=== PATIENT | female | born 1965 | race Caucasian/White ===

== ENCOUNTER → 2019-02-23 | Outpatient (CLI) | payer BC ==
[~2019-02-23] MED LIST: CATHETER FLUSH 10 ML SYR IV PRN; HOLD METFORMIN - RECEIVED CONTRAST 20 ML VIAL IV SCH; IOHEXOL 350 MG/ML 100 ML (OMNIPAQUE 350) VIAL IV ONE; NS 100 ML (IVPB) BAG IV ONE
[2019-02-23 15:59] LABS: CREATININE SERUM 1.05 MG/DL (0.60-1.30)
--- NOTE | 2019-02-23 16:28 | Diagnostic Imaging Report ---
PROCEDURE: CT angiography of the chest with contrast. TECHNIQUE: Multiple contiguous axial images were obtained through the chest after uneventful bolus administration of intravenous contrast. 3D reconstructed CTA MIP acquisitions were also performed. Auto Exposure Controls were utilized during the CT exam to meet ALARA standards for radiation dose reduction. INDICATION: Breathing difficulty and hemoptysis. COMPARISON: No prior studies are available for comparison. FINDINGS: Evaluation of the pulmonary arterial system is without evidence of thromboembolism. No filling defects are seen within central, lobar, or segmental branches. The thoracic aorta is normal in caliber. No dissection is seen. No definite axillary, hilar, or mediastinal lymphadenopathy is identified. No pericardial or pleural fluid is identified. No pulmonary masses or nodules are seen. There is some atelectasis or scarring in the right middle lobe. Upper abdomen is unremarkable. Bony structures are nonacute. IMPRESSION: 1. No evidence of pulmonary embolism or thoracic aortic dissection. No acute feature is identified. Dictated by: Dictated on workstation # [id number]
== END ==
LOC: RAD 15:22
PROVIDERS: ATTEND Internal Medicine Critical Care Medicine
DX: J44.9 Chronic obstructive pulmonary disease, unspecified (principal); R04.2 Hemoptysis; Z72.0 Tobacco use
CPT/HCPCS: 36415; 71275; 82565; 84520

== ENCOUNTER 2019-03-09 05:50 | Outpatient (CLI) | payer BC ==
[~2019-03-09] VITALS: Ht 162.6 cm; Wt 64.9 kg
[2019-03-09] MEDS ORDERED: VNL37.5T PO (14:36)
[2019-03-09] MEDS ORDERED: LOSA100T57 PO (14:36)
[2019-03-09] MEDS ORDERED: PANT40TA3 PO (14:36)
[2019-03-09] MEDS ORDERED: EZET10TA5 PO (14:36)
[2019-03-09] MEDS ORDERED: FLUT1BLS IH (14:36)
[2019-03-09] MEDS ORDERED: ZOLP10TA5 PO (14:36)
[2019-03-09] MEDS ORDERED: VERA180T11 PO (14:36)
[2019-03-09] MEDS ORDERED: ATOR20TA66 PO (14:36)
== END 2019-03-09 14:37 | disposition home or self-care (01) ==
LOC: PREOP 05:50
PROVIDERS: ATTEND Internal Medicine Critical Care Medicine
DX: Z01.818 Encounter for other preprocedural examination (principal)

== ENCOUNTER 2019-03-11 07:10 | Day surgery (SDC) | payer BC ==
[2019-03-11] VITALS (17 sets, daily range): BP systolic 114–237; BP diastolic 70–104
[~2019-03-11 07:10] MED LIST changes: +ATOR20TA66 PO; -CATHETER FLUSH 10 ML SYR IV PRN; +EZET10TA5 PO; +FLUT1BLS IH; -HOLD METFORMIN - RECEIVED CONTRAST 20 ML VIAL IV SCH; -IOHEXOL 350 MG/ML 100 ML (OMNIPAQUE 350) VIAL IV ONE; +LOSA100T57 PO; -NS 100 ML (IVPB) BAG IV ONE; +PANT40TA3 PO; +VERA180T11 PO; +VNL37.5T PO; +ZOLP10TA5 PO
[2019-03-11] MEDS ORDERED: LIDOCAINE PF 2% 5 ML (XYLOCAINE) VIAL INJ ONE (07:11)
[2019-03-11] MEDS ORDERED: LIDOCAINE JELLY 2% 6 ML SYRINGE MM ONE (07:11)
[2019-03-11] MEDS ORDERED: LIDOCAINE PF 1% 2 ML VIAL IJ ONE (07:11)
[2019-03-11] MEDS ORDERED: NS IV 500 ML 500 ML IV PRN (07:21)
[2019-03-11] MEDS ORDERED: NS IV 500 ML 500 ML ONE (07:25)
[2019-03-11] MEDS ORDERED: fentaNYL INJECTION 100 MCG/2 ML AMP IVP ONE (07:30)
[2019-03-11] MEDS ORDERED: MIDAZOLAM 2 MG/2 ML (VERSED) VIAL IVP ONE (07:30)
[2019-03-11] MEDS ORDERED: morphine INJ 10 MG/ML 1ML (SYR OR VIAL) ONE (08:06)
[2019-03-11] MEDS ORDERED: MIDAZOLAM 2 MG/2 ML (VERSED) VIAL ONE ×5 (08:06→08:13)
--- NOTE | 2019-03-11 08:07 | Progress Note-Pre Operative ---
Pre-Operative Progress Note H&P Reviewed The H&P was reviewed, patient examined and no changes noted. Time Seen by Provider: 08:07 Date H&P Reviewed: Mar 11, 2019 Time H&P Reviewed: 08:07 Pre-Operative Diagnosis: Cough ROCHELLE DOTY DO Mar 11, 2019 08:07
--- NOTE | 2019-03-11 08:08 | Pre-Op Note & Conscious Sedat ---
Pre-Operative Progress Note H&P Reviewed The H&P was reviewed, patient examined and no changes noted. Date H&P Reviewed: Mar 11, 2019 Time H&P Reviewed: 08:08 Conscious Sedation Pre-Proced Time 08:07 ASA Score 3 For ASA 3 and 4: Consider anesthesia and medical clearance. Also, for patients with a history of failed moderate sedation consider anesthesia. Airway Lungs Heart ASA score ASA 1: a normal healthy patient ASA 2: a patient with a mild systemic disease (mid diabetes, controlled hypertension, obesity ASA 3: a patient with a severe systemic disease that limits activity (angina, COPD, prior Myocardial infarction) ASA 4: a patient with an incapacitating disease that is a constant threat to life (CHF, renal failure) ASA 5: a moribund patient not expected to survive 24 hrs. (ruptured aneurysm) ASA 6: a declared brain- patient whose organs are being harvested. For emergent operations, add the letter E after the classification Mallampati Classification Grade 3 Sedation Plan Analgesia, Amnesia, Plan communicated to team members, Discussed options with patient/fam, Discussed risks with patient/fam The patient is an appropriate candidate to undergo the planned procedure, sedation, and anesthesia. The patient immediately re-assessed prior to indication. ROCHELLE DOTY DO Mar 11, 2019 08:08
--- NOTE | 2019-03-11 08:09 | Pulmonary Procedures ---
Pulmonary Procedures Date of Procedure Date of Service: Mar 11, 2019 Bronch Bronchoscopy with bronchoalveolar lavage (BAL), transbronchial washes and, brushes. Preop DX cough Postop DX: same Complications: none After informed consent obtained and formal time out pt was sedated using Fentanyl and Versed. Bronchoscope was advanced through the nare and vocal cords. 1% lidocaine was used to anesthetize vocal cords, epiglottis, toibas, and left/right main stem bronchus. An anatomical tour was undertaken down to the segmental bronchi bilaterally. No endobronchial lesions noted. From the RML a bronchoalveolar lavage (BAL), transbronchial washes and, brushes were obtained. Pt tolerated procedure well. No complications noted. Stat CXR is pending. ROCHELLE DOTY DO Mar 11, 2019 08:09
[2019-03-11] MEDS: morphine INJ 10 MG/ML 1ML (SYR OR VIAL) IVP PRN ×2 (08:24→08:27)
[2019-03-11] MEDS: morphine INJ 10 MG/ML 1ML (SYR OR VIAL) IVP STA (08:24)
--- NOTE | 2019-03-11 09:11 | Diagnostic Imaging Report ---
INDICATION: Status post bronchoscopy. TIME OF EXAM: 8:58 AM No prior studies are available for comparison. FINDINGS: The heart size is normal. There is no evidence of pneumothorax, status post bronchoscopy. There may be minimal infiltrate in right base. There is no effusion. IMPRESSION: No evidence of pneumothorax, status post bronchoscopy. Dictated by: Dictated on workstation # [id number]
--- OUTSIDE RECORDS SUMMARY | 2019-04-01 10:26 | XMS REPORT | Clinical Summary ---
Author Author Admin, [facility] Organization [facility] Address Unknown Phone Unavailable Allergies, Adverse Reactions, Alerts Allergy Name Reaction Description Start Date Severity Status Provider IVP DYE rash and itching Critical Active Audelia Ramon MD Conditions or Problems Problem Name Problem Code Onset Date Status Entry Date Provider Comment Standard Description Annotate Stress incontinence 788.32 Active Audelia Ramon MD Stress incontinence, male Cystocele 618.01 Active Audelia Ramon MD Cystocele, midline Tobacco abuse 305.1 Active Audelia Ramon MD Tobacco use disorder BMI 24-24.9 Resolved Vonda Cary MD Body Mass Index between 19-24, adult Cystocele Midline 618.01 Active Vonda Cary MD Cystocele, midline Yeast infection 112.9 Active Vonda Cary MD Candidiasis of unspecified site BMI 24-24.9 Active Vonda Cary MD Body Mass Index between 19-24, adult BMI 24-24.9 Inactive Lynette Elder Medication List Medication Instructions Start Date Stop Date Generic Name NDC Status Provider Patient Instruction DIFLUCAN 150 MG ORAL TABLET Take one by mouth daily FLUCONAZOLE 17270579528 No Longer Active Angelina Spencer Active VENLAFAXINE HCL ER 37.5 MG ORAL TABLET EXTENDED RELEASE 24 HOUR 1 tablet twice daily VENLAFAXINE HCL 90605468770 Active Bonita Ramírez LPN Active LOSARTAN POTASSIUM 50 MG ORAL TABLET once daily LOSARTAN POTASSIUM 65518562300 Active Bonita Ramírez LPN Active CALAN SR 180 MG ORAL TABLET EXTENDED RELEASE once at bedtime VERAPAMIL HCL 64403114550 Active Bonita Ramírez LPN Active AMBIEN 10 MG ORAL TABLET 1 tablet for sleep ZOLPIDEM TARTRATE 37680484513 Active Bonita Ramírez TECH INTERN Active METOCLOPRAMIDE HCL 5 MG ORAL TABLET 1 tablet twice daily METOCLOPRAMIDE HCL 07902319192 No Longer Active Bonita Ramírez LPN Active PROBIOTIC PEARLS ADVANTAGE ORAL CAPSULE PROBIOTIC PRODUCT 17527427388 No Longer Active Bonita Ramírez TECH INTERN Active FISH OIL 1000 MG ORAL CAPSULE DELAYED RELEASE 1 pill by mouth once daily for cholesterol OMEGA-3 FATTY ACIDS 30457097589 No Longer Active Bonita Ramírez LPN Active TRAZODONE HCL 150 MG ORAL TABLET 1 tablet at night TRAZODONE HCL 95106954038 No Longer Active Vonda Cary MD Active CRESTOR 20 MG ORAL TABLET 1 tablet daily ROSUVASTATIN CALCIUM 56930409232 Active Audelia Ramon MD Active LISINOPRIL 5 MG ORAL TABLET 1x daily if needed LISINOPRIL 05321036443 No Longer Active Audelia Ramon MD Active ZOLPIDEM TARTRATE 5 MG ORAL TABLET 1 pill by mouth nightly as needed for sleep ZOLPIDEM TARTRATE 66696270511 No Longer Active Audelia Ramon MD Active SPIRIVA RESPIMAT 2.5 MCG/ACT INHALATION AEROSOL SOLUTION 2 puffs daily TIOTROPIUM BROMIDE MONOHYDRATE 17397138692 Active Audelia Ramon MD Active ZETIA 10 MG ORAL TABLET 1 tablet daily EZETIMIBE 19870572645 Active Audelia Ramon MD Active PANTOPRAZOLE SODIUM 40 MG ORAL TABLET DELAYED RELEASE 1 pill by mouth daily PANTOPRAZOLE SODIUM 59371361575 Active Audelia Ramon MD Active ASPIRIN 81 MG ORAL TABLET CHEWABLE 1 daily ASPIRIN 58773202429 Active Audelia Ramon MD Active ZOLPIDEM TARTRATE 5 MG ORAL TABLET 1 pill by mouth nightly as needed for sleep ZOLPIDEM TARTRATE 5 MG ORAL TABLET 936321 ZOLPIDEM TARTRATE Inactive LISINOPRIL 5 MG ORAL TABLET 1x daily if needed LISINOPRIL 5 MG ORAL TABLET 961153 LISINOPRIL Inactive TRAZODONE HCL 150 MG ORAL TABLET 1 tablet at night TRAZODONE HCL 150 MG ORAL TABLET 701150 TRAZODONE HCL Inactive FISH OIL 1000 MG ORAL CAPSULE DELAYED RELEASE 1 pill by mouth once daily for cholesterol FISH OIL 1000 MG ORAL CAPSULE DELAYED RELEASE OMEGA- 3 FATTY ACIDS Inactive PROBIOTIC PEARLS ADVANTAGE ORAL CAPSULE PROBIOTIC PEARLS ADVANTAGE ORAL CAPSULE PROBIOTIC PRODUCT Inactive METOCLOPRAMIDE HCL 5 MG ORAL TABLET 1 tablet twice daily METOCLOPRAMIDE HCL 5 MG ORAL TABLET 879340 METOCLOPRAMIDE HCL Inactive DIFLUCAN 150 MG ORAL TABLET Take one by mouth daily DIFLUCAN 150 MG ORAL TABLET 247930 FLUCONAZOLE Inactive Immunizations Vaccine Administration Date Value Standard Description influenza immunization (Flu Vax) has been administered Done according to patient influenza virus vaccine, unspecified formulation Vital Signs Date Name Value Unit Range Description blood pressure, diastolic, repeated by physician 70 BP nogueira blood pressure, diastolic 70 mm[Hg] BP nogueira blood pressure, systolic, repeated by physician 112 BP sys blood pressure, systolic 112 mm[Hg] BP sys height E&M 65 [in_us] Bdy height pulse rate E&M 80 /min Heart rate temperature E&M 98.2 [degF] Body temperature weight E&M 147.31 [lb_av] Weight Measured blood pressure, diastolic, repeated by physician 71 BP nogueira blood pressure, diastolic 71 mm[Hg] BP n[place]ira blood pressure, systolic, repeated by physician 113 BP sys blood pressure, systolic 113 mm[Hg] BP sys height E&M 65 [in_us] Bdy height pulse rate E&M 79 /min Heart rate weight E&M 147.31 [lb_av] Weight Measured blood pressure, diastolic, repeated by physician 79 BP nogueira blood pressure, diastolic 79 mm[Hg] BP n[place] blood pressure, systolic, repeated by physician 124 BP sys blood pressure, systolic 124 mm[Hg] BP sys height E&M 65 [in_us] Bdy height pulse rate E&M 74 /min Heart rate temperature E&M 98.6 [degF] Body temperature weight E&M 146.31 [lb_av] Weight Measured Encounters Code Encounter Date Provider Facility CPT-89243 Level 4 New Patient 19:53:31 METERS SUPERINTENDENT Vonda Cary MD [facility] CPT-72932 Level 4 Est. Patient 09:44:43 CDT Audelia Ramon MD [facility] Procedures Code Procedure Name Date Entry Date Standard Description CPT-75586 Postop F/U Visit 11:43:39 CDT CPT-23507 Postop F/U Visit 19:48:51 METERS SUPERINTENDENT CPT-65306 Bladder Scan 19:53:31 METERS SUPERINTENDENT CPT-47146 Smoking Cessation counseling 09:45:04 CDT CPT-OV Office Visit 07:50:14 CDT
--- OUTSIDE RECORDS SUMMARY | 2019-04-01 10:27 | XMS REPORT | Clinical Summary ---
Author Author Admin, [facility] Organization [facility] Address Unknown Phone Unavailable Allergies, Adverse Reactions, [...] TABLET Take one by mouth daily FLUCONAZOLE 73202617592 No Longer Active Angelina Spencer Active VENLAFAXINE HCL ER 37.5 MG ORAL TABLET EXTENDED RELEASE 24 HOUR 1 tablet twice daily VENLAFAXINE HCL 52070509203 Active Bonita Ramírez LPN Active LOSARTAN POTASSIUM 50 MG ORAL TABLET once daily LOSARTAN POTASSIUM 12150464484 Active Bonita Ramírez LPN Active CALAN SR 180 MG ORAL TABLET EXTENDED RELEASE once at bedtime VERAPAMIL HCL 45956317411 Active Bonita Ramírez LPN Active AMBIEN 10 MG ORAL TABLET 1 tablet for sleep ZOLPIDEM TARTRATE 78246042764 Active Bonita Ramírez LPN Active METOCLOPRAMIDE HCL 5 MG ORAL TABLET 1 tablet twice daily METOCLOPRAMIDE HCL 37497176095 No Longer Active Bonita Ramírez LPN Active PROBIOTIC PEARLS ADVANTAGE ORAL CAPSULE PROBIOTIC PRODUCT 35440920857 No Longer Active Bonita Ramírez VARNISH BLENDER Active FISH OIL 1000 MG ORAL CAPSULE DELAYED RELEASE 1 pill by mouth once daily for cholesterol OMEGA-3 FATTY ACIDS 76591758923 No Longer Active Bonita Ramírez LPN Active TRAZODONE HCL 150 MG ORAL TABLET 1 tablet at night TRAZODONE HCL 62418400877 No Longer Active Vonda Cary MD Active CRESTOR 20 MG ORAL TABLET 1 tablet daily ROSUVASTATIN CALCIUM 32679708835 Active Audelia Ramon MD Active LISINOPRIL 5 MG ORAL TABLET 1x daily if needed LISINOPRIL 61309749851 No Longer Active Audelia Ramon MD Active ZOLPIDEM TARTRATE 5 MG ORAL TABLET 1 pill by mouth nightly as needed for sleep ZOLPIDEM TARTRATE 27932996227 No Longer Active Audelia Ramon MD Active SPIRIVA RESPIMAT 2.5 MCG/ACT INHALATION AEROSOL SOLUTION 2 puffs daily TIOTROPIUM BROMIDE MONOHYDRATE 65345279661 Active Audelia Ramon MD Active ZETIA 10 MG ORAL TABLET 1 tablet daily EZETIMIBE 66870460210 Active Audelia Ramon MD Active PANTOPRAZOLE SODIUM 40 MG ORAL TABLET DELAYED RELEASE 1 pill by mouth daily PANTOPRAZOLE SODIUM 11331899146 Active Audelia Ramon MD Active ASPIRIN 81 MG ORAL TABLET CHEWABLE 1 daily ASPIRIN 60023467025 Active Audelia Ramon MD Active ZOLPIDEM TARTRATE 5 MG ORAL TABLET 1 pill by mouth nightly as needed for sleep ZOLPIDEM TARTRATE 5 MG ORAL TABLET 694854 ZOLPIDEM TARTRATE Inactive LISINOPRIL 5 MG ORAL TABLET 1x daily if needed LISINOPRIL 5 MG ORAL TABLET 466000 LISINOPRIL Inactive TRAZODONE HCL 150 MG ORAL TABLET 1 tablet at night TRAZODONE HCL 150 MG ORAL TABLET 694347 TRAZODONE HCL Inactive FISH OIL 1000 MG ORAL CAPSULE DELAYED RELEASE 1 pill by mouth once daily for cholesterol FISH OIL 1000 MG ORAL CAPSULE DELAYED RELEASE OMEGA- 3 FATTY ACIDS Inactive PROBIOTIC PEARLS ADVANTAGE ORAL CAPSULE PROBIOTIC PEARLS ADVANTAGE ORAL CAPSULE PROBIOTIC PRODUCT Inactive METOCLOPRAMIDE HCL 5 MG ORAL TABLET 1 tablet twice daily METOCLOPRAMIDE HCL 5 MG ORAL TABLET 503911 METOCLOPRAMIDE HCL Inactive DIFLUCAN 150 MG ORAL TABLET Take one by mouth daily DIFLUCAN 150 MG ORAL TABLET 154510 FLUCONAZOLE Inactive Immunizations Vaccine Administration Date Value [...] Measured Encounters Code Encounter Date Provider Facility CPT-99370 Level 4 New Patient 19:53:31 EXTERNAL GRINDER Vonda Cary MD [facility] CPT-81980 Level 4 Est. Patient 09:44:43 CDT Audelia Ramon MD [facility] Procedures Code Procedure Name Date Entry Date Standard Description CPT-52702 Postop F/U Visit 11:43:39 CDT CPT-22295 Postop F/U Visit 19:48:51 EXTERNAL GRINDER CPT-80270 Bladder Scan 19:53:31 EXTERNAL GRINDER CPT-17449 Smoking Cessation counseling 09:45:04 CDT CPT-OV Office Visit 07:50:14 CDT
--- OUTSIDE RECORDS SUMMARY | 2019-04-01 10:27 | XMS REPORT | Clinical Summary ---
Author Author Admin, [facility] Organization [facility] Address Unknown Phone Unavailable Allergies, Adverse [...] MD Candidiasis of unspecified site BMI 24-24.9 Inactive Lynette Ching Medication List Medication Instructions Start Date Stop Date Generic Name NDC Status Provider Patient Instruction DIFLUCAN 150 MG ORAL TABLET Take one by mouth daily FLUCONAZOLE 74171315661 No Longer Active Angelina Spencer Active VENLAFAXINE HCL ER 37.5 MG ORAL TABLET EXTENDED RELEASE 24 HOUR 1 tablet twice daily VENLAFAXINE HCL 20319551401 Active Bonita Ramírez LPN Active LOSARTAN POTASSIUM 50 MG ORAL TABLET once daily LOSARTAN POTASSIUM 18630524079 Active Bonita Ramírez LPN Active CALAN SR 180 MG ORAL TABLET EXTENDED RELEASE once at bedtime VERAPAMIL HCL 26709919307 Active Bonita Ramírez LPN Active AMBIEN 10 MG ORAL TABLET 1 tablet for sleep ZOLPIDEM TARTRATE 31903823013 Active Bonita Ramírez LPN Active METOCLOPRAMIDE HCL 5 MG ORAL TABLET 1 tablet twice daily METOCLOPRAMIDE HCL 72125704401 No Longer Active Bonita Ramírez LPN Active PROBIOTIC PEARLS ADVANTAGE ORAL CAPSULE PROBIOTIC PRODUCT 96739785006 No Longer Active Bonita Ramírez LPN Active FISH OIL 1000 MG ORAL CAPSULE DELAYED RELEASE 1 pill by mouth once daily for cholesterol OMEGA-3 FATTY ACIDS 65688672961 No Longer Active Bonita Ramírez LPN Active TRAZODONE HCL 150 MG ORAL TABLET 1 tablet at night TRAZODONE HCL 24572387240 No Longer Active Vonda Cary MD Active CRESTOR 20 MG ORAL TABLET 1 tablet daily ROSUVASTATIN CALCIUM 86793726830 Active Audelia Ramon MD Active LISINOPRIL 5 MG ORAL TABLET 1x daily if needed LISINOPRIL 66998597606 No Longer Active Audelia Ramon MD Active ZOLPIDEM TARTRATE 5 MG ORAL TABLET 1 pill by mouth nightly as needed for sleep ZOLPIDEM TARTRATE 77635524472 No Longer Active Audelia Ramon MD Active SPIRIVA RESPIMAT 2.5 MCG/ACT INHALATION AEROSOL SOLUTION 2 puffs daily TIOTROPIUM BROMIDE MONOHYDRATE 89027508015 Active Audelia Ramon MD Active ZETIA 10 MG ORAL TABLET 1 tablet daily EZETIMIBE 87671320482 Active Audelia Ramon MD Active PANTOPRAZOLE SODIUM 40 MG ORAL TABLET DELAYED RELEASE 1 pill by mouth daily PANTOPRAZOLE SODIUM 11470540567 Active Audelia Ramon MD Active ASPIRIN 81 MG ORAL TABLET CHEWABLE 1 daily ASPIRIN 08956508573 Active Audelia Ramon MD Active ZOLPIDEM TARTRATE 5 MG ORAL TABLET 1 pill by mouth nightly as needed for sleep ZOLPIDEM TARTRATE 5 MG ORAL TABLET 951669 ZOLPIDEM TARTRATE Inactive LISINOPRIL 5 MG ORAL TABLET 1x daily if needed LISINOPRIL 5 MG ORAL TABLET 088557 LISINOPRIL Inactive TRAZODONE HCL 150 MG ORAL TABLET 1 tablet at night TRAZODONE HCL 150 MG ORAL TABLET 762954 TRAZODONE HCL Inactive FISH OIL 1000 MG ORAL CAPSULE DELAYED RELEASE 1 pill by mouth once daily for cholesterol FISH OIL 1000 MG ORAL CAPSULE DELAYED RELEASE OMEGA- 3 FATTY ACIDS Inactive PROBIOTIC PEARLS ADVANTAGE ORAL CAPSULE PROBIOTIC PEARLS ADVANTAGE ORAL CAPSULE PROBIOTIC PRODUCT Inactive METOCLOPRAMIDE HCL 5 MG ORAL TABLET 1 tablet twice daily METOCLOPRAMIDE HCL 5 MG ORAL TABLET 690901 METOCLOPRAMIDE HCL Inactive DIFLUCAN 150 MG ORAL TABLET Take one by mouth daily DIFLUCAN 150 MG ORAL TABLET 323702 FLUCONAZOLE Inactive Immunizations Vaccine Administration Date Value Standard Description influenza immunization (Flu Vax) has been administered Done according to patient influenza virus vaccine, unspecified formulation Vital Signs Date Name Value Unit Range Description blood pressure, diastolic, repeated by physician 71 [...] Measured Encounters Code Encounter Date Provider Facility CPT-91742 Level 4 New Patient 19:53:31 WEATHERIZATION DIRECTOR Vonda Cary MD [facility] CPT-56999 Level 4 Est. Patient 09:44:43 CDT Audelia Ramon MD [facility] Procedures Code Procedure Name Date Entry Date Standard Description CPT-65114 Postop F/U Visit 19:48:51 WEATHERIZATION DIRECTOR CPT-60487 Bladder Scan 19:53:31 WEATHERIZATION DIRECTOR CPT-26068 Smoking Cessation counseling 09:45:04 CDT CPT-OV Office Visit 07:50:14 CDT
--- OUTSIDE RECORDS SUMMARY | 2019-04-01 10:27 | XMS REPORT | Clinical Summary ---
Author Author Admin, [facility] Organization [facility] Address Unknown Phone Unavailable Allergies, Adverse Reactions, [...] TABLET Take one by mouth daily FLUCONAZOLE 89040229173 No Longer Active Angelina Spencer Active VENLAFAXINE HCL ER 37.5 MG ORAL TABLET EXTENDED RELEASE 24 HOUR 1 tablet twice daily VENLAFAXINE HCL 23775053208 Active Bonita Ramírez LPN Active LOSARTAN POTASSIUM 50 MG ORAL TABLET once daily LOSARTAN POTASSIUM 77040586700 Active Bonita Ramírez LPN Active CALAN SR 180 MG ORAL TABLET EXTENDED RELEASE once at bedtime VERAPAMIL HCL 82772730281 Active Bonita Ramírez LPN Active AMBIEN 10 MG ORAL TABLET 1 tablet for sleep ZOLPIDEM TARTRATE 48971549008 Active Bonita Ramírez RIM TURNING MACHINE OPERATOR Active METOCLOPRAMIDE HCL 5 MG ORAL TABLET 1 tablet twice daily METOCLOPRAMIDE HCL 03530835663 No Longer Active Bonita Ramírez LPN Active PROBIOTIC PEARLS ADVANTAGE ORAL CAPSULE PROBIOTIC PRODUCT 90412989431 No Longer Active Bonita Ramírez RIM TURNING MACHINE OPERATOR Active FISH OIL 1000 MG ORAL CAPSULE DELAYED RELEASE 1 pill by mouth once daily for cholesterol OMEGA-3 FATTY ACIDS 68219751366 No Longer Active Bonita Ramírez LPN Active TRAZODONE HCL 150 MG ORAL TABLET 1 tablet at night TRAZODONE HCL 90538837717 No Longer Active Vonda Cary MD Active CRESTOR 20 MG ORAL TABLET 1 tablet daily ROSUVASTATIN CALCIUM 95936470465 Active Audelia Ramon MD Active LISINOPRIL 5 MG ORAL TABLET 1x daily if needed LISINOPRIL 77042055218 No Longer Active Audelia Ramon MD Active ZOLPIDEM TARTRATE 5 MG ORAL TABLET 1 pill by mouth nightly as needed for sleep ZOLPIDEM TARTRATE 78865608702 No Longer Active Audelia Ramon MD Active SPIRIVA RESPIMAT 2.5 MCG/ACT INHALATION AEROSOL SOLUTION 2 puffs daily TIOTROPIUM BROMIDE MONOHYDRATE 43596294100 Active Audelia Ramon MD Active ZETIA 10 MG ORAL TABLET 1 tablet daily EZETIMIBE 82433248274 Active Audelia Ramon MD Active PANTOPRAZOLE SODIUM 40 MG ORAL TABLET DELAYED RELEASE 1 pill by mouth daily PANTOPRAZOLE SODIUM 21628619052 Active Audelia Ramon MD Active ASPIRIN 81 MG ORAL TABLET CHEWABLE 1 daily ASPIRIN 60017676544 Active Audelia Ramon MD Active ZOLPIDEM TARTRATE 5 MG ORAL TABLET 1 pill by mouth nightly as needed for sleep ZOLPIDEM TARTRATE 5 MG ORAL TABLET 728925 ZOLPIDEM TARTRATE Inactive LISINOPRIL 5 MG ORAL TABLET 1x daily if needed LISINOPRIL 5 MG ORAL TABLET 046152 LISINOPRIL Inactive TRAZODONE HCL 150 MG ORAL TABLET 1 tablet at night TRAZODONE HCL 150 MG ORAL TABLET 776885 TRAZODONE HCL Inactive FISH OIL 1000 MG ORAL CAPSULE DELAYED RELEASE 1 pill by mouth once daily for cholesterol FISH OIL 1000 MG ORAL CAPSULE DELAYED RELEASE OMEGA- 3 FATTY ACIDS Inactive PROBIOTIC PEARLS ADVANTAGE ORAL CAPSULE PROBIOTIC PEARLS ADVANTAGE ORAL CAPSULE PROBIOTIC PRODUCT Inactive METOCLOPRAMIDE HCL 5 MG ORAL TABLET 1 tablet twice daily METOCLOPRAMIDE HCL 5 MG ORAL TABLET 808117 METOCLOPRAMIDE HCL Inactive DIFLUCAN 150 MG ORAL TABLET Take one by mouth daily DIFLUCAN 150 MG ORAL TABLET 661954 FLUCONAZOLE Inactive Immunizations Vaccine Administration Date Value [...] Measured Encounters Code Encounter Date Provider Facility CPT-19537 Level 4 New Patient 19:53:31 ALTERATIONS EXPERT Vonda Cary MD [facility] CPT-29173 Level 4 Est. Patient 09:44:43 CDT Audelia Ramon MD [facility] Procedures Code Procedure Name Date Entry Date Standard Description CPT-50545 Postop F/U Visit 11:43:39 CDT CPT-94864 Postop F/U Visit 19:48:51 ALTERATIONS EXPERT CPT-82144 Bladder Scan 19:53:31 ALTERATIONS EXPERT CPT-85880 Smoking Cessation counseling 09:45:04 CDT CPT-OV Office Visit 07:50:14 CDT
--- OUTSIDE RECORDS SUMMARY | 2019-04-01 10:27 | XMS REPORT | Clinical Summary ---
Author Author Admin, [facility] Organization [facility] Address Unknown Phone Unavailable Allergies, Adverse Reactions, Alerts Allergy Name Reaction Description Start Date Severity Status Provider IVP DYE rash and itching Critical Active Audelia Rmaon MD Conditions or Problems Problem Name Problem [...] TABLET Take one by mouth daily FLUCONAZOLE 28895586985 No Longer Active Angelina Spencer Active VENLAFAXINE HCL ER 37.5 MG ORAL TABLET EXTENDED RELEASE 24 HOUR 1 tablet twice daily VENLAFAXINE HCL 44007516082 Active Bonita Ramírez LPN Active LOSARTAN POTASSIUM 50 MG ORAL TABLET once daily LOSARTAN POTASSIUM 48557383371 Active Bonita Ramírez LPN Active CALAN SR 180 MG ORAL TABLET EXTENDED RELEASE once at bedtime VERAPAMIL HCL 43205090613 Active Bonita Ramírez LPN Active AMBIEN 10 MG ORAL TABLET 1 tablet for sleep ZOLPIDEM TARTRATE 21422173173 Active Bonita Ramírez LPN Active METOCLOPRAMIDE HCL 5 MG ORAL TABLET 1 tablet twice daily METOCLOPRAMIDE HCL 59743483764 No Longer Active Bonita Ramírez LPN Active PROBIOTIC PEARLS ADVANTAGE ORAL CAPSULE PROBIOTIC PRODUCT 85554277269 No Longer Active Bonita Ramírez LPN Active FISH OIL 1000 MG ORAL CAPSULE DELAYED RELEASE 1 pill by mouth once daily for cholesterol OMEGA-3 FATTY ACIDS 50713331349 No Longer Active Bonita Ramírez LPN Active TRAZODONE HCL 150 MG ORAL TABLET 1 tablet at night TRAZODONE HCL 64402740191 No Longer Active Vonda Cary MD Active CRESTOR 20 MG ORAL TABLET 1 tablet daily ROSUVASTATIN CALCIUM 14133802312 Active Audelia Ramon MD Active LISINOPRIL 5 MG ORAL TABLET 1x daily if needed LISINOPRIL 52297645025 No Longer Active Audelia Ramon MD Active ZOLPIDEM TARTRATE 5 MG ORAL TABLET 1 pill by mouth nightly as needed for sleep ZOLPIDEM TARTRATE 73413601737 No Longer Active Audelia Ramon MD Active SPIRIVA RESPIMAT 2.5 MCG/ACT INHALATION AEROSOL SOLUTION 2 puffs daily TIOTROPIUM BROMIDE MONOHYDRATE 14820413844 Active Audelia Ramon MD Active ZETIA 10 MG ORAL TABLET 1 tablet daily EZETIMIBE 02367703866 Active Audelia Ramon MD Active PANTOPRAZOLE SODIUM 40 MG ORAL TABLET DELAYED RELEASE 1 pill by mouth daily PANTOPRAZOLE SODIUM 71013768706 Active Audelia Ramon MD Active ASPIRIN 81 MG ORAL TABLET CHEWABLE 1 daily ASPIRIN 02908135921 Active Audelia Ramon MD Active ZOLPIDEM TARTRATE 5 MG ORAL TABLET 1 pill by mouth nightly as needed for sleep ZOLPIDEM TARTRATE 5 MG ORAL TABLET 697475 ZOLPIDEM TARTRATE Inactive LISINOPRIL 5 MG ORAL TABLET 1x daily if needed LISINOPRIL 5 MG ORAL TABLET 137078 LISINOPRIL Inactive TRAZODONE HCL 150 MG ORAL TABLET 1 tablet at night TRAZODONE HCL 150 MG ORAL TABLET 537383 TRAZODONE HCL Inactive FISH OIL 1000 MG ORAL CAPSULE DELAYED RELEASE 1 pill by mouth once daily for cholesterol FISH OIL 1000 MG ORAL CAPSULE DELAYED RELEASE OMEGA- 3 FATTY ACIDS Inactive PROBIOTIC PEARLS ADVANTAGE ORAL CAPSULE PROBIOTIC PEARLS ADVANTAGE ORAL CAPSULE PROBIOTIC PRODUCT Inactive METOCLOPRAMIDE HCL 5 MG ORAL TABLET 1 tablet twice daily METOCLOPRAMIDE HCL 5 MG ORAL TABLET 157731 METOCLOPRAMIDE HCL Inactive DIFLUCAN 150 MG ORAL TABLET Take one by mouth daily DIFLUCAN 150 MG ORAL TABLET 680761 FLUCONAZOLE Inactive Immunizations Vaccine Administration Date Value [...] Measured Encounters Code Encounter Date Provider Facility CPT-81160 Level 4 New Patient 19:53:31 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 Patient 09:44:43 CDT Audelia Ramon MD [facility] Procedures Code Procedure Name Date Entry Date Standard Description CPT-70096 Postop F/U Visit 19:48:51 PREMIUM CANCELLATION CLERK CPT-05591 Bladder Scan 19:53:31 PREMIUM CANCELLATION CLERK CPT-53170 Smoking Cessation counseling 09:45:04 CDT CPT-OV Office Visit 07:50:14 CDT
--- OUTSIDE RECORDS SUMMARY | 2019-04-01 10:28 | XMS REPORT | Clinical Summary ---
Author Author Admin, [facility] Organization [facility] Address Unknown Phone Unavailable Allergies, Adverse Reactions, [...] TABLET Take one by mouth daily FLUCONAZOLE 23681026538 Active Angelina Spencer Active VENLAFAXINE HCL ER 37.5 MG ORAL TABLET EXTENDED RELEASE 24 HOUR 1 tablet twice daily VENLAFAXINE HCL 86295311028 Active Bonita Ramírez LPN Active LOSARTAN POTASSIUM 50 MG ORAL TABLET once daily LOSARTAN POTASSIUM 74981106731 Active Bonita Ramírez LPN Active CALAN SR 180 MG ORAL TABLET EXTENDED RELEASE once at bedtime VERAPAMIL HCL 06036777473 Active Bonita Ramírez LPN Active AMBIEN 10 MG ORAL TABLET 1 tablet for sleep ZOLPIDEM TARTRATE 50438244683 Active Bonita Ramírez LPN Active METOCLOPRAMIDE HCL 5 MG ORAL TABLET 1 tablet twice daily METOCLOPRAMIDE HCL 43618810013 No Longer Active Bonita Ramírez [facility] Active PROBIOTIC PEARLS ADVANTAGE ORAL CAPSULE PROBIOTIC PRODUCT 37400986664 No Longer Active Bonita Ramírez [facility] Active FISH OIL 1000 MG ORAL CAPSULE DELAYED RELEASE 1 pill by mouth once daily for cholesterol OMEGA-3 FATTY ACIDS 34520977677 No Longer Active Bonita [facility] Active TRAZODONE HCL 150 MG ORAL TABLET 1 tablet at night TRAZODONE HCL 01084177390 No Longer Active Vonda Cary MD Active CRESTOR 20 MG ORAL TABLET 1 tablet daily ROSUVASTATIN CALCIUM 54194980620 Active Audelia Ramon MD Active LISINOPRIL 5 MG ORAL TABLET 1x daily if needed LISINOPRIL 97872573194 No Longer Active Audelia Ramon MD Active ZOLPIDEM TARTRATE 5 MG ORAL TABLET 1 pill by mouth nightly as needed for sleep ZOLPIDEM TARTRATE 45571620222 No Longer Active Audelia Ramon MD Active SPIRIVA RESPIMAT 2.5 MCG/ACT INHALATION AEROSOL SOLUTION 2 puffs daily TIOTROPIUM BROMIDE MONOHYDRATE 27732846902 Active Audelia Ramon MD Active ZETIA 10 MG ORAL TABLET 1 tablet daily EZETIMIBE 95281072628 Active Audelia Ramon MD Active PANTOPRAZOLE SODIUM 40 MG ORAL TABLET DELAYED RELEASE 1 pill by mouth daily PANTOPRAZOLE SODIUM 94084923773 Active Audelia Ramon MD Active ASPIRIN 81 MG ORAL TABLET CHEWABLE 1 daily ASPIRIN 32907068323 Active Audelia Ramon MD Active METOCLOPRAMIDE HCL 5 MG ORAL TABLET 1 tablet twice daily METOCLOPRAMIDE HCL 5 MG ORAL TABLET 950199 METOCLOPRAMIDE HCL Inactive TRAZODONE HCL 150 MG ORAL TABLET 1 tablet at night TRAZODONE HCL 150 MG ORAL TABLET 028829 TRAZODONE HCL Inactive LISINOPRIL 5 MG ORAL TABLET 1x daily if needed LISINOPRIL 5 MG ORAL TABLET 977841 LISINOPRIL Inactive ZOLPIDEM TARTRATE 5 MG ORAL TABLET 1 pill by mouth nightly as needed for sleep ZOLPIDEM TARTRATE 5 MG ORAL TABLET 296101 ZOLPIDEM TARTRATE Inactive FISH OIL 1000 MG ORAL CAPSULE DELAYED RELEASE 1 pill by mouth once daily for cholesterol FISH OIL 1000 MG ORAL CAPSULE DELAYED RELEASE OMEGA- 3 FATTY ACIDS Inactive PROBIOTIC PEARLS ADVANTAGE ORAL CAPSULE PROBIOTIC PEARLS ADVANTAGE ORAL CAPSULE PROBIOTIC PRODUCT Inactive Immunizations Vaccine Administration Date Value Standard [...] Measured Encounters Code Encounter Date Provider Facility CPT-87217 Level 4 New Patient 19:53:31 MICHELLE Cary MD [facility] CPT-45820 Level 4 Est. Patient 09:44:43 CDT Audelia Ramon MD [facility] Procedures Code Procedure Name Date Entry Date Standard Description CPT-29618 Postop F/U Visit 19:48:51 DISTRIBUTOR OPERATOR CPT-12634 Bladder Scan 19:53:31 DISTRIBUTOR OPERATOR CPT-91833 Smoking Cessation counseling 09:45:04 CDT CPT-OV Office Visit 07:50:14 CDT
--- OUTSIDE RECORDS SUMMARY | 2019-04-01 10:28 | XMS REPORT | Clinical Summary ---
Author Author Admin, [facility] Organization [facility] Address Unknown Phone Unavailable Allergies, Adverse Reactions, [...] Ramon MD Tobacco use disorder BMI 24-24.9 Active Vonda Cary MD Body Mass Index between 19-24, adult Cystocele Midline 618.01 Active Vonda Cary MD Cystocele, midline Medication List Medication Instructions Start Date Stop Date Generic Name NDC Status Provider Patient Instruction TRAZODONE HCL 150 MG ORAL TABLET 1 tablet at night TRAZODONE HCL 77083531988 No Longer Active Vonda Cary MD Active CRESTOR 20 MG ORAL TABLET 1 tablet daily ROSUVASTATIN CALCIUM 83255195418 Active Audelia Ramon MD Active LISINOPRIL 5 MG ORAL TABLET 1x daily if needed LISINOPRIL 57650612081 No Longer Active Audelia Ramon MD Active ZOLPIDEM TARTRATE 5 MG ORAL TABLET 1 pill by mouth nightly as needed for sleep ZOLPIDEM TARTRATE 40734622010 No Longer Active Audelia Ramon MD Active SPIRIVA RESPIMAT 2.5 MCG/ACT INHALATION AEROSOL SOLUTION 2 puffs daily TIOTROPIUM BROMIDE MONOHYDRATE 26710041935 Active Audelia Ramon MD Active METOCLOPRAMIDE HCL 5 MG ORAL TABLET 1 tablet twice daily METOCLOPRAMIDE HCL 63598079449 Active Audelia Ramon MD Active PROBIOTIC PEARLS ADVANTAGE ORAL CAPSULE PROBIOTIC PRODUCT 88312796377 Active Audelia Ramno MD Active ZETIA 10 MG ORAL TABLET 1 tablet daily EZETIMIBE 10994601483 Active Audelia Ramon MD Active PANTOPRAZOLE SODIUM 40 MG ORAL TABLET DELAYED RELEASE 1 pill by mouth daily PANTOPRAZOLE SODIUM 79099989601 Active Audelia Ramon MD Active ASPIRIN 81 MG ORAL TABLET CHEWABLE 1 daily ASPIRIN 86110614760 Active Audelia Ramon MD Active FISH OIL 1000 MG ORAL CAPSULE DELAYED RELEASE 1 pill by mouth once daily for cholesterol OMEGA-3 FATTY ACIDS 47000849313 Active Audelia Ramon MD Active ZOLPIDEM TARTRATE 5 MG ORAL TABLET 1 pill by mouth nightly as needed for sleep ZOLPIDEM TARTRATE 5 MG ORAL TABLET 464970 ZOLPIDEM TARTRATE Inactive LISINOPRIL 5 MG ORAL TABLET 1x daily if needed LISINOPRIL 5 MG ORAL TABLET 451557 LISINOPRIL Inactive TRAZODONE HCL 150 MG ORAL TABLET 1 tablet at night TRAZODONE HCL 150 MG ORAL TABLET 261256 TRAZODONE HCL Inactive Immunizations Vaccine Administration Date Value Standard Description influenza immunization (Flu Vax) has been administered Done according to patient influenza virus vaccine, unspecified formulation Vital Signs Date Name Value Unit Range Description blood pressure, diastolic, repeated by physician 79 BP nogueira blood pressure, diastolic 79 mm[Hg] BP nogueira blood pressure, systolic, repeated by physician 124 BP sys blood pressure, systolic 124 mm[Hg] BP sys height E&M 65 [in_us] Bdy height pulse rate E&M 74 /min Heart rate temperature E&M 98.6 [degF] Body temperature weight E&M 146.31 [lb_av] Weight Measured Encounters Code Encounter Date Provider Facility CPT-26852 Level 4 New Patient 19:53:31 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 Patient 09:44:43 CDT Audelia Ramon MD [facility] Procedures Code Procedure Name Date Entry Date Standard Description CPT-53290 Bladder Scan 19:53:31 FRENCH EDGE OPERATOR CPT-18471 Smoking Cessation counseling 09:45:04 CDT CPT-OV Office Visit 07:50:14 CDT
--- OUTSIDE RECORDS SUMMARY | 2019-04-01 10:28 | XMS REPORT | Clinical Summary ---
Author Author Admin, [facility] Organization [facility] Address Unknown Phone Unavailable Allergies, Adverse Reactions, [...] MD Cystocele, midline Tobacco abuse 305.1 Active Auedlia Ramon MD Tobacco use disorder BMI 24-24.9 Active Vonda Cary MD Body Mass Index between 19-24, adult Cystocele Midline 618.01 Active Vonda Cary MD Cystocele, midline Medication List Medication Instructions Start Date Stop Date Generic Name NDC Status Provider Patient Instruction VENLAFAXINE HCL ER 37.5 MG ORAL TABLET EXTENDED RELEASE 24 HOUR 1 tablet twice daily VENLAFAXINE HCL 27402109734 Active Bonita Ramírez LPN Active LOSARTAN POTASSIUM 50 MG ORAL TABLET once daily LOSARTAN POTASSIUM 13461240268 Active Bonita Ramírez SHIFT LAB TECHNICIAN Active CALAN SR 180 MG ORAL TABLET EXTENDED RELEASE once at bedtime VERAPAMIL HCL 00625448088 Active Bonita Ramírez SHIFT LAB TECHNICIAN Active AMBIEN 10 MG ORAL TABLET 1 tablet for sleep ZOLPIDEM TARTRATE 35270890489 Active Bonita Darrell G[facility] Active METOCLOPRAMIDE HCL 5 MG ORAL TABLET 1 tablet twice daily METOCLOPRAMIDE HCL 27978432356 No Longer Active Bonita Ramírez SHIFT LAB TECHNICIAN Active PROBIOTIC PEARLS ADVANTAGE ORAL CAPSULE PROBIOTIC PRODUCT 37666734963 No Longer Active Bonita Ramírez SHIFT LAB TECHNICIAN Active FISH OIL 1000 MG ORAL CAPSULE DELAYED RELEASE 1 pill by mouth once daily for cholesterol OMEGA-3 FATTY ACIDS 93241085843 No Longer Active Bonita Ramírez LPN Active TRAZODONE HCL 150 MG ORAL TABLET 1 tablet at night TRAZODONE HCL 17208366406 No Longer Active Vonda Cary MD Active CRESTOR 20 MG ORAL TABLET 1 tablet daily ROSUVASTATIN CALCIUM 52188181938 Active Audelia Ramon MD Active LISINOPRIL 5 MG ORAL TABLET 1x daily if needed LISINOPRIL 35867747187 No Longer Active Audelia Ramon MD Active ZOLPIDEM TARTRATE 5 MG ORAL TABLET 1 pill by mouth nightly as needed for sleep ZOLPIDEM TARTRATE 77450819367 No Longer Active Audelia Ramon MD Active SPIRIVA RESPIMAT 2.5 MCG/ACT INHALATION AEROSOL SOLUTION 2 puffs daily TIOTROPIUM BROMIDE MONOHYDRATE 60115085254 Active Audelia Ramon MD Active ZETIA 10 MG ORAL TABLET 1 tablet daily EZETIMIBE 90500051564 Active Audelia Ramon MD Active PANTOPRAZOLE SODIUM 40 MG ORAL TABLET DELAYED RELEASE 1 pill by mouth daily PANTOPRAZOLE SODIUM 31616992822 Active Audelia Ramon MD Active ASPIRIN 81 MG ORAL TABLET CHEWABLE 1 daily ASPIRIN 95756597964 Active Audelia Ramon MD Active ZOLPIDEM TARTRATE 5 MG ORAL TABLET 1 pill by mouth nightly as needed for sleep ZOLPIDEM TARTRATE 5 MG ORAL TABLET 088648 ZOLPIDEM TARTRATE Inactive LISINOPRIL 5 MG ORAL TABLET 1x daily if needed LISINOPRIL 5 MG ORAL TABLET 482157 LISINOPRIL Inactive TRAZODONE HCL 150 MG ORAL TABLET 1 tablet at night TRAZODONE HCL 150 MG ORAL TABLET 177831 TRAZODONE HCL Inactive FISH OIL 1000 MG ORAL CAPSULE DELAYED RELEASE 1 pill by mouth once daily for cholesterol FISH OIL 1000 MG ORAL CAPSULE DELAYED RELEASE OMEGA- 3 FATTY ACIDS Inactive PROBIOTIC PEARLS ADVANTAGE ORAL CAPSULE PROBIOTIC PEARLS ADVANTAGE ORAL CAPSULE PROBIOTIC PRODUCT Inactive METOCLOPRAMIDE HCL 5 MG ORAL TABLET 1 tablet twice daily METOCLOPRAMIDE HCL 5 MG ORAL TABLET 957791 METOCLOPRAMIDE HCL Inactive Immunizations Vaccine Administration Date Value [...] Measured Encounters Code Encounter Date Provider Facility CPT-88892 Level 4 New Patient 19:53:31 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 Patient 09:44:43 CDT Audelia Ramon MD [facility] Procedures Code Procedure Name Date Entry Date Standard Description CPT-27266 Bladder Scan 19:53:31 LOG RAFT WORKER CPT-26265 Smoking Cessation counseling 09:45:04 CDT CPT-OV Office Visit 07:50:14 CDT
--- OUTSIDE RECORDS SUMMARY | 2019-04-01 10:28 | XMS REPORT | Clinical Summary ---
Author Author Admin, [facility] Organization [facility] Address Unknown Phone Unavailable Allergies, Adverse Reactions, [...] HOUR 1 tablet twice daily VENLAFAXINE HCL 18907917316 Active Bonita Ramírez LPN Active LOSARTAN POTASSIUM 50 MG ORAL TABLET once daily LOSARTAN POTASSIUM 89601002982 Active Bonita Ramírez WIRE STOCKKEEPER Active CALAN SR 180 MG ORAL TABLET EXTENDED RELEASE once at bedtime VERAPAMIL HCL 81138336808 Active Bonita Ramírez WIRE STOCKKEEPER Active AMBIEN 10 MG ORAL TABLET 1 tablet for sleep ZOLPIDEM TARTRATE 30823422555 Active Bonitaevelyn Ramírez LPN Active METOCLOPRAMIDE HCL 5 MG ORAL TABLET 1 tablet twice daily METOCLOPRAMIDE HCL 88039569851 No Longer Active Bonita Ramírez WIRE STOCKKEEPER Active PROBIOTIC PEARLS ADVANTAGE ORAL CAPSULE PROBIOTIC PRODUCT 43200450391 No Longer Active Bonita Ramírez WIRE STOCKKEEPER Active FISH OIL 1000 MG ORAL CAPSULE DELAYED RELEASE 1 pill by mouth once daily for cholesterol OMEGA-3 FATTY ACIDS 03829475125 No Longer Active Bonita Ramírez LPN Active TRAZODONE HCL 150 MG ORAL TABLET 1 tablet at night TRAZODONE HCL 59658352290 No Longer Active Vonda Cary MD Active CRESTOR 20 MG ORAL TABLET 1 tablet daily ROSUVASTATIN CALCIUM 22911564995 Active Audelia Ramon MD Active LISINOPRIL 5 MG ORAL TABLET 1x daily if needed LISINOPRIL 04612764335 No Longer Active Audelia Ramon MD Active ZOLPIDEM TARTRATE 5 MG ORAL TABLET 1 pill by mouth nightly as needed for sleep ZOLPIDEM TARTRATE 89350501627 No Longer Active Audelia Ramon MD Active SPIRIVA RESPIMAT 2.5 MCG/ACT INHALATION AEROSOL SOLUTION 2 puffs daily TIOTROPIUM BROMIDE MONOHYDRATE 86111247444 Active Audelia Ramon MD Active ZETIA 10 MG ORAL TABLET 1 tablet daily EZETIMIBE 49904117575 Active Audelia Ramon MD Active PANTOPRAZOLE SODIUM 40 MG ORAL TABLET DELAYED RELEASE 1 pill by mouth daily PANTOPRAZOLE SODIUM 35207422369 Active Audelia Ramon MD Active ASPIRIN 81 MG ORAL TABLET CHEWABLE 1 daily ASPIRIN 14049047611 Active Audelia Ramon MD Active ZOLPIDEM TARTRATE 5 MG ORAL TABLET 1 pill by mouth nightly as needed for sleep ZOLPIDEM TARTRATE 5 MG ORAL TABLET 415889 ZOLPIDEM TARTRATE Inactive LISINOPRIL 5 MG ORAL TABLET 1x daily if needed LISINOPRIL 5 MG ORAL TABLET 956169 LISINOPRIL Inactive TRAZODONE HCL 150 MG ORAL TABLET 1 tablet at night TRAZODONE HCL 150 MG ORAL TABLET 885421 TRAZODONE HCL Inactive FISH OIL 1000 MG ORAL CAPSULE DELAYED RELEASE 1 pill by mouth once daily for cholesterol FISH OIL 1000 MG ORAL CAPSULE DELAYED RELEASE OMEGA- 3 FATTY ACIDS Inactive PROBIOTIC PEARLS ADVANTAGE ORAL CAPSULE PROBIOTIC PEARLS ADVANTAGE ORAL CAPSULE PROBIOTIC PRODUCT Inactive METOCLOPRAMIDE HCL 5 MG ORAL TABLET 1 tablet twice daily METOCLOPRAMIDE HCL 5 MG ORAL TABLET 284732 METOCLOPRAMIDE HCL Inactive Immunizations Vaccine Administration Date [...] Measured Encounters Code Encounter Date Provider Facility CPT-85654 Level 4 New Patient 19:53:31 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 Patient 09:44:43 CDT Audelia Ramon MD [facility] Procedures Code Procedure Name Date Entry Date Standard Description CPT-97569 Bladder Scan 19:53:31 STOKER INSTALLATION MECHANIC CPT-84627 Smoking Cessation counseling 09:45:04 CDT CPT-OV Office Visit 07:50:14 CDT
--- OUTSIDE RECORDS SUMMARY | 2019-04-01 10:28 | XMS REPORT | Clinical Summary ---
Author Author Admin, [facility] Organization [facility] Address Unknown Phone Unavailable Allergies, Adverse Reactions, [...] HOUR 1 tablet twice daily VENLAFAXINE HCL 31498917231 Active Bonita Ramírez LPN Active LOSARTAN POTASSIUM 50 MG ORAL TABLET once daily LOSARTAN POTASSIUM 75685935512 Active Bonita Ramírez LPN Active CALAN SR 180 MG ORAL TABLET EXTENDED RELEASE once at bedtime VERAPAMIL HCL 54245499651 Active Bonita Ramírez PROPRIETARY TRADER Active AMBIEN 10 MG ORAL TABLET 1 tablet for sleep ZOLPIDEM TARTRATE 43585099219 Active Bonitaevelyn Ramírez LPN Active METOCLOPRAMIDE HCL 5 MG ORAL TABLET 1 tablet twice daily METOCLOPRAMIDE HCL 04295591346 No Longer Active Bonita Ramírez PROPRIETARY TRADER Active PROBIOTIC PEARLS ADVANTAGE ORAL CAPSULE PROBIOTIC PRODUCT 66548525136 No Longer Active Bonitaevelyn Ramírez LPN Active FISH OIL 1000 MG ORAL CAPSULE DELAYED RELEASE 1 pill by mouth once daily for cholesterol OMEGA-3 FATTY ACIDS 00352545168 No Longer Active Bonita Ramírez LPN Active TRAZODONE HCL 150 MG ORAL TABLET 1 tablet at night TRAZODONE HCL 61870112380 No Longer Active Vonda Cary MD Active CRESTOR 20 MG ORAL TABLET 1 tablet daily ROSUVASTATIN CALCIUM 04026414349 Active Audelia Ramon MD Active LISINOPRIL 5 MG ORAL TABLET 1x daily if needed LISINOPRIL 98940278405 No Longer Active Audelia Ramon MD Active ZOLPIDEM TARTRATE 5 MG ORAL TABLET 1 pill by mouth nightly as needed for sleep ZOLPIDEM TARTRATE 35299825125 No Longer Active Audelia Ramon MD Active SPIRIVA RESPIMAT 2.5 MCG/ACT INHALATION AEROSOL SOLUTION 2 puffs daily TIOTROPIUM BROMIDE MONOHYDRATE 24129273562 Active Audelia Ramon MD Active ZETIA 10 MG ORAL TABLET 1 tablet daily EZETIMIBE 16654319239 Active Audelia Ramon MD Active PANTOPRAZOLE SODIUM 40 MG ORAL TABLET DELAYED RELEASE 1 pill by mouth daily PANTOPRAZOLE SODIUM 12161268134 Active Audelia Ramon MD Active ASPIRIN 81 MG ORAL TABLET CHEWABLE 1 daily ASPIRIN 59146253998 Active Audelia Ramon MD Active ZOLPIDEM TARTRATE 5 MG ORAL TABLET 1 pill by mouth nightly as needed for sleep ZOLPIDEM TARTRATE 5 MG ORAL TABLET 880150 ZOLPIDEM TARTRATE Inactive LISINOPRIL 5 MG ORAL TABLET 1x daily if needed LISINOPRIL 5 MG ORAL TABLET 400178 LISINOPRIL Inactive TRAZODONE HCL 150 MG ORAL TABLET 1 tablet at night TRAZODONE HCL 150 MG ORAL TABLET 521356 TRAZODONE HCL Inactive FISH OIL 1000 MG ORAL CAPSULE DELAYED RELEASE 1 pill by mouth once daily for cholesterol FISH OIL 1000 MG ORAL CAPSULE DELAYED RELEASE OMEGA- 3 FATTY ACIDS Inactive PROBIOTIC PEARLS ADVANTAGE ORAL CAPSULE PROBIOTIC PEARLS ADVANTAGE ORAL CAPSULE PROBIOTIC PRODUCT Inactive METOCLOPRAMIDE HCL 5 MG ORAL TABLET 1 tablet twice daily METOCLOPRAMIDE HCL 5 MG ORAL TABLET 909926 METOCLOPRAMIDE HCL Inactive Immunizations Vaccine Administration Date [...] Measured Encounters Code Encounter Date Provider Facility CPT-21951 Level 4 New Patient 19:53:31 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 Patient 09:44:43 CDT Audelia Ramon MD [facility] Procedures Code Procedure Name Date Entry Date Standard Description CPT-00447 Bladder Scan 19:53:31 BROADCAST CHIEF ENGINEER CPT-47047 Smoking Cessation counseling 09:45:04 CDT CPT-OV Office Visit 07:50:14 CDT
--- OUTSIDE RECORDS SUMMARY | 2019-04-01 10:28 | XMS REPORT | Clinical Summary ---
Author Author Admin, [facility] Organization [facility] Address Unknown Phone Unavailable Allergies, Adverse Reactions, [...] HOUR 1 tablet twice daily VENLAFAXINE HCL 13858127925 Active Bonita Ramírez LPN Active LOSARTAN POTASSIUM 50 MG ORAL TABLET once daily LOSARTAN POTASSIUM 05785006665 Active Bonita Ramírez LPN Active CALAN SR 180 MG ORAL TABLET EXTENDED RELEASE once at bedtime VERAPAMIL HCL 20416117479 Active Bonita Ramírez HUMAN RESOURCE OFFICER Active AMBIEN 10 MG ORAL TABLET 1 tablet for sleep ZOLPIDEM TARTRATE 10451099705 Active Bonitaevelyn Ramírez LPN Active METOCLOPRAMIDE HCL 5 MG ORAL TABLET 1 tablet twice daily METOCLOPRAMIDE HCL 76230481182 No Longer Active Bonita Ramírez LPN Active PROBIOTIC PEARLS ADVANTAGE ORAL CAPSULE PROBIOTIC PRODUCT 73840420232 No Longer Active Bonitaevelyn Ramírez LPN Active FISH OIL 1000 MG ORAL CAPSULE DELAYED RELEASE 1 pill by mouth once daily for cholesterol OMEGA-3 FATTY ACIDS 21531562167 No Longer Active Bonita Ramírez LPN Active TRAZODONE HCL 150 MG ORAL TABLET 1 tablet at night TRAZODONE HCL 43211839935 No Longer Active Vonda Cary MD Active CRESTOR 20 MG ORAL TABLET 1 tablet daily ROSUVASTATIN CALCIUM 47445728046 Active Audelia Ramon MD Active LISINOPRIL 5 MG ORAL TABLET 1x daily if needed LISINOPRIL 95468129862 No Longer Active Audelia Ramon MD Active ZOLPIDEM TARTRATE 5 MG ORAL TABLET 1 pill by mouth nightly as needed for sleep ZOLPIDEM TARTRATE 20218431648 No Longer Active Audelia Ramon MD Active SPIRIVA RESPIMAT 2.5 MCG/ACT INHALATION AEROSOL SOLUTION 2 puffs daily TIOTROPIUM BROMIDE MONOHYDRATE 18106736718 Active Audelia Ramon MD Active ZETIA 10 MG ORAL TABLET 1 tablet daily EZETIMIBE 52787443327 Active Audelia Ramon MD Active PANTOPRAZOLE SODIUM 40 MG ORAL TABLET DELAYED RELEASE 1 pill by mouth daily PANTOPRAZOLE SODIUM 92862936506 Active Audelia Ramon MD Active ASPIRIN 81 MG ORAL TABLET CHEWABLE 1 daily ASPIRIN 49991940437 Active Audelia Ramon MD Active ZOLPIDEM TARTRATE 5 MG ORAL TABLET 1 pill by mouth nightly as needed for sleep ZOLPIDEM TARTRATE 5 MG ORAL TABLET 012459 ZOLPIDEM TARTRATE Inactive LISINOPRIL 5 MG ORAL TABLET 1x daily if needed LISINOPRIL 5 MG ORAL TABLET 510774 LISINOPRIL Inactive TRAZODONE HCL 150 MG ORAL TABLET 1 tablet at night TRAZODONE HCL 150 MG ORAL TABLET 090119 TRAZODONE HCL Inactive FISH OIL 1000 MG ORAL CAPSULE DELAYED RELEASE 1 pill by mouth once daily for cholesterol FISH OIL 1000 MG ORAL CAPSULE DELAYED RELEASE OMEGA- 3 FATTY ACIDS Inactive PROBIOTIC PEARLS ADVANTAGE ORAL CAPSULE PROBIOTIC PEARLS ADVANTAGE ORAL CAPSULE PROBIOTIC PRODUCT Inactive METOCLOPRAMIDE HCL 5 MG ORAL TABLET 1 tablet twice daily METOCLOPRAMIDE HCL 5 MG ORAL TABLET 278448 METOCLOPRAMIDE HCL Inactive Immunizations Vaccine Administration Date [...] Measured Encounters Code Encounter Date Provider Facility CPT-07014 Level 4 New Patient 19:53:31 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 CPT-70231 Level 4 Est. Patient 09:44:43 CDT Audelia Ramon MD [facility] Procedures Code Procedure Name Date Entry Date Standard Description CPT-72159 Bladder Scan 19:53:31 METAL MOULDER'S ASSISTANT CPT-22769 Smoking Cessation counseling 09:45:04 CDT CPT-OV Office Visit 07:50:14 CDT
--- OUTSIDE RECORDS SUMMARY | 2019-04-01 10:29 | XMS REPORT | Clinical Summary ---
Author Author Admin, E Organization [facility] Address Unknown [...] Active Audelia Ramon MD Tobacco use disorder Medication List Medication Instructions Start Date Stop Date Generic Name NDC Status Provider Patient Instruction CRESTOR 20 MG ORAL TABLET 1 tablet daily ROSUVASTATIN CALCIUM 81753350089 Active Audelia Ramon MD Active LISINOPRIL 5 MG ORAL TABS 1x daily if needed LISINOPRIL 45363661965 No Longer Active Audelia Ramon MD Active TRAZODONE HCL 150 MG ORAL TABLET 1 tablet at night TRAZODONE HCL 95384682529 Active Audelia Ramon MD Active ZOLPIDEM TARTRATE 5 MG TABS 1 pill by mouth nightly as needed for sleep ZOLPIDEM TARTRATE 56348496696 No Longer Active Audelia Ramon MD Active SPIRIVA RESPIMAT 2.5 MCG/ACT INH AERS 2 puffs daily TIOTROPIUM BROMIDE MONOHYDRATE 65327481229 Active Audelia Ramon MD Active METOCLOPRAMIDE HCL 5 MG ORAL TABS 1 tablet twice daily METOCLOPRAMIDE HCL 86662483741 Active Audelia Ramon MD Active PROBIOTIC PEARLS ADVANTAGE ORAL CAPS PROBIOTIC PRODUCT 14921232386 Active Audelia Ramon MD Active ZETIA 10 MG ORAL TABS 1 tablet daily EZETIMIBE 19974004346 Active Audelia Ramon MD Active PANTOPRAZOLE SODIUM 40 MG TBEC 1 pill by mouth daily PANTOPRAZOLE SODIUM 52433950336 Active Audelia Ramon MD Active ASPIRIN 81 MG ORAL CHEW 1 daily ASPIRIN 39426185737 Active Audelia Ramon MD Active FISH OIL 1000 MG CPDR 1 pill by mouth once daily for cholesterol OMEGA-3 FATTY ACIDS 14845485194 Active Audelia Ramon MD Active ZOLPIDEM TARTRATE 5 MG TABS 1 pill by mouth nightly as needed for sleep ZOLPIDEM TARTRATE 5 MG TABS 933598 ZOLPIDEM TARTRATE Inactive LISINOPRIL 5 MG ORAL TABS 1x daily if needed LISINOPRIL 5 MG ORAL TABS 391397 LISINOPRIL Inactive Vital Signs Date Name Value Unit Range Description blood pressure, diastolic 87 mm[Hg] BP nogueira blood pressure, systolic 119 mm[Hg] BP sys height E&M 65 [in_us] Bdy height pulse rate E&M 76 /min Heart rate weight E&M 143 [lb_av] Weight Measured Diagnostic Results Date Name Value Unit Range Description Lab Report: UADIP W/MICRO, AUTO - Chemistry protein, total urine random Negative mg/dL Negative RBC, urine, dipstick Negative Negative Lab Report: UADIP W/MICRO, AUTO - Urinalysis urobilinogen, urine, semiquantitative (dipstick) 0.2 E.U./dL Normal leukocyte esterase, urine, by dipstick Negative Negative nitrite, urine, semiquantitative Negative Negative glucose, urine, semiquantitative Negative Negative ketones, urine, by test strip Negative Negative bilirubin, urine Negative Negative urine color Yellow Colorless;Lightyellow;Straw;Yellow appearance, urine Clear Clear specific gravity, urine 1.010 1.000-1.030 pH, urine, semiquantitative 6.0 5.0-8.5 Encounters Code Encounter Date Provider Facility CPT-34533 Level 4 Est. Patient 09:44:43 CDT Audelia Ramon MD [facility] Procedures Code Procedure Name Date Entry Date Standard Description CPT-06316 Smoking Cessation counseling 09:45:04 CDT CPT-OV Office Visit 07:50:14 CDT
--- OUTSIDE RECORDS SUMMARY | 2019-04-01 10:29 | XMS REPORT | Clinical Summary ---
Author Author Admin, STEAVN Organization [facility] Address Unknown Phone Unavailable Allergies, Adverse [...] ORAL TABLET 1 tablet daily ROSUVASTATIN CALCIUM 73101759532 Active Audelia Ramon MD Active LISINOPRIL 5 MG ORAL TABS 1x daily if needed LISINOPRIL 96839032509 No Longer Active Audelia Ramon MD Active TRAZODONE HCL 150 MG ORAL TABLET 1 tablet at night TRAZODONE HCL 75661822910 Active Audelia Ramon MD Active ZOLPIDEM TARTRATE 5 MG TABS 1 pill by mouth nightly as needed for sleep ZOLPIDEM TARTRATE 55138388185 No Longer Active Audelia Ramon MD Active SPIRIVA RESPIMAT 2.5 MCG/ACT INH AERS 2 puffs daily TIOTROPIUM BROMIDE MONOHYDRATE 18784359929 Active Audelia Ramon MD Active METOCLOPRAMIDE HCL 5 MG ORAL TABS 1 tablet twice daily METOCLOPRAMIDE HCL 37405256387 Active Audelia Ramon MD Active PROBIOTIC PEARLS ADVANTAGE ORAL CAPS PROBIOTIC PRODUCT 34893514707 Active Audelia Ramon MD Active ZETIA 10 MG ORAL TABS 1 tablet daily EZETIMIBE 73098524912 Active Audelia Ramon MD Active PANTOPRAZOLE SODIUM 40 MG TBEC 1 pill by mouth daily PANTOPRAZOLE SODIUM 53253514050 Active Audelia Ramon MD Active ASPIRIN 81 MG ORAL CHEW 1 daily ASPIRIN 55594563988 Active Audelia aRmon MD Active FISH OIL 1000 MG CPDR 1 pill by mouth once daily for cholesterol OMEGA-3 FATTY ACIDS 05211150823 Active Audelia Ramon MD Active ZOLPIDEM TARTRATE 5 MG TABS 1 pill by mouth nightly as needed for sleep ZOLPIDEM TARTRATE 5 MG TABS 093202 ZOLPIDEM TARTRATE Inactive LISINOPRIL 5 MG ORAL TABS 1x daily if needed LISINOPRIL 5 MG ORAL TABS 471764 LISINOPRIL Inactive Vital Signs Date Name Value [...] 5.0-8.5 Encounters Code Encounter Date Provider Facility CPT-88576 Level 4 Est. Patient 09:44:43 CDT Audelia Ramon MD [facility] Procedures Code Procedure Name Date Entry Date Standard Description CPT-80057 Smoking Cessation counseling 09:45:04 CDT CPT-OV Office Visit 07:50:14 CDT
--- OUTSIDE RECORDS SUMMARY | 2019-04-01 10:29 | XMS REPORT | Clinical Summary ---
Author Author Admin, [facility] Organization [facility] Address Unknown Phone Unavailable Allergies, Adverse Reactions, Alerts Allergy Name Reaction Description Start Date Severity Status Provider Allergies Unknown Conditions or Problems Problem Name Problem Code Onset Date Status Entry Date Provider Comment Standard Description Annotate Stress incontinence 788.32 Active Audelia Ramon MD Stress incontinence, male Cystocele 618.01 Active Audelia Ramon MD Cystocele, midline Medication List Medication Instructions Start Date Stop Date Generic Name NDC Status Provider Patient Instruction SPIRIVA RESPIMAT 2.5 MCG/ACT INH AERS 2 puffs daily TIOTROPIUM BROMIDE MONOHYDRATE 64079307259 Active Audelia Ramon MD Active METOCLOPRAMIDE HCL 5 MG ORAL TABS 1 tablet twice daily METOCLOPRAMIDE HCL 36419480911 Active Audelia Ramon MD Active PROBIOTIC PEARLS ADVANTAGE ORAL CAPS PROBIOTIC PRODUCT 93650227400 Active Audelia Ramon MD Active ZOLPIDEM TARTRATE 5 MG TABS 1 pill by mouth nightly as needed for sleep ZOLPIDEM TARTRATE 94661129417 Active Audelia Ramon MD Active LISINOPRIL 5 MG ORAL TABS 1x daily if needed LISINOPRIL 63874309500 Active Audelia Ramon MD Active CRESTOR 10 MG TABS 1 tablet by mouth daily at bedtime ROSUVASTATIN CALCIUM 93594592458 Active Audelia Ramon MD Active ZETIA 10 MG ORAL TABS 1 tablet daily EZETIMIBE 40223795343 Active Audelia Ramon MD Active PANTOPRAZOLE SODIUM 40 MG TBEC 1 pill by mouth daily PANTOPRAZOLE SODIUM 71539484857 Active Audelia Ramon MD Active ASPIRIN 81 MG ORAL CHEW 1 daily ASPIRIN 98176899186 Active Audelia Ramon MD Active FISH OIL 1000 MG CPDR 1 pill by mouth once daily for cholesterol OMEGA-3 FATTY ACIDS 55445603430 Active Audelia Ramon MD Active Procedures Code Procedure Name Date Entry Date Standard Description CPT-OV Office Visit 07:50:14 CDT
--- OUTSIDE RECORDS SUMMARY | 2019-04-01 10:29 | XMS REPORT | Clinical Summary ---
Author Author Admin, [facility] Organization [facility] Address Unknown Phone Unavailable Allergies, Adverse Reactions, Alerts Allergy Name Reaction Description Start Date Severity Status Provider No Known Allergies Mattie Bah Conditions or Problems Problem Name Problem Code Onset Date Status Entry Date Provider Comment Standard Description Annotate Stress incontinence 788.32 Active Audelia Ramon MD Stress incontinence, male Cystocele 618.01 Active Audelia Ramon MD Cystocele, midline Medication List Medication Instructions Start Date Stop Date Generic Name NDC Status Provider Patient Instruction SPIRIVA RESPIMAT 2.5 MCG/ACT INH AERS 2 puffs daily TIOTROPIUM BROMIDE MONOHYDRATE 65048130727 Active Audelia Ramon MD Active METOCLOPRAMIDE HCL 5 MG ORAL TABS 1 tablet twice daily METOCLOPRAMIDE HCL 47456518996 Active Audelia Ramon MD Active PROBIOTIC PEARLS ADVANTAGE ORAL CAPS PROBIOTIC PRODUCT 79433340190 Active Audelia Ramon MD Active ZOLPIDEM TARTRATE 5 MG TABS 1 pill by mouth nightly as needed for sleep ZOLPIDEM TARTRATE 32373634050 Active Audelia Ramon MD Active LISINOPRIL 5 MG ORAL TABS 1x daily if needed LISINOPRIL 36510686875 Active Audelia Ramno MD Active CRESTOR 10 MG TABS 1 tablet by mouth daily at bedtime ROSUVASTATIN CALCIUM 61502436133 Active Audelia Ramon MD Active ZETIA 10 MG ORAL TABS 1 tablet daily EZETIMIBE 05163934793 Active Audelia Ramon MD Active PANTOPRAZOLE SODIUM 40 MG TBEC 1 pill by mouth daily PANTOPRAZOLE SODIUM 49223231062 Active Audelia Ramon MD Active ASPIRIN 81 MG ORAL CHEW 1 daily ASPIRIN 28104668573 Active Audelia Ramon MD Active FISH OIL 1000 MG CPDR 1 pill by mouth once daily for cholesterol OMEGA-3 FATTY ACIDS 82163077330 Active Audelia Ramon MD Active Vital Signs Date Name Value Unit Range Description blood pressure, diastolic - 8462-4 80 mm[Hg] BP nogueira blood pressure, systolic - 8480-6 121 mm[Hg] BP sys height E&M - 8302-2 65 [in_us] Bdy height pulse rate E&M - 8867-4 77 /min Heart rate temperature E&M 98.3 [degF] Body temperature weight E&M - 3141-9 141 [lb_av] Weight Measured Procedures Code Procedure Name Date Entry Date Standard Description CPT-OV Office Visit 07:50:14 CDT
--- OUTSIDE RECORDS SUMMARY | 2019-04-01 10:29 | XMS REPORT | Clinical Summary ---
Author Author Admin, STEVAN Organization [facility] Address Unknown Phone Unavailable Allergies, Adverse [...] ORAL TABLET 1 tablet daily ROSUVASTATIN CALCIUM 59086877195 Active Audelia Ramon MD Active LISINOPRIL 5 MG ORAL TABS 1x daily if needed LISINOPRIL 76905986999 No Longer Active Audelia Ramon MD Active TRAZODONE HCL 150 MG ORAL TABLET 1 tablet at night TRAZODONE HCL 57501324282 Active Audelia Ramon MD Active ZOLPIDEM TARTRATE 5 MG TABS 1 pill by mouth nightly as needed for sleep ZOLPIDEM TARTRATE 19877995668 No Longer Active Audelia Ramon MD Active SPIRIVA RESPIMAT 2.5 MCG/ACT INH AERS 2 puffs daily TIOTROPIUM BROMIDE MONOHYDRATE 68308340341 Active Audelia Ramon MD Active METOCLOPRAMIDE HCL 5 MG ORAL TABS 1 tablet twice daily METOCLOPRAMIDE HCL 04550627842 Active Audelia Ramon MD Active PROBIOTIC PEARLS ADVANTAGE ORAL CAPS PROBIOTIC PRODUCT 56232465672 Active Audelia Ramon MD Active ZETIA 10 MG ORAL TABS 1 tablet daily EZETIMIBE 39030899087 Active Audelia Ramon MD Active PANTOPRAZOLE SODIUM 40 MG TBEC 1 pill by mouth daily PANTOPRAZOLE SODIUM 91300294157 Active Audelia Ramon MD Active ASPIRIN 81 MG ORAL CHEW 1 daily ASPIRIN 88649536916 Active Audelia Ramon MD Active FISH OIL 1000 MG CPDR 1 pill by mouth once daily for cholesterol OMEGA-3 FATTY ACIDS 39936287231 Active Audelia Ramon MD Active ZOLPIDEM TARTRATE 5 MG TABS 1 pill by mouth nightly as needed for sleep ZOLPIDEM TARTRATE 5 MG TABS 005073 ZOLPIDEM TARTRATE Inactive LISINOPRIL 5 MG ORAL TABS 1x daily if needed LISINOPRIL 5 MG ORAL TABS 652618 LISINOPRIL Inactive Vital Signs Date Name Value Unit Range Description blood pressure, diastolic 87 mm[Hg] BP nogueira blood pressure, systolic 119 mm[Hg] BP sys height E&M 65 [in_us] Bdy height pulse rate E&M 76 /min Heart rate weight E&M 143 [lb_av] Weight Measured Diagnostic Results Date Name Value Unit Range Description Lab Report: UADIP W/MICRO, AUTO - Chemistry RBC, urine, dipstick Negative Negative protein, total urine random Negative mg/dL Negative Lab Report: UADIP W/MICRO, AUTO - Urinalysis pH, urine, semiquantitative 6.0 5.0-8.5 specific gravity, urine 1.010 1.000-1.030 appearance, urine Clear Clear urine color Yellow Colorless;Lightyellow;Straw;Yellow urobilinogen, urine, semiquantitative (dipstick) 0.2 E.U./dL Normal leukocyte esterase, urine, by dipstick Negative Negative nitrite, urine, semiquantitative Negative Negative glucose, urine, semiquantitative Negative Negative ketones, urine, by test strip Negative Negative bilirubin, urine Negative Negative Encounters Code Encounter Date Provider Facility CPT-85113 Level 4 Est. Patient 09:44:43 CDT Audelia Ramon MD [facility] Procedures Code Procedure Name Date Entry Date Standard Description CPT-51275 Smoking Cessation counseling 09:45:04 CDT CPT-OV Office Visit 07:50:14 CDT
--- OUTSIDE RECORDS SUMMARY | 2019-04-01 10:29 | XMS REPORT | Clinical Summary ---
Author Author Admin, [facility] Organization [facility] Address Unknown Phone Unavailable Allergies, Adverse [...] AERS 2 puffs daily TIOTROPIUM BROMIDE MONOHYDRATE 69611415182 Active Audelia Ramon MD Active METOCLOPRAMIDE HCL 5 MG ORAL TABS 1 tablet twice daily METOCLOPRAMIDE HCL 10453942924 Active Audelia Ramon MD Active PROBIOTIC PEARLS ADVANTAGE ORAL CAPS PROBIOTIC PRODUCT 54125698608 Active Audelia Ramon MD Active ZOLPIDEM TARTRATE 5 MG TABS 1 pill by mouth nightly as needed for sleep ZOLPIDEM TARTRATE 05807907433 Active Audelia Ramon MD Active LISINOPRIL 5 MG ORAL TABS 1x daily if needed LISINOPRIL 39378698947 Active Audelia Ramon MD Active CRESTOR 10 MG TABS 1 tablet by mouth daily at bedtime ROSUVASTATIN CALCIUM 00082247705 Active Audelia Ramon MD Active ZETIA 10 MG ORAL TABS 1 tablet daily EZETIMIBE 32925538464 Active Audelia Ramon MD Active PANTOPRAZOLE SODIUM 40 MG TBEC 1 pill by mouth daily PANTOPRAZOLE SODIUM 53575449629 Active Audelia Ramon MD Active ASPIRIN 81 MG ORAL CHEW 1 daily ASPIRIN 61842927030 Active Audelia Ramon MD Active FISH OIL 1000 MG CPDR 1 pill by mouth once daily for cholesterol OMEGA-3 FATTY ACIDS 69973181403 Active Audelia Ramon MD Active Procedures Code Procedure Name Date Entry Date Standard Description CPT-OV Office Visit 07:50:14 CDT
--- OUTSIDE RECORDS SUMMARY | 2019-04-01 10:29 | XMS REPORT | Clinical Summary ---
Author Author Admin, STEVAN Organization [facility] Address Unknown Phone Unavailable Allergies, Adverse [...] ORAL TABLET 1 tablet daily ROSUVASTATIN CALCIUM 01324524389 Active Audelia Ramon MD Active LISINOPRIL 5 MG ORAL TABLET 1x daily if needed LISINOPRIL 33028264623 No Longer Active Audelia Ramon MD Active TRAZODONE HCL 150 MG ORAL TABLET 1 tablet at night TRAZODONE HCL 84476542756 Active Audelia Ramon MD Active ZOLPIDEM TARTRATE 5 MG ORAL TABLET 1 pill by mouth nightly as needed for sleep ZOLPIDEM TARTRATE 64655966408 No Longer Active Audelia Ramon MD Active SPIRIVA RESPIMAT 2.5 MCG/ACT INHALATION AEROSOL SOLUTION 2 puffs daily TIOTROPIUM BROMIDE MONOHYDRATE 13267829377 Active Audelia Ramon MD Active METOCLOPRAMIDE HCL 5 MG ORAL TABLET 1 tablet twice daily METOCLOPRAMIDE HCL 09033171496 Active Audelia Ramon MD Active PROBIOTIC PEARLS ADVANTAGE ORAL CAPSULE PROBIOTIC PRODUCT 89074512888 Active Audelia Ramon MD Active ZETIA 10 MG ORAL TABLET 1 tablet daily EZETIMIBE 19570380091 Active Audelia Ramon MD Active PANTOPRAZOLE SODIUM 40 MG ORAL TABLET DELAYED RELEASE 1 pill by mouth daily PANTOPRAZOLE SODIUM 73690137648 Active Audelia Ramon MD Active ASPIRIN 81 MG ORAL TABLET CHEWABLE 1 daily ASPIRIN 38632529432 Active Audelia Ramon MD Active FISH OIL 1000 MG ORAL CAPSULE DELAYED RELEASE 1 pill by mouth once daily for cholesterol OMEGA-3 FATTY ACIDS 66631834635 Active Audelia Ramon MD Active ZOLPIDEM TARTRATE 5 MG ORAL TABLET 1 pill by mouth nightly as needed for sleep ZOLPIDEM TARTRATE 5 MG ORAL TABLET 672870 ZOLPIDEM TARTRATE Inactive LISINOPRIL 5 MG ORAL TABLET 1x daily if needed LISINOPRIL 5 MG ORAL TABLET 029819 LISINOPRIL Inactive Vital Signs Date Name Value [...] 5.0-8.5 Encounters Code Encounter Date Provider Facility CPT-28558 Level 4 Est. Patient 09:44:43 CDT Audelia Ramon MD [facility] Procedures Code Procedure Name Date Entry Date Standard Description CPT-61462 Smoking Cessation counseling 09:45:04 CDT CPT-OV Office Visit 07:50:14 CDT
--- OUTSIDE RECORDS SUMMARY | 2019-04-01 10:29 | XMS REPORT | Clinical Summary ---
Author Author Admin, [facility] Organization [facility] Address Unknown Phone Unavailable Allergies, Adverse Reactions, [...] AERS 2 puffs daily TIOTROPIUM BROMIDE MONOHYDRATE 33987335752 Active Audelia Ramon MD Active METOCLOPRAMIDE HCL 5 MG ORAL TABS 1 tablet twice daily METOCLOPRAMIDE HCL 19085669972 Active Audelia Ramon MD Active PROBIOTIC PEARLS ADVANTAGE ORAL CAPS PROBIOTIC PRODUCT 58542275018 Active Audelia Ramon MD Active ZOLPIDEM TARTRATE 5 MG TABS 1 pill by mouth nightly as needed for sleep ZOLPIDEM TARTRATE 86249553551 Active Audelia Ramon MD Active LISINOPRIL 5 MG ORAL TABS 1x daily if needed LISINOPRIL 56888608045 Active Audelia Ramon MD Active CRESTOR 10 MG TABS 1 tablet by mouth daily at bedtime ROSUVASTATIN CALCIUM 66047084315 Active Audelia Ramon MD Active ZETIA 10 MG ORAL TABS 1 tablet daily EZETIMIBE 26747601934 Active Audelia Ramon MD Active PANTOPRAZOLE SODIUM 40 MG TBEC 1 pill by mouth daily PANTOPRAZOLE SODIUM 41507948143 Active Audelia Ramon MD Active ASPIRIN 81 MG ORAL CHEW 1 daily ASPIRIN 26175735843 Active Audelia Ramon MD Active FISH OIL 1000 MG CPDR 1 pill by mouth once daily for cholesterol OMEGA-3 FATTY ACIDS 12373073541 Active Audelia Ramon MD Active Procedures Code Procedure Name Date Entry Date Standard Description CPT-OV Office Visit 07:50:14 CDT
--- OUTSIDE RECORDS SUMMARY | 2019-04-01 10:29 | XMS REPORT | Clinical Summary ---
Author Author Admin, STEVAN Organization [facility] Address Unknown Phone Unavailable Allergies, Adverse [...] ORAL TABLET 1 tablet daily ROSUVASTATIN CALCIUM 37735878801 Active Audelia Ramon MD Active LISINOPRIL 5 MG ORAL TABLET 1x daily if needed LISINOPRIL 02003615990 No Longer Active Audelia Ramon MD Active TRAZODONE HCL 150 MG ORAL TABLET 1 tablet at night TRAZODONE HCL 79183200678 Active Audelia Ramon MD Active ZOLPIDEM TARTRATE 5 MG ORAL TABLET 1 pill by mouth nightly as needed for sleep ZOLPIDEM TARTRATE 32799343066 No Longer Active Audelia Ramon MD Active SPIRIVA RESPIMAT 2.5 MCG/ACT INHALATION AEROSOL SOLUTION 2 puffs daily TIOTROPIUM BROMIDE MONOHYDRATE 61686017131 Active Audelia Ramon MD Active METOCLOPRAMIDE HCL 5 MG ORAL TABLET 1 tablet twice daily METOCLOPRAMIDE HCL 47001900143 Active Audelia Ramon MD Active PROBIOTIC PEARLS ADVANTAGE ORAL CAPSULE PROBIOTIC PRODUCT 41661736818 Active Audelia Ramon MD Active ZETIA 10 MG ORAL TABLET 1 tablet daily EZETIMIBE 23525531585 Active Audelia Ramon MD Active PANTOPRAZOLE SODIUM 40 MG ORAL TABLET DELAYED RELEASE 1 pill by mouth daily PANTOPRAZOLE SODIUM 06609729891 Active Audelia Ramon MD Active ASPIRIN 81 MG ORAL TABLET CHEWABLE 1 daily ASPIRIN 06901647720 Active Audelia Ramon MD Active FISH OIL 1000 MG ORAL CAPSULE DELAYED RELEASE 1 pill by mouth once daily for cholesterol OMEGA-3 FATTY ACIDS 94484982169 Active Audelia Ramon MD Active ZOLPIDEM TARTRATE 5 MG ORAL TABLET 1 pill by mouth nightly as needed for sleep ZOLPIDEM TARTRATE 5 MG ORAL TABLET 516948 ZOLPIDEM TARTRATE Inactive LISINOPRIL 5 MG ORAL TABLET 1x daily if needed LISINOPRIL 5 MG ORAL TABLET 287521 LISINOPRIL Inactive Vital Signs Date Name Value [...] 5.0-8.5 Encounters Code Encounter Date Provider Facility CPT-24065 Level 4 Est. Patient 09:44:43 CDT Audelia Ramon MD [facility] Procedures Code Procedure Name Date Entry Date Standard Description CPT-56212 Smoking Cessation counseling 09:45:04 CDT CPT-OV Office Visit 07:50:14 CDT
--- OUTSIDE RECORDS SUMMARY | 2019-04-01 10:30 | XMS REPORT ---
Author Author Migration, Doctor Organization [facility] Address Unknown Phone Unavailable Care Team Providers Care Survey Rodman Name Role Phone Migration, Doctor Unavailable Unavailable PROBLEMS Type Condition ICD9-CM Code LZW75-EM Code Onset Dates Condition Status SNOMED Code Problem Skin lesion of back L98.9 Active 05939420 Problem Other emphysema J43.8 Active 94317217 Problem Smoking F17.200 Active 03967315 Problem Family history of cardiovascular disease Z82.49 Active 048587737 Problem Borderline abnormal thyroid function test R94.6 Active 366271811 Problem Dyspnea on exertion R06.09 Active 99269564 Problem 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 28327457 Problem Atrial tachycardia I47.1 Active 606573498 Problem Primary insomnia F51.01 Active 3851561 Problem Hot flashes N95.1 Active 920709890 Problem Hypertension I10 Active 41409560 Problem Facial rash R21 Active 229560539 Problem Elevated LFTs R79.89 Active 608218937 Problem Insomnia, unspecified type G47.00 Active 199409326 Problem Gastroparesis K31.84 Active 409360360 Problem Familial hypercholesterolemia E78.0 Active 676252649 Problem Other insomnia G47.09 Active 800910382 Problem Anxiety F41.9 Active 46472125 Problem History of thyroidectomy E89.0 Active 766647060 Problem Thyroiditis E06.9 Active 79311312 Problem Essential hypertension I10 Active 58585495 Problem Chronic obstructive pulmonary disease with acute lower respiratory infection J44.0 Active 728437076 Problem Vitamin D deficiency E55.9 Active 95918441 Problem Hyperlipidemia, unspecified E78.5 Active 68037100 Problem Dyslipidemia E78.5 Active 729716050 Problem Other and unspecified hyperlipidemia E78.5 Active 08227159 Problem Chronic obstructive pulmonary disease, unspecified COPD type J44.9 Active 51580782 Problem Menopausal hot flushes N95.1 Active 776573856 Problem COPD with exacerbation J44.1 Active 762247084 Problem Chronic obstructive pulmonary disease with acute lower respiratory infection J44.0 Active 744243193 ALLERGIES No Information ENCOUNTERS Encounter Location Date Diagnosis [facility] [address] [place] [phone] Feb, [facility] [address] [place] [address] [place] [address] Feb, [facility] [address] [place] [address] Jan, Chronic obstructive pulmonary disease with acute lower respiratory infection J44.0 and Hemoptysis R04.2 [facility] [place] [address] [facility] [id number] [place] [id number] Jan, Hyperlipidemia, unspecified E78.5 [facility] [address] [place] [address] Jan, [facility] [address] [place] [address] Jan, [facility] [address] [place] [address] Jan, Chronic obstructive pulmonary disease with acute lower respiratory infection J44.0 ; Hypertension I10 and Dyslipidemia E78.5 [facility] [address] [place] [address] Dec, [facility] [address] [place] [address] Dec, [facility] [address] [place] [address] Dec, Right lower quadrant pain R10.31 [facility] [address] [place] [address] October, COPD with exacerbation J44.1 and Acute left-sided thoracic back pain M54.6 [facility] [address] [place] [address] Sep, [facility] [address] [place] [address] 16 Sep, 2018 [facility] [address] [place] [address] [place] [address] Sep, [facility] [place] [address] [place] [address] Sep, Smoking F17.200 and Upper respiratory infection with cough and congestion J06.9 [facility] [address] [place] [address] Sep, Infiltrate noted on imaging study R93.89 [facility] [address] [place] [address] Sep, Rib pain R07.81 [facility] [address] [place] [address] Aug, Rib pain R07.81 [facility] [address] [place] [address] Aug, [facility] [address] [place] [address] Aug, [facility] [address] [place] [address] Aug, [facility] [address] [place] [address] Aug, [facility] [address] [place] [address] Aug, Cough R05 [facility] [address] [place] [address] Aug, Right hand pain M79.641 and Atypical pigmented skin lesion L81.9 [facility] [address] [place] [address] Aug, [facility] [address] [place] [address] Aug, De Quervain's disease (radial styloid tenosynovitis) M65.4 and Atypical mole D22.9 [facility] [address] [place] [address] Jul, Cough R05 [facility] [address] [place] [address] Jun, Upper respiratory tract infection, unspecified type J06.9 [facility] [address] [place] [address] Jun, Neck pain on left side M54.2 [facility] [address] [facility] [id number] [place] [address] Jun, [facility] [address] [place] [address] Jun, Neck pain on left side M54.2 and Neck nodule R22.1 [facility] [address] [place] [address] 02 Jun, 2018 Acute gastritis without hemorrhage, unspecified gastritis type K29.[address] [facility] [address] [place] [address] May, Chronic nonintractable headache, unspecified headache type R51 [facility] [address] [place] [address] Apr, Subacute frontal sinusitis J01.10 and Chronic nonintractable headache, unspecified headache type R51 [facility] [address] [place] [address] 02 Apr, [address] [facility] [address] [place] [address] Mar, Encounter for immunization Z23 [address] [address] 30 Feb, 2018 Primary insomnia F51.01 [facility] [address] [place] [address] 28 Feb, 2018 Primary insomnia F51.01 [facility] [address] [place] [address] 07 Feb, 2018 Mucous cyst of nasal sinus J34.1 [facility] [address] [place] [address] Jan, [address] [address] Dec, [address] [address] Dec, Primary insomnia F51.01 ; Anxiety F41.9 and Menopausal hot flushes N95.[address] [address] October, Dry mouth, unspecified R68.2 ; Pharyngitis, unspecified etiology J02.9 and Primary insomnia F51.[address] [address] October, [facility] [address] [place] [address] Sep, [facility] [address] [place] [address] Sep, Hemoptysis R04.2 [facility] [address] [place] [address] Sep, Primary insomnia F51.01 [facility] [place] [address] [place] [address] Sep, Adverse effect of drug, initial encounter T88.7[facility]A [facility] [address] [place] [address] Aug, Adverse effect of drug, initial encounter T88.7XXA [facility] [place] [address] [place] [address] Aug, Primary insomnia F51.01 [facility] [place] [address] [place] [address] Jul, [facility] [address] [address] Jul, Primary insomnia F51.01 [facility] [address] [facility] [id number] [address] Jul, [facility] [address] [address] Jul, Atrial tachycardia I47.1 [facility] [place] [address] [place] [address] Jul, [facility] [address] [address] Jun, Flu-like symptoms R68.89 and Chronic obstructive pulmonary disease, unspecified COPD type J44.9 [facility] [place] [address] [place] [address] Jun, [facility] [address] [address] Jun, [facility] [place] [address] [place] [address] Jun, [address] [address] Jun, Epigastric pain R10.13 ; Diarrhea, unspecified type R19.7 and Non-intractable vomiting without nausea, unspecified vomiting type R11.11 [place] [id number] [address] 15 May, 2017 [facility] [address] [address] May, Chronic nonintractable headache, unspecified headache type R51 [facility] [address] [address] May, [facility] [address] [address] May, Essential hypertension I10 ; Thyroiditis E06.9 and Nonintractable episodic headache, unspecified headache type R51 [address] [address] 18 Feb, 2017 Dyslipidemia E78.5 ; Vitamin D deficiency E55.9 and Atherosclerosis of left carotid artery I65.[address] [address] Jan, [place] [id number] [address] Dec, [address] [address] Dec, Atrial tachycardia I47.1 ; History of thyroidectomy E89.0 ; Primary insomnia F51.01 and Tobacco use Z72.0 [facility] [address] [address] October, Galactorrhea O92.[address] [facility] [address] [address] October, [facility] [address] [address] October, [facility] [address] [address] October, [facility] [place] [address] [place] [address] October, Cough R05 and Other chest pain R07.89 [facility] [address] [place] [address] Sep, Dysuria R30.0 ; Acute cystitis without hematuria N30.00 and Chest tightness or pressure R07.89 [facility] [place] [address] [place] [address] Sep, [facility] [place] [address] [place] [address] Sep, Acute bilateral low back pain without sciatica M54.5 [facility] [address] [place] [address] Aug, Dermatitis L30.9 ; Other insomnia G47.09 and Anxiety F41.9 [facility] [address] [place] [address] Aug, [facility] [address] [address] Aug, Hypertension I10 ; Dyslipidemia E78.5 and Vitamin D deficiency E55.9 [facility] [address] [place] [address] Jun, Anxiety F41.9 and Hypertension I10 [facility] [address] [facility] [id number] [place] [address] Jun, [facility] [place] [address] [place] [address] Jun, Anxiety F41.9 and Hypertension I10 [facility] [place] [address] [place] [address] Jun, [facility] [place] [address] [place] [address] May, [facility] [place] [address] [place] [address] May, Acute upper back pain M54.9 and Hypertension I10 [facility] [place] [address] [place] [address] Apr, [facility] [address] [address] Apr, Mid-back pain, acute M54.9 ; Dyslipidemia E78.5 and Hypertension I10 [facility] [address] [place] [address] Apr, [facility] [address] [address] Apr, [facility] [address] [address] Feb, Familial hypercholesterolemia E78.0 ; Occlusion and stenosis of left carotid artery I65.22 and Vitamin D deficiency E55.9 [facility] [address] [place] [address] Feb, [facility] [address] [address] Feb, Fever, unspecified fever cause R50.9 and Acute non-recurrent maxillary sinusitis J01.[address] [address] Jan, [address] [address] Jan, [address] [address] Jan, Nodule of neck R22.1 and Night sweats R61 [address] [address] Dec, [address] [address] Dec, [address] [address] Nov, [address] [address] Nov, [address] [address] October, Acute upper respiratory infection, unspecified J06.9 ; Other viral agents as the cause of diseases classified elsewhere B97.89 and Calculus of gallbladder without cholecystitis without obstruction K80.[address] [address] Sep, Insomnia, unspecified type G47.00 ; Hypertension I10 and Elevated LFTs R79.[address] [address] Sep, Bleeding after intercourse N93.0 and Dysuria R30.[address] [address] Aug, Dysuria R30.0 and Pyuria N39.[address] [address] Aug, Hypertension I10 ; Insomnia, unspecified type G47.00 and 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 [address] 12 Jul, 2015 Pain of upper extremity M79.603 ; Hypertension I10 and Pure hypercholesterolemia E78.[address] [address] 09 Jul, 2015 Physical exam, pre-employment Z02.1 ; Visit for TB skin test Z11.1 ; Facial rash R21 and 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 [address] 04 Jul, 2015 Other and unspecified hyperlipidemia E78.5 ; Vitamin D deficiency E55.9 and Borderline abnormal thyroid function test R94.[address] [address] Jun, 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 ; Dyslipidemia E78.5 ; Dyspnea on exertion R06.09 ; Family history of cardiovascular disease Z82.49 and Borderline abnormal thyroid function test R94.[address] [address] May, Other emphysema J43.8 ; Smoking F17.200 and Tobacco abuse counseling Z71.[address] [address] May, Cough R05 and Other emphysema J43.[address] [address] Apr, [facility] [address] [place] [address] Apr, Skin lesion of back L98.9 and Skin lesion L98.[address] [address] Apr, Skin lesion of back L98.9 and Hot flashes N95.[address] [address] Mar, Bronchitis J40 [address] [address] Mar, Acute pharyngitis, unspecified J02.9 and Upper respiratory infection with cough and congestion J06.[address] [address] Mar, Bronchitis J40 ; Shortness of breath R06.02 ; Encounter for screening mammogram for breast cancer Z12.31 and Yeast infection B37.[address] [address] Jan, Other and unspecified hyperlipidemia 272.4 and Hypothyroidism 244.[address] [address] Dec, [address] [address] Nov, Diarrhea 787.91 and Nausea 787.[address] [address] October, Other and unspecified hyperlipidemia 272.[address] [address] October, Lumbago 724.2 [facility] [address] [place] [address] [address] Sep, [facility] [address] [place], [place] [id number], [place] [address] Sep, [facility] [address] [place] [address] [address] Aug, [facility] [place] [address] [place] [address] Aug, [facility] [place] [address] [place] [address] Jun, [facility] [address] [place] [id number] [address] Jun, [facility] [address] [place] [address] May, [facility] [address] [place] [id number] [place] [address] May, [facility] [place] [address] [place] [address] May, [facility] [place] [address] [place] [address] Apr, [facility] [address] [place] [address] Apr, [facility] [place] [address] [place] [address] Mar, [facility] [address] [place] [address] Mar, [facility] [place] [address] [place] [address] Mar, [facility] [address], [place] [address] Mar, [facility] [address] [place] [address] Mar, [facility] [place] [address] [place] [address] Mar, [facility] [place] [address] [place] [address] Feb, [facility] [address] [address] Feb, [facility] [place] [address] [place] [address] Jan, [facility] [place] [facility] [address] [facility] [id number] [place] [address] Jan, [facility] [place] [facility] [address] [facility] [id number] [place] [address] Jan, [facility] [place] [facility] [address] [facility] [id number] [place] [address] Jan, [facility] [place] [address] [place] [address] Jan, [facility] [place] [facility] [address] [facility] [id number] [place] [address] Jan, [facility] [place] [address] [place] [address] Dec, [facility] [place] [facility] [address] [place] [id number] [address] Dec, [facility] [place] [facility] [address] [place] [id number], [place] [address] Dec, [facility] [place] [facility] [address] [place] [id number], [place] [address] Dec, [facility] [place] [address] [place] [address] Dec, [facility] [place] [address] [place] [address] Dec, [facility] [place] [facility] [address] [place] [id number], [place] [address] Dec, [facility] [place] [address] [place] [address] October, [facility] [place] [facility] [address] [facility] [id number] [address] October, [facility] [place] [facility] [address] [facility] [id number] [address] October, [facility] [place] [address] [place] [address] Sep, [facility] [place] [facility] [address] [address] Sep, [facility] [address] [place] [address] Sep, [facility] [address], [place] [address] Sep, [facility] [address], [place] [address] Aug, [facility] [address] [place] [address] Aug, [facility] [address], [place] [address] Jun, [facility] [address], [place] [address] Jun, [facility] [place] [address] [place] [address] Jun, [facility] [place] [address] [place] [address] May, [facility] [address], [place] [address] May, [facility] [address], [place] [address] May, [facility] [place] [address] [place] [address] May, [facility] [address] [place] [address] Apr, [facility] [address] [place] [id number], [place] [address] Apr, [facility] [address] [place] [address] Feb, [facility] [place] [address] [place] [address] Feb, IMMUNIZATIONS No Known Immunizations SOCIAL HISTORY Never Assessed REASON FOR VISIT PLAN OF CARE VITAL SIGNS MEDICATIONS Unknown Medications RESULTS No Results PROCEDURES Procedure Date Ordered Result Body Site ASSAY THYROID STIM HORMONE January 10, 2014 LIPID PANEL January 10, 2014 COMPREHEN METABOLIC PANEL January 10, 2014 VENIPUNCT, ROUTINE* January 10, 2014 INSTRUCTIONS MEDICATIONS ADMINISTERED No Known Medications MEDICAL (GENERAL) HISTORY Type Description Date Medical History Nonspecific abnormal results of liver function study Medical History Other nonspecific abnormal finding Medical History Other and unspecified hyperlipidemia Medical History Essential hypertension, benign Medical History Lumbago Medical History Gastroparesis Medical History Nonspecific abnormal results of liver function study Medical History Other and unspecified hyperlipidemia Medical History Essential hypertension, benign Medical History Nonspecific low blood pressure reading Medical History Gastroparesis Surgical History Thyroidectomy partial Surgical History Hysterectomy Surgical History [facility] x2 Surgical History bladder repair 08/2018 Surgical History appendectomy 12/2018 Hospitalization History [facility] x2 Hospitalization History Hysterectomy Hospitalization History Thyroidectomy Hospitalization History surgeries
--- OUTSIDE RECORDS SUMMARY | 2019-04-01 10:30 | XMS REPORT | Clinical Summary ---
Author Author Admin, STEVAN Organization [facility] Address Unknown Phone Unavailable Allergies, Adverse [...] ORAL TABLET 1 tablet daily ROSUVASTATIN CALCIUM 40989403458 Active Audelia Ramon MD Active LISINOPRIL 5 MG ORAL TABLET 1x daily if needed LISINOPRIL 43501334623 No Longer Active Audelia Ramon MD Active TRAZODONE HCL 150 MG ORAL TABLET 1 tablet at night TRAZODONE HCL 20100809347 Active Audelia Ramon MD Active ZOLPIDEM TARTRATE 5 MG ORAL TABLET 1 pill by mouth nightly as needed for sleep ZOLPIDEM TARTRATE 21485799947 No Longer Active Audelia Ramon MD Active SPIRIVA RESPIMAT 2.5 MCG/ACT INHALATION AEROSOL SOLUTION 2 puffs daily TIOTROPIUM BROMIDE MONOHYDRATE 65623189061 Active Audelia Ramon MD Active METOCLOPRAMIDE HCL 5 MG ORAL TABLET 1 tablet twice daily METOCLOPRAMIDE HCL 53320278050 Active Audelia Ramon MD Active PROBIOTIC PEARLS ADVANTAGE ORAL CAPSULE PROBIOTIC PRODUCT 89069764729 Active Audelia Ramon MD Active ZETIA 10 MG ORAL TABLET 1 tablet daily EZETIMIBE 83167029118 Active Audelia Ramon MD Active PANTOPRAZOLE SODIUM 40 MG ORAL TABLET DELAYED RELEASE 1 pill by mouth daily PANTOPRAZOLE SODIUM 33580879924 Active Audelia Ramon MD Active ASPIRIN 81 MG ORAL TABLET CHEWABLE 1 daily ASPIRIN 84824791968 Active Audelia Ramon MD Active FISH OIL 1000 MG ORAL CAPSULE DELAYED RELEASE 1 pill by mouth once daily for cholesterol OMEGA-3 FATTY ACIDS 79736238237 Active Audelia Ramon MD Active ZOLPIDEM TARTRATE 5 MG ORAL TABLET 1 pill by mouth nightly as needed for sleep ZOLPIDEM TARTRATE 5 MG ORAL TABLET 761831 ZOLPIDEM TARTRATE Inactive LISINOPRIL 5 MG ORAL TABLET 1x daily if needed LISINOPRIL 5 MG ORAL TABLET 214499 LISINOPRIL Inactive Vital Signs Date Name Value [...] 5.0-8.5 Encounters Code Encounter Date Provider Facility [id number] Level 4 Est. Patient 09:44:43 CDT Audelia Ramon MD [facility] Procedures Code Procedure Name Date Entry Date Standard Description CPT-01560 Smoking Cessation counseling 09:45:04 CDT CPT-OV Office Visit 07:50:14 CDT
--- OUTSIDE RECORDS SUMMARY | 2019-04-01 10:30 | XMS REPORT | Clinical Summary ---
Author Author Admin, [employer] Organization [facility] Address Unknown Phone Unavailable Allergies, Adverse Reactions, Alerts Allergy Name Reaction Description Start Date Severity Status Provider No Known Allergies Mattie RICCI DYE rash and itching Critical Active uAdelia Ramon MD Conditions or Problems Problem Name [...] ORAL TABLET 1 tablet daily ROSUVASTATIN CALCIUM 41388514820 Active Audelia Ramon MD Active LISINOPRIL 5 MG ORAL TABS 1x daily if needed LISINOPRIL 84257313195 No Longer Active Audelia Ramon MD Active TRAZODONE HCL 150 MG ORAL TABLET 1 tablet at night TRAZODONE HCL 17250825005 Active Audelia Ramon MD Active ZOLPIDEM TARTRATE 5 MG TABS 1 pill by mouth nightly as needed for sleep ZOLPIDEM TARTRATE 23394396038 No Longer Active Audelia Ramon MD Active SPIRIVA RESPIMAT 2.5 MCG/ACT INH AERS 2 puffs daily TIOTROPIUM BROMIDE MONOHYDRATE 42330675787 Active Audelia Ramon MD Active METOCLOPRAMIDE HCL 5 MG ORAL TABS 1 tablet twice daily METOCLOPRAMIDE HCL 36546791427 Active Audelia Ramon MD Active PROBIOTIC PEARLS ADVANTAGE ORAL CAPS PROBIOTIC PRODUCT 54468099597 Active Audelia Ramon MD Active ZETIA 10 MG ORAL TABS 1 tablet daily EZETIMIBE 15974063855 Active Audelia Ramon MD Active PANTOPRAZOLE SODIUM 40 MG TBEC 1 pill by mouth daily PANTOPRAZOLE SODIUM 98096576179 Active Audelia Ramon MD Active ASPIRIN 81 MG ORAL CHEW 1 daily ASPIRIN 92796011509 Active Audelia Ramon MD Active FISH OIL 1000 MG CPDR 1 pill by mouth once daily for cholesterol OMEGA-3 FATTY ACIDS 15379662666 Active Audelia Ramon MD Active ZOLPIDEM TARTRATE 5 MG TABS 1 pill by mouth nightly as needed for sleep ZOLPIDEM TARTRATE 5 MG TABS 835699 ZOLPIDEM TARTRATE Inactive LISINOPRIL 5 MG ORAL TABS 1x daily if needed LISINOPRIL 5 MG ORAL TABS 139029 LISINOPRIL Inactive Diagnostic Results Date Name Value Unit Range [...] 5.0-8.5 Encounters Code Encounter Date Provider Facility [id number] Level 4 Est. Patient 09:44:43 CDT Audelia Ramon MD [facility] Procedures Code Procedure Name Date Entry Date Standard Description CPT-78191 Smoking Cessation counseling 09:45:04 CDT CPT-OV Office Visit 07:50:14 CDT
--- OUTSIDE RECORDS SUMMARY | 2019-04-01 10:30 | XMS REPORT | Clinical Summary ---
Author Author Admin, STEVAN Organization [facility] Address Unknown Phone Unavailable Allergies, Adverse [...] ORAL TABLET 1 tablet daily ROSUVASTATIN CALCIUM 05218764584 Active Audelia Ramon MD Active LISINOPRIL 5 MG ORAL TABLET 1x daily if needed LISINOPRIL 63973817023 No Longer Active Audelia Ramon MD Active TRAZODONE HCL 150 MG ORAL TABLET 1 tablet at night TRAZODONE HCL 74263063905 Active Audelia Ramon MD Active ZOLPIDEM TARTRATE 5 MG ORAL TABLET 1 pill by mouth nightly as needed for sleep ZOLPIDEM TARTRATE 79416218550 No Longer Active Audelia Ramon MD Active SPIRIVA RESPIMAT 2.5 MCG/ACT INHALATION AEROSOL SOLUTION 2 puffs daily TIOTROPIUM BROMIDE MONOHYDRATE 89215945437 Active Audelia Ramon MD Active METOCLOPRAMIDE HCL 5 MG ORAL TABLET 1 tablet twice daily METOCLOPRAMIDE HCL 10814967313 Active Audelia Ramon MD Active PROBIOTIC PEARLS ADVANTAGE ORAL CAPSULE PROBIOTIC PRODUCT 66599983308 Active Audelia Ramon MD Active ZETIA 10 MG ORAL TABLET 1 tablet daily EZETIMIBE 43511192709 Active Audelia Ramon MD Active PANTOPRAZOLE SODIUM 40 MG ORAL TABLET DELAYED RELEASE 1 pill by mouth daily PANTOPRAZOLE SODIUM 66639768916 Active Audelia Ramon MD Active ASPIRIN 81 MG ORAL TABLET CHEWABLE 1 daily ASPIRIN 76590387204 Active Audelia Ramon MD Active FISH OIL 1000 MG ORAL CAPSULE DELAYED RELEASE 1 pill by mouth once daily for cholesterol OMEGA-3 FATTY ACIDS 19636098608 Active Audelia Ramon MD Active ZOLPIDEM TARTRATE 5 MG ORAL TABLET 1 pill by mouth nightly as needed for sleep ZOLPIDEM TARTRATE 5 MG ORAL TABLET 651329 ZOLPIDEM TARTRATE Inactive LISINOPRIL 5 MG ORAL TABLET 1x daily if needed LISINOPRIL 5 MG ORAL TABLET 056425 LISINOPRIL Inactive Vital Signs Date Name Value [...] 5.0-8.5 Encounters Code Encounter Date Provider Facility CPT-[id number] Level 4 Est. Patient 09:44:43 CDT Audelia Ramon MD [facility] Procedures Code Procedure Name Date Entry Date Standard Description CPT-65994 Smoking Cessation counseling 09:45:04 CDT CPT-OV Office Visit 07:50:14 CDT
--- OUTSIDE RECORDS SUMMARY | 2019-04-01 10:30 | XMS REPORT | Clinical Summary ---
Author Author Admin, [employer] Organization [facility] Address Unknown Phone Unavailable Allergies, Adverse Reactions, Alerts Allergy Name Reaction Description Start Date Severity Status Provider No Known Allergies Mattie RICCI DYE rash and itching Critical Active Audelia [...] ORAL TABLET 1 tablet daily ROSUVASTATIN CALCIUM 36731918301 Active Audelia Ramon MD Active LISINOPRIL 5 MG ORAL TABS 1x daily if needed LISINOPRIL 91629654201 No Longer Active Audelia Ramon MD Active TRAZODONE HCL 150 MG ORAL TABLET 1 tablet at night TRAZODONE HCL 07311760378 Active Audelia Ramon MD Active ZOLPIDEM TARTRATE 5 MG TABS 1 pill by mouth nightly as needed for sleep ZOLPIDEM TARTRATE 48962884329 No Longer Active Audelia Ramon MD Active SPIRIVA RESPIMAT 2.5 MCG/ACT INH AERS 2 puffs daily TIOTROPIUM BROMIDE MONOHYDRATE 22874871267 Active Audelia Ramon MD Active METOCLOPRAMIDE HCL 5 MG ORAL TABS 1 tablet twice daily METOCLOPRAMIDE HCL 31503951517 Active Audelia Ramon MD Active PROBIOTIC PEARLS ADVANTAGE ORAL CAPS PROBIOTIC PRODUCT 15380054568 Active Audelia Ramon MD Active ZETIA 10 MG ORAL TABS 1 tablet daily EZETIMIBE 49704021399 Active Audelia Ramon MD Active PANTOPRAZOLE SODIUM 40 MG TBEC 1 pill by mouth daily PANTOPRAZOLE SODIUM 86599250028 Active Audelia Ramon MD Active ASPIRIN 81 MG ORAL CHEW 1 daily ASPIRIN 71330852709 Active Audelia Ramon MD Active FISH OIL 1000 MG CPDR 1 pill by mouth once daily for cholesterol OMEGA-3 FATTY ACIDS 35906622260 Active Audelia Ramon MD Active ZOLPIDEM TARTRATE 5 MG TABS 1 pill by mouth nightly as needed for sleep ZOLPIDEM TARTRATE 5 MG TABS 500079 ZOLPIDEM TARTRATE Inactive LISINOPRIL 5 MG ORAL TABS 1x daily if needed LISINOPRIL 5 MG ORAL TABS 906166 LISINOPRIL Inactive Encounters Code Encounter Date Provider Facility CPT-14504 Level 4 Est. Patient 09:44:43 CDT Audelia Ramon MD [facility] Procedures Code Procedure Name Date Entry Date Standard Description CPT-70946 Smoking Cessation counseling 09:45:04 CDT CPT-OV Office Visit 07:50:14 CDT
--- OUTSIDE RECORDS SUMMARY | 2019-04-01 10:30 | XMS REPORT | Clinical Summary ---
Author Author Admin, [facility] Organization [facility] Address Unknown Phone Unavailable Allergies, [...] ORAL TABLET 1 tablet daily ROSUVASTATIN CALCIUM 57817619212 Active Audelia Ramon MD Active LISINOPRIL 5 MG ORAL TABS 1x daily if needed LISINOPRIL 36034609257 No Longer Active Audelia Ramon MD Active TRAZODONE HCL 150 MG ORAL TABLET 1 tablet at night TRAZODONE HCL 86035845857 Active Audelia Ramon MD Active ZOLPIDEM TARTRATE 5 MG TABS 1 pill by mouth nightly as needed for sleep ZOLPIDEM TARTRATE 16223438711 No Longer Active Audelia Ramon MD Active SPIRIVA RESPIMAT 2.5 MCG/ACT INH AERS 2 puffs daily TIOTROPIUM BROMIDE MONOHYDRATE 58918347903 Active Audelia Ramon MD Active METOCLOPRAMIDE HCL 5 MG ORAL TABS 1 tablet twice daily METOCLOPRAMIDE HCL 91392358342 Active Audelia Ramon MD Active PROBIOTIC PEARLS ADVANTAGE ORAL CAPS PROBIOTIC PRODUCT 19677476981 Active Audelia Ramon MD Active ZETIA 10 MG ORAL TABS 1 tablet daily EZETIMIBE 42916576038 Active Audelia Ramon MD Active PANTOPRAZOLE SODIUM 40 MG TBEC 1 pill by mouth daily PANTOPRAZOLE SODIUM 86597499152 Active Audelia Ramon MD Active ASPIRIN 81 MG ORAL CHEW 1 daily ASPIRIN 21184499248 Active Audelia Ramon MD Active FISH OIL 1000 MG CPDR 1 pill by mouth once daily for cholesterol OMEGA-3 FATTY ACIDS 26240329125 Active Audelia Ramon MD Active ZOLPIDEM TARTRATE 5 MG TABS 1 pill by mouth nightly as needed for sleep ZOLPIDEM TARTRATE 5 MG TABS 117038 ZOLPIDEM TARTRATE Inactive LISINOPRIL 5 MG ORAL TABS 1x daily if needed LISINOPRIL 5 MG ORAL TABS 941377 LISINOPRIL Inactive Diagnostic Results Date Name Value [...] 5.0-8.5 Encounters Code Encounter Date Provider Facility CPT-81042 Level 4 Est. Patient 09:44:43 CDT Audelia Ramon MD [facility] Procedures Code Procedure Name Date Entry Date Standard Description CPT-91704 Smoking Cessation counseling 09:45:04 CDT CPT-OV Office Visit 07:50:14 CDT
--- OUTSIDE RECORDS SUMMARY | 2019-04-01 10:31 | XMS REPORT ---
Author Author Migration, Doctor Organization [facility] Address Unknown Phone Unavailable Care Team Providers Care Hair Designer Name Role Phone Migration, Doctor Unavailable Unavailable PROBLEMS Type Condition ICD9-CM Code JPR96-SZ Code Onset Dates Condition Status SNOMED Code Problem Skin lesion of back L98.9 Active 78826974 Problem Other emphysema J43.8 Active 49683528 Problem Smoking F17.200 Active 03083808 Problem Family history of cardiovascular disease Z82.49 Active 225602445 Problem Borderline abnormal thyroid function test R94.6 Active 326245648 Problem Dyspnea on exertion R06.09 Active 99611457 Problem 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 01434148 Problem Atrial tachycardia I47.1 Active 845752890 Problem Primary insomnia F51.01 Active 3646517 Problem Hot flashes N95.1 Active 555721514 Problem Hypertension I10 Active 90989933 Problem Facial rash R21 Active 371197285 Problem Elevated LFTs R79.89 Active 583653910 Problem Insomnia, unspecified type G47.00 Active 258995435 Problem Gastroparesis K31.84 Active 744377409 Problem Familial hypercholesterolemia E78.0 Active 415298999 Problem Other insomnia G47.09 Active 647143132 Problem Anxiety F41.9 Active 56072713 Problem History of thyroidectomy E89.0 Active 934663765 Problem Thyroiditis E06.9 Active 74195000 Problem Essential hypertension I10 Active 19904851 Problem Chronic obstructive pulmonary disease with acute lower respiratory infection J44.0 Active 067454427 Problem Vitamin D deficiency E55.9 Active 68361987 Problem Hyperlipidemia, unspecified E78.5 Active 32572003 Problem Dyslipidemia E78.5 Active 243323275 Problem Other and unspecified hyperlipidemia E78.5 Active 72748904 Problem Chronic obstructive pulmonary disease, unspecified COPD type J44.9 Active 92159338 Problem Menopausal hot flushes N95.1 Active 178775184 Problem COPD with exacerbation J44.1 Active 030763047 Problem Chronic obstructive pulmonary disease with acute lower respiratory infection J44.0 Active [id number] ALLERGIES No Information ENCOUNTERS Encounter Location Date Diagnosis [facility] [address] [place] [address] Feb, [facility] [address] [place] [address] Feb, [facility] [address] [place] [address] Jan, Chronic obstructive pulmonary disease with acute lower respiratory infection J44.0 and Hemoptysis R04.2 [facility] [place] [address] [facility] [id number] [place] [id number] Jan, Hyperlipidemia, unspecified E78.5 [facility] [address] [place] [address] Jan, [facility] [address] [place] [address] Jan, [facility] [address] [place] [address] Jan, Chronic obstructive pulmonary disease with acute lower respiratory infection J44.0 ; Hypertension I10 and Dyslipidemia E78.5 [facility] [address] [place] [address] Dec, [facility] [address] [place] [address] Dec, [facility] [address] [place] [address] Dec, Right lower quadrant pain R10.31 [facility] [address] [place] [address] October, COPD with exacerbation J44.1 and Acute left-sided thoracic back pain M54.6 [facility] [address] [place] [address] Sep, [facility] [address] [place] [address] 16 Sep, 2018 [facility] [address] [place] [address] [place] [address] Sep, [facility] [address] [place] [address] Sep, Smoking F17.200 and Upper respiratory infection with cough and congestion J06.9 [facility] [address] [place] [address] Sep, Infiltrate noted on imaging study R93.89 [facility] [address] [place] [address] Sep, Rib pain R07.81 [facility] [address] [place] [address] Aug, Rib pain R07.81 [facility] [address] [place] [address] Aug, [facility] [address] [place] [address] Aug, [facility] [address] [place] [address] Aug, [facility] [address] [place] [address] Aug, [facility] [address] [place] [address] Aug, Cough R[address] [facility] [address] [place] [address] Aug, Right hand pain M79.641 and Atypical pigmented skin lesion L81.[address] [facility] [address] [place] [address] Aug, [facility] [address] [place] [address] Aug, De Quervain's disease (radial styloid tenosynovitis) M65.4 and Atypical mole D22.[address] [facility] [address] [place] [address] Jul, Cough R[address] [facility] [address] [place] [address] Jun, Upper respiratory tract infection, unspecified type J06.9 [facility] [address] [place] [address] Jun, Neck pain on left side M54.2 [facility] [address] [facility] [id number] [place] [address] Jun, [facility] [address] [place] [address] Jun, Neck pain on left side M54.2 and Neck nodule R22.1 [facility] [address] [place] [address] 02 Jun, 2018 Acute gastritis without hemorrhage, unspecified gastritis type K29.[address] [facility] [address] [place] [address] May, Chronic nonintractable headache, unspecified headache type R51 [facility] [address] [place] [address] Apr, Subacute frontal sinusitis J01.10 and Chronic nonintractable headache, unspecified headache type R51 [facility] [address] [place] [address] 02 Apr, [address] [facility] [address] [place] [address] Mar, Encounter for immunization Z23 [address] [address] 30 Feb, 2018 Primary insomnia F51.01 [facility] [address] [place] [address] 28 Feb, 2018 Primary insomnia F51.01 [facility] [address] [place] [address] 07 Feb, 2018 Mucous cyst of nasal sinus J34.1 [facility] [address] [place] [address] Jan, [address] [address] Dec, [address] [address] Dec, Primary insomnia F51.01 ; Anxiety F41.9 and Menopausal hot flushes N95.[address] [address] October, Dry mouth, unspecified R68.2 ; Pharyngitis, unspecified etiology J02.9 and Primary insomnia F51.[address] [address] October, [facility] [address] [place] [address] Sep, [facility] [address] [place] [address] Sep, Hemoptysis R04.2 [facility] [address] [place] [address] Sep, Primary insomnia F51.01 [facility] [place] [address] [place] [address] Sep, Adverse effect of drug, initial encounter T88.7XXA [facility] [address] [place] [address] Aug, Adverse effect of drug, initial encounter T88.7XXA [facility] [address] [place] [address] Aug, Primary insomnia F51.01 [facility] [address] [place] [address] Jul, [facility] [address] [address] Jul, Primary insomnia F51.01 [facility] [address] [facility] [id number] [address] Jul, [facility] [address] [address] Jul, Atrial tachycardia I47.1 [facility] [address] [place] [address] Jul, [facility] [address] [address] Jun, Flu-like symptoms R68.89 and Chronic obstructive pulmonary disease, unspecified COPD type J44.9 [facility] [address] [place] [address] Jun, [facility] [address] [address] Jun, [facility] [address] [place] [address] Jun, [address] [address] Jun, Epigastric pain R10.13 ; Diarrhea, unspecified type R19.7 and Non-intractable vomiting without nausea, unspecified vomiting type R11.11 [id number] [address] 15 May, 2017 [facility] [address] [address] May, Chronic nonintractable headache, unspecified headache type R51 [facility] [address] [address] May, [facility] [address] [address] May, Essential hypertension I10 ; Thyroiditis E06.9 and Nonintractable episodic headache, unspecified headache type R51 [address] [address] 18 Feb, 2017 Dyslipidemia E78.5 ; Vitamin D deficiency E55.9 and Atherosclerosis of left carotid artery I65.[address] [address] Jan, [id number] [address] Dec, [address] [address] Dec, Atrial tachycardia I47.1 ; History of thyroidectomy E89.0 ; Primary insomnia F51.01 and Tobacco use Z72.0 [facility] [address] [address] October, Galactorrhea O92.[address] [facility] [address] [address] October, [facility] [address] [address] October, [facility] [address] [address] October, [facility] [place] [address] [place] [address] October, Cough R05 and Other chest pain R07.89 [facility] [address] [place] [address] Sep, Dysuria R30.0 ; Acute cystitis without hematuria N30.00 and Chest tightness or pressure R07.89 [facility] [address] [place] [address] Sep, [facility] [address] [place] [address] Sep, Acute bilateral low back pain without sciatica M54.5 [facility] [address] [place] [address] Aug, Dermatitis L30.9 ; Other insomnia G47.09 and Anxiety F41.9 [facility] [address] [place] [address] Aug, [facility] [address] [address] Aug, Hypertension I10 ; Dyslipidemia E78.5 and Vitamin D deficiency E55.9 [facility] [address] [place] [address] Jun, Anxiety F41.9 and Hypertension I10 [facility] [address] [facility] [id number] [place] [address] Jun, [facility] [address] [place] [address] Jun, Anxiety F41.9 and Hypertension I10 [facility] [address] [place] [address] Jun, [facility] [address] [place] [address] May, [facility] [address] [place] [address] May, Acute upper back pain M54.9 and Hypertension I10 [facility] [address] [place] [address] Apr, [facility] [address] [address] Apr, Mid-back pain, acute M54.9 ; Dyslipidemia E78.5 and Hypertension I10 [facility] [address] [place] [address] Apr, [facility] [address] [address] Apr, [facility] [address] [address] Feb, Familial hypercholesterolemia E78.0 ; Occlusion and stenosis of left carotid artery I65.22 and Vitamin D deficiency E55.9 [facility] [address] [place] [address] Feb, [facility] [address] [address] Feb, Fever, unspecified fever cause R50.9 and Acute non-recurrent maxillary sinusitis J01.[address] [address] Jan, [address] [address] Jan, [address] [address] Jan, Nodule of neck R22.1 and Night sweats R[address] [address] Dec, [address] [address] Dec, [address] [address] Nov, [address] [address] Nov, [address] [address] October, Acute upper respiratory infection, unspecified J06.9 ; Other viral agents as the cause of diseases classified elsewhere B97.89 and Calculus of gallbladder without cholecystitis without obstruction K80.[address] [address] Sep, Insomnia, unspecified type G47.00 ; Hypertension I10 and Elevated LFTs R79.[address] [address] Sep, Bleeding after intercourse N93.0 and Dysuria R30.[address] [address] Aug, Dysuria R30.0 and Pyuria N39.[address] [address] Aug, Hypertension I10 ; Insomnia, unspecified type G47.00 and 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 [address] 12 Jul, 2015 Pain of upper extremity M79.603 ; Hypertension I10 and Pure hypercholesterolemia E78.[address] [address] 09 Jul, 2015 Physical exam, pre-employment Z02.1 ; Visit for TB skin test Z11.1 ; Facial rash R21 and 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 [address] 04 Jul, 2015 Other and unspecified hyperlipidemia E78.5 ; Vitamin D deficiency E55.9 and Borderline abnormal thyroid function test R94.[address] [address] Jun, 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 ; Dyslipidemia E78.5 ; Dyspnea on exertion R06.09 ; Family history of cardiovascular disease Z82.49 and Borderline abnormal thyroid function test R94.[address] [address] May, Other emphysema J43.8 ; Smoking F17.200 and Tobacco abuse counseling Z71.[address] [address] May, Cough R05 and Other emphysema J43.[address] [address] Apr, [facility] [address] [place] [address] Apr, Skin lesion of back L98.9 and Skin lesion L98.[address] [address] Apr, Skin lesion of back L98.9 and Hot flashes N95.[address] [address] Mar, Bronchitis J40 [address] [address] Mar, Acute pharyngitis, unspecified J02.9 and Upper respiratory infection with cough and congestion J06.[address] [address] Mar, Bronchitis J40 ; Shortness of breath R06.02 ; Encounter for screening mammogram for breast cancer Z12.31 and Yeast infection B37.[address] [address] Jan, Other and unspecified hyperlipidemia 272.4 and Hypothyroidism 244.[address] [address] Dec, [address] [address] Nov, Diarrhea 787.91 and Nausea 787.[address] [address] October, Other and unspecified hyperlipidemia 272.[address] [address] October, Lumbago 724.2 [facility] [address] [place], [place] [address], [place] [address] Sep, [facility] [address] [id number], [place] [address] Sep, [facility] [address] [place], [place] [address] [address] Aug, [facility] [place] [address] [place] [address] Aug, [facility] [place] [address] [place] [address] Jun, [facility] [address] [id number] [address] Jun, [facility] [address] [place] [address] May, [facility] [address] [place] [id number] [place] [address] May, [facility] [place] [address] [place] [address] May, [facility] [place] [address] [place] [address] Apr, [facility] [address] [place] [address] Apr, [facility] [place] [address] [place] [address] Mar, [facility] [address] [place] [address] Mar, [facility] [place] [address] [place] [address] Mar, [facility] [address], [place] [address] Mar, [facility] [address] [place] [address] Mar, [facility] [place] [address] [place] [address] Mar, [facility] [place] [address] [place] [address] Feb, [facility] [address], [place] [address] Feb, [facility] [place] [address] [place] [address] Jan, [facility] [place] [facility] [address] [facility] [id number] [place] [address] Jan, [facility] [place] [facility] [address] [facility] [id number] [place] [address] Jan, [facility] [place] [facility] [address] [facility] [id number] [place] [address] Jan, [facility] [place] [address] [place] [address] Jan, [facility] [place] [facility] [address] [facility] [id number] [place] [address] Jan, [facility] [place] [address] [place] [address] Dec, [facility] [place] [facility] [address] [id number], [place] [address] Dec, [facility] [place] [facility] [address] [place] [id number], [place] [address] Dec, [facility] [place] [facility] [address] [id number], [place] [address] Dec, [facility] [place] [address] [place] [address] Dec, [facility] [place] [address] [place] [address] Dec, [facility] [place] [facility] [address] [place] [id number], [place] [address] Dec, [facility] [place] [address] [place] [address] October, [facility] [place] [facility] [address] [facility] [id number], [place] [address] October, [facility] [place] [facility] [address] [facility] [id number], [place] [address] October, [facility] [place] [address] [place] [address] Sep, [facility] [place] [facility] [address], [place] [address] Sep, [facility] [address] [place] [address] Sep, [facility] [address], [place] [address] Sep, [facility] [address], [place] [address] Aug, [facility] [place] [address] [place] [address] Aug, [facility] [address], [place] [address] Jun, [facility] [address], [place] [address] Jun, [facility] [address] [place] [address] Jun, [facility] [address] [place] [address] May, [facility] [address], [place] [address] May, [facility] [address], [place] [address] May, [facility] [address] [place] [address] May, [facility] [address] [place] [address] Apr, [facility] [address] [place] [id number], [place] [address] Apr, [facility] [address] [place] [address] Feb, [facility] [place] [address] [place] [address] Feb, IMMUNIZATIONS No Known Immunizations SOCIAL HISTORY Never Assessed REASON FOR VISIT PLAN OF CARE VITAL SIGNS MEDICATIONS Unknown Medications RESULTS No Results PROCEDURES No Known procedures INSTRUCTIONS MEDICATIONS ADMINISTERED No Known Medications MEDICAL [...]
--- OUTSIDE RECORDS SUMMARY | 2019-04-01 10:31 | XMS REPORT ---
Author Author ASHELY OTT Organization 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 29217463 Problem Atrial tachycardia I47.1 Active 287438524 Problem Primary insomnia F51.01 Active 2748573 Problem Hot flashes N95.1 Active 943982556 Problem Hypertension I10 Active 18216721 Problem Facial rash R21 Active 781736107 Problem Elevated LFTs R79.89 Active 808160773 Problem Insomnia, unspecified type G47.00 Active 701592772 Problem Gastroparesis K31.84 Active 429588146 Problem Familial hypercholesterolemia E78.0 Active 976265503 Problem Other insomnia G47.09 Active 202887134 Problem Anxiety F41.9 Active 64533978 Problem History of thyroidectomy E89.0 Active 615349071 Problem Thyroiditis E06.9 Active 25072006 Problem Essential hypertension I10 Active 59888264 Problem Chronic obstructive pulmonary disease with acute lower respiratory infection J44.0 Active 473690841 Problem Vitamin D deficiency E55.9 Active 88770265 Problem Hyperlipidemia, unspecified E78.5 Active 89032407 Problem Dyslipidemia E78.5 Active 240316163 Problem Other and unspecified hyperlipidemia E78.5 Active 05775152 Problem Chronic obstructive pulmonary disease, unspecified COPD type J44.9 Active 69388763 Problem Menopausal hot flushes N95.1 Active 573076244 Problem COPD with exacerbation J44.1 Active 140842861 Problem Chronic obstructive pulmonary disease with acute lower respiratory infection J44.0 Active [id number] ALLERGIES No Information ENCOUNTERS Encounter Location Date Diagnosis [facility] [address] [place] [address] Feb, [facility] [address] [place] [address] Jan, Chronic obstructive pulmonary disease with acute lower respiratory infection J44.0 and Hemoptysis R04.2 [facility] [place] [address] [facility] [id number] [place] [id number] Jan, Hyperlipidemia, unspecified E78.5 [facility] [address] [place] [address] Jan, [facility] [address] [place] [address] Jan, [facility] [address] [place] [address] Jan, Chronic obstructive pulmonary disease with acute lower respiratory infection J44.0 ; Hypertension I10 and Dyslipidemia E78.5 [facility] [address] [place] [address] Dec, [facility] [address] [place] [address] Dec, [facility] [address] [place] [address] Dec, Right lower quadrant pain R10.31 [facility] [address] [place] [address] October, COPD with exacerbation J44.1 and Acute left-sided thoracic back pain M54.6 [facility] [address] [place] [address] Sep, [facility] [address] [place] [address] Sep, [facility] [address] [place] [address] Sep, [facility] [address] [place] [address] Sep, Smoking F17.200 and Upper respiratory infection with cough and congestion J06.9 [facility] [address] [place] [address] Sep, Infiltrate noted on imaging study R93.89 [facility] [address] [place] [address] Sep, Rib pain R07.81 [facility] [address] [place] [address] Aug, Rib pain R07.81 [facility] [address] [place] [address] Aug, [facility] [address] [place] [address] Aug, [facility] [address] [place] [address] Aug, [facility] [address] [place] [address] Aug, [facility] [address] [place] [address] Aug, Cough R05 [facility] [address] [place] [address] Aug, Right hand pain M79.641 and Atypical pigmented skin lesion L81.9 [facility] [address] [place] [address] Aug, [facility] [address] [place] [address] Aug, De Quervain's disease (radial styloid tenosynovitis) M65.4 and Atypical mole D22.9 [facility] [address] [place] [address] Jul, Cough R05 [facility] [address] [place] [address] Jun, Upper respiratory tract infection, unspecified type J06.9 [facility] [address] [place] [address] Jun, Neck pain on left side M54.2 [facility] [address] [facility] [id number] [place] [address] Jun, [facility] [address] [address] Jun, Neck pain on left side M54.2 and Neck nodule R22.1 [facility] [address] [place] [address] 02 Jun, 2018 Acute gastritis without hemorrhage, unspecified gastritis type K29.[address] [facility] [address] [place] [address] May, Chronic nonintractable headache, unspecified headache type R51 [facility] [address] [place] [address] Apr, Subacute frontal sinusitis J01.10 and Chronic nonintractable headache, unspecified headache type R51 [facility] [address] [place] [address] 02 Apr, 2018 [facility] [address] [place] [address] Mar, Encounter for immunization Z23 [address] [address] 30 Feb, 2018 Primary insomnia F51.01 [facility] [address] [place] [address] 28 Feb, 2018 Primary insomnia F51.01 [facility] [address] [place] [address] 07 Feb, 2018 Mucous cyst of nasal sinus J34.1 [facility] [address] [place] [address] Jan, [address] [address] Dec, [address] [address] Dec, Primary insomnia F51.01 ; Anxiety F41.9 and Menopausal hot flushes N95.[address] [address] October, Dry mouth, unspecified R68.2 ; Pharyngitis, unspecified etiology J02.9 and Primary insomnia F51.[address] [address] October, [facility] [place] [address] [place] [address] Sep, [facility] [place] [address] [place] [address] Sep, Hemoptysis R04.2 [facility] [address] [place] [address] Sep, Primary insomnia F51.01 [facility] [place] [address] [place] [address] Sep, Adverse effect of drug, initial encounter T88.7XXA [facility] [address] [place] [address] Aug, Adverse effect of drug, initial encounter T88.7XXA [facility] [place] [address] [place] [address] Aug, Primary insomnia F51.01 [facility] [place] [address] [place] [address] Jul, [facility] [address] [address] Jul, Primary insomnia F51.01 [facility] [address] [facility] [id number] [address] Jul, [facility] [address] [address] Jul, Atrial tachycardia I47.1 [facility] [place] [address] [place] [address] Jul, [facility] [address] [address] Jun, Flu-like symptoms R68.89 and Chronic obstructive pulmonary disease, unspecified COPD type J44.9 [facility] [place] [address] [place] [address] Jun, [facility] [place] [address] [place] [address] Jun, [facility] [place] [address] [place] [address] Jun, [address] [address] Jun, Epigastric pain R10.13 ; Diarrhea, unspecified type R19.7 and Non-intractable vomiting without nausea, unspecified vomiting type R11.11 [place] [id number] [address] 15 May, 2017 [facility] [address] [address] May, Chronic nonintractable headache, unspecified headache type R51 [facility] [address] [address] May, [facility] [address] [address] May, Essential hypertension I10 ; Thyroiditis E06.9 and Nonintractable episodic headache, unspecified headache type R51 [address] [address] Feb, Dyslipidemia E78.5 ; Vitamin D deficiency E55.9 and Atherosclerosis of left carotid artery I65.[address] [address] Jan, [place] [id number] [address] Dec, [address] [address] Dec, Atrial tachycardia I47.1 ; History of thyroidectomy E89.0 ; Primary insomnia F51.01 and Tobacco use Z72.0 [facility] [address] [address] October, Galactorrhea O92.[address] [facility] [address] [address] October, [facility] [address] [address] October, [facility] [address] [address] October, [facility] [address] [address] October, Cough R05 and Other chest pain R07.[address] [facility] [address] [place] [address] Sep, Dysuria R30.0 ; Acute cystitis without hematuria N30.00 and Chest tightness or pressure R07.[address] [facility] [address] [place] [address] Sep, [facility] [place] [address] [place] [address] Sep, Acute bilateral low back pain without sciatica M54.[address] [facility] [address] [place] [address] Aug, Dermatitis L30.9 ; Other insomnia G47.09 and Anxiety F41.[address] [facility] [address] [place] [address] Aug, [facility] [address] [address] Aug, Hypertension I10 ; Dyslipidemia E78.5 and Vitamin D deficiency E55.[address] [facility] [address] [place] [address] Jun, Anxiety F41.9 and Hypertension I10 [facility] [address] [facility] [id number] [place] [address] Jun, [facility] [address] [place] [address] Jun, Anxiety F41.9 and Hypertension I10 [facility] [place] [address] [place] [address] Jun, [facility] [place] [address] [place] [address] May, [facility] [place] [address] [place] [address] May, Acute upper back pain M54.9 and Hypertension I10 [facility] [place] [address] [place] [address] Apr, [facility] [address] [place] [address] Apr, Mid-back pain, acute M54.9 ; Dyslipidemia E78.5 and Hypertension I10 [facility] [address] [address] Apr, [facility] [address] [address] Apr, [facility] [address] [address] Feb, Familial hypercholesterolemia E78.0 ; Occlusion and stenosis of left carotid artery I65.22 and Vitamin D deficiency E55.[address] [address] Feb, [facility] [address] [address] Feb, Fever, unspecified fever cause R50.9 and Acute non-recurrent maxillary sinusitis J01.00 [facility] [address] [address] Jan, [address] [address] Jan, [address] [address] Jan, Nodule of neck R22.1 and Night sweats R61 [address] [address] Dec, [address] [address] Dec, [address] [address] Nov, [address] [address] Nov, [address] [address] October, Acute upper respiratory infection, unspecified J06.9 ; Other viral agents as the cause of diseases classified elsewhere B97.89 and Calculus of gallbladder without cholecystitis without obstruction K80.[address] [address] Sep, Insomnia, unspecified type G47.00 ; Hypertension I10 and Elevated LFTs R79.[address] [address] Sep, Bleeding after intercourse N93.0 and Dysuria R30.[address] [address] Aug, Dysuria R30.0 and Pyuria N39.[address] [address] Aug, Hypertension I10 ; Insomnia, unspecified type G47.00 and 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 [address] 12 Jul, 2015 Pain of upper extremity M79.603 ; Hypertension I10 and Pure hypercholesterolemia E78.[address] [address] 09 Jul, 2015 Physical exam, pre-employment Z02.1 ; Visit for TB skin test Z11.1 ; Facial rash R21 and 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 [address] 04 Jul, 2015 Other and unspecified hyperlipidemia E78.5 ; Vitamin D deficiency E55.9 and Borderline abnormal thyroid function test R94.[address] [address] Jun, 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 ; Dyslipidemia E78.5 ; Dyspnea on exertion R06.09 ; Family history of cardiovascular disease Z82.49 and Borderline abnormal thyroid function test R94.[address] [address] May, Other emphysema J43.8 ; Smoking F17.200 and Tobacco abuse counseling Z71.[address] [address] May, Cough R05 and Other emphysema J43.[address] [address] Apr, [address] [address] Apr, Skin lesion of back L98.9 and Skin lesion L98.[address] [address] Apr, Skin lesion of back L98.9 and Hot flashes N95.[address] [address] Mar, Bronchitis J40 [address] [address] Mar, Acute pharyngitis, unspecified J02.9 and Upper respiratory infection with cough and congestion J06.[address] [address] Mar, Bronchitis J40 ; Shortness of breath R06.02 ; Encounter for screening mammogram for breast cancer Z12.31 and Yeast infection B37.[address] [address] Jan, Other and unspecified hyperlipidemia 272.4 and Hypothyroidism 244.[address] [address] Dec, [address] [address] Nov, Diarrhea 787.91 and Nausea 787.[address] [address] October, Other and unspecified hyperlipidemia 272.[address] [address] October, Lumbago 724.2 [facility] [address] [place] [id number] [address] 14 Sep, 2014 [facility] [address] [place] [id number] [address] 13 Sep, 2014 [facility] [address] [place], [place] [id number] [address] Aug, [facility] [place] [address] [place] [address] Aug, [facility] [place] [address] [place] [address] Jun, [facility] [address] [address] Jun, [facility] [id number] [place] [address] May, [facility] [id number] [place] [address] May, [facility] [place] [address] [place] [address] May, [facility] [place] [address] [place] [address] Apr, [facility] [id number] [place] [address] Apr, [facility] [place] [address] [place] [address] Mar, [facility] [id number] [place] [address] Mar, [facility] [place] [address] [place] [address] Mar, [facility] [id number] [address] Mar, [facility] [id number] [place] [address] Mar, [facility] [place] [address] [place] [address] Mar, [facility] [place] [address] [place] [address] Feb, [facility] [address] [id number] [address] Feb, [facility] [place] [address] [place] [address] Jan, [facility] [place] [facility] [address] [facility] [id number] [place] [address] Jan, [facility] [place] [facility] [address] [facility] [id number] [place] [address] Jan, [facility] [place] [facility] [address] [place] [id number] [place] [address] Jan, [facility] [place] [address] [place] [address] Jan, [facility] [place] [facility] [address] [facility] [id number] [place] [address] Jan, [facility] [place] [address] [place] [address] Dec, [facility] [place] [facility] [address] [id number] [address] Dec, [facility] [place] [facility] [address] [place] [id number] [address] Dec, [facility] [place] [facility] [address] [place] [id number] [address] Dec, [facility] [place] [address] [place] [address] Dec, [facility] [place] [address] [place] [address] Dec, [facility] [place] [facility] [address] [place] [id number] [address] Dec, [facility] [place] [address] [place] [address] October, [facility] [place] [facility] [address] [facility] [id number] [address] October, [facility] [place] [facility] [address] [facility] [id number] [address] October, [facility] [place] [address] [place] [address] Sep, [facility] [place] [facility] [address] [address] 17 Sep, 2013 [facility] [address] [place] [address] Sep, [facility] [address] [address] Sep, [facility] [id number] [address] Aug, [facility] [place] [address] [place] [address] Aug, [facility] [id number] [address] Jun, [facility] [id number] [address] Jun, [facility] [address] [place] [address] Jun, [facility] [place] [address] [place] [address] May, [facility] [id number] [address] May, [facility] [id number] [address] May, [facility] [address] [place] [address] May, [facility] [address] [place] [address] Apr, [facility] [address] [place] [id number] [address] Apr, [facility] [id number] [place] [address] Feb, [facility] [place] [address] [place] [address] Feb, IMMUNIZATIONS No Known Immunizations SOCIAL HISTORY [...]
--- OUTSIDE RECORDS SUMMARY | 2019-04-01 10:32 | XMS REPORT ---
Author Author FAB MELENDREZ Organization [facility] [address] [place] [address] Care Team Providers Care Wooden Fence Erector Name Role Phone FAB MELENDREZ Unavailable PROBLEMS Type Condition ICD9-CM Code ARH79-KA Code Onset Dates Condition Status SNOMED Code Problem Skin lesion of back L98.9 Active 89962261 Problem Other emphysema J43.8 Active 31653082 Problem Smoking F17.200 Active 83709134 Problem Family history of cardiovascular disease Z82.49 Active 273954272 Problem Borderline abnormal thyroid function test R94.6 Active 232404021 Problem Dyspnea on exertion R06.09 Active 07509453 Problem 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 51710239 Problem Atrial tachycardia I47.1 Active 511387193 Problem Primary insomnia F51.01 Active 7721818 Problem Hot flashes N95.1 Active 411152510 Problem Hypertension I10 Active 89568797 Problem Facial rash R21 Active 177934461 Problem Elevated LFTs R79.89 Active 439883377 Problem Insomnia, unspecified type G47.00 Active 306902929 Problem Gastroparesis K31.84 Active 640989156 Problem Familial hypercholesterolemia E78.0 Active 502185861 Problem Other insomnia G47.09 Active 370049091 Problem Anxiety F41.9 Active 99548013 Problem History of thyroidectomy E89.0 Active 515794633 Problem Thyroiditis E06.9 Active 06644717 Problem Essential hypertension I10 Active 13753687 Problem Chronic obstructive pulmonary disease with acute lower respiratory infection J44.0 Active 875200678 Problem Vitamin D deficiency E55.9 Active 25574185 Problem Hyperlipidemia, unspecified E78.5 Active 52047935 Problem Dyslipidemia E78.5 Active 523262851 Problem Other and unspecified hyperlipidemia E78.5 Active 98450703 Problem Chronic obstructive pulmonary disease, unspecified COPD type J44.9 Active 39274754 Problem Menopausal hot flushes N95.1 Active 693731390 Problem COPD with exacerbation J44.1 Active 660214735 Problem Chronic obstructive pulmonary disease with acute lower respiratory infection J44.0 Active [id number] ALLERGIES No Information ENCOUNTERS Encounter Location Date Diagnosis [facility] [address] [place] [address] [id number] Feb, [facility] [address] [id number] Jan, Chronic obstructive pulmonary disease with acute lower respiratory infection J44.0 and Hemoptysis R04.2 [facility] [place] [address] [id number] [place] [id number] Jan, Hyperlipidemia, unspecified E78.5 [facility] [address] [place] [address] [id number] Jan, [facility] [address] [place] [address] [id number] Jan, [facility] [address] [place] [address] [id number] Jan, Chronic obstructive pulmonary disease with acute lower respiratory infection J44.0 ; Hypertension I10 and Dyslipidemia E78.5 [facility] [address] [place] [address] [id number] Dec, [facility] [address] [place] [address] [id number] Dec, [facility] [address] [id number] Dec, Right lower quadrant pain R10.31 [facility] [address] [place] [address] [id number] October, COPD with exacerbation J44.1 and Acute left-sided thoracic back pain M54.6 [facility] [address] [place] [address] [id number] Sep, [facility] [address] [place] [address] [id number] Sep, [facility] [address] [place] [address] [id number] Sep, [facility] [address] [place] [address] [id number] Sep, Smoking F17.200 and Upper respiratory infection with cough and congestion J06.9 [facility] [address] [place] [address] [id number] Sep, Infiltrate noted on imaging study R93.89 [facility] [address] [place] [address] [id number] Sep, Rib pain R07.81 [facility] [address] [place] [address] [id number] Aug, Rib pain R07.81 [facility] [address] [facility] [address] [place] [address] [id number] Aug, [facility] [address] [place] [address] [id number] Aug, [facility] [address] [facility] [address] [place] [address] [id number] Aug, [facility] [address] [place] [address] [id number] Aug, [facility] [address] [place] [address] [id number] Aug, Cough R05 [facility] [address] [place] [address] [id number] Aug, Right hand pain M79.641 and Atypical pigmented skin lesion L81.9 [facility] [address] [place] [address] [id number] Aug, [facility] [address] [place] [address] [id number] Aug, De Quervain's disease (radial styloid tenosynovitis) M65.4 and Atypical mole D22.9 [facility] [address] [place] [address] [id number] Jul, Cough R05 [facility] [address] [place] [address] [id number] Jun, Upper respiratory tract infection, unspecified type J06.9 [facility] [address] [place] [address] [id number] Jun, Neck pain on left side M54.2 [facility] [address] [facility] [id number] [place] [address] Jun, [facility] [address] [place] [address] [id number] Jun, Neck pain on left side M54.2 and Neck nodule R22.1 [facility] [address] [place] [address] [id number] Jun, Acute gastritis without hemorrhage, unspecified gastritis type K29.00 [facility] [address] [id number] May, Chronic nonintractable headache, unspecified headache type R51 [facility] [address] [id number] Apr, Subacute frontal sinusitis J01.10 and Chronic nonintractable headache, unspecified headache type R51 [facility] [address] [id number] Apr, [facility] [address] [id number] Mar, Encounter for immunization Z23 [address] [address] Feb, Primary insomnia F51.01 [facility] [address] [place] [address] [id number] Feb, Primary insomnia F51.01 [facility] [address] [place] [address] [id number] Feb, Mucous cyst of nasal sinus J34.1 [facility] [address] [place] [address] [id number] Jan, [address] [address] Dec, [address] [address] Dec, Primary insomnia F51.01 ; Anxiety F41.9 and Menopausal hot flushes N95.[address] [address] October, Dry mouth, unspecified R68.2 ; Pharyngitis, unspecified etiology J02.9 and Primary insomnia F51.[address] [address] October, [facility] [address] Sep, [facility] [address] Sep, Hemoptysis R04.[address] [address] Sep, Primary insomnia F51.01 [facility] [address] [address] [place] [address] Sep, Adverse effect of drug, initial encounter T88.7XXA [facility] [address] [place] [address] Aug, Adverse effect of drug, initial encounter T88.7XXA [facility] [address] [place] [address] Aug, Primary insomnia F51.01 [facility] [address] [place] [address] Jul, [facility] [address] [place] [address] Jul, Primary insomnia F51.01 [address] [address] Jul, [facility] [address] [address] [place] [address] Jul, Atrial tachycardia I47.1 [facility] [address] [place] [address] Jul, [facility] [address] [address] Jun, Flu-like symptoms R68.89 and Chronic obstructive pulmonary disease, unspecified COPD type J44.9 [facility] [address] [place] [address] Jun, [facility] [address] [place] [address] Jun, [facility] [address] [place] [address] Jun, [facility] [address] [address] Jun, Epigastric pain R10.13 ; Diarrhea, unspecified type R19.7 and Non-intractable vomiting without nausea, unspecified vomiting type R11.11 [address] [place] [address] 15 May, [address] [address] 13 May, 2017 Chronic nonintractable headache, unspecified headache type R51 [address] [address] 06 May, [address] [address] 04 May, 2017 Essential hypertension I10 ; Thyroiditis E06.9 and Nonintractable episodic headache, unspecified headache type R51 [facility] [address] [address] 18 Feb, 2017 Dyslipidemia E78.5 ; Vitamin D deficiency E55.9 and Atherosclerosis of left carotid artery I65.[address] [address] Jan, [facility] [address] [facility] [id number] [place] [address] Dec, Vin [address] [address] Dec, Atrial tachycardia I47.1 ; History of thyroidectomy E89.0 ; Primary insomnia F51.01 and Tobacco use Z72.0 [facility] [address] [address] October, Galactorrhea O92.[address] [address] October, [facility] [address] [address] October, [facility] [address] [address] October, [facility] [address] [address] October, Cough R05 and Other chest pain R07.89 [facility] [address] [address] Sep, Dysuria R30.0 ; Acute cystitis without hematuria N30.00 and Chest tightness or pressure R07.89 [facility] [place] [address] [place] [address] Sep, [facility] [place] [address] [place] [address] Sep, Acute bilateral low back pain without sciatica M54.5 [facility] [place] [address] [place] [address] Aug, Dermatitis L30.9 ; Other insomnia G47.09 and Anxiety F41.9 [facility] [place] [address] [place] [address] Aug, [facility] [place] [address] [place] [address] Aug, Hypertension I10 ; Dyslipidemia E78.5 and Vitamin D deficiency E55.9 [facility] [place] [address] [place] [address] Jun, Anxiety F41.9 and Hypertension I10 [facility] [address] [facility] [id number] [address] Jun, [facility] [place] [address] [place] [address] Jun, Anxiety F41.9 and Hypertension I10 [facility] [place] [address] [place] [address] Jun, [facility] [place] [address] [place] [address] May, [facility] [place] [address] [place] [address] May, Acute upper back pain M54.9 and Hypertension I10 [facility] [place] [address] [place] [address] Apr, [facility] [place] [address] [place] [address] Apr, Mid-back pain, acute M54.9 ; Dyslipidemia E78.5 and Hypertension I10 [facility] [place] [address] [place] [address] Apr, [facility] [place] [address] [place] [address] Apr, [address] [address] Feb, Familial hypercholesterolemia E78.0 ; Occlusion and stenosis of left carotid artery I65.22 and Vitamin D deficiency E55.[address] [address] Feb, [address] [address] Feb, Fever, unspecified fever cause R50.9 and Acute non-recurrent maxillary sinusitis J01.[address] [address] Jan, [address] [address] Jan, [address] [address] Jan, Nodule of neck R22.1 and Night sweats R61 [address] [address] Dec, [address] [address] Dec, [address] [address] Nov, [address] [address] Nov, [address] [address] October, Acute upper respiratory infection, unspecified J06.9 ; Other viral agents as the cause of diseases classified elsewhere B97.89 and Calculus of gallbladder without cholecystitis without obstruction K80.[address] [address] Sep, Insomnia, unspecified type G47.00 ; Hypertension I10 and Elevated LFTs R79.[address] [address] Sep, Bleeding after intercourse N93.0 and Dysuria R30.0 [facility] [place] [address] [place] [address] 31 Aug, 2015 Dysuria R30.0 and Pyuria N39.[address] [address] Aug, Hypertension I10 ; Insomnia, unspecified type G47.00 and 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 [facility] [address] [place] [address] 12 Jul, 2015 Pain of upper extremity M79.603 ; Hypertension I10 and Pure hypercholesterolemia E78.[address] [address] 09 Jul, 2015 Physical exam, pre-employment Z02.1 ; Visit for TB skin test Z11.1 ; Facial rash R21 and 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 [address] 04 Jul, 2015 Other and unspecified hyperlipidemia E78.5 ; Vitamin D deficiency E55.9 and Borderline abnormal thyroid function test R94.[address] [address] Jun, 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 ; Dyslipidemia E78.5 ; Dyspnea on exertion R06.09 ; Family history of cardiovascular disease Z82.49 and Borderline abnormal thyroid function test R94.[address] [address] May, Other emphysema J43.8 ; Smoking F17.200 and Tobacco abuse counseling Z71.[address] [address] May, Cough R05 and Other emphysema J43.[address] [address] Apr, [address] [address] Apr, Skin lesion of back L98.9 and Skin lesion L98.[address] [address] Apr, Skin lesion of back L98.9 and Hot flashes N95.[address] [address] Mar, Bronchitis J40 [address] [address] 09 Mar, 2015 Acute pharyngitis, unspecified J02.9 and Upper respiratory infection with cough and congestion J06.[address] [address] Mar, Bronchitis J40 ; Shortness of breath R06.02 ; Encounter for screening mammogram for breast cancer Z12.31 and Yeast infection B37.[address] [address] Jan, Other and unspecified hyperlipidemia 272.4 and Hypothyroidism 244.[address] [address] Dec, [address] [address] Nov, Diarrhea 787.91 and Nausea 787.[address] [address] October, Other and unspecified hyperlipidemia 272.[address] [address] October, Lumbago 724.[address] [place] [address] Sep, [address] [place] [address] Sep, [address] [place] [address] Aug, [address] [address] Aug, [address] [address] Jun, [id number] [address] Jun, [facility] [address] [id number] [address] May, [facility] [address] [id number] [address] May, [facility] [place] [address] [place] [address] May, [facility] [place] [address] [place] [address] Apr, [facility] [address] [id number] [address] Apr, [facility] [place] [address] [place] [address] Mar, [facility] [address] [address] Mar, [facility] [place] [address] [place] [address] Mar, [facility] [address] [id number] [address] Mar, [facility] [address] [id number] [address] Mar, [facility] [place] [address] [place] [address] Mar, [facility] [place] [address] [place] [address] Feb, [facility] [address] [id number] [address] Feb, [facility] [place] [address] [place] [address] Jan, [facility] [address] [id number] [address] Jan, [facility] [address] [id number] [address] Jan, [facility] [address] [facility] [id number] [address] Jan, [facility] [place] [address] [place] [address] Jan, [facility] [address] [facility] [id number] [address] Jan, [facility] [place] [address] [place] [address] Dec, [facility] [address] [facility] [id number] [place] [address] Dec, [facility] [address] [facility] [id number] [address] Dec, [facility] [address] [id number] [address] Dec, [facility] [place] [address] [place] [address] Dec, [facility] [place] [address] [place] [address] Dec, [facility] [address] [id number] [address] Dec, [facility] [place] [address] [place] [address] October, [facility] [address] [facility] [id number] [address] October, [facility] [address] [facility] [id number] [address] October, [facility] [place] [address] [place] [address] Sep, [facility] [address] [facility] [id number] [address] Sep, [facility] [place] [address] [place] [address] Sep, [facility] [address] [id number] [address] Sep, [facility] [address]005[address]100[place] [address] Aug, [facility] [address] [place] [address] Aug, [facility] [address]100[place] [address] Jun, [facility] [address] [place] [address] Jun, [facility] [address] [place] [address] Jun, [facility] [address] [address] May, [address] [place] [address] May, [address] [place] [address] May, [facility] [address] [address] May, [address] [address] Apr, [facility] [address] [place] [address] Apr, [address] [address] Feb, [facility] [address] [place] [address] Feb, IMMUNIZATIONS No Known Immunizations SOCIAL HISTORY [...]
--- OUTSIDE RECORDS SUMMARY | 2019-04-01 10:32 | XMS REPORT ---
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 [employer]almer Funeral Director Name Role Phone ASHELY OTT Unavailable PROBLEMS Type Condition ICD9-CM Code KGO34-UA Code Onset Dates Condition Status SNOMED Code Problem Skin lesion of back L98.9 Active 53222433 Problem Other emphysema J43.8 Active 46603082 Problem Smoking F17.200 Active 54280918 Problem Family history of cardiovascular disease Z82.49 Active 888469897 Problem Borderline abnormal thyroid function test R94.6 Active 047338811 Problem Dyspnea on exertion R06.09 Active 33112489 Problem 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 84313095 Problem Atrial tachycardia I47.1 Active 515869015 Problem Primary insomnia F51.01 Active 0796571 Problem Hot flashes N95.1 Active 517089849 Problem Hypertension I10 Active 45320660 Problem Facial rash R21 Active 790068910 Problem Elevated LFTs R79.89 Active 238332858 Problem Insomnia, unspecified type G47.00 Active 102650920 Problem Gastroparesis K31.84 Active 276686397 Problem Familial hypercholesterolemia E78.0 Active 034562276 Problem Other insomnia G47.09 Active 579239490 Problem Anxiety F41.9 Active 77837755 Problem History of thyroidectomy E89.0 Active 287724046 Problem Thyroiditis E06.9 Active 96162699 Problem Essential hypertension I10 Active 25280939 Problem Chronic obstructive pulmonary disease with acute lower respiratory infection J44.0 Active 864355166 Problem Vitamin D deficiency E55.9 Active 41676486 Problem Hyperlipidemia, unspecified E78.5 Active 35187185 Problem Dyslipidemia E78.5 Active 470925916 Problem Other and unspecified hyperlipidemia E78.5 Active 42599276 Problem Chronic obstructive pulmonary disease, unspecified COPD type J44.9 Active 05400223 Problem Menopausal hot flushes N95.1 Active 070253078 Problem COPD with exacerbation J44.1 Active 500189099 Problem Chronic obstructive pulmonary disease with acute lower respiratory infection J44.0 Active 609609285 ALLERGIES No Information ENCOUNTERS Encounter Location Date Diagnosis [facility] [address] [place] [address] [id number] Jan, Chronic obstructive pulmonary disease with acute lower respiratory infection J44.0 and Hemoptysis R04.2 [facility] [place] [address] [facility] [id number] [place] [id number] Jan, Hyperlipidemia, unspecified E78.5 [facility] [address] [place] [address] [id number] Jan, [facility] [address] [place] [address] [id number] Jan, [facility] [address] [place] [address] [id number] Jan, Chronic obstructive pulmonary disease with acute lower respiratory infection J44.0 ; Hypertension I10 and Dyslipidemia E78.5 [facility] [address] [place] [address] [id number] Dec, [facility] [address] [place] [address] [id number] Dec, [facility] [address] [place] [address] [id number] Dec, Right lower quadrant pain R10.31 [facility] [address] [place] [address] [id number] October, COPD with exacerbation J44.1 and Acute left-sided thoracic back pain M54.6 [facility] [address] [place] [address] [id number] Sep, [facility] [address] [id number] Sep, [facility] [address] [place] [address] [id number] Sep, [facility] [address] [place] [address] [id number] Sep, Smoking F17.200 and Upper respiratory infection with cough and congestion J06.9 [facility] [address] [place] [address] [id number] Sep, Infiltrate noted on imaging study R93.89 [facility] [address] [place] [address] [id number] Sep, Rib pain R07.81 [facility] [address] [place] [address] [id number] Aug, Rib pain R07.81 [facility] [address] [place] [address] [id number] Aug, [facility] [address] [place] [address] [id number] Aug, [facility] [address] [place] [address] [id number] Aug, [facility] [address] [place] [address] [id number] Aug, [facility] [address] [place] [address] [id number] Aug, Cough R05 [facility] [address] [place] [address] [id number] Aug, Right hand pain M79.641 and Atypical pigmented skin lesion L81.9 [facility] [address] [place] [address] [id number] Aug, [facility] [address] [place] [address] [id number] Aug, De Quervain's disease (radial styloid tenosynovitis) M65.4 and Atypical mole D22.9 [facility] [address] [place] [address] [id number] Jul, Cough R05 [facility] [address] [place] [address] [id number] Jun, Upper respiratory tract infection, unspecified type J06.9 [facility] [address] [place] [address] [id number] Jun, Neck pain on left side M54.2 [facility] [address] [facility] [id number] [place] [address] Jun, [facility] [address] [place] [address] [id number] Jun, Neck pain on left side M54.2 and Neck nodule R22.1 [facility] [address] [place] [address] [id number] Jun, Acute gastritis without hemorrhage, unspecified gastritis type K29.00 [facility] [address] [place] [address] [id number] May, Chronic nonintractable headache, unspecified headache type R51 [facility] [address] [place] [address] [id number] Apr, Subacute frontal sinusitis J01.10 and Chronic nonintractable headache, unspecified headache type R51 [facility] [address] [place] [address] [id number] Apr, [facility] [address] [id number] Mar, Encounter for immunization Z23 [facility] [address] [place] [address] Feb, Primary insomnia F51.01 [facility] [address] [place] [address] [id number] Feb, Primary insomnia F51.01 [facility] [address] [place] [address] [id number] Feb, Mucous cyst of nasal sinus J34.1 [facility] [address] [place] [address] [id number] Jan, [facility] [address] [place] [address] Dec, [facility] [address] [address] Dec, Primary insomnia F51.01 ; Anxiety F41.9 and Menopausal hot flushes N95.1 [facility] [address] [place] [address] October, Dry mouth, unspecified R68.2 ; Pharyngitis, unspecified etiology J02.9 and Primary insomnia F51.01 [facility] [address] [place] [address] October, [facility] [address] [address] Sep, [facility] [address] [address] Sep, Hemoptysis R04.2 [facility] [address] [place] [address] Sep, Primary insomnia F51.01 [facility] [address] [place] [address] Sep, Adverse effect of drug, initial encounter T88.7[facility] [place] [address] [place] [address] Aug, Adverse effect of drug, initial encounter T88.7XXA [facility] [place] [address] [place] [address] Aug, Primary insomnia F51.01 [facility] [place] [address] [place] [address] Jul, [facility] [place] [address] [place] [address] Jul, Primary insomnia F51.01 [address] [address] Jul, [facility] [address] [place] [address] Jul, Atrial tachycardia I47.1 [facility] [address] [place] [address] Jul, [facility] [address] [place] [address] Jun, Flu-like symptoms R68.89 and Chronic obstructive pulmonary disease, unspecified COPD type J44.9 [facility] [address] [place] [address] Jun, [facility] [place] [address] [place] [address] Jun, [facility] [place] [address] [place] [address] Jun, [facility] [address] [address] [place] [address] Jun, Epigastric pain R10.13 ; Diarrhea, unspecified type R19.7 and Non-intractable vomiting without nausea, unspecified vomiting type R11.11 [address] [address] May, [facility] [address] [address] 13 May, 2017 Chronic nonintractable headache, unspecified headache type R51 [address] [address] May, [facility] [address] [address] May, Essential hypertension I10 ; Thyroiditis E06.9 and Nonintractable episodic headache, unspecified headache type R51 [facility] [address] [address] Feb, Dyslipidemia E78.5 ; Vitamin D deficiency E55.9 and Atherosclerosis of left carotid artery I65.22 [facility] [address] [address] Jan, [facility] [address] [facility] [id number] [place] [address] Dec, [facility] [address] [address] Dec, Atrial tachycardia I47.1 ; History of thyroidectomy E89.0 ; Primary insomnia F51.01 and Tobacco use Z72.0 [facility] [address] [address] October, Galactorrhea O92.6 [facility] [address] [address] October, [facility] [address] [address] October, [address] [address] October, [facility] [address] [address] October, Cough R05 and Other chest pain R07.[address] [address] Sep, Dysuria R30.0 ; Acute cystitis without hematuria N30.00 and Chest tightness or pressure R07.[address] [address] Sep, [facility] [place] [address] [place] [address] Sep, Acute bilateral low back pain without sciatica M54.5 [facility] [place] [address] [place] [address] Aug, Dermatitis L30.9 ; Other insomnia G47.09 and Anxiety F41.9 [facility] [place] [address] [place] [address] Aug, [facility] [place] [address] [place] [address] Aug, Hypertension I10 ; Dyslipidemia E78.5 and Vitamin D deficiency E55.9 [facility] [address] [place] [address] Jun, Anxiety F41.9 and Hypertension I10 [facility] [address] [facility] [id number] [place] [address] Jun, [facility] [place] [address] [place] [address] Jun, Anxiety F41.9 and Hypertension I10 [facility] [place] [address] [place] [address] Jun, [facility] [place] [address] [place] [address] May, [facility] [place] [address] [place] [address] May, Acute upper back pain M54.9 and Hypertension I10 [facility] [place] [address] [place] [address] Apr, [facility] [place] [address] [place] [address] Apr, Mid-back pain, acute M54.9 ; Dyslipidemia E78.5 and Hypertension I10 [facility] [place] [address] [place] [address] Apr, [facility] [place] [address] [place] [address] Apr, [facility] [place] [address] [place] [address] Feb, Familial hypercholesterolemia E78.0 ; Occlusion and stenosis of left carotid artery I65.22 and Vitamin D deficiency E55.[address] [address] Feb, [address] [address] Feb, Fever, unspecified fever cause R50.9 and Acute non-recurrent maxillary sinusitis J01.[address] [address] Jan, [address] [address] Jan, [address] [address] Jan, Nodule of neck R22.1 and Night sweats R61 [address] [address] Dec, [address] [address] Dec, [address] [address] Nov, [address] [address] Nov, [address] [address] October, Acute upper respiratory infection, unspecified J06.9 ; Other viral agents as the cause of diseases classified elsewhere B97.89 and Calculus of gallbladder without cholecystitis without obstruction K80.[address] [address] Sep, Insomnia, unspecified type G47.00 ; Hypertension I10 and Elevated LFTs R79.[address] [address] Sep, Bleeding after intercourse N93.0 and Dysuria R30.[address] [address] Aug, Dysuria R30.0 and Pyuria N39.[address] [address] Aug, Hypertension I10 ; Insomnia, unspecified type G47.00 and 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 [address] 12 Jul, 2015 Pain of upper extremity M79.603 ; Hypertension I10 and Pure hypercholesterolemia E78.[address] [address] 09 Jul, 2015 Physical exam, pre-employment Z02.1 ; Visit for TB skin test Z11.1 ; Facial rash R21 and 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 [address] 04 Jul, 2015 Other and unspecified hyperlipidemia E78.5 ; Vitamin D deficiency E55.9 and Borderline abnormal thyroid function test R94.[address] [address] Jun, 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 ; Dyslipidemia E78.5 ; Dyspnea on exertion R06.09 ; Family history of cardiovascular disease Z82.49 and Borderline abnormal thyroid function test R94.[address] [address] May, Other emphysema J43.8 ; Smoking F17.200 and Tobacco abuse counseling Z71.[address] [address] May, Cough R05 and Other emphysema J43.[address] [address] Apr, [address] [address] Apr, Skin lesion of back L98.9 and Skin lesion L98.[address] [address] Apr, Skin lesion of back L98.9 and Hot flashes N95.[address] [address] 12 Mar, 2015 Bronchitis J40 [address] [address] 09 Mar, 2015 Acute pharyngitis, unspecified J02.9 and Upper respiratory infection with cough and congestion J06.[address] [address] Mar, Bronchitis J40 ; Shortness of breath R06.02 ; Encounter for screening mammogram for breast cancer Z12.31 and Yeast infection B37.[address] [address] Jan, Other and unspecified hyperlipidemia 272.4 and Hypothyroidism 244.[address] [address] Dec, [address] [address] Nov, Diarrhea 787.91 and Nausea 787.[address] [address] October, Other and unspecified hyperlipidemia 272.[address] [address] October, Lumbago 724.[address] [place] [address] Sep, [place] [id number] [place] [address] Sep, [place] [id number] [place] [address] Aug, [address] [address] Aug, [address] [address] Jun, [id number] [place] [address] Jun, [facility] [address] [facility] [id number] [address] May, [facility] [address] [id number], [place] [address] May, [facility] [place] [address] [facility] [place] [address] May, [facility] [place] [address] [place] [address] Apr, [facility] [address] [id number] [address] Apr, [facility] [place] [address] [place] [address] Mar, [facility] [id number] [address] Mar, [facility] [place] [address] [place] [address] Mar, [facility] [id number], [place] [address] Mar, [facility] [id number] [place] [address] Mar, [facility] [place] [address] [place] [address] Mar, [facility] [place] [address] [place] [address] Feb, [facility] [address] [id number], [place] [address] Feb, [facility] [place] [address] [place] [address] Jan, [facility] [id number], [place] [address] Jan, [facility] [id number], [place] [address] Jan, [facility] [address], [place] [address] Jan, [facility] [place] [address] [facility] [place] [address] Jan, [facility] [place] [facility] [address] [facility] [id number] [place] [address] Jan, [facility] [place] [address] [facility] [place] [address] Dec, [facility] [place] [facility] [address] [facility] [id number] [place] [address] Dec, [facility] [place] [facility] [address] [facility] [id number] [place] [address] Dec, [facility] [id number] [place] [address] Dec, [facility] [place] [address] [place] [address] Dec, [facility] [place] [address] [facility] [place] [address] Dec, [facility] [place] [facility] [id number] [address] Dec, [facility] [place] [address] [facility] [place] [address] October, [facility] [place] [facility] [id number], [place] [address] October, [facility] [address] [facility] [id number], [place] [address] October, [facility] [place] [address] [place] [address] Sep, [facility] [place] [facility] [address] [facility] [id number], [place] [address] Sep, [facility] [place] [address] [facility] [place] [address] Sep, [facility] [place] [facility] [id number], [place] [address] Sep, [facility] [place] [facility] [id number], [place] [address] Aug, [facility] [address] [place] [address] Aug, [facility] [address], [place] [address] Jun, [facility] [address], [place] [address] Jun, [facility] [place] [address] [place] [address] Jun, [facility] [place] [address] [place] [address] May, [facility] [id number] [place] [address] May, [facility] [address], [place] [address] May, [facility] [address] [place] [address] May, [facility] [address] [place] [address] Apr, [facility] [address], [place] [address] Apr, [facility] [address], [place] [address] Feb, [facility] [address] [place] [address] Feb, IMMUNIZATIONS No Known Immunizations SOCIAL HISTORY Never Assessed REASON FOR VISIT Cough PLAN OF CARE VITAL SIGNS MEDICATIONS Medication Instructions Dosage Frequency Start Date End Date Duration Status Tussionex Pennkinetic ER 10-8 MG/5ML Orally every 12 hrs 5 ml as needed 12h Aug, 5 days Active RESULTS No Results PROCEDURES No Known procedures [...]
--- OUTSIDE RECORDS SUMMARY | 2019-04-01 10:33 | XMS REPORT ---
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 48016812 Problem Family history of cardiovascular disease Z82.49 Active 577377664 Problem Primary insomnia F51.01 Active 3803860 Problem Other insomnia G47.09 Active 145430677 Problem Facial rash R21 Active 700150814 Problem Other and unspecified hyperlipidemia E78.5 Active 29480131 Problem Insomnia, unspecified type G47.00 Active 809972506 Problem Hypertension I10 Active 75150574 Problem Familial hypercholesterolemia E78.0 Active 877838878 Problem Elevated LFTs R79.89 Active 527899322 Problem Anxiety F41.9 Active 51092872 Problem Gastroparesis K31.84 Active 301045763 Problem Atrial tachycardia I47.1 Active 456259669 Problem History of thyroidectomy E89.0 Active 992898372 Problem Thyroiditis E06.9 Active 19131268 Problem Chronic obstructive pulmonary disease with acute lower respiratory infection J44.0 Active 252885898 Problem Dyslipidemia E78.5 Active 618851331 Problem Chronic obstructive pulmonary disease with acute lower respiratory infection J44.0 Active 402958910 Problem Dyspnea on exertion R06.09 Active 96945034 Problem Vitamin D deficiency E55.9 Active 15473237 Problem Essential hypertension I10 Active 34823114 Problem Chronic obstructive pulmonary disease, unspecified COPD type J44.9 Active 71328099 Problem Menopausal hot flushes N95.1 Active Problem COPD with exacerbation J44.1 Active 184327014 ALLERGIES No Information ENCOUNTERS Encounter Location Date Diagnosis [facility] [address] [place] [address] 10 Jan, 2019 [facility] [address] [place] [address] 09 Jan, 2019 Chronic obstructive pulmonary disease with acute lower respiratory infection J44.0 ; Hypertension I10 and Dyslipidemia E78.5 [facility] [address] [place] [address] 16 Dec, 2018 [facility] [address] [place] [address] Dec, [facility] [address] [place] [address] Dec, Right lower quadrant pain R10.31 [facility] [address] [place] [address] October, COPD with exacerbation J44.1 and Acute left-sided thoracic back pain M54.6 [facility] [address] [place] [address] Sep, [facility] [address] [place] [address] 16 Sep, 2018 [facility] [address] [place] [address] 15 Sep, 2018 [facility] [address] [place] [address] Sep, Smoking F17.200 and Upper respiratory infection with cough and congestion J06.9 [facility] [address] [place] [address] Sep, Infiltrate noted on imaging study R93.89 [facility] [address] [place] [address] Sep, Rib pain R07.81 [facility] [address] [place] [address] Aug, Rib pain R07.81 [facility] [address] [place] [address] Aug, [facility] [address] [place] [address] Aug, [facility] [address] [place] [address] Aug, [facility] [address] [place] [address] Aug, [facility] [address] [place] [address] Aug, Cough R05 [facility] [address] [place] [address] Aug, Right hand pain M79.641 and Atypical pigmented skin lesion L81.9 [facility] [address] [place] [address] Aug, [facility] [address] [place] [address] Aug, De Quervain's disease (radial styloid tenosynovitis) M65.4 and Atypical mole D22.9 [facility] [address] [place] [address] Jul, Cough R05 [facility] [address] [place] [address] Jun, Upper respiratory tract infection, unspecified type J06.9 [facility] [address] [place] [address] Jun, Neck pain on left side M54.2 [facility] [address] [facility] [id number] [address] Jun, [facility] [address] [place] [address] Jun, Neck pain on left side M54.2 and Neck nodule R22.1 [facility] [address] [place] [address] Jun, Acute gastritis without hemorrhage, unspecified gastritis type K29.00 [facility] [address] [address] May, Chronic nonintractable headache, unspecified headache type R51 [facility] [address] [place] [address] 06 Apr, 2018 Subacute frontal sinusitis J01.10 and Chronic nonintractable headache, unspecified headache type R51 [facility] [address] [place] [address] Apr, [facility] [address] [place] [address] Mar, Encounter for immunization Z23 Thao [place] [address] [place] [address] 30 Feb, 2018 Primary insomnia F51.01 [facility] [address] [place] [address] 28 Feb, 2018 Primary insomnia F51.01 [facility] [address] [facility] [address] [place] [address] 07 Feb, 2018 Mucous cyst of nasal sinus J34.1 [facility] [address] [place] [address] Jan, [facility] [place] [address] [place] [address] Dec, [facility] [address] [place] [address] Dec, Primary insomnia F51.01 ; Anxiety F41.9 and Menopausal hot flushes N95.1 [facility] [place] [address] [place] [address] October, Dry mouth, unspecified R68.2 ; Pharyngitis, unspecified etiology J02.9 and Primary insomnia F51.01 [facility] [place] [address] [place] [address] October, [facility] [place] [address] [place] [address] Sep, [facility] [address] [address] Sep, Hemoptysis R04.2 [facility] [address] [place] [address] 16 Sep, 2017 Primary insomnia F51.01 [facility] [place] [address] [place] [address] 09 Sep, 2017 Adverse effect of drug, initial encounter T88.7XXA [facility] [address] [place] [address] Aug, Adverse effect of drug, initial encounter T88.7XXA AnaPHILIP [place] [address] [place] [address] Aug, Primary insomnia F51.01 filiberto[facility]CSKORINA [place] [address] [place] [address] Jul, [facility] [place] [address] [place] [address] Jul, Primary insomnia F51.01 [address] [address] Jul, [facility] [place] [address] [place] [address] Jul, Atrial tachycardia I47.1 [facility] [place] [address] [place] [address] Jul, [facility] [address] [address] Jun, Flu-like symptoms R68.89 and Chronic obstructive pulmonary disease, unspecified COPD type J44.9 Vin [place] [address] [place] [address] Jun, kiranCSKORINA [address] [address] Jun, [facility] [address] [address] Jun, [facility] [address] [address] Jun, Epigastric pain R10.13 ; Diarrhea, unspecified type R19.7 and Non-intractable vomiting without nausea, unspecified vomiting type R11.11 [address], [place] [address] May, [facility] [address] [address] May, Chronic nonintractable headache, unspecified headache type R51 [facility] [place] [address] [place] [address] May, [facility] [address] [address] May, Essential hypertension I10 ; Thyroiditis E06.9 and Nonintractable episodic headache, unspecified headache type R51 [facility] [address] [address] Feb, Dyslipidemia E78.5 ; Vitamin D deficiency E55.9 and Atherosclerosis of left carotid artery I65.[address] [address] Jan, [facility] [address] [facility] [id number] [place] [address] Dec, [address] [address] Dec, Atrial tachycardia I47.1 ; History of thyroidectomy E89.0 ; Primary insomnia F51.01 and Tobacco use Z72.[address] [address] October, Galactorrhea O92.[address] [address] October, [address] [address] October, [address] [address] October, [address] [address] October, Cough R05 and Other chest pain R07.[address] [address] Sep, Dysuria R30.0 ; Acute cystitis without hematuria N30.00 and Chest tightness or pressure R07.[address] [address] Sep, [address] [address] Sep, Acute bilateral low back pain without sciatica M54.[address] [address] Aug, Dermatitis L30.9 ; Other insomnia G47.09 and Anxiety F41.9 [facility] [place] [address] [place] [address] Aug, [facility] [place] [address] [place] [address] Aug, Hypertension I10 ; Dyslipidemia E78.5 and Vitamin D deficiency E55.9 [facility] [place] [address] [place] [address] Jun, Anxiety F41.9 and Hypertension I10 [facility] [address] [facility] [id number], [place] [address] Jun, [facility] [place] [address] [place] [address] Jun, Anxiety F41.9 and Hypertension I10 [facility] [place] [address] [place] [address] Jun, [facility] [place] [address] [place] [address] May, [facility] [place] [address] [place] [address] May, Acute upper back pain M54.9 and Hypertension I10 [facility] [address] [place] [address] Apr, [facility] [place] [address] [place] [address] Apr, Mid-back pain, acute M54.9 ; Dyslipidemia E78.5 and Hypertension I10 [facility] [place] [address] [place] [address] Apr, [facility] [place] [address] [place] [address] Apr, [facility] [address] [place] [address] Feb, Familial hypercholesterolemia E78.0 ; Occlusion and stenosis of left carotid artery I65.22 and Vitamin D deficiency E55.9 [facility] [place] [address] [place] [address] Feb, [facility] [place] [address] [place] [address] Feb, Fever, unspecified fever cause R50.9 and Acute non-recurrent maxillary sinusitis J01.[address] [address] Jan, [address] [address] Jan, [address] [address] Jan, Nodule of neck R22.1 and Night sweats R61 [address] [address] Dec, [address] [address] Dec, [address] [address] Nov, [address] [address] Nov, [address] [address] October, Acute upper respiratory infection, unspecified J06.9 ; Other viral agents as the cause of diseases classified elsewhere B97.89 and Calculus of gallbladder without cholecystitis without obstruction K80.[address] [address] Sep, Insomnia, unspecified type G47.00 ; Hypertension I10 and Elevated LFTs R79.[address] [address] Sep, Bleeding after intercourse N93.0 and Dysuria R30.[address] [address] Aug, Dysuria R30.0 and Pyuria N39.[address] [address] Aug, Hypertension I10 ; Insomnia, unspecified type G47.00 and 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 [address] 12 Jul, 2015 Pain of upper extremity M79.603 ; Hypertension I10 and Pure hypercholesterolemia E78.[address] [address] 09 Jul, 2015 Physical exam, pre-employment Z02.1 ; Visit for TB skin test Z11.1 ; Facial rash R21 and 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 [address] 04 Jul, 2015 Other and unspecified hyperlipidemia E78.5 ; Vitamin D deficiency E55.9 and Borderline abnormal thyroid function test R94.[address] [address] Jun, 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 ; Dyslipidemia E78.5 ; Dyspnea on exertion R06.09 ; Family history of cardiovascular disease Z82.49 and Borderline abnormal thyroid function test R94.[address] [address] May, Other emphysema J43.8 ; Smoking F17.200 and Tobacco abuse counseling Z71.[address] [address] May, Cough R05 and Other emphysema J43.[address] [address] Apr, [address] [address] Apr, Skin lesion of back L98.9 and Skin lesion L98.[address] [address] 03 Apr, 2015 Skin lesion of back L98.9 and Hot flashes N95.[address] [address] Mar, Bronchitis J40 [address] [address] 09 Mar, 2015 Acute pharyngitis, unspecified J02.9 and Upper respiratory infection with cough and congestion J06.9 [facility] [place] [address] [place] [address] Mar, Bronchitis J40 ; Shortness of breath R06.02 ; Encounter for screening mammogram for breast cancer Z12.31 and Yeast infection B37.[address] [address] Jan, Other and unspecified hyperlipidemia 272.4 and Hypothyroidism 244.[address] [address] Dec, [address] [address] Nov, Diarrhea 787.91 and Nausea 787.[address] [address] October, Other and unspecified hyperlipidemia 272.[address] [address] October, Lumbago 724.[address] [address] Sep, [address] [address] Sep, [place] [id number] [place] [address] Aug, [address] [address] Aug, [address] [address] Jun, [place] [id number] [place] [address] Jun, [address] [address] May, [place] [id number] [place] [address] May, [address] [address] May, [facility] [place] [address] [facility] [place] [address] Apr, [facility] [address] [id number], [place] [address] Apr, [facility] [place] [address] [place] [address] Mar, [facility] [address] [id number], [place] [address] Mar, [facility] [place] [address] [facility] [place] [address] Mar, [facility] [id number], [place] [address] Mar, [facility] [address] [id number], [place] [address] Mar, [facility] [place] [address] [place] [address] Mar, [facility] [place] [address] [place] [address] Feb, [facility] [address] [id number], [place] [address] Feb, [facility] [place] [address] [place] [address] Jan, [facility] [address] [id number], [place] [address] Jan, [facility] [id number], [place] [address] Jan, [facility] [id number], [place] [address] Jan, [facility] [place] [address] [place] [address] Jan, [facility] [place] [facility] [id number], [place] [address] Jan, [facility] [place] [address] [place] [address] Dec, [facility] [place] [facility] [address] [facility] [id number] [place] [address] Dec, [facility] [place] [facility] [address] [facility] [id number], [place] [address] Dec, [facility] [place] [facility] [address] [facility] [id number] [place] [address] Dec, [facility] [place] [address] [facility] [place] [address] Dec, [facility] [place] [address] [facility] [place] [address] Dec, [facility] [place] [facility] [address] [facility] [id number], [place] [address] Dec, [facility] [place] [address] [facility] [place] [address] October, [facility] [place] [facility] [address] [id number], [place] [address] October, [facility] [place] [facility] [id number], [place] [address] October, [facility] [place] [address] [place] [address] Sep, [facility] [place] [facility] [id number], [place] [address] Sep, [facility] [place] [address] [place] [address] Sep, [facility] [place] [facility] [address] [facility] [id number], [place] [address] Sep, [facility] [place] [facility] [address] [facility] [id number], [place] [address] Aug, [facility] [place] [address] [place] [address] Aug, [facility] [place] [facility] [id number], [place] [address] Jun, [facility] [place] [facility] [id number], [place] [address] Jun, [facility] [place] [address] [place] [address] Jun, [facility] [place] [address] [place] [address] May, [facility] [address] [id number], [place] [address] May, [place] [id number], [place] [address] May, [facility] [place] [address] [place] [address] May, [facility] [place] [address] [place] [address] Apr, [place] [id number], [place] [address] Apr, [place] [id number], [place] [address] Feb, [place] [address] [place] [address] Feb, IMMUNIZATIONS No Known Immunizations SOCIAL HISTORY Never Assessed REASON FOR VISIT PLAN OF CARE VITAL SIGNS Height 65 in 2014-04-25 Weight 146 lbs 2014-04-25 Temperature 97.9 degrees Fahrenheit 2014-04-25 Heart Rate 64 bpm 2014-04-25 Respiratory Rate 16 2014-04-25 Blood pressure systolic 100 mmHg 2014-04-25 Blood pressure diastolic 68 mmHg 2014-04-25 MEDICATIONS Unknown Medications RESULTS No Results PROCEDURES Procedure Date Ordered Result Body Site ALBUTEROL INHAL UNIT DOSE 1 MG Apr 25, 2014 NEB/MDI RX INITIAL Apr 25, 2014 INSTRUCTIONS MEDICATIONS ADMINISTERED No Known Medications [...]
--- OUTSIDE RECORDS SUMMARY | 2019-04-01 10:33 | XMS REPORT ---
Author Author Migration, Doctor Organization 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 82267818 Problem Atrial tachycardia I47.1 Active 014039128 Problem Primary insomnia F51.01 Active 9834117 Problem Hot flashes N95.1 Active 358288895 Problem Hypertension I10 Active 62588053 Problem Facial rash R21 Active 403333879 Problem Elevated LFTs R79.89 Active 212907375 Problem Insomnia, unspecified type G47.00 Active 783818179 Problem Gastroparesis K31.84 Active 601591487 Problem Familial hypercholesterolemia E78.0 Active 271639775 Problem Other insomnia G47.09 Active 621629352 Problem Anxiety F41.9 Active 45580112 Problem History of thyroidectomy E89.0 Active 360918494 Problem Thyroiditis E06.9 Active 52947057 Problem Essential hypertension I10 Active 25072413 Problem Chronic obstructive pulmonary disease with acute lower respiratory infection J44.0 Active 929506491 Problem Vitamin D deficiency E55.9 Active 44355524 Problem Hyperlipidemia, unspecified E78.5 Active 77016198 Problem Dyslipidemia E78.5 Active 148738356 Problem Other and unspecified hyperlipidemia E78.5 Active 86965300 Problem Chronic obstructive pulmonary disease, unspecified COPD type J44.9 Active 68245132 Problem Menopausal hot flushes N95.1 Active 362867596 Problem COPD with exacerbation J44.1 Active 458717653 Problem Chronic obstructive pulmonary disease with acute lower respiratory infection J44.0 Active [id number] ALLERGIES No Information ENCOUNTERS Encounter Location Date Diagnosis [facility] [address] [place] [address] [place] [address] [id number] Jan, Chronic obstructive pulmonary disease with acute lower respiratory infection J44.0 and Hemoptysis R04.2 [facility] [place] [address] [facility] [id number] [place] [id number] Jan, Hyperlipidemia, unspecified E78.5 [facility] [address] [place] [address] [id number] Jan, [facility] [address] [place] [address] [id number] Jan, [facility] [address] [place] [address] [id number] Jan, Chronic obstructive pulmonary disease with acute lower respiratory infection J44.0 ; Hypertension I10 and Dyslipidemia E78.5 [facility] [address] [place] [address] [id number] Dec, [facility] [address] [id number] Dec, [facility] [address] [place] [address] [id number] Dec, Right lower quadrant pain R10.31 [facility] [address] [place] [address] [id number] October, COPD with exacerbation J44.1 and Acute left-sided thoracic back pain M54.6 [facility] [address] [place] [address] [id number] Sep, [facility] [address] [id number] Sep, [facility] [address] [place] [address] [id number] Sep, [facility] [address] [place] [address] [id number] Sep, Smoking F17.200 and Upper respiratory infection with cough and congestion J06.9 [facility] [address] [place] [address] [id number] Sep, Infiltrate noted on imaging study R93.89 [facility] [address] [place] [address] [id number] Sep, Rib pain R07.81 [facility] [address] [place] [address] [id number] Aug, Rib pain R07.81 [facility] [address] [place] [address] [id number] Aug, [facility] [address] [place] [address] [id number] Aug, [facility] [address] [place] [address] [id number] Aug, [facility] [address] [place] [address] [id number] Aug, [facility] [address] [facility] [place] [address] [id number] Aug, Cough R05 [facility] [address] [place] [address] [id number] Aug, Right hand pain M79.641 and Atypical pigmented skin lesion L81.9 [facility] [address] [place] [address] [id number] Aug, [facility] [address] [place] [address] [id number] Aug, De Quervain's disease (radial styloid tenosynovitis) M65.4 and Atypical mole D22.9 [facility] [address] [place] [address] [id number] Jul, Cough R05 [facility] [address] [place] [address] [id number] Jun, Upper respiratory tract infection, unspecified type J06.9 [facility] [address] [place] [address] [id number] Jun, Neck pain on left side M54.2 [facility] [address] [address] [id number] [address] Jun, [facility] [address] [place] [address] [id number] Jun, Neck pain on left side M54.2 and Neck nodule R22.1 [facility] [address] [place] [address] [id number] Jun, Acute gastritis without hemorrhage, unspecified gastritis type K29.00 [facility] [address] [place] [address] [id number] May, Chronic nonintractable headache, unspecified headache type R51 [facility] [address] [place] [address] [id number] Apr, Subacute frontal sinusitis J01.10 and Chronic nonintractable headache, unspecified headache type R51 [facility] [address] [place] [place] [address] [id number] Apr, [facility] [address] [id number] Mar, Encounter for immunization Z23 [facility] [place] [address] [place] [id number] 30 Feb, 2018 Primary insomnia F51.01 [facility] [address] [place] [address] [id number] Feb, Primary insomnia F51.01 [facility] [address] [place] [address] [id number] 07 Feb, 2018 Mucous cyst of nasal sinus J34.1 [facility] [address] [place] [address] [id number] Jan, [facility] [address] [address] Dec, [facility] [address] [address] Dec, Primary insomnia F51.01 ; Anxiety F41.9 and Menopausal hot flushes N95.1 [facility] [address] [address] October, Dry mouth, unspecified R68.2 ; Pharyngitis, unspecified etiology J02.9 and Primary insomnia F51.[address] [address] October, [facility] [address] [address] Sep, [facility] [address] [address] Sep, Hemoptysis R04.2 [facility] [address] [address] Sep, Primary insomnia F51.[address] [address] Sep, Adverse effect of drug, initial encounter T88.7[facility] [address] [place] [phone] Aug, Adverse effect of drug, initial encounter T88.7[facility] [address] [place] [phone] Aug, Primary insomnia F51.01 [facility] [address] [address] Jul, [facility] [place] [address] [place] [address] Jul, Primary insomnia F51.01 [address] [address] Jul, [facility] [address] [address] Jul, Atrial tachycardia I47.[address] [facility] [address] [address] Jul, [facility] [address] [address] Jun, Flu-like symptoms R68.89 and Chronic obstructive pulmonary disease, unspecified COPD type J44.9 [facility] [address] [address] Jun, [facility] [address] [address] Jun, [facility] [address] [address] Jun, [facility] [address] [address] Jun, Epigastric pain R10.13 ; Diarrhea, unspecified type R19.7 and Non-intractable vomiting without nausea, unspecified vomiting type R11.11 [address] [address] May, [facility] [address] [address] May, Chronic nonintractable headache, unspecified headache type R51 [facility] [place] [address] [place] [address] May, [facility] [place] [address] [place] [phone] 04 May, 2017 Essential hypertension I10 ; Thyroiditis E06.9 and Nonintractable episodic headache, unspecified headache type R51 [facility] [place] [address] [place] [address] 18 Feb, 2017 Dyslipidemia E78.5 ; Vitamin D deficiency E55.9 and Atherosclerosis of left carotid artery I65.22 [facility] [place] [address] [place] [phone] Jan, [facility] [address] [facility] [id number] [place] [address] Dec, [facility] [place] [address] [place] [address] Dec, Atrial tachycardia I47.1 ; History of thyroidectomy E89.0 ; Primary insomnia F51.01 and Tobacco use Z72.0 [facility] [place] [address] [place] [address] October, Galactorrhea O92.6 [facility] [place] [address] [place] [address] October, [facility] [address] [address] October, [facility] [address] [address] October, [facility] [address] [address] October, Cough R05 and Other chest pain R07.89 [facility] [address] [address] Sep, Dysuria R30.0 ; Acute cystitis without hematuria N30.00 and Chest tightness or pressure R07.89 [facility] [place] [address] [place] [address] Sep, [facility] [address] [address] Sep, Acute bilateral low back pain without sciatica M54.5 [facility] [place] [address] [place] [address] Aug, Dermatitis L30.9 ; Other insomnia G47.09 and Anxiety F41.9 [facility] [address] [place] [address] Aug, [facility] [place] [address] [place] [phone] Aug, Hypertension I10 ; Dyslipidemia E78.5 and Vitamin D deficiency E55.9 [facility] [place] [address] [place] [address] Jun, Anxiety F41.9 and Hypertension I10 [facility] [address] [facility] [id number] [place] [address] Jun, [facility] [place] [address] [place] [address] Jun, Anxiety F41.9 and Hypertension I10 [facility] [place] [address] [place] [address] Jun, [facility] [place] [address] [place] [address] May, [facility] [place] [address] [place] [address] May, Acute upper back pain M54.9 and Hypertension I10 [facility] [place] [address] [place] [address] Apr, [facility] [place] [address] [place] [address] Apr, Mid-back pain, acute M54.9 ; Dyslipidemia E78.5 and Hypertension I10 [facility] [place] [address] [place] [address] Apr, [facility] [place] [address] [place] [address] Apr, [facility] [place] [address] [place] [phone] Feb, Familial hypercholesterolemia E78.0 ; Occlusion and stenosis of left carotid artery I65.22 and Vitamin D deficiency E55.[address] [address] Feb, [address] [address] Feb, Fever, unspecified fever cause R50.9 and Acute non-recurrent maxillary sinusitis J01.[address] [address] Jan, [address] [address] Jan, [address] [address] Jan, Nodule of neck R22.1 and Night sweats R61 [address] [address] Dec, [address] [address] Dec, [address] [address] Nov, [address] [address] Nov, [address] [address] October, Acute upper respiratory infection, unspecified J06.9 ; Other viral agents as the cause of diseases classified elsewhere B97.89 and Calculus of gallbladder without cholecystitis without obstruction K80.[address] [address] Sep, Insomnia, unspecified type G47.00 ; Hypertension I10 and Elevated LFTs R79.[address] [address] Sep, Bleeding after intercourse N93.0 and Dysuria R30.[address] [address] Aug, Dysuria R30.0 and Pyuria N39.[address] [address] Aug, Hypertension I10 ; Insomnia, unspecified type G47.00 and 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 [address] 12 Jul, 2015 Pain of upper extremity M79.603 ; Hypertension I10 and Pure hypercholesterolemia E78.[address] [address] 09 Jul, 2015 Physical exam, pre-employment Z02.1 ; Visit for TB skin test Z11.1 ; Facial rash R21 and 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 [address] 04 Jul, 2015 Other and unspecified hyperlipidemia E78.5 ; Vitamin D deficiency E55.9 and Borderline abnormal thyroid function test R94.[address] [address] Jun, 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 ; Dyslipidemia E78.5 ; Dyspnea on exertion R06.09 ; Family history of cardiovascular disease Z82.49 and Borderline abnormal thyroid function test R94.[address] [address] May, Other emphysema J43.8 ; Smoking F17.200 and Tobacco abuse counseling Z71.[address] [address] May, Cough R05 and Other emphysema J43.[address] [address] Apr, [address] [address] Apr, Skin lesion of back L98.9 and Skin lesion L98.[address] [address] Apr, Skin lesion of back L98.9 and Hot flashes N95.[address] [address] Mar, Bronchitis J40 [address] [address] Mar, Acute pharyngitis, unspecified J02.9 and Upper respiratory infection with cough and congestion J06.[address] [address] Mar, Bronchitis J40 ; Shortness of breath R06.02 ; Encounter for screening mammogram for breast cancer Z12.31 and Yeast infection B37.[address] [address] Jan, Other and unspecified hyperlipidemia 272.4 and Hypothyroidism 244.[address] [address] Dec, [address] [address] Nov, Diarrhea 787.91 and Nausea 787.[address] [address] October, Other and unspecified hyperlipidemia 272.[address] [address] October, Lumbago 724.2 [place] [id number] [place] [address] Sep, [place] [id number] [place] [address] Sep, [address] [address] Aug, [address] [address] Aug, [address] [address] Jun, [place] [id number] [place] [address] Jun, [address] [address] May, [facility] [address] [id number] [address] May, [facility] [place] [address] [place] [address] May, [facility] [place] [address] [place] [address] Apr, [facility] [address] [id number], [place] [address] Apr, [facility] [place] [address] [place] [address] Mar, [facility] [id number] [place] [address] Mar, [facility] [place] [address] [place] [address] Mar, [facility] [address], [place] [address] Mar, [facility] [id number], [place] [address] Mar, [facility] [place] [address] [place] [address] Mar, [facility] [place] [address] [place] [address] Feb, [facility] [id number], [place] [address] Feb, [facility] [place] [address] [place] [address] Jan, [facility] [id number], [place] [address] Jan, [facility] [id number], [place] [address] Jan, [facility] [id number], [place] [address] Jan, [facility] [place] [address] [place] [address] Jan, [facility] [address] [facility] [id number] [place] [address] Jan, [facility] [place] [address] [facility] [place] [address] Dec, [facility] [address] [facility] [id number] [place] [address] Dec, [facility] [address] [facility] [id number] [place] [address] Dec, [facility] [address] [facility] [id number] [place] [address] Dec, [facility] [place] [address] [place] [address] Dec, [facility] [place] [address] [place] [address] Dec, [facility] [id number], [place] [address] Dec, [facility] [place] [address] [facility] [place] [address] October, [facility] [id number] [address] October, [facility] [id number], [place] [address] October, [facility] [place] [address] [facility] [place] [address] Sep, [facility] [place] [facility] [id number], [place] [address] Sep, [facility] [place] [address] [place] [address] Sep, [facility] [place] [facility] [id number], [place] [address] Sep, [facility] [place] [facility] [id number] [place] [address] Aug, [facility] [place] [address] [place] [address] Aug, [facility] [id number], [place] [address] Jun, [facility] [id number], [place] [address] Jun, [facility] [place] [address] Jun, [facility] [place] [address] May, [facility] [id number], [place] [address] May, [facility] [address], [place] [address] May, [facility] [address] [place] [address] May, [facility] [address] [place] [address] Apr, [facility] [id number], [place] [address] Apr, [facility] [id number], [place] [address] Feb, [facility] [address] [place] [address] 17 Feb, 2013 IMMUNIZATIONS No Known Immunizations SOCIAL HISTORY Never Assessed REASON FOR VISIT PLAN OF CARE VITAL SIGNS MEDICATIONS No Known Medications RESULTS No Results PROCEDURES Procedure Date Ordered Result Body Site ASSAY OF VITAMIN D May 23, 2014 VENIPUNCT, ROUTINE* May 23, 2014 C-REACTIVE PROTEIN May 23, 2014 ASSAY OF BLOOD/URIC ACID May 23, 2014 FIBRINOGEN May 23, 2014 ASSAY THYROID STIM HORMONE May 23, 2014 ASSAY OF MAGNESIUM May 23, 2014 GLYCATED HEMOGLOBIN TEST May 23, 2014 ASSAY OF CK (CPK) May 23, 2014 LIPID PANEL May 23, 2014 ASSAY OF LIPOPROTEIN(A) May 23, 2014 COMPREHEN METABOLIC PANEL May 23, 2014 COMPLETE CBC W/AUTO DIFF WBC May 23, 2014 INSTRUCTIONS MEDICATIONS ADMINISTERED No Known Medications [...]
--- OUTSIDE RECORDS SUMMARY | 2019-04-01 10:34 | XMS REPORT ---
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 52291821 Problem Family history of cardiovascular disease Z82.49 Active 598733361 Problem Primary insomnia F51.01 Active 7976009 Problem Other insomnia G47.09 Active 995631590 Problem Facial rash R21 Active 842738501 Problem Other and unspecified hyperlipidemia E78.5 Active 97610384 Problem Insomnia, unspecified type G47.00 Active 857963871 Problem Hypertension I10 Active 86421627 Problem Familial hypercholesterolemia E78.0 Active 196095797 Problem Elevated LFTs R79.89 Active 186481506 Problem Anxiety F41.9 Active 59327646 Problem Gastroparesis K31.84 Active 635964743 Problem Atrial tachycardia I47.1 Active 805052110 Problem History of thyroidectomy E89.0 Active 313534570 Problem Thyroiditis E06.9 Active 92879254 Problem Chronic obstructive pulmonary disease with acute lower respiratory infection J44.0 Active 980052855 Problem Dyslipidemia E78.5 Active 756711907 Problem Chronic obstructive pulmonary disease with acute lower respiratory infection J44.0 Active 923341387 Problem Dyspnea on exertion R06.09 Active 25408915 Problem Vitamin D deficiency E55.9 Active 46653339 Problem Essential hypertension I10 Active 66561156 Problem Chronic obstructive pulmonary disease, unspecified COPD type J44.9 Active 79439355 Problem Menopausal hot flushes N95.1 Active 834969635 Problem COPD with exacerbation J44.1 Active 234074553 ALLERGIES No Information ENCOUNTERS Encounter Location Date Diagnosis [facility] [address] [place] [address] Jan, Chronic obstructive pulmonary disease with acute lower respiratory infection J44.0 ; Hypertension I10 and Dyslipidemia E78.5 [facility] [address] [place] [address] Dec, [facility] [address] [place] [address] Dec, [facility] [address] [place] [address] Dec, Right lower quadrant pain R10.31 [facility] [address] [place] [address] October, COPD with exacerbation J44.1 and Acute left-sided thoracic back pain M54.6 [facility] [address] [place] [address] Sep, [facility] [address] [place] [address] Sep, [facility] [address] [address] Sep, [facility] [address] [place] [address] Sep, Smoking F17.200 and Upper respiratory infection with cough and congestion J06.9 [facility] [address] [place] [address] Sep, Infiltrate noted on imaging study R93.89 [facility] [address] [place] [address] Sep, Rib pain R07.81 [facility] [address] [place] [address] Aug, Rib pain R07.81 [facility] [address] [place] [address] Aug, [facility] [address] [place] [address] Aug, [facility] [address] [place] [address] Aug, [facility] [address] [place] [address] Aug, [facility] [address] [place] [address] Aug, Cough R05 [facility] [address] [place] [address] Aug, Right hand pain M79.641 and Atypical pigmented skin lesion L81.9 [facility] [address] [place] [address] Aug, [facility] [address] [place] [address] Aug, De Quervain's disease (radial styloid tenosynovitis) M65.4 and Atypical mole D22.9 [facility] [address] [place] [address] Jul, Cough R05 [facility] [address] [place] [address] Jun, Upper respiratory tract infection, unspecified type J06.9 [facility] [address] [place] [address] Jun, Neck pain on left side M54.2 [facility] [address] [facility] [id number] [address] Jun, [facility] [address] [place] [address] Jun, Neck pain on left side M54.2 and Neck nodule R22.1 [facility] [address] [place] [address] Jun, Acute gastritis without hemorrhage, unspecified gastritis type K29.00 [facility] [address] [place] [address] May, Chronic nonintractable headache, unspecified headache type R51 [facility] [address] [address] Apr, Subacute frontal sinusitis J01.10 and Chronic nonintractable headache, unspecified headache type R51 [facility] [address] [place] [address] Apr, [facility] [address] [place] [address] Mar, Encounter for immunization Z23 [address] [place] [address] 30 Feb, 2018 Primary insomnia F51.01 [facility] [address] [place] [address] 28 Feb, 2018 Primary insomnia F51.01 [facility] [address] [place] [address] 07 Feb, 2018 Mucous cyst of nasal sinus J34.1 [facility] [address] [place] [address] Jan, [facility] [address] [place] [address] Dec, [facility] [address] [place] [address] Dec, Primary insomnia F51.01 ; Anxiety F41.9 and Menopausal hot flushes N95.1 [facility] [address] [place] [address] October, Dry mouth, unspecified R68.2 ; Pharyngitis, unspecified etiology J02.9 and Primary insomnia F51.01 [facility]iran[facility]IP [address] [place] [address] October, k[facility]an[facility]CSKOR[facility] [address] [address] Sep, LenyCSKOR[facility] [address] [address] Sep, Hemoptysis R04.2 [facility] [address] [place] [address] 16 Sep, 2017 Primary insomnia F51.[address] [address] [address] 09 Sep, 2017 Adverse effect of drug, initial encounter T88.7XXA AnaCSKORINA [address] [place] [address] Aug, Adverse effect of drug, initial encounter T88.7[facility] [address] [place] [address] Aug, Primary insomnia F51.01 [facility] [address] [place] [address] Jul, [facility] [address] [place] [address] Jul, Primary insomnia F51.01 [address] [address] Jul, [facility] [address] [place] [address] Jul, Atrial tachycardia I47.1 [facility] [address] [place] [address] Jul, [facility] [place] [address] [place] [address] Jun, Flu-like symptoms R68.89 and Chronic obstructive pulmonary disease, unspecified COPD type J44.9 [facility] [address] [place] [address] Jun, [facility] [address] [address] Jun, [facility] [address] [place] [address] Jun, [facility] [address] [address] Jun, Epigastric pain R10.13 ; Diarrhea, unspecified type R19.7 and Non-intractable vomiting without nausea, unspecified vomiting type R11.11 [address] [address] May, [facility] [address] [place] [address] May, Chronic nonintractable headache, unspecified headache type R51 [facility] [place] [address] [place] [address] 06 May, 2017 [facility] [address] [place] [address] May, Essential hypertension I10 ; Thyroiditis E06.9 and Nonintractable episodic headache, unspecified headache type R51 [facility] [address] [address] Feb, Dyslipidemia E78.5 ; Vitamin D deficiency E55.9 and Atherosclerosis of left carotid artery I65.[address] [address] Jan, [facility] [address] [facility] [id number] [place] [address] Dec, [address] [address] Dec, Atrial tachycardia I47.1 ; History of thyroidectomy E89.0 ; Primary insomnia F51.01 and Tobacco use Z72.[address] [address] October, Galactorrhea O92.[address] [address] October, [facility] [address] [address] October, [address] [address] October, [address] [address] October, Cough R05 and Other chest pain R07.[address] [address] Sep, Dysuria R30.0 ; Acute cystitis without hematuria N30.00 and Chest tightness or pressure R07.[address] [address] Sep, [facility] [address] [address] Sep, Acute bilateral low back pain without sciatica M54.[address] [address] Aug, Dermatitis L30.9 ; Other insomnia G47.09 and Anxiety F41.9 [facility] [address] [place] [address] Aug, [facility] [address] [place] [address] Aug, Hypertension I10 ; Dyslipidemia E78.5 and Vitamin D deficiency E55.9 [facility] [address] [place] [address] Jun, Anxiety F41.9 and Hypertension I10 [facility] [address] [facility] [id number] [place] [address] Jun, [facility] [address] [place] [address] Jun, Anxiety F41.9 and Hypertension I10 [facility] [address] [place] [address] Jun, [facility] [address] [place] [address] May, [facility] [address] [place] [address] May, Acute upper back pain M54.9 and Hypertension I10 [facility] [address] [place] [address] Apr, [facility] [address] Apr, Mid-back pain, acute M54.9 ; Dyslipidemia E78.5 and Hypertension I10 [facility] [address] [place] [address] Apr, [facility] [address] [place] [address] Apr, [facility] [address] [place] [address] Feb, Familial hypercholesterolemia E78.0 ; Occlusion and stenosis of left carotid artery I65.22 and Vitamin D deficiency E55.9 [facility] [address] [place] [address] Feb, [facility] [address] [address] Feb, Fever, unspecified fever cause R50.9 and Acute non-recurrent maxillary sinusitis J01.[address] [address] Jan, [address] [address] Jan, [address] [address] Jan, Nodule of neck R22.1 and Night sweats R[address] [address] Dec, [address] [address] Dec, [address] [address] Nov, [address] [address] Nov, [address] [address] October, Acute upper respiratory infection, unspecified J06.9 ; Other viral agents as the cause of diseases classified elsewhere B97.89 and Calculus of gallbladder without cholecystitis without obstruction K80.[address] [address] Sep, Insomnia, unspecified type G47.00 ; Hypertension I10 and Elevated LFTs R79.[address] [address] Sep, Bleeding after intercourse N93.0 and Dysuria R30.[address] [address] Aug, Dysuria R30.0 and Pyuria N39.[address] [address] Aug, Hypertension I10 ; Insomnia, unspecified type G47.00 and 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 [place] [address] 12 Jul, 2015 Pain of upper extremity M79.603 ; Hypertension I10 and Pure hypercholesterolemia E78.[address] [address] 09 Jul, 2015 Physical exam, pre-employment Z02.1 ; Visit for TB skin test Z11.1 ; Facial rash R21 and 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 [address] 04 Jul, 2015 Other and unspecified hyperlipidemia E78.5 ; Vitamin D deficiency E55.9 and Borderline abnormal thyroid function test R94.[address] [address] Jun, 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 ; Dyslipidemia E78.5 ; Dyspnea on exertion R06.09 ; Family history of cardiovascular disease Z82.49 and Borderline abnormal thyroid function test R94.[address] [address] May, Other emphysema J43.8 ; Smoking F17.200 and Tobacco abuse counseling Z71.[address] [address] May, Cough R05 and Other emphysema J43.[address] [address] Apr, [address] [address] Apr, Skin lesion of back L98.9 and Skin lesion L98.[address] [address] 03 Apr, 2015 Skin lesion of back L98.9 and Hot flashes N95.[address] [address] Mar, Bronchitis J40 [address] [address] 09 Mar, 2015 Acute pharyngitis, unspecified J02.9 and Upper respiratory infection with cough and congestion J06.[address] [address] Mar, Bronchitis J40 ; Shortness of breath R06.02 ; Encounter for screening mammogram for breast cancer Z12.31 and Yeast infection B37.[address] [address] Jan, Other and unspecified hyperlipidemia 272.4 and Hypothyroidism 244.[address] [address] Dec, [address] [address] Nov, Diarrhea 787.91 and Nausea 787.[address] [address] October, Other and unspecified hyperlipidemia 272.[address] [address] October, Lumbago 724.2 [place] [id number] [place] [address] Sep, [address] [address] Sep, [place] [id number] [place] [address] Aug, [address] [address] Aug, [address] [address] Jun, [place] [id number] [place] [address] Jun, [address] [address] May, [place] [id number] [place] [address] May, [address] [address] May, [facility] [address] [place] [address] Apr, [facility] [address] [id number] [address] Apr, [facility] [place] [address] [place] [address] Mar, [facility] [place] [facility] [address] [id number] [address] Mar, [facility] [place] [address] [place] [address] Mar, [facility] [address] [id number] [place] [address] Mar, [facility] [address] [id number] [address] Mar, [facility] [address] [facility] [address] Mar, [facility] [address] [place] [address] Feb, [facility] [address] [id number] [address] Feb, [facility] [address] [place] [address] Jan, [facility] [address] [id number] [address] Jan, [facility] [place] [facility] [address] [id number] [address] Jan, [facility] [address] [id number] [address] Jan, [facility] [address] [facility] [place] [address] Jan, [facility] [place] [facility] [address] [id number] [address] Jan, [facility] [place] [address] [place] [address] Dec, [facility] [place] [facility] [address] [facility] [id number] [address] Dec, [facility] [place] [facility] [address] [facility] [id number] [place] [address] Dec, [facility] [place] [facility] [address] [facility] [id number] [place] [address] Dec, [facility] [place] [address] [place] [address] Dec, [facility] [address] [place] [address] Dec, [facility] [place] [facility] [address] [facility] [id number] [place] [address] Dec, [facility] [place] [address] [place] [address] October, [facility] [place] [facility] [address] [id number] [address] October, [facility] [place] [facility] [address] [id number] [address] October, [facility] [address] [place] [address] Sep, [facility] [place] [facility] [address] [id number] [address] Sep, [facility] [place] [address] [place] [address] Sep, [facility] [place] [facility] [address] [facility] [id number] [address] Sep, [facility] [place] [facility] [address] [id number] [address] Aug, [facility] [address] [place] [address] Aug, [facility] [place] [facility] [address] [facility] [id number] [place] [address] Jun, [facility] [address] [id number] [address] Jun, [facility] [address] [place] [address] Jun, [facility] [place] [address] [place] [address] May, [place] [id number] [address] May, [id number] [place] [address] May, [facility] [place] [place] [address] May, [facility] [address] [place] [address] Apr, [place] [id number] [address] Apr, [place] [id number] [address] Feb, [facility] [address] [place] [address] Feb, IMMUNIZATIONS No Known Immunizations SOCIAL HISTORY Never Assessed REASON FOR VISIT PLAN OF CARE VITAL SIGNS Height 65 in 2014-04-08 Weight 137.5 lbs 2014-04-08 Temperature 97.7 degrees Fahrenheit 2014-04-08 Heart Rate 75 bpm 2014-04-08 Respiratory Rate 18 2014-04-08 Blood pressure systolic 118 mmHg 2014-04-08 Blood pressure diastolic 78 mmHg 2014-04-08 MEDICATIONS Unknown Medications RESULTS No Results PROCEDURES [...]
--- OUTSIDE RECORDS SUMMARY | 2019-04-01 10:34 | XMS REPORT ---
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 Name Role Phone Migration, Doctor Unavailable Unavailable PROBLEMS Type Condition ICD9-CM Code QXV36-YG Code Onset Dates Condition Status SNOMED Code Problem Hot flashes N95.1 Active 063706851 Problem Smoking F17.200 Active 38691251 Problem Skin lesion of back L98.9 Active 42515187 Problem Borderline abnormal thyroid function test R94.6 Active 398547612 Problem Other emphysema J43.8 Active 08329310 Problem Anxiety F41.9 Active 16235313 Problem Gastroparesis K31.84 Active 830101893 Problem Vitamin D deficiency E55.9 Active 67689073 Problem 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 01294229 Problem Facial rash R21 Active 357943282 Problem Other and unspecified hyperlipidemia E78.5 Active 57132632 Problem Insomnia, unspecified type G47.00 Active 986172715 Problem Hypertension I10 Active 19937982 Problem Familial hypercholesterolemia E78.0 Active 467210947 Problem Elevated LFTs R79.89 Active 515960392 Problem Other insomnia G47.09 Active 793185357 Problem Primary insomnia F51.01 Active 0398228 Problem Atrial tachycardia I47.1 Active 629035287 Problem Menopausal hot flushes N95.1 Active 961782880 Problem Dyspnea on exertion R06.09 Active 74076468 Problem COPD with exacerbation J44.1 Active 663850760 Problem Family history of cardiovascular disease Z82.49 Active 135409498 Problem Dyslipidemia E78.5 Active 219115236 Problem History of thyroidectomy E89.0 Active 541260019 Problem Thyroiditis E06.9 Active 57616397 Problem Essential hypertension I10 Active 57584150 Problem Chronic obstructive pulmonary disease, unspecified COPD type J44.9 Active 34396927 ALLERGIES No Information ENCOUNTERS Encounter Location Date Diagnosis [facility] [address] [place] [address] [place] [address] Dec, [facility] [address] [place] [address] [place] [address] Dec, [facility] [address] [place] [address] [place] [address] Dec, Right lower quadrant pain R10.31 [facility] [address] [place] [address] [place] [address] October, COPD with exacerbation J44.1 and Acute left-sided thoracic back pain M54.6 [facility] [address] [place] [address] [place] [address] Sep, [facility] [address] [place] [address] [place] [address] Sep, [facility] [address] [place] [address] Sep, [facility] [address] [place] [address] [place] [address] Sep, Smoking F17.200 and Upper respiratory infection with cough and congestion J06.9 [facility] [address] [place] [address] Sep, Infiltrate noted on imaging study R93.89 [facility] [address] [place] [address] [place] [address] Sep, Rib pain R07.81 [facility] [address] [place] [address] [place] [address] Aug, Rib pain R07.81 [facility] [address] [place] [address] [place] [address] Aug, [facility] [address] [place] [address] [place] [address] Aug, [facility] [address] [place] [address] [place] [address] Aug, [facility] [address] [place] [address] [place] [address] Aug, [facility] [address] [place] [address] [place] [address] Aug, Cough R05 [facility] [address] [place] [address] Aug, Right hand pain M79.641 and Atypical pigmented skin lesion L81.9 [facility] [address] [place] [address] [place] [address] Aug, [facility] [address] [place] [address] Aug, De Quervain's disease (radial styloid tenosynovitis) M65.4 and Atypical mole D22.9 [facility] [address] [place] [address] 20 Jul, 2018 Cough R05 [facility] [address] [place] [address] [place] [address] Jun, Upper respiratory tract infection, unspecified type J06.9 [facility] [address] [place] [address] Jun, Neck pain on left side M54.2 [facility] [address] [facility] [id number] [place] [address] Jun, [facility] [address] [place] [address] Jun, Neck pain on left side M54.2 and Neck nodule R22.1 [facility] [address] [place] [address] [place] [address] Jun, Acute gastritis without hemorrhage, unspecified gastritis type K29.00 [facility] [address] [place] [address] May, Chronic nonintractable headache, unspecified headache type R51 [facility] [address] [place] [address] Apr, Subacute frontal sinusitis J01.10 and Chronic nonintractable headache, unspecified headache type R51 [facility] [address] [place] [address] Apr, [facility] [address] [place] [address] Mar, Encounter for immunization Z23 [facility] [place] [address] [place] [address] 30 Feb, 2018 Primary insomnia F51.01 [facility] [address] [place] [address] [place] [address] Feb, Primary insomnia F51.01 [facility] [address] [place] [address] [place] [address] 07 Feb, 2018 Mucous cyst of nasal sinus J34.1 [facility] [address] [place] [address] [place] [address] Jan, [facility] [place] [address] [place] [address] Dec, Vin [place] [address] [place] [address] Dec, Primary insomnia F51.01 ; Anxiety F41.9 and Menopausal hot flushes N95.1 [facility] [place] [address] [place] [address] October, Dry mouth, unspecified R68.2 ; Pharyngitis, unspecified etiology J02.9 and Primary insomnia F51.01 [facility] [place] [address] [place] [address] October, [facility] [place] [address] [place] [address] Sep, [facility] [address] [address] Sep, Hemoptysis R04.[address] [address] [address] Sep, Primary insomnia F51.01 [facility] [place] [address] [place] [address] Sep, Adverse effect of drug, initial encounter T88.7XXA [facility]ao [place] [address] [place] [address] Aug, Adverse effect of drug, initial encounter T88.7XXA [facility] [place] [address] [place] [address] Aug, Primary insomnia F51.01 [facility] [place] [address] [place] [address] Jul, [facility] [place] [address] [place] [address] Jul, Primary insomnia F51.01 [facility] [address] [facility] [id number], [place] [address] 16 Jul, 2017 [facility] [place] [address] [place] [address] Jul, Atrial tachycardia I47.1 [facility] [place] [address] [place] [address] Jul, Vin [address] [address] Jun, Flu-like symptoms R68.89 and Chronic obstructive pulmonary disease, unspecified COPD type J44.9 [facility] [place] [address] [place] [address] Jun, Thao [address] [address] Jun, Thao [address] [address] Jun, Vin [address] [address] Jun, Epigastric pain R10.13 ; Diarrhea, unspecified type R19.7 and Non-intractable vomiting without nausea, unspecified vomiting type R11.[address] [id number] [address] 15 May, [address] [address] May, Chronic nonintractable headache, unspecified headache type R51 [address] [address] May, [facility] [address] [address] 04 May, 2017 Essential hypertension I10 ; Thyroiditis E06.9 and Nonintractable episodic headache, unspecified headache type R51 [address] [address] Feb, Dyslipidemia E78.5 ; Vitamin D deficiency E55.9 and Atherosclerosis of left carotid artery I65.[address] [address] Jan, [address] [facility] [id number] [place] [address] Dec, [facility] [address] [address] Dec, Atrial tachycardia I47.1 ; History of thyroidectomy E89.0 ; Primary insomnia F51.01 and Tobacco use Z72.[address] [address] October, Galactorrhea O92.6 [facility] [address] [address] October, [facility] [address] [address] October, [facility] [address] [address] October, [facility] [address] [address] October, Cough R05 and Other chest pain R07.[address] [address] Sep, Dysuria R30.0 ; Acute cystitis without hematuria N30.00 and Chest tightness or pressure R07.[address] [address] Sep, [facility] [address] [address] Sep, Acute bilateral low back pain without sciatica M54.[address] [address] Aug, Dermatitis L30.9 ; Other insomnia G47.09 and Anxiety F41.[address] [address] Aug, [address] [address] Aug, Hypertension I10 ; Dyslipidemia E78.5 and Vitamin D deficiency E55.[address] [address] Jun, Anxiety F41.9 and Hypertension I10 [facility] [address] [facility] [id number] [place] [address] Jun, [facility] [place] [address] [place] [address] Jun, Anxiety F41.9 and Hypertension I10 [facility] [place] [address] [place] [address] Jun, [facility] [place] [address] [place] [address] May, [facility] [address] [place] [address] May, Acute upper back pain M54.9 and Hypertension I10 [facility]erto[facility] [place] [address] [place] [address] Apr, [facility] [place] [address] [place] [address] Apr, Mid-back pain, acute M54.9 ; Dyslipidemia E78.5 and Hypertension I10 [facility] [place] [address] [place] [address] Apr, [facility] [place] [address] [place] [address] Apr, [facility] [place] [address] [place] [address] Feb, Familial hypercholesterolemia E78.0 ; Occlusion and stenosis of left carotid artery I65.22 and Vitamin D deficiency E55.9 [facility] [place] [address] [place] [address] Feb, [facility] [place] [address] [place] [address] Feb, Fever, unspecified fever cause R50.9 and Acute non-recurrent maxillary sinusitis J01.00 [facility] [place] [address] [place] [address] Jan, [facility] [place] [address] [place] [address] Jan, [facility] [place] [address] [place] [address] Jan, Nodule of neck R22.1 and Night sweats R61 [address] [address] Dec, [address] [address] Dec, [address] [address] Nov, [address] [address] Nov, [address] [address] October, Acute upper respiratory infection, unspecified J06.9 ; Other viral agents as the cause of diseases classified elsewhere B97.89 and Calculus of gallbladder without cholecystitis without obstruction K80.[address] [address] Sep, Insomnia, unspecified type G47.00 ; Hypertension I10 and Elevated LFTs R79.[address] [address] Sep, Bleeding after intercourse N93.0 and Dysuria R30.[address] [address] Aug, Dysuria R30.0 and Pyuria N39.[address] [address] Aug, Hypertension I10 ; Insomnia, unspecified type G47.00 and 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 [address] 12 Jul, 2015 Pain of upper extremity M79.603 ; Hypertension I10 and Pure hypercholesterolemia E78.[address] [address] 09 Jul, 2015 Physical exam, pre-employment Z02.1 ; Visit for TB skin test Z11.1 ; Facial rash R21 and 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 [address] 04 Jul, 2015 Other and unspecified hyperlipidemia E78.5 ; Vitamin D deficiency E55.9 and Borderline abnormal thyroid function test R94.[address] [address] 12 Jun, 2015 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 ; Dyslipidemia E78.5 ; Dyspnea on exertion R06.09 ; Family history of cardiovascular disease Z82.49 and Borderline abnormal thyroid function test R94.[address] [address] May, Other emphysema J43.8 ; Smoking F17.200 and Tobacco abuse counseling Z71.[address] [address] May, Cough R05 and Other emphysema J43.[address] [address] Apr, [address] [address] Apr, Skin lesion of back L98.9 and Skin lesion L98.[address] [address] Apr, Skin lesion of back L98.9 and Hot flashes N95.[address] [address] Mar, Bronchitis J40 [address] [address] Mar, Acute pharyngitis, unspecified J02.9 and Upper respiratory infection with cough and congestion J06.[address] [address] Mar, Bronchitis J40 ; Shortness of breath R06.02 ; Encounter for screening mammogram for breast cancer Z12.31 and Yeast infection B37.[address] [address] Jan, Other and unspecified hyperlipidemia 272.4 and Hypothyroidism 244.[address] [place] [address] Dec, [facility] [place] [address] [place] [address] Nov, Diarrhea 787.91 and Nausea 787.02 [facility] [place] [address] [place] [address] October, Other and unspecified hyperlipidemia 272.4 [facility] [place] [address] [place] [address] October, Lumbago 724.2 [facility] [id number] [place] [address] Sep, [facility] [id number] [place] [address] Sep, [facility] [id number] [place] [address] Aug, [facility] [place] [address] [place] [address] Aug, [facility] [place] [address] [place] [address] Jun, [facility] [id number] [place] [address] Jun, [facility] [address], [place] [address] May, [facility] [address], [place] [address] May, [facility] [place] [address] [place] [address] May, [facility] [place] [address] [place] [address] Apr, [facility] [address], [place] [address] Apr, [facility] [place] [address] [place] [address] Mar, [facility] [address] [id number], [place] [address] Mar, [facility] [place] [address] [facility] [place] [address] Mar, [facility] [address] [facility] [id number], [place] [address] Mar, [facility] [address] [id number], [place] [address] Mar, [facility] [place] [address] [facility] [place] [address] Mar, [facility] [place] [address] [facility] [place] [address] Feb, [facility] [address] [id number], [place] [address] Feb, [facility] [place] [address] [facility] [place] [address] Jan, [facility] [id number], [place] [address] Jan, [facility] [id number], [place] [address] Jan, [facility] [address] [id number], [place] [address] Jan, [facility] [place] [address] [facility] [place] [address] Jan, [facility] [address] [id number], [place] [address] Jan, [facility] [place] [address] [facility] [place] [address] Dec, [facility] [address] [facility] [id number], [place] [address] Dec, [facility] [address] [id number], [place] [address] Dec, [facility] [id number], [place] [address] Dec, [facility] [place] [address] [facility] [place] [address] Dec, [facility] [place] [address] [facility] [place] [address] Dec, [facility] [address] [facility] [id number], [place] [address] Dec, [facility] [place] [address] [place] [address] October, [facility] [address] [id number], [place] [address] October, [facility] [address] [id number], [place] [address] October, [facility] [place] [address] [place] [address] Sep, [facility] [address] [id number], [place] [address] Sep, [facility] [place] [address] [place] [address] Sep, [facility] [address] [id number], [place] [address] Sep, [facility] [id number], [place] [address] Aug, [facility] [place] [address] [place] [address] Aug, [facility] [address] [id number], [place] [address] Jun, [facility] [id number], [place] [address] Jun, [facility] [place] [address] [place] [address] Jun, [facility] [place] [address] [place] [address] May, [facility] [address] [id number], [place] [address] May, [facility] [address] [facility] [id number], [place] [address] May, [facility] [address] [place] [address] May, [facility] [address] [place] [address] Apr, [facility] [address] [facility] [id number], [place] [address] Apr, [facility] [address] [facility] [id number], [place] [address] Feb, [facility] [address] [place] [address] Feb, IMMUNIZATIONS No Known Immunizations SOCIAL HISTORY Never Assessed REASON FOR VISIT PLAN OF CARE VITAL SIGNS Height 65 in 2014-02-18 Weight 143.5 lbs 2014-02-18 Temperature 98.1 degrees Fahrenheit 2014-02-18 Heart Rate 80 bpm 2014-02-18 Respiratory Rate 18 2014-02-18 Blood pressure systolic 124 mmHg 2014-02-18 Blood pressure diastolic 80 mmHg 2014-02-18 MEDICATIONS Unknown Medications RESULTS No Results PROCEDURES [...] [facility] x2 Surgical History bladder repair 08/2018 Hospitalization History [facility] x2 Hospitalization History Hysterectomy Hospitalization History Thyroidectomy
--- OUTSIDE RECORDS SUMMARY | 2019-04-01 10:35 | XMS REPORT ---
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 Name Role Phone FAB MELENDREZ Unavailable PROBLEMS Type Condition ICD9-CM Code [id number] Code Onset Dates Condition Status SNOMED Code Problem Hot flashes N95.1 Active 422302013 Problem Smoking F17.200 Active 43827146 Problem Skin lesion of back L98.9 Active 97382002 Problem Borderline abnormal thyroid function test R94.6 Active 828295078 Problem Other emphysema J43.8 Active 32969138 Problem Anxiety F41.9 Active 83990270 Problem Gastroparesis K31.84 Active 568552984 Problem Vitamin D deficiency E55.9 Active 48571019 Problem 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 57894042 Problem Facial rash R21 Active 779148879 Problem Other and unspecified hyperlipidemia E78.5 Active 45644533 Problem Insomnia, unspecified type G47.00 Active 715207725 Problem Hypertension I10 Active 75478275 Problem Familial hypercholesterolemia E78.0 Active 406687270 Problem Elevated LFTs R79.89 Active 097652278 Problem Other insomnia G47.09 Active 400503807 Problem Primary insomnia F51.01 Active 8092347 Problem Atrial tachycardia I47.1 Active 109754881 Problem Menopausal hot flushes N95.1 Active 026228450 Problem Dyspnea on exertion R06.09 Active 12703009 Problem COPD with exacerbation J44.1 Active 758124981 Problem Family history of cardiovascular disease Z82.49 Active 485168806 Problem Dyslipidemia E78.5 Active 123777495 Problem History of thyroidectomy E89.0 Active 349396995 Problem Thyroiditis E06.9 Active 42186808 Problem Essential hypertension I10 Active 59085048 Problem Chronic obstructive pulmonary disease, unspecified COPD type J44.9 Active 03979460 ALLERGIES No Information ENCOUNTERS Encounter Location Date Diagnosis [facility] [address] [address] [place] [address] Dec, [facility] [facility] [address] [place] [address], [place] [address] Dec, [facility] [address] [place] [address] [place] [address] Dec, Right lower quadrant pain R10.31 [facility] [address] [place] [address], [place] [address] October, COPD with exacerbation J44.1 and Acute left-sided thoracic back pain M54.6 [facility] [address] [place] [address] [place] [address] Sep, [facility] [address] [place] [place] [address] Sep, [facility] [address] [place] [address] [place] [address] Sep, [facility] [address] [place] [address] [place] [address] Sep, Smoking F17.200 and Upper respiratory infection with cough and congestion J06.9 [facility] [address] [place] [address] [place] [address] Sep, Infiltrate noted on imaging study R93.89 [facility] [address] [place] [address] [place] [address] Sep, Rib pain R07.81 [facility] [address] [place] [address] [place] [address] Aug, Rib pain R07.81 [facility] [address] [place] [address] [place] [address] Aug, [facility] [address] [place] [address] [place] [address] Aug, [facility] [address] [place] [address] [place] [address], [place] [address] Aug, [facility] [address] [place] [address] [place] [address] Aug, [facility] [address] [place] [address] [place] [address] Aug, Cough R05 [facility] [address] [place] [address] [place] [address] Aug, Right hand pain M79.641 and Atypical pigmented skin lesion L81.9 [facility] [address] [place] [address] [place] [address] Aug, [facility] [address] [place] [address] Aug, De Quervain's disease (radial styloid tenosynovitis) M65.4 and Atypical mole D22.9 [facility] [address] [place] [address] Jul, Cough R05 [facility] [address] [place] [address] [place] [address] Jun, Upper respiratory tract infection, unspecified type J06.[address] [facility] [address] [place] [address] Jun, Neck pain on left side M54.2 [facility] [address] [facility] [id number] [place] [address] Jun, [facility] [address] [place] [address] Jun, Neck pain on left side M54.2 and Neck nodule R22.1 [facility] [address] [place] [address] Jun, Acute gastritis without hemorrhage, unspecified gastritis type K29.[address] [facility] [address] [place] [address] May, Chronic nonintractable headache, unspecified headache type R51 [facility] [address] [place] [address] Apr, Subacute frontal sinusitis J01.10 and Chronic nonintractable headache, unspecified headache type R51 [facility] [address] [place] [address] Apr, [facility] [address] [place] [address] Mar, Encounter for immunization Z23 [facility] [place] [address] [place] [address] Feb, Primary insomnia F51.01 [facility] [address] [place] [address] Feb, Primary insomnia F51.01 [facility] [address] [place] [address] [place] [address] 07 Feb, 2018 Mucous cyst of nasal sinus J34.1 [facility] [address] [place] [address] [place] [address] 24 Jan, 2018 [facility] [place] [address] [place] [address] Dec, [facility] [place] [address] [place] [address] Dec, Primary insomnia F51.01 ; Anxiety F41.9 and Menopausal hot flushes N95.1 [facility] [place] [address] [place] [address] October, Dry mouth, unspecified R68.2 ; Pharyngitis, unspecified etiology J02.9 and Primary insomnia F51.01 [facility] [place] [address] [place] [address] October, [facility] [address] [address] Sep, [facility] [address] [address] Sep, Hemoptysis R04.[address] [address] 16 Sep, 2017 Primary insomnia F51.01 [facility] [place] [address] [place] [address] Sep, Adverse effect of drug, initial encounter T88.7XXA [facility] [place] [address] [place] [address] Aug, Adverse effect of drug, initial encounter T88.7XXA [facility] [place] [address] [place] [address] Aug, Primary insomnia F51.01 [facility] [place] [address] [place] [address] Jul, [facility] [place] [address] [place] [address] Jul, Primary insomnia F51.01 [facility] [address] [facility] [id number] [address] 16 Jul, [address] [address] Jul, Atrial tachycardia I47.1 [facility] [address] [address] Jul, [facility] [address] [address] Jun, Flu-like symptoms R68.89 and Chronic obstructive pulmonary disease, unspecified COPD type J44.9 [facility] [address] [address] Jun, [facility] [address] [address] Jun, [facility] [address] [address] Jun, [facility] [address] [address] Jun, Epigastric pain R10.13 ; Diarrhea, unspecified type R19.7 and Non-intractable vomiting without nausea, unspecified vomiting type R11.11 [place] [id number] [address] 15 May, 2017 [facility] [address] [address] May, Chronic nonintractable headache, unspecified headache type R51 [facility] [address] [address] 06 May, 2017 [facility] [address] [address] 04 May, 2017 Essential hypertension I10 ; Thyroiditis E06.9 and Nonintractable episodic headache, unspecified headache type R51 [facility] [address] [address] 18 Feb, 2017 Dyslipidemia E78.5 ; Vitamin D deficiency E55.9 and Atherosclerosis of left carotid artery I65.22 [facility] [place] [address] [place] [address] Jan, [facility] [address] [facility] [id number] [place] [address] Dec, [facility] [address] [address] Dec, Atrial tachycardia I47.1 ; History of thyroidectomy E89.0 ; Primary insomnia F51.01 and Tobacco use Z72.0 [facility] [address] [address] October, Galactorrhea O92.[address] [address] October, [facility] [address] [address] October, [facility] [address] [address] October, [facility] [address] [address] October, Cough R05 and Other chest pain R07.[address] [address] Sep, Dysuria R30.0 ; Acute cystitis without hematuria N30.00 and Chest tightness or pressure R07.[address] [address] Sep, [facility] [address] [address] Sep, Acute bilateral low back pain without sciatica M54.[address] [address] Aug, Dermatitis L30.9 ; Other insomnia G47.09 and Anxiety F41.[address] [address] Aug, [address] [address] Aug, Hypertension I10 ; Dyslipidemia E78.5 and Vitamin D deficiency E55.9 [facility] [place] [address] [place] [address] 07 Jun, 2016 Anxiety F41.9 and Hypertension I10 [facility] [address] [facility] [id number] [place] [address] Jun, [facility] [place] [address] [place] [address] Jun, Anxiety F41.9 and Hypertension I10 [facility] [place] [address] [place] [address] Jun, [facility] [place] [address] [place] [address] May, [facility] [place] [address] [place] [address] May, Acute upper back pain M54.9 and Hypertension I10 [facility] [place] [address] [place] [address] Apr, [facility] [place] [address] [place] [address] Apr, Mid-back pain, acute M54.9 ; Dyslipidemia E78.5 and Hypertension I10 [facility] [place] [address] [place] [address] Apr, [facility] [place] [address] [place] [address] Apr, [facility] [place] [address] [place] [address] Feb, Familial hypercholesterolemia E78.0 ; Occlusion and stenosis of left carotid artery I65.22 and Vitamin D deficiency E55.9 [facility] [place] [address] [place] [address] Feb, [facility] [place] [address] [place] [address] Feb, Fever, unspecified fever cause R50.9 and Acute non-recurrent maxillary sinusitis J01.00 [facility] [place] [address] [place] [address] Jan, [facility] [place] [address] [place] [address] Jan, [facility] [address] [address] Jan, Nodule of neck R22.1 and Night sweats R61 [address] [address] Dec, [address] [address] Dec, [address] [address] Nov, [address] [address] Nov, [address] [address] October, Acute upper respiratory infection, unspecified J06.9 ; Other viral agents as the cause of diseases classified elsewhere B97.89 and Calculus of gallbladder without cholecystitis without obstruction K80.[address] [address] Sep, Insomnia, unspecified type G47.00 ; Hypertension I10 and Elevated LFTs R79.[address] [address] Sep, Bleeding after intercourse N93.0 and Dysuria R30.[address] [address] Aug, Dysuria R30.0 and Pyuria N39.[address] [address] Aug, Hypertension I10 ; Insomnia, unspecified type G47.00 and 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 [address] 12 Jul, 2015 Pain of upper extremity M79.603 ; Hypertension I10 and Pure hypercholesterolemia E78.[address] [address] 09 Jul, 2015 Physical exam, pre-employment Z02.1 ; Visit for TB skin test Z11.1 ; Facial rash R21 and 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 [address] 04 Jul, 2015 Other and unspecified hyperlipidemia E78.5 ; Vitamin D deficiency E55.9 and Borderline abnormal thyroid function test R94.[address] [address] 12 Jun, 2015 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 ; Dyslipidemia E78.5 ; Dyspnea on exertion R06.09 ; Family history of cardiovascular disease Z82.49 and Borderline abnormal thyroid function test R94.[address] [address] May, Other emphysema J43.8 ; Smoking F17.200 and Tobacco abuse counseling Z71.[address] [address] 07 May, 2015 Cough R05 and Other emphysema J43.[address] [address] Apr, [address] [address] Apr, Skin lesion of back L98.9 and Skin lesion L98.[address] [address] Apr, Skin lesion of back L98.9 and Hot flashes N95.[address] [address] Mar, Bronchitis J40 [address] [address] 09 Mar, 2015 Acute pharyngitis, unspecified J02.9 and Upper respiratory infection with cough and congestion J06.[address] [address] Mar, Bronchitis J40 ; Shortness of breath R06.02 ; Encounter for screening mammogram for breast cancer Z12.31 and Yeast infection B37.[address] [address] Jan, Other and unspecified hyperlipidemia 272.4 and Hypothyroidism 244.9 [facility] [place] [address] [place] [address] Dec, [facility] [place] [address] [place] [address] Nov, Diarrhea 787.91 and Nausea 787.02 [facility] [place] [address] [place] [address] October, Other and unspecified hyperlipidemia 272.4 [facility] [place] [address] [place] [address] October, Lumbago 724.2 [facility] [address] [place] [id number] [place] [address] Sep, [facility] [address] [place] [id number] [place] [address] Sep, [facility] [address] [place] [id number] [place] [address] Aug, [facility] [place] [address] [place] [address] Aug, [facility] [place] [address] [place] [address] Jun, [facility] [address] [place] [address] Jun, [facility] [address] [place] [id number] [place] [address] May, [facility] [address] [place] [id number] [place] [address] May, [facility] [place] [address] [place] [address] May, [facility] [place] [address] [place] [address] Apr, [facility] [address] [place] [address] Apr, [facility] [place] [address] [place] [address] Mar, [facility] [address] [place] [id number] [address] Mar, [facility] [place] [address] [place] [facility] [place] [address] Mar, [facility] [address] [id number] [address] Mar, [facility] [address] [place] [address] [id number] [address] Mar, [facility] [place] [address] [place] [facility] [place] [address] Mar, [facility] [place] [address] [place] [address] Feb, [facility] [address]65[address] [address] Feb, [facility] [place] [address] [place] [address] Jan, [facility] [address] [id number] [address] Jan, [facility] [address] [address] Jan, [facility] [address] [id number] [address] Jan, [facility] [place] [address] [place] [facility] [place] [address] Jan, [facility] [address] [id number] [address] Jan, [facility] [place] [address] [place] [address] Dec, [facility] [address] [id number] [address] Dec, [facility] [address] [address] Dec, [facility] [address] [facility] [id number] [address] Dec, [facility] [place] [address] [place] [facility] [place] [address] Dec, [facility] [place] [address] [place] [address] Dec, [facility] [address] [id number] [address] Dec, [facility] [place] [address] [place] [facility] [place] [address] October, [facility] [address] [facility] [id number] [address] October, [facility] [address] [id number] [address] October, [facility] [place] [address] [place] [address] Sep, [facility] [address] [id number] [address] Sep, [facility] [place] [address] [place] [address] Sep, [facility] [address] [facility] [id number] [place] [address] Sep, [facility] [address] [id number] [address] Aug, [facility] [place] [address] [place] [address] Aug, [facility] [address] [facility] [id number] [place] [address] Jun, [facility] [address] [id number] [address] Jun, [facility] [place] [address] [place] [address] Jun, [facility] [place] [address] [place] [address] May, [facility] [address] [facility] [id number] [place] [address] May, [facility] [address] [id number] [address] May, [facility] [address] [place] [address] May, [facility] [place] [address] [place] [address] Apr, [facility] [address] [id number] [address] Apr, [facility] [address] [facility] [id number] [place] [address] Feb, [facility] [address] [place] [address] Feb, IMMUNIZATIONS No Known Immunizations SOCIAL HISTORY [...]
--- OUTSIDE RECORDS SUMMARY | 2019-04-01 10:35 | XMS REPORT ---
Author Author FAB MELENDREZ [facility] [address] Address [address] [place] [address] Care Team Providers Care Warper Tender Name Role Phone FAB MELENDREZ Unavailable PROBLEMS Type Condition ICD9-CM Code FDS50-WZ Code Onset Dates Condition Status SNOMED Code Problem Hot flashes N95.1 Active 607864404 Problem Smoking F17.200 Active 39737015 Problem Skin lesion of back L98.9 Active 95312563 Problem Borderline abnormal thyroid function test R94.6 Active 410545342 Problem Other emphysema J43.8 Active 45148669 Problem Anxiety F41.9 Active 29513599 Problem Gastroparesis K31.84 Active 716058619 Problem Vitamin D deficiency E55.9 Active 04917970 Problem 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 80429012 Problem Facial rash R21 Active 003370226 Problem Other and unspecified hyperlipidemia E78.5 Active 75691163 Problem Insomnia, unspecified type G47.00 Active 428699918 Problem Hypertension I10 Active 59406025 Problem Familial hypercholesterolemia E78.0 Active 760336336 Problem Elevated LFTs R79.89 Active 498158950 Problem Other insomnia G47.09 Active 752540855 Problem Primary insomnia F51.01 Active 3796522 Problem Atrial tachycardia I47.1 Active 637424716 Problem Menopausal hot flushes N95.1 Active 171080895 Problem Dyspnea on exertion R06.09 Active 43576059 Problem COPD with exacerbation J44.1 Active 541842565 Problem Family history of cardiovascular disease Z82.49 Active 096394527 Problem Dyslipidemia E78.5 Active 911256221 Problem History of thyroidectomy E89.0 Active 876827162 Problem Thyroiditis E06.9 Active 34792288 Problem Essential hypertension I10 Active 54349558 Problem Chronic obstructive pulmonary disease, unspecified COPD type J44.9 Active 12273341 ALLERGIES No Information ENCOUNTERS Encounter Location Date Diagnosis [facility] [address] [place] [address] Dec, [facility] [address] [place] [address], [place] [address] Dec, [facility] [address] [place] [address] Dec, Right lower quadrant pain R10.31 [facility] [address] [place] [address], [place] [address] October, COPD with exacerbation J44.1 and Acute left-sided thoracic back pain M54.6 [facility] [address] [place] [address] Sep, [facility] [address] [place] [address] Sep, [facility] [address] [place] [address] Sep, [facility] [address] [place] [address] Sep, Smoking F17.200 and Upper respiratory infection with cough and congestion J06.9 [facility] [address] [place] [address] Sep, Infiltrate noted on imaging study R93.89 [facility] [address] [place] [address] Sep, Rib pain R07.81 [facility] [address] [place] [address] Aug, Rib pain R07.81 [facility] [address] [place] [address] Aug, [facility] [address] [place] [address] Aug, [facility] [address] [place] [address], [place] [address] Aug, [facility] [address] [place] [address] Aug, [facility] [address] [place] [address] [place] [address] Aug, Cough R05 [facility] [address] [place] [address] Aug, Right hand pain M79.641 and Atypical pigmented skin lesion L81.9 [facility] [address] [place] [address] Aug, [facility] [address] [place] [address] Aug, De Quervain's disease (radial styloid tenosynovitis) M65.4 and Atypical mole D22.9 [facility] [address] [place] [address] Jul, Cough R05 [facility] [address] [place] [address] Jun, Upper respiratory tract infection, unspecified type J06.[address] [facility] [address] [place] [address] Jun, Neck pain on left side M54.2 [facility] [address] [facility] [id number] [place] [address] Jun, [facility] [address] [place] [address] Jun, Neck pain on left side M54.2 and Neck nodule R22.1 [facility] [address] [place] [address] Jun, Acute gastritis without hemorrhage, unspecified gastritis type K29.[address] [facility] [address] [place] [address] May, Chronic nonintractable headache, unspecified headache type R51 [facility] [address] [place] [address] Apr, Subacute frontal sinusitis J01.10 and Chronic nonintractable headache, unspecified headache type R51 [facility] [address] [place] [address] Apr, [facility] [address] [place] [address] Mar, [facility]counter for immunization [facility]23 [facility] [place] [address] [place] [address] Feb, Primary insomnia F51.01 [facility] [address] [place] [address] Feb, Primary insomnia F51.01 [facility] [address] [place] [address] 07 Feb, 2018 Mucous cyst of nasal sinus J34.1 [facility] [address] [place] [address] 24 Jan, 2018 [facility] [place] [address] [place] [address] Dec, [facility] [address] [address] [place] [address] Dec, Primary insomnia F51.01 ; Anxiety F41.9 and Menopausal hot flushes N95.1 [facility] [place] [address] [place] [address] October, Dry mouth, unspecified R68.2 ; Pharyngitis, unspecified etiology J02.9 and Primary insomnia F51.01 [facility] [address] [place] [address] October, [facility] [address] [address] Sep, [facility] [address] [address] Sep, Hemoptysis R04.[address] [address] 16 Sep, 2017 Primary insomnia F51.01 [facility] [address] [place] [address] Sep, Adverse effect of drug, initial encounter T88.7[facility] [place] [address] [place] [address] Aug, Adverse effect of drug, initial encounter T88.7XXA [facility] [place] [address] [place] [address] Aug, Primary insomnia F51.01 [facility] [place] [address] [place] [address] Jul, [facility] [place] [address] [place] [address] Jul, Primary insomnia F51.01 [facility] [address] [facility] [id number] [address] 16 Jul, [address] [address] Jul, Atrial tachycardia I47.1 [facility] [address] [address] Jul, [facility] [address] [address] Jun, Flu-like symptoms R68.89 and Chronic obstructive pulmonary disease, unspecified COPD type J44.9 [facility] [address] [address] Jun, [facility] [address] [address] Jun, [facility] [address] [address] Jun, [facility] [address] [address] Jun, Epigastric pain R10.13 ; Diarrhea, unspecified type R19.7 and Non-intractable vomiting without nausea, unspecified vomiting type R11.11 [id number] [address] 15 May, 2017 [facility] [address] [address] May, Chronic nonintractable headache, unspecified headache type R51 [facility] [address] [address] 06 May, 2017 [facility] [address] [address] 04 May, 2017 Essential hypertension I10 ; Thyroiditis E06.9 and Nonintractable episodic headache, unspecified headache type R51 [facility] [address] [address] 18 Feb, 2017 Dyslipidemia E78.5 ; Vitamin D deficiency E55.9 and Atherosclerosis of left carotid artery I65.22 [facility] [place] [address] [place] [address] Jan, [facility] [address] [facility] [id number] [place] [address] Dec, [facility] [address] [address] Dec, Atrial tachycardia I47.1 ; History of thyroidectomy E89.0 ; Primary insomnia F51.01 and Tobacco use Z72.0 [facility] [address] [address] October, Galactorrhea O92.[address] [address] October, [facility] [address] [address] October, [facility] [address] [address] October, [facility] [address] [address] October, Cough R05 and Other chest pain R07.[address] [address] Sep, Dysuria R30.0 ; Acute cystitis without hematuria N30.00 and Chest tightness or pressure R07.[address] [address] Sep, [facility] [address] [address] Sep, Acute bilateral low back pain without sciatica M54.[address] [address] Aug, Dermatitis L30.9 ; Other insomnia G47.09 and Anxiety F41.[address] [address] Aug, [address] [address] Aug, Hypertension I10 ; Dyslipidemia E78.5 and Vitamin D deficiency E55.9 [facility] [place] [address] [place] [address] 07 Jun, 2016 Anxiety F41.9 and Hypertension I10 [facility] [address] [facility] [id number] [place] [address] Jun, [facility] [place] [address] [place] [address] Jun, Anxiety F41.9 and Hypertension I10 [facility] [place] [address] [place] [address] Jun, [facility] [place] [address] [place] [address] May, [facility] [place] [address] [place] [address] May, Acute upper back pain M54.9 and Hypertension I10 [facility] [place] [address] [place] [address] Apr, [facility] [place] [address] [place] [address] Apr, Mid-back pain, acute M54.9 ; Dyslipidemia E78.5 and Hypertension I10 [facility] [place] [address] [place] [address] Apr, [facility] [place] [address] [place] [address] Apr, [facility] [place] [address] [place] [address] Feb, Familial hypercholesterolemia E78.0 ; Occlusion and stenosis of left carotid artery I65.22 and Vitamin D deficiency E55.9 [facility] [place] [address] [place] [address] Feb, [facility] [place] [address] [place] [address] Feb, Fever, unspecified fever cause R50.9 and Acute non-recurrent maxillary sinusitis J01.00 [facility] [place] [address] [place] [address] Jan, [facility] [place] [address] [place] [address] Jan, [facility] [address] [address] Jan, Nodule of neck R22.1 and Night sweats R61 [address] [address] Dec, [address] [address] Dec, [address] [address] Nov, [address] [address] Nov, [address] [address] October, Acute upper respiratory infection, unspecified J06.9 ; Other viral agents as the cause of diseases classified elsewhere B97.89 and Calculus of gallbladder without cholecystitis without obstruction K80.[address] [address] Sep, Insomnia, unspecified type G47.00 ; Hypertension I10 and Elevated LFTs R79.[address] [address] Sep, Bleeding after intercourse N93.0 and Dysuria R30.[address] [address] Aug, Dysuria R30.0 and Pyuria N39.[address] [address] Aug, Hypertension I10 ; Insomnia, unspecified type G47.00 and 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 [address] 12 Jul, 2015 Pain of upper extremity M79.603 ; Hypertension I10 and Pure hypercholesterolemia E78.[address] [address] 09 Jul, 2015 Physical exam, pre-employment Z02.1 ; Visit for TB skin test Z11.1 ; Facial rash R21 and 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 [address] 04 Jul, 2015 Other and unspecified hyperlipidemia E78.5 ; Vitamin D deficiency E55.9 and Borderline abnormal thyroid function test R94.[address] [address] 12 Jun, 2015 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 ; Dyslipidemia E78.5 ; Dyspnea on exertion R06.09 ; Family history of cardiovascular disease Z82.49 and Borderline abnormal thyroid function test R94.[address] [address] May, Other emphysema J43.8 ; Smoking F17.200 and Tobacco abuse counseling Z71.[address] [address] 07 May, 2015 Cough R05 and Other emphysema J43.[address] [address] Apr, [address] [address] Apr, Skin lesion of back L98.9 and Skin lesion L98.[address] [address] Apr, Skin lesion of back L98.9 and Hot flashes N95.[address] [address] Mar, Bronchitis J40 [address] [address] 09 Mar, 2015 Acute pharyngitis, unspecified J02.9 and Upper respiratory infection with cough and congestion J06.[address] [address] Mar, Bronchitis J40 ; Shortness of breath R06.02 ; Encounter for screening mammogram for breast cancer Z12.31 and Yeast infection B37.[address] [address] Jan, Other and unspecified hyperlipidemia 272.4 and Hypothyroidism 244.9 [facility] [place] [address] [place] [address] Dec, [facility] [place] [address] [place] [address] Nov, Diarrhea 787.91 and Nausea 787.02 [facility] [place] [address] [place] [address] October, Other and unspecified hyperlipidemia 272.4 [facility] [place] [address] [place] [address] October, Lumbago 724.2 [facility] [address] [place] [id number] [place] [address] Sep, [facility] [address] [place] [id number] [place] [address] Sep, [facility] [address] [place] [id number] [place] [address] Aug, [facility] [place] [address] [place] [address] Aug, [facility] [place] [address] [place] [address] Jun, [facility] [address] [id number] [address] Jun, [facility] [address] [place] [id number] [place] [address] May, [facility] [address] [place] [id number] [place] [address] May, [facility] [place] [address] [place] [address] May, [facility] [place] [address] [place] [address] Apr, [facility] [address] [id number] [address] Apr, [facility] [place] [address] [place] [address] Mar, [facility] [address] [id number], [place] [address] Mar, [facility] [place] [address] [facility] [place] [address] Mar, [facility] [id number], [place] [address] Mar, [facility] [address] [id number] [address] Mar, [facility] [place] [address] [facility] [place] [address] Mar, [facility] [place] [address] [place] [address] Feb, [facility] [address], [place] [address] Feb, [facility] [place] [address] [place] [address] Jan, [facility] [address] [place] [id number], [place] [address] Jan, [facility] [address], [place] [address] Jan, [facility] [address] [id number], [place] [address] Jan, [facility] [place] [address] [facility] [place] [address] Jan, [facility] [id number], [place] [address] Jan, [facility] [place] [address] [place] [address] Dec, [facility] [address] [id number], [place] [address] Dec, [facility] [address], [place] [address] Dec, [facility] [address] [facility] [id number], [place] [address] Dec, [facility] [place] [address] [facility] [place] [address] Dec, [facility] [place] [address] [place] [address] Dec, [facility] [address] [id number], [place] [address] Dec, [facility] [place] [address] [facility] [place] [address] October, [facility] [address] [facility] [id number], [place] [address] October, [facility] [address] [id number], [place] [address] October, [facility] [place] [address] [place] [address] Sep, [facility] [address] [id number], [place] [address] Sep, [facility] [place] [address] [place] [address] Sep, [facility] [address] [facility] [id number], [place] [address] Sep, [facility] [address] [id number], [place] [address] Aug, [facility] [place] [address] [place] [address] Aug, [facility] [address] [facility] [id number], [place] [address] Jun, [facility] [address] [id number], [place] [address] Jun, [facility] [place] [address] [place] [address] Jun, [facility] [place] [address] [place] [address] May, [facility] [address] [facility] [id number], [place] [address] May, [facility] [id number], [place] [address] May, [facility] [address] [place] [address] May, [facility] [place] [address] [place] [address] Apr, [facility] [id number], [place] [address] Apr, [facility] [address] [facility] [id number], [place] [address] Feb, [facility] [address] [place] [address] Feb, IMMUNIZATIONS No Known Immunizations SOCIAL HISTORY [...]
--- OUTSIDE RECORDS SUMMARY | 2019-04-01 10:36 | XMS REPORT ---
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 Name Role Phone Migration, Doctor Unavailable Unavailable PROBLEMS Type Condition ICD9-CM Code GSN11-BM Code Onset Dates Condition Status SNOMED Code Problem Hot flashes N95.1 Active 438753321 Problem Smoking F17.200 Active 95301357 Problem Skin lesion of back L98.9 Active 43862077 Problem Borderline abnormal thyroid function test R94.6 Active 229888007 Problem Other emphysema J43.8 Active 67601909 Problem Anxiety F41.9 Active 65206654 Problem Gastroparesis K31.84 Active 332792033 Problem Vitamin D deficiency E55.9 Active 20190783 Problem 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 33612610 Problem Facial rash R21 Active 093827591 Problem Other and unspecified hyperlipidemia E78.5 Active 97290802 Problem Insomnia, unspecified type G47.00 Active 608074631 Problem Hypertension I10 Active 92924873 Problem Familial hypercholesterolemia E78.0 Active 933398513 Problem Elevated LFTs R79.89 Active 471138680 Problem Other insomnia G47.09 Active 428952609 Problem Primary insomnia F51.01 Active 2173465 Problem Atrial tachycardia I47.1 Active 598043330 Problem Menopausal hot flushes N95.1 Active 310342772 Problem Dyspnea on exertion R06.09 Active 69786714 Problem COPD with exacerbation J44.1 Active 263756830 Problem Family history of cardiovascular disease Z82.49 Active 066468441 Problem Dyslipidemia E78.5 Active 347238807 Problem History of thyroidectomy E89.0 Active 413750298 Problem Thyroiditis E06.9 Active 31139408 Problem Essential hypertension I10 Active 07554674 Problem Chronic obstructive pulmonary disease, unspecified COPD type J44.9 Active 55582765 ALLERGIES No Information ENCOUNTERS Encounter Location Date Diagnosis [facility] [id number] [place] [address] October, COPD with exacerbation J44.1 and Acute left-sided thoracic back pain M54.6 [facility] [address] [place] [address] Sep, [facility] [address] [place] [address] Sep, [facility] [address] [place] [address] Sep, [facility] [address] [place] [address] Sep, Smoking F17.200 and Upper respiratory infection with cough and congestion J06.9 [facility] [address] [place] [address] Sep, Infiltrate noted on imaging study R93.89 [facility] [address] [place] [address] Sep, Rib pain R07.81 [facility] [address] [place] [address] Aug, Rib pain R07.81 [facility] [address] [place] [address] Aug, [facility] [address] [place] [address] Aug, [facility] [address] [place] [address] Aug, [facility] [address] [place] [address] Aug, [facility] [address] [place] [address] Aug, Cough R05 [facility] [address] [place] [address] Aug, Right hand pain M79.641 and Atypical pigmented skin lesion L81.9 [facility] [address] [place] [address] Aug, [facility] [address] [place] [address] Aug, De Quervain's disease (radial styloid tenosynovitis) M65.4 and Atypical mole D22.9 [facility] [address] [place] [address] Jul, Cough R05 [facility] [address] [place] [address] Jun, Upper respiratory tract infection, unspecified type J06.9 [facility] [address] [place] [address] Jun, Neck pain on left side M54.2 [facility] [address] [facility] [id number] [address] 07 Jun, 2018 [facility] [address] [place] [address] Jun, Neck pain on left side M54.2 and Neck nodule R22.1 [facility] [address] [place] [address] Jun, Acute gastritis without hemorrhage, unspecified gastritis type K29.00 [facility] [address] [place] [address] May, Chronic nonintractable headache, unspecified headache type R51 [facility] [address] [place] [address] Apr, Subacute frontal sinusitis J01.10 and Chronic nonintractable headache, unspecified headache type R51 [facility] [address] [place] [address] Apr, [facility] [address] [place] [address] Mar, Encounter for immunization Z23 [facility] [address] [place] [address] 30 Feb, 2018 Primary insomnia F51.01 [facility] [address] [place] [address] 28 Feb, 2018 Primary insomnia F51.01 [facility] [address] [place] [address] 07 Feb, 2018 Mucous cyst of nasal sinus J34.1 [facility] [address] [place] [address] Jan, [facility] [address] [address] Dec, [facility] [place] [address] [place] [address] Dec, Primary insomnia F51.01 ; Anxiety F41.9 and Menopausal hot flushes N95.1 [facility] [place] [address] [place] [address] October, Dry mouth, unspecified R68.2 ; Pharyngitis, unspecified etiology J02.9 and Primary insomnia F51.01 [facility] [place] [address] [place] [address] October, [facility] [place] [address] [place] [address] Sep, [facility] [address] [address] Sep, Hemoptysis R04.2 [facility] [place] [address] [place] [address] Sep, Primary insomnia F51.01 [facility] [place] [address] [place] [address] Sep, Adverse effect of drug, initial encounter T88.7XXA [facility] [place] [address] [place] [address] Aug, Adverse effect of drug, initial encounter T88.7XXA [facility] [address] [address] Aug, Primary insomnia F51.01 [facility] [place] [address] [place] [address] Jul, [facility] [place] [address] [place] [address] Jul, Primary insomnia F51.01 [facility] [address] [facility] [id number] [place] [address] Jul, [facility] [place] [address] [place] [address] Jul, Atrial tachycardia I47.1 [facility] [place] [address] [place] [address] Jul, [facility] [address] [address] Jun, Flu-like symptoms R68.89 and Chronic obstructive pulmonary disease, unspecified COPD type J44.9 [facility] [address] [address] Jun, [facility] [address] [address] Jun, [facility] [address] [address] Jun, [facility] [address] [address] Jun, Epigastric pain R10.13 ; Diarrhea, unspecified type R19.7 and Non-intractable vomiting without nausea, unspecified vomiting type R11.11 [address] [address] 15 May, 2017 [facility] [address] [address] May, Chronic nonintractable headache, unspecified headache type R51 [address] [address] 06 May, [address] [address] 04 May, 2017 Essential hypertension I10 ; Thyroiditis E06.9 and Nonintractable episodic headache, unspecified headache type R51 [address] [address] 18 Feb, 2017 Dyslipidemia E78.5 ; Vitamin D deficiency E55.9 and Atherosclerosis of left carotid artery I65.[address] [address] Jan, [address] [place] [address] Dec, [address] [address] Dec, Atrial tachycardia I47.1 ; History of thyroidectomy E89.0 ; Primary insomnia F51.01 and Tobacco use Z72.0 [facility] [place] [address] [place] [address] October, Galactorrhea O92.6 [facility] [place] [address] [place] [address] October, [facility] [place] [address] [place] [address] October, [facility] [place] [address] [place] [address] October, [facility] [place] [address] [place] [address] October, Cough R05 and Other chest pain R07.89 [facility] [address] [address] Sep, Dysuria R30.0 ; Acute cystitis without hematuria N30.00 and Chest tightness or pressure R07.[address] [address] Sep, [facility] [place] [address] [place] [address] Sep, Acute bilateral low back pain without sciatica M54.[address] [address] Aug, Dermatitis L30.9 ; Other insomnia G47.09 and Anxiety F41.9 [facility] [address] [place] [address] Aug, [facility] [address] [address] Aug, Hypertension I10 ; Dyslipidemia E78.5 and Vitamin D deficiency E55.9 [facility] [address] [place] [address] Jun, Anxiety F41.9 and Hypertension I10 [facility] [address] [facility] [id number] [place] [address] Jun, [facility] [place] [address] [place] [address] Jun, Anxiety F41.9 and Hypertension I10 [facility] [address] [place] [address] Jun, [facility] [place] [address] [place] [address] May, [facility] [place] [address] [place] [address] May, Acute upper back pain M54.9 and Hypertension I10 [facility] [place] [address] [place] [address] Apr, [facility] [place] [address] [place] [address] Apr, Mid-back pain, acute M54.9 ; Dyslipidemia E78.5 and Hypertension I10 [facility] [place] [address] [place] [address] Apr, [facility] [place] [address] [place] [address] Apr, [facility] [address] [address] Feb, Familial hypercholesterolemia E78.0 ; Occlusion and stenosis of left carotid artery I65.22 and Vitamin D deficiency E55.9 [facility] [address] [place] [address] Feb, [facility] [address] [address] Feb, Fever, unspecified fever cause R50.9 and Acute non-recurrent maxillary sinusitis J01.00 [facility] [place] [address] [place] [address] Jan, [facility] [address] [address] Jan, [facility] [address] [address] Jan, Nodule of neck R22.1 and Night sweats R61 [facility] [address] [address] Dec, [facility] [address] [address] Dec, [address] [address] Nov, [address] [address] Nov, [address] [address] October, Acute upper respiratory infection, unspecified J06.9 ; Other viral agents as the cause of diseases classified elsewhere B97.89 and Calculus of gallbladder without cholecystitis without obstruction K80.[address] [address] Sep, Insomnia, unspecified type G47.00 ; Hypertension I10 and Elevated LFTs R79.[address] [address] Sep, Bleeding after intercourse N93.0 and Dysuria R30.[address] [address] Aug, Dysuria R30.0 and Pyuria N39.[address] [address] Aug, Hypertension I10 ; Insomnia, unspecified type G47.00 and 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 [facility] [address] [place] [address] 12 Jul, 2015 Pain of upper extremity M79.603 ; Hypertension I10 and Pure hypercholesterolemia E78.[address] [address] 09 Jul, 2015 Physical exam, pre-employment Z02.1 ; Visit for TB skin test Z11.1 ; Facial rash R21 and 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 [address] 04 Jul, 2015 Other and unspecified hyperlipidemia E78.5 ; Vitamin D deficiency E55.9 and Borderline abnormal thyroid function test R94.[address] [address] Jun, 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 ; Dyslipidemia E78.5 ; Dyspnea on exertion R06.09 ; Family history of cardiovascular disease Z82.49 and Borderline abnormal thyroid function test R94.[address] [address] May, Other emphysema J43.8 ; Smoking F17.200 and Tobacco abuse counseling Z71.[address] [address] May, Cough R05 and Other emphysema J43.[address] [address] Apr, [address] [address] Apr, Skin lesion of back L98.9 and Skin lesion L98.[address] [address] Apr, Skin lesion of back L98.9 and Hot flashes N95.[address] [address] Mar, Bronchitis J40 [address] [address] Mar, Acute pharyngitis, unspecified J02.9 and Upper respiratory infection with cough and congestion J06.[address] [address] Mar, Bronchitis J40 ; Shortness of breath R06.02 ; Encounter for screening mammogram for breast cancer Z12.31 and Yeast infection B37.[address] [address] Jan, Other and unspecified hyperlipidemia 272.4 and Hypothyroidism 244.[address] [address] Dec, [address] [address] Nov, Diarrhea 787.91 and Nausea 787.[address] [address] October, Other and unspecified hyperlipidemia 272.4 [facility] [place] [address] [place] [address] October, Lumbago 724.2 [facility] [address] [address] Sep, [facility] [id number] [address] Sep, [facility] [address] [address] Aug, [facility] [place] [address] [place] [address] Aug, [facility] [place] [address] [place] [address] Jun, [facility] [address] [address] Jun, [facility] [address] [address] May, [facility] [address] [address] May, [facility] [place] [address] [place] [address] May, [facility] [place] [address] [place] [address] Apr, [facility] [address] [address] Apr, [facility] [place] [address] [place] [address] Mar, [facility] [address] [address] Mar, [facility] [place] [address] [place] [address] Mar, [facility] [address], [place] [address] Mar, [facility] [address] [place] [address] Mar, [facility] [place] [address] [facility] [place] [address] Mar, [facility] [place] [address] [facility] [place] [address] Feb, [facility] [place] [facility] [address] [facility] [id number] [place] [address] Feb, [facility] [place] [address] [facility] [place] [address] Jan, [facility] [place] [facility] [address] [facility] [id number] [place] [address] Jan, [facility] [place] [facility] [address] [facility] [id number], [place] [address] Jan, [facility] [place] [facility] [id number] [place] [address] Jan, [facility] [place] [address] [facility] [place] [address] Jan, [facility] [place] [facility] [address] [facility] [id number] [place] [address] Jan, [facility] [place] [address] [facility] [place] [address] Dec, [facility] [place] [facility] [address] [facility] [id number], [place] [address] Dec, [facility] [place] [facility] [address] [facility] [id number], [place] [address] Dec, [facility] [place] [facility] [address] [facility] [id number], [place] [address] Dec, [facility] [place] [address] [facility] [place] [address] Dec, [facility] [place] [address] [place] [address] Dec, [facility] [place] [facility] [address] [facility] [id number], [place] [address] Dec, [facility] [place] [address] [facility] [place] [address] October, [facility] [id number] [address] October, [facility] [id number], [place] [address] October, [facility] [place] [address] [place] [address] Sep, [facility] [place] [facility] [id number], [place] [address] Sep, [facility] [place] [address] [place] [address] Sep, [facility] [id number] [address] Sep, [facility] [id number], [place] [address] Aug, [facility] [place] [address] [place] [address] Aug, [facility] [id number], [place] [address] Jun, [facility] [id number], [place] [address] Jun, [facility] [place] [address] [place] [address] Jun, [facility] [place] [address] [place] [address] May, [facility] [id number], [place] [address] May, [facility] [id number], [place] [address] May, [facility] [place] [address] [place] [address] May, [facility] [place] [address] [place] [address] Apr, [facility] [address] [facility] [id number] [place] [address] Apr, [facility] [address] [facility] [id number] [place] [address] Feb, [facility] [place] [address] [place] [address] 17 Feb, 2013 IMMUNIZATIONS No Known Immunizations SOCIAL HISTORY Never Assessed REASON FOR VISIT PLAN OF CARE VITAL SIGNS MEDICATIONS No Known Medications RESULTS No Results PROCEDURES No Known [...]
--- OUTSIDE RECORDS SUMMARY | 2019-04-01 10:36 | XMS REPORT ---
Author Author KEVIN BEJARANO Organization [facility] [address] [facility] Address [address] [place] [address] Care Team Providers Care Alteration Manager Name Role Phone KEVIN BEJARANO Unavailable PROBLEMS Type Condition ICD9-CM Code QSY19-OW Code Onset Dates Condition Status SNOMED Code Problem Hot flashes N95.1 Active 320481047 Problem Smoking F17.200 Active 14300121 Problem Skin lesion of back L98.9 Active 63935554 Problem Borderline abnormal thyroid function test R94.6 Active 224153048 Problem Other emphysema J43.8 Active 65134092 Problem Anxiety F41.9 Active 10338869 Problem Gastroparesis K31.84 Active 688679907 Problem Vitamin D deficiency E55.9 Active 74085106 Problem 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 87145132 Problem Facial rash R21 Active 517179565 Problem Other and unspecified hyperlipidemia E78.5 Active 90043815 Problem Insomnia, unspecified type G47.00 Active 589196620 Problem Hypertension I10 Active 87941549 Problem Familial hypercholesterolemia E78.0 Active 105825347 Problem Elevated LFTs R79.89 Active 476446605 Problem Other insomnia G47.09 Active 809185881 Problem Primary insomnia F51.01 Active 3770039 Problem Atrial tachycardia I47.1 Active 693610677 Problem Menopausal hot flushes N95.1 Active 752925369 Problem Dyspnea on exertion R06.09 Active 40924801 Problem COPD with exacerbation J44.1 Active 977879072 Problem Family history of cardiovascular disease Z82.49 Active 344937802 Problem Dyslipidemia E78.5 Active 883016428 Problem History of thyroidectomy E89.0 Active 657930206 Problem Thyroiditis E06.9 Active 19426229 Problem Essential hypertension I10 Active 56124919 Problem Chronic obstructive pulmonary disease, unspecified COPD type J44.9 Active 49774321 ALLERGIES No Information ENCOUNTERS Encounter Location Date Diagnosis [facility] [address] [place] [address] [place] [address] Dec, [facility] [address] [place] [address] [place] [address], [place] [address] Dec, [facility] [address] [place] [address] [place] [address] Dec, Right lower quadrant pain R10.31 [facility] [address] [place] [address] [place] [address], [place] [address] October, COPD with exacerbation J44.1 and Acute left-sided thoracic back pain M54.6 [facility] [address] [place] [address] [place] [address] Sep, [facility] [address] [place] [address] [place] [address] Sep, [facility] [address] [place] [address] [place] [address], [place] [address] Sep, [facility] [address] [place] [address] Sep, Smoking F17.200 and Upper respiratory infection with cough and congestion J06.9 [facility] [address] [place] [address] [place] [address] Sep, Infiltrate noted on imaging study R93.89 [facility] [address] [place] [address] [place] [address] Sep, Rib pain R07.81 [facility] [address] [place] [address] [place] [address] Aug, Rib pain R07.81 [facility] [address] [place] [address] [place] [address] Aug, [facility] [address] [place] [address] [place] [address] Aug, [facility] [address] [place] [address] [place] [address], [place] [address] Aug, [facility] [address] [place] [address] [place] [address] Aug, [facility] [address] [place] [address] [place] [address] Aug, Cough R05 [facility] [address] [place] [address] [place] [address] Aug, Right hand pain M79.641 and Atypical pigmented skin lesion L81.9 [facility] [address] [place] [address] [place] [address] Aug, [facility] [address] [place] [address] Aug, De Quervain's disease (radial styloid tenosynovitis) M65.4 and Atypical mole D22.9 [facility] [address] [place] [address] Jul, Cough R05 [facility] [address] [place] [address] Jun, Upper respiratory tract infection, unspecified type J06.9 [facility] [address] [place] [address] Jun, Neck pain on left side M54.2 [facility] [address] [facility] [id number] [place] [address] Jun, [facility] [address] [place] [address] Jun, Neck pain on left side M54.2 and Neck nodule R22.1 [facility] [address] [place] [address] Jun, Acute gastritis without hemorrhage, unspecified gastritis type K29.[address] [facility] [address] [place] [address] May, Chronic nonintractable headache, unspecified headache type R51 [facility] [address] [place] [address] Apr, Subacute frontal sinusitis J01.10 and Chronic nonintractable headache, unspecified headache type R51 [facility] [address] [place] [address] Apr, [facility] [address] [place] [address] Mar, Encounter for immunization Z23 [facility] [place] [address] [place] [address] Feb, Primary insomnia F51.01 [facility] [address] [place] [address] Feb, Primary insomnia F51.01 [facility] [address] [place] [address] [place] [address] 07 Feb, 2018 Mucous cyst of nasal sinus J34.1 [facility] [address] [place] [address] [place] [address] Jan, [facility] [place] [address] [place] [address] Dec, [facility] [place] [address] [place] [address] Dec, Primary insomnia F51.01 ; Anxiety F41.9 and Menopausal hot flushes N95.1 [facility] [place] [address] [place] [address] October, Dry mouth, unspecified R68.2 ; Pharyngitis, unspecified etiology J02.9 and Primary insomnia F51.01 [facility] [place] [address] [place] [address] October, [facility] [place] [address] [place] [address] Sep, [facility] [address] [address] Sep, Hemoptysis R04.[address] [address] Sep, Primary insomnia F51.01 [facility] [place] [address] [place] [address] Sep, Adverse effect of drug, initial encounter T88.7XXA [facility]erto[facility] [place] [address] [place] [address] Aug, Adverse effect of drug, initial encounter T88.7XXA [facility] [place] [address] [place] [address] Aug, Primary insomnia F51.01 [facility] [place] [address] [place] [address] Jul, [facility] [place] [address] [place] [address] Jul, Primary insomnia F51.01 [facility] [address] [facility] [id number] [address] 16 Jul, [address] [address] Jul, Atrial tachycardia I47.1 [facility] [place] [address] [place] [address] Jul, Thao [place] [address] [place] [address] Jun, Flu-like symptoms R68.89 and Chronic obstructive pulmonary disease, unspecified COPD type J44.9 [facility] [place] [address] [place] [address] Jun, Thao [address] [address] Jun, kiranPHILIP [address] [address] Jun, Vin [place] [address] [place] [address] Jun, Epigastric pain R10.13 ; Diarrhea, unspecified type R19.7 and Non-intractable vomiting without nausea, unspecified vomiting type R11.[address] [id number] [address] 15 May, [address] [address] 13 May, 2017 Chronic nonintractable headache, unspecified headache type R51 [facility] [place] [address] [place] [address] 06 May, 2017 [facility] [address] [address] 04 May, 2017 Essential hypertension I10 ; Thyroiditis E06.9 and Nonintractable episodic headache, unspecified headache type R51 [facility] [place] [address] [place] [address] 18 Feb, 2017 Dyslipidemia E78.5 ; Vitamin D deficiency E55.9 and Atherosclerosis of left carotid artery I65.[address] [address] Jan, [facility] [address] [facility] [id number] [place] [address] Dec, [facility] [address] [address] Dec, Atrial tachycardia I47.1 ; History of thyroidectomy E89.0 ; Primary insomnia F51.01 and Tobacco use Z72.[address] [address] October, Galactorrhea O92.[address] [address] October, [facility] [address] [address] October, [facility] [address] [address] October, [facility] [address] [address] October, Cough R05 and Other chest pain R07.[address] [address] Sep, Dysuria R30.0 ; Acute cystitis without hematuria N30.00 and Chest tightness or pressure R07.[address] [address] Sep, [facility] [address] [address] Sep, Acute bilateral low back pain without sciatica M54.[address] [address] Aug, Dermatitis L30.9 ; Other insomnia G47.09 and Anxiety F41.[address] [address] Aug, [address] [address] Aug, Hypertension I10 ; Dyslipidemia E78.5 and Vitamin D deficiency E55.[address] [place] [address] 07 Jun, 2016 Anxiety F41.9 and Hypertension I10 [facility] [address] [facility] [id number] [place] [address] Jun, [facility] [place] [address] [place] [address] Jun, Anxiety F41.9 and Hypertension I10 [facility] [place] [address] [place] [address] Jun, [facility] [place] [address] [place] [address] May, [facility] [place] [address] [place] [address] May, Acute upper back pain M54.9 and Hypertension I10 [facility] [place] [address] [place] [address] Apr, [facility] [place] [address] [place] [address] Apr, Mid-back pain, acute M54.9 ; Dyslipidemia E78.5 and Hypertension I10 [facility] [place] [address] [place] [address] Apr, [facility] [place] [address] [place] [address] Apr, [facility] [place] [address] [place] [address] Feb, Familial hypercholesterolemia E78.0 ; Occlusion and stenosis of left carotid artery I65.22 and Vitamin D deficiency E55.9 [facility] [place] [address] [place] [address] Feb, [facility] [place] [address] [place] [address] Feb, Fever, unspecified fever cause R50.9 and Acute non-recurrent maxillary sinusitis J01.00 [facility] [place] [address] [place] [address] Jan, [facility] [place] [address] [place] [address] Jan, [address] [address] Jan, Nodule of neck R22.1 and Night sweats R61 [address] [address] Dec, [address] [address] Dec, [address] [address] Nov, [address] [address] Nov, [address] [address] October, Acute upper respiratory infection, unspecified J06.9 ; Other viral agents as the cause of diseases classified elsewhere B97.89 and Calculus of gallbladder without cholecystitis without obstruction K80.[address] [address] Sep, Insomnia, unspecified type G47.00 ; Hypertension I10 and Elevated LFTs R79.[address] [address] Sep, Bleeding after intercourse N93.0 and Dysuria R30.[address] [address] Aug, Dysuria R30.0 and Pyuria N39.[address] [address] Aug, Hypertension I10 ; Insomnia, unspecified type G47.00 and 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 [address] 12 Jul, 2015 Pain of upper extremity M79.603 ; Hypertension I10 and Pure hypercholesterolemia E78.[address] [address] 09 Jul, 2015 Physical exam, pre-employment Z02.1 ; Visit for TB skin test Z11.1 ; Facial rash R21 and 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 [address] 04 Jul, 2015 Other and unspecified hyperlipidemia E78.5 ; Vitamin D deficiency E55.9 and Borderline abnormal thyroid function test R94.[address] [address] 12 Jun, 2015 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 ; Dyslipidemia E78.5 ; Dyspnea on exertion R06.09 ; Family history of cardiovascular disease Z82.49 and Borderline abnormal thyroid function test R94.[address] [address] May, Other emphysema J43.8 ; Smoking F17.200 and Tobacco abuse counseling Z71.[address] [address] May, Cough R05 and Other emphysema J43.[address] [address] Apr, [address] [address] Apr, Skin lesion of back L98.9 and Skin lesion L98.[address] [address] Apr, Skin lesion of back L98.9 and Hot flashes N95.[address] [address] Mar, Bronchitis J40 [address] [address] Mar, Acute pharyngitis, unspecified J02.9 and Upper respiratory infection with cough and congestion J06.[address] [address] Mar, Bronchitis J40 ; Shortness of breath R06.02 ; Encounter for screening mammogram for breast cancer Z12.31 and Yeast infection B37.[address] [address] Jan, Other and unspecified hyperlipidemia 272.4 and Hypothyroidism 244.9 [facility] [place] [address] [place] [address] Dec, [facility] [place] [address] [place] [address] Nov, Diarrhea 787.91 and Nausea 787.02 [facility] [place] [address] [place] [address] October, Other and unspecified hyperlipidemia 272.4 [facility] [place] [address] [place] [address] October, Lumbago 724.2 [facility] [address] [place] [id number] [place] [address] Sep, [facility] [address] [place] [id number] [place] [address] Sep, [facility] [address] [place] [id number] [place] [address] Aug, [facility] [place] [address] [place] [address] Aug, [facility] [place] [address] [place] [address] Jun, [facility] [address] [place], [place] [address] [address] Jun, [facility] [address] [place] [id number] [place] [address] May, [facility] [address] [place] [id number] [place] [address] May, [facility] [place] [address] [place] [address] May, [facility] [place] [address] [place] [address] Apr, [facility] [address] [place], [place] [address] [address] Apr, [facility] [place] [address] [place] [address] Mar, [facility] [address] [id number] [address] Mar, [facility] [place] [address] [facility] [place] [address] Mar, [facility] [address] [id number] [address] Mar, [facility] [address] [id number] [address] Mar, [facility] [place] [address] [facility] [place] [address] Mar, [facility] [place] [address] [facility] [place] [address] Feb, [facility] [address] [id number] [address] Feb, [facility] [place] [address] [facility] [place] [address] Jan, [facility] [address] [id number] [address] Jan, [facility] [address] [address] Jan, [facility] [address] [id number] [address] Jan, [facility] [place] [address] [facility] [place] [address] Jan, [facility] [address] [id number] [address] Jan, [facility] [place] [address] [place] [address] Dec, [facility] [address] [id number] [address] Dec, [facility] [address] [id number] [address] Dec, [facility] [address] [id number] [address] Dec, [facility] [place] [address] [facility] [place] [address] Dec, [facility] [place] [address] [place] [address] Dec, [facility] [address] [id number] [address] Dec, [facility] [place] [address] [facility] [place] [address] October, [facility] [address] [facility] [id number] [address] October, [facility] [address] [id number] [address] October, [facility] [place] [address] [place] [address] Sep, [facility] [address] [id number] [address] Sep, [facility] [place] [address] [place] [address] Sep, [facility] [address] [id number] [address] Sep, [facility] [address] [id number] [address] Aug, [facility] [place] [address] [place] [address] Aug, [facility] [address] [facility] [id number] [address] Jun, [facility] [address] [id number] [address] Jun, [facility] [place] [address] [place] [address] Jun, [facility] [place] [address] [place] [address] May, [facility] [address] [facility] [id number] [address] May, [facility] [address] [id number] [address] May, [facility] [place] [address] [place] [address] May, [facility] [place] [address] [place] [address] Apr, [facility] [address] [id number] [address] Apr, [facility] [address] [id number], [place] [address] Feb, [facility] [place] [address] [place] [address] Feb, IMMUNIZATIONS No Known Immunizations SOCIAL HISTORY Never Assessed REASON FOR VISIT Test results PLAN OF CARE VITAL SIGNS MEDICATIONS Unknown [...]
--- OUTSIDE RECORDS SUMMARY | 2019-04-01 10:37 | XMS REPORT ---
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 [employer] Name Role Phone ASHELY OTT Unavailable PROBLEMS Type Condition ICD9-CM Code WUY43-AT Code Onset Dates Condition Status SNOMED Code Problem Hot flashes N95.1 Active 285616416 Problem Smoking F17.200 Active 69428235 Problem Skin lesion of back L98.9 Active 52399507 Problem Borderline abnormal thyroid function test R94.6 Active 689185767 Problem Other emphysema J43.8 Active 31210238 Problem Anxiety F41.9 Active 44429283 Problem Gastroparesis K31.84 Active 561866342 Problem Vitamin D deficiency E55.9 Active 62353988 Problem 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 35479238 Problem Facial rash R21 Active 395006825 Problem Other and unspecified hyperlipidemia E78.5 Active 59609324 Problem Insomnia, unspecified type G47.00 Active 044314554 Problem Hypertension I10 Active 29449442 Problem Familial hypercholesterolemia E78.0 Active 678691254 Problem Elevated LFTs R79.89 Active 950929533 Problem Other insomnia G47.09 Active 632262652 Problem Primary insomnia F51.01 Active 5095345 Problem Atrial tachycardia I47.1 Active 912900267 Problem Menopausal hot flushes N95.1 Active 206353607 Problem Dyspnea on exertion R06.09 Active 92493880 Problem COPD with exacerbation J44.1 Active 603513176 Problem Family history of cardiovascular disease Z82.49 Active 217707399 Problem Dyslipidemia E78.5 Active 950744633 Problem History of thyroidectomy E89.0 Active 781859340 Problem Thyroiditis E06.9 Active 56355909 Problem Essential hypertension I10 Active 29753113 Problem Chronic obstructive pulmonary disease, unspecified COPD type J44.9 Active 65307930 ALLERGIES Substance Reaction Event Type Date Status Promethazine VC/Codeine stomach upset Drug Allergy Aug, Active Fentanyl anaphylaxis Drug Allergy Aug, Active ENCOUNTERS Encounter Location Date Diagnosis [facility] [address] [place] [address] October, COPD with exacerbation J44.1 and Acute left-sided thoracic back pain M54.6 [facility] [address] [place] [address] Sep, [facility] [address] [place] [address] Sep, [facility] [address] [place] [address] Sep, [facility] [address] [address] Sep, Smoking F17.200 and Upper respiratory infection with cough and congestion J06.9 [facility] [address] [place] [address] Sep, Infiltrate noted on imaging study R93.89 [facility] [address] [place] [address] Sep, Rib pain R07.81 [facility] [address] [place] [address] Aug, Rib pain R07.81 [facility] [address] [place] [address] Aug, [facility] [address] [address] Aug, [facility] [address] [place] [address] Aug, [facility] [address] [place] [address] Aug, [facility] [address] [place] [address] Aug, Cough R05 [facility] [address] [place] [address] Aug, Right hand pain M79.641 and Atypical pigmented skin lesion L81.9 [facility] [address] [place] [address] Aug, [facility] [address] [place] [address] Aug, De Quervain's disease (radial styloid tenosynovitis) M65.4 and Atypical mole D22.9 [facility] [address] [place] [address] Jul, Cough R05 [facility] [address] [place] [address] Jun, Upper respiratory tract infection, unspecified type J06.9 [facility] [address] [place] [address] Jun, Neck pain on left side M54.2 [facility] [id number] [place] [address] Jun, [facility] [address] [place] [address] Jun, Neck pain on left side M54.2 and Neck nodule R22.1 [facility] [address] [place] [address] Jun, Acute gastritis without hemorrhage, unspecified gastritis type K29.00 [facility] [address] [place] [address] May, Chronic nonintractable headache, unspecified headache type R51 [facility] [address] [place] [address] Apr, Subacute frontal sinusitis J01.10 and Chronic nonintractable headache, unspecified headache type R51 [facility] [address] [place] [address] Apr, [facility] [address] [place] [address] Mar, Encounter for immunization Z23 [facility] [address] [address] 30 Feb, 2018 Primary insomnia F51.01 [facility] [address] [place] [address] 28 Feb, 2018 Primary insomnia F51.01 [facility] [address] [place] [address] 07 Feb, 2018 Mucous cyst of nasal sinus J34.1 [facility] [address] [place] [address] Jan, [facility] [place] [address] [place] [address] Dec, [facility] [place] [address] [place] [address] Dec, Primary insomnia F51.01 ; Anxiety F41.9 and Menopausal hot flushes N95.1 [facility] [place] [address] [place] [address] October, Dry mouth, unspecified R68.2 ; Pharyngitis, unspecified etiology J02.9 and Primary insomnia F51.01 [facility] [address] [place] [address] October, [facility] [place] [address] [place] [address] Sep, [facility] [address] [place] [address] Sep, Hemoptysis R04.2 [facility] [address] [place] [address] Sep, Primary insomnia F51.01 [facility] [address] [place] [address] Sep, Adverse effect of drug, initial encounter T88.7XXA [facility] [address] [place] [address] Aug, Adverse effect of drug, initial encounter T88.7XXA [facility] [place] [address] [place] [address] Aug, Primary insomnia F51.01 [facility] [place] [address] [place] [address] Jul, [facility] [place] [address] [place] [address] Jul, Primary insomnia F51.01 [facility] [address] [facility] [id number] [address] Jul, [facility] [place] [address] [place] [address] Jul, Atrial tachycardia I47.1 [facility] [address] [place] [address] Jul, [facility] [address] [place] [address] Jun, Flu-like symptoms R68.89 and Chronic obstructive pulmonary disease, unspecified COPD type J44.9 Vin [address] [place] [address] Jun, Thao [place] [address] [place] [address] Jun, Vin KINGSLEY [address] [place] [address] Jun, Thao [place] [address] [place] [address] Jun, Epigastric pain R10.13 ; Diarrhea, unspecified type R19.7 and Non-intractable vomiting without nausea, unspecified vomiting type R11.[address] [place] [address] May, Vin [address] [place] [address] May, Chronic nonintractable headache, unspecified headache type R51 Thao KINGSLEY [address] [place] [address] May, Vin [address] [place] [address] 04 May, 2017 Essential hypertension I10 ; Thyroiditis E06.9 and Nonintractable episodic headache, unspecified headache type R51 Thao [address] [place] [address] Feb, Dyslipidemia E78.5 ; Vitamin D deficiency E55.9 and Atherosclerosis of left carotid artery I65.22 [facility] [address] [place] [address] Jan, [facility] [address] [place] [id number] [address] Dec, Thao KINGSLEY [address] [place] [address] Dec, Atrial tachycardia I47.1 ; History of thyroidectomy E89.0 ; Primary insomnia F51.01 and Tobacco use Z72.[address] [address] October, Galactorrhea O92.[address] [address] October, [facility] [address] [address] October, [facility] [address] [address] October, [facility] [address] [address] October, Cough R05 and Other chest pain R07.[address] [address] Sep, Dysuria R30.0 ; Acute cystitis without hematuria N30.00 and Chest tightness or pressure R07.[address] [address] Sep, [facility] [address] [address] Sep, Acute bilateral low back pain without sciatica M54.[address] [address] Aug, Dermatitis L30.9 ; Other insomnia G47.09 and Anxiety F41.[address] [address] Aug, [address] [address] Aug, Hypertension I10 ; Dyslipidemia E78.5 and Vitamin D deficiency E55.[address] [address] Jun, Anxiety F41.9 and Hypertension I10 [facility] [address] [facility] [id number] [address] Jun, [place] [address] [place] [address] Jun, Anxiety F41.9 and Hypertension I10 [facility] [address] [place] [address] Jun, [facility] [address] [place] [address] May, [facility] [address] [address] [place] [address] May, Acute upper back pain M54.9 and Hypertension I10 [facility] [address] [address] Apr, kiranPHILIP [address] [address] Apr, Mid-back pain, acute M54.9 ; Dyslipidemia E78.5 and Hypertension I10 [facility] [address] [address] Apr, [facility] [address] [address] Apr, [facility] [address] [address] Feb, Familial hypercholesterolemia E78.0 ; Occlusion and stenosis of left carotid artery I65.22 and Vitamin D deficiency E55.[address] [address] Feb, [facility] [address] [address] Feb, Fever, unspecified fever cause R50.9 and Acute non-recurrent maxillary sinusitis J01.00 [facility] [address] [address] Jan, [facility] [address] [address] Jan, [facility] [address] [address] Jan, Nodule of neck R22.1 and Night sweats R61 [address] [address] Dec, [address] [address] Dec, [address] [address] Nov, [address] [address] Nov, [address] [address] October, Acute upper respiratory infection, unspecified J06.9 ; Other viral agents as the cause of diseases classified elsewhere B97.89 and Calculus of gallbladder without cholecystitis without obstruction K80.[address] [address] Sep, Insomnia, unspecified type G47.00 ; Hypertension I10 and Elevated LFTs R79.[address] [address] Sep, Bleeding after intercourse N93.0 and Dysuria R30.[address] [address] Aug, Dysuria R30.0 and Pyuria N39.[address] [address] Aug, Hypertension I10 ; Insomnia, unspecified type G47.00 and 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 [address] 12 Jul, 2015 Pain of upper extremity M79.603 ; Hypertension I10 and Pure hypercholesterolemia E78.[address] [address] 09 Jul, 2015 Physical exam, pre-employment Z02.1 ; Visit for TB skin test Z11.1 ; Facial rash R21 and 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 [address] 04 Jul, 2015 Other and unspecified hyperlipidemia E78.5 ; Vitamin D deficiency E55.9 and Borderline abnormal thyroid function test R94.[address] [address] 12 Jun, 2015 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 ; Dyslipidemia E78.5 ; Dyspnea on exertion R06.09 ; Family history of cardiovascular disease Z82.49 and Borderline abnormal thyroid function test R94.[address] [address] May, Other emphysema J43.8 ; Smoking F17.200 and Tobacco abuse counseling Z71.[address] [address] May, Cough R05 and Other emphysema J43.[address] [address] Apr, [address] [address] Apr, Skin lesion of back L98.9 and Skin lesion L98.[address] [address] Apr, Skin lesion of back L98.9 and Hot flashes N95.[address] [address] Mar, Bronchitis J40 [address] [address] Mar, Acute pharyngitis, unspecified J02.9 and Upper respiratory infection with cough and congestion J06.[address] [address] Mar, Bronchitis J40 ; Shortness of breath R06.02 ; Encounter for screening mammogram for breast cancer Z12.31 and Yeast infection B37.[address] [address] Jan, Other and unspecified hyperlipidemia 272.4 and Hypothyroidism 244.[address] [address] Dec, [address] [place] [address] Nov, Diarrhea 787.91 and Nausea 787.02 [facility] [place] [address] [place] [address] October, Other and unspecified hyperlipidemia 272.4 [facility] [place] [address] [place] [address] October, Lumbago 724.2 [facility] [address] [place] [id number] [place] [address] Sep, [facility] [address] [place] [id number] [place] [address] Sep, [facility] [address] [place] [id number] [place] [address] Aug, [facility] [address] [place] [address] Aug, [facility] [place] [address] [place] [address] Jun, [facility] [address] [place] [id number] [place] [address] Jun, [facility] [address] [place] [id number] [place] [address] May, [facility] [address] [place] [id number] [place] [address] May, [facility] [place] [address] [place] [address] May, [facility] [place] [address] [place] [address] Apr, [facility] [address] [place] [id number] [place] [address] Apr, [facility] [place] [address] [place] [address] Mar, [facility] [address] [place] [id number] [address] Mar, [facility] [place] [address] [place] [address] Mar, [facility] [address] [id number] [address] Mar, [facility] [address] [id number] [address] Mar, [facility] [place] [address] [place] [facility] [place] [address] Mar, [facility] [place] [address] [place] [address] Feb, [facility] [address] [id number] [address] Feb, [facility] [place] [address] [place] [facility] [place] [address] Jan, [facility] [id number] [address] Jan, [facility] [id number] [address] Jan, [facility] [id number] [address] Jan, [facility] [place] [address] [place] [address] Jan, [facility] [id number] [address] Jan, [facility] [place] [address] [place] [address] Dec, [facility] [id number] [address] Dec, [facility] [id number] [address] Dec, [facility] [id number] [address] Dec, [facility] [place] [address] [place] [address] Dec, [facility] [place] [address] [place] [address] Dec, [facility] [id number] [address] Dec, [facility] [place] [address] [place] [address] October, [facility] [id number] [address] October, [facility] [id number] [address] October, [facility] [place] [address] [place] [address] Sep, [facility] [id number] [address] Sep, [facility] [place] [address] [place] [address] Sep, [facility] [id number] [address] Sep, [facility] [id number] [address] Aug, [facility] [place] [address] [place] [address] Aug, [facility] [id number] [address] Jun, [facility] [id number] [address] Jun, [facility] [place] [address] [place] [address] Jun, [facility] [place] [address] [place] [address] May, [facility] [id number] [address] May, [facility] [id number] [address] May, [facility] [address] [place] [address] May, [facility] [address] [place] [address] Apr, [facility] [address] [facility] [id number] [address] Apr, [facility] [address] [facility] [id number] [address] Feb, [facility] [address] [place] [address] Feb, IMMUNIZATIONS No Known Immunizations SOCIAL HISTORY Never Assessed REASON FOR VISIT wrist pain since myra. Kerrie, needs a couple moles looked at. PLAN OF CARE Activity Details Follow Up apt for procedure- mole removal Reason: VITAL SIGNS Height 65 in 2018-09-01 Weight 145.9 lbs 2018-09-01 Temperature 97.6 degrees Fahrenheit 2018-09-01 Heart Rate 78 bpm 2018-09-01 Respiratory Rate 16 2018-09-01 BMI 24.28 kg/m2 2018-09-01 Blood pressure systolic 110 mmHg 2018-09-01 Blood pressure diastolic 68 mmHg 2018-09-01 MEDICATIONS Medication Instructions Dosage Frequency Start Date End Date Duration Status Ambien 10 mg TAKE 1 TABLET BY MOUTH DAILY AT BEDTIME NEEDED FOR SLEEP 28 Active Spiriva Respimat 2.5 MCG/ACT INHALE 2 PUFFS DAILY 30 Active Aspirin 81 mg take 1 tablet (81 mg) by oral route once daily Mar, Active Zetia 10 mg take 1 tablet (10 mg) by oral route once daily Jun, Active pantoprazole 40 mg take 1 tablet (40 mg) by oral route 2 times per day Mar, Active PredniSONE 20 mg Orally Once a day 2 x 3 days, 1 x3 days, 1/2 x 4 days 24h Aug, 10 days Active D3-50 29820 UNIT Active Crestor 10 MG Orally Once a day 1 tablet 24h Active Fish Oil 1000 MG Orally Once a day 1 capsule 24h Active Venlafaxine HCl 37.5 MG TAKE 1 TABLET BY MOUTH TWICE DAILY WITH FOOD. 30 Active Verapamil HCl ER 180 MG Orally Once a day 1 tablet 24h Active RESULTS No Results PROCEDURES No Known [...]
--- OUTSIDE RECORDS SUMMARY | 2019-04-01 10:37 | XMS REPORT ---
Author Author Migration, Doctor Organization [facility] Address Unknown Phone Unavailable Care Team Providers Care Associate Research Scientist Name Role Phone Migration, Doctor Unavailable Unavailable PROBLEMS Type Condition ICD9-CM Code [id number] Code Onset Dates Condition Status SNOMED Code Problem Skin lesion of back L98.9 Active 71076179 Problem Hot flashes N95.1 Active 711320110 Problem Other emphysema J43.8 Active 50504774 Problem Smoking F17.200 Active 27558677 Problem Gastroparesis K31.84 Active 099322502 Problem Familial hypercholesterolemia E78.0 Active 881947436 Problem 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 21855522 Problem Dyslipidemia E78.5 Active 591888672 Problem Other and unspecified hyperlipidemia E78.5 Active 70510839 Problem Vitamin D deficiency E55.9 Active 19759193 Problem Hypertension I10 Active 77293019 Problem Facial rash R21 Active 593728137 Problem Elevated LFTs R79.89 Active 064498142 Problem Insomnia, unspecified type G47.00 Active 420140410 Problem Anxiety F41.9 Active 23656501 Problem Other insomnia G47.09 Active 250179302 Problem Primary insomnia F51.01 Active 8002222 Problem Chronic obstructive pulmonary disease, unspecified COPD type J44.9 Active 11784412 Problem Family history of cardiovascular disease Z82.49 Active 691112863 Problem Menopausal hot flushes N95.1 Active 465853920 Problem Borderline abnormal thyroid function test R94.6 Active 020733965 Problem Dyspnea on exertion R06.09 Active 44345475 Problem Atrial tachycardia I47.1 Active 044784837 Problem History of thyroidectomy E89.0 Active 280677166 Problem Thyroiditis E06.9 Active 87563854 Problem Essential hypertension I10 Active 59117550 ALLERGIES No Information ENCOUNTERS Encounter Location Date Diagnosis [facility] [address] [place] [address] Sep, [facility] [address] [place] [address] Sep, [facility] [address] [place] [address] [place] [address] Sep, [facility] [address] [place] [address] [place] [address] Sep, Smoking F17.200 and Upper respiratory infection with cough and congestion J06.9 [facility] [address] [place] [address] [place] [address] Sep, Infiltrate noted on imaging study R93.89 [facility] [address] [place] [address] [place] [address] Sep, Rib pain R07.81 [facility] [address] [place] [address] [place] [address] Aug, Rib pain R07.81 [facility] [address] [place] [address] [place] [address] Aug, [facility] [address] [place] [address] [place] [address] Aug, [facility] [address] [place] [address] [place] [address] Aug, [facility] [address] [place] [address] [place] [address] Aug, [facility] [address] [place] [address] [place] [address] Aug, Cough R05 [facility] [address] [place] [address] [place] [address] Aug, Right hand pain M79.641 and Atypical pigmented skin lesion L81.9 [facility] [address] [place] [address] [place] [address] Aug, [facility] [address] [place] [address] Aug, De Quervain's disease (radial styloid tenosynovitis) M65.4 and Atypical mole D22.9 [facility] [address] [place] [address] Jul, Cough R05 [facility] [address] [place] [address] Jun, Upper respiratory tract infection, unspecified type J06.9 [facility] [address] [place] [address] 07 Jun, 2018 Neck pain on left side M54.2 [facility] [address] [facility] [id number] [place] [address] 07 Jun, 2018 [facility] [address] [place] [address] 04 Jun, 2018 Neck pain on left side M54.2 and Neck nodule R22.1 [facility] [address] [place] [address] Jun, Acute gastritis without hemorrhage, unspecified gastritis type K29.00 [facility] [address] [place] [address] May, Chronic nonintractable headache, unspecified headache type R51 [facility] [address] [place] [address] 06 Apr, 2018 Subacute frontal sinusitis J01.10 and Chronic nonintractable headache, unspecified headache type R51 [facility] [address] [place] [address] Apr, [facility] [address] [place] [address] Mar, Encounter for immunization Z23 [address] [address] 30 Feb, 2018 Primary insomnia F51.01 [facility] [address] [place] [address] 28 Feb, 2018 Primary insomnia F51.01 [facility] [address] [place] [address] 07 Feb, 2018 Mucous cyst of nasal sinus J34.1 [facility] [address] [place] [address] Jan, [address] [address] Dec, [address] [address] 12 Dec, 2017 Primary insomnia F51.01 ; Anxiety F41.9 and Menopausal hot flushes N95.[address] [address] October, Dry mouth, unspecified R68.2 ; Pharyngitis, unspecified etiology J02.9 and Primary insomnia F51.01 [facility] [place] [address] [place] [address] October, [facility] [place] [address] [place] [address] Sep, [facility] [place] [address] [place] [address] Sep, Hemoptysis R04.2 [facility] [place] [address] [place] [address] Sep, Primary insomnia F51.01 [facility] [place] [address] [place] [address] Sep, Adverse effect of drug, initial encounter T88.7XXA [facility] [place] [address] [place] [address] Aug, Adverse effect of drug, initial encounter T88.7XXA [facility] [place] [address] [place] [address] Aug, Primary insomnia F51.01 [facility] [address] [address] Jul, [facility] [address] [address] Jul, Primary insomnia F51.01 [facility] [address] [facility] [id number] [address] Jul, [facility] [place] [address] [place] [address] Jul, Atrial tachycardia I47.1 [facility] [place] [address] [place] [address] Jul, [facility] [address] [address] Jun, Flu-like symptoms R68.89 and Chronic obstructive pulmonary disease, unspecified COPD type J44.9 [facility] [place] [address] [place] [address] Jun, [facility] [place] [address] [place] [address] Jun, [facility] [place] [address] [place] [address] Jun, [facility] [address] [address] Jun, Epigastric pain R10.13 ; Diarrhea, unspecified type R19.7 and Non-intractable vomiting without nausea, unspecified vomiting type R11.11 [address] [address] May, [facility] [address] [address] May, Chronic nonintractable headache, unspecified headache type R51 [facility] [address] [address] May, [facility] [address] [address] May, Essential hypertension I10 ; Thyroiditis E06.9 and Nonintractable episodic headache, unspecified headache type R51 [facility] [address] [address] 18 Feb, 2017 Dyslipidemia E78.5 ; Vitamin D deficiency E55.9 and Atherosclerosis of left carotid artery I65.[address] [address] Jan, [address] [place] [address] Dec, [address] [address] Dec, Atrial tachycardia I47.1 ; History of thyroidectomy E89.0 ; Primary insomnia F51.01 and Tobacco use Z72.[address] [address] October, Galactorrhea O92.6 [facility] [address] [place] [address] October, [facility] [address] [place] [address] October, [facility] [place] [address] [place] [address] October, [facility] [place] [address] [place] [address] October, Cough R05 and Other chest pain R07.89 [facility] [place] [address] [place] [address] Sep, Dysuria R30.0 ; Acute cystitis without hematuria N30.00 and Chest tightness or pressure R07.89 [facility] [place] [address] [place] [address] Sep, [facility] [place] [address] [place] [address] Sep, Acute bilateral low back pain without sciatica M54.5 [facility] [place] [address] [place] [address] Aug, Dermatitis L30.9 ; Other insomnia G47.09 and Anxiety F41.9 [facility] [place] [address] [place] [address] Aug, [facility] [place] [address] [place] [address] Aug, Hypertension I10 ; Dyslipidemia E78.5 and Vitamin D deficiency E55.[address] [address] Jun, Anxiety F41.9 and Hypertension I10 [facility] [address] [facility] [id number], [place] [address] Jun, [facility] [place] [address] [place] [address] Jun, Anxiety F41.9 and Hypertension I10 [facility] [place] [address] [place] [address] Jun, [facility] [place] [address] [place] [address] May, [facility] [place] [address] [place] [address] 05 May, 2016 Acute upper back pain M54.9 and Hypertension I10 [facility] [place] [address] [place] [address] 16 Apr, 2016 [facility] [place] [address] [place] [address] 10 Apr, 2016 Mid-back pain, acute M54.9 ; Dyslipidemia E78.5 and Hypertension I10 [facility] [place] [address] [place] [address] 04 Apr, 2016 [facility] [place] [address] [place] [address] Apr, [facility] [place] [address] [place] [address] Feb, Familial hypercholesterolemia E78.0 ; Occlusion and stenosis of left carotid artery I65.22 and Vitamin D deficiency E55.9 [facility] [place] [address] [place] [address] Feb, [facility] [place] [address] [place] [address] Feb, Fever, unspecified fever cause R50.9 and Acute non-recurrent maxillary sinusitis J01.00 [facility] [place] [address] [place] [address] Jan, [facility] [place] [address] [place] [address] Jan, [facility] [address] [address] Jan, Nodule of neck R22.1 and Night sweats R61 [facility] [place] [address] [place] [address] Dec, [facility] [place] [address] [place] [address] Dec, [facility] [place] [address] [place] [address] Nov, [facility] [place] [address] [place] [address] Nov, [facility] [place] [address] [place] [address] October, Acute upper respiratory infection, unspecified J06.9 ; Other viral agents as the cause of diseases classified elsewhere B97.89 and Calculus of gallbladder without cholecystitis without obstruction K80.[address] [address] Sep, Insomnia, unspecified type G47.00 ; Hypertension I10 and Elevated LFTs R79.[address] [address] Sep, Bleeding after intercourse N93.0 and Dysuria R30.[address] [address] Aug, Dysuria R30.0 and Pyuria N39.[address] [address] Aug, Hypertension I10 ; Insomnia, unspecified type G47.00 and 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 [address] 12 Jul, 2015 Pain of upper extremity M79.603 ; Hypertension I10 and Pure hypercholesterolemia E78.[address] [address] 09 Jul, 2015 Physical exam, pre-employment Z02.1 ; Visit for TB skin test Z11.1 ; Facial rash R21 and 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 [address] 04 Jul, 2015 Other and unspecified hyperlipidemia E78.5 ; Vitamin D deficiency E55.9 and Borderline abnormal thyroid function test R94.[address] [address] Jun, 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 ; Dyslipidemia E78.5 ; Dyspnea on exertion R06.09 ; Family history of cardiovascular disease Z82.49 and Borderline abnormal thyroid function test R94.[address] [address] May, Other emphysema J43.8 ; Smoking F17.200 and Tobacco abuse counseling Z71.[address] [address] May, Cough R05 and Other emphysema J43.[address] [address] Apr, [address] [address] Apr, Skin lesion of back L98.9 and Skin lesion L98.[address] [address] Apr, Skin lesion of back L98.9 and Hot flashes N95.[address] [address] Mar, Bronchitis J40 [address] [address] Mar, Acute pharyngitis, unspecified J02.9 and Upper respiratory infection with cough and congestion J06.[address] [address] Mar, Bronchitis J40 ; Shortness of breath R06.02 ; Encounter for screening mammogram for breast cancer Z12.31 and Yeast infection B37.[address] [address] Jan, Other and unspecified hyperlipidemia 272.4 and Hypothyroidism 244.[address] [address] Dec, [address] [address] Nov, Diarrhea 787.91 and Nausea 787.[address] [address] October, Other and unspecified hyperlipidemia 272.[address] [address] October, Lumbago 724.2 [facility] [address] [facility] [id number], [place] [address] 14 Sep, 2014 [facility] [address] [facility] [id number], [place] [address] 13 Sep, 2014 [facility] [address] [facility] [id number], [place] [address] Aug, [facility] [place] [address] [place] [address] Aug, [facility] [place] [address] [place] [address] Jun, [facility] [address] [place] [id number] [address] Jun, [facility] [address] [id number], [place] [address] May, [facility] [address] [address] May, [facility] [place] [address] [place] [address] May, [facility] [place] [address] [place] [address] Apr, [facility] [address] [id number], [place] [address] Apr, [facility] [place] [address] [place] [address] Mar, [facility] [address] [id number], [place] [address] Mar, [facility] [place] [address] [place] [address] Mar, [facility] [address] [id number] [address] Mar, [facility] [address] [id number], [place] [address] Mar, [facility] [place] [address] [facility] [place] [address] Mar, [facility] [place] [address] [facility] [place] [address] Feb, [facility] [address] [facility] [id number], [place] [address] Feb, [facility] [place] [address] [place] [address] Jan, [facility] [address] [facility] [id number], [place] [address] Jan, [facility] [address] [facility] [id number], [place] [address] Jan, [facility] [address] [facility] [id number], [place] [address] Jan, [facility] [place] [address] [place] [address] Jan, [facility] [address] [id number], [place] [address] Jan, [facility] [place] [address] [place] [address] Dec, [facility] [address] [facility] [id number], [place] [address] Dec, [facility] [address] [id number], [place] [address] Dec, [facility] [address] [id number], [place] [address] Dec, [facility] [place] [address] [place] [address] Dec, [facility] [place] [address] [place] [address] Dec, [facility] [address] [facility] [id number], [place] [address] Dec, [facility] [place] [address] [place] [address] October, [facility] [address] [id number], [place] [address] October, [facility] [address] [facility] [id number], [place] [address] October, [facility] [place] [address] [place] [address] Sep, [facility] [address] [facility] [id number], [place] [address] Sep, [facility] [place] [address] [place] [address] Sep, [facility] [address] [facility] [id number], [place] [address] Sep, [facility] [id number] [place] [address] Aug, [facility] [place] [address] [place] [address] Aug, [facility] [address] [id number], [place] [address] Jun, [facility] [address] [id number], [place] [address] Jun, [facility] [place] [address] [place] [address] Jun, [facility] [place] [address] [place] [address] May, [facility] [address] [id number], [place] [address] May, [facility] [address] [id number], [place] [address] May, [facility] [place] [address] [place] [address] May, [facility] [place] [address] [place] [address] Apr, [facility] [address] [id number], [place] [address] Apr, [facility] [address] [id number], [place] [address] Feb, [facility] [place] [address] [place] [address] 17 Feb, 2013 IMMUNIZATIONS No Known Immunizations SOCIAL HISTORY Never Assessed REASON FOR VISIT [facility] [place] VITAL SIGNS MEDICATIONS Unknown [...]
--- OUTSIDE RECORDS SUMMARY | 2019-04-01 10:38 | XMS REPORT ---
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 14894232 Problem Dyslipidemia E78.5 Active 300826023 Problem Other and unspecified hyperlipidemia E78.5 Active 25498394 Problem Vitamin D deficiency E55.9 Active 21059669 Problem Hypertension I10 Active 94977965 Problem Facial rash R21 Active 883410762 Problem Elevated LFTs R79.89 Active 466496307 Problem Insomnia, unspecified type G47.00 Active 342171369 Problem Anxiety F41.9 Active 95890238 Problem Other insomnia G47.09 Active 920541784 Problem Primary insomnia F51.01 Active 9208174 Problem Chronic obstructive pulmonary disease, unspecified COPD type J44.9 Active 38894571 Problem Family history of cardiovascular disease Z82.49 Active 344201614 Problem Menopausal hot flushes N95.1 Active 759383089 Problem Borderline abnormal thyroid function test R94.6 Active 830297863 Problem Dyspnea on exertion R06.09 Active 45217416 Problem Atrial tachycardia I47.1 Active 842057779 Problem History of thyroidectomy E89.0 Active 504268522 Problem Thyroiditis E06.9 Active 77807215 Problem Essential hypertension I10 Active 43432323 ALLERGIES No Information ENCOUNTERS Encounter Location Date Diagnosis [facility] [address] [place] [address] Sep, [facility] [address] [place] [address] Sep, [facility] [address] [place] [address] [place] [address] Sep, Smoking F17.200 and Upper respiratory infection with cough and congestion J06.9 [facility] [address] [place] [address] [place] [address] Sep, Infiltrate noted on imaging study R93.89 [facility] [address] [address] Sep, Rib pain R07.81 [facility] [address] [place] [address] [place] [address] Aug, Rib pain R07.81 [facility] [address] [address] Aug, [facility] [address] [address] Aug, [facility] [address] [address] Aug, [facility] [address] [place] [address] [place] [address] Aug, [facility] [address] [place] [address] [place] [address] Aug, Cough R05 [facility] [address] [address] Aug, Right hand pain M79.641 and Atypical pigmented skin lesion L81.9 [facility] [address] [place] [address] [place] [address] Aug, [facility] [address] [place] [address] Aug, De Quervain's disease (radial styloid tenosynovitis) M65.4 and Atypical mole D22.9 [facility] [address] [place] [address] Jul, Cough R05 [facility] [address] [place] [address] Jun, Upper respiratory tract infection, unspecified type J06.9 [facility] [address] [place] [address] Jun, Neck pain on left side M54.2 [facility] [address] [facility] [id number] [place] [address] 07 Jun, [address] [facility] [address] [place] [address] 04 Jun, 2018 Neck pain on left side M54.2 and Neck nodule R22.1 [facility] [address] [place] [address] 02 Jun, 2018 Acute gastritis without hemorrhage, unspecified gastritis type K29.00 [facility] [address] [place] [address] May, Chronic nonintractable headache, unspecified headache type R51 [facility] [address] [place] [address] Apr, Subacute frontal sinusitis J01.10 and Chronic nonintractable headache, unspecified headache type R51 [facility] [address] [place] [address] Apr, [facility] [address] [place] [address] Mar, Encounter for immunization Z23 [address] [address] 30 Feb, 2018 Primary insomnia F51.01 [facility] [address] [place] [address] 28 Feb, 2018 Primary insomnia F51.01 [facility] [address] [place] [address] 07 Feb, 2018 Mucous cyst of nasal sinus J34.1 [facility] [address] [place] [address] Jan, [facility] [address] [address] Dec, [facility] [address] [address] Dec, Primary insomnia F51.01 ; Anxiety F41.9 and Menopausal hot flushes N95.1 [facility] [place] [address] [place] [address] October, Dry mouth, unspecified R68.2 ; Pharyngitis, unspecified etiology J02.9 and Primary insomnia F51.01 [facility] [place] [address] [place] [address] October, [facility] [place] [address] [place] [address] Sep, [facility] [place] [address] [place] [address] Sep, Hemoptysis R04.2 [facility] [place] [address] [place] [address] Sep, Primary insomnia F51.01 [facility] [place] [address] [place] [address] Sep, Adverse effect of drug, initial encounter T88.7XXA [facility] [place] [address] [place] [address] Aug, Adverse effect of drug, initial encounter T88.7XXA [facility] [place] [address] [place] [address] Aug, Primary insomnia F51.01 [facility] [place] [address] [place] [address] Jul, [facility] [place] [address] [place] [address] Jul, Primary insomnia F51.01 [facility] [address] [facility] [id number] [place] [address] Jul, [facility] [place] [address] [place] [address] Jul, Atrial tachycardia I47.1 [facility] [place] [address] [place] [address] Jul, [facility] [place] [address] [place] [address] Jun, Flu-like symptoms R68.89 and Chronic obstructive pulmonary disease, unspecified COPD type J44.9 [facility] [place] [address] [place] [address] Jun, [facility] [place] [address] [place] [address] Jun, [facility] [address] [address] Jun, [facility] [address] [address] Jun, Epigastric pain R10.13 ; Diarrhea, unspecified type R19.7 and Non-intractable vomiting without nausea, unspecified vomiting type R11.11 [address] [place] [address] May, [facility] [address] [address] May, Chronic nonintractable headache, unspecified headache type R51 [facility] [address] [address] 06 May, 2017 [facility] [address] [address] May, Essential hypertension I10 ; Thyroiditis E06.9 and Nonintractable episodic headache, unspecified headache type R51 [facility] [address] [address] Feb, Dyslipidemia E78.5 ; Vitamin D deficiency E55.9 and Atherosclerosis of left carotid artery I65.22 [facility] [address] [address] Jan, [address] [address] Dec, [facility] [address] [address] Dec, Atrial tachycardia I47.1 ; History of thyroidectomy E89.0 ; Primary insomnia F51.01 and Tobacco use Z72.[address] [address] October, Galactorrhea O92.6 [facility] [address] [address] October, [facility] [address] [address] October, [facility] [address] [place] [address] October, [facility] [place] [address] [place] [address] October, Cough R05 and Other chest pain R07.89 [facility] [place] [address] [place] [address] Sep, Dysuria R30.0 ; Acute cystitis without hematuria N30.00 and Chest tightness or pressure R07.89 [facility] [address] [address] Sep, [facility] [address] [address] Sep, Acute bilateral low back pain without sciatica M54.5 [facility] [place] [address] [place] [address] Aug, Dermatitis L30.9 ; Other insomnia G47.09 and Anxiety F41.9 [facility] [address] [place] [address] Aug, [facility] [place] [address] [place] [address] Aug, Hypertension I10 ; Dyslipidemia E78.5 and Vitamin D deficiency E55.[address] [address] Jun, Anxiety F41.9 and Hypertension I10 [facility] [address] [facility] [id number] [address] Jun, [facility] [place] [address] [place] [address] Jun, Anxiety F41.9 and Hypertension I10 [facility] [place] [address] [place] [address] Jun, [facility] [address] [address] May, [facility] [place] [address] [place] [address] May, Acute upper back pain M54.9 and Hypertension I10 [facility] [place] [address] [place] [address] 16 Apr, [address] [address] 10 Apr, 2016 Mid-back pain, acute M54.9 ; Dyslipidemia E78.5 and Hypertension I10 [facility] [place] [address] [place] [address] Apr, [facility] [place] [address] [place] [address] Apr, [facility] [address] [address] Feb, Familial hypercholesterolemia E78.0 ; Occlusion and stenosis of left carotid artery I65.22 and Vitamin D deficiency E55.9 [facility] [address] [place] [address] Feb, [facility] [address] [address] Feb, Fever, unspecified fever cause R50.9 and Acute non-recurrent maxillary sinusitis J01.00 [facility] [place] [address] [place] [address] Jan, [facility] [address] [address] Jan, [address] [address] Jan, Nodule of neck R22.1 and Night sweats R61 [address] [address] Dec, [facility] [address] [address] Dec, [address] [address] Nov, [address] [address] Nov, [address] [address] October, Acute upper respiratory infection, unspecified J06.9 ; Other viral agents as the cause of diseases classified elsewhere B97.89 and Calculus of gallbladder without cholecystitis without obstruction K80.[address] [address] Sep, Insomnia, unspecified type G47.00 ; Hypertension I10 and Elevated LFTs R79.[address] [address] Sep, Bleeding after intercourse N93.0 and Dysuria R30.[address] [address] Aug, Dysuria R30.0 and Pyuria N39.[address] [address] Aug, Hypertension I10 ; Insomnia, unspecified type G47.00 and 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 [address] 12 Jul, 2015 Pain of upper extremity M79.603 ; Hypertension I10 and Pure hypercholesterolemia E78.[address] [address] 09 Jul, 2015 Physical exam, pre-employment Z02.1 ; Visit for TB skin test Z11.1 ; Facial rash R21 and 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 [address] 04 Jul, 2015 Other and unspecified hyperlipidemia E78.5 ; Vitamin D deficiency E55.9 and Borderline abnormal thyroid function test R94.[address] [address] Jun, 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 ; Dyslipidemia E78.5 ; Dyspnea on exertion R06.09 ; Family history of cardiovascular disease Z82.49 and Borderline abnormal thyroid function test R94.[address] [address] May, Other emphysema J43.8 ; Smoking F17.200 and Tobacco abuse counseling Z71.[address] [address] May, Cough R05 and Other emphysema J43.[address] [address] Apr, [address] [address] Apr, Skin lesion of back L98.9 and Skin lesion L98.[address] [address] 03 Apr, 2015 Skin lesion of back L98.9 and Hot flashes N95.[address] [address] Mar, Bronchitis J40 [address] [address] Mar, Acute pharyngitis, unspecified J02.9 and Upper respiratory infection with cough and congestion J06.[address] [address] Mar, Bronchitis J40 ; Shortness of breath R06.02 ; Encounter for screening mammogram for breast cancer Z12.31 and Yeast infection B37.[address] [address] Jan, Other and unspecified hyperlipidemia 272.4 and Hypothyroidism 244.[address] [address] Dec, [address] [address] Nov, Diarrhea 787.91 and Nausea 787.[address] [address] October, Other and unspecified hyperlipidemia 272.[address] [address] October, Lumbago 724.[address] [id number] [address] Sep, [place] [id number] [address] Sep, [facility] [address] [address] [id number] [address] Aug, [facility] [address] [place] [address] Aug, [facility] [address] [place] [address] Jun, [facility] [address] [id number] [address] Jun, [facility] [address] [address] [id number] [address] May, [facility] [address], [place] [address] May, [facility] [address] [place] [address] May, [facility] [address] [place] [address] Apr, [facility] [address] [id number], [place] [address] Apr, [facility] [address] [place] [address] Mar, [facility] [address], [place] [address] Mar, [facility] [address] [place] [address] Mar, [facility] [address] [address] [id number], [place] [address] Mar, [facility] [address], [place] [address] Mar, 2013 [facility] [address] [place] [address] Mar, [facility] [address] [place] [address] Feb, [facility] [address] [id number] [place] [address] Feb, [facility] [place] [address] [place] [place] [address] Jan, [facility] [place] [facility] [address] [facility] [id number] [place] [address] Jan, [facility] [place] [facility] [address] [id number] [place] [address] Jan, [facility] [place] [facility] [address] [address] [id number] [place] [address] Jan, [facility] [address] [place] [address] Jan, [facility] [place] [facility] [address] [address] [id number] [place] [address] Jan, [facility] [address] [address] [place] [address] Dec, [facility] [place] [facility] [address] [id number], [place] [address] Dec, [facility] [place] [facility] [address] [id number], [place] [address] Dec, [facility] [place] [facility] [address] [id number], [place] [address] Dec, [facility] [address] [place] [address] Dec, [facility] [place] [address] [place] [address] Dec, [facility] [place] [facility] [address] [id number] [place] [address] Dec, [facility] [address] [address] [place] [address] October, [facility] [place] [facility] [address] [id number], [place] [address] October, [facility] [place] [facility] [address] [id number] [address] October, [facility] [address] [place] [address] Sep, [facility] [address] [id number], [place] [address] Sep, [facility] [address] [address] [place] [address] Sep, [facility] [id number] [address] Sep, [facility] [place] [facility] [id number] [address] Aug, [facility] [address] [place] [address] Aug, [facility] [address] [id number], [place] [address] Jun, [facility] [id number] [address] Jun, [facility] [place] [address] [place] [address] Jun, [facility] [place] [address] [place] [address] May, [facility] [address] [id number] [address] May, [facility] [address] [id number] [address] May, [facility] [place] [address] [place] [address] May, [facility] [place] [address] [place] [address] Apr, [facility] [address] [id number], [place] [address] Apr, [facility] [id number], [place] [address] 19 Feb, 2013 [facility] [place] [address] [place] [address] 17 Feb, 2013 IMMUNIZATIONS No Known Immunizations SOCIAL HISTORY Never Assessed [place]AS[place] [place] [...]
--- OUTSIDE RECORDS SUMMARY | 2019-04-01 10:38 | XMS REPORT ---
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 Name Role Phone Migration, Doctor Unavailable Unavailable PROBLEMS Type Condition ICD9-CM Code TLM30-RU Code Onset Dates Condition Status SNOMED Code Problem Skin lesion of back L98.9 Active 44775755 Problem Hot flashes N95.1 Active 117724539 Problem Other emphysema J43.8 Active 76991406 Problem Smoking F17.200 Active 07727764 Problem Gastroparesis K31.84 Active 710993641 Problem Familial hypercholesterolemia E78.0 Active 195235039 Problem 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 05888731 Problem Dyslipidemia E78.5 Active 242475025 Problem Other and unspecified hyperlipidemia E78.5 Active 76645634 Problem Vitamin D deficiency E55.9 Active 67301107 Problem Hypertension I10 Active 66397758 Problem Facial rash R21 Active 765022936 Problem Elevated LFTs R79.89 Active 607619457 Problem Insomnia, unspecified type G47.00 Active 251674251 Problem Anxiety F41.9 Active 39145883 Problem Other insomnia G47.09 Active 499732229 Problem Primary insomnia F51.01 Active 8034898 Problem Chronic obstructive pulmonary disease, unspecified COPD type J44.9 Active 25970773 Problem Family history of cardiovascular disease Z82.49 Active 754425009 Problem Menopausal hot flushes N95.1 Active 140070492 Problem Borderline abnormal thyroid function test R94.6 Active 503385738 Problem Dyspnea on exertion R06.09 Active 44686003 Problem Atrial tachycardia I47.1 Active 968906077 Problem History of thyroidectomy E89.0 Active 418801690 Problem Thyroiditis E06.9 Active 78500748 Problem Essential hypertension I10 Active 47194720 ALLERGIES No Information ENCOUNTERS Encounter Location Date Diagnosis [facility] [address] [place] [address] Sep, [facility] [address] [place] [address] Sep, [facility] [address] [place] [address] Sep, Infiltrate noted on imaging study R93.89 [facility] [address] [facility] [address] [place] [address] Sep, Rib pain R07.81 [facility] [address] [facility] [address] [place] [address] Aug, Rib pain R07.81 [facility] [address] [facility] [address] [place] [address] Aug, [facility] [address] [facility] [address] [place] [address] Aug, [facility] [address] [place] [address] Aug, [facility] [address] [facility] [address] [place] [address] Aug, [facility] [address] [place] [address] Aug, Cough R05 [facility] [address] [facility] [address] [place] [address] Aug, Right hand pain M79.641 and Atypical pigmented skin lesion L81.9 [facility] [address] [facility] [address] [place] [address] Aug, [facility] [address] [place] [address] Aug, De Quervain's disease (radial styloid tenosynovitis) M65.4 and Atypical mole D22.9 [facility] [address] [place] [address] Jul, Cough R05 [facility] [address] [facility] [address] [place] [address] Jun, Upper respiratory tract infection, unspecified type J06.9 [facility] [address] [place] [address] Jun, Neck pain on left side M54.2 [facility] [address] [facility] [id number] [place] [address] Jun, [facility] [address] [place] [address] 04 Jun, 2018 Neck pain on left side M54.2 and Neck nodule R22.1 [facility] [address] [place] [address] 02 Jun, 2018 Acute gastritis without hemorrhage, unspecified gastritis type K29.[address] [facility] [address] [place] [address] May, Chronic nonintractable headache, unspecified headache type R51 [facility] [address] [place] [address] Apr, Subacute frontal sinusitis J01.10 and Chronic nonintractable headache, unspecified headache type R51 [facility] [address] [place] [address] 02 Apr, [address] [facility] [address] [place] [address] Mar, Encounter for immunization Z23 [address] [address] 30 Feb, 2018 Primary insomnia F51.01 [facility] [address] [place] [address] 28 Feb, 2018 Primary insomnia F51.01 [facility] [address] [place] [address] 07 Feb, 2018 Mucous cyst of nasal sinus J34.1 [facility] [address] [place] [address] Jan, [address] [address] Dec, [address] [address] Dec, Primary insomnia F51.01 ; Anxiety F41.9 and Menopausal hot flushes N95.[address] [address] October, Dry mouth, unspecified R68.2 ; Pharyngitis, unspecified etiology J02.9 and Primary insomnia F51.[address] [address] October, [facility] [place] [address] [place] [address] Sep, [facility] [place] [address] [place] [address] Sep, [facility]optysis R04.2 [facility] [address] [place] [address] Sep, Primary insomnia F51.01 [facility] [address] [place] [address] Sep, Adverse effect of drug, initial encounter T88.7XXA [facility] [address] [place] [address] Aug, Adverse effect of drug, initial encounter T88.7[facility] [address] [place] [address] Aug, Primary insomnia F51.01 [facility] [address] [place] [address] Jul, [facility] [address] [address] Jul, Primary insomnia F51.01 [facility] [address] [facility] [id number] [address] Jul, [facility] [address] [address] Jul, Atrial tachycardia I47.1 [facility] [address] [place] [address] Jul, [facility] [address] [address] Jun, Flu-like symptoms R68.89 and Chronic obstructive pulmonary disease, unspecified COPD type J44.9 [facility] [address] [place] [address] Jun, [facility] [address] [place] [address] Jun, [facility] [address] [address] Jun, [facility] [place] [address] [place] [address] Jun, Epigastric pain R10.13 ; Diarrhea, unspecified type R19.7 and Non-intractable vomiting without nausea, unspecified vomiting type R11.11 [place] [id number] [address] 15 May, 2017 [facility] [address] [address] May, Chronic nonintractable headache, unspecified headache type R51 [facility] [address] [address] May, [facility] [address] [address] 04 May, 2017 Essential hypertension I10 ; Thyroiditis E06.9 and Nonintractable episodic headache, unspecified headache type R51 [address] [address] Feb, Dyslipidemia E78.5 ; Vitamin D deficiency E55.9 and Atherosclerosis of left carotid artery I65.22 [facility] [address] [place] [address] Jan, [id number] [address] Dec, [address] [address] Dec, Atrial tachycardia I47.1 ; History of thyroidectomy E89.0 ; Primary insomnia F51.01 and Tobacco use Z72.0 [facility] [address] [address] October, Galactorrhea O92.[address] [facility] [address] [address] October, [facility] [address] [address] October, [facility] [address] [address] October, [facility] [address] [address] October, Cough R05 and Other chest pain R07.89 [facility] [address] [place] [address] Sep, Dysuria R30.0 ; Acute cystitis without hematuria N30.00 and Chest tightness or pressure R07.89 [facility] [address] [place] [address] Sep, [facility] [address] [place] [address] Sep, Acute bilateral low back pain without sciatica M54.5 [facility] [address] [place] [address] Aug, Dermatitis L30.9 ; Other insomnia G47.09 and Anxiety F41.9 [facility] [address] [place] [address] Aug, [facility] [address] [address] Aug, Hypertension I10 ; Dyslipidemia E78.5 and Vitamin D deficiency E55.9 [facility] [address] [place] [address] Jun, Anxiety F41.9 and Hypertension I10 [facility] [address] [facility] [id number] [place] [address] Jun, [facility] [address] [place] [address] Jun, Anxiety F41.9 and Hypertension I10 [facility] [address] [place] [address] Jun, [facility] [address] [place] [address] May, [facility] [address] [place] [address] May, Acute upper back pain M54.9 and Hypertension I10 [facility] [address] [place] [address] Apr, [facility] [address] [place] [address] Apr, Mid-back pain, acute M54.9 ; Dyslipidemia E78.5 and Hypertension I10 [facility] [address] [place] [address] Apr, [address] [address] Apr, [facility] [address] [address] Feb, Familial hypercholesterolemia E78.0 ; Occlusion and stenosis of left carotid artery I65.22 and Vitamin D deficiency E55.[address] [address] Feb, [facility] [address] [address] Feb, Fever, unspecified fever cause R50.9 and Acute non-recurrent maxillary sinusitis J01.00 [facility] [address] [address] Jan, [address] [address] Jan, [address] [address] Jan, Nodule of neck R22.1 and Night sweats R61 [address] [address] Dec, [address] [address] Dec, [address] [address] Nov, [address] [address] Nov, [address] [address] October, Acute upper respiratory infection, unspecified J06.9 ; Other viral agents as the cause of diseases classified elsewhere B97.89 and Calculus of gallbladder without cholecystitis without obstruction K80.[address] [address] Sep, Insomnia, unspecified type G47.00 ; Hypertension I10 and Elevated LFTs R79.[address] [address] Sep, Bleeding after intercourse N93.0 and Dysuria R30.[address] [address] Aug, Dysuria R30.0 and Pyuria N39.[address] [address] Aug, Hypertension I10 ; Insomnia, unspecified type G47.00 and 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 [address] 12 Jul, 2015 Pain of upper extremity M79.603 ; Hypertension I10 and Pure hypercholesterolemia E78.[address] [address] 09 Jul, 2015 Physical exam, pre-employment Z02.1 ; Visit for TB skin test Z11.1 ; Facial rash R21 and 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 [address] 04 Jul, 2015 Other and unspecified hyperlipidemia E78.5 ; Vitamin D deficiency E55.9 and Borderline abnormal thyroid function test R94.[address] [address] Jun, 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 ; Dyslipidemia E78.5 ; Dyspnea on exertion R06.09 ; Family history of cardiovascular disease Z82.49 and Borderline abnormal thyroid function test R94.[address] [address] May, Other emphysema J43.8 ; Smoking F17.200 and Tobacco abuse counseling Z71.[address] [address] May, Cough R05 and Other emphysema J43.[address] [address] Apr, [address] [address] Apr, Skin lesion of back L98.9 and Skin lesion L98.[address] [address] Apr, Skin lesion of back L98.9 and Hot flashes N95.[address] [address] Mar, Bronchitis J40 [address] [address] Mar, Acute pharyngitis, unspecified J02.9 and Upper respiratory infection with cough and congestion J06.[address] [address] Mar, Bronchitis J40 ; Shortness of breath R06.02 ; Encounter for screening mammogram for breast cancer Z12.31 and Yeast infection B37.[address] [address] Jan, Other and unspecified hyperlipidemia 272.4 and Hypothyroidism 244.[address] [address] Dec, [address] [address] Nov, Diarrhea 787.91 and Nausea 787.[address] [address] October, Other and unspecified hyperlipidemia 272.[address] [address] October, Lumbago 724.2 [facility] [address] [id number], [place] [address] 14 Sep, 2014 [facility] [address] [id number] [address] 13 Sep, 2014 [facility] [address] [place] [id number] [place] [address] Aug, [facility] [address] [address] [place] [address] Aug, [facility] [place] [address] [place] [address] Jun, [facility] [address], [place] [address] Jun, [facility] [address] [place] [address] May, [facility] [address] [place] [address] May, [facility] [place] [address] [place] [address] May, [facility] [place] [address] [place] [address] Apr, [facility] [address] [place] [address] Apr, [facility] [place] [address] [place] [address] Mar, [facility] [address] [place] [address] Mar, [facility] [place] [address] [place] [address] Mar, [facility] [address], [place] [address] Mar, [facility] [address] [place] [address] Mar, [facility] [place] [address] [place] [address] Mar, [facility] [place] [address] [place] [address] Feb, [facility] [address] [id number], [place] [address] Feb, [facility] [place] [address] [place] [address] Jan, [facility] [place] [facility] [address] [facility] [id number] [place] [address] Jan, [facility] [place] [facility] [address] [facility] [id number] [place] [address] Jan, [facility] [place] [facility] [address] [place] [id number] [address] Jan, [facility] [place] [address] [place] [address] Jan, [facility] [place] [facility] [address] [facility] [id number] [place] [address] Jan, [facility] [place] [address] [place] [address] Dec, [facility] [address] [id number], [place] [address] Dec, [facility] [place] [facility] [address] [place] [address] [id number], [place] [address] Dec, [facility] [place] [facility] [address] [place] [address] [id number], [place] [address] Dec, [facility] [place] [address] [place] [address] Dec, [facility] [place] [address] [place] [address] Dec, [facility] [place] [facility] [address] [place] [id number], [place] [address] Dec, [facility] [place] [address] [place] [address] October, [facility] [place] [facility] [address] [facility] [id number], [place] [address] October, [facility] [place] [facility] [address] [place] [id number], [place] [address] October, [facility] [place] [address] [place] [address] Sep, [facility] [place] [facility] [address] [place] [address] [id number], [place] [address] 17 Sep, 2013 [facility] [address] [place] [address] Sep, [facility] [address], [place] [address] Sep, [facility] [address], [place] [address] Aug, [facility] [place] [address] [place] [address] Aug, [facility] [address], [place] [address] Jun, [facility] [address], [place] [address] Jun, [facility] [address] [place] [address] Jun, [facility] [address] [place] [address] May, [facility] [address], [place] [address] May, [facility] [address], [place] [address] May, [facility] [address] [place] [address] May, [facility] [address] [place] [address] Apr, [facility] [address] [place] [id number], [place] [address] Apr, [facility] [address], [place] [address] Feb, [facility] [place] [address] [place] [address] Feb, IMMUNIZATIONS No Known Immunizations SOCIAL HISTORY Never Assessed REASON FOR VISIT EMR-[facility] PLAN OF CARE VITAL SIGNS MEDICATIONS Unknown [...]
--- OUTSIDE RECORDS SUMMARY | 2019-04-01 10:39 | XMS REPORT ---
Author Author Migration, Doctor Organization [facility] Address Unknown Phone Unavailable Care Team Providers [facility] Name Role Phone Migration, Doctor Unavailable Unavailable PROBLEMS Type Condition ICD9-CM Code [id number] Code Onset Dates Condition Status SNOMED Code Problem Skin lesion of back L98.9 Active 32720754 Problem Hot flashes N95.1 Active 237543441 Problem Other emphysema J43.8 Active 40582768 Problem Smoking F17.200 Active 73157728 Problem Gastroparesis K31.84 Active 167158650 Problem Familial hypercholesterolemia E78.0 Active 826127602 Problem 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 98136786 Problem Dyslipidemia E78.5 Active 814517138 Problem Other and unspecified hyperlipidemia E78.5 Active 11707778 Problem Vitamin D deficiency E55.9 Active 72402900 Problem Hypertension I10 Active 37801531 Problem Facial rash R21 Active 440994330 Problem Elevated LFTs R79.89 Active 579221117 Problem Insomnia, unspecified type G47.00 Active 899928687 Problem Anxiety F41.9 Active 86349252 Problem Other insomnia G47.09 Active 377459447 Problem Primary insomnia F51.01 Active 4706297 Problem Chronic obstructive pulmonary disease, unspecified COPD type J44.9 Active 43790504 Problem Family history of cardiovascular disease Z82.49 Active 992051413 Problem Menopausal hot flushes N95.1 Active 523269102 Problem Borderline abnormal thyroid function test R94.6 Active 926676024 Problem Dyspnea on exertion R06.09 Active 19174975 Problem Atrial tachycardia I47.1 Active 069697405 Problem History of thyroidectomy E89.0 Active 453442131 Problem Thyroiditis E06.9 Active 83971858 Problem Essential hypertension I10 Active 81769563 ALLERGIES No Information ENCOUNTERS Encounter Location Date Diagnosis [facility] [address] [place] [address] Sep, [facility] [address] [place] [address] Sep, Infiltrate noted on imaging study R93.89 [facility] [address] [place] [address] Sep, Rib pain R07.81 [facility] [address] [place] [address] Aug, Rib pain R07.81 [facility] [address] [place] [address] Aug, [facility] [address] [place] [address] Aug, [facility] [address] [place] [address] Aug, [facility] [address] [place] [address] Aug, [facility] [address] [place] [address] Aug, Cough R05 [facility] [address] [place] [address] Aug, Right hand pain M79.641 and Atypical pigmented skin lesion L81.9 [facility] [address] [place] [address] Aug, [facility] [address] [place] [address] Aug, De Quervain's disease (radial styloid tenosynovitis) M65.4 and Atypical mole D22.9 [facility] [address] [place] [address] Jul, Cough R05 [facility] [address] [place] [address] Jun, Upper respiratory tract infection, unspecified type J06.9 [facility] [address] [place] [address] Jun, Neck pain on left side M54.2 [facility] [address] [facility] [id number] [place] [address] Jun, [facility] [address] [place] [address] Jun, Neck pain on left side M54.2 and Neck nodule R22.1 [facility] [address] [place] [address] Jun, Acute gastritis without hemorrhage, unspecified gastritis type K29.00 [facility] [address] [place] [address] May, Chronic nonintractable headache, unspecified headache type R51 [facility] [address] [place] [address] Apr, Subacute frontal sinusitis J01.10 and Chronic nonintractable headache, unspecified headache type R51 [facility] [address] [place] [address] Apr, [facility] [address] [place] [address] Mar, Encounter for immunization Z23 [address] [address] 30 Feb, 2018 Primary insomnia F51.01 [facility] [address] [place] [address] 28 Feb, 2018 Primary insomnia F51.01 [facility] [address] [place] [address] 07 Feb, 2018 Mucous cyst of nasal sinus J34.1 [facility] [address] [place] [address] Jan, [address] [address] Dec, [facility] [address] Dec, Primary insomnia F51.01 ; Anxiety F41.9 and Menopausal hot flushes N95.1 [facility] [place] [address] [place] [address] October, Dry mouth, unspecified R68.2 ; Pharyngitis, unspecified etiology J02.9 and Primary insomnia F51.01 [facility] [place] [address] [place] [address] October, [facility] [address] [address] Sep, [facility] [place] [address] [place] [address] Sep, Hemoptysis R04.2 [facility] [place] [address] [place] [address] Sep, Primary insomnia F51.01 [facility] [place] [address] [place] [address] Sep, Adverse effect of drug, initial encounter T88.7XXA [facility] [address] [address] Aug, Adverse effect of drug, initial encounter T88.7XXA [facility] [address] [address] Aug, Primary insomnia F51.[address] [facility] [address] [address] Jul, [facility] [address] [address] Jul, Primary insomnia F51.01 [facility] [address] [facility] [id number] [address] Jul, [facility] [address] [address] Jul, Atrial tachycardia I47.[address] [facility] [address] [address] Jul, [facility] [address] [address] Jun, Flu-like symptoms R68.89 and Chronic obstructive pulmonary disease, unspecified COPD type J44.9 [facility] [place] [address] [place] [address] Jun, [facility] [address] [address] Jun, [facility] [place] [address] [place] [address] Jun, [facility] [address] [address] Jun, Epigastric pain R10.13 ; Diarrhea, unspecified type R19.7 and Non-intractable vomiting without nausea, unspecified vomiting type R11.11 [facility] [address] [place] [id number] [address] 15 May, [address] [address] 13 May, 2017 Chronic nonintractable headache, unspecified headache type R51 [facility] [address] [address] 06 May, [address] [address] 04 May, 2017 Essential hypertension I10 ; Thyroiditis E06.9 and Nonintractable episodic headache, unspecified headache type R51 [facility] [address] [address] 18 Feb, 2017 Dyslipidemia E78.5 ; Vitamin D deficiency E55.9 and Atherosclerosis of left carotid artery I65.22 [facility] [place] [address] [place] [address] Jan, [facility] [address] [place] [id number] [address] Dec, [facility] [address] [address] Dec, Atrial tachycardia I47.1 ; History of thyroidectomy E89.0 ; Primary insomnia F51.01 and Tobacco use Z72.0 [facility] [address] [address] October, Galactorrhea O92.6 [facility] [place] [address] [place] [address] October, [facility] [address] [address] October, [facility] [address] [address] October, [facility] [address] [address] October, Cough R05 and Other chest pain R07.89 [facility] [place] [address] [place] [address] Sep, Dysuria R30.0 ; Acute cystitis without hematuria N30.00 and Chest tightness or pressure R07.89 [facility] [place] [address] [place] [address] Sep, [facility] [place] [address] [place] [address] Sep, Acute bilateral low back pain without sciatica M54.5 [facility] [place] [address] [place] [address] Aug, Dermatitis L30.9 ; Other insomnia G47.09 and Anxiety F41.9 [facility] [place] [address] [place] [address] Aug, Vin [address] [address] Aug, Hypertension I10 ; Dyslipidemia E78.5 and Vitamin D deficiency E55.9 [facility] [place] [address] [place] [address] Jun, Anxiety F41.9 and Hypertension I10 [facility] [address] [facility] [id number] [place] [address] Jun, [facility] [place] [address] [place] [address] Jun, Anxiety F41.9 and Hypertension I10 [facility] [place] [address] [place] [address] Jun, [facility] [place] [address] [place] [address] May, [facility] [place] [address] [place] [address] May, Acute upper back pain M54.9 and Hypertension I10 [facility] [place] [address] [place] [address] Apr, [facility] [place] [address] [place] [address] Apr, Mid-back pain, acute M54.9 ; Dyslipidemia E78.5 and Hypertension I10 [address] [address] Apr, [address] [address] Apr, [address] [address] Feb, Familial hypercholesterolemia E78.0 ; Occlusion and stenosis of left carotid artery I65.22 and Vitamin D deficiency E55.[address] [address] Feb, [address] [address] Feb, Fever, unspecified fever cause R50.9 and Acute non-recurrent maxillary sinusitis J01.[address] [address] Jan, [address] [address] Jan, [address] [address] Jan, Nodule of neck R22.1 and Night sweats R61 [address] [address] Dec, [address] [address] Dec, [address] [address] Nov, [address] [address] Nov, [address] [address] October, Acute upper respiratory infection, unspecified J06.9 ; Other viral agents as the cause of diseases classified elsewhere B97.89 and Calculus of gallbladder without cholecystitis without obstruction K80.[address] [address] Sep, Insomnia, unspecified type G47.00 ; Hypertension I10 and Elevated LFTs R79.[address] [address] Sep, Bleeding after intercourse N93.0 and Dysuria R30.[address] [address] Aug, Dysuria R30.0 and Pyuria N39.[address] [address] Aug, Hypertension I10 ; Insomnia, unspecified type G47.00 and 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 [address] 12 Jul, 2015 Pain of upper extremity M79.603 ; Hypertension I10 and Pure hypercholesterolemia E78.[address] [address] 09 Jul, 2015 Physical exam, pre-employment Z02.1 ; Visit for TB skin test Z11.1 ; Facial rash R21 and 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 [address] 04 Jul, 2015 Other and unspecified hyperlipidemia E78.5 ; Vitamin D deficiency E55.9 and Borderline abnormal thyroid function test R94.[address] [address] Jun, 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 ; Dyslipidemia E78.5 ; Dyspnea on exertion R06.09 ; Family history of cardiovascular disease Z82.49 and Borderline abnormal thyroid function test R94.[address] [address] May, Other emphysema J43.8 ; Smoking F17.200 and Tobacco abuse counseling Z71.[address] [address] May, Cough R05 and Other emphysema J43.[address] [address] Apr, [address] [address] 04 Apr, 2015 Skin lesion of back L98.9 and Skin lesion L98.[address] [address] Apr, Skin lesion of back L98.9 and Hot flashes N95.[address] [address] Mar, Bronchitis J40 [address] [address] Mar, Acute pharyngitis, unspecified J02.9 and Upper respiratory infection with cough and congestion J06.[address] [address] Mar, Bronchitis J40 ; Shortness of breath R06.02 ; Encounter for screening mammogram for breast cancer Z12.31 and Yeast infection B37.[address] [address] Jan, Other and unspecified hyperlipidemia 272.4 and Hypothyroidism 244.[address] [address] Dec, [address] [address] Nov, Diarrhea 787.91 and Nausea 787.[address] [address] October, Other and unspecified hyperlipidemia 272.[address] [address] October, Lumbago 724.[address]65100[place] [address] Sep, [address] [place] [address] Sep, [address] [place] [address] Aug, [address] [address] Aug, [facility] [address] [address] [place] [address] Jun, [facility] [address]65100[place] [address] Jun, [facility] [address]65100[place] [address] May, [facility] [address] [place] [address] May, [facility] [address] [address] [place] [address] May, [facility] [place] [address] [place] [address] Apr, [facility] [address] [place] [address] Apr, [facility] [place] [address] [place] [address] Mar, [facility] [address]00565100[place] [address] Mar, [facility] [place] [address] [place] [address] Mar, [facility] [address]65[address] [address] Mar, [facility] [id number] [place] [address] Mar, [facility] [address] [address] [place] [address] Mar, [facility] [place] [address] [place] [address] Feb, [facility] [address]00565100[place] [address] Feb, [facility] [place] [address] [place] [address] Jan, [facility] [id number] [place] [address] Jan, [facility] [address] [facility] [id number] [address] Jan, [facility] [address] [facility] [id number] [place] [address] Jan, [facility] [address] [place] [address] Jan, [facility] [address] [id number] [address] Jan, [facility] [place] [address] [place] [address] Dec, [facility] [address] [id number] [address] Dec, [facility] [address] [id number] [address] Dec, [facility] [address] [id number] [address] Dec, [facility] [address] [address] [place] [address] Dec, [facility] [place] [address] [place] [address] Dec, [facility] [address] [id number] [address] Dec, [facility] [place] [address] [place] [address] October, [facility] [address] [facility] [id number] [address] October, [facility] [address] [id number] [address] October, [facility] [place] [address] [place] [address] Sep, [facility] [address] [id number] [address] Sep, [facility] [place] [address] [place] [address] Sep, [facility] [address]00565100[place] [address] Sep, [facility] [address]00565100[place] [address] Aug, [facility] [address] [place] [address] Aug, [facility] [address]00565100[place] [address] Jun, [facility] [id number] [place] [address] Jun, [facility] [address] [place] [address] Jun, [facility] [address] [place] [address] May, [facility] [address] [place] [id number] [address] May, [facility] [address] [place] [id number] [address] May, [facility] [address] [place] [address] May, [address] [address] Apr, [address]100[place] [address] Apr, [facility] [address] [place] [id number] [address] Feb, [facility] [address] [place] [address] Feb, IMMUNIZATIONS No Known Immunizations SOCIAL HISTORY Never Assessed REASON FOR VISIT EMR-[facility] [place] PLAN OF CARE [...]
--- OUTSIDE RECORDS SUMMARY | 2019-04-01 10:39 | XMS REPORT ---
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 Name Role Phone Migration, Doctor Unavailable Unavailable PROBLEMS Type Condition ICD9-CM Code AXZ48-QZ Code Onset Dates Condition Status SNOMED Code Problem Skin lesion of back L98.9 Active 63090850 Problem Hot flashes N95.1 Active 367947600 Problem Other emphysema J43.8 Active 90464090 Problem Smoking F17.200 Active 50229975 Problem Gastroparesis K31.84 Active 157098775 Problem Familial hypercholesterolemia E78.0 Active 002229933 Problem 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 69222360 Problem Dyslipidemia E78.5 Active 504962222 Problem Other and unspecified hyperlipidemia E78.5 Active 11352635 Problem Vitamin D deficiency E55.9 Active 12145735 Problem Hypertension I10 Active 77382779 Problem Facial rash R21 Active 442054461 Problem Elevated LFTs R79.89 Active 834015460 Problem Insomnia, unspecified type G47.00 Active 730179727 Problem Anxiety F41.9 Active 63853365 Problem Other insomnia G47.09 Active 262519953 Problem Primary insomnia F51.01 Active 1484051 Problem Chronic obstructive pulmonary disease, unspecified COPD type J44.9 Active 77755563 Problem Family history of cardiovascular disease Z82.49 Active 283312879 Problem Menopausal hot flushes N95.1 Active 021813301 Problem Borderline abnormal thyroid function test R94.6 Active 539307649 Problem Dyspnea on exertion R06.09 Active 69972352 Problem Atrial tachycardia I47.1 Active 809001366 Problem History of thyroidectomy E89.0 Active 097036147 Problem Thyroiditis E06.9 Active 20619758 Problem Essential hypertension I10 Active 67196278 ALLERGIES No Information ENCOUNTERS Encounter Location Date Diagnosis [facility] [address] [place] [address] Sep, [facility] [address] [place] [address] Sep, Infiltrate noted on imaging study R93.89 [facility] [address] [place] [address] Sep, Rib pain R07.81 [facility] [address] [place] [address] Aug, Rib pain R07.81 [facility] [address] [place] [address] Aug, [facility] [address] [place] [address] Aug, [facility] [address] [place] [address] Aug, [facility] [address] [place] [address] Aug, [facility] [address] [place] [address] Aug, Cough R05 [facility] [address] [place] [address] Aug, Right hand pain M79.641 and Atypical pigmented skin lesion L81.9 [facility] [address] [place] [address] Aug, [facility] [address] [place] [address] Aug, De Quervain's disease (radial styloid tenosynovitis) M65.4 and Atypical mole D22.9 [facility] [address] [place] [address] Jul, Cough R05 [facility] [address] [place] [address] Jun, Upper respiratory tract infection, unspecified type J06.9 [facility] [address] [place] [address] Jun, Neck pain on left side M54.2 [facility] [address] [facility] [id number] [place] [address] Jun, [facility] [address] [place] [address] Jun, Neck pain on left side M54.2 and Neck nodule R22.1 [facility] [address] [place] [address] Jun, Acute gastritis without hemorrhage, unspecified gastritis type K29.00 [facility] [address] [place] [address] May, Chronic nonintractable headache, unspecified headache type R51 [facility] [address] [place] [address] Apr, Subacute frontal sinusitis J01.10 and Chronic nonintractable headache, unspecified headache type R51 [facility] [address] [place] [address] Apr, [facility] [address] [place] [address] Mar, Encounter for immunization Z23 [address] [address] 30 Feb, 2018 Primary insomnia F51.01 [facility] [address] [place] [address] 28 Feb, 2018 Primary insomnia F51.01 [facility] [address] [place] [address] 07 Feb, 2018 Mucous cyst of nasal sinus J34.1 [facility] [address] [place] [address] Jan, [address] [address] Dec, [facility] [address] Dec, Primary insomnia F51.01 ; Anxiety F41.9 and Menopausal hot flushes N95.1 [facility] [place] [address] [place] [address] October, Dry mouth, unspecified R68.2 ; Pharyngitis, unspecified etiology J02.9 and Primary insomnia F51.01 [facility] [place] [address] [place] [address] October, [facility] [address] [address] Sep, [facility] [place] [address] [place] [address] Sep, Hemoptysis R04.2 [facility] [place] [address] [place] [address] Sep, Primary insomnia F51.01 [facility] [place] [address] [place] [address] Sep, Adverse effect of drug, initial encounter T88.7[facility]A [facility] [address] [address] Aug, Adverse effect of drug, initial encounter T88.7XXA [facility] [address] [address] Aug, Primary insomnia F51.01 [facility] [address] [address] Jul, [facility] [address] [address] Jul, Primary insomnia F51.01 [facility] [address] [facility] [id number], [place] [address] Jul, [facility] [address] [address] Jul, Atrial tachycardia I47.1 [facility] [address] [address] Jul, [facility] [address] [address] Jun, Flu-like symptoms R68.89 and Chronic obstructive pulmonary disease, unspecified COPD type J44.9 [facility] [place] [address] [place] [address] Jun, [facility] [address] [address] Jun, [facility] [address] [place] [address] Jun, [facility] [address] [address] Jun, Epigastric pain R10.13 ; Diarrhea, unspecified type R19.7 and Non-intractable vomiting without nausea, unspecified vomiting type R11.11 [facility] [address] [place] [id number] [address] 15 May, [address] [address] 13 May, 2017 Chronic nonintractable headache, unspecified headache type R51 [facility] [address] [address] 06 May, [address] [address] [address] 04 May, 2017 Essential hypertension I10 ; Thyroiditis E06.9 and Nonintractable episodic headache, unspecified headache type R51 [facility] [address] [address] 18 Feb, 2017 Dyslipidemia E78.5 ; Vitamin D deficiency E55.9 and Atherosclerosis of left carotid artery I65.22 [facility] [place] [address] [place] [address] Jan, [facility] [address] [place] [id number] [address] Dec, [facility] [address] [address] Dec, Atrial tachycardia I47.1 ; History of thyroidectomy E89.0 ; Primary insomnia F51.01 and Tobacco use Z72.0 [facility] [address] [address] October, Galactorrhea O92.6 [facility] [place] [address] [place] [address] October, [facility] [address] [address] October, [facility] [address] [address] October, [facility] [address] [address] October, Cough R05 and Other chest pain R07.89 [address] [place] [address] Sep, Dysuria R30.0 ; Acute cystitis without hematuria N30.00 and Chest tightness or pressure R07.89 [facility] [address] [place] [address] Sep, [facility] [address] [place] [address] Sep, Acute bilateral low back pain without sciatica M54.5 [facility] [place] [address] [place] [address] Aug, Dermatitis L30.9 ; Other insomnia G47.09 and Anxiety F41.9 [facility] [place] [address] [place] [address] Aug, [facility] [address] [address] Aug, Hypertension I10 ; Dyslipidemia E78.5 and Vitamin D deficiency E55.9 [facility] [place] [address] [place] [address] Jun, Anxiety F41.[address] [facility] [address] [facility] [id number] [place] [address] Jun, [facility] [address] [place] [address] Jun, Anxiety F41.9 and Hypertension I10 [facility] [place] [address] [place] [address] Jun, [facility]an[facility]ILIP [place] [place] [address] May, [facility] [place] [address] [place] [address] May, Acute upper back pain M54.9 and Hypertension I10 [facility] [address] [place] [address] Apr, [facility] [place] [address] [place] [address] Apr, Mid-back pain, acute M54.9 ; Dyslipidemia E78.5 and Hypertension I10 [address] [address] Apr, [address] [address] Apr, [address] [address] Feb, Familial hypercholesterolemia E78.0 ; Occlusion and stenosis of left carotid artery I65.22 and Vitamin D deficiency E55.[address] [address] Feb, [address] [address] Feb, Fever, unspecified fever cause R50.9 and Acute non-recurrent maxillary sinusitis J01.[address] [address] Jan, [address] [address] Jan, [address] [address] Jan, Nodule of neck R22.1 and Night sweats R61 [address] [address] Dec, [address] [address] Dec, [address] [address] Nov, [address] [address] Nov, [address] [address] October, Acute upper respiratory infection, unspecified J06.9 ; Other viral agents as the cause of diseases classified elsewhere B97.89 and Calculus of gallbladder without cholecystitis without obstruction K80.[address] [address] Sep, Insomnia, unspecified type G47.00 ; Hypertension I10 and Elevated LFTs R79.[address] [address] Sep, Bleeding after intercourse N93.0 and Dysuria R30.[address] [address] Aug, Dysuria R30.0 and Pyuria N39.[address] [address] Aug, Hypertension I10 ; Insomnia, unspecified type G47.00 and 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 [address] 12 Jul, 2015 Pain of upper extremity M79.603 ; Hypertension I10 and Pure hypercholesterolemia E78.[address] [address] 09 Jul, 2015 Physical exam, pre-employment Z02.1 ; Visit for TB skin test Z11.1 ; Facial rash R21 and 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 [address] 04 Jul, 2015 Other and unspecified hyperlipidemia E78.5 ; Vitamin D deficiency E55.9 and Borderline abnormal thyroid function test R94.[address] [address] Jun, 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 ; Dyslipidemia E78.5 ; Dyspnea on exertion R06.09 ; Family history of cardiovascular disease Z82.49 and Borderline abnormal thyroid function test R94.[address] [address] May, Other emphysema J43.8 ; Smoking F17.200 and Tobacco abuse counseling Z71.[address] [address] May, Cough R05 and Other emphysema J43.[address] [address] Apr, [address] [address] 04 Apr, 2015 Skin lesion of back L98.9 and Skin lesion L98.[address] [address] Apr, Skin lesion of back L98.9 and Hot flashes N95.[address] [address] Mar, Bronchitis J40 [address] [address] Mar, Acute pharyngitis, unspecified J02.9 and Upper respiratory infection with cough and congestion J06.[address] [address] Mar, Bronchitis J40 ; Shortness of breath R06.02 ; Encounter for screening mammogram for breast cancer Z12.31 and Yeast infection B37.[address] [address] Jan, Other and unspecified hyperlipidemia 272.4 and Hypothyroidism 244.[address] [address] Dec, [address] [address] Nov, Diarrhea 787.91 and Nausea 787.[address] [address] October, Other and unspecified hyperlipidemia 272.[address] [address] October, Lumbago 724.[address], [place] [address] Sep, [address] [place] [address] Sep, [address] [place] [address] Aug, [address] [address] Aug, [facility] [address] [place] [address] Jun, [facility] [id number], [place] [address] Jun, [facility] [id number] [address] May, [facility] [address] [place] [address] May, [facility] [address] [address] [place] [address] May, [facility] [place] [address] [place] [address] Apr, [facility] [address] [place] [address] Apr, [facility] [place] [address] [place] [address] Mar, [facility] [id number], [place] [address] Mar, [facility] [place] [address] [place] [address] Mar, [facility] [id number], [place] [address] Mar, [facility] [address] [place] [address] Mar, [facility] [place] [address] [place] [address] Mar, [facility] [address] [place] [address] Feb, [facility] [address], [place] [address] Feb, [facility] [address] [place] [address] Jan, [facility] [address] [place] [address] Jan, [facility] [address] [facility] [id number] [address] Jan, [facility] [address] [facility] [id number], [place] [address] Jan, [facility] [address] [place] [address] Jan, [facility] [address] [id number], [place] [address] Jan, [facility] [address] [place] [address] Dec, [facility] [address] [id number] [address] Dec, [facility] [address] [id number], [place] [address] Dec, [facility] [address] [id number], [place] [address] Dec, [facility] [address] [place] [address] Dec, [facility] [place] [address] [place] [address] Dec, [facility] [address] [id number], [place] [address] Dec, [facility] [place] [address] [place] [address] October, [facility] [address] [facility] [id number], [place] [address] October, [facility] [address] [id number], [place] [address] October, [facility] [place] [address] [place] [address] Sep, [facility] [address] [id number] [address] Sep, [facility] [place] [address] [place] [address] Sep, [facility] [address], [place] [address] Sep, [facility] [id number], [place] [address] Aug, [facility] [address] [place] [address] Aug, [facility] [address]65[address], [place] [address] Jun, [facility] [id number] [place] [address] Jun, [facility] [address] [place] [address] Jun, [facility] [address] [place] [address] May, [facility] [address] [place] [id number], [place] [address] May, [facility] [address] [place] [id number], [place] [address] May, [facility] [address] [place] [address] May, [address] [address] Apr, [address], [place] [address] Apr, [facility] [address] [place] [id number], [place] [address] Feb, [facility] [address] [place] [address] Feb, IMMUNIZATIONS No Known Immunizations SOCIAL HISTORY Never Assessed REASON FOR VISIT EMR-[facility] PLAN OF CARE VITAL SIGNS MEDICATIONS Unknown [...]
--- OUTSIDE RECORDS SUMMARY | 2019-04-01 10:40 | XMS REPORT ---
Author Author Migration, Doctor Organization [facility] Address Unknown Phone Unavailable Care Team Providers Care Cognos Analyst Name Role Phone Migration, Doctor Unavailable Unavailable PROBLEMS Type Condition ICD9-CM Code [id number] Code Onset Dates Condition Status SNOMED Code Problem Skin lesion of back L98.9 Active 33639987 Problem Hot flashes N95.1 Active 648689972 Problem Other emphysema J43.8 Active 55082025 Problem Smoking F17.200 Active 69346065 Problem Gastroparesis K31.84 Active 421996232 Problem Familial hypercholesterolemia E78.0 Active 374099133 Problem 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 36577923 Problem Dyslipidemia E78.5 Active 285816651 Problem Other and unspecified hyperlipidemia E78.5 Active 03042056 Problem Vitamin D deficiency E55.9 Active 00015372 Problem Hypertension I10 Active 56975276 Problem Facial rash R21 Active 994130048 Problem Elevated LFTs R79.89 Active 280038322 Problem Insomnia, unspecified type G47.00 Active 369959869 Problem Anxiety F41.9 Active 31316709 Problem Other insomnia G47.09 Active 151845519 Problem Primary insomnia F51.01 Active 0625104 Problem Chronic obstructive pulmonary disease, unspecified COPD type J44.9 Active 07106603 Problem Family history of cardiovascular disease Z82.49 Active 538441373 Problem Menopausal hot flushes N95.1 Active 293229826 Problem Borderline abnormal thyroid function test R94.6 Active 121071053 Problem Dyspnea on exertion R06.09 Active 68617231 Problem Atrial tachycardia I47.1 Active 802126480 Problem History of thyroidectomy E89.0 Active 186087237 Problem Thyroiditis E06.9 Active 23020750 Problem Essential hypertension I10 Active 09303464 ALLERGIES No Information ENCOUNTERS Encounter Location Date Diagnosis [facility] [address] [place] [address] Aug, [facility] [address] [place] [address] Aug, [facility] [address] [place] [address] Aug, De Quervain's disease (radial styloid tenosynovitis) M65.4 and Atypical mole D22.9 [facility] [address] [place] [address] 20 Jul, 2018 Cough R05 [facility] [address] [place] [address] Jun, Upper respiratory tract infection, unspecified type J06.9 [facility] [address] [place] [address] Jun, Neck pain on left side M54.2 [facility] [address] [facility] [id number] [place] [address] 07 Jun, 2018 [facility] [address] [place] [address] Jun, Neck pain on left side M54.2 and Neck nodule R22.1 [facility] [address] [place] [address] Jun, Acute gastritis without hemorrhage, unspecified gastritis type K29.[address] [facility] [address] [place] [address] May, Chronic nonintractable headache, unspecified headache type R51 [facility] [address] [place] [address] 06 Apr, 2018 Subacute frontal sinusitis J01.10 and Chronic nonintractable headache, unspecified headache type R51 [facility] [address] [place] [address] Apr, [facility] [address] [place] [address] Mar, Encounter for immunization Z23 [facility] [address] [address] 30 Feb, 2018 Primary insomnia F51.[address] [facility] [address] [place] [address] 28 Feb, 2018 Primary insomnia F51.01 [facility] [address] [place] [address] Feb, Mucous cyst of nasal sinus J34.1 [facility] [address] [place] [address] Jan, [facility] [address] [place] [address] Dec, [facility] [address] [place] [address] Dec, Primary insomnia F51.01 ; Anxiety F41.9 and Menopausal hot flushes N95.1 [facility] [address] [place] [address] October, Dry mouth, unspecified R68.2 ; Pharyngitis, unspecified etiology J02.9 and Primary insomnia F51.01 [facility]in [facility] [address] [place] [address] October, [facility] [place] [address] [place] [address] Sep, [facility] [address] [place] [address] Sep, Hemoptysis R04.2 [facility] [address] [place] [address] Sep, Primary insomnia F51.01 Thao [facility] [address] [place] [address] Sep, Adverse effect of drug, initial encounter T88.7[facility]A [facility] [address] [place] [address] Aug, Adverse effect of drug, initial encounter T88.7XXA [facility] [address] [place] [address] Aug, Primary insomnia F51.01 [facility] [address] [address] [place] [address] Jul, [facility] [address] [place] [address] Jul, Primary insomnia F51.01 [facility] [address] [facility] [id number] [address] Jul, zVin [place] [address] [place] [address] Jul, Atrial tachycardia I47.1 [facility] [address] [place] [address] 02 Jul, 2017 [facility] [place] [address] [place] [address] Jun, Flu-like symptoms R68.89 and Chronic obstructive pulmonary disease, unspecified COPD type J44.9 Th[facility] [address] [place] [address] Jun, Vin [address] [address] Jun, Thao [address] [address] Jun, Vin [facility] [address] [place] [address] Jun, Epigastric pain R10.13 ; Diarrhea, unspecified type R19.7 and Non-intractable vomiting without nausea, unspecified vomiting type R11.11 [address] [place] [address] May, Thao [address] [address] May, Chronic nonintractable headache, unspecified headache type R51 Vin [address] [address] May, Vin [address] [address] 04 May, 2017 Essential hypertension I10 ; Thyroiditis E06.9 and Nonintractable episodic headache, unspecified headache type R51 [address] [address] 18 Feb, 2017 Dyslipidemia E78.5 ; Vitamin D deficiency E55.9 and Atherosclerosis of left carotid artery I65.[address] [address] Jan, [facility] [address] [place] [id number] [place] [address] Dec, [facility] [address] [address] Dec, Atrial tachycardia I47.1 ; History of thyroidectomy E89.0 ; Primary insomnia F51.01 and Tobacco use Z72.0 [facility] [address] [place] [address] October, Galactorrhea O92.[address] [address] October, [facility] [address] [address] October, [facility] [address] [address] October, [facility] [address] [address] October, Cough R05 and Other chest pain R07.[address] [address] Sep, Dysuria R30.0 ; Acute cystitis without hematuria N30.00 and Chest tightness or pressure R07.[address] [address] Sep, [facility] [address] [address] Sep, Acute bilateral low back pain without sciatica M54.5 [facility] [address] [address] Aug, Dermatitis L30.9 ; Other insomnia G47.09 and Anxiety F41.[address] [address] Aug, [address] [address] Aug, Hypertension I10 ; Dyslipidemia E78.5 and Vitamin D deficiency E55.[address] [address] Jun, Anxiety F41.9 and Hypertension I10 [facility] [address] [place] [address] Jun, Thao [facility] [address] [place] [address] Jun, Anxiety F41.9 and Hypertension I10 Thao [facility] [address] [place] [address] Jun, Thao [facility] [address] [place] [address] May, Thao [facility] [address] [place] [address] May, Acute upper back pain M54.9 and Hypertension I10 Thao [facility] [address] [place] [address] Apr, Thao [address] [address] Apr, Mid-back pain, acute M54.9 ; Dyslipidemia E78.5 and Hypertension I[address] [address] Apr, Thao [facility] [address] [place] [address] Apr, Thao [address] [address] Feb, Familial hypercholesterolemia E78.0 ; Occlusion and stenosis of left carotid artery I65.22 and Vitamin D deficiency E55.9 S[facility] [address] [place] [address] Feb, Vin [address] [address] Feb, Fever, unspecified fever cause R50.9 and Acute non-recurrent maxillary sinusitis J01.[address] [address] Jan, Thao [address] [address] Jan, Vin [address] [address] Jan, Nodule of neck R22.1 and Night sweats R61 [address] [address] Dec, [address] [address] Dec, [address] [address] Nov, [address] [address] Nov, [address] [address] October, Acute upper respiratory infection, unspecified J06.9 ; Other viral agents as the cause of diseases classified elsewhere B97.89 and Calculus of gallbladder without cholecystitis without obstruction K80.[address] [address] Sep, Insomnia, unspecified type G47.00 ; Hypertension I10 and Elevated LFTs R79.[address] [address] Sep, Bleeding after intercourse N93.0 and Dysuria R30.[address] [address] Aug, Dysuria R30.0 and Pyuria N39.[address] [address] Aug, Hypertension I10 ; Insomnia, unspecified type G47.00 and 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 [address] 12 Jul, 2015 Pain of upper extremity M79.603 ; Hypertension I10 and Pure hypercholesterolemia E78.[address] [address] 09 Jul, 2015 Physical exam, pre-employment Z02.1 ; Visit for TB skin test Z11.1 ; Facial rash R21 and 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 [address] 04 Jul, 2015 Other and unspecified hyperlipidemia E78.5 ; Vitamin D deficiency E55.9 and Borderline abnormal thyroid function test R94.[address] [address] Jun, 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 ; Dyslipidemia E78.5 ; Dyspnea on exertion R06.09 ; Family history of cardiovascular disease Z82.49 and Borderline abnormal thyroid function test R94.[address] [address] May, Other emphysema J43.8 ; Smoking F17.200 and Tobacco abuse counseling Z71.[address] [address] May, Cough R05 and Other emphysema J43.[address] [address] Apr, [address] [address] Apr, Skin lesion of back L98.9 and Skin lesion L98.[address] [address] Apr, Skin lesion of back L98.9 and Hot flashes N95.[address] [address] Mar, Bronchitis J40 [address] [address] Mar, Acute pharyngitis, unspecified J02.9 and Upper respiratory infection with cough and congestion J06.[address] [address] Mar, Bronchitis J40 ; Shortness of breath R06.02 ; Encounter for screening mammogram for breast cancer Z12.31 and Yeast infection B37.[address] [address] Jan, Other and unspecified hyperlipidemia 272.4 and Hypothyroidism 244.[address] [address] Dec, [facility] [address] [place] [address] Nov, Diarrhea 787.91 and Nausea 787.02 [facility] [address] [place] [address] October, Other and unspecified hyperlipidemia 272.4 [facility] [address] [place] [address] October, Lumbago 724.2 [facility] [id number] [place] [address] Sep, [facility] [id number] [place] [address] Sep, [facility] [id number] [place] [address] Aug, [facility] [address] [place] [address] Aug, [facility] [address] [place] [address] Jun, [facility] [id number] [place] [address] Jun, [facility] [id number] [place] [address] May, [facility] [id number] [place] [address] May, [facility] [address] [place] [address] May, [facility] [address] [place] [address] Apr, [facility] [id number] [place] [address] Apr, [facility] [address] [place] [address] Mar, [facility] [id number] [place] [address] Mar, [facility] [address] [place] [facility] [place] [address] Mar, [facility] [address] [id number] [address] Mar, [facility] [address] [id number] [address] Mar, [facility] [address] [place] [facility] [place] [address] Mar, [facility] [address] [place] [facility] [place] [address] Feb, [facility] [id number] [place] [address] Feb, [facility] [address] [place] [address] Jan, [facility] [address] [place] [address] Jan, [facility] [id number] [address] Jan, [facility] [id number] [place] [address] Jan, [facility] [address] [place] [address] Jan, [facility] [address] [id number] [address] Jan, [facility] [address] [place] [address] Dec, [facility] [address] [id number] [address] Dec, [facility] [address] [id number] [address] Dec, [facility] [id number] [address] Dec, [facility] [address] [place] [facility] [place] [address] Dec, [facility] [address] [facility] [place] [address] Dec, [facility] [address] [facility] [id number] [address] Dec, [facility] [address] [place] [facility] [place] [address] October, [facility] [address] [facility] [id number], [place] [address] October, [facility] [address] [facility] [id number], [place] [address] October, [facility] [address] [place] [address] Sep, [facility] [address] [id number] [address] Sep, [facility] [address] [place] [address] Sep, [facility] [address] [facility] [id number] [address] Sep, [facility] [address] [id number] [address] Aug, [facility] [address] [place] [address] Aug, [facility] [address] [id number] [address] Jun, [facility] [address] [facility] [id number] [address] Jun, [facility] [address] [place] [address] Jun, [facility] [address] [place] [address] May, [facility] [address] [id number] [address] May, [facility] [id number] [address] May, [facility] [address] [place] [address] May, [facility] [address] [place] [address] Apr, [facility] [address] [facility] [id number], [place] [address] Apr, [facility] [address] [facility] [id number], [place] [address] Feb, [facility] [address] [place] [address] Feb, IMMUNIZATIONS No Known Immunizations SOCIAL HISTORY Never Assessed REASON FOR VISIT [facility] PLAN OF CARE VITAL SIGNS MEDICATIONS Unknown [...]
--- OUTSIDE RECORDS SUMMARY | 2019-04-01 10:40 | XMS REPORT ---
Author Author Migration, Doctor Organization [facility] Address Unknown Phone Unavailable Care Team Providers Care Economic Development Manager Name Role Phone Migration, Doctor Unavailable Unavailable PROBLEMS Type Condition ICD9-CM Code FAL01-YG Code Onset Dates Condition Status SNOMED Code Problem Skin lesion of back L98.9 Active 71682904 Problem Hot flashes N95.1 Active 222342526 Problem Other emphysema J43.8 Active 17975284 Problem Smoking F17.200 Active 40418859 Problem Gastroparesis K31.84 Active 143541701 Problem Familial hypercholesterolemia E78.0 Active 315803979 Problem 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 18823900 Problem Dyslipidemia E78.5 Active 500477858 Problem Other and unspecified hyperlipidemia E78.5 Active 37826577 Problem Vitamin D deficiency E55.9 Active 37897727 Problem Hypertension I10 Active 71759140 Problem Facial rash R21 Active 393685006 Problem Elevated LFTs R79.89 Active 330227561 Problem Insomnia, unspecified type G47.00 Active 592701869 Problem Anxiety F41.9 Active 62902052 Problem Other insomnia G47.09 Active 113295053 Problem Primary insomnia F51.01 Active 0741129 Problem Chronic obstructive pulmonary disease, unspecified COPD type J44.9 Active 34646709 Problem Family history of cardiovascular disease Z82.49 Active 431088288 Problem Menopausal hot flushes N95.1 Active 138835973 Problem Borderline abnormal thyroid function test R94.6 Active 555283239 Problem Dyspnea on exertion R06.09 Active 24031084 Problem Atrial tachycardia I47.1 Active 636370410 Problem History of thyroidectomy E89.0 Active 141365617 Problem Thyroiditis E06.9 Active 49975579 Problem Essential hypertension I10 Active 81612309 ALLERGIES No Information ENCOUNTERS Encounter Location Date Diagnosis [facility] [address] [place] [address] Sep, Rib [facility] R07.81 [facility] [address] [place] [address] Aug, Rib pain R07.81 [facility] [address] [place] [place] [address] Aug, [facility] [address] [place] [address] Aug, [facility] [address] [place] [address] Aug, [facility] [address] [place] [address] Aug, [facility] [address] [place] [address] Aug, Cough R05 [facility] [address] [place] [address] Aug, Right hand pain M79.641 and Atypical pigmented skin lesion L81.9 [facility] [address] [place] [address] Aug, [facility] [address] [place] [address] Aug, De Quervain's disease (radial styloid tenosynovitis) M65.4 and Atypical mole D22.9 [facility] [address] [place] [address] Jul, Cough R05 [facility] [address] [place] [address] Jun, Upper respiratory tract infection, unspecified type J06.9 [facility] [address] [place] [address] Jun, Neck pain on left side M54.2 [facility] [address] [facility] [id number] [address] Jun, [facility] [address] [address] [place] [address] Jun, Neck pain on left side M54.2 and Neck nodule R22.1 [facility] [address] [place] [address] Jun, Acute gastritis without hemorrhage, unspecified gastritis type K29.00 [facility] [address] [place] [address] May, Chronic nonintractable headache, unspecified headache type R51 [facility] [address] [place] [address] 06 Apr, 2018 Subacute frontal sinusitis J01.10 and Chronic nonintractable headache, unspecified headache type R51 [facility] [address] [place] [address] 02 Apr, 2018 [facility] [address] [place] [address] Mar, Encounter for immunization Z23 [facility] [address] [place] [address] 30 Feb, 2018 Primary [facility] F51.01 [facility] [address] [place] [address] 28 Feb, 2018 Primary insomnia F51.01 [facility] [address] [place] [address] 07 Feb, 2018 Mucous cyst of nasal sinus J34.1 [facility] [address] [place] [address] Jan, [facility] [place] [address] [place] [address] Dec, [address] [address] Dec, Primary insomnia F51.01 ; Anxiety F41.9 and Menopausal hot flushes N95.1 [facility] [address] [place] [address] October, Dry mouth, unspecified R68.2 ; Pharyngitis, unspecified etiology J02.9 and Primary insomnia F51.01 [facility] [place] [facility] [address] [place] [address] October, [address] [address] Sep, [facility] [address] Sep, Hemoptysis R04.2 [facility] [address] [place] [address] Sep, Primary insomnia F51.01 [facility] [address] [place] [address] Sep, Adverse effect of drug, initial encounter [facility].7[facility] [place] [address] [place] [address] Aug, Adverse effect of drug, initial encounter [facility].7[facility] [place] [address] [place] [address] Aug, Primary insomnia F51.01 [facility] [place] [address] [place] [address] Jul, [facility] [place] [address] [place] [address] Jul, Primary insomnia F51.01 [facility] [address] [place] [id number] [address] Jul, [facility] [place] [address] [place] [address] Jul, Atrial tachycardia I47.1 [facility] [place] [address] [place] [address] Jul, [facility] [place] [address] [place] [address] Jun, Flu-like symptoms R68.89 and Chronic obstructive pulmonary disease, unspecified COPD type J44.9 [facility] [place] [address] [place] [address] Jun, [facility] [place] [address] [place] [address] Jun, [facility] [place] [address] [place] [address] Jun, [facility] [place] [address] [place] [address] Jun, Epigastric pain R10.13 ; Diarrhea, unspecified type R19.7 and Non-intractable vomiting without nausea, unspecified vomiting type R11.11 [address] [address] May, [facility] [address] [address] 13 May, 2017 Chronic nonintractable headache, unspecified headache type R51 [facility] [address] [address] 06 May, [address] [address] 04 May, 2017 Essential hypertension I10 ; Thyroiditis E06.9 and Nonintractable episodic headache, unspecified headache type R51 [facility] [address] [address] 18 Feb, 2017 Dyslipidemia E78.5 ; Vitamin D deficiency E55.9 and Atherosclerosis of left carotid artery I65.[address] [address] Jan, [facility] [address] [facility] [id number] [place] [address] Dec, Vin [address] [address] Dec, Atrial tachycardia I47.1 ; History of thyroidectomy E89.0 ; Primary insomnia F51.01 and Tobacco use Z72.0 [facility] [address] [address] October, Galactorrhea O92.6 [facility] [address] [address] October, [facility] [address] [address] October, [facility] [address] [address] October, [facility] [address] [address] October, Cough R05 and Other chest pain R07.89 [facility] [address] [address] Sep, Dysuria R30.0 ; Acute cystitis without hematuria N30.00 and Chest tightness or pressure R07.[address] [address] Sep, [facility] [place] [address] [place] [address] Sep, Acute bilateral low back pain without sciatica M54.5 [facility] [place] [address] [place] [address] Aug, Dermatitis L30.9 ; Other insomnia G47.09 and Anxiety F41.9 [facility] [place] [address] [place] [address] Aug, [facility] [place] [address] [place] [address] Aug, Hypertension I10 ; Dyslipidemia E78.5 and Vitamin D deficiency E55.9 [facility] [place] [address] [place] [address] Jun, Anxiety F41.9 and Hypertension I10 [facility] [address] [facility] [id number] [place] [address] Jun, [facility] [place] [address] [place] [address] Jun, Anxiety F41.9 and Hypertension I10 [facility] [place] [address] [place] [address] Jun, [facility] [place] [address] [place] [address] May, [facility] [place] [address] [place] [address] May, Acute upper back pain M54.9 and Hypertension I10 [facility] [place] [address] [place] [address] Apr, [facility] [place] [address] [place] [address] Apr, Mid-back pain, acute M54.9 ; Dyslipidemia E78.5 and Hypertension I10 [facility] [place] [address] [place] [address] Apr, [facility] [place] [address] [place] [address] Apr, [address] [address] 29 Feb, 2016 Familial hypercholesterolemia E78.0 ; Occlusion and stenosis of left carotid artery I65.22 and Vitamin D deficiency E55.[address] [address] Feb, [address] [address] Feb, Fever, unspecified fever cause R50.9 and Acute non-recurrent maxillary sinusitis J01.[address] [address] Jan, [address] [address] Jan, [address] [address] Jan, Nodule of neck R22.1 and Night sweats R[address] [address] Dec, [address] [address] Dec, [address] [address] Nov, [address] [address] Nov, [address] [address] October, Acute upper respiratory infection, unspecified J06.9 ; Other viral agents as the cause of diseases classified elsewhere B97.89 and Calculus of gallbladder without cholecystitis without obstruction K80.[address] [address] Sep, Insomnia, unspecified type G47.00 ; Hypertension I10 and Elevated LFTs R79.[address] [address] Sep, Bleeding after intercourse N93.0 and Dysuria R30.[address] [address] Aug, Dysuria R30.0 and Pyuria N39.[address] [address] Aug, Hypertension I10 ; Insomnia, unspecified type G47.00 and 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 [address] 12 Jul, 2015 Pain of upper extremity M79.603 ; Hypertension I10 and Pure hypercholesterolemia E78.[address] [address] 09 Jul, 2015 Physical exam, pre-employment Z02.1 ; Visit for TB skin test Z11.1 ; Facial rash R21 and 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 [address] 04 Jul, 2015 Other and unspecified hyperlipidemia E78.5 ; Vitamin D deficiency E55.9 and Borderline abnormal thyroid function test R94.[address] [address] Jun, 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 ; Dyslipidemia E78.5 ; Dyspnea on exertion R06.09 ; Family history of cardiovascular disease Z82.49 and Borderline abnormal thyroid function test R94.[address] [address] May, Other emphysema J43.8 ; Smoking F17.200 and Tobacco abuse counseling Z71.[address] [address] May, Cough R05 and Other emphysema J43.[address] [address] Apr, [address] [address] Apr, Skin lesion of back L98.9 and Skin lesion L98.[address] [address] 03 Nov, 2015 Skin lesion of back L98.9 and Hot flashes N95.[address] [address] Mar, Bronchitis J40 [address] [address] 09 Mar, 2015 Acute pharyngitis, unspecified J02.9 and Upper respiratory infection with cough and congestion J06.[address] [address] Mar, Bronchitis J40 ; Shortness of breath R06.02 ; Encounter for screening mammogram for breast cancer Z12.31 and Yeast infection B37.[address] [address] Jan, Other and unspecified hyperlipidemia 272.4 and Hypothyroidism 244.[address] [address] Dec, [address] [address] Nov, Diarrhea 787.91 and Nausea 787.[address] [address] October, Other and unspecified hyperlipidemia 272.[address] [address] October, Lumbago 724.[address] [place] [address] 14 Sep, 2014 [place] [id number] [place] [address] Sep, [place] [id number] [place] [address] Aug, [address] [address] Aug, [address] [address] Jun, [place] [id number] [place] [address] Jun, [facility] [address] [id number], [place] [address] May, [facility] [id number], [place] [address] May, [facility] [place] [address] [place] [address] May, [facility] [place] [address] [place] [address] Apr, [facility] [address] [id number], [place] [address] Apr, [facility] [place] [address] [place] [address] Mar, [facility] [address] [place] [address] Mar, [facility] [place] [address] [place] [address] Mar, [facility] [id number], [place] [address] Mar, [facility] [id number] [place] [address] Mar, [facility] [place] [address] [place] [address] Mar, [facility] [place] [address] [place] [address] Feb, [facility] [id number], [place] [address] Feb, [facility] [place] [address] [place] [address] Jan, [facility] [id number], [place] [address] Jan, [facility] [id number], [place] [address] Jan, [facility] [address], [place] [address] Jan, [facility] [place] [address] [facility] [address] Jan, [facility] [address] [facility] [id number], [place] [address] Jan, [facility] [place] [address] [place] [address] Dec, [facility] [address] [facility] [id number], [place] [address] Dec, [facility] [id number] [place] [address] Dec, [facility] [id number], [place] [address] Dec, [facility] [place] [address] [place] [address] Dec, [facility] [place] [address] [place] [address] Dec, [facility] [address] [id number], [place] [address] Dec, [facility] [place] [address] [place] [address] October, [facility] [id number], [place] [address] October, [facility] [address] [id number], [place] [address] October, [facility] [place] [address] [place] [address] Sep, [facility] [address] [facility] [id number], [place] [address] Sep, [facility] [place] [address] [place] [address] Sep, [facility] [id number], [place] [address] Sep, [facility] [id number], [place] [address] Aug, [facility] [place] [address] [place] [address] Aug, [facility] [address], [place] [address] Jun, [facility] [address], [place] [address] Jun, [facility] [place] [address] [place] [address] Jun, [facility] [address] [place] [address] May, [facility] [address], [place] [address] May, [place] [address], [place] [address] May, [facility] [address] [place] [address] May, [address] [address] Apr, [facility] [address], [place] [address] Apr, [place] [address], [place] [address] Feb, [address] [address] Feb, IMMUNIZATIONS No Known Immunizations SOCIAL HISTORY Never Assessed REASON FOR VISIT EMR-[facility] PLAN OF CARE VITAL SIGNS MEDICATIONS Medication Instructions Dosage Frequency Start Date End Date Duration Status Zithromax Z-Lamine 250 mg 2 tablet by Oral route 1 time per day for 1 days then take 1 tab daily on days 2-5 Apr, Active Zetia 10 mg take 1 tablet (10 mg) by oral route once daily Jun, Active Bisoprolol-Hydrochlorothiazide 5-6.25 mg take 1 tablet by oral route once daily Mar, Active Zithromax Tri-Lamine 500 mg take 1 tablet (500 mg) by oral route once daily for 3 days Feb, Active pantoprazole 40 mg take 1 tablet (40 mg) by oral route 2 times per day Mar, Active Aspirin 81 mg take 1 tablet (81 mg) by oral route once daily Mar, Active Albuterol Sulfate 2.5 mg /3 mL (0.083 %) 1 Each by Inhalation route every 4 hours for cough and wheeze PRN for wheezing or cough Apr, Active RESULTS No Results PROCEDURES No Known [...]
--- OUTSIDE RECORDS SUMMARY | 2019-04-01 10:41 | XMS REPORT ---
Author Author KEVIN BEJARANO [facility] Address [address] [place] [address] Care Team Providers Care Miniature Model Maker Name Role Phone KEVIN BEJARANO Unavailable PROBLEMS Type Condition ICD9-CM Code RLR51-EO Code Onset Dates Condition Status SNOMED Code Problem Hot flashes N95.1 Active 941172558 Problem Skin lesion of back L98.9 Active 43589446 Problem Familial hypercholesterolemia E78.0 Active 759305273 Problem Smoking F17.200 Active 85452734 Problem Gastroparesis K31.84 Active 611663950 Problem Other emphysema J43.8 Active 94924152 Problem Anxiety F41.9 Active 64564003 Problem Primary insomnia F51.01 Active 3749279 Problem Other insomnia G47.09 Active 377923556 Problem Menopausal hot flushes N95.1 Active 765806258 Problem Chronic obstructive pulmonary disease, unspecified COPD type J44.9 Active 04441227 Problem Dyspnea on exertion R06.09 Active 78349415 Problem Family history of cardiovascular disease Z82.49 Active 313568211 Problem Borderline abnormal thyroid function test R94.6 Active 107050495 Problem History of thyroidectomy E89.0 Active 047119295 Problem Atrial tachycardia I47.1 Active 102680226 Problem Essential hypertension I10 Active 43050818 Problem Thyroiditis E06.9 Active 51058585 Problem Vitamin D deficiency E55.9 Active 90338467 Problem Other and unspecified hyperlipidemia E78.5 Active 73467298 Problem Dyslipidemia E78.5 Active 618605560 Problem 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 33337677 Problem Insomnia, unspecified type G47.00 Active 196446817 Problem Elevated LFTs R79.89 Active 652689066 Problem Facial rash R21 Active 042997255 Problem Hypertension I10 Active 86682396 ALLERGIES No Information ENCOUNTERS Encounter Location Date Diagnosis [facility] [address] [place] [address] Apr, [facility] [address] [place] [address] Mar, Encounter for immunization Z23 AnaCSKORINA [facility] [address] [place] [address] 30 Feb, 2018 Primary insomnia F51.01 [facility] [address] [place] [address] 28 Feb, 2018 Primary insomnia F51.01 [facility] [address] [facility] [address] [place] [address] 07 Feb, 2018 Mucous cyst of nasal sinus J34.1 [facility] [address] [place] [address] Jan, zkiranCHCSKORINA [facility] [address] [place] [address] Dec, z[facility]anCHCSK[facility] [place] [address] [place] [address] Dec, Primary insomnia F51.01 ; Anxiety F41.9 and Menopausal hot flushes N95.1 kiranCHCSKORINA [facility] [address] [place] [address] October, Dry mouth, unspecified R68.2 ; Pharyngitis, unspecified etiology J02.9 and Primary insomnia F51.01 kiranCHCSKORINA [facility] [address] [place] [address] October, z[facility]anCHCSKORINA [facility] [address] [place] [address] Sep, [facility] [address] [address] Sep, Hemoptysis R04.2 [facility]an[facility]K [facility] [address] [place] [address] 16 Sep, 2017 Primary insomnia F51.[address]INA [address] [address] 09 Sep, 2017 Adverse effect of drug, initial encounter T88.7XXA AnaCSKORINA [facility] [address] [place] [address] Aug, Adverse effect of drug, initial encounter T88.7XXA filibertoCHCSEK [address] [address] Aug, Primary insomnia F51.[address] [address] Jul, [facility] [address] [address] Jul, Primary insomnia F51.01 [address] [address] Jul, LenyKORINA [address] [address] Jul, Atrial tachycardia I47.[address] [address] Jul, kiranPHILIP [address] [address] Jun, Flu-like symptoms R68.89 and Chronic obstructive pulmonary disease, unspecified COPD type J44.9 [facility] [address] [address] Jun, [facility] [address] [address] Jun, [facility] [address] [address] Jun, [facility] [address] [address] Jun, Epigastric pain R10.13 ; Diarrhea, unspecified type R19.7 and Non-intractable vomiting without nausea, unspecified vomiting type R11.11 [place] [id number] [address] May, JENNIFERCSKORINA [address] [address] May, Chronic nonintractable headache, unspecified headache type R51 Thao [address] [address] 06 May, 2017 [facility] [address] [address] May, Essential hypertension I10 ; Thyroiditis E06.9 and Nonintractable episodic headache, unspecified headache type R51 [facility] [address] [address] Feb, Dyslipidemia E78.5 ; Vitamin D deficiency E55.9 and Atherosclerosis of left carotid artery I65.22 [facility] [address] [place] [address] Jan, [facility] [address] [facility] [id number] [place] [address] Dec, [facility] [address] [place] [address] Dec, Atrial tachycardia I47.1 ; History of thyroidectomy E89.0 ; Primary insomnia F51.01 and Tobacco use Z72.[address] [address] October, Galactorrhea O92.[address] [address] October, [facility] [address] [address] October, [facility] [address] [address] October, [facility] [address] [address] October, Cough R05 and Other chest pain R07.[address] [address] Sep, Dysuria R30.0 ; Acute cystitis without hematuria N30.00 and Chest tightness or pressure R07.[address] [address] Sep, [facility] [address] [address] Sep, Acute bilateral low back pain without sciatica M54.5 [facility] [address] [address] Aug, Dermatitis L30.9 ; Other insomnia G47.09 and Anxiety F41.9 [facility] [place] [address] [place] [address] Aug, [facility] [place] [address] [place] [address] Aug, Hypertension I10 ; Dyslipidemia E78.5 and Vitamin D deficiency E55.9 [facility] [place] [address] [place] [address] Jun, Anxiety F41.9 and Hypertension I10 [facility] [address] [facility] [id number] [address] Jun, [facility] [place] [address] [place] [address] Jun, Anxiety F41.9 and Hypertension I10 [facility] [place] [address] [place] [address] Jun, [facility] [place] [address] [place] [address] May, [facility] [place] [address] [place] [address] May, Acute upper back pain M54.9 and Hypertension I10 [facility] [place] [address] [place] [address] Apr, [facility] [place] [address] [place] [address] Apr, Mid-back pain, acute M54.9 ; Dyslipidemia E78.5 and Hypertension I10 [facility] [place] [address] [place] [address] Apr, [facility] [place] [address] [place] [address] Apr, [facility] [place] [address] [place] [address] Feb, Familial hypercholesterolemia E78.0 ; Occlusion and stenosis of left carotid artery I65.22 and Vitamin D deficiency E55.9 [facility] [place] [address] [place] [address] Feb, [facility] [place] [address] [place] [address] Feb, Fever, unspecified fever cause R50.9 and Acute non-recurrent maxillary sinusitis J01.[address] [address] Jan, [address] [address] Jan, [address] [address] Jan, Nodule of neck R22.1 and Night sweats R61 [address] [address] Dec, [address] [address] Dec, [address] [address] Nov, [address] [address] Nov, [address] [address] October, Acute upper respiratory infection, unspecified J06.9 ; Other viral agents as the cause of diseases classified elsewhere B97.89 and Calculus of gallbladder without cholecystitis without obstruction K80.[address] [address] Sep, Insomnia, unspecified type G47.00 ; Hypertension I10 and Elevated LFTs R79.[address] [address] Sep, Bleeding after intercourse N93.0 and Dysuria R30.[address] [address] Aug, Dysuria R30.0 and Pyuria N39.[address] [address] Aug, Hypertension I10 ; Insomnia, unspecified type G47.00 and 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 [address] Jul, Pain of upper extremity M79.603 ; Hypertension I10 and Pure hypercholesterolemia E78.[address] [address] 09 Jul, 2015 Physical exam, pre-employment Z02.1 ; Visit for TB skin test Z11.1 ; Facial rash R21 and 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 [address] 04 Jul, 2015 Other and unspecified hyperlipidemia E78.5 ; Vitamin D deficiency E55.9 and Borderline abnormal thyroid function test R94.[address] [address] 12 Jun, 2015 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 ; Dyslipidemia E78.5 ; Dyspnea on exertion R06.09 ; Family history of cardiovascular disease Z82.49 and Borderline abnormal thyroid function test R94.[address] [address] May, Other emphysema J43.8 ; Smoking F17.200 and Tobacco abuse counseling Z71.[address] [address] May, Cough R05 and Other emphysema J43.[address] [address] Apr, [address] [address] Apr, Skin lesion of back L98.9 and Skin lesion L98.[address] [address] 03 Apr, 2015 Skin lesion of back L98.9 and Hot flashes N95.[address] [address] Mar, Bronchitis J40 [address] [address] 09 Mar, 2015 Acute pharyngitis, unspecified J02.9 and Upper respiratory infection with cough and congestion J06.[address] [address] Mar, Bronchitis J40 ; Shortness of breath R06.02 ; Encounter for screening mammogram for breast cancer Z12.31 and Yeast infection B37.[address] [address] Jan, Other and unspecified hyperlipidemia 272.4 and Hypothyroidism 244.[address] [address] Dec, [address] [address] Nov, Diarrhea 787.91 and Nausea 787.[address] [address] October, Other and unspecified hyperlipidemia 272.[address] [address] October, Lumbago 724.2 [place] [id number] [place] [address] Sep, [facility] [address] [place] [id number] [place] [address] Sep, [place] [id number] [place] [address] Aug, [address] [address] Aug, [address] [address] Jun, [facility] [address] [place] [id number] [place] [address] Jun, [facility] [address] [place] [address] May, [facility] [address] [place] [id number] [place] [address] May, [address] [address] May, [facility] [place] [address] [facility] [place] [address] Apr, [facility] [place] [facility] [id number] [address] Apr, [facility] [place] [address] [place] [address] Mar, [facility] [place] [facility] [id number] [address] Mar, [facility] [place] [address] [facility] [place] [address] Mar, [facility] [address] [id number] [place] [address] Mar, [facility] [place] [facility] [id number] [address] Mar, [facility] [place] [address] [place] [address] Mar, [facility] [place] [address] [place] [address] Feb, [facility] [place] [facility] [id number] [address] Feb, [facility] [place] [address] [place] [address] Jan, [facility] [place] [facility] [id number] [address] Jan, [facility] [place] [facility] [id number] [address] Jan, [facility] [place] [facility] [id number] [address] Jan, [facility] [place] [address] [place] [address] Jan, [facility] [place] [facility] [id number] [address] Jan, [facility] [place] [address] [place] [address] Dec, [facility] [place] [facility] [address] [facility] [id number] [place] [address] Dec, [facility] [place] [facility] [address] [facility] [id number] [place] [address] Dec, [facility] [place] [facility] [address] [facility] [id number] [place] [address] Dec, [facility] [place] [address] [facility] [place] [address] Dec, [facility] [place] [address] [facility] [place] [address] Dec, [facility] [place] [facility] [address] [facility] [id number] [place] [address] Dec, [facility] [place] [address] [place] [address] October, [facility] [place] [facility] [address] [id number] [place] [address] October, [facility] [place] [facility] [address] [facility] [id number] [place] [address] October, [facility] [place] [address] [facility] [place] [place] [address] Sep, [facility] [place] [facility] [address] [id number] [place] [address] Sep, [facility] [place] [address] [place] [address] Sep, [facility] [place] [facility] [address] [facility] [id number] [place] [address] Sep, [facility] [place] [facility] [address] [facility] [id number] [address] Aug, [facility] [place] [address] [place] [address] Aug, [facility] [place] [facility] [address] [facility] [id number] [place] [address] Jun, [facility] [place] [facility] [id number] [address] Jun, [facility] [place] [address] [place] [address] Jun, [facility] [place] [address] [place] [address] May, [facility] [id number] [address] May, [facility] [address] [address] May, [facility] [place] [address] [place] [address] May, [facility] [place] [address] [place] [address] Apr, [facility] [address] [id number] [address] Apr, [facility] [address] [address] Feb, LenyKORINA [place] [address] [place] [address] Feb, IMMUNIZATIONS No Known Immunizations SOCIAL HISTORY Never Assessed REASON FOR VISIT head pressure PLAN OF CARE VITAL SIGNS MEDICATIONS Unknown [...] Surgical History Hysterectomy Surgical History Ceserean x2 Hospitalization History Ceserean x2 Hospitalization History Hysterectomy Hospitalization History Thyroidectomy
--- OUTSIDE RECORDS SUMMARY | 2019-04-01 10:41 | XMS REPORT ---
Author Author KEVIN BEJARANO Organization [facility] [address] [place] [address] Care Team Providers Care Pricer Name Role Phone KEVIN BEJARANO Unavailable PROBLEMS Type Condition ICD9-CM Code CXV47-IK Code Onset Dates Condition Status SNOMED Code Problem Hot flashes N95.1 Active 785621352 Problem Skin lesion of back L98.9 Active 22964478 Problem Familial hypercholesterolemia E78.0 Active 119033006 Problem Smoking F17.200 Active 81037228 Problem Gastroparesis K31.84 Active 817246728 Problem Other emphysema J43.8 Active 05543245 Problem Anxiety F41.9 Active 84752084 Problem Primary insomnia F51.01 Active 7548144 Problem Other insomnia G47.09 Active 855213985 Problem Menopausal hot flushes N95.1 Active 305362644 Problem Chronic obstructive pulmonary disease, unspecified COPD type J44.9 Active 38844763 Problem Dyspnea on exertion R06.09 Active 45145552 Problem Family history of cardiovascular disease Z82.49 Active 202329067 Problem Borderline abnormal thyroid function test R94.6 Active 708997763 Problem History of thyroidectomy E89.0 Active 171007818 Problem Atrial tachycardia I47.1 Active 526078864 Problem Essential hypertension I10 Active 08273309 Problem Thyroiditis E06.9 Active 73209498 Problem Vitamin D deficiency E55.9 Active 02355492 Problem Other and unspecified hyperlipidemia E78.5 Active 87480824 Problem Dyslipidemia E78.5 Active 035057315 Problem 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 86650571 Problem Insomnia, unspecified type G47.00 Active 937153805 Problem Elevated LFTs R79.89 Active 584726528 Problem Facial rash R21 Active 749908532 Problem Hypertension I10 Active 18699046 ALLERGIES No Information ENCOUNTERS Encounter Location Date Diagnosis [facility] [address] [place] [address] Feb, Primary insomnia F51.01 [facility] [address] [place] [address] Feb, Primary insomnia F51.01 [facility] [address] [place] [address] [place] [address] 07 Feb, 2018 Mucous cyst of nasal sinus J34.1 [facility] [address] [facility] [address] [place] [address] Jan, [facility] [place] [address] [place] [address] Dec, [facility] [address] [place] [address] Dec, Primary insomnia F51.01 ; Anxiety F41.9 and Menopausal hot flushes N95.1 [facility] [place] [address] [place] [address] October, Dry mouth, unspecified R68.2 ; Pharyngitis, unspecified etiology J02.9 and Primary insomnia F51.01 [facility] [place] [address] [place] [address] October, [facility] [place] [address] [place] [address] Sep, [facility] [address] [address] Sep, Hemoptysis R04.2 [facility] [place] [address] [place] [address] Sep, Primary insomnia F51.01 [facility] [place] [address] [place] [address] Sep, Adverse effect of drug, initial encounter T88.7XXA [facility] [place] [address] [place] [address] Aug, Adverse effect of drug, initial encounter T88.7XXA [facility] [address] [place] [address] Aug, Primary insomnia F51.01 [facility] [place] [address] [place] [address] Jul, [facility] [place] [address] [place] [address] Jul, Primary insomnia F51.01 [facility] [address] [place] [id number] [address] Jul, Thao [place] [address] [place] [address] Jul, Atrial tachycardia I47.1 [facility] [place] [address] [place] [address] Jul, [facility] [place] [address] [place] [address] Jun, Flu-like symptoms R68.89 and Chronic obstructive pulmonary disease, unspecified COPD type J44.9 [facility] [place] [address] [place] [address] Jun, Vin [place] [address] [place] [address] Jun, kiranPHILIP [place] [address] [place] [address] Jun, Vin [place] [address] [place] [address] Jun, Epigastric pain R10.13 ; Diarrhea, unspecified type R19.7 and Non-intractable vomiting without nausea, unspecified vomiting type R11.11 [place] [id number] [address] 15 May, 2017 [facility] [place] [address] [place] [address] May, Chronic nonintractable headache, unspecified headache type R51 [facility] [place] [address] [place] [address] 06 May, [address] [address] [address] 04 May, 2017 Essential hypertension I10 ; Thyroiditis E06.9 and Nonintractable episodic headache, unspecified headache type R51 [facility] [place] [address] [place] [address] Feb, Dyslipidemia E78.5 ; Vitamin D deficiency E55.9 and Atherosclerosis of left carotid artery I65.22 [facility] [place] [address] [place] [address] Jan, [facility] [address] [facility] [id number] [address] Dec, [facility] [place] [address] [place] [address] Dec, Atrial tachycardia I47.1 ; History of thyroidectomy E89.0 ; Primary insomnia F51.01 and Tobacco use Z72.0 [facility] [place] [address] [place] [address] October, Galactorrhea O92.6 [facility] [address] [address] October, [facility] [address] [address] October, [facility] [address] [address] October, [facility] [address] [address] October, Cough R05 and Other chest pain R07.[address] [address] Sep, Dysuria R30.0 ; Acute cystitis without hematuria N30.00 and Chest tightness or pressure R07.[address] [address] Sep, [facility] [address] [address] Sep, Acute bilateral low back pain without sciatica M54.5 [facility] [address] [address] Aug, Dermatitis L30.9 ; Other insomnia G47.09 and Anxiety F41.[address] [address] Aug, [facility] [address] [address] Aug, Hypertension I10 ; Dyslipidemia E78.5 and Vitamin D deficiency E55.9 [facility] [place] [address] [place] [address] Jun, Anxiety F41.9 and Hypertension I10 [facility] [address] [facility] [id number] [place] [address] Jun, [facility] [place] [address] [place] [address] Jun, Anxiety F41.9 and Hypertension I10 [facility] [place] [address] [place] [address] Jun, [facility] [place] [address] [place] [address] May, [facility] [place] [address] [place] [address] May, Acute upper back pain M54.9 and Hypertension I10 [facility] [place] [address] [place] [address] Apr, [facility] [place] [address] [place] [address] Apr, Mid-back pain, acute M54.9 ; Dyslipidemia E78.5 and Hypertension I10 [facility] [place] [address] [place] [address] Apr, [facility] [place] [address] [place] [address] Apr, [facility] [place] [address] [place] [address] Feb, Familial hypercholesterolemia E78.0 ; Occlusion and stenosis of left carotid artery I65.22 and Vitamin D deficiency E55.9 [facility] [place] [address] [place] [address] Feb, [facility] [place] [address] [place] [address] Feb, Fever, unspecified fever cause R50.9 and Acute non-recurrent maxillary sinusitis J01.00 [facility] [place] [address] [place] [address] Jan, [facility] [place] [address] [place] [address] Jan, [facility] [address] [address] Jan, Nodule of neck R22.1 and Night sweats R61 [address] [address] Dec, [facility] [address] [address] Dec, [address] [address] Nov, [address] [address] Nov, [facility] [address] [address] October, Acute upper respiratory infection, unspecified J06.9 ; Other viral agents as the cause of diseases classified elsewhere B97.89 and Calculus of gallbladder without cholecystitis without obstruction K80.[address] [address] Sep, Insomnia, unspecified type G47.00 ; Hypertension I10 and Elevated LFTs R79.[address] [address] Sep, Bleeding after intercourse N93.0 and Dysuria R30.[address] [address] Aug, Dysuria R30.0 and Pyuria N39.[address] [address] Aug, Hypertension I10 ; Insomnia, unspecified type G47.00 and 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 [address] Jul, Pain of upper extremity M79.603 ; Hypertension I10 and Pure hypercholesterolemia E78.[address] [address] 09 Feb, 2016 Physical exam, pre-employment Z02.1 ; Visit for TB skin test Z11.1 ; Facial rash R21 and 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 [address] 04 Jul, 2015 Other and unspecified hyperlipidemia E78.5 ; Vitamin D deficiency E55.9 and Borderline abnormal thyroid function test R94.[address] [address] 12 Jun, 2015 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 ; Dyslipidemia E78.5 ; Dyspnea on exertion R06.09 ; Family history of cardiovascular disease Z82.49 and Borderline abnormal thyroid function test R94.[address] [address] 21 May, 2015 Other emphysema J43.8 ; Smoking F17.200 and Tobacco abuse counseling Z71.[address] [address] May, Cough R05 and Other emphysema J43.[address] [address] Apr, [address] [address] 04 Apr, 2015 Skin lesion of back L98.9 and Skin lesion L98.[address] [address] 03 Apr, 2015 Skin lesion of back L98.9 and Hot flashes N95.[address] [address] 12 Mar, 2015 Bronchitis J40 [address] [address] 09 Mar, 2015 Acute pharyngitis, unspecified J02.9 and Upper respiratory infection with cough and congestion J06.[address] [address] Mar, Bronchitis J40 ; Shortness of breath R06.02 ; Encounter for screening mammogram for breast cancer Z12.31 and Yeast infection B37.9 [facility] [address] [place] [address] Jan, Other and unspecified hyperlipidemia 272.4 and Hypothyroidism 244.9 [facility] [place] [address] [place] [address] Dec, [facility] [place] [address] [place] [address] Nov, Diarrhea 787.91 and Nausea 787.02 [facility] [place] [address] [place] [address] October, Other and unspecified hyperlipidemia 272.4 [facility] [place] [address] [place] [address] October, Lumbago 724.2 [facility] [address] [place], [place] [id number] [place] [address] Sep, [facility] [address] [place] [id number] [place] [address] Sep, [facility] [address] [place] [id number] [place] [address] Aug, [facility] [place] [address] [place] [address] Aug, [facility] [place] [address] [place] [address] Jun, [facility] [address], [place] [address] Jun, [facility] [address] [place] [id number] [place] [address] May, [facility] [address] [place] [id number] [place] [address] May, [facility] [place] [address] [place] [address] May, [facility] [place] [address] [place] [address] Apr, [facility] [address] [place] [id number] [place] [address] Apr, [facility] [place] [address] [facility] [place] [address] Mar, [facility] [place] [facility] [address] [place] [id number], [place] [address] Mar, [facility] [place] [address] [facility] [place] [address] Mar, [facility] [place] [facility] [address] [place] [id number], [place] [address] Mar, [facility] [place] [facility] [address] [id number], [place] [address] Mar, [facility] [place] [address] [place] [address] Mar, [facility] [place] [address] [place] [address] Feb, [facility] [place] [facility] [id number], [place] [address] Feb, [facility] [place] [address] [place] [address] Jan, [facility] [place] [facility] [address] [place] [id number] [place] [address] Jan, [facility] [place] [facility] [address], [place] [address] Jan, [facility] [place] [facility] [address], [place] [address] Jan, [facility] [place] [address] [place] [address] Jan, [facility] [place] [facility] [address] [place] [id number], [place] [address] Jan, [facility] [place] [address] [place] [address] Dec, [facility] [place] [facility] [address] [id number], [place] [address] Dec, [facility] [place] [facility] [address], [place] [address] Dec, [facility] [address] [facility] [id number] [place] [address] Dec, [facility] [place] [address] [facility] [address] Dec, [facility] [place] [address] [facility] [address] Dec, [facility] [address] [facility] [id number], [place] [address] Dec, [facility] [place] [address] [facility] [place] [address] October, [facility] [address] [facility] [id number] [place] [address] October, [facility] [address] [place] [id number] [place] [address] October, [facility] [place] [address] [facility] [place] [address] Sep, [facility] [address] [facility] [id number], [place] [address] Sep, [facility] [place] [address] [place] [address] Sep, [facility] [address] [facility] [id number], [place] [address] Sep, [facility] [address] [id number], [place] [address] Aug, [facility] [place] [address] [place] [address] Aug, [facility] [address] [facility] [id number], [place] [address] Jun, [facility] [place] [facility] [address] [facility] [id number], [place] [address] Jun, [facility] [place] [address] [facility] [place] [address] Jun, [facility] [place] [address] [place] [address] 17 May, 2013 [facility] [address] [facility] [id number], [place] [address] May, [facility] [id number], [place] [address] May, [facility] [address] [place] [address] May, [facility] [address] [place] [address] Apr, [facility] [address] [id number], [place] [address] Apr, [facility] [address] [id number], [place] [address] Feb, [facility] [address] [place] [address] Feb, IMMUNIZATIONS No Known Immunizations SOCIAL HISTORY Never Assessed REASON FOR VISIT PLAN OF CARE VITAL SIGNS MEDICATIONS Medication Instructions Dosage Frequency Start Date End Date Duration Status Ambien 10 mg Orally Once a day at bedtime PRN for sleep Take 1 tablet 28 Active RESULTS No Results PROCEDURES No Known [...]
--- OUTSIDE RECORDS SUMMARY | 2019-04-01 10:42 | XMS REPORT ---
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 Problem Other and unspecified hyperlipidemia E78.5 Active Problem Family history of cardiovascular disease Z82.49 Active Problem Borderline abnormal thyroid function test R94.6 Active Problem Dyslipidemia E78.5 Active Problem Dyspnea on exertion R06.09 Active Assessment Vitamin D deficiency E55.9 Active Assessment Other and unspecified hyperlipidemia E78.5 Active Assessment Borderline abnormal thyroid function test R94.6 Active Problem Essential hypertension, benign 401.1 Active Problem Other and unspecified hyperlipidemia 272.4 Active Problem Nonspecific low blood pressure reading 796.3 Active Problem Nonspecific abnormal results of liver function study 794.8 Active Problem Counseling on substance use and abuse V65.42 Active Problem Hot flashes N95.1 Active Medications No Known Medications Procedures Procedure Coding System Code Date ASSAY OF FREE THYROXINE CPT-4 18196 Jul 27, 2015 ASSAY THYROID STIM HORMONE CPT-4 54970 Jul 27, 2015 VENIPUNCT, ROUTINE* CPT-4 80215 Jul 27, 2015 COMPREHEN METABOLIC PANEL CPT-4 91295 Jul 27, 2015 ASSAY OF VITAMIN D CPT-4 32381 Jul 27, 2015 ASSAY OF CK (CPK) CPT-4 67034 Jul 27, 2015 LIPID PANEL CPT-4 53403 Jul 27, 2015 Results Name Result Date Reference Range Unit Abnormality Flag ROUTINE VENIPUNCTURE Summary Purpose [employer] Submission
--- OUTSIDE RECORDS SUMMARY | 2019-04-01 10:42 | XMS REPORT ---
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 Name Role Phone ASHELY OTT Unavailable PROBLEMS Type Condition ICD9-CM Code CDW14-HX Code Onset Dates Condition Status SNOMED Code Problem Hot flashes N95.1 Active 061572521 Problem Skin lesion of back L98.9 Active 64768178 Problem Familial hypercholesterolemia E78.0 Active 879603096 Problem Smoking F17.200 Active 00499220 Problem Gastroparesis K31.84 Active 402856774 Problem Other emphysema J43.8 Active 55644276 Problem Anxiety F41.9 Active 14251829 Problem Primary insomnia F51.01 Active 3295148 Problem Other insomnia G47.09 Active 271846223 Problem Menopausal hot flushes N95.1 Active 751427782 Problem Chronic obstructive pulmonary disease, unspecified COPD type J44.9 Active 52783933 Problem Dyspnea on exertion R06.09 Active 52401958 Problem Family history of cardiovascular disease Z82.49 Active 309724536 Problem Borderline abnormal thyroid function test R94.6 Active 706382705 Problem History of thyroidectomy E89.0 Active 102194161 Problem Atrial tachycardia I47.1 Active 335311096 Problem Essential hypertension I10 Active 44031731 Problem Thyroiditis E06.9 Active 83506640 Problem Vitamin D deficiency E55.9 Active 85250060 Problem Other and unspecified hyperlipidemia E78.5 Active 71175701 Problem Dyslipidemia E78.5 Active 360751566 Problem 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 23969038 Problem Insomnia, unspecified type G47.00 Active 312737069 Problem Elevated LFTs R79.89 Active 268940031 Problem Facial rash R21 Active 351314746 Problem Hypertension I10 Active 81255337 ALLERGIES Substance Reaction Event Type Date Status Promethazine VC/Codeine stomach upset Drug Allergy Feb, Active Fentanyl anaphylaxis Drug Allergy Feb, Active ENCOUNTERS Encounter Location Date Diagnosis [facility] [place] [address] [place] [address] 30 Feb, 2018 Primary insomnia F51.01 [facility] [address] [place] [address] [place] [address] 28 Feb, 2018 Primary insomnia F51.01 [facility] [address] [place] [address] [place] [address] 07 Feb, 2018 Mucous cyst of nasal sinus J34.1 [facility] [address] [place] [address] [place] [address] Jan, [facility] [place] [address] [place] [address] Dec, [facility] [place] [address] [place] [address] Dec, Primary insomnia F51.01 ; Anxiety F41.9 and Menopausal hot flushes N95.1 [facility] [address] [place] [address] October, Dry mouth, unspecified R68.2 ; Pharyngitis, unspecified etiology J02.9 and Primary insomnia F51.01 [facility] [place] [address] [place] [address] October, [facility] [place] [address] [place] [address] Sep, [facility] [address] [place] [address] Sep, Hemoptysis R04.2 [facility] [address] [place] [address] Sep, Primary insomnia F51.01 [facility] [place] [address] [place] [address] Sep, Adverse effect of drug, initial encounter T88.7XXA filiberto[facility] [place] [address] [place] [address] Aug, Adverse effect of drug, initial encounter T88.7XXA [facility] [place] [address] [place] [address] Aug, Primary insomnia F51.01 [facility] [address] [place] [address] Jul, [facility] [place] [address] [place] [address] Jul, Primary insomnia F51.01 [facility] [address] [address] Jul, [facility] [place] [address] [place] [address] Jul, Atrial tachycardia I47.1 [facility] [place] [address] [place] [address] Jul, [facility] [place] [address] [place] [address] Jun, Flu-like symptoms R68.89 and Chronic obstructive pulmonary disease, unspecified COPD type J44.9 [facility] [place] [address] Jun, [facility] [place] [address] [place] [address] Jun, [facility] [place] [address] [place] [address] Jun, [facility] [place] [address] [place] [address] Jun, Epigastric pain R10.13 ; Diarrhea, unspecified type R19.7 and Non-intractable vomiting without nausea, unspecified vomiting type R11.11 [address] [address] May, [facility] [place] [address] [place] [address] May, Chronic nonintractable headache, unspecified headache type R51 [facility] [place] [address] [place] [address] 06 May, 2017 [facility] [place] [address] [place] [address] 04 May, 2017 Essential hypertension I10 ; Thyroiditis E06.9 and Nonintractable episodic headache, unspecified headache type R51 [facility] [place] [address] [place] [address] Feb, Dyslipidemia E78.5 ; Vitamin D deficiency E55.9 and Atherosclerosis of left carotid artery I65.22 [facility] [address] [address] Jan, [facility] [address] [facility] [id number] [place] [address] Dec, [facility] [address] [address] Dec, Atrial tachycardia I47.1 ; History of thyroidectomy E89.0 ; Primary insomnia F51.01 and Tobacco use Z72.0 [facility] [address] [address] October, Galactorrhea O92.6 [facility] [address] [address] October, [facility] [address] [address] October, [facility] [address] [address] October, [facility] [address] [address] October, Cough R05 and Other chest pain R07.[address] [address] Sep, Dysuria R30.0 ; Acute cystitis without hematuria N30.00 and Chest tightness or pressure R07.[address] [address] Sep, [facility] [address] [address] Sep, Acute bilateral low back pain without sciatica M54.5 [facility] [address] [address] Aug, Dermatitis L30.9 ; Other insomnia G47.09 and Anxiety F41.[address] [address] Aug, [facility] [place] [address] [place] [address] Aug, Hypertension I10 ; Dyslipidemia E78.5 and Vitamin D deficiency E55.9 [facility] [place] [address] [place] [address] Jun, Anxiety F41.9 and Hypertension I10 [facility] [address] [facility] [id number] [place] [address] Jun, [facility] [place] [address] [place] [address] Jun, Anxiety F41.9 and Hypertension I10 [facility] [place] [address] [place] [address] Jun, [facility] [place] [address] [place] [address] May, [facility] [address] [place] [address] May, Acute upper back pain M54.9 and Hypertension I10 [facility] [place] [address] [place] [address] Apr, [facility] [place] [address] [place] [address] Apr, Mid-back pain, acute M54.9 ; Dyslipidemia E78.5 and Hypertension I10 [facility] [place] [address] [place] [address] Apr, [facility] [place] [address] [place] [address] Apr, [facility] [place] [address] [place] [address] Feb, Familial hypercholesterolemia E78.0 ; Occlusion and stenosis of left carotid artery I65.22 and Vitamin D deficiency E55.9 [facility] [place] [address] [place] [address] Feb, [facility] [place] [address] [place] [address] Feb, Fever, unspecified fever cause R50.9 and Acute non-recurrent maxillary sinusitis J01.00 [facility] [address] [place] [address] Jan, [facility] [address] [place] [address] Jan, [address] [address] Jan, Nodule of neck R22.1 and Night sweats R61 [address] [address] Dec, [facility] [address] [place] [address] Dec, [facility] [address] [address] Nov, [facility] [address] [address] Nov, [address] [address] October, Acute upper respiratory infection, unspecified J06.9 ; Other viral agents as the cause of diseases classified elsewhere B97.89 and Calculus of gallbladder without cholecystitis without obstruction K80.[address] [address] Sep, Insomnia, unspecified type G47.00 ; Hypertension I10 and Elevated LFTs R79.89 [facility] [address] [place] [address] Sep, Bleeding after intercourse N93.0 and Dysuria R30.[address] [address] Aug, Dysuria R30.0 and Pyuria N39.[address] [address] Aug, Hypertension I10 ; Insomnia, unspecified type G47.00 and 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 [facility] [address] [place] [address] Jul, Pain of upper extremity M79.603 ; Hypertension I10 and Pure hypercholesterolemia E78.[address] [address] 09 Jul, 2015 Physical exam, pre-employment Z02.1 ; Visit for TB skin test Z11.1 ; Facial rash R21 and 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 [address] 04 Jul, 2015 Other and unspecified hyperlipidemia E78.5 ; Vitamin D deficiency E55.9 and Borderline abnormal thyroid function test R94.[address] [address] 12 Jun, 2015 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 ; Dyslipidemia E78.5 ; Dyspnea on exertion R06.09 ; Family history of cardiovascular disease Z82.49 and Borderline abnormal thyroid function test R94.[address] [address] May, Other emphysema J43.8 ; Smoking F17.200 and Tobacco abuse counseling Z71.[address] [address] May, Cough R05 and Other emphysema J43.[address] [address] Apr, [address] [address] Apr, Skin lesion of back L98.9 and Skin lesion L98.[address] [address] Apr, Skin lesion of back L98.9 and Hot flashes N95.[address] [address] Mar, Bronchitis J40 [address] [address] Mar, Acute pharyngitis, unspecified J02.9 and Upper respiratory infection with cough and congestion J06.[address] [address] Mar, Bronchitis J40 ; Shortness of breath R06.02 ; Encounter for screening mammogram for breast cancer Z12.31 and Yeast infection B37.[address] [address] Jan, Other and unspecified hyperlipidemia 272.4 and Hypothyroidism 244.[address] [address] Dec, [address] [address] Nov, Diarrhea 787.91 and Nausea 787.[address] [address] October, Other and unspecified hyperlipidemia 272.[address] [address] October, Lumbago 724.[address] [address] Sep, [address] [address] Sep, [address] [address] Aug, [address] [address] Aug, [address] [address] Jun, [place] [id number] [place] [address] Jun, [place] [id number] [place] [address] May, [address] [address] May, [address] [address] May, [address] [address] Apr, [facility] [address] [id number] [address] Apr, [facility] [place] [address] [place] [address] Mar, [facility] [address], [place] [address] Mar, [facility] [place] [address] [facility] [address] Mar, [facility] [id number] [address] Mar, [facility] [address], [place] [address] Mar, [facility] [place] [address] [place] [address] Mar, [facility] [place] [address] [place] [address] Feb, [facility] [address], [place] [address] Feb, [facility] [place] [address] [place] [address] Jan, [facility] [address], [place] [address] Jan, [facility] [address], [place] [address] Jan, [facility] [address], [place] [address] Jan, [facility] [place] [address] [place] [address] Jan, [facility] [address], [place] [address] Jan, [facility] [place] [address] [place] [address] Dec, [facility] [address], [place] [address] Dec, [facility] [address] [facility] [id number] [address] Dec, [facility] [address] [facility] [id number] [address] Dec, [facility] [place] [address] [place] [address] Dec, [facility] [place] [address] [place] [address] Dec, [facility] [address] [facility] [id number] [address] Dec, [facility] [place] [address] [place] [address] October, [facility] [id number] [address] October, [facility] [id number] [address] October, [facility] [place] [address] [place] [address] Sep, [facility] [id number], [place] [address] Sep, [facility] [place] [address] [place] [address] Sep, [facility] [id number] [address] Sep, [facility] [address] [facility] [id number], [place] [address] Aug, [facility] [place] [address] [place] [address] Aug, [facility] [id number], [place] [address] Jun, [facility] [id number], [place] [address] Jun, [facility] [place] [address] [place] [address] Jun, [facility] [address] [place] [address] May, [facility] [id number] [address] May, [place] [id number], [place] [address] May, [facility] [address] [place] [address] May, [facility] [address] [place] [address] Apr, [id number], [place] [address] Apr, [id number], [place] [address] Feb, [facility] [address] [place] [address] Feb, IMMUNIZATIONS No Known Immunizations SOCIAL HISTORY Never Assessed REASON FOR VISIT growth in/on nose LF side, first noticed it about a month ago, said it is growin g and hard to breath our of that side, said ears also recently started to hurt J Sung PLAN OF CARE Activity Details Follow Up prn Reason: VITAL SIGNS Height 65 in 2018-02-27 Weight 148.0 lbs 2018-02-27 Temperature 98.6 degrees Fahrenheit 2018-02-27 Heart Rate 83 bpm 2018-02-27 Respiratory Rate 16 2018-02-27 BMI 24.63 kg/m2 2018-02-27 Blood pressure systolic 118 mmHg 2018-02-27 Blood pressure diastolic 60 mmHg 2018-02-27 MEDICATIONS Medication Instructions Dosage Frequency Start Date End Date Duration Status Bactroban Nasal 2 % Nasally Twice a day 1 application Feb, Feb, 5 day(s) Active Zetia 10 mg take 1 tablet (10 mg) by oral route once daily Jun, Active Ambien 10 mg Orally Once a day at bedtime PRN for sleep Take 1 tablet 28 Active Verapamil HCl ER 180 MG Orally Once a day 1 tablet 24h Active D3-50 44810 UNIT Active Spiriva Respimat 2.5 MCG/ACT INHALE 2 PUFFS DAILY 30 Active Venlafaxine HCl 37.5 MG Orally twice a day 1 tablet with food 12h Dec, 30 day(s) Active pantoprazole 40 mg take 1 tablet (40 mg) by oral route 2 times per day Mar, Active Aspirin 81 mg take 1 tablet (81 mg) by oral route once daily Mar, Active Losartan Potassium 50 MG Orally Once a day 1 tablet 24h Active Fish Oil 1000 MG Orally Once a day 1 capsule 24h Active Crestor 10 MG Orally Once a [...]
--- OUTSIDE RECORDS SUMMARY | 2019-04-01 10:42 | XMS REPORT ---
Author Author [facility] [address] [place] Address [address] [place] [address] Care Team Providers Care Cable Operator Name Role Phone ASHELY OTT Unavailable PROBLEMS Type Condition ICD9-CM Code UTV83-XE Code Onset Dates Condition Status SNOMED Code Problem Hot flashes N95.1 Active 902036197 Problem Skin lesion of back L98.9 Active 33964129 Problem Familial hypercholesterolemia E78.0 Active 400895468 Problem Smoking F17.200 Active 63758996 Problem Gastroparesis K31.84 Active 012155834 Problem Other emphysema J43.8 Active 58058842 Problem Anxiety F41.9 Active 51998405 Problem Primary insomnia F51.01 Active 5980241 Problem Other insomnia G47.09 Active 337343496 Problem Menopausal hot flushes N95.1 Active 035244663 Problem Chronic obstructive pulmonary disease, unspecified COPD type J44.9 Active 58371162 Problem Dyspnea on exertion R06.09 Active 41811742 Problem Family history of cardiovascular disease Z82.49 Active 402056228 Problem Borderline abnormal thyroid function test R94.6 Active 487074966 Problem History of thyroidectomy E89.0 Active 143420078 Problem Atrial tachycardia I47.1 Active 166923132 Problem Essential hypertension I10 Active 27500943 Problem Thyroiditis E06.9 Active 04507645 Problem Vitamin D deficiency E55.9 Active 59959931 Problem Other and unspecified hyperlipidemia E78.5 Active 48037582 Problem Dyslipidemia E78.5 Active 025699845 Problem 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 40571144 Problem Insomnia, unspecified type G47.00 Active 267825679 Problem Elevated LFTs R79.89 Active 099345062 Problem Facial rash R21 Active 300286439 Problem Hypertension I10 Active 16106399 ALLERGIES No Information ENCOUNTERS Encounter Location Date Diagnosis [facility] [place] [address] [place] [address] Feb, Primary insomnia F51.01 [facility] [address] [place] [address] [place] [address] 28 Feb, 2018 Primary insomnia F51.01 [facility] [address] [place] [address] [place] [address] 07 Feb, 2018 Mucous cyst of nasal sinus J34.1 [facility] [address] [place] [address] [place] [address] Jan, [facility] [place] [address] [place] [address] Dec, [facility] [place] [address] [place] [address] Dec, Primary insomnia F51.01 ; Anxiety F41.9 and Menopausal hot flushes N95.1 [facility] [place] [address] [place] [address] October, Dry mouth, unspecified R68.2 ; Pharyngitis, unspecified etiology J02.9 and Primary insomnia F51.01 [facility] [place] [address] [place] [address] October, [facility] [place] [address] [place] [address] Sep, [facility] [address] [address] Sep, Hemoptysis R04.2 [facility] [place] [address] [place] [address] Sep, Primary insomnia F51.01 [facility] [place] [address] [place] [address] Sep, Adverse effect of drug, initial encounter T88.7XXA [facility] [place] [address] [place] [address] Aug, Adverse effect of drug, initial encounter T88.7XXA [facility] [place] [address] [place] [address] Aug, Primary insomnia F51.01 [facility] [place] [address] [place] [address] Jul, [facility] [place] [address] [place] [address] Jul, Primary insomnia F51.01 [address] [address] Jul, [facility] [place] [address] [place] [address] Jul, Atrial tachycardia I47.1 [facility] [place] [address] [place] [address] Jul, [facility] [place] [address] [place] [address] Jun, Flu-like symptoms R68.89 and Chronic obstructive pulmonary disease, unspecified COPD type J44.9 [facility] [place] [address] [place] [address] Jun, Vin [place] [address] [place] [address] Jun, [facility] [place] [address] [place] [address] Jun, [facility] [place] [address] [place] [address] Jun, Epigastric pain R10.13 ; Diarrhea, unspecified type R19.7 and Non-intractable vomiting without nausea, unspecified vomiting type R11.11 [address] [address] 15 May, 2017 [facility] [place] [address] [place] [address] May, Chronic nonintractable headache, unspecified headache type R51 [facility] [place] [address] [place] [address] 06 May, 2017 [facility] [place] [address] [place] [address] 04 May, 2017 Essential hypertension I10 ; Thyroiditis E06.9 and Nonintractable episodic headache, unspecified headache type R51 [facility] [place] [address] [place] [address] 18 Feb, 2017 Dyslipidemia E78.5 ; Vitamin D deficiency E55.9 and Atherosclerosis of left carotid artery I65.22 [facility] [address] [address] Jan, [facility] [address] [facility] [id number] [place] [address] Dec, [facility] [address] [address] Dec, Atrial tachycardia I47.1 ; History of thyroidectomy E89.0 ; Primary insomnia F51.01 and Tobacco use Z72.0 [facility] [place] [address] [place] [address] October, Galactorrhea O92.6 [facility] [address] [address] October, [facility] [address] [address] October, [facility] [address] [address] October, [facility] [address] [address] October, Cough R05 and Other chest pain R07.[address] [address] Sep, Dysuria R30.0 ; Acute cystitis without hematuria N30.00 and Chest tightness or pressure R07.89 [facility] [address] [address] Sep, [facility] [address] [address] Sep, Acute bilateral low back pain without sciatica M54.5 [facility] [address] [address] Aug, Dermatitis L30.9 ; Other insomnia G47.09 and Anxiety F41.9 [facility] [address] [address] Aug, [facility] [address] [address] Aug, Hypertension I10 ; Dyslipidemia E78.5 and Vitamin D deficiency E55.9 [facility] [place] [address] [place] [address] Jun, Anxiety F41.9 and Hypertension I10 [facility] [address] [facility] [id number] [place] [address] Jun, [facility] [place] [address] [place] [address] Jun, Anxiety F41.9 and Hypertension I10 [facility] [place] [address] [place] [address] Jun, [facility] [place] [address] [place] [address] May, [facility] [place] [address] [place] [address] May, Acute upper back pain M54.9 and Hypertension I10 [facility] [place] [address] [place] [address] Apr, [facility] [place] [address] [place] [address] Apr, Mid-back pain, acute M54.9 ; Dyslipidemia E78.5 and Hypertension I10 [facility] [place] [address] [place] [address] Apr, [facility] [place] [address] [place] [address] Apr, [facility] [place] [address] [place] [address] Feb, Familial hypercholesterolemia E78.0 ; Occlusion and stenosis of left carotid artery I65.22 and Vitamin D deficiency E55.9 [facility] [place] [address] [place] [address] Feb, [facility] [place] [address] [place] [address] Feb, Fever, unspecified fever cause R50.9 and Acute non-recurrent maxillary sinusitis J01.00 [facility] [place] [address] [place] [address] Jan, [facility] [place] [address] [place] [address] Jan, [facility] [address] [address] Jan, Nodule of neck R22.1 and Night sweats R61 [address] [address] Dec, [address] [address] Dec, [address] [address] Nov, [address] [address] Nov, [address] [address] October, Acute upper respiratory infection, unspecified J06.9 ; Other viral agents as the cause of diseases classified elsewhere B97.89 and Calculus of gallbladder without cholecystitis without obstruction K80.[address] [address] Sep, Insomnia, unspecified type G47.00 ; Hypertension I10 and Elevated LFTs R79.[address] [address] Sep, Bleeding after intercourse N93.0 and Dysuria R30.[address] [address] Aug, Dysuria R30.0 and Pyuria N39.[address] [address] Aug, Hypertension I10 ; Insomnia, unspecified type G47.00 and 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 [address] Jul, Pain of upper extremity M79.603 ; Hypertension I10 and Pure hypercholesterolemia E78.[address] [address] 09 Feb, 2016 Physical exam, pre-employment Z02.1 ; Visit for TB skin test Z11.1 ; Facial rash R21 and 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 [address] 04 Jul, 2015 Other and unspecified hyperlipidemia E78.5 ; Vitamin D deficiency E55.9 and Borderline abnormal thyroid function test R94.[address] [address] 12 Jun, 2015 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 ; Dyslipidemia E78.5 ; Dyspnea on exertion R06.09 ; Family history of cardiovascular disease Z82.49 and Borderline abnormal thyroid function test R94.[address] [address] 21 May, 2015 Other emphysema J43.8 ; Smoking F17.200 and Tobacco abuse counseling Z71.[address] [address] May, Cough R05 and Other emphysema J43.[address] [address] Apr, [address] [address] Apr, Skin lesion of back L98.9 and Skin lesion L98.[address] [address] 03 Apr, 2015 Skin lesion of back L98.9 and Hot flashes N95.[address] [address] Mar, Bronchitis J40 [address] [address] 09 Mar, 2015 Acute pharyngitis, unspecified J02.9 and Upper respiratory infection with cough and congestion J06.[address] [address] Mar, Bronchitis J40 ; Shortness of breath R06.02 ; Encounter for screening mammogram for breast cancer Z12.31 and Yeast infection B37.9 [facility] [place] [address] [place] [address] Jan, Other and unspecified hyperlipidemia 272.4 and Hypothyroidism 244.9 [facility] [place] [address] [place] [address] Dec, [facility] [place] [address] [place] [address] Nov, Diarrhea 787.91 and Nausea 787.02 [facility] [place] [address] [place] [address] October, Other and unspecified hyperlipidemia 272.4 [facility] [place] [address] [place] [address] October, Lumbago 724.2 [facility] [address] [place] [id number] [place] [address] Sep, [facility] [address] [place] [id number] [place] [address] Sep, [facility] [address] [place] [id number] [place] [address] Aug, [facility] [place] [address] [place] [address] Aug, [facility] [place] [address] [place] [address] Jun, [facility] [address] [address] Jun, [facility] [address] [place] [address] [place] [address] May, [facility] [address] [place] [address] May, [facility] [place] [address] [place] [address] May, [facility] [place] [address] [place] [address] Apr, [facility] [address] [place] [address] [place] [address] Apr, [facility] [place] [address] [place] [address] Mar, [facility] [place] [facility] [address] [address] Mar, [facility] [place] [address] [place] [address] Mar, [facility] [place] [facility] [address] [id number] [address] Mar, [facility] [place] [facility] [address] [place] [id number] [place] [address] Mar, [facility] [place] [address] [place] [address] Mar, [facility] [place] [address] [place] [address] Feb, [facility] [place] [facility] [address] [place] [id number] [place] [address] Feb, [facility] [place] [address] [place] [address] Jan, [facility] [place] [facility] [address] [place] [id number] [place] [address] Jan, [facility] [place] [facility] [address] [address] Jan, [facility] [place] [facility] [address] [id number] [address] Jan, [facility] [place] [address] [place] [address] Jan, [facility] [place] [facility] [id number] [address] Jan, [facility] [place] [address] [place] [address] Dec, [facility] [place] [facility] [id number] [address] Dec, [facility] [place] [facility] [address] [address] Dec, [facility] [address] [facility] [id number] [place] [address] Dec, [facility] [place] [address] [place] [facility] [place] [address] Dec, [facility] [place] [address] [place] [facility] [place] [address] Dec, [facility] [address] [facility] [id number] [address] Dec, [facility] [place] [address] [place] [facility] [place] [address] October, [facility] [address] [facility] [id number] [address] October, [facility] [id number] [address] October, [facility] [place] [address] [place] [facility] [place] [address] Sep, [facility] [address] [id number] [address] Sep, [facility] [place] [address] [place] [address] Sep, [facility] [address] [id number] [address] Sep, [facility] [id number] [address] Aug, [facility] [place] [address] [place] [address] Aug, [facility] [address] [facility] [id number] [address] Jun, [facility] [id number] [address] Jun, [facility] [place] [address] [facility] [place] [address] Jun, [facility] [place] [address] [place] [address] May, [facility] [address] [facility] [id number] [address] May, [facility] [address] [id number] [address] May, [facility] [address] [place] [address] May, [facility] [address] [place] [address] Apr, [facility] [address] [facility] [id number] [address] Apr, [facility] [id number] [address] Feb, [facility] [address] [place] [address] Feb, IMMUNIZATIONS No Known Immunizations SOCIAL HISTORY Never Assessed REASON FOR VISIT Medication question PLAN OF CARE VITAL SIGNS MEDICATIONS Medication [...]
--- OUTSIDE RECORDS SUMMARY | 2019-04-01 10:42 | XMS REPORT ---
Author Author SARA MICHEL [facility] eClinicalWorks Address Unknown Phone Unavailable Care Team Providers Care Wheel Roller Name Role Phone SARA MICHEL CP Unavailable Allergies, Adverse Reactions, Alerts Substance Reaction Event Type Promethazine VC/Codeine stomach upset Drug Allergy Problems Problem Type Condition Code Onset Dates Condition Status Assessment Cough R05 Active Assessment Other emphysema J43.8 Active Problem Hot flashes N95.1 Active Problem Nonspecific abnormal results of liver function study 794.8 Active Problem Skin lesion of back L98.9 Active Problem Counseling on substance use and abuse V65.42 Active Problem Nonspecific low blood pressure reading 796.3 Active Problem Other and unspecified hyperlipidemia 272.4 Active Problem Essential hypertension, benign 401.1 Active Medications Medication Code System Code Instructions Start Date End Date Status Dosage D3-50 [facility] [address]-14 [address]703 UNIT Orally not defined Albuterol Sulfate [facility] [address]-22 2.5 mg /3 mL (0.083 %) Apr 25, 2014 1 Each by Inhalation route every 4 hours for cough and wheeze PRN for wheezing or cough Albuterol Sulfate [facility] [address]-08 108 (90 Base) MCG/ACT Inhalation every 4 hrs Apr 03, 2015 1 puff as needed Crestor [facility] [address]-11 10 MG Orally Once a day 1 tablet pantoprazole [facility] 0 40 mg Apr 08, 2014 take 1 tablet (40 mg) by oral route 2 times per day Aspirin [facility] [address]-22 81 mg Apr 08, 2014 take 1 tablet (81 mg) by oral route once daily Spiriva Respimat [facility] [address]-73 2.5 MCG/ACT Inhalation Once a day May 29, 2015 2 puffs Effexor XR [facility] [address]-89 37.5 MG Orally Once a day Apr 25, 2015 1 capsule with food Fish Oil [facility] [address]-94 1000 MG Orally Once a day 1 capsule Bisoprolol-Hydrochlorothiazide [facility] 12742603342 5-6.25 MG TAKE 1 TABLET DAILY. Zetia [facility] [address]-17 10 mg Jul 11, 2014 take 1 tablet (10 mg) by oral route once daily Procedures Procedure Coding System Code Date Office Visit, Est Pt., Level 4 CPT-4 17257 May 29, 2015 SPIROMETRY CPT-4 90730 May 29, 2015 Vital Signs Date/Time: May 29, 2015 Temperature 98.4 F Weight 140.4 lbs Height 65 in BMI 23.36 Index Blood Pressure Diastolic 52 mmHg Blood Pressure Systolic 90 mmHg Cardiac Monitoring Heart Rate 64 bpm Results No Known Results Summary Purpose eClinicalWorks Submission
--- OUTSIDE RECORDS SUMMARY | 2019-04-01 10:42 | XMS REPORT ---
Author Author KEVIN BEJARANO Organization eClinicalWorks Address Unknown Phone Unavailable Care Team Providers Care Clinical Documentation Consultant Name Role Phone KEVIN BEJARANO CP Unavailable Allergies No Known Allergies Problems Problem Type Condition Code Onset Dates Condition Status Problem Other and unspecified hyperlipidemia 272.4 Active Problem Essential hypertension, benign 401.1 Active Problem Nonspecific abnormal results of liver function study 794.8 Active Assessment Bronchitis J40 Active Problem Counseling on substance use and abuse V65.42 Active Problem Nonspecific low blood pressure reading 796.3 Active Medications Medication Code System Code Instructions Start Date End Date Status Dosage Acetaminophen-Codeine [facility] [address]-83 120-12 MG/5ML Orally 3 times a day for cough Apr 03, 2015 Apr 10, 2015 5-10 ml as needed Albuterol Sulfate [facility] [address]-93 108 (90 Base) MCG/ACT Inhalation every 4 hrs Apr 03, 2015 1 puff as needed Results No Known Results Summary Purpose eClinicalWorks Submission
--- OUTSIDE RECORDS SUMMARY | 2019-04-01 10:42 | XMS REPORT ---
Author Author KEVIN BEJARANO Organization e[employer] Address Unknown Phone Unavailable Care Team Providers Care Welding Pantograph Operator Name Role Phone KEVIN BEJARANO CP Unavailable Allergies, Adverse Reactions, Alerts Substance Reaction Event Type N.K.D.A. Info Not Available Non Drug Allergy Problems Problem Type Condition Code Onset Dates Condition Status Problem Other and unspecified hyperlipidemia 272.4 Active Problem Essential hypertension, benign 401.1 Active Problem Nonspecific abnormal results of liver function study 794.8 Active Assessment Acute pharyngitis, unspecified J02.9 Active Assessment Upper respiratory infection with cough and congestion J06.9 Active Problem Counseling on substance use and abuse V65.42 Active Problem Nonspecific low blood pressure reading 796.3 Active Medications Medication Code System Code Instructions Start Date End Date Status Dosage Bisoprolol-Hydrochlorothiazide [facility] 29891149325 5-6.25 MG TAKE 1 TABLET DAILY. Diflucan [facility] [address]-19 150 MG Orally at onset of symptoms. October repeat in 5 days Mar 23, 2015 Take 1 tablet D3-[address] [facility] [address]-89 99746 UNIT Orally not defined Zetia [facility] [address]-14 10 mg Jul 11, 2014 take 1 tablet (10 mg) by oral route once daily PredniSONE [facility] [address]-29 10 MG Orally Once a day Mar 23, 2015 4 tabs daily x 3 days, 3 tabs daily x 3 days, 2 tabs daily x 3 days, and 1 tab daily Albuterol Sulfate [facility] [address]-10 2.5 mg /3 mL (0.083 %) Apr 25, 2014 1 Each by Inhalation route every 4 hours for cough and wheeze PRN for wheezing or cough Nystatin [facility] [address]-01 175219 UNIT/ML Mouth/Throat 4 times a day January 09, 2015 [address] [facility] [address]-89 10 MG Orally Once a day 1 tablet Fish Oil [facility] [address]-59 1000 MG Orally Once a day [address] [facility] [address]-65 81 mg Apr 08, 2014 take 1 tablet (81 mg) by oral route once daily Augmentin [facility] [address]-75 875-125 MG Orally every 12 hrs Mar 23, 2015 Apr 02, [address] [facility] 0 40 mg Apr 08, 2014 take 1 tablet (40 mg) by oral route 2 times per day Procedures Procedure Coding System Code Date Office Visit, Est Pt., Level 3 CPT-4 03800 Mar 31, 2015 CHEST X-RAY CPT-4 89568 Mar 31, 2015 Vital Signs Date/Time: Mar 31, 2015 Temperature 97.7 F Weight 139 lbs Height 65 in BMI 23.13 Index Blood Pressure Diastolic 60 mmHg Blood Pressure Systolic 104 mmHg Cardiac Monitoring Heart Rate 64 bpm Results Name Result Date Reference Range Unit Abnormality Flag Xray : Chest (IN HOUSE) Summary Purpose eClinicalWorks Submission
--- OUTSIDE RECORDS SUMMARY | 2019-04-01 10:43 | XMS REPORT ---
Author IVAN Hickman [employer] Address Unknown Phone Unavailable Care Team Providers Care Window Glass Installer Name Role Phone IVAN SOLOMON CP Unavailable Allergies, Adverse Reactions, Alerts Substance Reaction Event Type N.K.D.A. Info Not Available Non Drug Allergy Problems Problem Type Condition Code Onset Dates Condition Status Assessment Hot flashes N95.1 Active Problem Nonspecific abnormal results of liver function study 794.8 Active Problem Other and unspecified hyperlipidemia 272.4 Active Problem Hot flashes N95.1 Active Problem Nonspecific low blood pressure reading 796.3 Active Assessment Skin lesion of back L98.9 Active Problem Essential hypertension, benign 401.1 Active Problem Counseling on substance use and abuse V65.42 Active Medications Medication Code System Code Instructions Start Date End Date Status Dosage Bisoprolol-Hydrochlorothiazide [facility] 13914629801 5-6.25 MG TAKE 1 TABLET DAILY. Zetia [facility] [address]-92 10 mg Jul 11, 2014 take 1 tablet (10 mg) by oral route once daily D3-50 [facility] [address]-40 38178 UNIT Orally not defined Effexor XR [facility] [address]-66 37.5 MG Orally Once a day Apr 25, 2015 1 capsule with food pantoprazole [facility] 0 40 mg Apr 08, 2014 take 1 tablet (40 mg) by oral route 2 times per day Fish Oil [facility] [address]-21 1000 MG Orally Once a day 1 capsule Crestor [facility] [address]-21 10 MG Orally Once a day 1 tablet Aspirin [facility] [address]-04 81 mg Apr 08, 2014 take 1 tablet (81 mg) by oral route once daily Albuterol Sulfate [facility] [address]-95 108 (90 Base) MCG/ACT Inhalation every 4 hrs Apr 03, 2015 1 puff as needed Albuterol Sulfate [facility] [address]-31 2.5 mg /3 mL (0.083 %) Apr 25, 2014 1 Each by Inhalation route every 4 hours for cough and wheeze PRN for wheezing or cough Procedures Procedure Coding System Code Date Office Visit, Est Pt., Level 3 CPT-4 88502 Apr 25, 2015 Vital Signs Date/Time: Apr 25, 2015 Temperature 97.9 F Weight 141.0 lbs Height 65 in BMI 23.46 Index Blood Pressure Diastolic 76 mmHg Blood Pressure Systolic 120 mmHg Cardiac Monitoring Heart Rate 60 bpm Results No Known Results Summary Purpose eClinicalWorks Submission
--- OUTSIDE RECORDS SUMMARY | 2019-04-01 10:43 | XMS REPORT ---
Author IVAN Hickman [employer] Address Unknown Phone Unavailable Care Team Providers Care Driver/Guide Name Role Phone IVAN SOLOMON CP Unavailable Allergies, Adverse Reactions, Alerts Substance Reaction Event Type N.K.D.A. Info Not Available Non Drug Allergy Problems Problem Type Condition Code Onset Dates Condition Status Assessment Encounter for screening mammogram for breast cancer Z12.31 Active Assessment Yeast infection B37.9 Active Problem Other and unspecified hyperlipidemia 272.4 Active Problem Essential hypertension, benign 401.1 Active Problem Nonspecific abnormal results of liver function study 794.8 Active Assessment Bronchitis J40 Active Assessment Shortness of breath R06.02 Active Problem Counseling on substance use and abuse V65.42 Active Problem Nonspecific low blood pressure reading 796.3 Active Medications Medication Code System Code Instructions Start Date End Date Status Dosage Albuterol Sulfate [facility] [address]-66 2.5 mg /3 mL (0.083 %) Apr 25, 2014 1 Each by Inhalation route every 4 hours for cough and wheeze PRN for wheezing or cough Nystatin [facility] [address]-12 971905 UNIT/ML Mouth/Throat 4 times a day January 09, 2015 5 cc's PredniSONE [facility] [address]-05 10 MG Orally Once a day Mar 23, 2015 4 tabs daily x 3 days, 3 tabs daily x 3 days, 2 tabs daily x 3 days, and 1 tab daily Erythrocin Stearate [facility] [address]-39 250 MG Orally not defined Aspirin [facility] [address]-48 81 mg Apr 08, 2014 take 1 tablet (81 mg) by oral route once daily Augmentin [facility] [address]-81 875-125 MG Orally every 12 hrs Mar 23, 2015 Apr 02, 2015 1 tablet Fish Oil [facility] [address]-28 1000 MG Orally Once a day 1 capsule D3-50 [facility] [address]-41 69940 UNIT Orally not defined Diflucan [facility] [address]-78 150 MG Orally at onset of symptoms. May repeat in 5 days Mar 23, 2015 Take 1 tablet Amitiza [facility] [address]-40 24 MCG Orally Twice a day 1 capsule with food Crestor [facility] [address]-26 10 MG Orally Once a day 1 tablet pantoprazole [facility] 0 40 mg Apr 08, 2014 take 1 tablet (40 mg) by oral route 2 times per day Bisoprolol-Hydrochlorothiazide [facility] 39775240378 5-6.25 MG TAKE 1 TABLET DAILY. Zetia [facility] [address]-22 10 mg Jul 11, 2014 take 1 tablet (10 mg) by oral route once daily Procedures Procedure Coding System Code Date Office Visit, Est Pt., Level 3 CPT-4 03329 Mar 23, 2015 Vital Signs Date/Time: Mar 23, 2015 Temperature 98.1 F Weight 139 lbs Height 65 in BMI 23.13 Index Blood Pressure Diastolic 80 mmHg Blood Pressure Systolic 120 mmHg Cardiac Monitoring Heart Rate 66 bpm Results No Known Results Summary Purpose eClinicalWorks Submission
--- OUTSIDE RECORDS SUMMARY | 2019-04-01 10:43 | XMS REPORT ---
Author Author [facility] MICHEL [facility] Address [address] [place] [address] Care Team Providers Care Gluing Machine Feeder Name Role Phone MICHEL, SARA Unavailable PROBLEMS Type Condition ICD9-CM Code [id number] Code Onset Dates Condition Status SNOMED Code Problem Insomnia, unspecified type G47.00 Active 107479555 Problem Familial hypercholesterolemia E78.0 Active 535960525 Problem Elevated LFTs R79.89 Active 535331135 Problem Primary insomnia F51.01 Active 0366676 Problem Smoking F17.200 Active 90084977 Problem History of thyroidectomy E89.0 Active 212947218 Problem Skin lesion of back L98.9 Active 10288463 Problem Hot flashes N95.1 Active 221000267 Problem Anxiety F41.9 Active 24458380 Problem Gastroparesis 536.3 Active 996022446 Problem Atrial tachycardia I47.1 Active 095472374 Problem Other insomnia G47.09 Active 559682651 Problem Family history of cardiovascular disease Z82.49 Active 751936628 Problem 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 57320331 Problem Other emphysema J43.8 Active 02772911 Problem Borderline abnormal thyroid function test R94.6 Active 246428582 Problem Vitamin D deficiency E55.9 Active 21959982 Problem Other and unspecified hyperlipidemia E78.5 Active 69001626 Problem Dyspnea on exertion R06.09 Active 42220441 Problem Facial rash R21 Active 331277387 Problem Dyslipidemia E78.5 Active 492791704 Problem Hypertension I10 Active 70441036 ALLERGIES No Information SOCIAL HISTORY Never Assessed PLAN OF CARE VITAL SIGNS MEDICATIONS Unknown Medications RESULTS No Results PROCEDURES No Known procedures IMMUNIZATIONS No Known Immunizations MEDICAL (GENERAL) HISTORY Type Description Date Medical [...]
--- OUTSIDE RECORDS SUMMARY | 2019-04-01 10:43 | XMS REPORT ---
Author Author Rodney Torres Organization [facility] [place] Address [address] [id number] Care Team Providers Care Stock Unloader Name Role Phone MelissaRodney Unavailable PROBLEMS Type Condition ICD9-CM Code [id number] Code Onset Dates Condition Status SNOMED Code Problem Diverticulosis, colon, w/o hemorrhage (.12/w/hem) 562.10 Active 077511000 Problem Screening, colon CA V76.51 Active 743316132 Problem Hemorrhoids, internal w/o complication 455.0 Active 84326617 Problem Diarrhea R19.7 Active 60911889 Problem RUQ abdominal pain R10.11 Active 004621374 Problem Constipation K59.00 Active 05853219 Problem Constipation, unspecified 564.00 Active 38308619 Problem Gastroparesis K31.84 Active 821892074 Problem GERD (gastroesophageal reflux disease) K21.9 Active 087910151 Problem Bloating 787.3 Active 04123530 Problem GERD 530.81 Active 604719318 Problem Acute gastritis without mention of hemorrhage 535.00 Active 05519439 Problem Liver function test, abnormal 790.4 Active 927925175 Problem POLANCO 571.8 Active 908871180 ALLERGIES Unknown Allergies SOCIAL HISTORY No smoking Hx information available PLAN OF CARE VITAL SIGNS MEDICATIONS Unknown Medications RESULTS No Results PROCEDURES No Known procedures IMMUNIZATIONS No Known Immunizations
--- OUTSIDE RECORDS SUMMARY | 2019-04-01 10:43 | XMS REPORT ---
Author Author SARA MICHEL [facility] Address [address] [place] [address] Care Team Providers Care Waredresser Name Role Phone MICHEL, SARA Unavailable PROBLEMS Type Condition ICD9-CM Code [id number] Code Onset Dates Condition Status SNOMED Code Problem Nonspecific low blood pressure reading 796.3 Active 960665803 Problem Nonspecific abnormal results of liver function study 794.8 Active 669735836 Problem Essential hypertension, benign 401.1 Active 5494780 Problem Other and unspecified hyperlipidemia 272.4 Active 37675862 Problem Counseling on substance use and abuse V65.42 Active 631677357 Problem Insomnia, unspecified type G47.00 Active 852247018 Problem Hot flashes N95.1 Active 209077781 Problem Elevated LFTs R79.89 Active 970363970 Problem Skin lesion of back L98.9 Active 87305696 Problem Familial hypercholesterolemia E78.0 Active 053462114 Problem Lumbago 724.2 Active 083408235 Problem Other nonspecific abnormal finding 796.9 Active 000064613 Problem Primary insomnia F51.01 Active 6190431 Problem History of thyroidectomy E89.0 Active 958433558 Problem Borderline abnormal thyroid function test R94.6 Active 784645563 Problem Smoking F17.200 Active 89971464 Problem Other emphysema J43.8 Active 15418128 Problem Anxiety F41.9 Active 55310541 Problem Gastroparesis 536.3 Active 387820635 Problem Atrial tachycardia I47.1 Active 663051561 Problem Other insomnia G47.09 Active 726550214 Problem Dyspnea on exertion R06.09 Active 19926309 Problem Dyslipidemia E78.5 Active 233354782 Problem Family history of cardiovascular disease Z82.49 Active 840546554 Problem 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
--- OUTSIDE RECORDS SUMMARY | 2019-04-01 10:43 | XMS REPORT ---
Author Author IVAN SOLOMON Organization [employer] Address Unknown Phone Unavailable Care Team Providers Care Deputy Coroner Name Role Phone IVAN SOLOMON CP Unavailable Allergies No Known Allergies Problems Problem Type Condition Code Onset Dates Condition Status Problem Hot flashes N95.1 Active Problem Nonspecific abnormal results of liver function study 794.8 Active Problem Skin lesion of back L98.9 Active Problem Counseling on substance use and abuse V65.42 Active Problem Nonspecific low blood pressure reading 796.3 Active Problem Other and unspecified hyperlipidemia 272.4 Active Problem Essential hypertension, benign 401.1 Active Medications No Known Medications Results No Known Results Summary Purpose eClinicalWorks Submission
--- OUTSIDE RECORDS SUMMARY | 2019-04-01 10:43 | XMS REPORT ---
Author Author SARA MICHEL [facility] eClinical[employer] Address Unknown Phone Unavailable Care Team Providers Care Radio Host Name Role Phone SARA MICHEL CP Unavailable Allergies, Adverse Reactions, Alerts Substance Reaction Event Type Promethazine VC/Codeine stomach upset Drug Allergy Problems Problem Type Condition Code Onset Dates Condition Status Assessment Other emphysema J43.8 Active Problem Counseling on substance use and abuse V65.42 Active Problem Nonspecific low blood pressure reading 796.3 Active Assessment Tobacco abuse counseling Z71.6 Active Assessment Smoking F17.200 Active Problem Smoking F17.200 Active Problem Skin lesion of back L98.9 Active Problem Other emphysema J43.8 Active Problem Other and unspecified hyperlipidemia 272.4 Active Problem Essential hypertension, benign 401.1 Active Problem Hot flashes N95.1 Active Problem Nonspecific abnormal results of liver function study 794.8 Active Medications Medication Code System Code Instructions Start Date End Date Status Dosage Albuterol Sulfate [facility] [address]-70 108 (90 Base) MCG/ACT Inhalation every 4 hrs Apr 03, 2015 1 puff as needed pantoprazole [facility] 0 40 mg Apr 08, 2014 take 1 tablet (40 mg) by oral route 2 times per day D3-50 [facility] [address]-67 69908 UNIT Orally not defined Zetia [facility] [address]-91 10 mg Jul 11, 2014 take 1 tablet (10 mg) by oral route once daily Bisoprolol-Hydrochlorothiazide [facility] 98603425422 5-6.25 MG TAKE 1 TABLET DAILY. Albuterol Sulfate [facility] [address]-59 2.5 mg /3 mL (0.083 %) Apr 25, 2014 1 Each by Inhalation route every 4 hours for cough and wheeze PRN for wheezing or cough Crestor [facility] [address]-32 10 MG Orally Once a day 1 tablet Spiriva Respimat [facility] [address]-52 2.5 MCG/ACT Inhalation Once a day 2 puffs Fish Oil [facility] [address]-50 1000 MG Orally Once a day 1 capsule Effexor XR [facility] [address]-91 37.5 MG Orally Once a day Apr 25, 2015 1 capsule with food Aspirin [facility] [address]-85 81 mg Apr 08, 2014 take 1 tablet (81 mg) by oral route once daily Procedures Procedure Coding System Code Date Office Visit, Est Pt., Level 3 CPT-4 44439 Jun 12, 2015 Vital Signs Date/Time: Jun 12, 2015 Temperature 98.1 F Weight 140.5 lbs Height 65 in BMI 23.38 Index Blood Pressure Diastolic 62 mmHg Blood Pressure Systolic 98 mmHg Cardiac Monitoring Heart Rate 66 bpm Results Name Result Date Reference Range Unit Abnormality Flag PULMONARY FUNCTION TEST (IN-HOUSE) Summary Purpose eClinicalWorks Submission
--- OUTSIDE RECORDS SUMMARY | 2019-04-01 10:43 | XMS REPORT ---
Author IVAN Hickman eClinicalWorks Address Unknown Phone Unavailable Care Team Providers Care Assurance Services Manager Health Care Name Role Phone IVAN SOLOMON CP Unavailable Allergies, Adverse Reactions, Alerts Substance Reaction Event Type N.K.D.A. Info Not Available Non Drug Allergy Problems Problem Type Condition Code Onset Dates Condition Status Assessment Skin lesion of back L98.9 Active Assessment Skin lesion L98.9 Active Problem Hot flashes N95.1 Active Problem [...] Start Date End Date Status Dosage D3-50 [facility] [address]-16 63906 UNIT Orally not defined Zetia [facility] [address]-48 10 mg Jul 11, 2014 take 1 tablet (10 mg) by oral route once daily Albuterol Sulfate [facility] [address]-35 108 (90 Base) MCG/ACT Inhalation every 4 hrs Apr 03, 2015 1 puff as needed Effexor XR [facility] [address]-11 37.5 MG Orally Once a day Apr 25, 2015 1 capsule with food Aspirin [facility] [address]-08 81 mg Apr 08, 2014 take 1 tablet (81 mg) by oral route once daily pantoprazole [facility] 0 40 mg Apr 08, 2014 take 1 tablet (40 mg) by oral route 2 times per day Bisoprolol-Hydrochlorothiazide [facility] 52867924034 5-6.25 MG TAKE 1 TABLET DAILY. Albuterol Sulfate [facility] [address]-46 2.5 mg /3 mL (0.083 %) Apr 25, 2014 1 Each by Inhalation route every 4 hours for cough and wheeze PRN for wheezing or cough Fish Oil [facility] [address]-09 1000 MG Orally Once a day 1 capsule Crestor NDC [address]-31 10 MG Orally Once a day 1 tablet Procedures Procedure Coding System Code Date SHAVE TRUNK 0.6-1 CM CPT-4 42499 Apr 26, 2015 Office Visit, Est Pt., Level 3 CPT-4 63762 Apr 26, 2015 SHAVE TRUNK <0.5 CM CPT-4 93629 Apr 26, 2015 Vital Signs Date/Time: Apr 26, 2015 Temperature 98.3 F Weight 141.0 lbs Height 65 in BMI 23.46 Index Blood Pressure Diastolic 80 mmHg Blood Pressure Systolic 114 mmHg Cardiac Monitoring Heart Rate 60 bpm Results No Known Results Summary Purpose eClinicalWorks Submission
--- OUTSIDE RECORDS SUMMARY | 2019-04-01 10:43 | XMS REPORT ---
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 19660057 Problem Dyslipidemia E78.5 Active 259346941 Problem Elevated LFTs R79.89 Active 938157181 Problem Nonspecific low blood pressure reading 796.3 Active 040048507 Problem Insomnia, unspecified type G47.00 Active 586213387 Problem Other and unspecified hyperlipidemia E78.5 Active 74717203 Problem Vitamin D deficiency E55.9 Active 62733318 Problem Hypertension I10 Active 88786027 Problem Facial rash R21 Active 666863280 Problem Other and unspecified hyperlipidemia 272.4 Active 43071631 Problem Nonspecific abnormal results of liver function study 794.8 Active 624189905 Problem Counseling on substance use and abuse V65.42 Active 464583206 Problem Essential hypertension, benign 401.1 Active 0711746 Problem Smoking F17.200 Active 02902987 Problem Other emphysema J43.8 Active 72031662 Problem Hot flashes N95.1 Active 386287561 Problem Borderline abnormal thyroid function test R94.6 Active 289764252 Problem Skin lesion of back L98.9 Active 38741481 Problem Family history of cardiovascular disease Z82.49 Active 599418323 ALLERGIES No Known Allergies SOCIAL HISTORY No smoking Hx information available PLAN OF CARE VITAL SIGNS MEDICATIONS No Known Medications RESULTS No Results PROCEDURES No Known procedures IMMUNIZATIONS No Known Immunizations
--- OUTSIDE RECORDS SUMMARY | 2019-04-01 10:43 | XMS REPORT ---
Author IVAN Hickman [employer]ClinicalWorks Address Unknown Phone Unavailable Care Team Providers Care Mechanotherapist Name Role Phone IVAN SOLOMON CP Unavailable Allergies, Adverse Reactions, Alerts Substance Reaction Event Type Promethazine VC/Codeine stomach upset Drug Allergy Problems Problem Type Condition Code Onset Dates Condition Status Problem Family history of cardiovascular disease Z82.49 Active Problem Dyslipidemia E78.5 Active Problem Dyspnea on exertion R06.09 Active Problem Hypertension I10 Active Assessment Hypertension I10 Active Problem Pure hypercholesterolemia E78.0 Active Assessment Insomnia, unspecified type G47.00 Active Assessment 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 Problem Insomnia, unspecified type G47.00 Active Problem Vitamin D deficiency E55.9 Active Problem 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 Problem Facial rash R21 Active Problem Other and unspecified hyperlipidemia E78.5 Active Problem Essential hypertension, benign 401.1 Active Problem Other and unspecified hyperlipidemia 272.4 Active Problem Nonspecific low blood pressure reading 796.3 Active Problem Counseling on substance use and abuse V65.42 Active Problem Skin lesion of back L98.9 Active Problem Smoking F17.200 Active Problem Nonspecific abnormal results of liver function study 794.8 Active Problem Other emphysema J43.8 Active Problem Hot flashes N95.1 Active Problem Borderline abnormal thyroid function test R94.6 Active Medications Medication Code System Code Instructions Start Date End Date Status Dosage Spiriva Respimat [facility] [address]-59 2.5 MCG/ACT Inhalation Once a day 2 puffs Diltiazem CD [facility] [address]-99 120 MG Orally Once a day 1 capsule Albuterol Sulfate [facility] [address]-71 2.5 mg /3 mL (0.083 %) Apr 25, 2014 1 Each by Inhalation route every 4 hours for cough and wheeze PRN for wheezing or cough Fish Oil [facility] [address]-03 1000 MG Orally Once a day 1 capsule Effexor XR [facility] [address]-25 75 MG Orally Once a day Apr 25, 2015 1 capsule with food D3-50 [facility] [address]-33 71942 UNIT Orally not defined Zetia [facility] [address]-89 10 mg Jul 11, 2014 take 1 tablet (10 mg) by oral route once daily Albuterol Sulfate [facility] [address]-98 108 (90 Base) MCG/ACT Inhalation every 4 hrs Apr 03, 2015 1 puff as needed Aspirin [facility] [address]-50 81 mg Apr 08, 2014 take 1 tablet (81 mg) by oral route once daily Lisinopril [facility] [address]-47 5 MG Orally Once a day September 12, 2015 1 tablet Crestor [facility] [address]-14 10 MG Orally Once a day 1 tablet Ambien [facility] [address]-88 5 MG Orally Once a day PRN for sleep September 12, 2015 1 tablet at bedtime pantoprazole [facility] 0 40 mg Apr 08, 2014 take 1 tablet (40 mg) by oral route 2 times per day Procedures Procedure Coding System Code Date Office Visit, Est Pt., Level 3 CPT-4 99462 September 12, 2015 Vital Signs Date/Time: September 12, 2015 Temperature 98.9 F Weight 144.6 lbs Height 65 in BMI 24.06 Index Blood Pressure Diastolic 92 mmHg Blood Pressure Systolic 142 mmHg Cardiac Monitoring Heart Rate 84 bpm Results No Known Results Summary Purpose eClinicalWorks Submission
--- OUTSIDE RECORDS SUMMARY | 2019-04-01 10:44 | XMS REPORT ---
Author Author KEVIN BEJARANO [facility] [address] [place] [address] Care Team Providers Care A Operator Name Role Phone KEVIN BEJARANO Unavailable PROBLEMS Type Condition ICD9-CM Code SKT13-KF Code Onset Dates Condition Status SNOMED Code Problem Hot flashes N95.1 Active 796006713 Problem Skin lesion of back L98.9 Active 39016085 Problem Familial hypercholesterolemia E78.0 Active 898644924 Problem Smoking F17.200 Active 91341867 Problem Gastroparesis K31.84 Active 740261112 Problem Other emphysema J43.8 Active 63853471 Problem Anxiety F41.9 Active 93837739 Problem Primary insomnia F51.01 Active 6629339 Problem Other insomnia G47.09 Active 446957568 Problem Menopausal hot flushes N95.1 Active 588093828 Problem Chronic obstructive pulmonary disease, unspecified COPD type J44.9 Active 95120329 Problem Dyspnea on exertion R06.09 Active 91044081 Problem Family history of cardiovascular disease Z82.49 Active 911794177 Problem Borderline abnormal thyroid function test R94.6 Active 928553599 Problem History of thyroidectomy E89.0 Active 187749732 Problem Atrial tachycardia I47.1 Active 897251793 Problem Essential hypertension I10 Active 36053894 Problem Thyroiditis E06.9 Active 48010488 Problem Vitamin D deficiency E55.9 Active 19673319 Problem Other and unspecified hyperlipidemia E78.5 Active 59746944 Problem Dyslipidemia E78.5 Active 881615586 Problem 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 08030143 Problem Insomnia, unspecified type G47.00 Active 682671890 Problem Elevated LFTs R79.89 Active 288237353 Problem Facial rash R21 Active 867165077 Problem Hypertension I10 Active 64192389 ALLERGIES No Information ENCOUNTERS Encounter Location Date Diagnosis [facility] [address] [place] [address] Feb, Mucous cyst of nasal sinus J34.1 [facility] [address] [place] [address] Jan, [facility] [place] [address] [place] [address] Dec, [facility] [place] [address] [place] [address] Dec, Primary insomnia F51.01 ; Anxiety F41.9 and Menopausal hot flushes N95.1 [facility] [place] [address] [place] [address] October, Dry mouth, unspecified R68.2 ; Pharyngitis, unspecified etiology J02.9 and Primary insomnia F51.01 [facility] [address] [place] [address] October, [facility] [place] [address] [place] [address] Sep, [facility] [place] [address] [place] [address] Sep, Hemoptysis R04.2 [facility] [address] [place] [address] Sep, Primary insomnia F51.01 [facility] [address] [place] [address] Sep, Adverse effect of drug, initial encounter T88.7XXA [facility] [address] [place] [address] Aug, Adverse effect of drug, initial encounter T88.7XXA [facility] [place] [address] [place] [address] Aug, Primary insomnia F51.01 [facility] [place] [address] [place] [address] Jul, [facility] [place] [address] [place] [address] Jul, Primary insomnia F51.01 [facility] [address] [facility] [id number] [address] Jul, [facility] [place] [address] [place] [address] Jul, Atrial tachycardia I47.1 Thao KINGSLEY [address] [place] [address] Jul, Thao [place] [address] [place] [address] Jun, Flu-like symptoms R68.89 and Chronic obstructive pulmonary disease, unspecified COPD type J44.9 Thao KINGSLEY [address] [place] [address] Jun, Thao [address] [place] [address] Jun, Thao [address] [place] [address] Jun, Vin LINTON [address] [place] [address] Jun, Epigastric pain R10.13 ; Diarrhea, unspecified type R19.7 and Non-intractable vomiting without nausea, unspecified vomiting type R11.[address] [place] [address] May, Thao [address] [address] May, Chronic nonintractable headache, unspecified headache type R51 Vin [address] [address] May, Vin [address] [address] May, Essential hypertension I10 ; Thyroiditis E06.9 and Nonintractable episodic headache, unspecified headache type R51 Vin [address] [place] [address] Feb, Dyslipidemia E78.5 ; Vitamin D deficiency E55.9 and Atherosclerosis of left carotid artery I65.22 Vin KINGSLEY [address] [place] [address] Jan, [facility] [place] [address] [place], [place] [id number] [place] [address] Dec, [facility] [address] [address] Dec, Atrial tachycardia I47.1 ; History of thyroidectomy E89.0 ; Primary insomnia F51.01 and Tobacco use Z72.0 [facility] [address] [place] [address] October, Galactorrhea O92.6 [facility] [address] [address] October, [facility] [address] [address] October, [facility] [address] [address] October, [facility] [address] [address] October, Cough R05 and Other chest pain R07.[address] [address] Sep, Dysuria R30.0 ; Acute cystitis without hematuria N30.00 and Chest tightness or pressure R07.[address] [address] Sep, [facility] [address] [address] Sep, Acute bilateral low back pain without sciatica M54.[address] [address] Aug, Dermatitis L30.9 ; Other insomnia G47.09 and Anxiety F41.[address] [address] Aug, [address] [address] Aug, Hypertension I10 ; Dyslipidemia E78.5 and Vitamin D deficiency E55.9 [facility] [address] [place] [address] Jun, Anxiety F41.9 and Hypertension I10 [facility] [place] [id number] [address] Jun, [facility] [address] [place] [address] Jun, Anxiety F41.9 and Hypertension I10 Thao [address] [place] [address] Jun, [facility] [address] [place] [address] May, [facility] [address] [place] [address] May, Acute upper back pain M54.9 and Hypertension I10 [facility] [address] [address] Apr, [facility] [address] [address] Apr, Mid-back pain, acute M54.9 ; Dyslipidemia E78.5 and Hypertension I10 S[facility]IA [address] [place] [address] Apr, [facility] [address] [address] Apr, Vin [address] [address] Feb, Familial hypercholesterolemia E78.0 ; Occlusion and stenosis of left carotid artery I65.22 and Vitamin D deficiency E55.9 [facility] [address] [place] [address] Feb, [facility] [address] [address] Feb, Fever, unspecified fever cause R50.9 and Acute non-recurrent maxillary sinusitis J01.00 [facility] [address] [address] Jan, [facility] [address] [address] Jan, [facility] [address] [address] Jan, Nodule of neck R22.1 and Night sweats R61 [address] [address] Dec, [address] [address] Dec, [address] [address] Nov, [address] [address] Nov, [address] [address] October, Acute upper respiratory infection, unspecified J06.9 ; Other viral agents as the cause of diseases classified elsewhere B97.89 and Calculus of gallbladder without cholecystitis without obstruction K80.[address] [address] Sep, Insomnia, unspecified type G47.00 ; Hypertension I10 and Elevated LFTs R79.[address] [address] Sep, Bleeding after intercourse N93.0 and Dysuria R30.[address] [address] Aug, Dysuria R30.0 and Pyuria N39.[address] [address] Aug, Hypertension I10 ; Insomnia, unspecified type G47.00 and 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 [facility] [address] [place] [address] 12 Jul, 2015 Pain of upper extremity M79.603 ; Hypertension I10 and Pure hypercholesterolemia E78.[address] [address] 09 Jul, 2015 Physical exam, pre-employment Z02.1 ; Visit for TB skin test Z11.1 ; Facial rash R21 and 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 [address] 04 Feb, 2016 Other and unspecified hyperlipidemia E78.5 ; Vitamin D deficiency E55.9 and Borderline abnormal thyroid function test R94.[address] [address] Jun, 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 ; Dyslipidemia E78.5 ; Dyspnea on exertion R06.09 ; Family history of cardiovascular disease Z82.49 and Borderline abnormal thyroid function test R94.[address] [address] May, Other emphysema J43.8 ; Smoking F17.200 and Tobacco abuse counseling Z71.[address] [address] May, Cough R05 and Other emphysema J43.[address] [address] Apr, [address] [address] Apr, Skin lesion of back L98.9 and Skin lesion L98.[address] [address] Apr, Skin lesion of back L98.9 and Hot flashes N95.[address] [address] Mar, Bronchitis J40 [address] [address] Mar, Acute pharyngitis, unspecified J02.9 and Upper respiratory infection with cough and congestion J06.[address] [address] Mar, Bronchitis J40 ; Shortness of breath R06.02 ; Encounter for screening mammogram for breast cancer Z12.31 and Yeast infection B37.[address] [address] Jan, Other and unspecified hyperlipidemia 272.4 and Hypothyroidism 244.[address] [address] Dec, [facility] [place] [address] [place] [address] Nov, Diarrhea 787.91 and Nausea 787.02 [facility] [place] [address] [place] [address] October, Other and unspecified hyperlipidemia 272.4 [facility] [place] [address] [place] [address] October, Lumbago 724.2 [facility] [id number] [place] [address] Sep, [facility] [place] [id number] [place] [address] Sep, [facility] [place] [id number] [place] [address] Aug, [facility] [place] [address] [place] [address] Aug, [facility] [place] [address] [place] [address] Jun, [facility] [place] [address] [address] Jun, [facility] [place] [address] [address] May, [facility] [place] [address] [address] May, [facility] [place] [address] [place] [address] May, [facility] [place] [address] [place] [address] Apr, [facility] [place] [id number] [place] [address] Apr, [facility] [place] [address] [place] [address] Mar, [facility] [place] [address] [address] Mar, [facility] [place] [address] [facility] [place] [address] Mar, [facility] [id number] [address] Mar, [facility] [id number] [place] [address] Mar, [facility] [place] [address] [place] [address] Mar, [facility] [place] [address] [facility] [place] [address] Feb, [facility] [id number] [place] [address] Feb, [facility] [place] [address] [place] [address] Jan, [facility] [id number] [address] Jan, [facility] [id number] [address] Jan, [facility] [id number] [address] Jan, [facility] [place] [address] [place] [address] Jan, [facility] [id number] [address] Jan, [facility] [place] [address] [place] [address] Dec, [facility] [id number] [address] Dec, [facility] [address] [facility] [id number] [address] Dec, [facility] [id number] [address] Dec, [facility] [place] [address] [place] [address] Dec, [facility] [place] [address] [facility] [place] [address] Dec, [facility] [place] [id number] [address] Dec, [facility] [place] [address] [place] [address] October, [facility] [address] [facility] [id number] [address] October, [facility] [place] [address] [facility] [id number] [address] October, [facility] [place] [address] [facility] [place] [address] Sep, [facility] [id number] [address] Sep, [facility] [place] [address] [place] [address] Sep, [facility] [id number] [address] Sep, [facility] [id number] [address] Aug, [facility] [place] [address] [place] [address] Aug, [facility] [id number] [address] Jun, [facility] [address] [facility] [id number] [address] Jun, [facility] [place] [address] [place] [address] Jun, [facility] [place] [address] [place] [address] May, [facility] [id number] [address] May, [facility] [place] [id number] [address] May, [facility] [address] [address] [place] [address] May, [facility] [place] [address] [place] [address] Apr, [facility] [place] [address] [facility] [id number] [address] Apr, [facility] [place] [id number] [address] Feb, [facility] [place] [address] [place] [address] Feb, IMMUNIZATIONS No Known Immunizations SOCIAL HISTORY Never Assessed REASON FOR VISIT Medication refill request PLAN OF CARE VITAL SIGNS MEDICATIONS Medication [...]
--- OUTSIDE RECORDS SUMMARY | 2019-04-01 10:44 | XMS REPORT ---
Author Author KEVIN BEJARANO Organization [facility] [address] [place] [address] Care Team Providers Care Behavioral Instructor Name Role Phone KEVIN BEJARANO Unavailable PROBLEMS Type Condition ICD9-CM Code TOG10-YA Code Onset Dates Condition Status SNOMED Code Problem Hot flashes N95.1 Active 712695223 Problem Skin lesion of back L98.9 Active 76111732 Problem Familial hypercholesterolemia E78.0 Active 780569788 Problem Smoking F17.200 Active 30041068 Problem Gastroparesis K31.84 Active 235266926 Problem Other emphysema J43.8 Active 08635680 Problem Anxiety F41.9 Active 56231391 Problem Primary insomnia F51.01 Active 5175826 Problem Other insomnia G47.09 Active 136941773 Problem Menopausal hot flushes N95.1 Active 386586619 Problem Chronic obstructive pulmonary disease, unspecified COPD type J44.9 Active 14671870 Problem Dyspnea on exertion R06.09 Active 24401616 Problem Family history of cardiovascular disease Z82.49 Active 220967346 Problem Borderline abnormal thyroid function test R94.6 Active 261128190 Problem History of thyroidectomy E89.0 Active 509683841 Problem Atrial tachycardia I47.1 Active 590458612 Problem Essential hypertension I10 Active 62567233 Problem Thyroiditis E06.9 Active 05020611 Problem Vitamin D deficiency E55.9 Active 64184749 Problem Other and unspecified hyperlipidemia E78.5 Active 66561732 Problem Dyslipidemia E78.5 Active 724048801 Problem 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 88882348 Problem Insomnia, unspecified type G47.00 Active 487452663 Problem Elevated LFTs R79.89 Active 065181543 Problem Facial rash R21 Active 560903388 Problem Hypertension I10 Active 29239221 ALLERGIES No Information ENCOUNTERS Encounter Location Date Diagnosis [facility] [address] [place] [address] Feb, Mucous cyst of nasal sinus J34.1 [facility] [address] [place] [address] Jan, [facility] [place] [address] [place] [address] Dec, [facility] [place] [address] [place] [address] Dec, Primary insomnia F51.01 ; Anxiety F41.9 and Menopausal hot flushes N95.1 [facility] [place] [address] [place] [address] October, Dry mouth, unspecified R68.2 ; Pharyngitis, unspecified etiology J02.9 and Primary insomnia F51.[address] [facility] [address] [place] [address] October, [facility] [place] [address] [place] [address] Sep, [facility] [place] [address] [place] [address] Sep, Hemoptysis R04.[address] [facility] [address] [place] [address] Sep, Primary insomnia F51.01 [facility] [place] [address] [place] [address] Sep, Adverse effect of drug, initial encounter T88.7XXA [facility] [address] [place] [address] Aug, Adverse effect of drug, initial encounter T88.7XXA [facility] [place] [address] [place] [address] Aug, Primary insomnia F51.01 [facility] [place] [address] [place] [address] Jul, [facility] [place] [address] [place] [address] Jul, Primary insomnia F51.01 [facility] [address] [facility] [id number] [address] Jul, [facility] [place] [address] [place] [address] Jul, Atrial tachycardia I47.1 Thao [facility]INGSLEY [address] [place] [address] Jul, Thao [place] [address] [place] [address] Jun, Flu-like symptoms R68.89 and Chronic obstructive pulmonary disease, unspecified COPD type J44.9 Thao [facility] [address] [place] [address] Jun, [facility] [address] [place] [address] Jun, Th[facility] [address] [place] [address] Jun, Vin [place] [address] [place] [address] Jun, Epigastric pain R10.13 ; Diarrhea, unspecified type R19.7 and Non-intractable vomiting without nausea, unspecified vomiting type R11.[address] [place] [address] May, Thao [address] [address] May, Chronic nonintractable headache, unspecified headache type R51 Vin [address] [address] May, Vin [address] [address] May, Essential hypertension I10 ; Thyroiditis E06.9 and Nonintractable episodic headache, unspecified headache type R51 Vin [address] [place] [address] Feb, Dyslipidemia E78.5 ; Vitamin D deficiency E55.9 and Atherosclerosis of left carotid artery I65.22 Vin KINGSLEY [address] [place] [address] Jan, [facility] [address] [place], [place] [id number] [place] [address] Dec, [facility] [address] [address] Dec, Atrial tachycardia I47.1 ; History of thyroidectomy E89.0 ; Primary insomnia F51.01 and Tobacco use Z72.0 [facility] [place] [address] [place] [address] October, Galactorrhea O92.6 [facility] [address] [address] October, [facility] [address] [address] October, [facility] [address] [address] October, [facility] [address] [address] October, Cough R05 and Other chest pain R07.[address] [address] Sep, Dysuria R30.0 ; Acute cystitis without hematuria N30.00 and Chest tightness or pressure R07.[address] [address] Sep, [facility] [address] [address] Sep, Acute bilateral low back pain without sciatica M54.[address] [address] Aug, Dermatitis L30.9 ; Other insomnia G47.09 and Anxiety F41.[address] [address] Aug, [address] [address] Aug, Hypertension I10 ; Dyslipidemia E78.5 and Vitamin D deficiency E55.9 [facility] [address] [place] [address] Jun, Anxiety F41.9 and Hypertension I10 [facility] [id number] [address] Jun, [facility] [address] [place] [address] Jun, Anxiety F41.9 and Hypertension I10 Thao [address] [place] [address] Jun, [facility] [place] [address] [place] [address] May, [facility] [place] [address] [place] [address] May, Acute upper back pain M54.9 and Hypertension I10 [facility] [address] [address] Apr, [facility] [address] [address] Apr, Mid-back pain, acute M54.9 ; Dyslipidemia E78.5 and Hypertension I10 [facility] [address] [place] [address] Apr, [facility] [address] [address] Apr, Vin [address] [address] Feb, Familial hypercholesterolemia E78.0 ; Occlusion and stenosis of left carotid artery I65.22 and Vitamin D deficiency E55.9 [facility] [place] [address] [place] [address] Feb, [facility] [address] [address] Feb, Fever, unspecified fever cause R50.9 and Acute non-recurrent maxillary sinusitis J01.00 [facility] [address] [address] Jan, [facility] [address] [address] Jan, [facility] [address] [address] Jan, Nodule of neck R22.1 and Night sweats R61 [address] [address] Dec, [address] [address] Dec, [address] [address] Nov, [address] [address] Nov, [address] [address] October, Acute upper respiratory infection, unspecified J06.9 ; Other viral agents as the cause of diseases classified elsewhere B97.89 and Calculus of gallbladder without cholecystitis without obstruction K80.[address] [address] Sep, Insomnia, unspecified type G47.00 ; Hypertension I10 and Elevated LFTs R79.[address] [address] Sep, Bleeding after intercourse N93.0 and Dysuria R30.[address] [address] Aug, Dysuria R30.0 and Pyuria N39.[address] [address] Aug, Hypertension I10 ; Insomnia, unspecified type G47.00 and 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 [facility] [address] [place] [address] 12 Jul, 2015 Pain of upper extremity M79.603 ; Hypertension I10 and Pure hypercholesterolemia E78.[address] [address] 09 Jul, 2015 Physical exam, pre-employment Z02.1 ; Visit for TB skin test Z11.1 ; Facial rash R21 and 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 [address] 04 Feb, 2016 Other and unspecified hyperlipidemia E78.5 ; Vitamin D deficiency E55.9 and Borderline abnormal thyroid function test R94.[address] [address] Jun, 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 ; Dyslipidemia E78.5 ; Dyspnea on exertion R06.09 ; Family history of cardiovascular disease Z82.49 and Borderline abnormal thyroid function test R94.[address] [address] May, Other emphysema J43.8 ; Smoking F17.200 and Tobacco abuse counseling Z71.[address] [address] May, Cough R05 and Other emphysema J43.[address] [address] Apr, [address] [address] Apr, Skin lesion of back L98.9 and Skin lesion L98.[address] [address] Apr, Skin lesion of back L98.9 and Hot flashes N95.[address] [address] Mar, Bronchitis J40 [address] [address] Mar, Acute pharyngitis, unspecified J02.9 and Upper respiratory infection with cough and congestion J06.[address] [address] Mar, Bronchitis J40 ; Shortness of breath R06.02 ; Encounter for screening mammogram for breast cancer Z12.31 and Yeast infection B37.[address] [address] Jan, Other and unspecified hyperlipidemia 272.4 and Hypothyroidism 244.[address] [address] Dec, [facility] [place] [address] [place] [address] Nov, Diarrhea 787.91 and Nausea 787.02 [facility] [place] [address] [place] [address] October, Other and unspecified hyperlipidemia 272.4 [facility] [place] [address] [place] [address] October, Lumbago 724.2 [facility] [id number] [place] [address] Sep, [facility] [id number] [place] [address] Sep, [facility] [id number] [place] [address] Aug, [facility] [place] [address] [place] [address] Aug, [facility] [place] [address] [place] [address] Jun, [facility] [address] [address] Jun, [facility] [address] [address] May, [facility] [address] [address] May, [facility] [place] [address] [place] [address] May, [facility] [place] [address] [place] [address] Apr, [facility] [id number] [place] [address] Apr, [facility] [place] [address] [place] [address] Mar, [facility] [address] [address] Mar, [facility] [place] [address] [facility] [place] [address] Mar, [facility] [id number] [address] Mar, [facility] [id number] [place] [address] Mar, [facility] [place] [address] [place] [address] Mar, [facility] [place] [address] [facility] [place] [address] Feb, [facility] [id number] [place] [address] Feb, [facility] [place] [address] [place] [address] Jan, [facility] [id number], [place] [address] Jan, [facility] [id number], [place] [address] Jan, [facility] [id number] [address] Jan, [facility] [place] [address] [place] [address] Jan, [facility] [id number], [place] [address] Jan, [facility] [place] [address] [place] [address] Dec, [facility] [id number] [address] Dec, [facility] [address] [facility] [id number], [place] [address] Dec, [facility] [id number], [place] [address] Dec, [facility] [place] [address] [place] [address] Dec, [facility] [place] [address] [facility] [place] [address] Dec, [facility] [id number] [address] Dec, [facility] [place] [address] [place] [address] October, [facility] [address] [facility] [id number], [place] [address] October, [facility] [address] [facility] [id number], [place] [address] October, [facility] [place] [address] [facility] [place] [address] Sep, [facility] [id number] [address] Sep, [facility] [place] [address] [place] [address] Sep, [facility] [id number], [place] [address] Sep, [facility] [id number], [place] [address] Aug, [facility] [place] [address] [place] [address] Aug, [facility] [id number], [place] [address] Jun, [facility] [address] [facility] [id number], [place] [address] Jun, [facility] [place] [address] [place] [address] Jun, [facility] [place] [address] [place] [address] May, [facility] [id number] [address] May, [facility] [id number], [place] [address] May, [facility] [address] [place] [address] May, [facility] [address] [place] [address] Apr, [facility] [address] [facility] [id number], [place] [address] Apr, [facility] [id number] [address] Feb, [facility] [address] [place] [address] Feb, IMMUNIZATIONS No Known Immunizations SOCIAL HISTORY Never Assessed REASON FOR VISIT Medication question PLAN OF CARE VITAL SIGNS MEDICATIONS Unknown [...]
--- OUTSIDE RECORDS SUMMARY | 2019-04-01 10:45 | XMS REPORT ---
Author Author KEVIN BEJARANO [facility] [address] Address [address] [place] [address] Care Team Providers Care Chorus Master Name Role Phone KEVIN BEJARANO Unavailable PROBLEMS Type Condition ICD9-CM Code JBY24-VB Code Onset Dates Condition Status SNOMED Code Problem Hot flashes N95.1 Active 310103750 Problem Skin lesion of back L98.9 Active 02216922 Problem Familial hypercholesterolemia E78.0 Active 941309023 Problem Smoking F17.200 Active 25754813 Problem Gastroparesis K31.84 Active 842512382 Problem Other emphysema J43.8 Active 75988082 Problem Anxiety F41.9 Active 52983792 Problem Primary insomnia F51.01 Active 4455586 Problem Other insomnia G47.09 Active 409657251 Problem Menopausal hot flushes N95.1 Active 496590324 Problem Chronic obstructive pulmonary disease, unspecified COPD type J44.9 Active 88007223 Problem Dyspnea on exertion R06.09 Active 55661704 Problem Family history of cardiovascular disease Z82.49 Active 708169050 Problem Borderline abnormal thyroid function test R94.6 Active 921105720 Problem History of thyroidectomy E89.0 Active 642110347 Problem Atrial tachycardia I47.1 Active 829168247 Problem Essential hypertension I10 Active 21649581 Problem Thyroiditis E06.9 Active 85562679 Problem Vitamin D deficiency E55.9 Active 07789415 Problem Other and unspecified hyperlipidemia E78.5 Active 69375512 Problem Dyslipidemia E78.5 Active 326309727 Problem 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 [address] [place] [address] 07 Feb, 2018 Mucous [facility] of [facility] sinus [facility]34.1 [facility] [address] [place] [address] [place] [address] Jan, [facility] [place] [address] [place] [address] Dec, [facility] [place] [address] [place] [address] Dec, Primary insomnia F51.01 ; Anxiety F41.9 and Menopausal hot flushes N95.1 [facility] [place] [address] [place] [address] October, Dry mouth, unspecified R68.2 ; Pharyngitis, unspecified etiology J02.9 and Primary insomnia F51.01 Vin [place] [address] [place] [address] October, zLenyCSKORINA [place] [address] [place] [address] Sep, [facility] [place] [address] [place] [address] Sep, Hemoptysis R04.2 [facility] [place] [address] [place] [address] Sep, Primary insomnia F51.01 Th[facility] [place] [address] [place] [address] Sep, Adverse effect of drug, initial encounter T88.7XXA [facility] [place] [address] [place] [address] Aug, Adverse effect of drug, initial encounter T88.7XXA [facility] [address] [place] [address] Aug, Primary insomnia F51.01 [facility] [place] [address] [place] [address] Jul, [facility] [place] [address] [place] [address] Jul, Primary insomnia F51.01 [facility] [address] [id number] [address] 16 Jul, 2017 Thao [facility] [address] [place] [address] Jul, Atrial tachycardia I47.1 Th[facility] [address] [place] [address] 02 Jul, 2017 Thao [place] [address] [place] [address] Jun, Flu-like symptoms R68.89 and Chronic obstructive pulmonary disease, unspecified COPD type J44.9 [facility] [place] [address] [place] [address] Jun, Thao [place] [address] [place] [address] Jun, Thao [place] [address] [place] [address] Jun, Thao [place] [address] [place] [address] Jun, Epigastric pain R10.13 ; Diarrhea, unspecified type R19.7 and Non-intractable vomiting without nausea, unspecified vomiting type R11.11 [facility] [address] [place] [address] [id number] [address] 15 May, 2017 Thao KINGSLEY [address] [place] [address] 13 May, 2017 Chronic nonintractable headache, unspecified headache type R51 Thao [place] [address] [place] [address] 06 May, 2017 Vin [place] [address] [place] [address] 04 May, 2017 Essential hypertension I10 ; Thyroiditis E06.9 and Nonintractable episodic headache, unspecified headache type R51 Th[facility] [place] [address] [place] [address] 18 Feb, 2017 Dyslipidemia E78.5 ; Vitamin D deficiency E55.9 and Atherosclerosis of left carotid artery I65.22 Vin [place] [address] [place] [address] Jan, [facility] [address] [facility] [id number] [place] [address] Dec, [facility] [address] [address] Dec, Atrial tachycardia I47.1 ; History of thyroidectomy E89.0 ; Primary insomnia F51.01 and Tobacco use Z72.[address] [address] October, Galactorrhea O92.6 [facility] [address] [address] October, [facility] [address] [address] October, [facility] [address] [address] October, [facility] [address] [address] October, Cough R05 and Other chest pain R07.[address] [address] Sep, Dysuria R30.0 ; Acute cystitis without hematuria N30.00 and Chest tightness or pressure R07.[address] [address] Sep, [facility] [address] [address] Sep, Acute bilateral low back pain without sciatica M54.[address] [address] Aug, Dermatitis L30.9 ; Other insomnia G47.09 and Anxiety F41.[address] [address] Aug, [address] [address] Aug, Hypertension I10 ; Dyslipidemia E78.5 and Vitamin D deficiency E55.[address] [address] Jun, Anxiety F41.9 and Hypertension I10 [facility] [address] [facility] [id number] [place] [address] Jun, [facility] [place] [address] [place] [address] Jun, Anxiety F41.9 and Hypertension I10 [facility] [place] [address] [place] [address] Jun, [facility] [place] [address] [place] [address] May, [facility] [place] [address] [place] [address] May, Acute upper back pain M54.9 and Hypertension I10 [facility] [place] [address] [place] [address] Apr, [facility] [place] [address] [place] [address] Apr, Mid-back pain, acute M54.9 ; Dyslipidemia E78.5 and Hypertension I10 [facility] [place] [address] [place] [address] Apr, [facility] [address] [place] [address] Apr, [facility] [place] [address] [place] [address] Feb, Familial hypercholesterolemia E78.0 ; Occlusion and stenosis of left carotid artery I65.22 and Vitamin D deficiency E55.9 [facility] [address] [place] [address] Feb, [facility] [place] [address] [place] [address] Feb, Fever, unspecified fever cause R50.9 and Acute non-recurrent maxillary sinusitis J01.00 [facility] [place] [address] [place] [address] Jan, [facility] [place] [address] [place] [address] Jan, [facility] [place] [address] [place] [address] Jan, Nodule of neck R22.1 and Night sweats R61 [address] [address] Dec, [address] [address] Dec, [address] [address] Nov, [address] [address] Nov, [address] [address] October, Acute upper respiratory infection, unspecified J06.9 ; Other viral agents as the cause of diseases classified elsewhere B97.89 and Calculus of gallbladder without cholecystitis without obstruction K80.[address] [address] Sep, Insomnia, unspecified type G47.00 ; Hypertension I10 and Elevated LFTs R79.[address] [address] Sep, Bleeding after intercourse N93.0 and Dysuria R30.[address] [address] Aug, Dysuria R30.0 and Pyuria N39.[address] [address] Aug, Hypertension I10 ; Insomnia, unspecified type G47.00 and 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 [address] 12 Jul, 2015 Pain of upper extremity M79.603 ; Hypertension I10 and Pure hypercholesterolemia E78.[address] [address] 09 Jul, 2015 Physical exam, pre-employment Z02.1 ; Visit for TB skin test Z11.1 ; Facial rash R21 and 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 [address] 04 Jul, 2015 Other and unspecified hyperlipidemia E78.5 ; Vitamin D deficiency E55.9 and Borderline abnormal thyroid function test R94.[address] [address] 12 Jun, 2015 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 ; Dyslipidemia E78.5 ; Dyspnea on exertion R06.09 ; Family history of cardiovascular disease Z82.49 and Borderline abnormal thyroid function test R94.[address] [address] May, Other emphysema J43.8 ; Smoking F17.200 and Tobacco abuse counseling Z71.[address] [address] 07 May, 2015 Cough R05 and Other emphysema J43.[address] [address] Apr, [address] [address] 04 Apr, 2015 Skin lesion of back L98.9 and Skin lesion L98.[address] [address] Apr, Skin lesion of back L98.9 and Hot flashes N95.[address] [address] Mar, Bronchitis J40 [address] [address] 09 Mar, 2015 Acute pharyngitis, unspecified J02.9 and Upper respiratory infection with cough and congestion J06.[address] [address] Mar, Bronchitis J40 ; Shortness of breath R06.02 ; Encounter for screening mammogram for breast cancer Z12.31 and Yeast infection B37.[address] [address] Jan, Other and unspecified hyperlipidemia 272.4 and Hypothyroidism 244.9 [facility] [place] [address] [place] [address] Dec, [facility] [place] [address] [place] [address] Nov, Diarrhea 787.91 and Nausea 787.02 [facility] [place] [address] [place] [address] October, Other and unspecified hyperlipidemia 272.4 [facility] [place] [address] [place] [address] October, Lumbago 724.2 [facility] [id number] [place] [address] Sep, [facility] [id number] [place] [address] Sep, [facility] [id number] [place] [address] Aug, [facility] [place] [address] [place] [address] Aug, [facility] [place] [address] [place] [address] Jun, [facility] [id number] [place] [address] Jun, [facility] [id number] [place] [address] May, [facility] [id number] [place] [address] May, [facility] [place] [address] [place] [address] May, [facility] [place] [address] [place] [address] Apr, [facility] [address], [place] [address] Apr, [facility] [place] [address] [place] [address] Mar, [facility] [id number], [place] [address] Mar, [facility] [place] [address] [place] [address] Mar, [facility] [id number], [place] [address] Mar, [facility] [address], [place] [address] Mar, [facility] [place] [address] [place] [address] Mar, [facility] [place] [address] [place] [address] Feb, [facility] [address], [place] [address] Feb, [facility] [place] [address] [place] [address] Jan, [facility] [address], [place] [address] Jan, [facility] [address], [place] [address] Jan, [facility] [address], [place] [address] Jan, [facility] [place] [address] [place] [address] Jan, [facility] [address], [place] [address] Jan, [facility] [place] [address] [place] [address] Dec, [facility] [address], [place] [address] Dec, [facility] [address], [place] [address] Dec, [facility] [address], [place] [address] Dec, [facility] [place] [address] [facility] [place] [address] Dec, [facility] [place] [address] [place] [address] Dec, [facility] [address] [facility] [id number], [place] [address] Dec, [facility] [place] [address] [facility] [place] [address] October, [facility] [address] [facility] [id number], [place] [address] October, [facility] [id number] [place] [address] October, [facility] [place] [address] [place] [address] Sep, [facility] [id number], [place] [address] Sep, [facility] [place] [address] [place] [address] Sep, [facility] [id number], [place] [address] Sep, [facility] [id number], [place] [address] Aug, [facility] [place] [address] [place] [address] Aug, [facility] [address] [facility] [id number], [place] [address] Jun, [facility] [address] [facility] [id number], [place] [address] Jun, [facility] [place] [address] [place] [address] Jun, [facility] [place] [address] [place] [address] May, [facility] [id number], [place] [address] May, [facility] [address] [facility] [id number], [place] [address] May, Vin [place] [address] [place] [address] May, [facility] [place] [address] [place] [address] Apr, [facility] [id number], [place] [address] Apr, [facility] [address] [facility] [id number], [place] [address] Feb, [facility] [place] [address] [place] [address] Feb, IMMUNIZATIONS No Known Immunizations SOCIAL HISTORY Never Assessed REASON FOR VISIT Depression--sarah CHÁVEZ, Pt has concerns that she may be possibly starting menopa use. She is very emotional, tired and latham, etc.. But she does have other issue s that are going on that could possibly trigger it. She thinks possibly anxiety could be the issue PLAN OF CARE Activity Details Follow Up prn Reason: VITAL SIGNS Height 65 in 2018-01-01 Weight 145 lbs 2018-01-01 Temperature 98.8 degrees Fahrenheit 2018-01-01 Heart Rate 88 bpm 2018-01-01 Respiratory Rate 16 2018-01-01 BMI 24.13 kg/m2 2018-01-01 Blood pressure systolic 124 mmHg 2018-01-01 Blood pressure diastolic 76 mmHg 2018-01-01 MEDICATIONS Medication Instructions Dosage Frequency Start Date End Date Duration Status Zetia 10 mg take 1 tablet (10 mg) by oral route once daily Jun, Active pantoprazole 40 mg take 1 tablet (40 mg) by oral route 2 times per day Mar, Active Aspirin 81 mg take 1 tablet (81 mg) by oral route once daily Mar, Active Spiriva Respimat 2.5 MCG/ACT INHALE 2 PUFFS DAILY 30 Active D3-50 71867 UNIT Active Venlafaxine HCl 37.5 MG Orally twice a day 1 tablet with food 12h Dec, 30 day(s) Active Verapamil HCl ER 180 MG Orally Once a day 1 tablet 24h Active Crestor 10 MG Orally Once a day 1 tablet 24h Active Fish Oil 1000 MG Orally Once a day 1 capsule 24h Active Losartan Potassium 50 MG Orally Once a day 1 tablet 24h Active RESULTS No Results PROCEDURES Procedure Date Ordered Result Body Site GONADOTROPIN (LH) January 01, 2018 GONADOTROPIN (FSH) January 01, 2018 VENIPUNCT, ROUTINE* January 01, 2018 INSTRUCTIONS MEDICATIONS ADMINISTERED No Known Medications MEDICAL [...]
--- OUTSIDE RECORDS SUMMARY | 2019-04-01 10:45 | XMS REPORT ---
Author Author ASHELY OTT Organization [facility] [address] Address [address] [place] [address] Care Team Providers Care Dish Person Name Role Phone ASHELY OTT Unavailable PROBLEMS Type Condition ICD9-CM Code AOQ63-[place] Code Onset Dates Condition Status SNOMED Code Problem Hot flashes N95.1 Active 469181246 Problem Skin lesion of back L98.9 Active 43948663 Problem Familial hypercholesterolemia E78.0 Active 519728681 Problem Smoking F17.200 Active 52047396 Problem Gastroparesis K31.84 Active 138433372 Problem Other emphysema J43.8 Active 64096825 Problem Anxiety F41.9 Active 76522394 Problem Primary insomnia F51.01 Active 3130637 Problem Other insomnia G47.09 Active 490978941 Problem Menopausal hot flushes N95.1 Active 798168550 Problem Chronic obstructive pulmonary disease, unspecified COPD type J44.9 Active 34108523 Problem Dyspnea on exertion R06.09 Active 25850546 Problem Family history of cardiovascular disease Z82.49 Active 544824812 Problem Borderline abnormal thyroid function test R94.6 Active 686137498 Problem History of thyroidectomy E89.0 Active 988709384 Problem Atrial tachycardia I47.1 Active 778540621 Problem Essential hypertension I10 Active 29112290 Problem Thyroiditis E06.9 Active 08635137 Problem Vitamin D deficiency E55.9 Active 95590812 Problem Other and unspecified hyperlipidemia E78.5 Active 39165966 Problem Dyslipidemia E78.5 Active 924686307 Problem 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 09283339 Problem Insomnia, unspecified type G47.00 Active 467911742 Problem Elevated LFTs R79.89 Active 612601704 Problem Facial rash R21 Active 878014462 Problem Hypertension I10 Active 03648797 ALLERGIES Substance Reaction Event Type Date Status Promethazine VC/Codeine stomach upset Drug Allergy October, Active Fentanyl anaphylaxis Drug Allergy October, Active ENCOUNTERS Encounter Location Date Diagnosis [facility] [address] [place] [address] Dec, [facility] [address] [address] Dec, Primary insomnia F51.01 ; Anxiety F41.9 and Menopausal hot flushes N95.[address] [address] October, Dry mouth, unspecified R68.2 ; Pharyngitis, unspecified etiology J02.9 and Primary insomnia F51.01 [facility] [address] [place] [address] October, [facility] [address] [address] Sep, [facility] [address] [address] Sep, Hemoptysis R04.[address] [address] Sep, Primary insomnia F51.[address] [address] Sep, Adverse effect of drug, initial encounter T88.7XXA [address] [address] Aug, Adverse effect of drug, initial encounter T88.7XXA [address] [address] Aug, Primary insomnia F51.[address] [address] Jul, [facility] [address] [address] Jul, Primary insomnia F51.01 [facility] [address] [facility] [id number] [address] Jul, [address] [address] Jul, Atrial tachycardia I47.[address] [address] Jul, [address] [address] Jun, Flu-like symptoms R68.89 and Chronic obstructive pulmonary disease, unspecified COPD type J44.[address] [address] Jun, [address] [address] Jun, [address] [address] Jun, [address] [address] Jun, Epigastric pain R10.13 ; Diarrhea, unspecified type R19.7 and Non-intractable vomiting without nausea, unspecified vomiting type R11.11 [address] [address] 15 May, [address] [address] May, Chronic nonintractable headache, unspecified headache type R51 [address] [address] May, [address] [address] 04 May, 2017 Essential hypertension I10 ; Thyroiditis E06.9 and Nonintractable episodic headache, unspecified headache type R51 [address] [address] 18 Feb, 2017 Dyslipidemia E78.5 ; Vitamin D deficiency E55.9 and Atherosclerosis of left carotid artery I65.[address] [address] Jan, [place] [id number] [place] [address] Dec, [address] [address] 10 Dec, 2016 Atrial tachycardia I47.1 ; History of thyroidectomy E89.0 ; Primary insomnia F51.01 and Tobacco use Z72.[address] [address] October, Galactorrhea O92.[address] [address] October, [address] [address] October, [address] [address] October, [address] [address] October, Cough R05 and Other chest pain R07.[address] [address] Sep, Dysuria R30.0 ; Acute cystitis without hematuria N30.00 and Chest tightness or pressure R07.[address] [address] Sep, [address] [address] Sep, Acute bilateral low back pain without sciatica M54.[address] [address] Aug, Dermatitis L30.9 ; Other insomnia G47.09 and Anxiety F41.[address] [address] Aug, [address] [address] Aug, Hypertension I10 ; Dyslipidemia E78.5 and Vitamin D deficiency E55.[address] [address] Jun, Anxiety F41.9 and Hypertension I10 [facility] [address] [facility] [id number] [place] [address] Jun, [address] [address] Jun, Anxiety F41.9 and Hypertension I10 [address] [address] Jun, [address] [address] May, [address] [address] 05 May, 2016 Acute upper back pain M54.9 and Hypertension I10 [address] [address] 16 Apr, [address] [address] 10 Apr, 2016 Mid-back pain, acute M54.9 ; Dyslipidemia E78.5 and Hypertension I10 [address] [address] 04 Apr, [address] [address] Apr, [address] [address] Feb, Familial hypercholesterolemia E78.0 ; Occlusion and stenosis of left carotid artery I65.22 and Vitamin D deficiency E55.[address] [address] Feb, [address] [address] Feb, Fever, unspecified fever cause R50.9 and Acute non-recurrent maxillary sinusitis J01.[address] [address] Jan, [address] [address] Jan, [address] [address] Jan, Nodule of neck R22.1 and Night sweats R61 [address] [address] Dec, [address] [address] Dec, [address] [address] Nov, [address] [address] Nov, [address] [address] October, Acute upper respiratory infection, unspecified J06.9 ; Other viral agents as the cause of diseases classified elsewhere B97.89 and Calculus of gallbladder without cholecystitis without obstruction K80.[address] [address] Sep, Insomnia, unspecified type G47.00 ; Hypertension I10 and Elevated LFTs R79.[address] [address] Sep, Bleeding after intercourse N93.0 and Dysuria R30.[address] [address] Aug, Dysuria R30.0 and Pyuria N39.[address] [address] Aug, Hypertension I10 ; Insomnia, unspecified type G47.00 and 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 [address] 12 Jul, 2015 Pain of upper extremity M79.603 ; Hypertension I10 and Pure hypercholesterolemia E78.[address] [address] 09 Jul, 2015 Physical exam, pre-employment Z02.1 ; Visit for TB skin test Z11.1 ; Facial rash R21 and 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 [address] 04 Jul, 2015 Other and unspecified hyperlipidemia E78.5 ; Borderline abnormal thyroid function test R94.6 and Vitamin D deficiency E55.[address] [address] Jun, 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 ; Dyslipidemia E78.5 ; Dyspnea on exertion R06.09 ; Family history of cardiovascular disease Z82.49 and Borderline abnormal thyroid function test R94.[address] [address] May, Other emphysema J43.8 ; Smoking F17.200 and Tobacco abuse counseling Z71.[address] [address] May, Cough R05 and Other emphysema J43.[address] [address] Apr, [address] [address] Apr, Skin lesion of back L98.9 and Skin lesion L98.[address] [address] Apr, Skin lesion of back L98.9 and Hot flashes N95.[address] [address] Mar, Bronchitis J40 [address] [address] Mar, Acute pharyngitis, unspecified J02.9 and Upper respiratory infection with cough and congestion J06.[address] [address] Mar, Bronchitis J40 ; Shortness of breath R06.02 ; Encounter for screening mammogram for breast cancer Z12.31 and Yeast infection B37.[address] [address] Jan, Other and unspecified hyperlipidemia 272.4 and Hypothyroidism 244.[address] [address] Dec, [address] [address] Nov, Diarrhea 787.91 and Nausea 787.[address] [address] October, Other and unspecified hyperlipidemia 272.[address] [address] October, Lumbago 724.2 [facility] [address] [place] [id number] [address] Sep, [facility] [address] [place] [id number] [address] Sep, [facility] [address] [place] [id number] [address] Aug, [facility] [address] [place] [address] Aug, [facility] [address] [place] [address] Jun, [facility] [place] [facility] [id number] [address] Jun, [facility] [place] [facility] [address] [address] May, [facility] [place] [facility] [id number] [address] May, [facility] [address] [place] [address] May, [facility] [address] [place] [address] Apr, [facility] [place] [facility] [address] [address] Apr, [facility] [address] [place] [address] Mar, [facility] [place] [facility] [address] [address] Mar, [facility] [address] [place] [address] Mar, [facility] [place] [facility] [id number] [address] Mar, [facility] [place] [facility] [address] [address] Mar, [facility] [address] [place] [address] Mar, [facility] [address] [place] [address] Feb, [facility] [place] [facility] [id number] [address] Feb, [facility] [address] [place] [address] Jan, [facility] [place] [facility] [address] [facility] [id number] [place] [address] Jan, [facility] [place] [facility] [address] [facility] [id number] [place] [address] Jan, [facility] [place] [facility] [address] [facility] [address] [id number] [place] [address] Jan, [facility] [address] [facility] [place] [address] Jan, [facility] [place] [facility] [address] [facility] [id number] [place] [address] Jan, [facility] [address] [place] [address] Dec, [facility] [place] [facility] [id number] [place] [address] Dec, [facility] [place] [facility] [id number] [place] [address] Dec, [facility] [place] [facility] [id number] [place] [address] Dec, [facility] [address] [place] [address] Dec, [facility] [address] [place] [address] Dec, [facility] [place] [facility] [id number] [place] [address] Dec, [facility] [address] [place] [address] October, [facility] [place] [facility] [address] [facility] [id number] [place] [address] October, [facility] [place] [facility] [id number] [place] [address] October, [facility] [address] [place] [address] Sep, [facility] [place] [facility] [id number] [place] [address] Sep, [facility] [address] [place] [address] Sep, [facility] [id number] [address] Sep, [facility] [address] [address] Aug, [facility] [address] [place] [address] Aug, [facility] [address] [address] Jun, [facility] [id number] [place] [address] Jun, [address] [address] Jun, [address] [address] May, [facility] [address] [address] May, [facility] [address] [address] May, [address] [address] May, [address] [address] Apr, [facility] [id number] [address] Apr, [facility] [id number] [address] Feb, [address] [address] Feb, IMMUNIZATIONS No Known Immunizations SOCIAL HISTORY Never Assessed REASON FOR VISIT neck swollen, and hoarse f/u. KimberlyN PLAN OF CARE Activity Details Follow Up 4 Weeks, prn Reason: VITAL SIGNS Height 65 in 2017-10-29 Weight 145.6 lbs 2017-10-29 Temperature 98.1 degrees Fahrenheit 2017-10-29 Heart Rate 80 bpm 2017-10-29 Respiratory Rate 16 2017-10-29 BMI 24.23 kg/m2 2017-10-29 Blood pressure systolic 130 mmHg 2017-10-29 Blood pressure diastolic 84 mmHg 2017-10-29 MEDICATIONS Medication Instructions Dosage Frequency Start Date End Date Duration Status Losartan Potassium 50 MG Orally Once a day 1 tablet 24h Active Verapamil HCl ER 180 MG Orally Once a day 1 tablet 24h Active Fish Oil 1000 MG Orally Once a day 1 capsule 24h Active pantoprazole 40 mg take 1 tablet (40 mg) by oral route 2 times per day Mar, Active Aspirin 81 mg take 1 tablet (81 mg) by oral route once daily Mar, Active Spiriva Respimat 2.5 MCG/ACT INHALE 2 PUFFS DAILY 30 Active Zetia 10 mg take 1 tablet (10 mg) by oral route once daily Jun, Active Crestor 10 MG Orally Once a day 1 tablet 24h Active D3-50 42036 UNIT Active RESULTS No Results PROCEDURES No Known [...]
--- OUTSIDE RECORDS SUMMARY | 2019-04-01 10:46 | XMS REPORT ---
Author Author ASHELY OTT [facility] [address] Address [address] [place] [address] Care Team Providers Care Computer Aide Name Role Phone ASHELY OTT Unavailable PROBLEMS Type Condition ICD9-CM Code [id number] Code Onset Dates Condition Status SNOMED Code Problem Hot flashes N95.1 Active 512676834 Problem Skin lesion of back L98.9 Active 44666153 Problem Familial hypercholesterolemia E78.0 Active 572483626 Problem Smoking F17.200 Active 18674244 Problem Gastroparesis K31.84 Active 853687482 Problem Other emphysema J43.8 Active 03898515 Problem Anxiety F41.9 Active 16422221 Problem Primary insomnia F51.01 Active 5518956 Problem Other insomnia G47.09 Active 706426633 Problem Menopausal hot flushes N95.1 Active 445692571 Problem Chronic obstructive pulmonary disease, unspecified COPD type J44.9 Active 83386537 Problem Dyspnea on exertion R06.09 Active 18684616 Problem Family history of cardiovascular disease Z82.49 Active 442202543 Problem Borderline abnormal thyroid function test R94.6 Active 049930048 Problem History of thyroidectomy E89.0 Active 487275382 Problem Atrial tachycardia I47.1 Active 168001707 Problem Essential hypertension I10 Active 36369276 Problem Thyroiditis E06.9 Active 75629438 Problem Vitamin D deficiency E55.9 Active 07552944 Problem Other and unspecified hyperlipidemia E78.5 Active 55367823 Problem Dyslipidemia E78.5 Active 630551848 Problem 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 06856908 Problem Insomnia, unspecified type G47.00 Active 294444314 Problem Elevated LFTs R79.89 Active 803314626 Problem Facial rash R21 Active 545862132 Problem Hypertension I10 Active 44784863 ALLERGIES No Information ENCOUNTERS Encounter Location Date Diagnosis [facility] [place] [address] [place] [address] Dec, [facility] [place] [address] [place] [address] Dec, Primary insomnia F51.01 ; Anxiety F41.9 and Menopausal hot flushes N95.[address] [address] October, Dry mouth, unspecified R68.2 ; Pharyngitis, unspecified etiology J02.9 and Primary insomnia F51.[address] [address] October, [facility] [address] [address] Sep, [address] [address] Sep, Hemoptysis R04.[address] [address] Sep, Primary insomnia F51.[address] [address] Sep, Adverse effect of drug, initial encounter T88.7XXA [address] [address] Aug, Adverse effect of drug, initial encounter T88.7XXA [address] [address] Aug, Primary insomnia F51.[address] [address] Jul, [address] [address] Jul, Primary insomnia F51.01 [facility] [address] [facility] [id number] [address] Jul, [address] [address] Jul, Atrial tachycardia I47.[address] [address] Jul, [address] [address] Jun, Flu-like symptoms R68.89 and Chronic obstructive pulmonary disease, unspecified COPD type J44.[address] [address] Jun, [facility] [address] [place] [address] Jun, [address] [address] Jun, [address] [address] Jun, Epigastric pain R10.13 ; Diarrhea, unspecified type R19.7 and Non-intractable vomiting without nausea, unspecified vomiting type R11.11 [facility] [address] [address] May, [address] [address] May, Chronic nonintractable headache, unspecified headache type R51 [address] [address] May, [address] [address] May, Essential hypertension I10 ; Thyroiditis E06.9 and Nonintractable episodic headache, unspecified headache type R51 [address] [address] Feb, Dyslipidemia E78.5 ; Vitamin D deficiency E55.9 and Atherosclerosis of left carotid artery I65.[address] [address] Jan, [facility] [address] [address] Dec, [address] [address] Dec, Atrial tachycardia I47.1 ; History of thyroidectomy E89.0 ; Primary insomnia F51.01 and Tobacco use Z72.[address] [address] October, Galactorrhea O92.[address] [address] October, [address] [address] October, [address] [address] October, [facility] [place] [address] [place] [address] October, Cough R05 and Other chest pain R07.89 [facility] [place] [address] [place] [address] Sep, Dysuria R30.0 ; Acute cystitis without hematuria N30.00 and Chest tightness or pressure R07.89 [facility] [place] [address] [place] [address] Sep, [facility] [place] [address] [place] [address] Sep, Acute bilateral low back pain without sciatica M54.5 [facility] [place] [address] [place] [address] Aug, Dermatitis L30.9 ; Other insomnia G47.09 and Anxiety F41.9 [facility] [address] [address] Aug, [facility] [place] [address] [place] [address] Aug, Hypertension I10 ; Dyslipidemia E78.5 and Vitamin D deficiency E55.9 [facility] [address] [address] Jun, Anxiety F41.9 and Hypertension I10 [facility] [address] [facility] [id number] [place] [address] Jun, [facility] [address] [address] Jun, Anxiety F41.9 and Hypertension I10 [facility] [place] [address] [place] [address] Jun, [facility] [place] [address] [place] [address] May, [facility] [place] [address] [place] [address] May, Acute upper back pain M54.9 and Hypertension I10 [facility] [address] [place] [address] Apr, [facility] [place] [address] [place] [address] Apr, Mid-back pain, acute M54.9 ; Dyslipidemia E78.5 and Hypertension I10 [facility] [place] [address] [place] [address] Apr, [facility] [address] [address] Apr, [address] [address] Feb, Familial hypercholesterolemia E78.0 ; Occlusion and stenosis of left carotid artery I65.22 and Vitamin D deficiency E55.[address] [address] Feb, [address] [address] Feb, Fever, unspecified fever cause R50.9 and Acute non-recurrent maxillary sinusitis J01.[address] [address] Jan, [address] [address] Jan, [address] [address] Jan, Nodule of neck R22.1 and Night sweats R61 [address] [address] Dec, [address] [address] Dec, [address] [address] Nov, [address] [address] Nov, [address] [address] October, Acute upper respiratory infection, unspecified J06.9 ; Other viral agents as the cause of diseases classified elsewhere B97.89 and Calculus of gallbladder without cholecystitis without obstruction K80.[address] [address] Sep, Insomnia, unspecified type G47.00 ; Hypertension I10 and Elevated LFTs R79.[address] [address] Sep, Bleeding after intercourse N93.0 and Dysuria R30.[address] [address] Aug, Dysuria R30.0 and Pyuria N39.[address] [address] Aug, Hypertension I10 ; Insomnia, unspecified type G47.00 and 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 [address] 12 Jul, 2015 Pain of upper extremity M79.603 ; Hypertension I10 and Pure hypercholesterolemia E78.[address] [address] 09 Jul, 2015 Physical exam, pre- employment Z02.1 ; Visit for TB skin test Z11.1 ; Facial rash R21 and 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 [address] 04 Jul, 2015 Other and unspecified hyperlipidemia E78.5 ; Vitamin D deficiency E55.9 and Borderline abnormal thyroid function test R94.[address] [address] Jun, 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 ; Dyslipidemia E78.5 ; Dyspnea on exertion R06.09 ; Family history of cardiovascular disease Z82.49 and Borderline abnormal thyroid function test R94.[address] [address] May, Other emphysema J43.8 ; Smoking F17.200 and Tobacco abuse counseling Z71.[address] [address] May, Cough R05 and Other emphysema J43.[address] [address] Apr, [address] [address] Apr, Skin lesion of back L98.9 and Skin lesion L98.[address] [address] Apr, Skin lesion of back L98.9 and Hot flashes N95.[address] [address] Mar, Bronchitis J40 [address] [address] Mar, Acute pharyngitis, unspecified J02.9 and Upper respiratory infection with cough and congestion J06.[address] [address] Mar, Bronchitis J40 ; Shortness of breath R06.02 ; Encounter for screening mammogram for breast cancer Z12.31 and Yeast infection B37.[address] [address] Jan, Other and unspecified hyperlipidemia 272.4 and Hypothyroidism 244.[address] [address] Dec, [address] [address] Nov, Diarrhea 787.91 and Nausea 787.[address] [address] October, Other and unspecified hyperlipidemia 272.[address] [address] October, Lumbago 724.2 [facility] [address] [place] [id number] [place] [address] Sep, [facility] [address] [address] Sep, [facility] [address] [place] [address] [id number] [place] [address] Aug, [address] [address] Aug, [address] [address] Jun, [facility] [address] [place] [address] [id number] [place] [address] Jun, [facility] [address] [address] May, [facility] [address] [address] May, [address] [address] May, [facility] [place] [address] [place] [address] Apr, [facility] [place] [facility] [id number] [address] Apr, [facility] [place] [address] [place] [address] Mar, [facility] [place] [facility] [id number] [place] [address] Mar, [facility] [place] [address] [place] [address] Mar, [facility] [place] [facility] [id number] [place] [address] Mar, [facility] [place] [facility] [id number] [place] [address] Mar, [facility] [place] [address] [place] [address] Mar, [facility] [place] [address] [place] [address] Feb, [facility] [place] [facility] [id number] [address] Feb, [facility] [place] [address] [place] [address] Jan, [facility] [place] [facility] [id number] [address] Jan, [facility] [place] [facility] [id number] [address] Jan, [facility] [place] [facility] [id number] [address] Jan, [facility] [place] [address] [place] [address] Jan, [facility] [place] [facility] [id number] [address] Jan, [facility] [place] [address] [place] [address] Dec, [facility] [place] [facility] [id number] [address] Dec, [facility] [place] [facility] [address] [id number] [place] [address] Dec, [facility] [place] [facility] [address] [id number] [place] [address] Dec, [facility] [place] [address] [place] [address] Dec, [facility] [place] [address] [place] [address] Dec, [facility] [place] [facility] [address] [facility] [id number] [place] [address] Dec, [facility] [place] [address] [place] [address] October, [facility] [place] [facility] [address] [facility] [id number] [place] [address] October, [facility] [place] [facility] [address] [facility] [id number] [place] [address] October, [facility] [place] [address] [place] [address] Sep, [facility] [place] [facility] [address] [facility] [id number] [place] [address] Sep, [facility] [place] [address] [place] [address] Sep, [facility] [place] [facility] [address] [facility] [id number] [place] [address] Sep, [facility] [place] [facility] [address] [facility] [id number] [place] [address] Aug, [facility] [place] [address] [facility] [address] Aug, [facility] [place] [facility] [address] [id number] [place] [address] Jun, [facility] [place] [facility] [address] [facility] [id number] [place] [address] Jun, [facility] [place] [address] [facility] [place] [address] Jun, [facility] [place] [address] [facility] [place] [address] May, [facility] [address] [facility] [id number] [address] May, [facility] [id number] [address] May, [facility] [address] [place] [address] May, [facility] [address] [place] [address] Apr, [facility] [id number] [address] Apr, [facility] [id number] [address] Feb, [facility] [address] [place] [address] Feb, IMMUNIZATIONS No Known Immunizations SOCIAL HISTORY Never Assessed REASON FOR VISIT Requests return call PLAN OF CARE VITAL SIGNS MEDICATIONS Unknown [...]
--- OUTSIDE RECORDS SUMMARY | 2019-04-01 10:46 | XMS REPORT ---
Author Author ASHELY OTT Organization [facility] [address] Address [address] [place] [address] Care Team Providers Care Pharmacist Assistant Name Role Phone ASHELY OTT Unavailable PROBLEMS Type Condition ICD9-CM Code YWJ21-KG Code Onset Dates Condition Status SNOMED Code Problem Hot flashes N95.1 Active 403047495 Problem Skin lesion of back L98.9 Active 45121159 Problem Familial hypercholesterolemia E78.0 Active 958351475 Problem Smoking F17.200 Active 80661097 Problem Gastroparesis K31.84 Active 642536095 Problem Other emphysema J43.8 Active 88989181 Problem Anxiety F41.9 Active 26960859 Problem Primary insomnia F51.01 Active 0438174 Problem Other insomnia G47.09 Active 665577199 Problem Menopausal hot flushes N95.1 Active 562153105 Problem Chronic obstructive pulmonary disease, unspecified COPD type J44.9 Active 83696290 Problem Dyspnea on exertion R06.09 Active 82318052 Problem Family history of cardiovascular disease Z82.49 Active 571748886 Problem Borderline abnormal thyroid function test R94.6 Active 436901071 Problem History of thyroidectomy E89.0 Active 792876395 Problem Atrial tachycardia I47.1 Active 647661087 Problem Essential hypertension I10 Active 72993508 Problem Thyroiditis E06.9 Active 33435407 Problem Vitamin D deficiency E55.9 Active 51521938 Problem Other and unspecified hyperlipidemia E78.5 Active 42396886 Problem Dyslipidemia E78.5 Active 412192623 Problem 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 02219839 Problem Insomnia, unspecified type G47.00 Active 103389562 Problem Elevated LFTs R79.89 Active 751347283 Problem Facial rash R21 Active 530687982 Problem Hypertension I10 Active 48048925 ALLERGIES Substance Reaction Event Type Date Status Promethazine VC/Codeine stomach upset Drug Allergy Sep, Active Fentanyl anaphylaxis Drug Allergy Sep, Active ENCOUNTERS Encounter Location Date Diagnosis [facility] [address] [place] [address] Dec, [facility] [address] [address] Dec, Primary insomnia F51.01 ; Anxiety F41.9 and Menopausal hot flushes N95.1 [facility] [address] [address] October, Dry mouth, unspecified R68.2 ; Pharyngitis, unspecified etiology J02.9 and Primary insomnia F51.01 [facility] [address] [address] October, [facility] [address] [address] Sep, [facility] [address] [address] Sep, Hemoptysis R04.2 [facility] [address] [address] Sep, Primary insomnia F51.01 [facility] [address] [address] Sep, Adverse effect of drug, initial encounter T88.7XXA [facility] [address] [address] Aug, Adverse effect of drug, initial encounter T88.7XXA [facility] [address] [address] Aug, Primary insomnia F51.01 [facility] [address] [address] Jul, [facility] [address] [address] Jul, Primary insomnia F51.01 [facility] [address] [facility] [id number] [address] Jul, [facility] [address] [address] Jul, Atrial tachycardia I47.1 [facility] [address] [address] Jul, [facility] [address] [address] Jun, Flu-like symptoms R68.89 and Chronic obstructive pulmonary disease, unspecified COPD type J44.[address] [address] Jun, [address] [address] Jun, [address] [address] Jun, [address] [address] Jun, Epigastric pain R10.13 ; Diarrhea, unspecified type R19.7 and Non-intractable vomiting without nausea, unspecified vomiting type R11.11 [place] [address] [place] [address] May, [address] [address] May, Chronic nonintractable headache, unspecified headache type R51 [address] [address] May, [address] [address] May, Essential hypertension I10 ; Thyroiditis E06.9 and Nonintractable episodic headache, unspecified headache type R51 [address] [address] Feb, Dyslipidemia E78.5 ; Vitamin D deficiency E55.9 and Atherosclerosis of left carotid artery I65.[address] [address] Jan, [facility] [address] [place] [address] Dec, [address] [address] Dec, Atrial tachycardia I47.1 ; History of thyroidectomy E89.0 ; Primary insomnia F51.01 and Tobacco use Z72.[address] [address] October, Galactorrhea O92.[address] [address] October, [address] [address] October, [facility] [place] [address] [place] [address] October, [facility] [place] [address] [place] [address] October, Cough R05 and Other chest pain R07.89 [facility] [place] [address] [place] [address] Sep, Dysuria R30.0 ; Acute cystitis without hematuria N30.00 and Chest tightness or pressure R07.89 [facility] [place] [address] [place] [address] Sep, [facility] [place] [address] [place] [address] Sep, Acute bilateral low back pain without sciatica M54.5 [facility] [place] [address] [place] [address] Aug, Dermatitis L30.9 ; Other insomnia G47.09 and Anxiety F41.9 [facility] [address] [address] Aug, [facility] [address] [address] Aug, Hypertension I10 ; Dyslipidemia E78.5 and Vitamin D deficiency E55.9 [facility] [address] [address] Jun, Anxiety F41.9 and Hypertension I10 [facility] [address] [facility] [id number] [place] [address] Jun, [facility] [place] [address] [place] [address] Jun, Anxiety F41.9 and Hypertension I10 [facility] [place] [address] [place] [address] Jun, [facility] [place] [address] [place] [address] May, [facility] [address] [address] May, Acute upper back pain M54.9 and Hypertension I10 [facility] [place] [address] [place] [address] Apr, [facility] [address] [address] Apr, Mid-back pain, acute M54.9 ; Dyslipidemia E78.5 and Hypertension I10 [address] [address] Apr, [address] [address] Apr, [address] [address] Feb, Familial hypercholesterolemia E78.0 ; Occlusion and stenosis of left carotid artery I65.22 and Vitamin D deficiency E55.[address] [address] Feb, [address] [address] Feb, Fever, unspecified fever cause R50.9 and Acute non-recurrent maxillary sinusitis J01.[address] [address] Jan, [address] [address] Jan, [address] [address] Jan, Nodule of neck R22.1 and Night sweats R61 [address] [address] Dec, [address] [address] Dec, [address] [address] Nov, [address] [address] Nov, [address] [address] October, Acute upper respiratory infection, unspecified J06.9 ; Other viral agents as the cause of diseases classified elsewhere B97.89 and Calculus of gallbladder without cholecystitis without obstruction K80.[address] [address] Sep, Insomnia, unspecified type G47.00 ; Hypertension I10 and Elevated LFTs R79.[address] [address] 11 Sep, 2015 Bleeding after intercourse N93.0 and Dysuria R30.[address] [address] 31 Aug, 2015 Dysuria R30.0 and Pyuria N39.[address] [address] Aug, Hypertension I10 ; Insomnia, unspecified type G47.00 and 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 [address] 12 Jul, 2015 Pain of upper extremity M79.603 ; Hypertension I10 and Pure hypercholesterolemia E78.[address] [address] 09 Jul, 2015 Physical exam, pre- employment Z02.1 ; Visit for TB skin test Z11.1 ; Facial rash R21 and 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 [address] 04 Jul, 2015 Other and unspecified hyperlipidemia E78.5 ; Vitamin D deficiency E55.9 and Borderline abnormal thyroid function test R94.[address] [address] Jun, 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 ; Dyslipidemia E78.5 ; Dyspnea on exertion R06.09 ; Family history of cardiovascular disease Z82.49 and Borderline abnormal thyroid function test R94.[address] [address] May, Other emphysema J43.8 ; Smoking F17.200 and Tobacco abuse counseling Z71.[address] [address] May, Cough R05 and Other emphysema J43.[address] [address] Apr, [address] [address] Apr, Skin lesion of back L98.9 and Skin lesion L98.[address] [address] Apr, Skin lesion of back L98.9 and Hot flashes N95.[address] [address] Mar, Bronchitis J40 [address] [address] 09 Mar, 2015 Acute pharyngitis, unspecified J02.9 and Upper respiratory infection with cough and congestion J06.[address] [address] Mar, Bronchitis J40 ; Shortness of breath R06.02 ; Encounter for screening mammogram for breast cancer Z12.31 and Yeast infection B37.[address] [address] Jan, Other and unspecified hyperlipidemia 272.4 and Hypothyroidism 244.[address] [address] Dec, [address] [address] Nov, Diarrhea 787.91 and Nausea 787.[address] [address] October, Other and unspecified hyperlipidemia 272.[address] [address] October, Lumbago 724.2 [facility] [address] [address] Sep, [facility] [address] [address] Sep, [facility] [address] [address] Aug, [address] [address] Aug, [address] [address] Jun, [facility] [address] [address] Jun, [facility] [address] [address] May, [facility] [address] [address] May, [facility] [place] [address] [place] [address] May, [facility] [place] [address] [place] [address] Apr, [facility] [place] [facility] [address] [id number] [address] Apr, [facility] [place] [address] [place] [address] Mar, [facility] [place] [facility] [address] [facility] [id number] [address] Mar, [facility] [place] [address] [place] [address] Mar, [facility] [place] [facility] [address] [place] [address] Mar, [facility] [place] [facility] [address] [id number] [address] Mar, [facility] [place] [address] [place] [address] Mar, [facility] [place] [address] [place] [address] Feb, [facility] [place] [facility] [address] [place] [id number] [place] [address] Feb, [facility] [place] [address] [place] [address] Jan, [facility] [place] [facility] [address] [id number] [address] Jan, [facility] [place] [facility] [address] [place] [id number] [address] Jan, [facility] [place] [facility] [address] [id number], [place] [address] Jan, [facility] [place] [address] [place] [address] Jan, [facility] [place] [facility] [address] [id number] [address] Jan, [facility] [place] [address] [facility] [address] Dec, [facility] [address] [id number] [place] [address] Dec, [facility] [place] [facility] [address] [id number] [place] [address] Dec, [facility] [place] [facility] [address] [facility] [id number] [place] [address] Dec, [facility] [place] [address] [place] [address] Dec, [facility] [place] [address] [place] [address] Dec, [facility] [place] [facility] [address] [facility] [id number] [place] [address] Dec, [facility] [place] [address] [place] [address] October, [facility] [place] [facility] [address] [facility] [id number] [place] [address] October, [facility] [place] [facility] [address] [facility] [id number] [place] [address] October, [facility] [place] [address] [place] [address] Sep, [facility] [place] [facility] [address] [facility] [id number] [place] [address] Sep, [facility] [place] [address] [place] [address] Sep, [facility] [place] [facility] [address] [facility] [id number] [place] [address] Sep, [facility] [place] [facility] [address] [facility] [id number] [place] [address] Aug, [facility] [place] [address] [place] [address] Aug, [facility] [place] [facility] [address] [facility] [id number] [place] [address] Jun, [facility] [place] [facility] [address] [facility] [id number] [place] [address] Jun, [facility] [place] [address] [place] [address] Jun, [facility] [address] [place] [address] May, [facility] [address] [id number], [place] [address] May, [facility] [address] [id number], [place] [address] May, [facility] [address] [place] [address] May, [facility] [address] [place] [address] Apr, [facility] [address] [place] [address] Apr, [facility] [address], [place] [address] Feb, [facility] [address] [place] [address] Feb, IMMUNIZATIONS No Known Immunizations SOCIAL HISTORY Never Assessed REASON FOR VISIT coughing up blood about a week. every once in awhile [facility] OF CARE Activity Details Follow Up 2 - 3 Days, prn Reason: VITAL SIGNS Height 65 in 2017-10-10 Weight 144.4 lbs 2017-10-10 Temperature 98.4 degrees Fahrenheit 2017-10-10 Heart Rate 80 bpm 2017-10-10 Respiratory Rate 18 2017-10-10 BMI 24.03 kg/m2 2017-10-10 Blood pressure systolic 128 mmHg 2017-10-10 Blood pressure diastolic 64 mmHg 2017-10-10 MEDICATIONS Medication Instructions Dosage Frequency Start Date End Date Duration Status Zithromax Z-Lamine 250 MG Orally Once a day 2 tablets on the first day, then 1 tablet daily for 4 days 24h Sep, Sep, 5 day(s) Active Verapamil HCl ER 180 MG Orally Once a day 1 tablet 24h Active Crestor 10 MG Orally Once a day 1 tablet 24h Active D3-50 90116 UNIT Active Tessalon Perles 100 mg Orally Three times a day 1 capsule as needed 8h Sep, Sep, 07 days Active Zofran ODT 4 MG Orally every 8 hrs 1 tablet on the tongue and allow to dissolve 8h 03 Angel, 2018 03 days Active Losartan Potassium 50 MG Orally Once a day 1 tablet 24h Active Fish Oil 1000 MG Orally Once a day 1 capsule 24h Active Aspirin 81 mg take 1 tablet (81 mg) by oral route once daily Mar, Active pantoprazole 40 mg take 1 tablet (40 mg) by oral route 2 times per day Mar, Active Ambien 10 mg Orally Once a day at bedtime PRN for sleep Take 1 tablet 28 days Active Zetia 10 mg take 1 tablet (10 mg) by oral route once daily Jun, Active PredniSONE 5 MG Orally Once a day 4 tabs daily x 4 days, 2 tabs daily x 4 days then 1 tab daily for 4 days 24h Aug, Active Spiriva Respimat 2.5 MCG/ACT INHALE 2 PUFFS DAILY 30 Active RESULTS No Results PROCEDURES Procedure Date Ordered Result Body Site X-RAY EXAM CHEST 2 VIEWS October 10, 2017 COMPLETE CBC W/AUTO DIFF WBC October 10, 2017 VENIPUNCT, ROUTINE* October 10, 2017 STREP A ASSAY W/OPTIC October 10, 2017 COMPREHEN METABOLIC PANEL October 10, 2017 MYCOPLASMA ANTIBODY October 10, 2017 HETEROPHILE ANTIBODIES October 10, 2017 INSTRUCTIONS MEDICATIONS ADMINISTERED No Known Medications MEDICAL [...]
--- OUTSIDE RECORDS SUMMARY | 2019-04-01 10:47 | XMS REPORT ---
Author Author ASHELY OTT [facility] [address] Address [address] [place] [address] Care Team Providers Care Instrument Designer Name Role Phone ASHELY OTT Unavailable PROBLEMS Type Condition ICD9-CM Code QTC20-TA Code Onset Dates Condition Status SNOMED Code Problem Hot flashes N95.1 Active 246295821 Problem Skin lesion of back L98.9 Active 38049072 Problem Familial hypercholesterolemia E78.0 Active 723057070 Problem Smoking F17.200 Active 77873997 Problem Gastroparesis K31.84 Active 453624660 Problem Other emphysema J43.8 Active 27608843 Problem Anxiety F41.9 Active 48101387 Problem Primary insomnia F51.01 Active 3555159 Problem Other insomnia G47.09 Active 702225604 Problem Menopausal hot flushes N95.1 Active 970233636 Problem Chronic obstructive pulmonary disease, unspecified COPD type J44.9 Active 29856003 Problem Dyspnea on exertion R06.09 Active 59900092 Problem Family history of cardiovascular disease Z82.49 Active 598179348 Problem Borderline abnormal thyroid function test R94.6 Active 077865677 Problem History of thyroidectomy E89.0 Active 402174876 Problem Atrial tachycardia I47.1 Active 856031694 Problem Essential hypertension I10 Active 17578044 Problem Thyroiditis E06.9 Active 76772464 Problem Vitamin D deficiency E55.9 Active 44459711 Problem Other and unspecified hyperlipidemia E78.5 Active 98305530 Problem Dyslipidemia E78.5 Active 498432175 Problem 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 51009456 Problem Insomnia, unspecified type G47.00 Active 681437150 Problem Elevated LFTs R79.89 Active 355775294 Problem Facial rash R21 Active 318647719 Problem Hypertension I10 Active 12785673 ALLERGIES No Information ENCOUNTERS Encounter Location Date Diagnosis [facility] [place] [address] [place] [address] Dec, [facility] [place] [address] [place] [address] Dec, Primary insomnia F51.01 ; Anxiety F41.9 and Menopausal hot flushes N95.[address] [address] October, Dry mouth, unspecified R68.2 ; Pharyngitis, unspecified etiology J02.9 and Primary insomnia F51.[address] [address] October, [facility] [address] [address] Sep, [address] [address] Sep, Hemoptysis R04.[address] [address] Sep, Primary insomnia F51.[address] [address] Sep, Adverse effect of drug, initial encounter T88.7XXA [address] [address] Aug, Adverse effect of drug, initial encounter T88.7XXA [address] [address] Aug, Primary insomnia F51.[address] [address] Jul, [address] [address] Jul, Primary insomnia F51.01 [facility] [address] [facility] [id number] [address] Jul, [address] [address] Jul, Atrial tachycardia I47.[address] [address] Jul, [address] [address] Jun, Flu-like symptoms R68.89 and Chronic obstructive pulmonary disease, unspecified COPD type J44.[address] [address] Jun, [facility] [address] [place] [address] Jun, [address] [address] Jun, [address] [address] Jun, Epigastric pain R10.13 ; Diarrhea, unspecified type R19.7 and Non-intractable vomiting without nausea, unspecified vomiting type R11.11 [facility] [address] [address] May, [address] [address] May, Chronic nonintractable headache, unspecified headache type R51 [address] [address] May, [address] [address] May, Essential hypertension I10 ; Thyroiditis E06.9 and Nonintractable episodic headache, unspecified headache type R51 [address] [address] Feb, Dyslipidemia E78.5 ; Vitamin D deficiency E55.9 and Atherosclerosis of left carotid artery I65.[address] [address] Jan, [facility] [address] [address] Dec, [address] [address] Dec, Atrial tachycardia I47.1 ; History of thyroidectomy E89.0 ; Primary insomnia F51.01 and Tobacco use Z72.[address] [address] October, Galactorrhea O92.[address] [address] October, [address] [address] October, [address] [address] October, [facility] [place] [address] [place] [address] October, Cough R05 and Other chest pain R07.89 [facility] [place] [address] [place] [address] Sep, Dysuria R30.0 ; Acute cystitis without hematuria N30.00 and Chest tightness or pressure R07.89 [facility] [place] [address] [place] [address] Sep, [facility] [place] [address] [place] [address] Sep, Acute bilateral low back pain without sciatica M54.5 [facility] [place] [address] [place] [address] Aug, Dermatitis L30.9 ; Other insomnia G47.09 and Anxiety F41.9 [facility] [address] [address] Aug, [facility] [place] [address] [place] [address] Aug, Hypertension I10 ; Dyslipidemia E78.5 and Vitamin D deficiency E55.9 [facility] [address] [address] Jun, Anxiety F41.9 and Hypertension I10 [facility] [address] [facility] [id number] [place] [address] Jun, [facility] [address] [address] Jun, Anxiety F41.9 and Hypertension I10 [facility] [place] [address] [place] [address] Jun, [facility] [place] [address] [place] [address] May, [facility] [place] [address] [place] [address] May, Acute upper back pain M54.9 and Hypertension I10 [facility] [place] [address] [place] [address] Apr, [facility] [place] [address] [place] [address] Apr, Mid-back pain, acute M54.9 ; Dyslipidemia E78.5 and Hypertension I10 [facility] [place] [address] [place] [address] Apr, [facility] [address] [address] Apr, [address] [address] Feb, Familial hypercholesterolemia E78.0 ; Occlusion and stenosis of left carotid artery I65.22 and Vitamin D deficiency E55.[address] [address] Feb, [address] [address] Feb, Fever, unspecified fever cause R50.9 and Acute non-recurrent maxillary sinusitis J01.[address] [address] Jan, [address] [address] Jan, [address] [address] Jan, Nodule of neck R22.1 and Night sweats R61 [address] [address] Dec, [address] [address] Dec, [address] [address] Nov, [address] [address] Nov, [address] [address] October, Acute upper respiratory infection, unspecified J06.9 ; Other viral agents as the cause of diseases classified elsewhere B97.89 and Calculus of gallbladder without cholecystitis without obstruction K80.[address] [address] Sep, Insomnia, unspecified type G47.00 ; Hypertension I10 and Elevated LFTs R79.[address] [address] Sep, Bleeding after intercourse N93.0 and Dysuria R30.[address] [address] Aug, Dysuria R30.0 and Pyuria N39.[address] [address] Aug, Hypertension I10 ; Insomnia, unspecified type G47.00 and 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 [address] 12 Jul, 2015 Pain of upper extremity M79.603 ; Hypertension I10 and Pure hypercholesterolemia E78.[address] [address] 09 Jul, 2015 Physical exam, pre- employment Z02.1 ; Visit for TB skin test Z11.1 ; Facial rash R21 and 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 [address] 04 Jul, 2015 Other and unspecified hyperlipidemia E78.5 ; Borderline abnormal thyroid function test R94.6 and Vitamin D deficiency E55.[address] [address] Jun, 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 ; Dyslipidemia E78.5 ; Dyspnea on exertion R06.09 ; Family history of cardiovascular disease Z82.49 and Borderline abnormal thyroid function test R94.[address] [address] May, Other emphysema J43.8 ; Smoking F17.200 and Tobacco abuse counseling Z71.[address] [address] May, Cough R05 and Other emphysema J43.[address] [address] Apr, [address] [address] Apr, Skin lesion of back L98.9 and Skin lesion L98.[address] [address] Apr, Skin lesion of back L98.9 and Hot flashes N95.[address] [address] Mar, Bronchitis J40 [address] [address] Mar, Acute pharyngitis, unspecified J02.9 and Upper respiratory infection with cough and congestion J06.[address] [address] Mar, Bronchitis J40 ; Shortness of breath R06.02 ; Encounter for screening mammogram for breast cancer Z12.31 and Yeast infection B37.[address] [address] Jan, Other and unspecified hyperlipidemia 272.4 and Hypothyroidism 244.[address] [address] Dec, [address] [address] Nov, Diarrhea 787.91 and Nausea 787.[address] [address] October, Other and unspecified hyperlipidemia 272.[address] [address] October, Lumbago 724.2 [facility] [id number] [place] [address] Sep, [facility] [address] [address] Sep, [facility] [id number] [place] [address] Aug, [address] [address] Aug, [address] [address] Jun, [facility] [id number] [place] [address] Jun, [facility] [address] [address] May, [facility] [address] [address] May, [address] [address] May, [facility] [place] [address] [place] [address] Apr, [facility] [place] [facility] [address] [id number] [address] Apr, [facility] [place] [address] [place] [address] Mar, [facility] [place] [facility] [id number] [place] [address] Mar, [facility] [place] [address] [place] [address] Mar, [facility] [place] [facility] [id number] [place] [address] Mar, [facility] [place] [facility] [id number] [place] [address] Mar, [facility] [place] [address] [place] [address] Mar, [facility] [place] [address] [place] [address] Feb, [facility] [place] [facility] [id number] [address] Feb, [facility] [place] [address] [place] [address] Jan, [facility] [place] [facility] [id number] [address] Jan, [facility] [place] [facility] [id number] [address] Jan, [facility] [place] [facility] [id number] [address] Jan, [facility] [place] [address] [place] [address] Jan, [facility] [place] [facility] [id number] [address] Jan, [facility] [place] [address] [place] [address] Dec, [facility] [place] [facility] [id number] [address] Dec, [facility] [place] [facility] [address] [id number] [place] [address] Dec, [facility] [place] [facility] [address] [id number] [place] [address] Dec, [facility] [place] [address] [place] [address] Dec, [facility] [place] [address] [place] [address] Dec, [facility] [place] [facility] [address] [facility] [id number] [place] [address] Dec, [facility] [place] [address] [place] [address] October, [facility] [place] [facility] [address] [facility] [id number] [place] [address] October, [facility] [place] [facility] [address] [facility] [id number] [place] [address] October, [facility] [place] [address] [place] [address] Sep, [facility] [place] [facility] [address] [facility] [id number] [place] [address] Sep, [facility] [place] [address] [place] [address] Sep, [facility] [place] [facility] [address] [facility] [id number] [place] [address] Sep, [facility] [place] [facility] [address] [facility] [id number] [place] [address] Aug, [facility] [place] [address] [place] [address] Aug, [facility] [place] [facility] [address] [id number] [place] [address] Jun, [facility] [place] [facility] [address] [facility] [id number] [place] [address] Jun, [facility] [place] [address] [place] [address] Jun, [facility] [place] [address] [place] [address] May, [facility] [address] [facility] [id number], [place] [address] May, [facility] [address] [id number] [address] May, [facility] [address] [place] [address] May, [facility] [address] [place] [address] Apr, [facility] [id number] [address] Apr, [facility] [id number], [place] [address] Feb, [facility] [address] [place] [address] Feb, IMMUNIZATIONS No Known Immunizations SOCIAL HISTORY Never Assessed REASON FOR VISIT Requests return call PLAN OF CARE VITAL SIGNS MEDICATIONS Medication Instructions Dosage Frequency Start Date End Date Duration Status Amoxicillin 500 mg Orally every 8 hrs 1 capsule 8h Sep, October, 07 days Active RESULTS No Results PROCEDURES No [...]
--- OUTSIDE RECORDS SUMMARY | 2019-04-01 10:47 | XMS REPORT ---
Author Author KEVIN BEJARANO Organization [facility] [address] Address [address] [place] [address] Care Team Providers Care Chuck Tender Name Role Phone KEVIN BEJARANO Unavailable PROBLEMS Type Condition ICD9-CM Code PMH27-NG Code Onset Dates Condition Status SNOMED Code Problem Hot flashes N95.1 Active 545083264 Problem Skin lesion of back L98.9 Active 70916096 Problem Familial hypercholesterolemia E78.0 Active 912316090 Problem Smoking F17.200 Active 96304365 Problem Gastroparesis K31.84 Active 879863351 Problem Other emphysema J43.8 Active 84174756 Problem Anxiety F41.9 Active 56907137 Problem Primary insomnia F51.01 Active 9379806 Problem Other insomnia G47.09 Active 316162471 Problem Menopausal hot flushes N95.1 Active 126488314 Problem Chronic obstructive pulmonary disease, unspecified COPD type J44.9 Active 84694115 Problem Dyspnea on exertion R06.09 Active 41007550 Problem Family history of cardiovascular disease Z82.49 Active 674977114 Problem Borderline abnormal thyroid function test R94.6 Active 042771376 Problem History of thyroidectomy E89.0 Active 810545394 Problem Atrial tachycardia I47.1 Active 509241023 Problem Essential hypertension I10 Active 28032370 Problem Thyroiditis E06.9 Active 44807576 Problem Vitamin D deficiency E55.9 Active 96752817 Problem Other and unspecified hyperlipidemia E78.5 Active 69114630 Problem Dyslipidemia E78.5 Active 362214894 Problem 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 56877201 Problem Insomnia, unspecified type G47.00 Active 491726625 Problem Elevated LFTs R79.89 Active 377385854 Problem Facial rash R21 Active 820667689 Problem Hypertension I10 Active 20007273 ALLERGIES No Information ENCOUNTERS Encounter Location Date Diagnosis [facility] [address] [place] [address] Dec, Primary insomnia F51.01 ; Anxiety F41.9 and Menopausal hot flushes N95.1 [facility] [address] [address] October, Dry mouth, unspecified R68.2 ; Pharyngitis, unspecified etiology J02.9 and Primary insomnia F51.01 [facility] [address] [address] October, [facility] [address] [address] Sep, [facility] [address] [address] Sep, Hemoptysis R04.2 [facility] [address] [address] Sep, Primary insomnia F51.01 [facility] [address] [address] Sep, Adverse effect of drug, initial encounter T88.7XXA [facility] [address] [address] Aug, Adverse effect of drug, initial encounter T88.7XXA [facility] [address] [address] Aug, Primary insomnia F51.01 [facility] [address] [address] Jul, [address] [address] Jul, Primary insomnia F51.01 [facility] [address] [facility] [id number], [place] [address] Jul, [address] [address] Jul, Atrial tachycardia I47.[address] [address] Jul, [address] [address] Jun, Flu-like symptoms R68.89 and Chronic obstructive pulmonary disease, unspecified COPD type J44.[address] [address] Jun, [facility] [address] [address] Jun, [address] [address] Jun, [address] [address] Jun, Epigastric pain R10.13 ; Diarrhea, unspecified type R19.7 and Non-intractable vomiting without nausea, unspecified vomiting type R11.11 [facility] [address] [id number], [place] [address] May, [address] [address] May, Chronic nonintractable headache, unspecified headache type R51 [address] [address] May, [address] [address] May, Essential hypertension I10 ; Thyroiditis E06.9 and Nonintractable episodic headache, unspecified headache type R51 [address] [address] Feb, Dyslipidemia E78.5 ; Vitamin D deficiency E55.9 and Atherosclerosis of left carotid artery I65.[address] [address] Jan, [facility] [address] [id number], [place] [address] Dec, [address] [address] Dec, Atrial tachycardia I47.1 ; History of thyroidectomy E89.0 ; Primary insomnia F51.01 and Tobacco use Z72.[address] [address] October, Galactorrhea O92.[address] [address] October, [address] [address] October, [address] [address] October, [address] [address] October, Cough R05 and Other chest pain R07.89 [facility] [place] [address] [place] [address] 18 Sep, 2016 Dysuria R30.0 ; Acute cystitis without hematuria N30.00 and Chest tightness or pressure R07.89 [facility] [place] [address] [place] [address] Sep, [facility] [place] [address] [place] [address] Sep, Acute bilateral low back pain without sciatica M54.5 [facility] [place] [address] [place] [address] Aug, Dermatitis L30.9 ; Other insomnia G47.09 and Anxiety F41.9 [facility] [address] [address] Aug, [facility] [address] [address] Aug, Hypertension I10 ; Dyslipidemia E78.5 and Vitamin D deficiency E55.9 [facility] [address] [address] Jun, Anxiety F41.9 and Hypertension I10 [facility] [address] [facility] [id number] [place] [address] Jun, [facility] [address] [address] Jun, Anxiety F41.9 and Hypertension I10 [facility] [place] [address] [place] [address] Jun, [facility] [place] [address] [place] [address] May, [facility] [address] [place] [address] May, Acute upper back pain M54.9 and Hypertension I10 [facility] [place] [address] [place] [address] Apr, [facility] [place] [address] [place] [address] Apr, Mid-back pain, acute M54.9 ; Dyslipidemia E78.5 and Hypertension I10 [facility] [place] [address] [place] [address] Apr, [facility] [place] [address] [place] [address] Apr, [address] [address] Feb, Familial hypercholesterolemia E78.0 ; Occlusion and stenosis of left carotid artery I65.22 and Vitamin D deficiency E55.[address] [address] Feb, [address] [address] Feb, Fever, unspecified fever cause R50.9 and Acute non-recurrent maxillary sinusitis J01.[address] [address] Jan, [address] [address] Jan, [address] [address] Jan, Nodule of neck R22.1 and Night sweats R61 [address] [address] Dec, [address] [address] Dec, [address] [address] Nov, [address] [address] Nov, [address] [address] October, Acute upper respiratory infection, unspecified J06.9 ; Other viral agents as the cause of diseases classified elsewhere B97.89 and Calculus of gallbladder without cholecystitis without obstruction K80.[address] [address] Sep, Insomnia, unspecified type G47.00 ; Hypertension I10 and Elevated LFTs R79.[address] [address] Sep, Bleeding after intercourse N93.0 and Dysuria R30.[address] [address] Aug, Dysuria R30.0 and Pyuria N39.[address] [address] Aug, Hypertension I10 ; Insomnia, unspecified type G47.00 and 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 [address] 12 Jul, 2015 Pain of upper extremity M79.603 ; Hypertension I10 and Pure hypercholesterolemia E78.[address] [address] 09 Jul, 2015 Physical exam, pre- employment Z02.1 ; Visit for TB skin test Z11.1 ; Facial rash R21 and 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 [address] 04 Jul, 2015 Other and unspecified hyperlipidemia E78.5 ; Vitamin D deficiency E55.9 and Borderline abnormal thyroid function test R94.[address] [address] Jun, 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 ; Dyslipidemia E78.5 ; Dyspnea on exertion R06.09 ; Family history of cardiovascular disease Z82.49 and Borderline abnormal thyroid function test R94.[address] [address] May, Other emphysema J43.8 ; Smoking F17.200 and Tobacco abuse counseling Z71.[address] [address] May, Cough R05 and Other emphysema J43.[address] [address] Apr, [address] [address] Apr, Skin lesion of back L98.9 and Skin lesion L98.[address] [address] Apr, Skin lesion of back L98.9 and Hot flashes N95.[address] [address] Mar, Bronchitis J40 [address] [address] 09 Mar, 2015 Acute pharyngitis, unspecified J02.9 and Upper respiratory infection with cough and congestion J06.9 [facility] [address] [place] [address] Mar, Bronchitis J40 ; Shortness of breath R06.02 ; Encounter for screening mammogram for breast cancer Z12.31 and Yeast infection B37.9 [facility] [address] [place] [address] Jan, Other and unspecified hyperlipidemia 272.4 and Hypothyroidism 244.[address] [address] Dec, [address] [address] Nov, Diarrhea 787.91 and Nausea 787.02 [facility] [address] [address] October, Other and unspecified hyperlipidemia 272.[address] [address] October, Lumbago 724.2 [facility] [address] [address] Sep, [facility] [id number] [place] [address] Sep, [facility] [id number] [place] [address] Aug, [address] [address] Aug, [address] [address] Jun, [facility] [id number] [place] [address] Jun, [facility] [address] [address] May, [facility] [address] [address] May, [facility] [address] [place] [address] May, [address] [address] Apr, [facility] [place] [facility] [address] [id number], [place] [address] Apr, [facility] [address] [place] [address] Mar, [facility] [place] [facility] [address] [id number] [place] [address] Mar, [facility] [address] [place] [address] Mar, [facility] [place] [facility] [address] [facility] [id number], [place] [address] Mar, [facility] [place] [facility] [address] [facility] [id number] [place] [address], [place] [address] Mar, [facility] [address] [place] [address] Mar, [facility] [address] [place] [address] Feb, [facility] [place] [facility] [address] [id number], [place] [address] Feb, [facility] [address] [place] [address] Jan, [facility] [place] [facility] [address] [id number], [place] [address] Jan, [facility] [place] [facility] [address] [id number], [place] [address] Jan, [facility] [place] [facility] [address] [facility] [id number] [place] [address] Jan, [facility] [address] [place] [address] Jan, [facility] [place] [facility] [address] [facility] [id number] [place] [address] Jan, [facility] [address] [place] [address] Dec, [facility] [place] [facility] [address] [facility] [id number], [place] [address] Dec, [facility] [place] [facility] [address] [id number], [place] [address] Dec, [facility] [address] [facility] [id number], [place] [address] Dec, [facility] [address] [place] [address] Dec, [facility] [address] [place] [address] Dec, [facility] [address] [facility] [id number], [place] [address] Dec, [facility] [address] [place] [address] October, [facility] [address] [facility] [id number], [place] [address] October, [facility] [place] [facility] [address] [facility] [id number], [place] [address] October, [facility] [address] [place] [address] Sep, [facility] [place] [facility] [address] [facility] [id number], [place] [address] Sep, [facility] [address] [place] [address] Sep, [facility] [address] [facility] [id number], [place] [address] Sep, [facility] [place] [facility] [address] [id number], [place] [address] Aug, [facility] [address] [place] [address] Aug, [facility] [place] [facility] [address] [facility] [id number], [place] [address] Jun, [facility] [place] [facility] [address] [facility] [id number], [place] [address] Jun, [facility] [address] [place] [address] Jun, [facility] [address] [place] [address] May, [facility] [place] [facility] [address] [facility] [id number], [place] [address] May, [facility] [address] [facility] [id number], [place] [address] May, [facility] [address] [place] [address] May, [facility] [address] [place] [address] Apr, [facility] [address] [id number], [place] [address] Apr, [facility] [address] [facility] [id number], [place] [address] Feb, [facility] [address] [place] [address] Feb, IMMUNIZATIONS No Known Immunizations SOCIAL HISTORY Never Assessed REASON FOR VISIT nurse call PLAN OF CARE VITAL SIGNS MEDICATIONS Medication Instructions Dosage Frequency Start Date End Date Duration Status PredniSONE 5 MG Orally Once a day 4 tabs daily x 4 days, 2 tabs daily x 4 days then 1 tab daily for 4 days 24h Aug, Active RESULTS No Results PROCEDURES No Known [...]
--- OUTSIDE RECORDS SUMMARY | 2019-04-01 10:48 | XMS REPORT ---
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 Role Phone KEVIN BEJARANO Unavailable PROBLEMS Type Condition ICD9-CM Code SDX75-FX Code Onset Dates Condition Status SNOMED Code Problem Hot flashes N95.1 Active 384724469 Problem Elevated LFTs R79.89 Active 215084280 Problem Skin lesion of back L98.9 Active 37210445 Problem Familial hypercholesterolemia E78.0 Active 002153041 Problem Smoking F17.200 Active 47067128 Problem Gastroparesis K31.84 Active 203312014 Problem Other insomnia G47.09 Active 520433823 Problem Anxiety F41.9 Active 28097261 Problem Chronic obstructive pulmonary disease, unspecified COPD type J44.9 Active 24961202 Problem Essential hypertension I10 Active 75729275 Problem Family history of cardiovascular disease Z82.49 Active 131735637 Problem Borderline abnormal thyroid function test R94.6 Active 768046547 Problem Other emphysema J43.8 Active 31972627 Problem Atrial tachycardia I47.1 Active 411925057 Problem Primary insomnia F51.01 Active 2782545 Problem Thyroiditis E06.9 Active 52850334 Problem History of thyroidectomy E89.0 Active 403759711 Problem 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 37806301 Problem Vitamin D deficiency E55.9 Active 76888999 Problem Dyspnea on exertion R06.09 Active 74044444 Problem Dyslipidemia E78.5 Active 645596277 Problem Hypertension I10 Active 15629825 Problem Insomnia, unspecified type G47.00 Active 106436897 Problem Other and unspecified hyperlipidemia E78.5 Active 45947804 Problem Facial rash R21 Active 241351008 ALLERGIES No Information ENCOUNTERS Encounter Location Date Diagnosis [facility] [place] [address] [facility] [address] [id number] [place] [id number] Dec, [facility] [place] [address] [facility] [address] [id number] [place] [id number] October, Dry mouth, unspecified R68.2 ; Pharyngitis, unspecified etiology J02.9 and Primary insomnia F51.01 [facility] [place] [address] [place] [address] [address] [id number] [place] [id number] October, [facility] [place] [address] [place] [address] [address] [id number] [place] [id number] Sep, [facility] [place] [address] [place] [address] [address] [id number] [place] [id number] Sep, Hemoptysis R04.[address] [facility] [place] [address] [place] [address] [address] [id number] [place] 130163272 Sep, Primary insomnia F51.01 [facility] [place] [address] [place] [address] [address] [id number] [place] [id number] Sep, Adverse effect of drug, initial encounter T88.7XXA [facility] [place] [address] [place] [address] [address] [id number] [place] 836204094 Aug, Adverse effect of drug, initial encounter T88.7XXA [facility] [place] [address] [place] [address] [address] [id number] [place] [id number] Aug, Primary insomnia F51.01 [facility] [place] [address] [place] [address] [address] [id number] [place] [id number] Jul, [facility] [place] [address] [place] [address] [address] [id number] [place] [id number] Jul, Primary insomnia F51.01 [facility] [place] [address] [facility] [id number] [place] [address] Jul, [facility] [place] [address] [place] [address] [address] [id number] [place] [id number] Jul, Atrial tachycardia I47.[address] [facility] [place] [address] [place] [address] [address] [id number] [place] [id number] Jul, [facility] [place] [address] [place] [address] [address] [id number] [place] [id number] Jun, Flu-like symptoms R68.89 and Chronic obstructive pulmonary disease, unspecified COPD type J44.9 [facility] [place] [address] [facility] [address] [id number] [place] [id number] Jun, [facility] [place] [address] [facility] [address] [id number] [place] [id number] Jun, [facility] [place] [address] [facility] [address] [id number] [place] [id number] Jun, [facility] [place] [address] [place] [address] C [id number] [place] [id number] Jun, Epigastric pain R10.13 ; Diarrhea, unspecified type R19.7 and Non-intractable vomiting without nausea, unspecified vomiting type R11.11 [facility] [address] [facility] [id number] [place] [address] May, [facility] [place] [address] [place] [address] C [id number] [place] [id number] May, Chronic nonintractable headache, unspecified headache type R51 [facility] [place] [address] [place] [address] C [id number] [place] [id number] May, [facility] [place] [address] [place] [address] C [id number] [place] 108797575 May, Essential hypertension I10 ; Thyroiditis E06.9 and Nonintractable episodic headache, unspecified headache type R51 [facility] [place] [address] [place] [address] C [id number] [place] 540972146 Feb, Dyslipidemia E78.5 ; Vitamin D deficiency E55.9 and Atherosclerosis of left carotid artery I65.22 [facility] [place] [address] [place] [address] C [id number] [place] [id number] Jan, [facility] [address] [facility] [id number] [place] [address] Dec, [facility] [place] [address] [place] [address] C [id number] [place] 945721709 Dec, Atrial tachycardia I47.1 ; History of thyroidectomy E89.0 ; Primary insomnia F51.01 and Tobacco use Z72.0 [facility] [place] [address] [place] [address] C [id number] [place] [id number] October, Galactorrhea O92.6 [facility] [place] [address] [facility] [address] [id number] [place] [id number] October, [facility] [place] [address] [facility] [address] [id number] [place] [id number] October, [facility] [place] [address] [facility] [address] [id number] [place] [id number] October, [facility] [place] [address] [facility] [address] [id number] [place] 640253567 October, Cough R05 and Other chest pain R07.89 [facility] [place] [address] [place] [address] [address] [id number] [place] 763168942 Sep, Dysuria R30.0 ; Acute cystitis without hematuria N30.00 and Chest tightness or pressure R07.89 [facility] [place] [address] [place] [address] [address] [id number] [place] [id number] Sep, [facility] [place] [address] [place] [address] [address] [id number] [place] [id number] Sep, Acute bilateral low back pain without sciatica M54.5 [facility] [place] [address] [place] [address] [address] [id number] [place] 9706[address] Aug, Dermatitis L30.9 ; Other insomnia G47.09 and Anxiety F41.9 [facility] [place] [address] [place] [address] [address] [id number] [place] [id number] Aug, [facility] [place] [address] [place] [address] [address] [id number] [place] 2247[address] Aug, Hypertension I10 ; Dyslipidemia E78.5 and Vitamin D deficiency E55.9 [facility] [place] [address] [place] [address] [address] [id number] [place] [id number] Jun, Anxiety F41.9 and Hypertension I10 [facility] [address] [facility] [id number] [place] [address] Jun, [facility] [place] [address] [place] [address] [address] [id number] [place] [id number] Jun, Anxiety F41.9 and Hypertension I10 [facility] [place] [address] [facility] [address] [id number] [place] 445470231 Jun, [facility] [place] [address] [facility] [address] [id number] [place] [id number] May, [facility] [place] [address] [facility] [address] [id number] [place] 318443491 May, Acute upper back pain M54.9 and Hypertension I10 [facility] [place] [address] [facility] [address] [id number] [place] 736637253 Apr, [facility] [place] [address] [place] [address] [address] [id number] [place] 038454699 Apr, Mid-back pain, acute M54.9 ; Dyslipidemia E78.5 and Hypertension I10 [facility] [place] [address] [place] [address] [address] [id number] [place] 500413149 Apr, [facility] [place] [address] [facility] [address] [id number] [place] [id number] Apr, [facility] [place] [address] [place] [address] [address] [id number] [place] 504171396 Feb, Familial hypercholesterolemia E78.0 ; Occlusion and stenosis of left carotid artery I65.22 and Vitamin D deficiency E55.9 [facility] [place] [address] [place] [address] [address] [id number] [place] [id number] Feb, [facility] [place] [address] [facility] [address] [id number] [place] 262861508 Feb, Fever, unspecified fever cause R50.9 and Acute non-recurrent maxillary sinusitis J01.00 [facility] [place] [address] [facility] [address] [id number] [place] [id number] Jan, [facility] [place] [address] [facility] [address] [id number] [place] [id number] Jan, [facility] [place] [address] [facility] [address] [id number] [place] 215659631 Jan, Nodule of neck R22.1 and Night sweats R61 [facility] [place] [address] [facility] [address] [id number] [place] [id number] Dec, [facility] [place] [address] [place] [address] [address] [id number] [place] [id number] Dec, [facility] [place] [address] [place] [address] [address] [id number] [place] [id number] Nov, [facility] [place] [address] [place] [address] C [id number] [place] [id number] Nov, [facility] [place] [address] [place] [address] C [id number] [place] [id number] October, Acute upper respiratory infection, unspecified J06.9 ; Other viral agents as the cause of diseases classified elsewhere B97.89 and Calculus of gallbladder without cholecystitis without obstruction K80.20 [facility] [place] [address] [place] [address] C [id number] [place] [id number] Sep, Insomnia, unspecified type G47.00 ; Hypertension I10 and Elevated LFTs R79.89 [facility] [place] [address] [place] [address] C [id number] [place] [id number] Sep, Bleeding after intercourse N93.0 and Dysuria R30.0 [facility] [place] [address] [place] [address] C [id number] [place] 819384601 Aug, Dysuria R30.0 and Pyuria N39.0 [facility] [place] [address] [place] [address] C [id number] [place] [id number] Aug, Hypertension I10 ; Insomnia, unspecified type G47.00 and 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 [facility] [place] [address] [place] [address] C [id number] [place] [id number] 12 Jul, 2015 Pain of upper extremity M79.603 ; Hypertension I10 and Pure hypercholesterolemia E78.0 [facility] [place] [address] [place] [address] C [id number] [place] [id number] 09 Jul, 2015 Physical exam, pre-employment Z02.1 ; Visit for TB skin test Z11.1 ; Facial rash R21 and 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 [facility] [place] [address] [place] [address] C [id number] [place] [id number] 04 Jul, 2015 Other and unspecified hyperlipidemia E78.5 ; Vitamin D deficiency E55.9 and Borderline abnormal thyroid function test R94.[address] C [id number] [place] 8373478[place] Jun, 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 ; Dyslipidemia E78.5 ; Dyspnea on exertion R06.09 ; Family history of cardiovascular disease Z82.49 and Borderline abnormal thyroid function test R94.[address] C [id number] [place] [id number] May, Other emphysema J43.8 ; Smoking F17.200 and Tobacco abuse counseling Z71.[address] C [id number] [place] 377936975 May, Cough R05 and Other emphysema J43.[address] C [id number] [place] 194944104 Apr, [address] C [id number] [place] 2836[address]227 Apr, Skin lesion of back L98.9 and Skin lesion L98.[address] C [id number] [place] [id number] Apr, Skin lesion of back L98.9 and Hot flashes N95.[address] C [id number] [place] 828037919 Mar, Bronchitis J40 [address] C [id number] [place] [address] Mar, Acute pharyngitis, unspecified J02.9 and Upper respiratory infection with cough and congestion J06.[address] C [id number] [place], [place] 610948218 Mar, Bronchitis J40 ; Shortness of breath R06.02 ; Encounter for screening mammogram for breast cancer Z12.31 and Yeast infection B37.[address] C [id number] [place] [id number] Jan, Other and unspecified hyperlipidemia 272.4 and Hypothyroidism 244.[address] C [id number] [place] [id number] Dec, [facility] [place] [address] [facility] [address] [id number] [place] 789431993 Nov, Diarrhea 787.91 and Nausea 787.02 [facility] [place] [address] [facility] [address] [id number] [place] [id number] October, Other and unspecified hyperlipidemia 272.4 [facility] [place] [address] [facility] [address] [id number] [place] [id number] October, Lumbago 724.2 [facility] [place] [facility] [address] [facility] [id number] [place] [address] Sep, [facility] [address] [facility] [id number] [place] [address] Sep, [facility] [address] [facility] [id number] [place] [address] Aug, [facility] [place] [address] [facility] [address] [id number] [place] 700181515 Aug, [facility] [place] [address] [facility] [address] [id number] [place] [id number] Jun, [facility] [address] [facility] [id number] [place] [address] Jun, [facility] [address] [facility] [id number] [place] [address] May, [facility] [place] [facility] [address] [facility] [id number] [place] [address] May, [facility] [place] [address] [facility] [address] [id number] [place] [id number] May, [facility] [place] [address] [facility] [address] [id number] [place] [id number] Apr, [facility] [place] [facility] [address] [facility] [id number] [facility] [address] Apr, [facility] [place] [address] [facility] [address] [id number] [place] 846190818 Mar, [facility] [place] [facility] [address] [id number] [place] [address] Mar, [facility] [place] [address] [id number] [place] [id number] Mar, [facility] [place] [facility] [address] [id number] [place] [address] Mar, [facility] [place] [facility] [address] [id number] [facility] [place] [address] Mar, [facility] [place] [address] [id number] [place] [id number] Mar, [facility] [place] [address] [id number] [place] 692738281 Feb, [facility] [place] [facility] [address] [id number] [facility] [place] [address] Feb, [facility] [place] [address] [id number] [place] 722833377 Jan, [facility] [place] [facility] [address] [id number] [facility] [place] [address] Jan, [facility] [place] [facility] [address] [id number] [place] [address] Jan, [facility] [place] [facility] [address] [id number] [facility] [place] [address] Jan, [facility] [place] [address] [id number] [place] [id number] Jan, [facility] [place] [facility] [address] [id number] [place] [address] Jan, [facility] [place] [address] [id number] [place] 512479971 Dec, [facility] [place] [facility] [address] [id number] [place] [address] Dec, [facility] [place] [facility] [address] [id number] [place] [address] Dec, [facility] [place] [facility] [address] [id number] [place] [address] Dec, [facility] [place] [address] [id number] [place] 613001043 Dec, [facility] [place] [address] [facility] [address] [id number] [place] [id number] Dec, [facility] [address] [id number] [facility] [place] [address] Dec, [facility] [place] [address] [id number] [place] [id number] October, [facility] [address] [id number] [facility] [place] [address] October, [facility] [address] [facility] [id number] [facility] [place] [address] October, [facility] [place] [address] [facility] [address] [id number] [place] [id number] Sep, [facility] [address] [facility] [id number] [facility] [place] [address] Sep, [facility] [place] [address] [facility] [address] [id number] [place] [id number] Sep, [facility] [address] [facility] [id number] [place] [address] Sep, [facility] [address] [id number] [facility] [place] [address] Aug, [facility] [place] [address] [facility] [address] [id number] [place] [id number] Aug, [facility] [place] [facility] [address] [id number] [facility] [place] [address] Jun, [facility] [address] [facility] [id number] [place] [address] Jun, [facility] [place] [address] [facility] [address] [id number] [place] [id number] Jun, [facility] [place] [address] [id number] [place] 920929702 May, [facility] [address] [facility] [id number] [place] [address] May, [facility] [address] [facility] [id number] [place] [address] May, [facility] [address] [facility] [address] [id number] [place] 9858[address]658 May, [facility] [place] [address] [facility] [address] [id number] [place] [id number] Apr, [facility] [address] [facility] [id number] [place] [address] Apr, [facility] [address] [facility] [id number] [place] [address] Feb, [facility] [address] [facility] [id number] [place] [id number] Feb, IMMUNIZATIONS No Known Immunizations SOCIAL HISTORY [...]
--- OUTSIDE RECORDS SUMMARY | 2019-04-01 10:48 | XMS REPORT ---
Author Author ASHELY OTT [facility] [address] [place] [address] Care Team Providers Care Pathology Specialist Name Role Phone ASHELY OTT Unavailable PROBLEMS Type Condition ICD9-CM Code KRA83-RJ Code Onset Dates Condition Status SNOMED Code Problem Hot flashes N95.1 Active 354276562 Problem Skin lesion of back L98.9 Active 46151572 Problem Familial hypercholesterolemia E78.0 Active 740315845 Problem Smoking F17.200 Active 20694481 Problem Gastroparesis K31.84 Active 718820531 Problem Other emphysema J43.8 Active 86249387 Problem Anxiety F41.9 Active 96106529 Problem Primary insomnia F51.01 Active 3043091 Problem Other insomnia G47.09 Active 642431838 Problem Menopausal hot flushes N95.1 Active 526967797 Problem Chronic obstructive pulmonary disease, unspecified COPD type J44.9 Active 92498380 Problem Dyspnea on exertion R06.09 Active 20529405 Problem Family history of cardiovascular disease Z82.49 Active 067451514 Problem Borderline abnormal thyroid function test R94.6 Active 166523219 Problem History of thyroidectomy E89.0 Active 654602421 Problem Atrial tachycardia I47.1 Active 164993962 Problem Essential hypertension I10 Active 26230528 Problem Thyroiditis E06.9 Active 89289635 Problem Vitamin D deficiency E55.9 Active 35777545 Problem Other and unspecified hyperlipidemia E78.5 Active 83103234 Problem Dyslipidemia E78.5 Active 456832005 Problem 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 33640793 Problem Insomnia, unspecified type G47.00 Active 609927769 Problem Elevated LFTs R79.89 Active 704697900 Problem Facial rash R21 Active 022144144 Problem Hypertension I10 Active 69062431 ALLERGIES Substance Reaction Event Type Date Status Promethazine VC/Codeine stomach upset Drug Allergy Aug, Active Fentanyl anaphylaxis Drug Allergy Aug, Active ENCOUNTERS Encounter Location Date Diagnosis [facility] [address] [place] [address] Dec, Primary insomnia F51.01 ; Anxiety F41.9 and Menopausal hot flushes N95.[address] [address] October, Dry mouth, unspecified R68.2 ; Pharyngitis, unspecified etiology J02.9 and Primary insomnia F51.01 [facility] [address] [address] October, [facility] [address] [address] Sep, [facility] [address] [address] Sep, Hemoptysis R04.[address] [address] Sep, Primary insomnia F51.[address] [address] Sep, Adverse effect of drug, initial encounter T88.7XXA [facility] [address] [address] Aug, Adverse effect of drug, initial encounter T88.7XXA [address] [address] Aug, Primary insomnia F51.[address] [address] Jul, [address] [address] Jul, Primary insomnia F51.01 [facility] [address] [facility] [id number] [place] [address] Jul, [address] [address] Jul, Atrial tachycardia I47.[address] [address] Jul, [address] [address] Jun, Flu-like symptoms R68.89 and Chronic obstructive pulmonary disease, unspecified COPD type J44.9 [address] [place] [address] Jun, [facility] [address] [place] [address] Jun, [address] [address] Jun, [address] [address] Jun, Epigastric pain R10.13 ; Diarrhea, unspecified type R19.7 and Non-intractable vomiting without nausea, unspecified vomiting type R11.11 [facility] [address] [address] May, [address] [address] May, Chronic nonintractable headache, unspecified headache type R51 [address] [address] May, [address] [address] May, Essential hypertension I10 ; Thyroiditis E06.9 and Nonintractable episodic headache, unspecified headache type R51 [address] [address] Feb, Dyslipidemia E78.5 ; Vitamin D deficiency E55.9 and Atherosclerosis of left carotid artery I65.[address] [address] Jan, [facility] [address] [address] Dec, [address] [address] Dec, Atrial tachycardia I47.1 ; History of thyroidectomy E89.0 ; Primary insomnia F51.01 and Tobacco use Z72.[address] [address] October, Galactorrhea O92.[address] [address] October, [address] [address] October, [address] [address] October, [facility] [place] [address] [place] [address] October, Cough R05 and Other chest pain R07.89 [facility] [place] [address] [place] [address] Sep, Dysuria R30.0 ; Acute cystitis without hematuria N30.00 and Chest tightness or pressure R07.89 [facility] [place] [address] [place] [address] Sep, [facility] [place] [address] [place] [address] Sep, Acute bilateral low back pain without sciatica M54.5 [facility] [place] [address] [place] [address] Aug, Dermatitis L30.9 ; Other insomnia G47.09 and Anxiety F41.9 [facility] [place] [address] [place] [address] Aug, [facility] [place] [address] [place] [address] Aug, Hypertension I10 ; Dyslipidemia E78.5 and Vitamin D deficiency E55.9 [facility] [place] [address] [place] [address] Jun, Anxiety F41.9 and Hypertension I10 [facility] [address] [facility] [id number] [address] Jun, [facility] [place] [address] [place] [address] Jun, Anxiety F41.9 and Hypertension I10 [facility] [place] [address] [place] [address] Jun, [facility] [address] [place] [address] May, [facility] [place] [address] [place] [address] May, Acute upper back pain M54.9 and Hypertension I10 [facility] [place] [address] [place] [address] Apr, [facility] [place] [address] [place] [address] Apr, Mid-back pain, acute M54.9 ; Dyslipidemia E78.5 and Hypertension I10 [facility] [place] [address] [place] [address] Apr, [address] [address] Apr, [address] [address] Feb, Familial hypercholesterolemia E78.0 ; Occlusion and stenosis of left carotid artery I65.22 and Vitamin D deficiency E55.[address] [address] Feb, [address] [address] Feb, Fever, unspecified fever cause R50.9 and Acute non-recurrent maxillary sinusitis J01.[address] [address] Jan, [address] [address] Jan, [address] [address] Jan, Nodule of neck R22.1 and Night sweats R61 [address] [address] Dec, [address] [address] Dec, [address] [address] Nov, [address] [address] Nov, [address] [address] October, Acute upper respiratory infection, unspecified J06.9 ; Other viral agents as the cause of diseases classified elsewhere B97.89 and Calculus of gallbladder without cholecystitis without obstruction K80.[address] [address] Sep, Insomnia, unspecified type G47.00 ; Hypertension I10 and Elevated LFTs R79.[address] [address] 11 Sep, 2015 Bleeding after intercourse N93.0 and Dysuria R30.[address] [address] Aug, Dysuria R30.0 and Pyuria N39.[address] [address] Aug, Hypertension I10 ; Insomnia, unspecified type G47.00 and 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 [address] 12 Jul, 2015 Pain of upper extremity M79.603 ; Hypertension I10 and Pure hypercholesterolemia E78.[address] [address] 09 Jul, 2015 Physical exam, pre- employment Z02.1 ; Visit for TB skin test Z11.1 ; Facial rash R21 and 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 [address] 04 Jul, 2015 Other and unspecified hyperlipidemia E78.5 ; Borderline abnormal thyroid function test R94.6 and Vitamin D deficiency E55.[address] [address] Jun, 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 ; Dyslipidemia E78.5 ; Dyspnea on exertion R06.09 ; Family history of cardiovascular disease Z82.49 and Borderline abnormal thyroid function test R94.[address] [address] May, Other emphysema J43.8 ; Smoking F17.200 and Tobacco abuse counseling Z71.[address] [address] May, Cough R05 and Other emphysema J43.[address] [address] Apr, [address] [address] Apr, Skin lesion of back L98.9 and Skin lesion L98.[address] [address] Apr, Skin lesion of back L98.9 and Hot flashes N95.[address] [address] Mar, Bronchitis J40 [address] [address] Mar, Acute pharyngitis, unspecified J02.9 and Upper respiratory infection with cough and congestion J06.[address] [address] Mar, Bronchitis J40 ; Shortness of breath R06.02 ; Encounter for screening mammogram for breast cancer Z12.31 and Yeast infection B37.[address] [address] Jan, Other and unspecified hyperlipidemia 272.4 and Hypothyroidism 244.[address] [address] Dec, [address] [address] Nov, Diarrhea 787.91 and Nausea 787.[address] [address] October, Other and unspecified hyperlipidemia 272.[address] [address] October, Lumbago 724.2 [facility] [address] [address] Sep, [facility] [address] [address] Sep, [facility] [address] [address] Aug, [address] [address] Aug, [address] [address] Jun, [facility] [address] [place] [id number] [place] [address] Jun, [facility] [address] [address] May, [facility] [address] [address] May, [address] [address] May, [facility] [place] [address] [place] [address] Apr, [facility] [place] [facility] [address], [place] [address] Apr, [facility] [place] [address] [place] [address] Mar, [facility] [place] [facility] [address], [place] [address] Mar, [facility] [place] [address] [place] [address] Mar, [facility] [place] [facility] [id number] [place] [address] Mar, [facility] [place] [facility] [id number] [place] [address] Mar, [facility] [place] [address] [place] [address] Mar, [facility] [place] [address] [place] [address] Feb, [facility] [place] [facility] [id number] [address] Feb, [facility] [place] [address] [place] [address] Jan, [facility] [place] [facility] [address], [place] [address] Jan, [facility] [place] [facility] [id number], [place] [address] Jan, [facility] [place] [facility] [id number], [place] [address] Jan, [facility] [place] [address] [place] [address] Jan, [facility] [place] [facility] [id number], [place] [address] Jan, [facility] [place] [address] [place] [address] Dec, [facility] [place] [facility] [address], [place] [address] Dec, [facility] [place] [facility] [address] [id number] [place] [address] Dec, [facility] [place] [facility] [address] [id number] [address] Dec, [facility] [place] [address] [place] [address] Dec, [facility] [place] [address] [place] [address] Dec, [facility] [place] [facility] [address] [facility] [id number] [place] [address] Dec, [facility] [place] [address] [facility] [address] October, [facility] [place] [facility] [address] [facility] [id number] [place] [address] October, [facility] [place] [facility] [address] [facility] [id number], [place] [address] October, [facility] [place] [address] [facility] [address] Sep, [facility] [place] [facility] [address] [facility] [id number] [place] [address] Sep, [facility] [place] [address] [place] [address] Sep, [facility] [place] [facility] [address] [facility] [id number], [place] [address] Sep, [facility] [place] [facility] [address] [facility] [id number], [place] [address] Aug, [facility] [place] [address] [place] [address] Aug, [facility] [place] [facility] [address] [id number] [place] [address] Jun, [facility] [place] [facility] [address] [facility] [id number] [place] [address] Jun, [facility] [place] [address] [place] [address] Jun, [facility] [place] [address] [place] [address] May, [facility] [id number], [place] [address] May, [facility] [address], [place] [address] May, [facility] [address] [place] [address] May, [facility] [address] [place] [address] Apr, [facility] [id number], [place] [address] Apr, [facility] [address] [place] [address] Feb, [facility] [address] [place] [address] Feb, IMMUNIZATIONS No Known Immunizations SOCIAL HISTORY Never Assessed REASON FOR VISIT Allergic reaction, possible from domperidone -- stopped med approx 1 wk ago; sti ll has rash on chest (around the middle); hands; very itchy..................... .......lwileyrn PLAN OF CARE Activity Details Follow Up 1 Week, prn Reason: VITAL SIGNS Height 65 in 2017-09-17 Weight 145.4 lbs 2017-09-17 Temperature 98.5 degrees Fahrenheit 2017-09-17 Heart Rate 68 bpm 2017-09-17 Respiratory Rate 16 2017-09-17 BMI 24.19 kg/m2 2017-09-17 Blood pressure systolic 120 mmHg 2017-09-17 Blood pressure diastolic 74 mmHg 2017-09-17 MEDICATIONS Medication Instructions Dosage Frequency Start Date End Date Duration Status Spiriva Respimat 2.5 MCG/ACT INHALE 2 PUFFS DAILY 30 Unknown Ambien 10 mg Orally Once a day at bedtime PRN for sleep Take 1 tablet 28 days Unknown Zofran ODT 4 MG Orally every 8 hrs 1 tablet on the tongue and allow to dissolve 8h Jun, 03 days Unknown pantoprazole 40 mg take 1 tablet (40 mg) by oral route 2 times per day Mar, Unknown D3-50 14943 UNIT Unknown Aspirin 81 mg take 1 tablet (81 mg) by oral route once daily Mar, Unknown Verapamil HCl ER 180 MG Orally Once a day 1 tablet 24h Unknown Losartan Potassium 50 MG Orally Once a day 1 tablet 24h Unknown PredniSONE 40 mg Orally Once a day 1 tablet 24h Aug, Sep, 05 days Active Fish Oil 1000 MG Orally Once a day 1 capsule 24h Unknown Crestor 10 MG Orally Once a day 1 tablet 24h Unknown Zetia 10 mg take 1 tablet (10 mg) by oral route once daily Jun, Unknown RESULTS No Results PROCEDURES No Known procedures [...]
--- OUTSIDE RECORDS SUMMARY | 2019-04-01 10:48 | XMS REPORT ---
Author Author KEVIN BEJARANO Organization [facility] Address [address] [place] [address] Care Team Providers Care Commercial Management Accountant Name Role Phone KEVIN BEJARANO Unavailable PROBLEMS Type Condition ICD9-CM Code RPZ44-LJ Code Onset Dates Condition Status SNOMED Code Problem Hot flashes N95.1 Active 539838288 Problem Skin lesion of back L98.9 Active 83436484 Problem Familial hypercholesterolemia E78.0 Active 105442894 Problem Smoking F17.200 Active 56671905 Problem Gastroparesis K31.84 Active 198993763 Problem Other emphysema J43.8 Active 70977971 Problem Anxiety F41.9 Active 84587679 Problem Primary insomnia F51.01 Active 5206099 Problem Other insomnia G47.09 Active 019587929 Problem Menopausal hot flushes N95.1 Active 305292384 Problem Chronic obstructive pulmonary disease, unspecified COPD type J44.9 Active 82905434 Problem Dyspnea on exertion R06.09 Active 59468005 Problem Family history of cardiovascular disease Z82.49 Active 254708701 Problem Borderline abnormal thyroid function test R94.6 Active 265885942 Problem History of thyroidectomy E89.0 Active 025743830 Problem Atrial tachycardia I47.1 Active 527152511 Problem Essential hypertension I10 Active 24670668 Problem Thyroiditis E06.9 Active 38091756 Problem Vitamin D deficiency E55.9 Active 06882717 Problem Other and unspecified hyperlipidemia E78.5 Active 32470542 Problem Dyslipidemia E78.5 Active 001258978 Problem 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 32524625 Problem Insomnia, unspecified type G47.00 Active 764029321 Problem Elevated LFTs R79.89 Active 775293075 Problem Facial rash R21 Active 656831732 Problem Hypertension I10 Active 29574172 ALLERGIES No Information ENCOUNTERS Encounter Location Date Diagnosis [facility] [place] [address] [id number] [place] [id number] Dec, Primary insomnia F51.01 ; Anxiety F41.9 and Menopausal hot flushes N95.1 [facility] [place] [address] [place] [address] [address] [id number] [place], [place] [id number] October, Dry mouth, unspecified R68.2 ; Pharyngitis, unspecified etiology J02.9 and Primary insomnia F51.01 [facility] [place] [address] [place] [address] [address] [id number] [place] [id number] October, [facility] [place] [address] [place] [address] [address] [id number] [place] [id number] Sep, [facility] [place] [address] [place] [address] [address] [id number] [place] 013671520 Sep, Hemoptysis R04.2 [facility] [place] [address] [place] [address] [address] [id number] [place] 387800052 Sep, Primary insomnia F51.01 [facility] [place] [address] [place] [address] [address] [id number] [place] 437400354 Sep, Adverse effect of drug, initial encounter T88.7XXA [facility] [place] [address] [place] [address] [address] [id number] [place] [id number] Aug, Adverse effect of drug, initial encounter T88.7XXA [facility] [place] [address] [place] [address] [address] [id number] [place] 223791888 Aug, Primary insomnia F51.01 [facility] [place] [address] [place] [address] [address] [id number] [place] [id number] Jul, [facility] [place] [address] [place] [address] [address] [id number] [place] [id number] Jul, Primary insomnia F51.01 [facility] [address] [facility] [id number] [place] [address] Jul, [facility] [place] [address] [place] [address] [address] [id number] [place] 454058618 Jul, Atrial tachycardia I47.1 [facility] [place] [address] [place] [address] [address] [id number] [place] [id number] Jul, [facility] [place] [address] [place] [address] [address] [id number] [place] 603203537 Jun, Flu-like symptoms R68.89 and Chronic obstructive pulmonary disease, unspecified COPD type J44.9 [facility] [place] [address] [place] [address] C [id number] [place] 094014272 Jun, [facility] [place] [address] [facility] C [id number] [place] [id number] Jun, [facility] [place] [address] [place] [address] C [id number] [place] [id number] Jun, [facility] [place] [address] [place] [address] C [id number] [place] 935109830 Jun, Epigastric pain R10.13 ; Diarrhea, unspecified type R19.7 and Non-intractable vomiting without nausea, unspecified vomiting type R11.11 [place] [address] [facility] [id number] [address] May, [facility] [place] [address] [place] [address] C [id number] [place], [place] 518951470 May, Chronic nonintractable headache, unspecified headache type R51 [facility] [place] [address] [place] [address] C [id number] [place], [place] [id number] May, [facility] [place] [address] [place] [address] C [id number] [place] 115280426 May, Essential hypertension I10 ; Thyroiditis E06.9 and Nonintractable episodic headache, unspecified headache type R51 [facility] [place] [address] [place] [address] C [id number] [place] 802809948 Feb, Dyslipidemia E78.5 ; Vitamin D deficiency E55.9 and Atherosclerosis of left carotid artery I65.22 [facility] [place] [address] [place] [address] C [id number] [place] [id number] Jan, [facility] [address] [facility] [id number] [address] Dec, [facility] [place] [address] [place] [address] [id number] [place] [id number] Dec, Atrial tachycardia I47.1 ; History of thyroidectomy E89.0 ; Primary insomnia F51.01 and Tobacco use Z72.0 [facility] [place] [address] [facility] [address] [id number] [place] 947792588 October, Galactorrhea O92.6 [facility] [place] [address] [place] [address] [address] [id number] [place] 977918079 October, [facility] [place] [address] [facility] [address] [id number] [place] [id number] October, [facility] [place] [address] [place] [address] [address] [id number] [place] 918799310 October, [facility] [place] [address] [place] [address] [address] [id number] [place] 770570444 October, Cough R05 and Other chest pain R07.89 [facility] [place] [address] [place] [address] [address] [id number] [place] 319294804 Sep, Dysuria R30.0 ; Acute cystitis without hematuria N30.00 and Chest tightness or pressure R07.89 [facility] [place] [address] [place] [address] [address] [id number] [place] 399043680 Sep, [facility] [place] [address] [place] [address] [address] [id number] [place] 065736593 Sep, Acute bilateral low back pain without sciatica M54.5 [facility] [place] [address] [place] [address] [address] [id number] [place] 201440176 Aug, Dermatitis L30.9 ; Other insomnia G47.09 and Anxiety F41.9 [facility] [place] [address] [place] [address] [address] [id number] [place] 255880919 Aug, [facility] [place] [address] [place] [address] [address] [id number] [place] 375161018 Aug, Hypertension I10 ; Dyslipidemia E78.5 and Vitamin D deficiency E55.9 [facility] [place] [address] [place] [address] [address] [id number] [place] 479173555 Jun, Anxiety F41.9 and Hypertension I10 [facility] [address] [facility] [id number] [place] [address] Jun, [facility] [place] [address] [facility] [address] [id number] [place] 268618709 Jun, Anxiety F41.9 and Hypertension I10 [facility] [place] [address] [facility] [address] [id number] [place], [place] [id number] Jun, [facility] [place] [address] [facility] [address] [id number] [place] 022115575 May, [facility] [place] [address] [facility] [address] [id number] [place] 567319927 May, Acute upper back pain M54.9 and Hypertension I10 [facility] [place] [address] [place] [address] [address] [id number] [place] [id number] Apr, [facility] [place] [address] [place] [address] [address] [id number] [place] [id number] Apr, Mid-back pain, acute M54.9 ; Dyslipidemia E78.5 and Hypertension I10 [facility] [place] [address] [place] [address] [address] [id number] [place] [id number] Apr, [facility] [place] [address] [place] [address] [address] [id number] [place] 794245922 Apr, [facility] [place] [address] [place] [address] [address] [id number] [place] 950076713 Feb, Familial hypercholesterolemia E78.0 ; Occlusion and stenosis of left carotid artery I65.22 and Vitamin D deficiency E55.9 [facility] [place] [address] [place] [address] [address] [id number] [place] [id number] Feb, [facility] [place] [address] [facility] [address] [id number] [place] 043328968 Feb, Fever, unspecified fever cause R50.9 and Acute non-recurrent maxillary sinusitis J01.00 [facility] [place] [address] [facility] [address] [id number] [place] [id number] Jan, [facility] [place] [address] [facility] [address] [id number] [place] 739139386 Jan, [facility] [place] [address] [facility] [address] [id number] [place] 785084963 Jan, Nodule of neck R22.1 and Night sweats R61 [facility] [place] [address] [place] [address] [address] [id number] [place] 775421627 Dec, [facility] [place] [address] [place] [address] C [id number] [place] 798693251 Dec, [facility] [place] [address] [place] [address] C [id number] [place] [id number] Nov, [facility] [place] [address] [place] [address] [address] [id number] [place] [id number] Nov, [facility] [place] [address] [place] [address] C [id number] [place] [id number] October, Acute upper respiratory infection, unspecified J06.9 ; Other viral agents as the cause of diseases classified elsewhere B97.89 and Calculus of gallbladder without cholecystitis without obstruction K80.20 [facility] [place] [address] [place] [address] C [id number] [place], [place] 325674891 Sep, Insomnia, unspecified type G47.00 ; Hypertension I10 and Elevated LFTs R79.89 [facility] [place] [address] [place] [address] C [id number] [place] 563090757 Sep, Bleeding after intercourse N93.0 and Dysuria R30.0 [facility] [place] [address] [place] [address] C [id number] [place] 142120379 Aug, Dysuria R30.0 and Pyuria N39.0 [facility] [place] [address] [place] [address] C [id number] [place] [id number] Aug, Hypertension I10 ; Insomnia, unspecified type G47.00 and 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 [facility] [place] [address] [place] [address] [address] [id number] [place] [id number] 12 Jul, 2015 Pain of upper extremity M79.603 ; Hypertension I10 and Pure hypercholesterolemia E78.0 [facility] [place] [address] [place] [address] C [id number] [place] [id number] 09 Jul, 2015 Physical exam, pre-employment Z02.1 ; Visit for TB skin test Z11.1 ; Facial rash R21 and 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 C [id number] [place] 329392390 04 Jul, 2015 Other and unspecified hyperlipidemia E78.5 ; Borderline abnormal thyroid function test R94.6 and Vitamin D deficiency E55.[address] C [id number] [place] [id number] 12 Jun, 2015 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 ; Dyslipidemia E78.5 ; Dyspnea on exertion R06.09 ; Family history of cardiovascular disease Z82.49 and Borderline abnormal thyroid function test R94.[address] C [id number] [place] 171003378 May, Other emphysema J43.8 ; Smoking F17.200 and Tobacco abuse counseling Z71.[address] C [id number] [place] 636494698 May, Cough R05 and Other emphysema J43.[address] C [id number] [place] 5899098[address] Apr, [address] C [id number] [place] 975809694 Apr, Skin lesion of back L98.9 and Skin lesion L98.[address] C [id number] [place] [id number] 03 Apr, 2015 Skin lesion of back L98.9 and Hot flashes N95.[address] [id number] [place] 969487794 Mar, Bronchitis J40 [address] C [id number] [place] 878111408 Mar, Acute pharyngitis, unspecified J02.9 and Upper respiratory infection with cough and congestion J06.[address] C [id number] [place] 597179484 Mar, Bronchitis J40 ; Shortness of breath R06.02 ; Encounter for screening mammogram for breast cancer Z12.31 and Yeast infection B37.[address] [id number] [place], [place] 534366841 Jan, Other and unspecified hyperlipidemia 272.4 and Hypothyroidism 244.9 [facility] [place] [address] [id number] [place] 140736486 Dec, [facility] [place] [address] [facility] [address] [id number] [place] 192453770 Nov, Diarrhea 787.91 and Nausea 787.02 [facility] [place] [address] [facility] [address] [id number] [place] 429195254 October, Other and unspecified hyperlipidemia 272.4 [facility] [place] [address] [facility] [address] [id number] [place] 685162180 October, Lumbago 724.2 [facility] [address] [facility] [id number] [address] Sep, [facility] [address] [id number] [address] Sep, [facility] [address] [facility] [id number][place] [address] Aug, [facility] [place] [address] [facility] [address] [id number] [place] 572804478 Aug, [facility] [place] [address] [facility] [address] [id number] [place] [id number] Jun, [facility] [address] [place] [id number] [address] Jun, [facility] [address] [facility] [id number][place] [address] May, [facility] [address] [facility] [id number] [place] [address] May, [facility] [place] [address] [facility] [address] [id number] [place] 116805840 May, [facility] [place] [address] [facility] [address] [id number] [place] [id number] Apr, [facility] [address] [facility] [id number] [place] [address] Apr, [facility] [place] [address] [id number] [place] [id number] Mar, [facility] [place] [facility] [address] [id number] [place] [address] Mar, [facility] [place] [address] [id number] [place] 396169616 Mar, [facility] [place] [facility] [address] [id number] [place] [address] Mar, [facility] [place] [facility] [address] [id number] [place] [address] Mar, [facility] [place] [address] [id number] [place] 720007208 Mar, [facility] [place] [address] [id number] [place] [id number] Feb, [facility] [place] [facility] [address] [facility] [id number] [place] [address] Feb, [facility] [place] [address] [id number] [place] 803978614 Jan, [facility] [place] [facility] [address] [facility] [id number] [facility] [place] [address] Jan, [facility] [place] [facility] [address] [facility] [id number] [place] [address] Jan, [facility] [place] [facility] [address] [facility] [id number] [facility] [place] [address] Jan, [facility] [place] [address] [id number] [place] [id number] Jan, [facility] [place] [facility] [address] [facility] [id number] [facility] [place] [address] Jan, [facility] [place] [address] [id number] [place] 123719225 Dec, [facility] [place] [facility] [address] [facility] [id number] [facility] [place] [address] Dec, [facility] [place] [facility] [address] [id number] [place] [address] Dec, [facility] [place] [facility] [address] [id number] [place] [address] Dec, [facility] [place] [address] [id number] [place] 395224044 Dec, [facility] [place] [address] [id number] [place] 819023353 Dec, [facility] [place] [facility] [address] [id number] [place] [address] Dec, [facility] [place] [address] [id number] [place] 108699409 October, [facility] [place] [facility] [address] [id number] [place] [address] October, [facility] [place] [facility] [address] [id number] [place] [address] October, [facility] [place] [address] [id number] [place] [id number] Sep, [facility] [place] [facility] [address] [id number] [place] [address] Sep, [facility] [place] [address] [id number] [place] 424489946 Sep, [facility] [place] [facility] [address] [id number] [facility] [place] [address] Sep, [facility] [place] [facility] [address] [id number] [place] [address] Aug, [facility] [place] [address] [id number] [place] 085617141 Aug, [facility] [place] [facility] [address] [id number] [place] [address] Jun, [facility] [place] [facility] [address] [id number] [facility] [place] [address] Jun, [facility] [place] [address] [id number] [place] [id number] 16 Jun, 2013 [facility] [place] [address] [facility] C [id number] [place] [id number] May, [facility] [address] [facility] [id number] [place] [address] 17 May, 2013 [facility] [address] [facility] [id number] [place] [address] May, [facility] [place] [address] [facility] C [id number] [place] [id number] May, [facility] [place] [address] [facility] C [id number] [place] 790617846 Apr, [facility] [address] [facility] [id number] [place] [address] Apr, [facility] [address] [facility] [id number] [place] [address] Feb, [facility] [address] [facility] C [id number] [place] 0[address]18786 Feb, IMMUNIZATIONS No Known Immunizations SOCIAL HISTORY Never Assessed REASON FOR VISIT medication question PLAN OF CARE VITAL SIGNS MEDICATIONS Medication Instructions Dosage Frequency Start Date End Date Duration Status Ambien 10 mg Orally Once a day at bedtime PRN for sleep Take 1 tablet 28 days Active RESULTS No Results PROCEDURES No [...]
--- OUTSIDE RECORDS SUMMARY | 2019-04-01 10:49 | XMS REPORT ---
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 Problem Dyslipidemia E78.5 Active Problem Insomnia, unspecified type G47.00 Active Problem Nonspecific low blood pressure reading 796.3 Active Problem Hypertension I10 Active Problem Elevated LFTs R79.89 Active Problem Other and unspecified hyperlipidemia E78.5 Active Problem Vitamin D deficiency E55.9 Active Problem Pure hypercholesterolemia E78.0 Active Problem Facial rash R21 Active Problem Other and unspecified hyperlipidemia 272.4 Active Problem Nonspecific abnormal results of liver function study 794.8 Active Problem Counseling on substance use and abuse V65.42 Active Problem Essential hypertension, benign 401.1 Active Problem Smoking F17.200 Active Problem Other emphysema J43.8 Active Problem Hot flashes N95.1 Active Problem Borderline abnormal thyroid function test R94.6 Active Problem Skin lesion of back L98.9 Active Problem Family history of cardiovascular disease Z82.49 Active Medications Medication Code System Code Instructions Start Date End Date Status Dosage Trazodone HCl [facility] [address]-63 50 mg Orally Once a day Feb 21, 2016 0.5 - 1 tablet at bedtime as needed Results No Known Results Summary Purpose [employer] Submission
--- OUTSIDE RECORDS SUMMARY | 2019-04-01 10:49 | XMS REPORT ---
Author Author KEVIN BEJARANO [facility] Address [address] [place] [address] Care Team Providers Care Head Of Ict Name Role Phone KEVIN BEJARANO Unavailable PROBLEMS Type Condition ICD9-CM Code YQH40-ES Code Onset Dates Condition Status SNOMED Code Problem Hot flashes N95.1 Active 503087995 Problem Elevated LFTs R79.89 Active 941538991 Problem Skin lesion of back L98.9 Active 94014672 Problem Familial hypercholesterolemia E78.0 Active 546925286 Problem Smoking F17.200 Active 99160487 Problem Gastroparesis K31.84 Active 014387804 Problem Other insomnia G47.09 Active 619131869 Problem Anxiety F41.9 Active 41239737 Problem Chronic obstructive pulmonary disease, unspecified COPD type J44.9 Active 26395585 Problem Essential hypertension I10 Active 48015907 Problem Family history of cardiovascular disease Z82.49 Active 716177076 Problem Borderline abnormal thyroid function test R94.6 Active 891840265 Problem Other emphysema J43.8 Active 88976855 Problem Atrial tachycardia I47.1 Active 920920369 Problem Primary insomnia F51.01 Active 9631496 Problem Thyroiditis E06.9 Active 31987020 Problem History of thyroidectomy E89.0 Active 543896550 Problem 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 61997594 Problem Vitamin D deficiency E55.9 Active 79249623 Problem Dyspnea on exertion R06.09 Active 80410784 Problem Dyslipidemia E78.5 Active 294335689 Problem Hypertension I10 Active 90524380 Problem Insomnia, unspecified type G47.00 Active 803795670 Problem Other and unspecified hyperlipidemia E78.5 Active 20805318 Problem Facial rash R21 Active 741442694 ALLERGIES No Information ENCOUNTERS Encounter Location Date Diagnosis [facility] [place] [address] [facility] [address] [id number] [place] [id number] Dec, [facility] [place] [address] [facility] [address] [id number] [place] [id number] October, Dry mouth, unspecified R68.2 ; Pharyngitis, unspecified etiology J02.9 and Primary insomnia F51.01 [facility] [place] [address] [place] [address] [address] [id number] [place] [id number] October, [facility] [place] [address] [place] [address] [address] [id number] [place] [id number] Sep, [facility] [place] [address] [place] [address] [address] [id number] [place] 73714[address] Sep, Hemoptysis R04.2 [facility] [place] [address] [place] [address] [address] [id number] [place] [id number] Sep, Primary insomnia F51.01 [facility] [place] [address] [place] [address] [address] [id number] [place] [id number] Sep, Adverse effect of drug, initial encounter T88.7XXA [facility] [place] [address] [place] [address] [address] [id number] [place] [id number] Aug, Adverse effect of drug, initial encounter T88.7XXA [facility] [place] [address] [place] [address] [address] [id number] [place] 685135113 Aug, Primary insomnia F51.01 [facility] [place] [address] [place] [address] [address] [id number] [place] [id number] Jul, [facility] [place] [address] [place] [address] [address] [id number] [place] [id number] Jul, Primary insomnia F51.01 [facility] [address] [facility] [id number] [place] [address] Jul, [facility] [place] [address] [place] [address] [address] [id number] [place] [id number] Jul, Atrial tachycardia I47.1 [facility] [place] [address] [place] [address] [address] [id number] [place] [id number] Jul, [facility] [place] [address] [place] [address] [address] [id number] [place] 587053419 Jun, Flu-like symptoms R68.89 and Chronic obstructive pulmonary disease, unspecified COPD type J44.9 [facility] [place] [address] [facility] [address] [id number] [place] [id number] Jun, [facility] [place] [address] [facility] [address] [id number] [place] [id number] Jun, [facility] [place] [address] [facility] [address] [id number] [place] [id number] Jun, [facility] [place] [address] [place] [address] [address] [id number] [place] [id number] Jun, Epigastric pain R10.13 ; Diarrhea, unspecified type R19.7 and Non-intractable vomiting without nausea, unspecified vomiting type R11.11 [facility] [address] [facility] [id number] [place] [address] May, [facility] [place] [address] [place] [address] [address] [id number] [place] [id number] May, Chronic nonintractable headache, unspecified headache type R51 [facility] [place] [address] [place] [address] C [id number] [place] [id number] May, [facility] [place] [address] [place] [address] C [id number] [place] [id number] May, Essential hypertension I10 ; Thyroiditis E06.9 and Nonintractable episodic headache, unspecified headache type R51 [facility] [place] [address] [place] [address] C [id number] [place] [id number] Feb, Dyslipidemia E78.5 ; Vitamin D deficiency E55.9 and Atherosclerosis of left carotid artery I65.22 [facility] [place] [address] [place] [address] C [id number] [place] [id number] Jan, [facility] [address] [facility] [id number] [place] [address] Dec, [facility] [place] [address] [place] [address] C [id number] [place] [id number] Dec, Atrial tachycardia I47.1 ; History of thyroidectomy E89.0 ; Primary insomnia F51.01 and Tobacco use Z72.0 [facility] [place] [address] [place] [address] C [id number] [place] [id number] October, Galactorrhea O92.6 [facility] [place] [address] [facility] [address] [id number] [place] [id number] October, [facility] [place] [address] [facility] [address] [id number] [place] [id number] October, [facility] [place] [address] [facility] [address] [id number] [place] 7[address] October, [facility] [place] [address] [facility] [address] [id number] [place] 8[address]85[address] October, Cough R05 and Other chest pain R07.89 [facility] [place] [address] [place] [address] [address] [id number] [place] [id number] Sep, Dysuria R30.0 ; Acute cystitis without hematuria N30.00 and Chest tightness or pressure R07.89 [facility] [place] [address] [place] [address] [address] [id number] [place] [id number] Sep, [facility] [place] [address] [place] [address] [address] [id number] [place] 079877222 Sep, Acute bilateral low back pain without sciatica M54.5 [facility] [place] [address] [place] [address] [address] [id number] [place] [address] Aug, Dermatitis L30.9 ; Other insomnia G47.09 and Anxiety F41.9 [facility] [place] [address] [place] [address] [address] [id number] [place] [id number] Aug, [facility] [place] [address] [place] [address] [address] [id number] [place] 802242699 Aug, Hypertension I10 ; Dyslipidemia E78.5 and Vitamin D deficiency E55.9 [facility] [place] [address] [place] [address] [address] [id number] [place] [id number] Jun, Anxiety F41.9 and Hypertension I10 [facility] [address] [facility] [id number] [place] [address] Jun, [facility] [place] [address] [place] [address] [address] [id number] [place] 5805505[address] Jun, Anxiety F41.9 and Hypertension I10 [facility] [place] [address] [facility] [address] [id number] [place] 789[address] Jun, [facility] [place] [address] [facility] [address] [id number] [place] 719344284 May, [facility] [place] [address] [facility] [address] [id number] [place] [id number] May, Acute upper back pain M54.9 and Hypertension I10 [facility] [place] [address] [facility] [address] [id number] [place] [id number] Apr, [facility] [place] [address] [place] [address] [address] [id number] [place] [id number] Apr, Mid-back pain, acute M54.9 ; Dyslipidemia E78.5 and Hypertension I10 [facility] [place] [address] [place] [address] [address] [id number] [place] 586[address] Apr, [facility] [place] [address] [facility] [address] [id number] [place] [id number] Apr, [facility] [place] [address] [place] [address] [address] [id number] [place] [id number] Feb, Familial hypercholesterolemia E78.0 ; Occlusion and stenosis of left carotid artery I65.22 and Vitamin D deficiency E55.9 [facility] [place] [address] [place] [address] [address] [id number] [place] 100133871 Feb, [facility] [place] [address] [facility] [address] [id number] [place] 1278199[address] Feb, Fever, unspecified fever cause R50.9 and Acute non-recurrent maxillary sinusitis J01.00 [facility] [place] [address] [facility] [address] [id number] [place] 8135445[address] Jan, [facility] [place] [address] [facility] [address] [id number] [place] 966155293 Jan, [facility] [place] [address] [facility] [address] [id number] [place] 149621299 Jan, Nodule of neck R22.1 and Night sweats R61 [facility] [place] [address] [facility] [address] [id number] [place] 880638641 Dec, [facility] [place] [address] [place] [address] [address] [id number] [place], [place] [id number] Dec, [facility] [place] [address] [place] [address] [address] [id number] [place] 795189290 Nov, [facility] [place] [address] [place] [address] C [id number] [place] [id number] Nov, [facility] [place] [address] [place] [address] C [id number] [place], [place] [id number] October, Acute upper respiratory infection, unspecified J06.9 ; Other viral agents as the cause of diseases classified elsewhere B97.89 and Calculus of gallbladder without cholecystitis without obstruction K80.20 [facility] [place] [address] [place] [address] C [id number] [place] 034166813 Sep, Insomnia, unspecified type G47.00 ; Hypertension I10 and Elevated LFTs R79.89 [facility] [place] [address] [place] [address] C [id number] [place] 077383624 Sep, Bleeding after intercourse N93.0 and Dysuria R30.0 [facility] [place] [address] [place] [address] C [id number] [place] [id number] Aug, Dysuria R30.0 and Pyuria N39.0 [facility] [place] [address] [place] [address] C [id number] [place] [id number] Aug, Hypertension I10 ; Insomnia, unspecified type G47.00 and 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 [facility] [place] [address] [place] [address] C [id number] [place], [place] [id number] 12 Jul, 2015 Pain of upper extremity M79.603 ; Hypertension I10 and Pure hypercholesterolemia E78.0 [facility] [place] [address] [place] [address] C [id number] [place] [id number] 09 Jul, 2015 Physical exam, pre-employment Z02.1 ; Visit for TB skin test Z11.1 ; Facial rash R21 and 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 [facility] [place] [address] [place] [address] C [id number] [place], [place] [id number] 04 Jul, 2015 Other and unspecified hyperlipidemia E78.5 ; Borderline abnormal thyroid function test R94.6 and Vitamin D deficiency E55.[address] C [id number] [place] 824215273 Jun, 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 ; Dyslipidemia E78.5 ; Dyspnea on exertion R06.09 ; Family history of cardiovascular disease Z82.49 and Borderline abnormal thyroid function test R94.[address] C [id number] [place] 131382708 May, Other emphysema J43.8 ; Smoking F17.200 and Tobacco abuse counseling Z71.[address] C [id number] [place] [address] May, Cough R05 and Other emphysema J43.[address] C [id number] [place] [id number] Apr, [address] C [id number] [place] 232868589 Apr, Skin lesion of back L98.9 and Skin lesion L98.[address] C [id number] [place] 900705439 Apr, Skin lesion of back L98.9 and Hot flashes N95.[address] C [id number] [place] 5715575[address] Mar, Bronchitis J40 [address] C [id number] [place] [address]39[address] Mar, Acute pharyngitis, unspecified J02.9 and Upper respiratory infection with cough and congestion J06.[address] C [id number] [place] 012645658 Mar, Bronchitis J40 ; Shortness of breath R06.02 ; Encounter for screening mammogram for breast cancer Z12.31 and Yeast infection B37.[address] C [id number] [place] 941524959 Jan, Other and unspecified hyperlipidemia 272.4 and Hypothyroidism 244.[address] C [id number] [place] 598006614 Dec, [facility] [place] [address] [facility] [address] [id number] [place] 792004454 Nov, Diarrhea 787.91 and Nausea 787.02 [facility] [place] [address] [facility] [address] [id number] [place] 129699013 October, Other and unspecified hyperlipidemia 272.4 [facility] [place] [address] [facility] [address] [id number] [place] 679734771 October, Lumbago 724.2 [facility] [place] [facility] [address] [facility] [id number] [place] [address] Sep, [facility] [address] [facility] [id number] [place] [address] Sep, [facility] [address] [facility] [id number] [place] [address] Aug, [facility] [place] [address] [facility] [address] [id number] [place] [id number] Aug, [facility] [place] [address] [facility] [address] [id number] [place] [id number] Jun, [facility] [address] [facility] [id number] [place] [address] Jun, [facility] [address] [facility] [id number] [place] [address] May, [facility] [place] [facility] [address] [facility] [id number] [place] [address] May, [facility] [place] [address] [facility] [address] [id number] [place] 004389450 May, [facility] [place] [address] [facility] [address] [id number] [place] [id number] Apr, [facility] [place] [facility] [address] [facility] [id number] [facility] [place] [address] Apr, [facility] [place] [address] [facility] [address] [id number] [place] [id number] Mar, [facility] [place] [facility] [address] [id number] [place] [address] Mar, [facility] [place] [address] [id number] [place] [id number] Mar, [facility] [place] [facility] [address] [id number] [place] [address] Mar, [facility] [place] [facility] [address] [id number] [facility] [place] [address] Mar, [facility] [place] [address] [id number] [place] 165961270 Mar, [facility] [place] [address] [id number] [place] 570768101 Feb, [facility] [place] [facility] [address] [id number] [facility] [place] [address] Feb, [facility] [place] [address] [id number] [place] [id number] Jan, [facility] [place] [facility] [address] [id number] [facility] [place] [address] Jan, [facility] [place] [facility] [address] [id number] [place] [address] Jan, [facility] [place] [facility] [address] [id number] [facility] [place] [address] Jan, [facility] [place] [address] [id number] [place] 647734245 Jan, [facility] [place] [facility] [address] [id number] [place] [address] Jan, [facility] [place] [address] [id number] [place] [id number] Dec, [facility] [place] [facility] [address] [id number] [place] [address] Dec, [facility] [place] [facility] [address] [id number] [place] [address] Dec, [facility] [place] [facility] [address] [id number] [place] [address] Dec, [facility] [place] [address] [id number] [place] [id number] Dec, [facility] [place] [address] [facility] [address] [id number] [place] [id number] Dec, [facility] [address] [id number] [facility] [place] [address] Dec, [facility] [place] [address] [id number] [place] [id number] October, [facility] [address] [id number] [facility] [place] [address] October, [facility] [address] [facility] [id number] [facility] [place] [address] October, [facility] [place] [address] [facility] [address] [id number] [place] [id number] Sep, [facility] [address] [facility] [id number] [facility] [place] [address] Sep, [facility] [place] [address] [facility] [address] [id number] [place], [place] [id number] Sep, [facility] [address] [facility] [id number] [place] [address] Sep, [facility] [address] [id number] [facility] [place] [address] Aug, [facility] [place] [address] [facility] [address] [id number] [place] [id number] Aug, [facility] [place] [facility] [address] [id number] [facility] [place] [address] Jun, [facility] [address] [facility] [id number] [place] [address] Jun, [facility] [place] [address] [facility] [address] [id number] [place] [id number] Jun, [facility] [place] [address] [id number] [place] 12596[address] May, [facility] [address] [facility] [id number] [place] [address] May, [facility] [address] [facility] [id number] [place] [address] May, [facility] [address] [facility] [address] [id number] [place] [id number] May, [facility] [place] [address] [facility] [address] [id number] [place] 098017971 Apr, [facility] [address] [facility] [id number] [place] [address] Apr, [facility] [address] [facility] [id number] [place] [address] Feb, [facility] [address] [facility] [id number] [place] [id number] Feb, IMMUNIZATIONS No Known Immunizations SOCIAL HISTORY [...]
--- OUTSIDE RECORDS SUMMARY | 2019-04-01 10:49 | XMS REPORT ---
Author Author KEVIN BEJARANO [facility] Address [address] [place] [address] Care Team Providers Care Director [employer] Name Role Phone KEVIN BEJARANO Unavailable PROBLEMS Type Condition ICD9-CM Code MKW21-GP Code Onset Dates Condition Status SNOMED Code Problem Hot flashes N95.1 Active 358369837 Problem Elevated LFTs R79.89 Active 685467259 Problem Skin lesion of back L98.9 Active 55204683 Problem Familial hypercholesterolemia E78.0 Active 480063013 Problem Smoking F17.200 Active 75050034 Problem Gastroparesis K31.84 Active 777091516 Problem Other insomnia G47.09 Active 191821204 Problem Anxiety F41.9 Active 74104089 Problem Chronic obstructive pulmonary disease, unspecified COPD type J44.9 Active 80481236 Problem Essential hypertension I10 Active 38364400 Problem Family history of cardiovascular disease Z82.49 Active 631183494 Problem Borderline abnormal thyroid function test R94.6 Active 718378031 Problem Other emphysema J43.8 Active 46150181 Problem Atrial tachycardia I47.1 Active 078417558 Problem Primary insomnia F51.01 Active 5063577 Problem Thyroiditis E06.9 Active 20744413 Problem History of thyroidectomy E89.0 Active 080892719 Problem 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 93031917 Problem Vitamin D deficiency E55.9 Active 84992709 Problem Dyspnea on exertion R06.09 Active 59463676 Problem Dyslipidemia E78.5 Active 110020139 Problem Hypertension I10 Active 94370393 Problem Insomnia, unspecified type G47.00 Active 779444525 Problem Other and unspecified hyperlipidemia E78.5 Active 96430939 Problem Facial rash R21 Active 910110914 ALLERGIES No Information ENCOUNTERS Encounter Location Date Diagnosis [facility] [place] [address] [facility] C [id number] [place] [id number] October, Dry mouth, unspecified R68.2 ; Pharyngitis, unspecified etiology J02.9 and Primary insomnia F51.01 [facility] [place] [address] [place] [address] [address] [id number] [place] [id number] October, [facility] [place] [address] [place] [address] [address] [id number] [place] [id number] Sep, [facility] [place] [address] [place] [address] [address] [id number] [place] [id number] Sep, Hemoptysis R04.2 [facility] [place] [address] [place] [address] [address] [id number] [place] [address] Sep, Primary insomnia F51.01 [facility] [place] [address] [place] [address] [address] [id number] [place] [id number] Sep, Adverse effect of drug, initial encounter T88.7XXA [facility] [place] [address] [place] [address] [address] [id number] [place] [address] Aug, Adverse effect of drug, initial encounter T88.7XXA [facility] [place] [address] [place] [address] [address] [id number] [place] 8058433[address] Aug, Primary insomnia F51.01 [facility] [place] [address] [place] [address] [address] [id number] [place] [id number] Jul, [facility] [place] [address] [place] [address] [address] [id number] [place] [id number] Jul, Primary insomnia F51.01 [facility] [place] [address] [facility] [id number] [place] [address] Jul, [facility] [place] [address] [place] [address] [address] [id number] [place] 16[address] Jul, Atrial tachycardia I47.1 [facility] [place] [address] [place] [address] [address] [id number] [place] [id number] Jul, [facility] [place] [address] [place] [address] [address] [id number] [place] 094[address] Jun, Flu-like symptoms R68.89 and Chronic obstructive pulmonary disease, unspecified COPD type J44.9 [facility] [place] [address] [place] [address] [address] [id number] [place] [id number] Jun, [facility] [place] [address] [facility] [address] [id number] [place] [address] Jun, [facility] [place] [address] [facility] [id number] [place] [id number] Jun, [facility] [place] [address] [place] [address] [address] [id number] [place] 867[address] Jun, Epigastric pain R10.13 ; Diarrhea, unspecified type R19.7 and Non-intractable vomiting without nausea, unspecified vomiting type R11.11 [facility] [place] [address] [facility] [id number] [place] [address] May, [facility] [place] [address] [place] [address] C [id number] [place] [id number] May, Chronic nonintractable headache, unspecified headache type R51 [facility] [place] [address] [place] [address] C [id number] [place] [id number] May, [facility] [place] [address] [place] [address] C [id number] [place] [id number] May, Essential hypertension I10 ; Thyroiditis E06.9 and Nonintractable episodic headache, unspecified headache type R51 [facility] [place] [address] [place] [address] C [id number] [place] 428[address]8664 Feb, Dyslipidemia E78.5 ; Vitamin D deficiency E55.9 and Atherosclerosis of left carotid artery I65.22 [facility] [place] [address] [place] [address] C [id number] [place] [id number] Jan, [facility] [place] [address] [facility] [id number] [place] [address] Dec, [facility] [place] [address] [place] [address] C [id number] [place] 48[address]507 Dec, Atrial tachycardia I47.1 ; History of thyroidectomy E89.0 ; Primary insomnia F51.01 and Tobacco use Z72.0 [facility] [place] [address] [place] [address] [address] [id number] [place] [address] October, Galactorrhea O92.6 [facility] [address] [place] [address] C [id number] [place] [id number] October, [facility] [place] [address] [facility] [address] [id number] [place] [id number] October, [facility] [place] [address] [facility] [address] [id number] [place] [address] October, [facility] [place] [address] [place] [address] [address] [id number] [place] 708[address] October, Cough R05 and Other chest pain R07.89 [facility] [place] [address] [place] [address] [address] [id number] [place] 8[address] Sep, Dysuria R30.0 ; Acute cystitis without hematuria N30.00 and Chest tightness or pressure R07.89 [facility] [place] [address] [place] [address] [address] [id number] [place] 639175742 Sep, [facility] [place] [address] [place] [address] [address] [id number] [place] 2948[address]878 Sep, Acute bilateral low back pain without sciatica M54.5 [facility] [place] [address] [place] [address] [address] [id number] [place] [address] Aug, Dermatitis L30.9 ; Other insomnia G47.09 and Anxiety F41.9 [facility] [place] [address] [place] [address] [address] [id number] [place] [address] Aug, [facility] [place] [address] [place] [address] [address] [id number] [place] 069853649 Aug, Hypertension I10 ; Dyslipidemia E78.5 and Vitamin D deficiency E55.9 [facility] [place] [address] [place] [address] [address] [id number] [place] 413[address]12 Jun, Anxiety F41.9 and Hypertension I10 [facility] [place] [address] [facility] [id number] [place] [address] Jun, [facility] [place] [address] [place] [address] [address] [id number] [place] 134341272 Jun, Anxiety F41.9 and Hypertension I10 [facility] [place] [address] [place] [address] [address] [id number] [place] [id number] Jun, [facility] [place] [address] [facility] [address] [id number] [place] 575337561 May, [facility] [place] [address] [facility] [address] [id number] [place] 1239[address]194 May, Acute upper back pain M54.9 and Hypertension I10 [facility] [place] [address] [facility] [address] [id number] [place] 4[address] Apr, [facility] [place] [address] [facility] [address] [id number] [place] 00[address] Apr, Mid-back pain, acute M54.9 ; Dyslipidemia E78.5 and Hypertension I10 [facility] [place] [address] [place] [address] [address] [id number] [place] 946152451 Apr, [facility] [place] [address] [facility] [address] [id number] [place] 58607[address] Apr, [facility] [place] [address] [facility] [address] [id number] [place] [id number] Feb, Familial hypercholesterolemia E78.0 ; Occlusion and stenosis of left carotid artery I65.22 and Vitamin D deficiency E55.9 [facility] [place] [address] [place] [address] [address] [id number] [place] 1758[address]192 Feb, [facility] [place] [address] [place] [address] [address] [id number] [place] 5970[address] Feb, Fever, unspecified fever cause R50.9 and Acute non-recurrent maxillary sinusitis J01.00 [facility] [place] [address] [facility] [address] [id number] [place] 7660[address]106 Jan, [facility] [place] [address] [facility] [address] [id number] [place] 941304192 Jan, [facility] [place] [address] [facility] [address] [id number] [place] 6430[address] Jan, Nodule of neck R22.1 and Night sweats R61 [facility] [place] [address] [facility] [address] [id number] [place] [id number] Dec, [facility] [place] [address] [facility] [address] [id number] [place] [address]85[address]224[address] Dec, [facility] [place] [address] [place] [address] C [id number] [place] 768131387 Nov, [facility] [place] [address] [place] [address] C [id number] [place] [id number] Nov, [facility] [place] [address] [place] [address] C [id number] [place] 966270555 October, Acute upper respiratory infection, unspecified J06.9 ; Other viral agents as the cause of diseases classified elsewhere B97.89 and Calculus of gallbladder without cholecystitis without obstruction K80.20 [facility] [place] [address] [place] [address] C [id number] [place] 625794685 Sep, Insomnia, unspecified type G47.00 ; Hypertension I10 and Elevated LFTs R79.89 [facility] [address] [place] [address] C [id number] [place] 775523290 Sep, Bleeding after intercourse N93.0 and Dysuria R30.0 [facility] [place] [address] [place] [address] C [id number] [place] 597757344 Aug, Dysuria R30.0 and Pyuria N39.0 [facility] [place] [address] [place] [address] C [id number] [place] 528051592 Aug, Hypertension I10 ; Insomnia, unspecified type G47.00 and 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 [facility] [place] [address] [place] [address] C [id number] [place] [id number] 12 Jul, 2015 Pain of upper extremity M79.603 ; Hypertension I10 and Pure hypercholesterolemia E78.0 [facility] [place] [address] [place] [address] C [id number] [place] [id number] 09 Jul, 2015 Physical exam, pre-employment Z02.1 ; Visit for TB skin test Z11.1 ; Facial rash R21 and 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 [facility] [place] [address] [place] [address] C [id number] [place] [id number] 04 Jul, 2015 Other and unspecified hyperlipidemia E78.5 ; Borderline abnormal thyroid function test R94.6 and Vitamin D deficiency E55.9 [facility] [address] C [id number] [place] [id number] Jun, 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 ; Dyslipidemia E78.5 ; Dyspnea on exertion R06.09 ; Family history of cardiovascular disease Z82.49 and Borderline abnormal thyroid function test R94.[address] C [id number] [place] [id number] May, Other emphysema J43.8 ; Smoking F17.200 and Tobacco abuse counseling Z71.[address] C [id number] [place] [id number] May, Cough R05 and Other emphysema J43.[address] [id number] [place] [id number] Apr, [address] C [id number] [place] 1270[address] Apr, Skin lesion of back L98.9 and Skin lesion L98.[address] [id number] [place] [id number] Apr, Skin lesion of back L98.9 and Hot flashes N95.[address] C [id number] [place] [id number] Mar, Bronchitis J40 [address] [id number] [place] [id number] Mar, Acute pharyngitis, unspecified J02.9 and Upper respiratory infection with cough and congestion J06.[address] C [id number] [place] [id number] Mar, Bronchitis J40 ; Shortness of breath R06.02 ; Encounter for screening mammogram for breast cancer Z12.31 and Yeast infection B37.[address] C [id number] [place] [id number] Jan, Other and unspecified hyperlipidemia 272.4 and Hypothyroidism 244.[address] [id number] [place] [id number] Dec, [address] [id number] [place] 896[address]1301 Nov, Diarrhea 787.91 and Nausea 787.02 [facility] [place] [address] [facility] [address] [id number] [place] 6287[address]152 October, Other and unspecified hyperlipidemia 272.4 [facility] [place] [address] [facility] [address] [id number] [place] 0010[address]169 October, Lumbago 724.2 [facility] [place] [facility] [address] [facility] [id number] [place] [address] Sep, [facility] [address] [facility] [id number] [place] [address] Sep, [facility] [address] [facility] [id number] [place] [address] Aug, [facility] [place] [address] [facility] [address] [id number] [place] [id number] Aug, [facility] [place] [address] [facility] [address] [id number] [place] [id number] Jun, [facility] [address] [facility] [id number] [place] [address] Jun, [facility] [address] [facility] [id number] [place] [address] May, [facility] [address] [facility] [id number] [place] [address] May, [facility] [place] [address] [facility] [address] [id number] [place] [id number] May, [facility] [place] [address] [facility] [address] [id number] [place] [id number] Apr, [facility] [address] [facility] [id number] [place] [address] Apr, [facility] [place] [address] [facility] [address] [id number] [place] [id number] Mar, [facility] [address] [facility] [id number] [place] [address] Mar, [facility] [place] [address] [id number] [place] 520299180 Mar, [facility] [place] [facility] [address] [id number] [place] [address] Mar, [facility] [place] [facility] [address] [id number] [place] [address] Mar, [facility] [place] [address] [id number] [place] [address]1411 Mar, [facility] [place] [address] [id number] [place] 128067426 Feb, [facility] [place] [facility] [address] [id number] [place] [address] Feb, [facility] [place] [address] [id number] [place] 522151714 Jan, [facility] [place] [facility] [address] [id number] [place] [address] Jan, [facility] [place] [facility] [address] [id number] [facility] [place] [address] Jan, [facility] [place] [facility] [address] [facility] [id number] [facility] [place] [address] Jan, [facility] [place] [address] [id number] [place] [id number] Jan, [facility] [place] [facility] [address] [id number] [facility] [place] [address] Jan, [facility] [place] [address] [id number] [place] [id number] Dec, [facility] [place] [facility] [address] [id number] [facility] [place] [address] Dec, [facility] [place] [facility] [address] [facility] [id number] [facility] [place] [address] Dec, [facility] [place] [facility] [address] [facility] [id number] [place] [address] Dec, [facility] [place] [address] [id number] [place] 224802560 Dec, [facility] [place] [address] [id number] [place] [id number] Dec, [facility] [address] [id number] [place] [address] Dec, [facility] [place] [address] [id number] [place] 793785443 October, [facility] [address] [id number] [place] [address] October, [facility] [address] [id number] [place] [address] October, [facility] [place] [address] [facility] [address] [id number] [place] 656936554 Sep, [facility] [place] [facility] [address] [facility] [id number] [facility] [place] [address] Sep, [facility] [place] [address] [facility] [address] [id number] [place] 999936603 Sep, [facility] [address] [facility] [id number] [facility] [place] [address] Sep, [facility] [address] [facility] [id number] [facility] [place] [address] Aug, [facility] [place] [address] [facility] [address] [id number] [place] 561581410 Aug, [facility] [address] [facility] [id number] [facility] [place] [address] Jun, [facility] [address] [id number] [place] [address] Jun, [facility] [place] [address] [id number] [place] 427298637 Jun, [facility] [place] [address] [id number] [place] 944884036 May, [facility] [address] [facility] [id number] [place] [address] May, [facility] [place] [address] [facility] [id number] [place] [address] May, [facility] [place] [address] [facility] [id number] [place] [id number] May, [facility] [place] [address] [facility] [address] [id number] [place] [id number] Apr, [facility] [place] [address] [facility] [id number] [place] [address] Apr, [facility] [place] [address] [facility] [id number] [place] [address] Feb, [facility] [address] [facility] [id number] [place] [address] Feb, IMMUNIZATIONS No Known Immunizations SOCIAL HISTORY Never Assessed REASON FOR VISIT Lab (walk-in) per cardiology...........................lwileyrn PLAN OF CARE Activity Details Follow Up prn Reason: VITAL SIGNS MEDICATIONS No Known Medications RESULTS No Results PROCEDURES Procedure Date Ordered Result Body Site LIPID PANEL Aug 01, 2017 COMPREHEN METABOLIC PANEL Aug 01, 2017 VENIPUNCT, ROUTINE* Aug 01, 2017 INSTRUCTIONS MEDICATIONS ADMINISTERED No Known Medications [...]
--- OUTSIDE RECORDS SUMMARY | 2019-04-01 10:50 | XMS REPORT ---
Author Author Rodney Torres Organization [employer] Address Unknown Phone Unavailable Care Team Providers Care Clinical Outcomes Manager Name Role Phone Rodney Torres CP Unavailable Allergies No Known Allergies Problems Problem Type Condition Code Onset Dates Condition Status Problem POLANCO 571.8 Active Problem Hemorrhoids, internal w/o complication 455.0 Active Problem Diverticulosis, colon, w/o hemorrhage (.12/w/hem) 562.10 Active Problem RUQ abdominal pain R10.11 Active Problem Gastroparesis K31.84 Active Problem Diarrhea R19.7 Active Problem Constipation, unspecified 564.00 Active Problem Screening, colon CA V76.51 Active Problem GERD (gastroesophageal reflux disease) K21.9 Active Problem Constipation K59.00 Active Problem Liver function test, abnormal 790.4 Active Problem Bloating 787.3 Active Problem GERD 530.81 Active Problem Acute gastritis without mention of hemorrhage 535.00 Active Medications No Known Medications Results No Known Results Summary Purpose [employer] Submission
--- OUTSIDE RECORDS SUMMARY | 2019-04-01 10:50 | XMS REPORT ---
Author Author [facility]ARA MICHEL [facility] Address [address] [place] [address] Care Team Providers Care Tractor Driver Teamster Name Role Phone MICHEL, SARA Unavailable PROBLEMS Type Condition ICD9-CM Code JDN84-OZ Code Onset Dates Condition Status SNOMED Code Problem Insomnia, unspecified type G47.00 Active 658147225 Problem Familial hypercholesterolemia E78.0 Active 888255240 Problem Elevated LFTs R79.89 Active 567860051 Problem Primary insomnia F51.01 Active 5749126 Problem Smoking F17.200 Active 00295639 Problem History of thyroidectomy E89.0 Active 327720964 Problem Skin lesion of back L98.9 Active 08320840 Problem Hot flashes N95.1 Active 718379322 Problem Anxiety F41.9 Active 00577570 Problem Gastroparesis 536.3 Active 642171786 Problem Atrial tachycardia I47.1 Active 038784595 Problem Other insomnia G47.09 Active 696729099 Problem Family history of cardiovascular disease Z82.49 Active 731943622 Problem 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
--- OUTSIDE RECORDS SUMMARY | 2019-04-01 10:50 | XMS REPORT ---
Author Author MARCIANO MANCIA [facility] Address [address] [place] [address] Care Team Providers Care Esthetic Dermatologist Name Role Phone GAVINOMARCIANO Unavailable PROBLEMS Type Condition ICD9-CM Code [id number] Code Onset Dates Condition Status SNOMED Code Problem Nonspecific low blood pressure reading 796.3 Active 162063338 Problem Nonspecific abnormal results of liver function study 794.8 Active 487603397 Problem Essential hypertension, benign 401.1 Active 1090571 Problem Other and unspecified hyperlipidemia 272.4 Active 35252062 Problem Counseling on substance use and abuse V65.42 Active 676318682 Problem Insomnia, unspecified type G47.00 Active 722538786 Problem Hot flashes N95.1 Active 344895122 Problem Elevated LFTs R79.89 Active 511018143 Problem Skin lesion of back L98.9 Active 35836034 Problem Familial hypercholesterolemia E78.0 Active 276772417 Problem Lumbago 724.2 Active 878981747 Problem Other nonspecific abnormal finding 796.9 Active 141946549 Problem Primary insomnia F51.01 Active 3994501 Problem History of thyroidectomy E89.0 Active 580594753 Problem Borderline abnormal thyroid function test R94.6 Active 926372299 Problem Smoking F17.200 Active 66176330 Problem Other emphysema J43.8 Active 16110442 Problem Anxiety F41.9 Active 23666111 Problem Gastroparesis 536.3 Active 073393050 Problem Atrial tachycardia I47.1 Active 447357577 Problem Other insomnia G47.09 Active 085768157 Problem Dyspnea on exertion R06.09 Active 82739149 Problem Dyslipidemia E78.5 Active 626242346 Problem Family history of cardiovascular disease Z82.49 Active 314136664 Problem 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 65751605 Problem Facial rash R21 Active 512066047 Problem Hypertension I10 Active 60616203 Problem Vitamin D deficiency E55.9 Active 51211044 Problem Other and unspecified hyperlipidemia E78.5 Active 26925922 ALLERGIES Substance Reaction Event Type Date Status Promethazine VC/Codeine stomach upset Drug Allergy Jun, Active Fentanyl anaphylaxis Drug Allergy Jun, Active SOCIAL HISTORY No smoking Hx information available PLAN OF CARE Activity Details Follow Up 4 weeks with Annette Luther Reason:anxiety/blood pressue VITAL SIGNS Height 65 in 2016-06-29 Weight 141.7 lbs 2016-06-29 Temperature 98.6 degrees Fahrenheit 2016-06-29 Heart Rate 84 bpm 2016-06-29 Respiratory Rate 16 2016-06-29 BMI 23.58 kg/m2 2016-06-29 Blood pressure systolic 140 mmHg 2016-06-29 Blood pressure diastolic 82 mmHg 2016-06-29 MEDICATIONS Medication Instructions Dosage Frequency Start Date End Date Duration Status Aspirin 81 mg take 1 tablet (81 mg) by oral route once daily Mar, Active pantoprazole 40 mg take 1 tablet (40 mg) by oral route 2 times per day Mar, Active Dicyclomine HCl 20 mg Orally 2 times a day 1 tablet 12h Active Hydrochlorothiazide 12.5 MG Orally Once a day 1 tablet 24h Jun, 30 day(s) Active Sucralfate 1 GM Orally Twice a day 1 tablet on an empty stomach 12h Active Lisinopril 10 mg Orally once a day 1/2 tablet 24h Jun, Active Zoloft 50 mg Orally Once a day 1 tablet 24h Jun, Active D3-50 27738 UNIT Active Crestor 10 MG Orally Once a day 1 tablet 24h Active Zetia 10 mg take 1 tablet (10 mg) by oral route once daily Jun, Active Fish Oil 1000 MG Orally Once a day 1 capsule 24h Active Spiriva Respimat 2.5 MCG/ACT Inhalation Once a day 2 puffs 24h Active RESULTS No Results PROCEDURES Procedure Date Ordered Related Diagnosis Body Site Office Visit, Est Pt., Level 3 Jun 29, 2016 IMMUNIZATIONS No Known Immunizations
--- OUTSIDE RECORDS SUMMARY | 2019-04-01 10:50 | XMS REPORT ---
Author Author SARA MICHEL [facility] Address [address] [place] [address] Care Team Providers Care Student Union Consultant Name Role Phone MICHEL, SARA Unavailable PROBLEMS Type Condition ICD9-CM Code [id number] Code Onset Dates Condition Status SNOMED Code Problem Insomnia, unspecified type G47.00 Active 918338325 Problem Familial hypercholesterolemia E78.0 Active 487394239 Problem Elevated LFTs R79.89 Active 708293633 Problem Primary insomnia F51.01 Active 4823744 Problem Smoking F17.200 Active 33227241 Problem History of thyroidectomy E89.0 Active 805986319 Problem Skin lesion of back L98.9 Active 52159370 Problem Hot flashes N95.1 Active 496327686 Problem Anxiety F41.9 Active 63941060 Problem Gastroparesis 536.3 Active 687924850 Problem Atrial tachycardia I47.1 Active 703760555 Problem Other insomnia G47.09 Active 219056880 Problem Family history of cardiovascular disease Z82.49 Active 676971141 Problem 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
--- OUTSIDE RECORDS SUMMARY | 2019-04-01 10:50 | XMS REPORT ---
Author Author SARA MICHEL [place] Address [address] [place] [address] Care Team Providers Care Construction Trades Teacher Name Role Phone MICHELSARA Unavailable PROBLEMS Type Condition ICD9-CM Code [id number] Code Onset Dates Condition Status SNOMED Code Problem Insomnia, unspecified type G47.00 Active 611129576 Problem Familial hypercholesterolemia E78.0 Active 530988687 Problem Elevated LFTs R79.89 Active 280001164 Problem Primary insomnia F51.01 Active 7175145 Problem Smoking F17.200 Active 54743924 Problem History of thyroidectomy E89.0 Active 278776146 Problem Skin lesion of back L98.9 Active 81225349 Problem Hot flashes N95.1 Active 147269985 Problem Anxiety F41.9 Active 29894425 Problem Gastroparesis 536.3 Active 799327751 Problem Atrial tachycardia I47.1 Active 305434899 Problem Other insomnia G47.09 Active 118857761 Problem Family history of cardiovascular disease Z82.49 Active 015346923 Problem 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 91899522 Problem Other emphysema J43.8 Active 41231857 Problem Borderline abnormal thyroid function test R94.6 Active 497910358 Problem Vitamin D deficiency E55.9 Active 28301044 Problem Other and unspecified hyperlipidemia E78.5 Active 01016488 Problem Dyspnea on exertion R06.09 Active 28908506 Problem Facial rash R21 Active 216418924 Problem Dyslipidemia E78.5 Active 468458823 Problem Hypertension I10 Active 94514844 ALLERGIES Substance Reaction Event Type Date Status Promethazine VC/Codeine stomach upset Drug Allergy October, Active Fentanyl anaphylaxis Drug Allergy October, Active SOCIAL HISTORY Never Assessed PLAN OF CARE Activity Details Follow Up prn, 2 - 3 Days Reason: VITAL SIGNS Height 65 in 2016-11-19 Weight 141.6 lbs 2016-11-19 Temperature 98.2 degrees Fahrenheit 2016-11-19 Heart Rate 88 bpm 2016-11-19 Respiratory Rate 16 2016-11-19 BMI 23.56 kg/m2 2016-11-19 Blood pressure systolic 116 mmHg 2016-11-19 Blood pressure diastolic 88 mmHg 2016-11-19 MEDICATIONS Medication Instructions Dosage Frequency Start Date End Date Duration Status Vascepa Orally Twice a day 2 capsules with meals 12h Active pantoprazole 40 mg take 1 tablet (40 mg) by oral route 2 times per day Mar, Active Triamcinolone & Emollient 0.1 % Externally Twice a day 1 null 12h Aug, Active Tizanidine HCl 2 MG Orally Three times a day 1 tablet as needed 8h Sep, Active Dicyclomine HCl 20 mg Orally 2 times a day 1 tablet 12h Active Sucralfate 1 GM Orally Twice a day 1 tablet on an empty stomach 12h Active Fish Oil 1000 MG Orally Once a day 1 capsule 24h Active HydrOXYzine HCl 50 mg Orally at bedtime 1 tablet at bedtime Aug, Active Zetia 10 mg take 1 tablet (10 mg) by oral route once daily Jun, Active Aspirin 81 mg take 1 tablet (81 mg) by oral route once daily Mar, Active D3-50 72638 UNIT Active Hydrochlorothiazide 12.5 MG Orally Once a day 1 tablet 24h 30 Active Zoloft 50 mg Orally Once a day 1 tablet 24h Jun, Active Crestor 10 MG Orally Once a day 1 tablet 24h Active Lisinopril 10 MG 1 tablet 2 times a day Orally Active Spiriva Respimat 2.5 MCG/ACT Inhalation Once a day 2 puffs 24h Active RESULTS Name Result Date Reference Range TSH 2016-11-19 TSH 1.620 0.450-4.500 PROLACTIN 2016-11-19 Prolactin 7.4 4.8-23.3 Mammogram Dx, Left 2016-11-25 Mammogram Dx, Bilateral 2016-11-25 PROCEDURES Procedure Date Ordered Result Body Site VENIPUNCT, ROUTINE* November 19, 2016 ASSAY THYROID STIM HORMONE November 19, 2016 ASSAY OF PROLACTIN November 19, 2016 IMMUNIZATIONS No Known Immunizations MEDICAL (GENERAL) HISTORY [...]
--- OUTSIDE RECORDS SUMMARY | 2019-04-01 10:50 | XMS REPORT ---
Author Author DELORES KIRKLAND [facility] Address [address] [place] [address] Care Team Providers Care Business Management Specialist Name Role Phone DELORES KIRKLAND Unavailable PROBLEMS Type Condition ICD9-CM Code [id number] Code Onset Dates Condition Status SNOMED Code Problem Nonspecific low blood pressure reading 796.3 Active 569619869 Problem Counseling on substance use and abuse V65.42 Active 643291587 Problem Essential hypertension, benign 401.1 Active 8250046 Problem Other and unspecified hyperlipidemia 272.4 Active 25126823 Problem Nonspecific abnormal results of liver function study 794.8 Active 141899282 Problem Insomnia, unspecified type G47.00 Active 949575332 Problem Hot flashes N95.1 Active 242627604 Problem Elevated LFTs R79.89 Active 182113106 Problem Skin lesion of back L98.9 Active 02303248 Problem Familial hypercholesterolemia E78.0 Active 942159500 Problem Lumbago 724.2 Active 490354121 Problem Gastroparesis 536.3 Active 108334998 Problem Atrial tachycardia I47.1 Active 474753311 Problem History of thyroidectomy E89.0 Active 704672151 Problem Borderline abnormal thyroid function test R94.6 Active 808862382 Problem Other emphysema J43.8 Active 44461615 Problem Smoking F17.200 Active 74515061 Problem Anxiety F41.9 Active 22365230 Problem Other nonspecific abnormal finding 796.9 Active 505036938 Problem Primary insomnia F51.01 Active 3710057 Problem Other insomnia G47.09 Active 922589145 Problem Dyslipidemia E78.5 Active 714555704 Problem 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
--- OUTSIDE RECORDS SUMMARY | 2019-04-01 10:50 | XMS REPORT ---
Author Author KEVIN BEJARANO Organization [facility] Address [address] [place] [address] Care Team Providers Care Mother'S Helper Name Role Phone KEVIN BEJARANO Unavailable PROBLEMS Type Condition ICD9-CM Code ISY40-ZL Code Onset Dates Condition Status SNOMED Code Problem Hot flashes N95.1 Active 080436382 Problem Elevated LFTs R79.89 Active 041334050 Problem Skin lesion of back L98.9 Active 23151831 Problem Familial hypercholesterolemia E78.0 Active 399673453 Problem Smoking F17.200 Active 65828593 Problem Gastroparesis K31.84 Active 009104864 Problem Other insomnia G47.09 Active 425966244 Problem Anxiety F41.9 Active 11568063 Problem Chronic obstructive pulmonary disease, unspecified COPD type J44.9 Active 89248471 Problem Essential hypertension I10 Active 72424185 Problem Family history of cardiovascular disease Z82.49 Active 582491431 Problem Borderline abnormal thyroid function test R94.6 Active 692276645 Problem Other emphysema J43.8 Active 65777265 Problem Atrial tachycardia I47.1 Active 572643302 Problem Primary insomnia F51.01 Active 6608728 Problem Thyroiditis E06.9 Active 59465088 Problem History of thyroidectomy E89.0 Active 050346624 Problem 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 74324921 Problem Vitamin D deficiency E55.9 Active 57277174 Problem Dyspnea on exertion R06.09 Active 80858689 Problem Dyslipidemia E78.5 Active 657539817 Problem Hypertension I10 Active 57755486 Problem Insomnia, unspecified type G47.00 Active 750671337 Problem Other and unspecified hyperlipidemia E78.5 Active 91745459 Problem Facial rash R21 Active 464740232 ALLERGIES Substance Reaction Event Type Date Status Promethazine VC/Codeine stomach upset Drug Allergy May, Active Fentanyl anaphylaxis Drug Allergy May, Active ENCOUNTERS Encounter Location Date Diagnosis [facility] [place] [address] [facility] C [id number] [place] [id number] October, Dry mouth, unspecified R68.2 ; Pharyngitis, unspecified etiology J02.9 and Primary insomnia F51.01 [facility] [place] [address] [place] [address] [address] [id number] [place] [id number] October, [facility] [place] [address] [place] [address] [address] [id number] [place] [id number] Sep, [facility] [place] [address] [place] [address] [address] [id number] [place] 775158372 Sep, Hemoptysis R04.2 [facility] [place] [address] [place] [address] [address] [id number] [place] 6847[address] Sep, Primary insomnia F51.01 [facility] [place] [address] [place] [address] [address] [id number] [place] 730796461 Sep, Adverse effect of drug, initial encounter T88.7XXA [facility] [place] [address] [place] [address] [address] [id number] [place] 995642316 Aug, Adverse effect of drug, initial encounter T88.7XXA [facility] [place] [address] [place] [address] [address] [id number] [place] 816091424 Aug, Primary insomnia F51.01 [facility] [place] [address] [place] [address] [address] [id number] [place] 137117559 Jul, [facility] [place] [address] [place] [address] [address] [id number] [place] 720958931 Jul, Primary insomnia F51.[address] [facility] [address] [facility] [id number] [place] [address] Jul, [facility] [place] [address] [place] [address] [address] [id number] [place] 632234281 Jul, Atrial tachycardia I47.1 [facility] [place] [address] [place] [address] [address] [id number] [place] [id number] Jul, [facility] [place] [address] [place] [address] [address] [id number] [place] [address]869901 Jun, Flu-like symptoms R68.89 and Chronic obstructive pulmonary disease, unspecified COPD type J44.9 [facility] [place] [address] [facility] [address] [id number] [place] [address] Jun, [facility] [place] [address] [facility] [address] [id number] [place] [id number] Jun, [facility] [place] [address] [facility] [address] [id number] [place] [id number] Jun, [facility] [place] [address] [place] [address] C [id number] [place] [address]89[address]51 Jun, Epigastric pain R10.13 ; Diarrhea, unspecified type R19.7 and Non-intractable vomiting without nausea, unspecified vomiting type R11.11 [facility] [address] [facility] [id number] [place] [address] May, [facility] [place] [address] [place] [address] C [id number] [place] [id number] May, Chronic nonintractable headache, unspecified headache type R51 [facility] [place] [address] [place] [address] C [id number] [place], [place] 141368131 May, [facility] [place] [address] [place] [address] C [id number] [place] [id number] May, Essential hypertension I10 ; Thyroiditis E06.9 and Nonintractable episodic headache, unspecified headache type R51 [facility] [place] [address] [place] [address] C [id number] [place] [address]70[address]7915 Feb, Dyslipidemia E78.5 ; Vitamin D deficiency E55.9 and Atherosclerosis of left carotid artery I65.22 [facility] [place] [address] [place] [address] C [id number] [place] 84[address]10175 Jan, [facility] [address] [facility] [id number] [place] [address] Dec, [facility] [place] [address] [place] [address] C [id number] [place] 385355602 Dec, Atrial tachycardia I47.1 ; History of thyroidectomy E89.0 ; Primary insomnia F51.01 and Tobacco use Z72.0 [facility] [place] [address] [place] [address] C [id number] [place] [address] October, Galactorrhea O92.6 [facility] [place] [address] [place] [address] [address] [id number] [place] 717894097 October, [facility] [place] [address] [facility] [address] [id number] [place] [address] October, [facility] [place] [address] [place] [address] [address] [id number] [place] 889116622 October, [facility] [place] [address] [place] [address] [address] [id number] [place] 7374[address]407 October, Cough R05 and Other chest pain R07.89 [facility] [place] [address] [place] [address] [address] [id number] [place] 869820628 Sep, Dysuria R30.0 ; Acute cystitis without hematuria N30.00 and Chest tightness or pressure R07.89 [facility] [place] [address] [place] [address] [address] [id number] [place] [id number] Sep, [facility] [place] [address] [place] [address] [address] [id number] [place] [address] Sep, Acute bilateral low back pain without sciatica M54.5 [facility] [place] [address] [place] [address] [address] [id number] [place] [address] Aug, Dermatitis L30.9 ; Other insomnia G47.09 and Anxiety F41.9 [facility] [place] [address] [place] [address] [address] [id number] [place] [address]67 Aug, [facility] [place] [address] [place] [address] [address] [id number] [place] 145294127 Aug, Hypertension I10 ; Dyslipidemia E78.5 and Vitamin D deficiency E55.9 [facility] [place] [address] [place] [address] [address] [id number] [place] [address]3587 Jun, Anxiety F41.9 and Hypertension I10 [facility] [address] [facility] [id number] [place] [address] Jun, [facility] [place] [address] [place] [address] [address] [id number] [place] [address] Jun, Anxiety F41.9 and Hypertension I10 [facility] [place] [address] [facility] [address] [id number] [place] 100977778 Jun, [facility] [place] [address] [facility] [address] [id number] [place] 9479330[address] May, [facility] [place] [address] [facility] [address] [id number] [place] 4398375[address] May, Acute upper back pain M54.9 and Hypertension I10 [facility] [place] [address] [facility] [address] [id number] [place] 651895067 Apr, [facility] [place] [address] [place] [address] [address] [id number] [place] 308162303 Apr, Mid-back pain, acute M54.9 ; Dyslipidemia E78.5 and Hypertension I10 [facility] [place] [address] [place] [address] [address] [id number] [place] 717856844 Apr, [facility] [place] [address] [place] [address] [address] [id number] [place] 616943968 Apr, [facility] [place] [address] [place] [address] [address] [id number] [place] 432[address]20 Feb, Familial hypercholesterolemia E78.0 ; Occlusion and stenosis of left carotid artery I65.22 and Vitamin D deficiency E55.9 [facility] [place] [address] [place] [address] [address] [id number] [place] 79[address] Feb, [facility] [place] [address] [facility] [address] [id number] [place] 732378584 Feb, Fever, unspecified fever cause R50.9 and Acute non-recurrent maxillary sinusitis J01.00 [facility] [place] [address] [place] [address] [address] [id number] [place] 443599263 Jan, [facility] [place] [address] [facility] [address] [id number] [place] [id number] Jan, [facility] [place] [address] [place] [address] [address] [id number] [place] 063087732 Jan, Nodule of neck R22.1 and Night sweats R61 [facility] [place] [address] [facility] [address] [id number] [place] 552509885 Dec, [facility] [place] [address] [place] [address] [address] [id number] [place] 9[address]71 Dec, [facility] [place] [address] [place] [address] [address] [id number] [place] 144130712 Nov, [facility] [place] [address] [place] [address] C [id number] [place] 091457416 Nov, [facility] [place] [address] [place] [address] C [id number] [place] 85[address]15 October, Acute upper respiratory infection, unspecified J06.9 ; Other viral agents as the cause of diseases classified elsewhere B97.89 and Calculus of gallbladder without cholecystitis without obstruction K80.20 [facility] [place] [address] [place] [address] C [id number] [place] 766438342 Sep, Insomnia, unspecified type G47.00 ; Hypertension I10 and Elevated LFTs R79.89 [facility] [place] [address] [place] [address] C [id number] [place] 222240986 Sep, Bleeding after intercourse N93.0 and Dysuria R30.0 [facility] [place] [address] [place] [address] C [id number] [place] 076[address]1702 Aug, Dysuria R30.0 and Pyuria N39.0 [facility] [place] [address] [place] [address] C [id number] [place] 536034740 Aug, Hypertension I10 ; Insomnia, unspecified type G47.00 and 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 [facility] [place] [address] [place] [address] C [id number] [place] 875220788 12 Jul, 2015 Pain of upper extremity M79.603 ; Hypertension I10 and Pure hypercholesterolemia E78.0 [facility] [place] [address] [place] [address] C [id number] [place] 036032752 09 Jul, 2015 Physical exam, pre-employment Z02.1 ; Visit for TB skin test Z11.1 ; Facial rash R21 and 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 [facility] [place] [address] [place] [address] C [id number] [place] 184781576 04 Feb, 2016 Other and unspecified hyperlipidemia E78.5 ; Borderline abnormal thyroid function test R94.6 and Vitamin D deficiency E55.[address] C [id number] [place] 382554338 Jun, 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 ; Dyslipidemia E78.5 ; Dyspnea on exertion R06.09 ; Family history of cardiovascular disease Z82.49 and Borderline abnormal thyroid function test R94.[address] C [id number] [place] 00[place]37 May, Other emphysema J43.8 ; Smoking F17.200 and Tobacco abuse counseling Z71.[address] C [id number] [place] 925450537 May, Cough R05 and Other emphysema J43.[address] C [id number] [place] 940[address]1002 Apr, [address] C [id number] [place] 5474[address] Apr, Skin lesion of back L98.9 and Skin lesion L98.[address] C [id number] [place] 244153394 Apr, Skin lesion of back L98.9 and Hot flashes N95.[address] C [id number] [place] 547608376 Mar, Bronchitis J40 [address] C [id number] [place] 026053693 Mar, Acute pharyngitis, unspecified J02.9 and Upper respiratory infection with cough and congestion J06.[address] C [id number] [place] 584283828 Mar, Bronchitis J40 ; Shortness of breath R06.02 ; Encounter for screening mammogram for breast cancer Z12.31 and Yeast infection B37.[address] C [id number] [place] 953520400 Jan, Other and unspecified hyperlipidemia 272.4 and Hypothyroidism 244.[address] C [id number] [place] 937[address]475[address] Dec, [facility] [place] [address] [facility] [address] [id number] [place] [address]0745 Nov, Diarrhea 787.91 and Nausea 787.02 [facility] [place] [address] [facility] [address] [id number] [place] 663385127 October, Other and unspecified hyperlipidemia 272.4 [facility] [place] [address] [facility] [address] [id number] [place] 163607763 October, Lumbago 724.2 [facility] [place] [facility] [address] [facility] [id number] [place] [address] Sep, [facility] [address] [facility] [id number] [place] [address] Sep, [facility] [address] [facility] [id number] [place] [address] Aug, [facility] [place] [address] [facility] [address] [id number] [place] 414740030 Aug, [facility] [place] [address] [facility] [address] [id number] [place] 857097199 Jun, [facility] [address] [facility] [id number] [place] [address] Jun, [facility] [address] [facility] [id number] [place] [address] May, [facility] [place] [facility] [address] [facility] [id number] [place] [address] May, [facility] [place] [address] [facility] [address] [id number] [place] 515584167 May, [facility] [place] [address] [facility] [address] [id number] [place] 499013409 Apr, [facility] [address] [facility] [id number] [place] [address] Apr, [facility] [place] [address] [facility] [address] [id number] [place] [id number] Mar, [facility] [place] [facility] [address] [id number] [place] [address] Mar, [facility] [place] [address] [id number] [place] 117531244 Mar, [facility] [place] [facility] [address] [id number] [place] [address] Mar, [facility] [place] [facility] [address] [id number] [place] [address] Mar, [facility] [place] [address] [id number] [place] 615067008 Mar, [facility] [place] [address] [id number] [place] 589219117 Feb, [facility] [place] [facility] [address] [id number] [place] [address] Feb, [facility] [place] [address] [id number] [place] 018301169 Jan, [facility] [place] [facility] [address] [id number] [place] [address] Jan, [facility] [place] [facility] [address] [id number] [place] [address] Jan, [facility] [place] [facility] [address] [id number] [place] [address] Jan, [facility] [place] [address] [id number] [place] 501388356 Jan, [facility] [place] [facility] [address] [id number] [place] [address] Jan, [facility] [place] [address] [id number] [place] 800540696 Dec, [facility] [place] [facility] [address] [id number] [place] [address] Dec, [facility] [place] [facility] [address] [id number] [place] [address] Dec, [facility] [place] [facility] [address] [id number] [place] [address] Dec, [facility] [place] [address] [id number] [place] 026200370 Dec, [facility] [place] [address] [facility] [address] [id number] [place] [id number] Dec, [facility] [address] [id number] [place] [address] Dec, [facility] [place] [address] [facility] [address] [id number] [place] 170159507 October, [facility] [address] [id number] [place] [address] October, [facility] [address] [facility] [id number] [place] [address] October, [facility] [place] [address] [facility] [address] [id number] [place] 121418837 Sep, [facility] [address] [facility] [id number] [place] [address] Sep, [facility] [place] [address] [facility] [address] [id number] [place] 313344482 Sep, [facility] [address] [facility] [id number] [place] [address] Sep, [facility] [address] [id number] [place] [address] Aug, [facility] [place] [address] [facility] [address] [id number] [place] 4079[address]365 Aug, [facility] [place] [facility] [address] [id number] [place] [address] Jun, [facility] [place] [facility] [address] [id number] [place] [address] Jun, [facility] [place] [address] [facility] [address] [id number] [place] 662801269 Jun, [facility] [place] [address] [id number] [place] 094783704 May, [facility] [address] [facility] [id number] [place] [address] May, [facility] [address] [facility] [id number] [place] [address] May, [facility] [place] [address] [facility] [address] [id number] [place] 879545660 May, [facility] [place] [address] [facility] [id number] [place] 198145865 Apr, [facility] [address] [facility] [id number] [place] [address] Apr, [facility] [address] [facility] [id number] [place] [address] Feb, [facility] [address] [facility] [id number] [place] [address] Feb, IMMUNIZATIONS No Known Immunizations SOCIAL HISTORY Never Assessed REASON FOR VISIT Headache, blurred vision, feels swollen from neck up. Wonders if it is related t o BP- Sadi PLAN OF CARE Activity Details Follow Up 1 Week Reason:after CT of head and US of neck VITAL SIGNS Height 65 in 2017-05-26 Weight 144.5 lbs 2017-05-26 Temperature 98.6 degrees Fahrenheit 2017-05-26 Heart Rate 82 bpm 2017-05-26 Respiratory Rate 16 2017-05-26 BMI 24.04 kg/m2 2017-05-26 Blood pressure systolic 120 mmHg 2017-05-26 Blood pressure diastolic 64 mmHg 2017-05-26 MEDICATIONS Medication Instructions Dosage Frequency Start Date End Date Duration Status pantoprazole 40 mg take 1 tablet (40 mg) by oral route 2 times per day Mar, Active D3-50 63480 UNIT Active Crestor 10 MG Orally Once a day 1 tablet 24h Active Aspirin 81 mg take 1 tablet (81 mg) by oral route once daily Mar, Active Verapamil HCl ER 180 MG Orally Once a day 1 tablet 24h Active Trazodone HCl 50 mg Orally Once a day 1 tablet at bedtime as needed 24h Dec, 30 day(s) Active Fish Oil 1000 MG Orally Once a day 1 capsule 24h Active HydrOXYzine HCl 50 mg Orally at bedtime 1 tablet at bedtime Aug, Not-Taking Tizanidine HCl 2 MG Orally Three times a day 1 tablet as needed 8h Sep, Not-Taking Losartan Potassium 50 MG Orally Once a day 1 tablet 24h Active Zetia 10 mg take 1 tablet (10 mg) by oral route once daily Jun, Active Sucralfate 1 GM Orally Twice a day 1 tablet on an empty stomach 12h Not-Taking Spiriva Respimat 2.5 MCG/ACT INHALE 2 PUFFS DAILY 30 Active RESULTS No Results PROCEDURES Procedure Date Ordered Result Body Site COMPREHEN METABOLIC PANEL May 26, 2017 COMPLETE CBC W/AUTO DIFF WBC May 26, 2017 ASSAY OF FREE THYROXINE May 26, 2017 ASSAY THYROID STIM HORMONE May 26, 2017 VENIPUNCT, ROUTINE* May 26, 2017 INSTRUCTIONS MEDICATIONS ADMINISTERED No Known Medications [...]
--- OUTSIDE RECORDS SUMMARY | 2019-04-01 10:50 | XMS REPORT ---
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 64395368 Problem Dyslipidemia E78.5 Active 046497670 Problem Elevated LFTs R79.89 Active 961822518 Problem Nonspecific low blood pressure reading 796.3 Active 990168924 Problem Insomnia, unspecified type G47.00 Active 858780434 Assessment Fever, unspecified fever cause R50.9 Feb, Active 113523358 Assessment Acute non-recurrent maxillary sinusitis J01.00 Feb, Active 58795117 Problem Other and unspecified hyperlipidemia E78.5 Active 03799467 Problem Vitamin D deficiency E55.9 Active 98856335 Problem Hypertension I10 Active 58952457 Problem Facial rash R21 Active 258985583 Problem Other and unspecified hyperlipidemia 272.4 Active 05191754 Problem Nonspecific abnormal results of liver function study 794.8 Active 192507705 Problem Counseling on substance use and abuse V65.42 Active 857107107 Problem Essential hypertension, benign 401.1 Active 3354702 Problem Smoking F17.200 Active 33260251 Problem Other emphysema J43.8 Active 94673073 Problem Hot flashes N95.1 Active 706083098 Problem Borderline abnormal thyroid function test R94.6 Active 849498637 Problem Skin lesion of back L98.9 Active 96132404 Problem Family history of cardiovascular disease Z82.49 Active 759571510 ALLERGIES Substance Reaction Event Type Date Status Promethazine VC/Codeine stomach upset Drug Allergy Feb, Active Fentanyl anaphylaxis Drug Allergy Feb, Active SOCIAL HISTORY No smoking Hx information available PLAN OF CARE VITAL SIGNS Height 65 in 2016-03-14 Weight 139 lbs 2016-03-14 Heart Rate 120 bpm 2016-03-14 Respiratory Rate 18 2016-03-14 BMI 23.13 kg/m2 2016-03-14 Blood pressure systolic 112 mmHg 2016-03-14 Blood pressure diastolic 70 mmHg 2016-03-14 MEDICATIONS Medication Instructions Dosage Frequency Start Date End Date Duration Status Cephalexin 500 MG Orally Twice a day 1 capsule 12h 07 days Active Lisinopril 5 MG Orally Once a day 1 tablet 24h Aug, Active Trazodone HCl 50 mg Orally Once a day 0.5 - 1 tablet at bedtime as needed 24h 31 Jan, 2016 Active Spiriva Respimat 2.5 MCG/ACT Inhalation Once a day 2 puffs 24h Active Effexor XR 75 MG Orally Once a day 1 capsule with food 24h Apr, Active Crestor 10 MG Orally Once a day 1 tablet 24h Active Aspirin 81 mg take 1 tablet (81 mg) by oral route once daily Mar, Active pantoprazole 40 mg take 1 tablet (40 mg) by oral route 2 times per day Mar, Active Albuterol Sulfate 108 (90 Base) MCG/ACT Inhalation every 4 hrs 1 puff as needed 4h Mar, Active Albuterol Sulfate 2.5 mg /3 mL (0.083 %) 1 Each by Inhalation route every 4 hours for cough and wheeze PRN for wheezing or cough Apr, Active Augmentin 875-125 MG Orally every 12 hrs 1 tablet 12h Feb, Mar, 10 day(s) Active Zetia 10 mg take 1 tablet (10 mg) by oral route once daily Jun, Active Belsomra 10 mg Orally Once a day 1 tablet at bedtime as needed 24h Jan, Active Tessalon Perles 100 MG Orally Three times a day 1 capsule as needed 8h October, Active Fish Oil 1000 MG Orally Once a day 1 capsule 24h Active Diltiazem CD 120 MG Orally Once a day 1 capsule 24h Active D3-50 12359 UNIT Active RESULTS Name Result Date Reference Range INFLUENZA A & B (IN HOUSE) 2016-03-14 INFLUENZA A NEG INFLUENZA B NEG Control Valid Lot # [id number] Exp date 07/31/2017 PROCEDURES Procedure Date Ordered Related Diagnosis Body Site INFLUENZA ASSAY W/OPTIC Mar 14, 2016 Office Visit, Est Pt., Level 3 Mar 14, 2016 IMMUNIZATIONS No Known Immunizations
--- OUTSIDE RECORDS SUMMARY | 2019-04-01 10:51 | XMS REPORT ---
Author Author SARA MICHEL [facility] Address [address] [place] [address] Care Team Providers Care Research Environmental Scientist Name Role Phone MICHEL, SARA Unavailable PROBLEMS Type Condition ICD9-CM Code IGE37-FT Code Onset Dates Condition Status SNOMED Code Problem Nonspecific low blood pressure reading 796.3 Active 284234829 Problem Nonspecific abnormal results of liver function study 794.8 Active 075618092 Problem Essential hypertension, benign 401.1 Active 3039313 Problem Other and unspecified hyperlipidemia 272.4 Active 43117983 Problem Counseling on substance use and abuse V65.42 Active 663353648 Problem Insomnia, unspecified type G47.00 Active 731319598 Problem Hot flashes N95.1 Active 466555346 Problem Elevated LFTs R79.89 Active 599210154 Problem Skin lesion of back L98.9 Active 04196561 Problem Familial hypercholesterolemia E78.0 Active 348369603 Problem Lumbago 724.2 Active 915948474 Problem Other nonspecific abnormal finding 796.9 Active 844011286 Problem Primary insomnia F51.01 Active 6511020 Problem History of thyroidectomy E89.0 Active 559558622 Problem Borderline abnormal thyroid function test R94.6 Active 682401230 Problem Smoking F17.200 Active 00850729 Problem Other emphysema J43.8 Active 87451654 Problem Anxiety F41.9 Active 34252624 Problem Gastroparesis 536.3 Active 809632767 Problem Atrial tachycardia I47.1 Active 337692563 Problem Other insomnia G47.09 Active 751813105 Problem Dyspnea on exertion R06.09 Active 43168515 Problem Dyslipidemia E78.5 Active 545021668 Problem Family history of cardiovascular disease Z82.49 Active 900586569 Problem 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 90373845 Problem Facial rash R21 Active 503426129 Problem Hypertension I10 Active 01183476 Problem Vitamin D deficiency E55.9 Active 96904426 Problem Other and unspecified hyperlipidemia E78.5 Active 23876806 ALLERGIES Substance Reaction Event Type Date Status Promethazine VC/Codeine stomach upset Drug Allergy Jun, Active Fentanyl anaphylaxis Drug Allergy Jun, Active SOCIAL HISTORY No smoking Hx information available PLAN OF CARE Activity Details Follow Up prn, 4 Weeks Reason:anxiety VITAL SIGNS Height 65 in 2016-06-26 Weight 140.0 lbs 2016-06-26 Temperature 98.4 degrees Fahrenheit 2016-06-26 Heart Rate 76 bpm 2016-06-26 Respiratory Rate 16 2016-06-26 BMI 23.29 kg/m2 2016-06-26 Blood pressure systolic 112 mmHg 2016-06-26 Blood pressure diastolic 70 mmHg 2016-06-26 MEDICATIONS Medication Instructions Dosage Frequency Start Date End Date Duration Status Aspirin 81 mg take 1 tablet (81 mg) by oral route once daily Mar, Active pantoprazole 40 mg take 1 tablet (40 mg) by oral route 2 times per day Mar, Active Dicyclomine HCl 20 mg Orally 2 times a day 1 tablet 12h Active Spiriva Respimat 2.5 MCG/ACT Inhalation Once a day 2 puffs 24h Active Zoloft 50 mg Orally Once a day 1 tablet 24h Jun, 30 day(s) Active Lisinopril 10 MG Orally 2 times a day 1 tablet 12h Active D3-50 06701 UNIT Active Crestor 10 MG Orally Once a day 1 tablet 24h Active Zetia 10 mg take 1 tablet (10 mg) by oral route once daily Jun, Active Fish Oil 1000 MG Orally Once a day 1 capsule 24h Active Sucralfate 1 GM Orally Twice a day 1 tablet on an empty stomach 12h Active RESULTS No Results PROCEDURES Procedure Date Ordered Related Diagnosis Body Site Office Visit, Est Pt., Level 3 Jun 26, 2016 IMMUNIZATIONS No Known Immunizations
--- OUTSIDE RECORDS SUMMARY | 2019-04-01 10:51 | XMS REPORT ---
Author Author KEVIN BEJARANO [facility] Address [address] [place] [address] Care Team Providers Care Shrimp Picker Name Role Phone KEVIN BEJARANO Unavailable PROBLEMS Type Condition ICD9-CM Code HIF74-JH Code Onset Dates Condition Status SNOMED Code Problem Hot flashes N95.1 Active 211480978 Problem Elevated LFTs R79.89 Active 587849407 Problem Skin lesion of back L98.9 Active 74024618 Problem Familial hypercholesterolemia E78.0 Active 179119821 Problem Smoking F17.200 Active 29140856 Problem Gastroparesis 536.3 Active 711151751 Problem Other insomnia G47.09 Active 191744128 Problem Anxiety F41.9 Active 00418971 Problem Chronic obstructive pulmonary disease, unspecified COPD type J44.9 Active 90917383 Problem Essential hypertension I10 Active 96402961 Problem Family history of cardiovascular disease Z82.49 Active 902512309 Problem Borderline abnormal thyroid function test R94.6 Active 079200971 Problem Other emphysema J43.8 Active 84637032 Problem Atrial tachycardia I47.1 Active 340615669 Problem Primary insomnia F51.01 Active 8687686 Problem Thyroiditis E06.9 Active 22076663 Problem History of thyroidectomy E89.0 Active 583679677 Problem 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 47078687 Problem Vitamin D deficiency E55.9 Active 52759062 Problem Dyspnea on exertion R06.09 Active 34178518 Problem Dyslipidemia E78.5 Active 872781464 Problem Hypertension I10 Active 41207994 Problem Insomnia, unspecified type G47.00 Active 669287742 Problem Other and unspecified hyperlipidemia E78.5 Active 61071560 Problem Facial rash R21 Active 656279292 ALLERGIES No Information ENCOUNTERS Encounter Location Date Diagnosis [facility] [place] [address] [facility] [facility] [address] [id number] [place] [id number] Aug, Adverse effect of drug, initial encounter T88.7[facility] [address] [facility] [address] [id number] [place] [id number] Aug, Primary insomnia F51.01 [facility] [place] [address] [facility] [address] [id number] [place] [address] Jul, [facility] [place] [address] [facility] [address] [id number] [place] [address] Jul, Primary insomnia F51.01 [facility] [address] [facility] [id number] [place] [address] Jul, [facility] [place] [address] [place] [address] [address] [id number] [place] [address] Jul, Atrial tachycardia I47.1 [facility] [place] [address] [place] [address] [address] [id number] [place] [id number] Jul, [facility] [place] [address] [facility] [address] [id number] [place] [id number] Jun, Flu-like symptoms R68.89 and Chronic obstructive pulmonary disease, unspecified COPD type J44.9 [facility] [place] [address] [place] [address] [address] [id number] [place] [address] Jun, [facility] [place] [address] [place] [address] [address] [id number] [place] [id number] Jun, [facility] [place] [address] [place] [address] [address] [id number] [place] [address] Jun, [facility] [place] [address] [place] [address] [address] [id number] [place] [address] Jun, Epigastric pain R10.13 ; Diarrhea, unspecified type R19.7 and Non-intractable vomiting without nausea, unspecified vomiting type R11.11 [facility] [address] [facility] [id number] [place] [address] May, [facility] [place] [address] [place] [address] [address] [id number] [place] [address] May, Chronic nonintractable headache, unspecified headache type R51 [facility] [place] [address] [place] [address] [address] [id number] [place] [id number] May, [facility] [place] [address] [facility] [address] [id number] [place] [id number] May, Essential hypertension I10 ; Thyroiditis E06.9 and Nonintractable episodic headache, unspecified headache type R51 [facility] [place] [address] [facility] [address] [id number] [place] [address] Feb, Dyslipidemia E78.5 ; Vitamin D deficiency E55.9 and Atherosclerosis of left carotid artery I65.22 [facility] [place] [address] [place] [address] [address] [id number] [place] [id number] Jan, [facility] [address] [facility] [id number] [place] [address] Dec, [facility] [place] [address] [place] [address] [address] [id number] [place] [id number] Dec, Atrial tachycardia I47.1 ; History of thyroidectomy E89.0 ; Primary insomnia F51.01 and Tobacco use Z72.0 [facility] [place] [address] [place] [address] [address] [id number] [place] [id number] October, Galactorrhea O92.6 [facility] [place] [address] [place] [address] [address] [id number] [place] [address] October, [facility] [place] [address] [place] [address] [address] [id number] [place] [address]195[address] October, [facility] [place] [address] [place] [address] [address] [id number] [place] [id number] October, [facility] [place] [address] [place] [address] [address] [id number] [place] [address] October, Cough R05 and Other chest pain R07.89 [facility] [place] [address] [place] [address] [address] [id number] [place] [id number] Sep, Dysuria R30.0 ; Acute cystitis without hematuria N30.00 and Chest tightness or pressure R07.89 [facility] [place] [address] [facility] [address] [id number] [place] [address] Sep, [facility] [place] [address] [facility] [address] [id number] [place] [address] Sep, Acute bilateral low back pain without sciatica M54.5 [facility] [place] [address] [facility] [address] [id number] [place] [address] Aug, Dermatitis L30.9 ; Other insomnia G47.09 and Anxiety F41.9 [facility] [place] [address] [facility] [address] [id number] [place] [address] Aug, [facility] [place] [address] [facility] [address] [id number] [place] [address] Aug, Hypertension I10 ; Dyslipidemia E78.5 and Vitamin D deficiency E55.9 [facility] [place] [address] [facility] [address] [id number] [place] [id number] Jun, Anxiety F41.9 and Hypertension I10 [facility] [address] [facility] [id number] [place] [address] Jun, [facility] [place] [address] [facility] [address] [id number] [place] [id number] Jun, Anxiety F41.9 and Hypertension I10 [facility] [place] [address] [place] [address] [address] [id number] [place] [id number] Jun, [facility] [place] [address] [place] [address] [address] [id number] [place] [address] May, [facility] [place] [address] [facility] [address] [id number] [place] [address] May, Acute upper back pain M54.9 and Hypertension I10 [facility] [place] [address] [facility] [address] [id number] [place] [id number] Apr, [facility] [place] [address] [facility] [address] [id number] [place] [address] Apr, Mid-back pain, acute M54.9 ; Dyslipidemia E78.5 and Hypertension I10 [facility] [place] [address] [facility] [address] [id number] [place] [address] Apr, [facility] [place] [address] [facility] [address] [id number] [place] [id number] Apr, [facility] [place] [address] [facility] [address] [id number] [place] [id number] Feb, Familial hypercholesterolemia E78.0 ; Occlusion and stenosis of left carotid artery I65.22 and Vitamin D deficiency E55.9 [facility] [place] [address] [place] [address] [address] [id number] [place] [address] Feb, [facility] [place] [address] [place] [address] [address] [id number] [place] [id number] Feb, Fever, unspecified fever cause R50.9 and Acute non-recurrent maxillary sinusitis J01.00 [facility] [place] [address] [place] [address] [address] [id number] [place] [id number] Jan, [facility] [place] [address] [place] [address] [address] [id number] [place] [id number] Jan, [facility] [place] [address] [place] [address] [address] [id number] [place] [id number] Jan, Nodule of neck R22.1 and Night sweats R61 [facility] [place] [address] [place] [address] [address] [id number] [place] [id number] Dec, [facility] [place] [address] [place] [address] [address] [id number] [place] [id number] Dec, [facility] [place] [address] [place] [address] [address] [id number] [place] [id number] Nov, [facility] [place] [address] [place] [address] [address] [id number] [place] [id number] Nov, [facility] [place] [address] [place] [address] C [id number] [place] [id number] October, Acute upper respiratory infection, unspecified J06.9 ; Other viral agents as the cause of diseases classified elsewhere B97.89 and Calculus of gallbladder without cholecystitis without obstruction K80.20 [facility] [address] [place] [address] [address] [id number] [place] [id number] Sep, Insomnia, unspecified type G47.00 ; Hypertension I10 and Elevated LFTs R79.89 [facility] [address] [place] [address] [address] [id number] [place] 638[address] Sep, Bleeding after intercourse N93.0 and Dysuria R30.0 [facility] [place] [id number] [place] [address] Aug, Dysuria R30.0 and Pyuria N39.0 [facility] [address] [id number] [place] [address] Aug, Hypertension I10 ; Insomnia, unspecified type G47.00 and 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 [id number] [place] [address] Jul, Pain of upper extremity M79.603 ; Hypertension I10 and Pure hypercholesterolemia E78.[address] [id number] [place] [address] Jul, Physical exam, pre-employment Z02.1 ; Visit for TB skin test Z11.1 ; Facial rash R21 and 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 [id number] [place] [id number] 04 Jul, 2015 Other and unspecified hyperlipidemia E78.5 ; Borderline abnormal thyroid function test R94.6 and Vitamin D deficiency E55.[address] [id number] [place] [id number] Jun, 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 ; Dyslipidemia E78.5 ; Dyspnea on exertion R06.09 ; Family history of cardiovascular disease Z82.49 and Borderline abnormal thyroid function test R94.[address] [id number] [place] [address] May, Other emphysema J43.8 ; Smoking F17.200 and Tobacco abuse counseling Z71.6 [facility] [address] [id number] [place] [address] May, Cough R05 and Other emphysema J43.[address] [id number] [place] [address]57[address] Apr, [facility] [place] [id number] [place] [id number] Apr, Skin lesion of back L98.9 and Skin lesion L98.9 [facility] [place] [address] [place] [address] [address] [id number] [place] 639[address]3043 Apr, Skin lesion of back L98.9 and Hot flashes N95.1 [facility] [place] [address] [place] [address] [address] [id number] [place] [id number] Mar, Bronchitis J40 [facility] [place] [address] [place] [address] C [id number] [place] [id number] Mar, Acute pharyngitis, unspecified J02.9 and Upper respiratory infection with cough and congestion J06.9 [facility] [place] [address] [place] [address] [address] [id number] [place] [id number] Mar, Bronchitis J40 ; Shortness of breath R06.02 ; Encounter for screening mammogram for breast cancer Z12.31 and Yeast infection B37.9 [facility] [place] [address] [place] [address] C [id number] [place] [id number] Jan, Other and unspecified hyperlipidemia 272.4 and Hypothyroidism 244.9 [facility] [place] [address] [place] [address] [address] [id number] [place] [id number] Dec, [facility] [place] [address] [place] [address] C [id number] [place] [id number] Nov, Diarrhea 787.91 and Nausea 787.02 [facility] [place] [address] [place] [address] C [id number] [place], [place] [id number] October, Other and unspecified hyperlipidemia 272.4 [facility] [place] [address] [place] [address] C [id number] [place] [id number] October, Lumbago 724.2 [facility] [address] [facility] [id number] [address] Sep, [facility] [address] [facility] [id number][place] [address] Sep, [facility] [address] [facility] [id number][place] [address] Aug, [address] [id number] [place] [address] Aug, [facility] [place] [address] [id number] [place] [address] Jun, [facility] [address] [facility] [id number] [place] [address] Jun, [facility] [address] [facility] [id number] [facility] [place] [address] May, [facility] [address] [facility] [id number] [facility] [place] [address] May, [facility] [place] [address] [id number] [place] [id number] May, [facility] [place] [address] [id number] [place] 546256934 Apr, [facility] [address] [facility] [id number] [facility] [place] [address] Apr, [facility] [place] [address] [facility] [address] [id number] [place] [id number] Mar, [facility] [address] [facility] [id number] [place] [address] Mar, [facility] [place] [address] [facility] [address] [id number] [place] 489302677 Mar, [facility] [address] [facility] [id number] [facility] [place] [address] Mar, [facility] [place] [facility] [address] [facility] [id number] [facility] [place] [address] Mar, [facility] [place] [address] [facility] [address] [id number] [place] 823[address]2513 Mar, [facility] [place] [address] [id number] [place] [id number] Feb, [facility] [place] [facility] [address] [facility] [id number] [place] [address] Feb, [facility] [place] [address] [facility] [address] [id number] [place] [id number] Jan, [facility] [address] [facility] [id number] [facility] [place] [address] Jan, [facility] [place] [facility] [address] [id number] [facility] [place] [address] Jan, [facility] [place] [facility] [address] [id number] [place] [address] Jan, [facility] [place] [address] [id number] [place] [id number] Jan, [facility] [place] [facility] [address] [id number] [place] [address] Jan, [facility] [place] [address] [id number] [place] 809307788 Dec, [facility] [place] [facility] [address] [id number] [place] [address] Dec, [facility] [place] [facility] [address] [id number] [place] [address] Dec, [facility] [place] [facility] [address] [id number] [facility] [place] [address] Dec, [facility] [place] [address] [id number] [place] [id number] Dec, [facility] [place] [address] [id number] [place] 799926048 Dec, [facility] [place] [facility] [address] [id number] [place] [address] Dec, [facility] [place] [address] [id number] [place] [id number] October, [facility] [place] [facility] [address] [id number] [facility] [place] [address] October, [facility] [place] [facility] [address] [id number] [place] [address] October, [facility] [place] [address] [id number] [place] [id number] Sep, [facility] [place] [facility] [address] [id number] [address] Sep, [facility] [place] [address] [facility] [address] [id number] [place] [address] Sep, [facility] [address] [facility] [id number] [place] [address] Sep, [facility] [address] [facility] [id number] [place] [address] Aug, [facility] [place] [address] [facility] [address] [id number] [place] [id number] Aug, [facility] [address] [facility] [id number], [place] [address] Jun, [facility] [address] [facility] [id number], [place] [address] Jun, [facility] [place] [address] [facility] [address] [id number] [place] 6[address]23[address] Jun, [facility] [place] [address] [facility] [address] [id number] [place] [id number] May, [facility] [address] [facility] [id number][place] [address] May, [facility] [address] [facility] [id number], [place] [address] May, [facility] [place] [address] [facility] [address] [id number] [place] [id number] May, [facility] [place] [address] [facility] [address] [id number] [place] [id number] Apr, [facility] [address] [facility] [id number] [address] Apr, [facility] [address] [facility] [id number][place] [address] Feb, [facility] [place] [address] [facility] [address] [id number] [place] [id number] Feb, IMMUNIZATIONS No Known Immunizations SOCIAL HISTORY Never Assessed REASON FOR VISIT CT PLAN OF CARE VITAL SIGNS MEDICATIONS Unknown [...]
--- OUTSIDE RECORDS SUMMARY | 2019-04-01 10:51 | XMS REPORT ---
Author Author KEVIN BEJARANO [facility] Address [address] [place] [address] Care Team Providers Care Power Cleaner Operator Name Role Phone KEVIN BEJARANO Unavailable PROBLEMS Type Condition ICD9-CM Code NUV66-VI Code Onset Dates Condition Status SNOMED Code Problem Hot flashes N95.1 Active 569834611 Problem Elevated LFTs R79.89 Active 767967538 Problem Skin lesion of back L98.9 Active 24069951 Problem Familial hypercholesterolemia E78.0 Active 965305100 Problem Smoking F17.200 Active 31386534 Problem Gastroparesis K31.84 Active 422905222 Problem Other insomnia G47.09 Active 939857136 Problem Anxiety F41.9 Active 07998882 Problem Chronic obstructive pulmonary disease, unspecified COPD type J44.9 Active 19302779 Problem Essential hypertension I10 Active 09730046 Problem Family history of cardiovascular disease Z82.49 Active 466505117 Problem Borderline abnormal thyroid function test R94.6 Active 929564124 Problem Other emphysema J43.8 Active 96225552 Problem Atrial tachycardia I47.1 Active 482288616 Problem Primary insomnia F51.01 Active 1769434 Problem Thyroiditis E06.9 Active 05868829 Problem History of thyroidectomy E89.0 Active 740774047 Problem 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 58720644 Problem Vitamin D deficiency E55.9 Active 26054398 Problem Dyspnea on exertion R06.09 Active 44217729 Problem Dyslipidemia E78.5 Active 310232739 Problem Hypertension I10 Active 32921593 Problem Insomnia, unspecified type G47.00 Active 369748277 Problem Other and unspecified hyperlipidemia E78.5 Active 44231146 Problem Facial rash R21 Active 908825948 ALLERGIES No Information ENCOUNTERS Encounter Location Date Diagnosis [facility] [place] [address] [facility] C [id number] [place] [id number] October, Dry mouth, unspecified R68.2 ; Pharyngitis, unspecified etiology J02.9 and Primary insomnia F51.01 [facility] [place] [address] [place] [address] [address] [id number] [place] [id number] October, [facility] [place] [address] [place] [address] [address] [id number] [place] [id number] Sep, [facility] [place] [address] [place] [address] [address] [id number] [place] 601132517 Sep, Hemoptysis R04.2 [facility] [place] [address] [place] [address] [address] [id number] [place] 120285316 Sep, Primary insomnia F51.01 [facility] [place] [address] [place] [address] [address] [id number] [place] 481167397 Sep, Adverse effect of drug, initial encounter T88.7XXA [facility] [place] [address] [place] [address] [address] [id number] [place] [id number] Aug, Adverse effect of drug, initial encounter T88.7XXA [facility] [place] [address] [place] [address] [address] [id number] [place] 7874345[address] Aug, Primary insomnia F51.01 [facility] [place] [address] [place] [address] [address] [id number] [place] [id number] Jul, [facility] [place] [address] [place] [address] [address] [id number] [place] [id number] Jul, Primary insomnia F51.01 [facility] [address] [facility] [id number] [place] [address] Jul, [facility] [place] [address] [place] [address] [address] [id number] [place] 772295380 Jul, Atrial tachycardia I47.1 [facility] [place] [address] [place] [address] [address] [id number] [place] [id number] Jul, [facility] [place] [address] [place] [address] [address] [id number] [place] 107576364 Jun, Flu-like symptoms R68.89 and Chronic obstructive pulmonary disease, unspecified COPD type J44.9 [facility] [place] [address] [place] [address] [address] [id number] [place] [id number] Jun, [facility] [place] [address] [facility] [address] [id number] [place] [id number] Jun, [facility] [place] [address] [facility] [address] [id number] [place] [id number] Jun, [facility] [place] [address] [place] [address] [address] [id number] [place] 348102155 Jun, Epigastric pain R10.13 ; Diarrhea, unspecified type R19.7 and Non-intractable vomiting without nausea, unspecified vomiting type R11.11 [facility] [address] [facility] [id number] [place] [address] May, [facility] [place] [address] [place] [address] C [id number] [place] 838918713 May, Chronic nonintractable headache, unspecified headache type R51 [facility] [place] [address] [place] [address] C [id number] [place] 746702762 May, [facility] [place] [address] [place] [address] C [id number] [place] [id number] May, Essential hypertension I10 ; Thyroiditis E06.9 and Nonintractable episodic headache, unspecified headache type R51 [facility] [place] [address] [place] [address] C [id number] [place] 246048074 Feb, Dyslipidemia E78.5 ; Vitamin D deficiency E55.9 and Atherosclerosis of left carotid artery I65.22 [facility] [place] [address] [place] [address] C [id number] [place] 685361530 Jan, [facility] [address] [facility] [id number] [place] [address] Dec, [facility] [place] [address] [place] [address] C [id number] [place] 689936146 Dec, Atrial tachycardia I47.1 ; History of thyroidectomy E89.0 ; Primary insomnia F51.01 and Tobacco use Z72.0 [facility] [place] [address] [place] [address] [address] [id number] [place] 294300344 October, Galactorrhea O92.6 [facility] [address] [place] [address] C [id number] [place] 782181506 October, [facility] [place] [address] [facility] [address] [id number] [place] 264827845 October, [facility] [place] [address] [facility] [address] [id number] [place] 643822214 October, [facility] [place] [address] [place] [address] [address] [id number] [place] 251258661 October, Cough R05 and Other chest pain R07.89 [facility] [place] [address] [place] [address] [address] [id number] [place] 654900273 Sep, Dysuria R30.0 ; Acute cystitis without hematuria N30.00 and Chest tightness or pressure R07.89 [facility] [place] [address] [place] [address] [address] [id number] [place] [id number] Sep, [facility] [place] [address] [place] [address] [address] [id number] [place] 820558361 Sep, Acute bilateral low back pain without sciatica M54.5 [facility] [place] [address] [place] [address] [address] [id number] [place] 410133075 Aug, Dermatitis L30.9 ; Other insomnia G47.09 and Anxiety F41.9 [facility] [place] [address] [place] [address] [address] [id number] [place] [id number] Aug, [facility] [place] [address] [place] [address] [address] [id number] [place] 503071521 Aug, Hypertension I10 ; Dyslipidemia E78.5 and Vitamin D deficiency E55.9 [facility] [place] [address] [place] [address] [address] [id number] [place] 966192765 Jun, Anxiety F41.9 and Hypertension I10 [facility] [address] [facility] [id number] [place] [address] Jun, [facility] [place] [address] [place] [address] [address] [id number] [place] 484849233 Jun, Anxiety F41.9 and Hypertension I10 [facility] [place] [address] [place] [address] [address] [id number] [place] 817127482 Jun, [facility] [place] [address] [facility] [address] [id number] [place] 960165370 May, [facility] [place] [address] [facility] [address] [id number] [place] 828889425 May, Acute upper back pain M54.9 and Hypertension I10 [facility] [place] [address] [facility] [address] [id number] [place] 606200766 Apr, [facility] [place] [address] [facility] [address] [id number] [place] 632855676 Apr, Mid-back pain, acute M54.9 ; Dyslipidemia E78.5 and Hypertension I10 [facility] [place] [address] [place] [address] [address] [id number] [place] 387755714 Apr, [facility] [place] [address] [facility] [address] [id number] [place] 414693824 Apr, [facility] [place] [address] [facility] [address] [id number] [place] 276336792 Feb, Familial hypercholesterolemia E78.0 ; Occlusion and stenosis of left carotid artery I65.22 and Vitamin D deficiency E55.9 [facility] [place] [address] [place] [address] [address] [id number] [place] 932835834 Feb, [facility] [place] [address] [place] [address] [address] [id number] [place] 772905320 Feb, Fever, unspecified fever cause R50.9 and Acute non-recurrent maxillary sinusitis J01.00 [facility] [place] [address] [facility] [address] [id number] [place] 386744135 Jan, [facility] [place] [address] [facility] [address] [id number] [place] 259162898 Jan, [facility] [place] [address] [facility] [address] [id number] [place] 276443282 Jan, Nodule of neck R22.1 and Night sweats R61 [facility] [place] [address] [facility] [address] [id number] [place] 238637305 Dec, [facility] [place] [address] [facility] [address] [id number] [place] 068901559 Dec, [facility] [place] [address] [place] [address] C [id number] [place] 755996351 Nov, [facility] [place] [address] [place] [address] C [id number] [place] [id number] Nov, [facility] [place] [address] [place] [address] C [id number] [place] 585546948 October, Acute upper respiratory infection, unspecified J06.9 ; Other viral agents as the cause of diseases classified elsewhere B97.89 and Calculus of gallbladder without cholecystitis without obstruction K80.20 [facility] [place] [address] [place] [address] C [id number] [place] 684748041 Sep, Insomnia, unspecified type G47.00 ; Hypertension I10 and Elevated LFTs R79.89 [facility] [address] [place] [address] C [id number] [place], [place] 159451798 Sep, Bleeding after intercourse N93.0 and Dysuria R30.0 [facility] [place] [address] [place] [address] C [id number] [place] 186908542 Aug, Dysuria R30.0 and Pyuria N39.0 [facility] [place] [address] [place] [address] C [id number] [place] 367040400 Aug, Hypertension I10 ; Insomnia, unspecified type G47.00 and 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 [facility] [place] [address] [place] [address] C [id number] [place], [place] [id number] 12 Jul, 2015 Pain of upper extremity M79.603 ; Hypertension I10 and Pure hypercholesterolemia E78.0 [facility] [place] [address] [place] [address] C [id number] [place] [id number] 09 Jul, 2015 Physical exam, pre-employment Z02.1 ; Visit for TB skin test Z11.1 ; Facial rash R21 and 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 [facility] [place] [address] [place] [address] C [id number] [place] [id number] 04 Jul, 2015 Other and unspecified hyperlipidemia E78.5 ; Borderline abnormal thyroid function test R94.6 and Vitamin D deficiency E55.9 [facility] [address] [id number] [place] [id number] Jun, 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 ; Dyslipidemia E78.5 ; Dyspnea on exertion R06.09 ; Family history of cardiovascular disease Z82.49 and Borderline abnormal thyroid function test R94.[address] [id number] [place] [address]33[address]88[address] May, Other emphysema J43.8 ; Smoking F17.200 and Tobacco abuse counseling Z71.[address] C [id number] [place] [address]201 May, Cough R05 and Other emphysema J43.[address] [id number] [place] 65[address] Apr, [address] C [id number] [place] 9267[address]098 Apr, Skin lesion of back L98.9 and Skin lesion L98.[address] [id number] [place] 102561563 Apr, Skin lesion of back L98.9 and Hot flashes N95.[address] C [id number] [place] [id number] Mar, Bronchitis J40 [address] [id number] [place] 6539[address] Mar, Acute pharyngitis, unspecified J02.9 and Upper respiratory infection with cough and congestion J06.[address] C [id number] [place] [address] Mar, Bronchitis J40 ; Shortness of breath R06.02 ; Encounter for screening mammogram for breast cancer Z12.31 and Yeast infection B37.[address] C [id number] [place] 832239333 Jan, Other and unspecified hyperlipidemia 272.4 and Hypothyroidism 244.[address] [id number] [place] 325260963 Dec, [address] C [id number] [place] 053622721 Nov, Diarrhea 787.91 and Nausea 787.02 [facility] [place] [address] [facility] [address] [id number] [place] 773930246 October, Other and unspecified hyperlipidemia 272.4 [facility] [place] [address] [facility] [address] [id number] [place] 616428706 October, Lumbago 724.2 [facility] [place] [facility] [address] [facility] [id number] [place] [address] Sep, [facility] [address] [facility] [id number] [place] [address] Sep, [facility] [address] [facility] [id number] [place] [address] Aug, [facility] [place] [address] [facility] [address] [id number] [place] 716102236 Aug, [facility] [place] [address] [facility] [address] [id number] [place] [id number] Jun, [facility] [address] [facility] [id number] [place] [address] Jun, [facility] [address] [facility] [id number] [place] [address] May, [facility] [address] [facility] [id number] [place] [address] May, [facility] [place] [address] [facility] [address] [id number] [place] 175942163 May, [facility] [place] [address] [facility] [address] [id number] [place] 738180928 Apr, [facility] [address] [facility] [id number] [place] [address] Apr, [facility] [place] [address] [facility] [address] [id number] [place] [id number] Mar, [facility] [address] [facility] [id number] [place] [address] Mar, [facility] [place] [address] [id number] [place] 091527179 Mar, [facility] [place] [facility] [address] [id number] [place] [address] Mar, [facility] [place] [facility] [address] [id number] [place] [address] Mar, [facility] [place] [address] [id number] [place] 192433485 Mar, [facility] [place] [address] [id number] [place] 877913109 Feb, [facility] [place] [facility] [address] [id number] [place] [address] Feb, [facility] [place] [address] [id number] [place] 735548690 Jan, [facility] [place] [facility] [address] [id number] [place] [address] Jan, [facility] [place] [facility] [address] [id number] [facility] [place] [address] Jan, [facility] [place] [facility] [address] [facility] [id number] [facility] [place] [address] Jan, [facility] [place] [address] [id number] [place] 621935950 Jan, [facility] [place] [facility] [address] [id number] [facility] [place] [address] Jan, [facility] [place] [address] [id number] [place] 110066982 Dec, [facility] [place] [facility] [address] [id number] [facility] [place] [address] Dec, [facility] [place] [facility] [address] [facility] [id number] [facility] [place] [address] Dec, [facility] [place] [facility] [address] [facility] [id number] [place] [address] Dec, [facility] [place] [address] [id number] [place] 047593555 Dec, [facility] [place] [address] [id number] [place] 536058568 Dec, [facility] [address] [id number] [place] [address] Dec, [facility] [place] [address] [id number] [place] [id number] October, [facility] [address] [id number] [place] [address] October, [facility] [address] [id number] [place] [address] October, [facility] [place] [address] [facility] [address] [id number] [place] 305403144 Sep, [facility] [place] [facility] [address] [facility] [id number] [facility] [place] [address] Sep, [facility] [place] [address] [facility] [address] [id number] [place] 578049684 Sep, [facility] [address] [facility] [id number] [facility] [place] [address] Sep, [facility] [address] [facility] [id number] [facility] [place] [address] Aug, [facility] [place] [address] [facility] [address] [id number] [place] 761695433 Aug, [facility] [address] [facility] [id number] [facility] [place] [address] Jun, [facility] [address] [id number] [place] [address] Jun, [facility] [place] [address] [id number] [place] 806666856 Jun, [facility] [place] [address] [id number] [place] 625310544 May, [facility] [address] [facility] [id number] [place] [address] May, [facility] [address] [facility] [id number] [place] [address] May, [facility] [place] [address] [facility] [address] [id number] [place] 537[address]7950 May, [facility] [place] [address] [facility] [address] [id number] [place] [id number] Apr, [facility] [address] [facility] [id number] [place] [address] Apr, [facility] [address] [facility] [id number] [place] [address] Feb, [facility] [address] [facility] [id number] [place] [id number] Feb, IMMUNIZATIONS No Known Immunizations SOCIAL HISTORY Never Assessed REASON FOR VISIT Requests return call PLAN OF CARE VITAL SIGNS MEDICATIONS No Known Medications RESULTS Name Result Date Reference Range CT Scan : Brain w/ Contrast 2017-06-09 PROCEDURES No Known procedures INSTRUCTIONS MEDICATIONS ADMINISTERED [...]
--- OUTSIDE RECORDS SUMMARY | 2019-04-01 10:52 | XMS REPORT ---
Author Author IVAN SOLOMON Organization [employer] Address Unknown Phone Unavailable Care Team Providers Care Special Certificate Dictator Name Role Phone IVAN SOLOMON CP Unavailable [...] history of cardiovascular disease Z82.49 Active Medications No Known Medications Results No Known Results Summary Purpose [employer] Submission
--- OUTSIDE RECORDS SUMMARY | 2019-04-01 10:52 | XMS REPORT ---
Author Author SARA MICHEL Organization [employer] Address Unknown Phone Unavailable Care Team Providers Care Commercial Plumber Name Role Phone SARA MICHEL CP Unavailable Allergies No Known Allergies Problems Problem Type Condition Code Onset Dates Condition Status Problem Vitamin D deficiency E55.9 Active Problem Facial rash R21 Active Problem Other and unspecified hyperlipidemia E78.5 Active Problem Lumbago 724.2 Active Problem Other and unspecified hyperlipidemia 272.4 Active Problem Gastroparesis 536.3 Active Problem Essential hypertension, benign 401.1 Active Problem Counseling on substance use and abuse V65.42 Active Problem Other nonspecific abnormal finding 796.9 Active Problem Insomnia, unspecified type G47.00 Active Problem Hypertension I10 Active Problem Familial hypercholesterolemia E78.0 Active Problem Elevated LFTs R79.89 Active Problem Skin lesion of back L98.9 Active Problem Smoking F17.200 Active Problem Nonspecific abnormal results of liver function study 794.8 Active Problem Hot flashes N95.1 Active Problem Family history of cardiovascular disease Z82.49 Active Problem Dyspnea on exertion R06.09 Active Problem Other emphysema J43.8 Active Problem Dyslipidemia E78.5 Active Problem Nonspecific low blood pressure reading 796.3 Active Problem Borderline abnormal thyroid function test R94.6 Active Problem 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
--- OUTSIDE RECORDS SUMMARY | 2019-04-01 10:52 | XMS REPORT ---
Author Author [facility]ENCOURT [facility] Address [address] [place] [address] Care Team Providers Care Marketing Operations Intern Name Role Phone JC BETTENCOURT Unavailable PROBLEMS Type Condition ICD9-CM Code VRC32-PI Code Onset Dates Condition Status SNOMED Code Problem Insomnia, unspecified type G47.00 Active 408550498 Problem Familial hypercholesterolemia E78.0 Active 338728383 Problem Elevated LFTs R79.89 Active 093297257 Problem Primary insomnia F51.01 Active 9392614 Problem Smoking F17.200 Active 81844291 Problem History of thyroidectomy E89.0 Active 268701309 Problem Skin lesion of back L98.9 Active 54401483 Problem Hot flashes N95.1 Active 097983601 Problem Anxiety F41.9 Active 06343602 Problem Gastroparesis 536.3 Active 732081436 Problem Atrial tachycardia I47.1 Active 557430299 Problem Other insomnia G47.09 Active 226459711 Problem Family history of cardiovascular disease Z82.49 Active 491101729 Problem 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 41443853 Problem Other emphysema J43.8 Active 28580305 Problem Borderline abnormal thyroid function test R94.6 Active 067695632 Problem Vitamin D deficiency E55.9 Active 68785653 Problem Other and unspecified hyperlipidemia E78.5 Active 73347882 Problem Dyspnea on exertion R06.09 Active 20555227 Problem Facial rash R21 Active 721500851 Problem Dyslipidemia E78.5 Active 586106071 Problem Hypertension I10 Active 47811110 ALLERGIES No Information SOCIAL HISTORY Never Assessed PLAN OF CARE Activity Details Follow Up prn Reason: VITAL SIGNS MEDICATIONS Unknown Medications RESULTS No Results PROCEDURES Procedure Date Ordered Result Body Site ROUTINE VENIPUNCTURE 2016-09-13 N/A COMPREHEN METABOLIC PANEL September 13, 2016 ASSAY OF CPK IN BLOOD September 13, 2016 ASSAY OF LIPASE September 13, 2016 ASSAY OF VITAMIN D September 13, 2016 ASSAY OF CK (CPK) September 13, 2016 IMMUNIZATIONS No Known Immunizations MEDICAL (GENERAL) [...]
--- OUTSIDE RECORDS SUMMARY | 2019-04-01 10:52 | XMS REPORT ---
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 60371555 Problem Nonspecific low blood pressure reading 796.3 Active 953860980 Problem Vitamin D deficiency E55.9 Active 70522494 Problem Counseling on substance use and abuse V65.42 Active 956317805 Problem Other and unspecified hyperlipidemia E78.5 Active 68870346 Problem Hypertension I10 Active 90473118 Problem Facial rash R21 Active 847468111 Problem Other nonspecific abnormal finding 796.9 Active 223158981 Problem Lumbago 724.2 Active 612941417 Problem Nonspecific abnormal results of liver function study 794.8 Active 341009958 Problem Other and unspecified hyperlipidemia 272.4 Active 93049463 Problem Essential hypertension, benign 401.1 Active 1402947 Problem Elevated LFTs R79.89 Active 433298344 Problem Insomnia, unspecified type G47.00 Active 140051968 Problem Gastroparesis 536.3 Active 670624968 Problem Familial hypercholesterolemia E78.0 Active 311356828 Problem Smoking F17.200 Active 67107600 Problem Other emphysema J43.8 Active 73178133 Problem Hot flashes N95.1 Active 560751922 Problem Skin lesion of back L98.9 Active 68920875 Problem Dyspnea on exertion R06.09 Active 77465353 Problem Dyslipidemia E78.5 Active 470275145 Problem Borderline abnormal thyroid function test R94.6 Active 428997735 Problem Family history of cardiovascular disease Z82.49 Active 353103807 ALLERGIES Substance Reaction Event Type Date Status Promethazine VC/Codeine stomach upset Drug Allergy May, Active Fentanyl anaphylaxis Drug Allergy May, Active SOCIAL HISTORY No smoking Hx information available PLAN OF CARE VITAL SIGNS Height 65 in 2016-05-27 Weight 139.4 lbs 2016-05-27 Heart Rate 76 bpm 2016-05-27 Respiratory Rate 18 2016-05-27 BMI 23.19 kg/m2 2016-05-27 Blood pressure systolic 132 mmHg 2016-05-27 Blood pressure diastolic 76 mmHg 2016-05-27 MEDICATIONS Medication Instructions Dosage Frequency Start Date End Date Duration Status Sucralfate 1 GM Orally Twice a day 1 tablet on an empty stomach 12h Active Lisinopril 10 MG Orally 2 times a day 1 tablet 12h Active Crestor 10 MG Orally Once a day 1 tablet 24h Active pantoprazole 40 mg take 1 tablet (40 mg) by oral route 2 times per day Mar, Active Fish Oil 1000 MG Orally Once a day 1 capsule 24h Active Dicyclomine HCl 20 mg Orally 2 times a day 1 tablet 12h Active D3-50 35408 UNIT Active Spiriva Respimat 2.5 MCG/ACT Inhalation Once a day 2 puffs 24h Active Zetia 10 mg take 1 tablet (10 mg) by oral route once daily Jun, Active Aspirin 81 mg take 1 tablet (81 mg) by oral route once daily Mar, Active RESULTS No Results PROCEDURES Procedure Date Ordered Related Diagnosis Body Site Office Visit, Est Pt., Level 3 May 27, 2016 IMMUNIZATIONS No Known Immunizations
--- OUTSIDE RECORDS SUMMARY | 2019-04-01 10:52 | XMS REPORT ---
Author Author ASHELY OTT [facility] Address [address] [place] [address] Care Team Providers Care Distribution Lead Name Role Phone NAMRATA ASHELY Unavailable PROBLEMS Type Condition ICD9-CM Code CLI88-VV Code Onset Dates Condition Status SNOMED Code Problem Hot flashes N95.1 Active 672391980 Problem Elevated LFTs R79.89 Active 739497550 Problem Skin lesion of back L98.9 Active 10401579 Problem Familial hypercholesterolemia E78.0 Active 556356821 Problem Smoking F17.200 Active 92049567 Problem Gastroparesis K31.84 Active 631826284 Problem Other insomnia G47.09 Active 627302868 Problem Anxiety F41.9 Active 30173103 Problem Chronic obstructive pulmonary disease, unspecified COPD type J44.9 Active 04944476 Problem Essential hypertension I10 Active 41954651 Problem Family history of cardiovascular disease Z82.49 Active 584239345 Problem Borderline abnormal thyroid function test R94.6 Active 263659317 Problem Other emphysema J43.8 Active 88852009 Problem Atrial tachycardia I47.1 Active 449598868 Problem Primary insomnia F51.01 Active 6285756 Problem Thyroiditis E06.9 Active 44925184 Problem History of thyroidectomy E89.0 Active 320216646 Problem 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 01035996 Problem Vitamin D deficiency E55.9 Active 41039739 Problem Dyspnea on exertion R06.09 Active 74681005 Problem Dyslipidemia E78.5 Active 955381746 Problem Hypertension I10 Active 69120443 Problem Insomnia, unspecified type G47.00 Active 278879524 Problem Other and unspecified hyperlipidemia E78.5 Active 09601162 Problem Facial rash R21 Active 520238743 ALLERGIES Substance Reaction Event Type Date Status Promethazine VC/Codeine stomach upset Drug Allergy Jun, Active Fentanyl anaphylaxis Drug Allergy Jun, Active ENCOUNTERS Encounter Location Date Diagnosis [facility] [place] [address] [facility] [address] [id number] [place] [id number] October, Dry mouth, unspecified R68.2 ; Pharyngitis, unspecified etiology J02.9 and Primary insomnia F51.01 [facility] [place] [address] [place] [address] [address] [id number] [place] [id number] October, [facility] [place] [address] [place] [address] [address] [id number] [place] [id number] Sep, [facility] [place] [address] [place] [address] [address] [id number] [place] [id number] Sep, Hemoptysis R04.2 [facility] [place] [address] [place] [address] [address] [id number] [place] [id number] Sep, Primary insomnia F51.01 [facility] [place] [address] [place] [address] [address] [id number] [place] [id number] Sep, Adverse effect of drug, initial encounter T88.7XXA [facility] [place] [address] [place] [address] [address] [id number] [place] [id number] Aug, Adverse effect of drug, initial encounter T88.7XXA [facility] [place] [address] [place] [address] [address] [id number] [place] [id number] Aug, Primary insomnia F51.01 [facility] [place] [address] [place] [address] [address] [id number] [place] [id number] Jul, [facility] [place] [address] [place] [address] [address] [id number] [place] [id number] Jul, Primary insomnia F51.01 [facility] [address] [facility] [id number] [place] [address] Jul, [facility] [place] [address] [place] [address] [address] [id number] [place] [id number] Jul, Atrial tachycardia I47.1 [facility] [place] [address] [place] [address] [address] [id number] [place] [address] Jul, [facility] [place] [address] [place] [address] [address] [id number] [place] [id number] Jun, Flu-like symptoms R68.89 and Chronic obstructive pulmonary disease, unspecified COPD type J44.9 [facility] [place] [address] [facility] [address] [id number] [place] [id number] Jun, [facility] [place] [address] [facility] [address] [id number] [place] [id number] Jun, [facility] [place] [address] [facility] [address] [id number] [place] [id number] Jun, [facility] [place] [address] [facility] [address] [id number] [place] [id number] Jun, Epigastric pain R10.13 ; Diarrhea, unspecified type R19.7 and Non-intractable vomiting without nausea, unspecified vomiting type R11.11 [facility] [address] [facility] [id number] [place] [address] May, [facility] [place] [address] [place] [address] [address] [id number] [place] [id number] May, Chronic nonintractable headache, unspecified headache type R51 [facility] [place] [address] [place] [address] [address] [id number] [place] [id number] May, [facility] [place] [address] [place] [address] C [id number] [place] [id number] May, Essential hypertension I10 ; Thyroiditis E06.9 and Nonintractable episodic headache, unspecified headache type R51 [facility] [place] [address] [place] [address] C [id number] [place], [place] [id number] Feb, Dyslipidemia E78.5 ; Vitamin D deficiency E55.9 and Atherosclerosis of left carotid artery I65.22 [facility] [place] [address] [place] [address] C [id number] [place] [id number] Jan, [facility] [address] [facility] [id number] [place] [address] Dec, [facility] [place] [address] [place] [address] [address] [id number] [place] [id number] Dec, Atrial tachycardia I47.1 ; History of thyroidectomy E89.0 ; Primary insomnia F51.01 and Tobacco use Z72.0 [facility] [address] [place] [address] C [id number] [place] [id number] October, Galactorrhea O92.6 [facility] [place] [address] [place] [address] [address] [id number] [place] [id number] October, [facility] [place] [address] [facility] [address] [id number] [place] [id number] October, [facility] [place] [address] [facility] [address] [id number] [place] 535452770 October, [facility] [place] [address] [place] [address] [address] [id number] [place] 7658[address]152 October, Cough R05 and Other chest pain R07.89 [facility] [place] [address] [place] [address] [address] [id number] [place] [id number] Sep, Dysuria R30.0 ; Acute cystitis without hematuria N30.00 and Chest tightness or pressure R07.89 [facility] [place] [address] [place] [address] [address] [id number] [place] [id number] Sep, [facility] [place] [address] [place] [address] [address] [id number] [place] 139128628 Sep, Acute bilateral low back pain without sciatica M54.5 [facility] [place] [address] [place] [address] [address] [id number] [place], [place] [id number] Aug, Dermatitis L30.9 ; Other insomnia G47.09 and Anxiety F41.9 [facility] [place] [address] [place] [address] [address] [id number] [place] [id number] Aug, [facility] [place] [address] [place] [address] [address] [id number] [place] 923666587 Aug, Hypertension I10 ; Dyslipidemia E78.5 and Vitamin D deficiency E55.9 [facility] [place] [address] [place] [address] [address] [id number] [place] 612962789 Jun, Anxiety F41.9 and Hypertension I10 [facility] [address] [facility] [id number] [place] [address] Jun, [facility] [place] [address] [place] [address] [address] [id number] [place] [id number] Jun, Anxiety F41.9 and Hypertension I10 [facility] [place] [address] [facility] [address] [id number] [place] [id number] Jun, [facility] [place] [address] [facility] [address] [id number] [place] [id number] May, [facility] [place] [address] [facility] [address] [id number] [place] [id number] May, Acute upper back pain M54.9 and Hypertension I10 [facility] [place] [address] [facility] [address] [id number] [place] [id number] Apr, [facility] [place] [address] [place] [address] [address] [id number] [place] [id number] Apr, Mid-back pain, acute M54.9 ; Dyslipidemia E78.5 and Hypertension I10 [facility] [place] [address] [place] [address] [address] [id number] [place] [id number] Apr, [facility] [place] [address] [place] [address] [address] [id number] [place] [id number] Apr, [facility] [place] [address] [place] [address] [address] [id number] [place] [id number] Feb, Familial hypercholesterolemia E78.0 ; Occlusion and stenosis of left carotid artery I65.22 and Vitamin D deficiency E55.9 [facility] [place] [address] [place] [address] [address] [id number] [place] [id number] Feb, [facility] [place] [address] [facility] [address] [id number] [place] [id number] Feb, Fever, unspecified fever cause R50.9 and Acute non-recurrent maxillary sinusitis J01.[address] [facility] [place] [address] [facility] [address] [id number] [place] [id number] Jan, [facility] [place] [address] [facility] [address] [id number] [place] [id number] Jan, [facility] [place] [address] [facility] [address] [id number] [place] [id number] Jan, Nodule of neck R22.1 and Night sweats R61 [facility] [place] [address] [facility] [address] [id number] [place] [id number] Dec, [facility] [place] [address] [place] [address] C [id number] [place] [id number] Dec, [facility] [place] [address] [place] [address] C [id number] [place] [id number] Nov, [facility] [place] [address] [place] [address] C [id number] [place], [place] [id number] Nov, [facility] [place] [address] [place] [address] C [id number] [place] [id number] October, Acute upper respiratory infection, unspecified J06.9 ; Other viral agents as the cause of diseases classified elsewhere B97.89 and Calculus of gallbladder without cholecystitis without obstruction K80.20 [facility] [place] [address] [place] [address] C [id number] [place] [id number] Sep, Insomnia, unspecified type G47.00 ; Hypertension I10 and Elevated LFTs R79.89 [facility] [place] [address] [place] [address] C [id number] [place] [id number] Sep, Bleeding after intercourse N93.0 and Dysuria R30.0 [facility] [place] [address] [place] [address] C [id number] [place] [id number] Aug, Dysuria R30.0 and Pyuria N39.0 [facility] [place] [address] [place] [address] C [id number] [place] [id number] Aug, Hypertension I10 ; Insomnia, unspecified type G47.00 and 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 [facility] [place] [address] [place] [address] C [id number] [place] [id number] 12 Jul, 2015 Pain of upper extremity M79.603 ; Hypertension I10 and Pure hypercholesterolemia E78.0 [facility] [place] [address] [place] [address] C [id number] [place] [id number] 09 Jul, 2015 Physical exam, pre-employment Z02.1 ; Visit for TB skin test Z11.1 ; Facial rash R21 and 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 [facility] [place] [address] [place] [address] C [id number] [place] [id number] 04 Feb, 2016 Other and unspecified hyperlipidemia E78.5 ; Vitamin D deficiency E55.9 and Borderline abnormal thyroid function test R94.[address] C [id number] [place] [id number] Jun, 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 ; Dyslipidemia E78.5 ; Dyspnea on exertion R06.09 ; Family history of cardiovascular disease Z82.49 and Borderline abnormal thyroid function test R94.[address] C [id number] [place], [place] 095171536 May, Other emphysema J43.8 ; Smoking F17.200 and Tobacco abuse counseling Z71.[address] C [id number] [place], [place] 228890156 May, Cough R05 and Other emphysema J43.[address] [id number] [place], [place] [id number] Apr, [address] [id number] [place] 766245911 Apr, Skin lesion of back L98.9 and Skin lesion L98.[address] C [id number] [place] 225776073 Apr, Skin lesion of back L98.9 and Hot flashes N95.[address] [id number] [place] [id number] Mar, Bronchitis J40 [address] [id number] [place], [place] [id number] Mar, Acute pharyngitis, unspecified J02.9 and Upper respiratory infection with cough and congestion J06.[address] C [id number] [place] 290855659 Mar, Bronchitis J40 ; Shortness of breath R06.02 ; Encounter for screening mammogram for breast cancer Z12.31 and Yeast infection B37.[address] C [id number] [place] 746650600 Jan, Other and unspecified hyperlipidemia 272.4 and Hypothyroidism 244.[address] C [id number] [place] 226815444 Dec, [facility] [place] [address] [facility] [address] [id number] [place] 288743509 Nov, Diarrhea 787.91 and Nausea 787.[address] [facility] [place] [address] [facility] [address] [id number] [place] [id number] October, Other and unspecified hyperlipidemia 272.[address] [facility] [place] [address] [facility] [address] [id number] [place] [id number] October, Lumbago 724.2 [facility] [address] [facility] [id number] [place] [address] Sep, [facility] [address] [facility] [id number] [place] [address] Sep, [facility] [address] [facility] [id number] [place] [address] Aug, [facility] [place] [address] [facility] [address] [id number] [place] 628456432 Aug, [facility] [place] [address] [facility] [address] [id number] [place] [id number] Jun, [facility] [address] [facility] [id number] [place] [address] Jun, [facility] [address] [facility] [id number] [place] [address] May, [facility] [place] [facility] [address] [facility] [id number] [place] [address] May, [facility] [place] [address] [facility] [address] [id number] [place] 725441623 May, [facility] [place] [address] [facility] [address] [id number] [place] [id number] Apr, [facility] [address] [facility] [id number] [place] [address] Apr, [facility] [place] [address] [facility] [address] [id number] [place] [id number] Mar, [facility] [place] [facility] [address] [id number] [place] [address] Mar, [facility] [place] [address] [id number] [place] [id number] Mar, [facility] [place] [facility] [address] [id number] [place] [address] Mar, [facility] [place] [facility] [address] [id number] [place] [address] Mar, [facility] [place] [address] [id number] [place] [id number] Mar, [facility] [place] [address] [id number] [place] 067301460 Feb, [facility] [place] [facility] [address] [id number] [facility] [place] [address] Feb, [facility] [place] [address] [id number] [place], [place] 995589958 Jan, [facility] [place] [facility] [address] [id number] [facility] [place] [address] Jan, [facility] [place] [facility] [address] [id number] [facility] [place] [address] Jan, [facility] [place] [facility] [address] [facility] [id number] [facility] [place] [address] Jan, [facility] [place] [address] [facility] [address] [id number] [place] [id number] Jan, [facility] [place] [facility] [address] [id number] [place] [address] Jan, [facility] [place] [address] [id number] [place] [id number] Dec, [facility] [place] [facility] [address] [id number] [place] [address] Dec, [facility] [place] [facility] [address] [facility] [id number] [facility] [place] [address] Dec, [facility] [place] [facility] [address] [id number] [place] [address] Dec, [facility] [place] [address] [id number] [place] 525312512 Dec, [facility] [place] [address] [id number] [place] 049300687 Dec, [facility] [address] [id number] [place] [address] Dec, [facility] [place] [address] [id number] [place] [id number] October, [facility] [place] [facility] [address] [id number] [facility] [place] [address] October, [facility] [place] [facility] [address] [id number] [place] [address] October, [facility] [place] [address] [facility] [address] [id number] [place] 947261783 Sep, [facility] [place] [facility] [address] [id number] [facility] [place] [address] Sep, [facility] [place] [address] [facility] [address] [id number] [place] [id number] Sep, [facility] [place] [facility] [address] [facility] [id number] [place] [address] Sep, [facility] [address] [id number] [facility] [place] [address] Aug, [facility] [place] [address] [facility] [address] [id number] [place] [id number] Aug, [facility] [address] [id number] [place] [address] Jun, [facility] [address] [id number] [place] [address] Jun, [facility] [place] [address] [id number] [place] [id number] Jun, [facility] [place] [address] [id number] [place] [id number] May, [facility] [address] [facility] [id number] [place] [address] May, [facility] [address] [facility] [id number] [place] [address] May, [facility] [place] [address] [facility] [address] [id number] [place] [id number] May, [facility] [place] [address] [facility] [address] [id number] [place] [id number] Apr, [facility] [address] [facility] [id number] [place] [address] Apr, [facility] [address] [facility] [id number] [place] [address] Feb, [facility] [address] [facility] [id number] [place], [place] [id number] Feb, IMMUNIZATIONS No Known Immunizations SOCIAL HISTORY Never Assessed REASON FOR VISIT Stomach ache / flu , has chills, [place] PLAN OF CARE Activity Details Follow Up prn Reason: VITAL SIGNS Height 65 in 2017-06-25 Weight 145.0 lbs 2017-06-25 Temperature 98.5 degrees Fahrenheit 2017-06-25 Heart Rate 95 bpm 2017-06-25 Respiratory Rate 16 2017-06-25 BMI 24.13 kg/m2 2017-06-25 Blood pressure systolic 115 mmHg 2017-06-25 Blood pressure diastolic 72 mmHg 2017-06-25 MEDICATIONS Medication Instructions Dosage Frequency Start Date End Date Duration Status Losartan Potassium 50 MG Orally Once a day 1 tablet 24h Active Sucralfate 1 GM Orally Twice a day 1 tablet on an empty stomach 12h Not-Taking Fish Oil 1000 MG Orally Once a day 1 capsule 24h Active Verapamil HCl ER 180 MG Orally Once a day 1 tablet 24h Active Tizanidine HCl 2 MG Orally Three times a day 1 tablet as needed 8h 05 Sep, 2016 Not-Taking pantoprazole 40 mg take 1 tablet (40 mg) by oral route 2 times per day Mar, Active [id number] [id number] UNIT Active Trazodone HCl 50 mg Orally Once a day 1 tablet at bedtime as needed 24h 30 Active HydrOXYzine HCl 50 mg Orally at bedtime 1 tablet at bedtime Aug, Not-Taking Zofran ODT 4 MG Orally every 8 hrs 1 tablet on the tongue and allow to dissolve 8h Jun, 03 days Active Zetia 10 mg take 1 tablet (10 mg) by oral route once daily Jun, Active Spiriva Respimat 2.5 MCG/ACT INHALE 2 PUFFS DAILY 30 Active Aspirin 81 mg take 1 tablet (81 mg) by oral route once daily Mar, Active Crestor 10 MG Orally Once a day 1 tablet 24h Active RESULTS No Results PROCEDURES Procedure Date Ordered Result Body Site ROUTINE VENIPUNCTURE 2017-06-25 N/A MANUAL CELL COUNT, EACH Jun 25, 2017 ASSAY OF LIPASE Jun 25, 2017 COMPREHEN METABOLIC PANEL Jun 25, 2017 X-RAY EXAM ABDOMEN 2 VIEWS Jun 25, 2017 INSTRUCTIONS MEDICATIONS ADMINISTERED No Known Medications [...]
--- OUTSIDE RECORDS SUMMARY | 2019-04-01 10:52 | XMS REPORT ---
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 Problem Dyslipidemia E78.5 Active Problem Insomnia, unspecified type G47.00 Active Problem Nonspecific low blood pressure reading 796.3 Active Problem Hypertension I10 Active Assessment Nodule of neck R22.1 Active Assessment Night sweats R61 Active Problem Elevated LFTs R79.89 Active Problem [...] Instructions Start Date End Date Status Dosage Effexor XR [facility] [address]-33 75 MG Orally Once a day Apr 25, 2015 1 capsule with food Albuterol Sulfate [facility] [address]-02 2.5 mg /3 mL (0.083 %) Apr 25, 2014 1 Each by Inhalation route every 4 hours for cough and wheeze PRN for wheezing or cough Diltiazem CD [facility] [address]-42 120 MG Orally Once a day 1 capsule Fish Oil [facility] [address]-04 1000 MG Orally Once a day 1 capsule Ambien [facility] [address]-00 5 mg Orally Once a day at bedtime PRN for sleep September 12, 2015 Take 1 tablet pantoprazole [facility] 0 40 mg Apr 08, 2014 take 1 tablet (40 mg) by oral route 2 times per day Zana Giordano [facility] [address]-59 100 MG Orally Three times a day November 03, 2015 1 capsule as needed Spiriva Respimat [facility] [id number] 2.5 MCG/ACT Inhalation Once a day 2 puffs D3-50 [facility] [address]-06 05538 UNIT Orally not defined Crestor [facility] [address]-50 10 MG Orally Once a day 1 tablet Aspirin [facility] [address]-23 81 mg Apr 08, 2014 take 1 tablet (81 mg) by oral route once daily Cephalexin [facility] [address]-04 500 MG Orally Twice a day 1 capsule Lisinopril [facility] [address]-30 5 MG Orally Once a day September 12, 2015 1 tablet Albuterol Sulfate [facility] [address]-81 108 (90 Base) MCG/ACT Inhalation every 4 hrs Apr 03, 2015 1 puff as needed Zetia [facility] [address]-77 10 mg Jul 11, 2014 take 1 tablet (10 mg) by oral route once daily Procedures Procedure Coding System Code Date Office Visit, Maykel Pt., Level 3 CPT-4 87838 Jan 29, 2016 Vital Signs Date/Time: Jan 29, 2016 Cardiac Monitoring Heart Rate 84 bpm Weight 142 lbs Height 65 in BMI 23.63 Index Blood Pressure Diastolic 82 mmHg Blood Pressure Systolic 120 mmHg Results No Known Results Summary Purpose eClinicalWorks Submission
--- OUTSIDE RECORDS SUMMARY | 2019-04-01 10:53 | XMS REPORT ---
Author Author KEVIN BEJARANO [facility] Address [address] [place] [address] Care Team Providers Care Computer Support Specialist Instructor Name Role Phone KEVIN BEJARANO Unavailable PROBLEMS Type Condition ICD9-CM Code CLC60-MZ Code Onset Dates Condition Status SNOMED Code Problem Hot flashes N95.1 Active 783769791 Problem Elevated LFTs R79.89 Active 163824259 Problem Skin lesion of back L98.9 Active 92106280 Problem Familial hypercholesterolemia E78.0 Active 868136394 Problem Smoking F17.200 Active 92774397 Problem Gastroparesis 536.3 Active 662247540 Problem Other insomnia G47.09 Active 957155535 Problem Anxiety F41.9 Active 28016218 Problem Chronic obstructive pulmonary disease, unspecified COPD type J44.9 Active 46071005 Problem Essential hypertension I10 Active 84344742 Problem Family history of cardiovascular disease Z82.49 Active 267908937 Problem Borderline abnormal thyroid function test R94.6 Active 243274972 Problem Other emphysema J43.8 Active 28438762 Problem Atrial tachycardia I47.1 Active 105406358 Problem Primary insomnia F51.01 Active 4125151 Problem Thyroiditis E06.9 Active 64138886 Problem History of thyroidectomy E89.0 Active 226719792 Problem 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 89440085 Problem Vitamin D deficiency E55.9 Active 99258858 Problem Dyspnea on exertion R06.09 Active 86477791 Problem Dyslipidemia E78.5 Active 461071200 Problem Hypertension I10 Active 94913255 Problem Insomnia, unspecified type G47.00 Active 389286119 Problem Other and unspecified hyperlipidemia E78.5 Active 63064358 Problem Facial rash R21 Active 568889293 ALLERGIES No Information ENCOUNTERS Encounter Location Date Diagnosis [facility] [place] [address] [facility] [address] [id number] [place] [id number] Sep, [facility] [place] [address] [facility] [address] [id number] [place] [id number] Sep, Hemoptysis R04.2 [facility] [place] [address] [place] [address] [address] [id number] [place] [address]266685 Sep, Primary insomnia F51.01 [facility] [place] [address] [place] [address] [address] [id number] [place] [address] Sep, Adverse effect of drug, initial encounter T88.7XXA [facility] [place] [address] [place] [address] [address] [id number] [place] [address] Aug, Adverse effect of drug, initial encounter T88.7XXA [facility] [place] [address] [place] [address] [address] [id number] [place] [id number] Aug, Primary insomnia F51.01 [facility] [place] [address] [place] [address] [address] [id number] [place] [id number] Jul, [facility] [place] [address] [place] [address] [address] [id number] [place] [address] Jul, Primary insomnia F51.01 [facility] [address] [facility] [id number] [facility] [place] [address] Jul, [facility] [place] [address] [place] [address] [address] [id number] [place] [id number] Jul, Atrial tachycardia I47.1 [facility] [place] [address] [place] [address] [address] [id number] [place] [id number] Jul, [facility] [place] [address] [place] [address] [address] [id number] [place] [address] Jun, Flu-like symptoms R68.89 and Chronic obstructive pulmonary disease, unspecified COPD type J44.9 [facility] [place] [address] [place] [address] [address] [id number] [place] 6[address] Jun, [facility] [place] [address] [place] [address] [address] [id number] [place] [id number] Jun, [facility] [place] [address] [place] [address] [address] [id number] [place] [address]76 Jun, [facility] [place] [address] [place] [address] [address] [id number] [place] [address]67[address] Jun, Epigastric pain R10.13 ; Diarrhea, unspecified type R19.7 and Non-intractable vomiting without nausea, unspecified vomiting type R11.11 [facility] [address] [facility] [id number] [place] [address] 15 May, 2017 [facility] [place] [address] [facility] [address] [id number] [place] [id number] May, Chronic nonintractable headache, unspecified headache type R51 [facility] [place] [address] [facility] [address] [id number] [place] [id number] May, [facility] [place] [address] [place] [address] [address] [id number] [place] [address] May, Essential hypertension I10 ; Thyroiditis E06.9 and Nonintractable episodic headache, unspecified headache type R51 [facility] [place] [address] [place] [address] [address] [id number] [place] [address]85644[address] Feb, Dyslipidemia E78.5 ; Vitamin D deficiency E55.9 and Atherosclerosis of left carotid artery I65.22 [facility] [place] [address] [facility] [address] [id number] [place] [id number] Jan, [facility] [address] [facility] [id number] [place] [address] Dec, [facility] [place] [address] [place] [address] C [id number] [place] [address]133 Dec, Atrial tachycardia I47.1 ; History of thyroidectomy E89.0 ; Primary insomnia F51.01 and Tobacco use Z72.0 [facility] [place] [address] [facility] [address] [id number] [place] [id number] October, Galactorrhea O92.6 [facility] [place] [address] [facility] [address] [id number] [place] [address] October, [facility] [place] [address] [facility] [address] [id number] [place] [id number] October, [facility] [place] [address] [facility] [address] [id number] [place] [address] October, [facility] [place] [address] [facility] [address] [id number] [place] [address] October, Cough R05 and Other chest pain R07.89 [facility] [place] [address] [place] [address] [address] [id number] [place] [address] Sep, Dysuria R30.0 ; Acute cystitis without hematuria N30.00 and Chest tightness or pressure R07.89 [facility] [place] [address] [place] [address] [address] [id number] [place] 909149532 Sep, [facility] [place] [address] [place] [address] [address] [id number] [place] 844[address]263 Sep, Acute bilateral low back pain without sciatica M54.5 [facility] [place] [address] [place] [address] [address] [id number] [place] 88[address] Aug, Dermatitis L30.9 ; Other insomnia G47.09 and Anxiety F41.9 [facility] [place] [address] [place] [address] [address] [id number] [place] [address] Aug, [facility] [place] [address] [place] [address] [address] [id number] [place] 8947[address]442 Aug, Hypertension I10 ; Dyslipidemia E78.5 and Vitamin D deficiency E55.9 [facility] [place] [address] [place] [address] [address] [id number] [place] 36[address]687 Jun, Anxiety F41.9 and Hypertension I10 [facility] [address] [facility] [id number] [place] [address] Jun, [facility] [place] [address] [place] [address] [address] [id number] [place] [id number] Jun, Anxiety F41.9 and Hypertension I10 [facility] [place] [address] [place] [address] [address] [id number] [place] [id number] Jun, [facility] [place] [address] [place] [address] [address] [id number] [place] 446[address]7612 May, [facility] [place] [address] [place] [address] [address] [id number] [place] [id number] May, Acute upper back pain M54.9 and Hypertension I10 [facility] [place] [address] [place] [address] [address] [id number] [place] 8[address]89[address] Apr, [facility] [place] [address] [facility] [address] [id number] [place] 029798[address] Apr, Mid-back pain, acute M54.9 ; Dyslipidemia E78.5 and Hypertension I10 [facility] [place] [address] [facility] [address] [id number] [place] [address] Apr, [facility] [place] [address] [facility] [address] [id number] [place] [id number] Apr, [facility] [place] [address] [facility] [address] [id number] [place] [address]2045 Feb, Familial hypercholesterolemia E78.0 ; Occlusion and stenosis of left carotid artery I65.22 and Vitamin D deficiency E55.9 [facility] [place] [address] [facility] [address] [id number] [place] [address] Feb, [facility] [place] [address] [facility] [address] [id number] [place] [address] Feb, Fever, unspecified fever cause R50.9 and Acute non-recurrent maxillary sinusitis J01.00 [facility] [place] [address] [facility] [address] [id number] [place] [id number] Jan, [facility] [place] [address] [facility] [address] [id number] [place] 47438[address]39 Jan, [facility] [place] [address] [facility] [address] [id number] [place] 874[address]206 Jan, Nodule of neck R22.1 and Night sweats R61 [facility] [place] [address] [facility] [address] [id number] [place] [id number] Dec, [facility] [place] [address] [facility] [address] [id number] [place] [address]2557 Dec, [facility] [place] [address] [facility] [address] [id number] [place] [id number] Nov, [facility] [place] [address] [facility] [address] [id number] [place] 012851650 Nov, [facility] [place] [address] [facility] [address] [id number] [place] 823338987 October, Acute upper respiratory infection, unspecified J06.9 ; Other viral agents as the cause of diseases classified elsewhere B97.89 and Calculus of gallbladder without cholecystitis without obstruction K80.[address] [id number] [place] [address] Sep, Insomnia, unspecified type G47.00 ; Hypertension I10 and Elevated LFTs R79.[address] [id number] [place] 8[address]110[address] Sep, Bleeding after intercourse N93.0 and Dysuria R30.[address] [id number] [place] 977[address]91[address] Aug, Dysuria R30.0 and Pyuria N39.[address] [id number] [place] 867[address] Aug, Hypertension I10 ; Insomnia, unspecified type G47.00 and 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 [id number] [place] 623244507 Jul, Pain of upper extremity M79.603 ; Hypertension I10 and Pure hypercholesterolemia E78.[address] [id number] [place] 855644339 09 Jul, 2015 Physical exam, pre-employment Z02.1 ; Visit for TB skin test Z11.1 ; Facial rash R21 and 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 [id number] [place] 166157368 04 Jul, 2015 Other and unspecified hyperlipidemia E78.5 ; Vitamin D deficiency E55.9 and Borderline abnormal thyroid function test R94.[address] [id number] [place] 980276242 Jun, 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 ; Dyslipidemia E78.5 ; Dyspnea on exertion R06.09 ; Family history of cardiovascular disease Z82.49 and Borderline abnormal thyroid function test R94.[address] [id number] [place] 14[address]957[address] May, Other emphysema J43.8 ; Smoking F17.200 and Tobacco abuse counseling Z71.[address] [id number] [place] [id number] May, Cough R05 and Other emphysema J43.8 [facility] [address] [id number] [place] [id number] Apr, [facility] [address] [id number] [place] [address] Apr, Skin lesion of back L98.9 and Skin lesion L98.[address] [id number] [place] 417[address]47[address] Apr, Skin lesion of back L98.9 and Hot flashes N95.[address] [id number] [place] [address] Mar, Bronchitis J40 [address] [id number] [place] [address] Mar, Acute pharyngitis, unspecified J02.9 and Upper respiratory infection with cough and congestion J06.[address] [id number] [place] [address] Mar, Bronchitis J40 ; Shortness of breath R06.02 ; Encounter for screening mammogram for breast cancer Z12.31 and Yeast infection B37.[address] [id number] [place] [id number] Jan, Other and unspecified hyperlipidemia 272.4 and Hypothyroidism 244.[address] [id number] [place], [place] 157[address] Dec, [address] [id number] [place] [address]56[address] Nov, Diarrhea 787.91 and Nausea 787.02 [facility] [address] [id number] [place] 64[address] October, Other and unspecified hyperlipidemia 272.4 [facility] [address] [id number] [place] [id number] October, Lumbago 724.2 [facility] [place] [facility] [address] [id number] [place] [address] 14 Sep, 2014 [facility] [place] [facility] [address] [facility] [id number] [place] [address] Sep, [facility] [place] [facility] [address] [facility] [id number] [place] [address] Aug, [facility] [place] [address] [facility] [address] [id number] [place] [id number] Aug, [facility] [place] [address] [facility] [address] [id number] [place] [id number] Jun, [facility] [place] [facility] [address] [facility] [id number] [place] [address] Jun, [facility] [place] [facility] [address] [facility] [id number] [place] [address] May, [facility] [place] [facility] [address] [facility] [id number] [place] [address] May, [facility] [place] [address] [id number] [place] [id number] May, [facility] [place] [address] [facility] [address] [id number] [place] [address]1369 Apr, [facility] [place] [facility] [address] [facility] [id number] [place] [address] Apr, [facility] [place] [address] [facility] [address] [id number] [place] [id number] Mar, [facility] [place] [facility] [address] [id number] [facility] [place] [address] Mar, [facility] [place] [address] [id number] [place] [id number] Mar, [facility] [place] [facility] [address] [facility] [id number] [address] Mar, [facility] [place] [facility] [address] [facility] [id number] [place] [address] Mar, [facility] [place] [address] [id number] [place] [id number] Mar, [facility] [place] [address] [id number] [place] [id number] Feb, [facility] [place] [facility] [address] [id number] [place] [address] Feb, [facility] [place] [address] [facility] [address] [id number] [place] [id number] Jan, [facility] [place] [facility] [address] [id number] [place] [address] Jan, [facility] [place] [facility] [address] [facility] [id number] [facility] [place] [address] Jan, [facility] [place] [facility] [address] [facility] [id number] [facility] [place] [address] Jan, [facility] [place] [address] [facility] [address] [id number] [place] [id number] Jan, [facility] [place] [facility] [address] [facility] [id number] [facility] [place] [address] Jan, [facility] [place] [address] [facility] [address] [id number] [place] [id number] Dec, [facility] [place] [facility] [address] [facility] [id number] [facility] [place] [address] Dec, [facility] [place] [facility] [address] [facility] [id number] [facility] [place] [address] Dec, [facility] [place] [facility] [address] [id number] [place] [address] Dec, [facility] [place] [address] [id number] [place] [id number] Dec, [facility] [place] [address] [facility] [address] [id number] [place] 841197914 Dec, [facility] [place] [facility] [address] [facility] [id number] [facility] [place] [address] Dec, [facility] [place] [address] [id number] [place] 860766468 October, [facility] [address] [id number] [place] [address] October, [facility] [address] [id number] [facility] [place] [address] October, [facility] [place] [address] [id number] [place] 983207409 Sep, [facility] [address] [id number] [place] [address] Sep, [facility] [place] [address] [id number] [place] 75[address]28430 Sep, [facility] [address] [id number] [facility] [place] [address] Sep, [facility] [address] [id number] [facility] [place] [address] Aug, [facility] [place] [address] [id number] [place] [id number] Aug, [facility] [address] [id number] [place] [address] Jun, [facility] [address] [id number] [facility] [place] [address] Jun, [facility] [place] [address] [id number] [place] 715558004 Jun, [facility] [place] [address] [id number] [place] 137245725 May, [facility] [place] [facility] [address] [id number] [facility] [place] [address] May, [facility] [place] [facility] [address] [id number] [place] [address] May, [facility] [place] [address] [id number] [place] [id number] May, [facility] [place] [address] [id number] [place] [id number] Apr, [facility] [address] [facility] [id number] [place] [address] Apr, [facility] [address] [facility] [id number] [place] [address] Feb, [facility] [place] [address] [facility] [address] [id number] [place] [id number] Feb, IMMUNIZATIONS No Known Immunizations SOCIAL HISTORY Never Assessed REASON FOR VISIT Lab (walk-in). Charles PLAN OF CARE Activity Details Follow Up prn Reason: VITAL SIGNS MEDICATIONS Unknown Medications RESULTS No Results PROCEDURES Procedure Date Ordered Result Body Site ROUTINE VENIPUNCTURE 2017-03-10 N/A LIPID PANEL Mar 10, 2017 ASSAY OF CPK IN BLOOD Mar 10, 2017 ASSAY OF VITAMIN D Mar 10, 2017 COMPREHEN METABOLIC PANEL Mar 10, 2017 ASSAY OF CK (CPK) Mar 10, 2017 INSTRUCTIONS MEDICATIONS ADMINISTERED No Known [...]
--- OUTSIDE RECORDS SUMMARY | 2019-04-01 10:53 | XMS REPORT ---
Author Author KEVIN BEJARANO [facility] Address [address] [place] [address] Care Team Providers Care Wardrobe Assistant Name Role Phone KEVIN BEJARANO Unavailable PROBLEMS Type Condition ICD9-CM Code VZQ66-GY Code Onset Dates Condition Status SNOMED Code Problem Hot flashes N95.1 Active 899464270 Problem Elevated LFTs R79.89 Active 248351614 Problem Skin lesion of back L98.9 Active 50349666 Problem Familial hypercholesterolemia E78.0 Active 159640049 Problem Smoking F17.200 Active 87477302 Problem Gastroparesis K31.84 Active 478097381 Problem Other insomnia G47.09 Active 189385168 Problem Anxiety F41.9 Active 57454850 Problem Chronic obstructive pulmonary disease, unspecified COPD type J44.9 Active 85514861 Problem Essential hypertension I10 Active 15099910 Problem Family history of cardiovascular disease Z82.49 Active 151092557 Problem Borderline abnormal thyroid function test R94.6 Active 857891883 Problem Other emphysema J43.8 Active 55223706 Problem Atrial tachycardia I47.1 Active 064682522 Problem Primary insomnia F51.01 Active 2892240 Problem Thyroiditis E06.9 Active 08209204 Problem History of thyroidectomy E89.0 Active 963061147 Problem 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 73472676 Problem Vitamin D deficiency E55.9 Active 88114801 Problem Dyspnea on exertion R06.09 Active 09453232 Problem Dyslipidemia E78.5 Active 819879356 Problem Hypertension I10 Active 40167998 Problem Insomnia, unspecified type G47.00 Active 318437102 Problem Other and unspecified hyperlipidemia E78.5 Active 59657316 Problem Facial rash R21 Active 105838796 ALLERGIES No Information ENCOUNTERS Encounter Location Date Diagnosis [facility] [place] [address] [facility] C [id number] [place] [id number] October, Dry mouth, unspecified R68.2 ; Pharyngitis, unspecified etiology J02.9 and Primary insomnia F51.01 [facility] [place] [address] [place] [address] [address] [id number] [place] [id number] October, [facility] [place] [address] [place] [address] [address] [id number] [place] [id number] Sep, [facility] [place] [address] [place] [address] [address] [id number] [place] 8[address]260[address] Sep, Hemoptysis R04.2 [facility] [place] [address] [place] [address] [address] [id number] [place] [id number] Sep, Primary insomnia F51.01 [facility] [place] [address] [place] [address] [address] [id number] [place] 7[address]571632 Sep, Adverse effect of drug, initial encounter T88.7XXA [facility] [place] [address] [place] [address] [address] [id number] [place] [id number] Aug, Adverse effect of drug, initial encounter T88.7XXA [facility] [place] [address] [place] [address] [address] [id number] [place] [id number] Aug, Primary insomnia F51.01 [facility] [place] [address] [place] [address] [address] [id number] [place] [id number] Jul, [facility] [place] [address] [place] [address] [address] [id number] [place] [id number] Jul, Primary insomnia F51.01 [facility] [address] [facility] [id number] [place] [address] Jul, [facility] [place] [address] [place] [address] [address] [id number] [place] 1934[address] Jul, Atrial tachycardia I47.1 [facility] [place] [address] [place] [address] [address] [id number] [place] [id number] Jul, [facility] [place] [address] [place] [address] [address] [id number] [place] [address] Jun, Flu-like symptoms R68.89 and Chronic obstructive pulmonary disease, unspecified COPD type J44.9 [facility] [place] [address] [place] [address] [address] [id number] [place] [id number] Jun, [facility] [place] [address] [facility] [address] [id number] [place] [id number] Jun, [facility] [place] [address] [facility] [address] [id number] [place] [id number] Jun, [facility] [place] [address] [place] [address] [address] [id number] [place] 399[address]79 Jun, Epigastric pain R10.13 ; Diarrhea, unspecified type R19.7 and Non-intractable vomiting without nausea, unspecified vomiting type R11.11 [facility] [address] [facility] [id number] [place] [address] May, [facility] [place] [address] [place] [address] C [id number] [place] [id number] May, Chronic nonintractable headache, unspecified headache type R51 [facility] [place] [address] [place] [address] C [id number] [place] [id number] May, [facility] [place] [address] [place] [address] C [id number] [place] [id number] May, Essential hypertension I10 ; Thyroiditis E06.9 and Nonintractable episodic headache, unspecified headache type R51 [facility] [place] [address] [place] [address] C [id number] [place] 879797154 Feb, Dyslipidemia E78.5 ; Vitamin D deficiency E55.9 and Atherosclerosis of left carotid artery I65.22 [facility] [place] [address] [place] [address] C [id number] [place] [id number] Jan, [facility] [address] [facility] [id number] [place] [address] Dec, [facility] [place] [address] [place] [address] C [id number] [place] [id number] Dec, Atrial tachycardia I47.1 ; History of thyroidectomy E89.0 ; Primary insomnia F51.01 and Tobacco use Z72.0 [facility] [place] [address] [place] [address] [address] [id number] [place] 2526[address] October, Galactorrhea O92.6 [facility] [address] [place] [address] C [id number] [place] [id number] October, [facility] [place] [address] [facility] [address] [id number] [place] [id number] October, [facility] [place] [address] [facility] [address] [id number] [place] [address]9501 October, [facility] [place] [address] [place] [address] [address] [id number] [place] [address] October, Cough R05 and Other chest pain R07.89 [facility] [place] [address] [place] [address] [address] [id number] [place] [id number] Sep, Dysuria R30.0 ; Acute cystitis without hematuria N30.00 and Chest tightness or pressure R07.89 [facility] [place] [address] [place] [address] [address] [id number] [place] [id number] Sep, [facility] [place] [address] [place] [address] [address] [id number] [place] [id number] Sep, Acute bilateral low back pain without sciatica M54.5 [facility] [place] [address] [place] [address] [address] [id number] [place] 049[address] Aug, Dermatitis L30.9 ; Other insomnia G47.09 and Anxiety F41.9 [facility] [place] [address] [place] [address] [address] [id number] [place] [id number] Aug, [facility] [place] [address] [place] [address] [address] [id number] [place] 400566081 Aug, Hypertension I10 ; Dyslipidemia E78.5 and Vitamin D deficiency E55.9 [facility] [place] [address] [place] [address] [address] [id number] [place] [id number] Jun, Anxiety F41.9 and Hypertension I10 [facility] [address] [facility] [id number] [place] [address] Jun, [facility] [place] [address] [place] [address] [address] [id number] [place] 197680387 Jun, Anxiety F41.9 and Hypertension I10 [facility] [place] [address] [place] [address] [address] [id number] [place] [id number] Jun, [facility] [place] [address] [facility] [address] [id number] [place] [id number] May, [facility] [place] [address] [facility] [address] [id number] [place] [id number] May, Acute upper back pain M54.9 and Hypertension I10 [facility] [place] [address] [facility] [address] [id number] [place] 712055701 Apr, [facility] [place] [address] [facility] [address] [id number] [place] 548[address]279 Apr, Mid-back pain, acute M54.9 ; Dyslipidemia E78.5 and Hypertension I10 [facility] [place] [address] [place] [address] [address] [id number] [place] [id number] Apr, [facility] [place] [address] [facility] [address] [id number] [place] 639066933 Apr, [facility] [place] [address] [facility] [address] [id number] [place] 169[address] Feb, Familial hypercholesterolemia E78.0 ; Occlusion and stenosis of left carotid artery I65.22 and Vitamin D deficiency E55.9 [facility] [place] [address] [place] [address] [address] [id number] [place] [id number] Feb, [facility] [place] [address] [place] [address] [address] [id number] [place] [id number] Feb, Fever, unspecified fever cause R50.9 and Acute non-recurrent maxillary sinusitis J01.00 [facility] [place] [address] [facility] [address] [id number] [place] [id number] Jan, [facility] [place] [address] [facility] [address] [id number] [place] 449331186 Jan, [facility] [place] [address] [facility] [address] [id number] [place] 0972020[address] Jan, Nodule of neck R22.1 and Night sweats R61 [facility] [place] [address] [facility] [address] [id number] [place] [id number] Dec, [facility] [place] [address] [facility] [address] [id number] [place] 650385242 Dec, [facility] [place] [address] [place] [address] C [id number] [place] [id number] Nov, [facility] [place] [address] [place] [address] C [id number] [place] [id number] Nov, [facility] [place] [address] [place] [address] C [id number] [place] [id number] October, Acute upper respiratory infection, unspecified J06.9 ; Other viral agents as the cause of diseases classified elsewhere B97.89 and Calculus of gallbladder without cholecystitis without obstruction K80.20 [facility] [place] [address] [place] [address] C [id number] [place] [id number] Sep, Insomnia, unspecified type G47.00 ; Hypertension I10 and Elevated LFTs R79.89 [facility] [address] [place] [address] C [id number] [place] [id number] Sep, Bleeding after intercourse N93.0 and Dysuria R30.0 [facility] [place] [address] [place] [address] C [id number] [place] [id number] Aug, Dysuria R30.0 and Pyuria N39.0 [facility] [place] [address] [place] [address] C [id number] [place] 504892487 Aug, Hypertension I10 ; Insomnia, unspecified type G47.00 and 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 [facility] [place] [address] [place] [address] C [id number] [place] [id number] 12 Jul, 2015 Pain of upper extremity M79.603 ; Hypertension I10 and Pure hypercholesterolemia E78.0 [facility] [place] [address] [place] [address] C [id number] [place] [id number] 09 Jul, 2015 Physical exam, pre-employment Z02.1 ; Visit for TB skin test Z11.1 ; Facial rash R21 and 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 [facility] [place] [address] [place] [address] C [id number] [place] [id number] 04 Jul, 2015 Other and unspecified hyperlipidemia E78.5 ; Borderline abnormal thyroid function test R94.6 and Vitamin D deficiency E55.9 [facility] [address] C [id number] [place] [address] Jun, 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 ; Dyslipidemia E78.5 ; Dyspnea on exertion R06.09 ; Family history of cardiovascular disease Z82.49 and Borderline abnormal thyroid function test R94.[address] C [id number] [place] [id number] May, Other emphysema J43.8 ; Smoking F17.200 and Tobacco abuse counseling Z71.[address] C [id number] [place] [id number] May, Cough R05 and Other emphysema J43.[address] [id number] [place] [address] Apr, [address] C [id number] [place] 388[address]186 Apr, Skin lesion of back L98.9 and Skin lesion L98.[address] [id number] [place] 3227[address] Apr, Skin lesion of back L98.9 and Hot flashes N95.[address] C [id number] [place] 614[address] Mar, Bronchitis J40 [address] [id number] [place] 1937[address] Mar, Acute pharyngitis, unspecified J02.9 and Upper respiratory infection with cough and congestion J06.[address] C [id number] [place] 129[address] Mar, Bronchitis J40 ; Shortness of breath R06.02 ; Encounter for screening mammogram for breast cancer Z12.31 and Yeast infection B37.[address] C [id number] [place] [id number] Jan, Other and unspecified hyperlipidemia 272.4 and Hypothyroidism 244.[address] [id number] [place] [id number] Dec, [address] C [id number] [place] 743010614 Nov, Diarrhea 787.91 and Nausea 787.02 [facility] [place] [address] [facility] [address] [id number] [place] [address]65946445 October, Other and unspecified hyperlipidemia 272.4 [facility] [place] [address] [facility] [address] [id number] [place] 118011266 October, Lumbago 724.2 [facility] [place] [facility] [address] [facility] [id number] [place] [address] Sep, [facility] [address] [facility] [id number] [place] [address] Sep, [facility] [address] [facility] [id number] [place] [address] Aug, [facility] [place] [address] [facility] [address] [id number] [place] 5[address] Aug, [facility] [place] [address] [facility] [address] [id number] [place] [id number] Jun, [facility] [address] [facility] [id number] [place] [address] Jun, [facility] [address] [facility] [id number] [place] [address] May, [facility] [address] [facility] [id number] [place] [address] May, [facility] [place] [address] [facility] [address] [id number] [place] [id number] May, [facility] [place] [address] [facility] [address] [id number] [place] [id number] Apr, [facility] [address] [facility] [id number] [place] [address] Apr, [facility] [place] [address] [facility] [address] [id number] [place] 158257840 Mar, [facility] [address] [facility] [id number] [place] [address] Mar, [facility] [place] [address] [id number] [place] 707[address]7832 Mar, [facility] [place] [facility] [address] [id number] [place] [address] Mar, [facility] [place] [facility] [address] [id number] [place] [address] Mar, [facility] [place] [address] [id number] [place] 942250474 Mar, [facility] [place] [address] [id number] [place] [id number] Feb, [facility] [place] [facility] [address] [id number] [place] [address] Feb, [facility] [place] [address] [id number] [place] [id number] Jan, [facility] [place] [facility] [address] [id number] [place] [address] Jan, [facility] [place] [facility] [address] [id number] [facility] [place] [address] Jan, [facility] [place] [facility] [address] [facility] [id number] [facility] [place] [address] Jan, [facility] [place] [address] [id number] [place] [id number] Jan, [facility] [place] [facility] [address] [id number] [facility] [place] [address] Jan, [facility] [place] [address] [id number] [place] 08731988[address] Dec, [facility] [place] [facility] [address] [id number] [facility] [place] [address] Dec, [facility] [place] [facility] [address] [facility] [id number] [facility] [place] [address] Dec, [facility] [place] [facility] [address] [facility] [id number] [place] [address] Dec, [facility] [place] [address] [id number] [place] 319810007 Dec, [facility] [place] [address] [id number] [place] 792653455 Dec, [facility] [address] [id number] [place] [address] Dec, [facility] [place] [address] [id number] [place] 043469472 October, [facility] [address] [id number] [place] [address] October, [facility] [address] [id number] [place] [address] October, [facility] [place] [address] [facility] [address] [id number] [place] [id number] Sep, [facility] [place] [facility] [address] [facility] [id number] [facility] [place] [address] Sep, [facility] [place] [address] [facility] [address] [id number] [place] 042003995 Sep, [facility] [address] [facility] [id number] [facility] [place] [address] Sep, [facility] [address] [facility] [id number] [facility] [place] [address] Aug, [facility] [place] [address] [facility] [address] [id number] [place] 983104145 Aug, [facility] [address] [facility] [id number] [facility] [place] [address] Jun, [facility] [address] [id number] [place] [address] Jun, [facility] [place] [address] [id number] [place] 529253233 Jun, [facility] [place] [address] [id number] [place] 817235150 May, [facility] [address] [facility] [id number] [place] [address] 17 May, 2013 [facility] [address] [facility] [id number] [place] [address] May, [facility] [address] [facility] [address] [id number] [place] [id number] May, [facility] [place] [address] [facility] [address] [id number] [place] [id number] Apr, [facility] [address] [facility] [id number] [place] [address] Apr, [facility] [address] [facility] [id number] [place] [address] Feb, [facility] [address] [facility] [id number] [place] 716459454 Feb, IMMUNIZATIONS No Known Immunizations SOCIAL HISTORY Never Assessed REASON FOR VISIT PA CT brain with & US neck PLAN OF CARE VITAL SIGNS MEDICATIONS No [...]
--- OUTSIDE RECORDS SUMMARY | 2019-04-01 10:53 | XMS REPORT ---
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
--- OUTSIDE RECORDS SUMMARY | 2019-04-01 10:54 | XMS REPORT ---
Author Author KEVIN BEJARANO [facility] Address [address] [place] [address] Care Team Providers Care French Teacher Name Role Phone KEVIN BEJARANO Unavailable PROBLEMS Type Condition ICD9-CM Code SYR02-BQ Code Onset Dates Condition Status SNOMED Code Problem Hot flashes N95.1 Active 339997724 Problem Elevated LFTs R79.89 Active 695926020 Problem Skin lesion of back L98.9 Active 62888364 Problem Familial hypercholesterolemia E78.0 Active 952087556 Problem Smoking F17.200 Active 09362351 Problem Gastroparesis 536.3 Active 999536215 Problem Other insomnia G47.09 Active 004098016 Problem Anxiety F41.9 Active 29247376 Problem Chronic obstructive pulmonary disease, unspecified COPD type J44.9 Active 43454400 Problem Essential hypertension I10 Active 47959901 Problem Family history of cardiovascular disease Z82.49 Active 630761752 Problem Borderline abnormal thyroid function test R94.6 Active 886926195 Problem Other emphysema J43.8 Active 49157474 Problem Atrial tachycardia I47.1 Active 342322413 Problem Primary insomnia F51.01 Active 4460159 Problem Thyroiditis E06.9 Active 79967011 Problem History of thyroidectomy E89.0 Active 375320012 Problem 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 23858558 Problem Vitamin D deficiency E55.9 Active 63909766 Problem Dyspnea on exertion R06.09 Active 31389895 Problem Dyslipidemia E78.5 Active 245582647 Problem Hypertension I10 Active 25342610 Problem Insomnia, unspecified type G47.00 Active 130182796 Problem Other and unspecified hyperlipidemia E78.5 Active 99697818 Problem Facial rash R21 Active 393278555 ALLERGIES No Information ENCOUNTERS Encounter Location Date [facility] [place] [address] [facility] [address] [id number] [place] [id number] Sep, [facility] R04.2 [facility] [place] [address] [facility] [address] [id number] [place] [id number] Sep, Primary insomnia F51.01 [facility] [place] [address] [place] [address] [address] [id number] [place] [id number] Sep, Adverse effect of drug, initial encounter T88.7XXA [facility] [place] [address] [place] [address] [address] [id number] [place] [id number] Aug, Adverse effect of drug, initial encounter T88.7XXA [facility] [place] [address] [place] [address] [address] [id number] [place] [address] Aug, Primary insomnia F51.01 [facility] [place] [address] [place] [address] [address] [id number] [place] [id number] Jul, [facility] [place] [address] [place] [address] [address] [id number] [place] [address] Jul, Primary insomnia F51.01 [facility] [address] [facility] [id number] [place] [address] Jul, [facility] [place] [address] [place] [address] [address] [id number] [place] [id number] Jul, Atrial tachycardia I47.1 [facility] [place] [address] [place] [address] [address] [id number] [place] [address]23[address] Jul, [facility] [place] [address] [place] [address] [address] [id number] [place] [id number] Jun, Flu-like symptoms R68.89 and Chronic obstructive pulmonary disease, unspecified COPD type J44.9 [facility] [place] [address] [place] [address] [address] [id number] [place] [id number] Jun, [facility] [place] [address] [place] [address] [address] [id number] [place] [address]27[address] Jun, [facility] [place] [address] [place] [address] [address] [id number] [place] [address] Jun, [facility] [place] [address] [place] [address] [address] [id number] [place] [id number] Jun, Epigastric pain R10.13 ; Diarrhea, unspecified type R19.7 and Non-intractable vomiting without nausea, unspecified vomiting type R11.11 [facility] [place] [address] [facility] [id number] [place] [address] May, [facility] [place] [address] [place] [address] C [id number] [place] [id number] May, Chronic nonintractable headache, unspecified headache type R51 [facility] [place] [address] [facility] [address] [id number] [place] [id number] May, [facility] [place] [address] [place] [address] C [id number] [place] [address]90[address] May, Essential hypertension I10 ; Thyroiditis E06.9 and Nonintractable episodic headache, unspecified headache type R51 [facility] [place] [address] [place] [address] C [id number] [place] [id number] Feb, Dyslipidemia E78.5 ; Vitamin D deficiency E55.9 and Atherosclerosis of left carotid artery I65.22 [facility] [place] [address] [place] [address] C [id number] [place] [id number] Jan, [facility] [place] [address] [facility] [id number] [place] [address] Dec, [facility] [place] [address] [place] [address] C [id number] [place] [address] Dec, Atrial tachycardia I47.1 ; History of thyroidectomy E89.0 ; Primary insomnia F51.01 and Tobacco use Z72.0 [facility] [place] [address] [facility] [address] [id number] [place] [address] October, Galactorrhea O92.6 [facility] [place] [address] [place] [address] [address] [id number] [place] [address] October, [facility] [place] [address] [facility] [address] [id number] [place] [address] October, [facility] [place] [address] [place] [address] [address] [id number] [place] [id number] October, [facility] [place] [address] [place] [address] [address] [id number] [place] [address] October, Cough R05 and Other chest pain R07.89 [facility] [place] [address] [facility] [address] [id number] [place] [address] Sep, Dysuria R30.0 ; Acute cystitis without hematuria N30.00 and Chest tightness or pressure R07.89 [facility] [place] [address] [facility] [address] [id number] [place] [address] Sep, [facility] [place] [address] [place] [address] [address] [id number] [place] [address] Sep, Acute bilateral low back pain without sciatica M54.5 [facility] [place] [address] [place] [address] [address] [id number] [place] [address] Aug, Dermatitis L30.9 ; Other insomnia G47.09 and Anxiety F41.9 [facility] [place] [address] [place] [address] [address] [id number] [place] [address] Aug, [facility] [place] [address] [place] [address] [address] [id number] [place] 265[address] Aug, Hypertension I10 ; Dyslipidemia E78.5 and Vitamin D deficiency E55.9 [facility] [place] [address] [place] [address] [address] [id number] [place] [address] Jun, Anxiety F41.9 and Hypertension I10 [facility] [place] [address] [facility] [id number] [place] [address] Jun, [facility] [place] [address] [place] [address] [address] [id number] [place] [address] Jun, Anxiety F41.9 and Hypertension I10 [facility] [place] [address] [place] [address] [address] [id number] [place] [id number] Jun, [facility] [place] [address] [place] [address] [address] [id number] [place] [address] May, [facility] [place] [address] [facility] [address] [id number] [place] [address] May, Acute upper back pain M54.9 and Hypertension I10 [facility] [place] [address] [facility] [address] [id number] [place] [id number] Apr, [facility] [place] [address] [place] [address] [address] [id number] [place] [address] Apr, Mid-back pain, acute M54.9 ; Dyslipidemia E78.5 and Hypertension I10 [facility] [place] [address] [facility] [address] [id number] [place] [id number] Apr, [facility] [place] [address] [facility] [address] [id number] [place] [id number] Apr, [facility] [place] [address] [facility] [address] [id number] [place] [address] Feb, Familial hypercholesterolemia E78.0 ; Occlusion and stenosis of left carotid artery I65.22 and Vitamin D deficiency E55.9 [facility] [place] [address] [place] [address] [address] [id number] [place] [id number] Feb, [facility] [place] [address] [place] [address] [address] [id number] [place] [address] Feb, Fever, unspecified fever cause R50.9 and Acute non-recurrent maxillary sinusitis J01.00 [facility] [place] [address] [place] [address] [address] [id number] [place] [id number] Jan, [facility] [place] [address] [place] [address] [address] [id number] [place] [address] Jan, [facility] [place] [address] [place] [address] [address] [id number] [place] [id number] Jan, Nodule of neck R22.1 and Night sweats R61 [facility] [place] [address] [place] [address] [address] [id number] [place] [address] Dec, [facility] [place] [address] [facility] [address] [id number] [place] [address] Dec, [facility] [place] [address] [facility] [address] [id number] [place] [id number] Nov, [facility] [place] [address] [facility] [address] [id number] [place] [address] Nov, [facility] [place] [address] [facility] [address] [id number] [place] [id number] October, Acute upper respiratory infection, unspecified J06.9 ; Other viral agents as the cause of diseases classified elsewhere B97.89 and Calculus of gallbladder without cholecystitis without obstruction K80.20 [facility] [place] [address] [place] [address] C [id number] [place] [address]40 Sep, Insomnia, unspecified type G47.00 ; Hypertension I10 and Elevated LFTs R79.89 [facility] [place] [address] [place] [address] C [id number] [place] [id number] Sep, Bleeding after intercourse N93.0 and Dysuria R30.0 [facility] [place] [address] [place] [address] C [id number] [place] 3084744[address] Aug, Dysuria R30.0 and Pyuria N39.0 [facility] [place] [address] [place] [address] C [id number] [place] [id number] Aug, Hypertension I10 ; Insomnia, unspecified type G47.00 and 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 [facility] [address] [place] [address] C [id number] [place] [id number] 12 Jul, 2015 Pain of upper extremity M79.603 ; Hypertension I10 and Pure hypercholesterolemia E78.0 [facility] [place] [address] [place] [address] C [id number] [place] [id number] 09 Jul, 2015 Physical exam, pre-employment Z02.1 ; Visit for TB skin test Z11.1 ; Facial rash R21 and 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 [facility] [place] [address] [place] [address] C [id number] [place] 15079[address]69 04 Jul, 2015 Other and unspecified hyperlipidemia E78.5 ; Borderline abnormal thyroid function test R94.6 and Vitamin D deficiency E55.9 [facility] [place] [address] [place] [address] C [id number] [place] 035163807 Jun, 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 ; Dyslipidemia E78.5 ; Dyspnea on exertion R06.09 ; Family history of cardiovascular disease Z82.49 and Borderline abnormal thyroid function test R94.6 [facility] [place] [address] [place] [address] C [id number] [place] [id number] May, Other emphysema J43.8 ; Smoking F17.200 and Tobacco abuse counseling Z71.[address] [id number] [place] [address] May, Cough R05 and Other emphysema J43.[address] [id number] [place] [id number] Apr, [address] C [id number] [place] [address]10095[address] Apr, Skin lesion of back L98.9 and Skin lesion L98.[address] [id number] [place] [id number] 03 Apr, 2015 Skin lesion of back L98.9 and Hot flashes N95.[address] [id number] [place] 204583667 Mar, Bronchitis J40 [address] C [id number] [place] [address]50[address]607 Mar, Acute pharyngitis, unspecified J02.9 and Upper respiratory infection with cough and congestion J06.[address] C [id number] [place] 865[address]8042 Mar, Bronchitis J40 ; Shortness of breath R06.02 ; Encounter for screening mammogram for breast cancer Z12.31 and Yeast infection B37.[address] C [id number] [place] [id number] Jan, Other and unspecified hyperlipidemia 272.4 and Hypothyroidism 244.[address] [id number] [place] 5255818[address] Dec, [address] C [id number] [place] 7934[address]706 Nov, Diarrhea 787.91 and Nausea 787.[address] C [id number] [place] 397466926 October, Other and unspecified hyperlipidemia 272.[address] C [id number] [place] 659737357 October, Lumbago 724.2 [facility] [place] [address] [facility] [id number] [place] [address] 14 Sep, 2014 [facility] [address] [facility] [id number] [place] [address] Sep, [facility] [place] [facility] [address] [facility] [id number] [place] [address] Aug, [facility] [place] [address] [facility] [address] [id number] [place] [id number] Aug, [facility] [place] [address] [facility] [address] [id number] [place] [id number] Jun, [facility] [place] [facility] [address] [facility] [id number] [place] [address] Jun, [facility] [place] [facility] [address] [facility] [id number] [place] [address] May, [facility] [address] [facility] [id number] [place] [address] May, [facility] [place] [address] [facility] [address] [id number] [place] [id number] May, [facility] [place] [address] [facility] [address] [id number] [place] [id number] Apr, [facility] [place] [facility] [address] [facility] [id number] [place] [address] Apr, [facility] [place] [address] [facility] [address] [id number] [place] [id number] Mar, [facility] [place] [facility] [address] [facility] [id number] [place] [address] Mar, [facility] [place] [address] [facility] [address] [id number] [place] [id number] Mar, [facility] [place] [facility] [address] [facility] [id number] [place] [address] Mar, [facility] [place] [facility] [address] [facility] [id number] [place] [address] Mar, [facility] [place] [address] [facility] [address] [id number] [place] [id number] Mar, [facility] [place] [address] [id number] [place] [id number] Feb, [facility] [address] [id number] [place] [address] Feb, [facility] [place] [address] [facility] [address] [id number] [place] 117563780 Jan, [facility] [address] [id number] [place] [address] Jan, [facility] [address] [id number] [place] [address] Jan, [facility] [address] [id number] [facility] [place] [address] Jan, [facility] [place] [address] [facility] [address] [id number] [place] 267860340 Jan, [facility] [address] [id number] [place] [address] Jan, [facility] [place] [address] [facility] [address] [id number] [place] [id number] Dec, [facility] [address] [id number] [facility] [place] [address] Dec, [facility] [address] [facility] [id number] [place] [address] Dec, [facility] [address] [id number] [facility] [place] [address] Dec, [facility] [place] [address] [id number] [place] 501149978 Dec, [facility] [place] [address] [id number] [place] [id number] Dec, [facility] [place] [facility] [address] [id number] [facility] [place] [address] Dec, [facility] [place] [address] [id number] [place] [id number] October, [facility] [address] [id number] [facility] [place] [address] October, [facility] [place] [facility] [address] [id number] [facility] [place] [address] October, [facility] [place] [address] [id number] [place] [id number] Sep, [facility] [place] [facility] [address] [id number] [place] [address] Sep, [facility] [place] [address] [id number] [place] [id number] Sep, [facility] [place] [facility] [address] [id number] [place] [address] Sep, [facility] [place] [facility] [address] [facility] [id number] [facility] [place] [address] Aug, [facility] [place] [address] [id number] [place] [id number] Aug, [facility] [address] [id number] [facility] [place] [address] Jun, [facility] [place] [facility] [address] [facility] [id number] [facility] [place] [address] Jun, [facility] [place] [address] [id number] [place] [id number] Jun, [facility] [place] [address] [id number] [place] [id number] May, [facility] [place] [facility] [address] [id number] [place] [address] May, [facility] [place] [facility] [address] [id number] [place] [address] May, [facility] [place] [address] [id number] [place] [id number] May, [facility] [place] [address] [id number] [place] [id number] Apr, [facility] [place] [facility] [address] [facility] [id number] [place] [address] 18 Apr, 2013 [facility] [place] [address] [facility] [id number] [place] [address] 19 Feb, 2013 [facility] [address] [facility] [id number] [place] 309842476 17 Feb, 2013 IMMUNIZATIONS No Known Immunizations SOCIAL HISTORY Never Assessed REASON FOR VISIT 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
--- OUTSIDE RECORDS SUMMARY | 2019-04-01 10:54 | XMS REPORT ---
Author Author SARA MICHEL [facility] Address [address] [place] [address] Care Team Providers Care Telecom Network Manager Name Role Phone MICHELSARA Unavailable PROBLEMS Type Condition ICD9-CM Code QED44-KG Code Onset Dates Condition Status SNOMED Code Problem Insomnia, unspecified type G47.00 Active 074248742 Problem Familial hypercholesterolemia E78.0 Active 423924911 Problem Elevated LFTs R79.89 Active 188885537 Problem Primary insomnia F51.01 Active 1151901 Problem Smoking F17.200 Active 25018141 Problem History of thyroidectomy E89.0 Active 473361762 Problem Skin lesion of back L98.9 Active 65413271 Problem Hot flashes N95.1 Active 297613492 Problem Anxiety F41.9 Active 76699016 Problem Gastroparesis 536.3 Active 919799421 Problem Atrial tachycardia I47.1 Active 609441335 Problem Other insomnia G47.09 Active 896166022 Problem Family history of cardiovascular disease Z82.49 Active 836957209 Problem 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 31815289 Problem Other emphysema J43.8 Active 93405690 Problem Borderline abnormal thyroid function test R94.6 Active 463372599 Problem Vitamin D deficiency E55.9 Active 57007641 Problem Other and unspecified hyperlipidemia E78.5 Active 86299792 Problem Dyspnea on exertion R06.09 Active 73228367 Problem Facial rash R21 Active 637670985 Problem Dyslipidemia E78.5 Active 275080121 Problem Hypertension I10 Active 60656233 ALLERGIES Substance Reaction Event Type Date Status Promethazine VC/Codeine stomach upset Drug Allergy October, Active Fentanyl anaphylaxis Drug Allergy October, Active SOCIAL HISTORY Never Assessed PLAN OF CARE Activity Details Follow Up prn, 1 Week Reason: VITAL SIGNS Height 65 in 2016-11-06 Weight 144.1 lbs 2016-11-06 Temperature 98.1 degrees Fahrenheit 2016-11-06 Heart Rate 90 bpm 2016-11-06 Respiratory Rate 16 2016-11-06 Oximetry 97 % 2016-11-06 BMI 23.98 kg/m2 2016-11-06 Blood pressure systolic 128 mmHg 2016-11-06 Blood pressure diastolic 82 mmHg 2016-11-06 MEDICATIONS Medication Instructions Dosage Frequency Start Date End Date Duration Status D3-50 28216 UNIT Active Zoloft 50 mg Orally Once a day 1 tablet 24h Jun, Active Fish Oil 1000 MG Orally Once a day 1 capsule 24h Active Zetia 10 mg take 1 tablet (10 mg) by oral route once daily Jun, Active Lisinopril 10 MG 1 tablet 2 times a day Orally Active Triamcinolone & Emollient 0.1 % Externally Twice a day 1 null 12h Aug, Active PredniSONE 20 MG Orally Once a day 1 tablet 24h Active HydrOXYzine HCl 50 mg Orally at bedtime 1 tablet at bedtime Aug, Active Spiriva Respimat 2.5 MCG/ACT Inhalation Once a day 2 puffs 24h Active Sucralfate 1 GM Orally Twice a day 1 tablet on an empty stomach 12h Active Dicyclomine HCl 20 mg Orally 2 times a day 1 tablet 12h Active Tizanidine HCl 2 MG Orally Three times a day 1 tablet as needed 8h Sep, Active Crestor 10 MG Orally Once a day 1 tablet 24h Active Aspirin 81 mg take 1 tablet (81 mg) by oral route once daily Mar, Active Vascepa Orally Twice a day 2 capsules with meals 12h Active pantoprazole 40 mg take 1 tablet (40 mg) by oral route 2 times per day Mar, Active Hydrochlorothiazide 12.5 MG Orally Once a day 1 tablet 24h 30 Active RESULTS No Results PROCEDURES Procedure Date Ordered Result Body Site MEASURE BLOOD OXYGEN LEVEL November 06, 2016 IMMUNIZATIONS No Known Immunizations MEDICAL (GENERAL) [...]
--- OUTSIDE RECORDS SUMMARY | 2019-04-01 10:54 | XMS REPORT ---
Author Author SARA MICHEL [facility] Address [address] [place] [address] Care Team Providers Care Associate Pastor Name Role Phone MICHEL, SARA Unavailable PROBLEMS Type Condition ICD9-CM Code SUG25-XA Code Onset Dates Condition Status SNOMED Code Problem Nonspecific low blood pressure reading 796.3 Active 663320068 Problem Nonspecific abnormal results of liver function study 794.8 Active 780966474 Problem Essential hypertension, benign 401.1 Active 4035797 Problem Other and unspecified hyperlipidemia 272.4 Active 17468231 Problem Counseling on substance use and abuse V65.42 Active 423407970 Problem Insomnia, unspecified type G47.00 Active 471668372 Problem Hot flashes N95.1 Active 033660738 Problem Elevated LFTs R79.89 Active 486956057 Problem Skin lesion of back L98.9 Active 39529235 Problem Familial hypercholesterolemia E78.0 Active 353464905 Problem Lumbago 724.2 Active 963903871 Problem Other nonspecific abnormal finding 796.9 Active 633692979 Problem Primary insomnia F51.01 Active 2004384 Problem History of thyroidectomy E89.0 Active 982061083 Problem Borderline abnormal thyroid function test R94.6 Active 536511046 Problem Smoking F17.200 Active 18500581 Problem Other emphysema J43.8 Active 75664218 Problem Anxiety F41.9 Active 83798538 Problem Gastroparesis 536.3 Active 509594128 Problem Atrial tachycardia I47.1 Active 494919665 Problem Other insomnia G47.09 Active 660290205 Problem Dyspnea on exertion R06.09 Active 10146251 Problem Dyslipidemia E78.5 Active 685526955 Problem Family history of cardiovascular disease Z82.49 Active 770062193 Problem 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
--- OUTSIDE RECORDS SUMMARY | 2019-04-01 10:54 | XMS REPORT ---
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 Problem Nonspecific low blood pressure reading 796.3 Active Problem Vitamin D deficiency E55.9 Active Problem Facial rash R21 Active Problem Other and unspecified hyperlipidemia E78.5 Active Problem Lumbago 724.2 Active Problem Gastroparesis 536.3 Active Problem Other and unspecified hyperlipidemia 272.4 Active Problem Essential hypertension, benign 401.1 Active Problem Other nonspecific abnormal finding 796.9 Active Problem Counseling on substance use and abuse V65.42 Active Problem Insomnia, unspecified type G47.00 Active [...] Active Problem Other emphysema J43.8 Active Problem Borderline abnormal thyroid function test R94.6 Active Medications Medication Code System Code Instructions Start Date End Date Status Dosage Sucralfate [facility] [address]-46 1 GM Orally Twice a day 1 tablet on an empty stomach pantoprazole NDC 0 40 mg Apr 08, 2014 take 1 tablet (40 mg) by oral route 2 times per day Aspirin [facility] [address]-19 81 mg Apr 08, 2014 take 1 tablet (81 mg) by oral route once daily Lisinopril [facility] [address]-57 10 MG Orally 2 times a day 1 tablet Crestor [facility] [address]-66 10 MG Orally Once a day 1 tablet Dicyclomine HCl [facility] [address]-45 20 mg Orally 2 times a day 1 tablet Zetia [facility] [address]-14 10 mg Jul 11, 2014 take 1 tablet (10 mg) by oral route once daily D3-50 [facility] [address]-49 70053 UNIT Orally not defined Fish Oil [facility] [address]-99 1000 MG Orally Once a day 1 capsule Spiriva Respimat [facility] 02327042839 2.5 MCG/ACT Inhalation Once a day 2 puffs Procedures Procedure Coding System Code Date ELECTROCARDIOGRAM, TRACING CPT-4 41350 May 02, 2016 CHEST X-RAY CPT-4 47052 May 02, 2016 MEASURE BLOOD OXYGEN LEVEL CPT-4 03270 May 02, 2016 ASSAY OF TROPONIN, QUANT CPT-4 21351 May 02, 2016 Office Visit, Est Pt., Level 3 CPT-4 36997 May 02, 2016 Vital Signs Date/Time: May 02, 2016 Cardiac Monitoring Heart Rate 90 bpm Weight 140.6 lbs Height 65 in BMI 23.39 Index Oximetry 97 % Blood Pressure Diastolic 76 mmHg Blood Pressure Systolic 102 mmHg Results Name Result Date Reference Range Unit Abnormality Flag Xray : Chest (IN HOUSE) TROPONIN I EKG, TRACING (IN-HOUSE) Summary Purpose eClinicalWorks Submission
--- OUTSIDE RECORDS SUMMARY | 2019-04-01 10:54 | XMS REPORT ---
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 61888394 Problem Familial hypercholesterolemia E78.0 Active 614143295 Problem Counseling on substance use and abuse V65.42 Active 397099504 Problem Elevated LFTs R79.89 Active 270752233 Problem Nonspecific low blood pressure reading 796.3 Active 535041878 Assessment Familial hypercholesterolemia E78.0 Feb, Active 841071178 Problem Facial rash R21 Active 229086447 Problem Other and unspecified hyperlipidemia E78.5 Active 56989429 Problem Insomnia, unspecified type G47.00 Active 944361971 Problem Hypertension I10 Active 87521880 Problem Nonspecific abnormal results of liver function study 794.8 Active 936535202 Problem Hot flashes N95.1 Active 693321232 Problem Essential hypertension, benign 401.1 Active 8434132 Problem Other and unspecified hyperlipidemia 272.4 Active 11922129 Problem Other emphysema J43.8 Active 21286351 Problem Borderline abnormal thyroid function test R94.6 Active 724756824 Problem Skin lesion of back L98.9 Active 41477789 Problem Family history of cardiovascular disease Z82.49 Active 380782379 Assessment Occlusion and stenosis of left carotid artery I65.22 Feb, Active 91952552 Problem Smoking F17.200 Active 73043364 Problem Dyspnea on exertion R06.09 Active 18579708 ALLERGIES No Known Allergies SOCIAL HISTORY No smoking Hx information available PLAN OF CARE VITAL SIGNS MEDICATIONS No Known Medications RESULTS Name Result Date Reference Range CPK 2016-03-21 Creatine Kinase,Total,Serum 76 24-173 LIPID PANEL 2016-03-21 Cholesterol, Total 154 100-199 Triglycerides 159 0-149 HDL Cholesterol 33 >39 VLDL Cholesterol Ari 32 5-40 LDL Cholesterol Calc 89 0-99 Comment: CMP 2016-03-21 Glucose, Serum 89 65-99 BUN 6 6-24 Creatinine, Serum 0.73 0.57-1.00 eGFR If NonAfricn Am 95 >59 eGFR If Africn Am 110 >59 BUN/Creatinine Ratio 8 9-23 Sodium, Serum 144 134-144 Potassium, Serum 4.4 3.5-5.2 Chloride, Serum 105 97-108 Carbon Dioxide, Total 24 18-29 Calcium, Serum 9.8 8.7-10.2 Protein, Total, Serum 7.2 6.0-8.5 Albumin, Serum 4.6 3.5-5.5 Globulin, Total 2.6 1.5-4.5 A/G Ratio 1.8 1.1-2.5 Bilirubin, Total 0.3 0.0-1.2 Alkaline Phosphatase, S 91 39-117 AST (SGOT) 23 0-40 ALT (SGPT) 31 0-32 PROCEDURES Procedure Date Ordered Related Diagnosis Body Site LIPID PANEL Mar 21, 2016 COMPREHEN METABOLIC PANEL Mar 21, 2016 VENIPUNCT, ROUTINE* Mar 21, 2016 ASSAY OF CK (CPK) Mar 21, 2016 IMMUNIZATIONS No Known Immunizations
--- OUTSIDE RECORDS SUMMARY | 2019-04-01 10:55 | XMS REPORT ---
Author Author KEVIN BEJARANO [facility] Address [address] [place] [address] Care Team Providers Care Retail Pharmacist Name Role Phone KEVIN BEJARANO Unavailable PROBLEMS Type Condition ICD9-CM Code KWC90-SP Code Onset Dates Condition Status SNOMED Code Problem Hot flashes N95.1 Active 178277578 Problem Elevated LFTs R79.89 Active 718681877 Problem Skin lesion of back L98.9 Active 84025303 Problem Familial hypercholesterolemia E78.0 Active 294449711 Problem Smoking F17.200 Active 36466546 Problem Gastroparesis K31.84 Active 898306299 Problem Other insomnia G47.09 Active 687691685 Problem Anxiety F41.9 Active 59184956 Problem Chronic obstructive pulmonary disease, unspecified COPD type J44.9 Active 17707628 Problem Essential hypertension I10 Active 39431986 Problem Family history of cardiovascular disease Z82.49 Active 562468455 Problem Borderline abnormal thyroid function test R94.6 Active 325425078 Problem Other emphysema J43.8 Active 80961468 Problem Atrial tachycardia I47.1 Active 848131537 Problem Primary insomnia F51.01 Active 5258685 Problem Thyroiditis E06.9 Active 14188144 Problem History of thyroidectomy E89.0 Active 323578069 Problem 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 29954265 Problem Vitamin D deficiency E55.9 Active 20038259 Problem Dyspnea on exertion R06.09 Active 56612604 Problem Dyslipidemia E78.5 Active 431190383 Problem Hypertension I10 Active 23678135 Problem Insomnia, unspecified type G47.00 Active 016707141 Problem Other and unspecified hyperlipidemia E78.5 Active 70842638 Problem Facial rash R21 Active 471193509 ALLERGIES No Information ENCOUNTERS Encounter Location Date Diagnosis [facility] [place] [address] [facility] [address] [id number] [place] [id number] October, Dry mouth, unspecified R68.2 ; Pharyngitis, unspecified etiology J02.9 and Primary insomnia F51.01 [facility] [place] [address] [place] [address] [address] [id number] [place] [id number] October, [facility] [place] [address] [place] [address] [address] [id number] [place] [id number] Sep, [facility] [place] [address] [place] [address] [address] [id number] [place] [id number] Sep, Hemoptysis R04.2 [facility] [place] [address] [place] [address] [address] [id number] [place] [address] Sep, Primary insomnia F51.01 [facility] [place] [address] [place] [address] [address] [id number] [place] [id number] Sep, Adverse effect of drug, initial encounter T88.7XXA [facility] [place] [address] [place] [address] [address] [id number] [place] [id number] Aug, Adverse effect of drug, initial encounter T88.7XXA [facility] [place] [address] [place] [address] [address] [id number] [place] [id number] Aug, Primary insomnia F51.01 [facility] [place] [address] [place] [address] [address] [id number] [place] [id number] Jul, [facility] [place] [address] [place] [address] [address] [id number] [place] [id number] Jul, Primary insomnia F51.01 [facility] [address] [facility] [id number] [place] [address] Jul, [facility] [place] [address] [place] [address] [address] [id number] [place] [id number] Jul, Atrial tachycardia I47.1 [facility] [place] [address] [place] [address] [address] [id number] [place] [id number] Jul, [facility] [place] [address] [place] [address] [address] [id number] [place] [id number] Jun, Flu-like symptoms R68.89 and Chronic obstructive pulmonary disease, unspecified COPD type J44.9 [facility] [place] [address] [place] [address] [address] [id number] [place] [id number] Jun, [facility] [place] [address] [facility] [address] [id number] [place] [id number] Jun, [facility] [place] [address] [facility] [address] [id number] [place] [id number] Jun, [facility] [place] [address] [place] [address] [address] [id number] [place] [id number] Jun, Epigastric pain R10.13 ; Diarrhea, unspecified type R19.7 and Non-intractable vomiting without nausea, unspecified vomiting type R11.11 [facility] [address] [facility] [id number] [place] [address] May, [facility] [place] [address] [place] [address] C [id number] [place] [id number] May, Chronic nonintractable headache, unspecified headache type R51 [facility] [place] [address] [place] [address] [address] [id number] [place] [id number] May, [facility] [place] [address] [place] [address] C [id number] [place] [id number] May, Essential hypertension I10 ; Thyroiditis E06.9 and Nonintractable episodic headache, unspecified headache type R51 [facility] [place] [address] [place] [address] C [id number] [place] [id number] Feb, Dyslipidemia E78.5 ; Vitamin D deficiency E55.9 and Atherosclerosis of left carotid artery I65.22 [facility] [place] [address] [place] [address] C [id number] [place] [id number] Jan, [facility] [address] [facility] [id number] [place] [address] Dec, [facility] [place] [address] [place] [address] [address] [id number] [place] [id number] Dec, Atrial tachycardia I47.1 ; History of thyroidectomy E89.0 ; Primary insomnia F51.01 and Tobacco use Z72.0 [facility] [place] [address] [place] [address] [address] [id number] [place] [id number] October, Galactorrhea O92.6 [facility] [address] [place] [address] C [id number] [place] [id number] October, [facility] [place] [address] [facility] [address] [id number] [place] [id number] October, [facility] [place] [address] [facility] [address] [id number] [place] [id number] October, [facility] [place] [address] [place] [address] [address] [id number] [place] [id number] October, Cough R05 and Other chest pain R07.89 [facility] [place] [address] [place] [address] [address] [id number] [place] [id number] Sep, Dysuria R30.0 ; Acute cystitis without hematuria N30.00 and Chest tightness or pressure R07.89 [facility] [place] [address] [place] [address] [address] [id number] [place] [id number] Sep, [facility] [place] [address] [place] [address] [address] [id number] [place] [id number] Sep, Acute bilateral low back pain without sciatica M54.5 [facility] [place] [address] [place] [address] [address] [id number] [place] [id number] Aug, Dermatitis L30.9 ; Other insomnia G47.09 and Anxiety F41.9 [facility] [place] [address] [place] [address] [address] [id number] [place] [id number] Aug, [facility] [place] [address] [place] [address] [address] [id number] [place] [id number] Aug, Hypertension I10 ; Dyslipidemia E78.5 and Vitamin D deficiency E55.9 [facility] [place] [address] [place] [address] [address] [id number] [place] [id number] Jun, Anxiety F41.9 and Hypertension I10 [facility] [address] [facility] [id number] [place] [address] Jun, [facility] [place] [address] [place] [address] [address] [id number] [place] [id number] Jun, Anxiety F41.9 and Hypertension I10 [facility] [place] [address] [place] [address] [address] [id number] [place] [id number] Jun, [facility] [place] [address] [facility] [address] [id number] [place] [id number] May, [facility] [place] [address] [facility] [address] [id number] [place] [id number] May, Acute upper back pain M54.9 and Hypertension I10 [facility] [place] [address] [facility] [address] [id number] [place] [id number] Apr, [facility] [place] [address] [facility] [address] [id number] [place] [id number] Apr, Mid-back pain, acute M54.9 ; Dyslipidemia E78.5 and Hypertension I10 [facility] [place] [address] [place] [address] [address] [id number] [place] [id number] Apr, [facility] [place] [address] [facility] [address] [id number] [place] [id number] Apr, [facility] [place] [address] [facility] [address] [id number] [place] [id number] Feb, Familial hypercholesterolemia E78.0 ; Occlusion and stenosis of left carotid artery I65.22 and Vitamin D deficiency E55.9 [facility] [place] [address] [place] [address] [address] [id number] [place] [id number] Feb, [facility] [place] [address] [place] [address] [address] [id number] [place] [id number] Feb, Fever, unspecified fever cause R50.9 and Acute non-recurrent maxillary sinusitis J01.00 [facility] [place] [address] [facility] [address] [id number] [place] [id number] Jan, [facility] [place] [address] [facility] [address] [id number] [place] [id number] Jan, [facility] [place] [address] [facility] [address] [id number] [place] [id number] Jan, Nodule of neck R22.1 and Night sweats R61 [facility] [place] [address] [facility] [address] [id number] [place] [id number] Dec, [facility] [place] [address] [facility] [address] [id number] [place] [id number] Dec, [facility] [place] [address] [place] [address] C [id number] [place] [id number] Nov, [facility] [place] [address] [place] [address] C [id number] [place] [id number] Nov, [facility] [place] [address] [place] [address] C [id number] [place] [id number] October, Acute upper respiratory infection, unspecified J06.9 ; Other viral agents as the cause of diseases classified elsewhere B97.89 and Calculus of gallbladder without cholecystitis without obstruction K80.20 [facility] [place] [address] [place] [address] C [id number] [place] [id number] Sep, Insomnia, unspecified type G47.00 ; Hypertension I10 and Elevated LFTs R79.89 [facility] [address] [place] [address] C [id number] [place] [id number] Sep, Bleeding after intercourse N93.0 and Dysuria R30.0 [facility] [place] [address] [place] [address] C [id number] [place] 11477[address] Aug, Dysuria R30.0 and Pyuria N39.0 [facility] [place] [address] [place] [address] C [id number] [place] [id number] Aug, Hypertension I10 ; Insomnia, unspecified type G47.00 and 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 [facility] [place] [address] [place] [address] C [id number] [place] [id number] 12 Jul, 2015 Pain of upper extremity M79.603 ; Hypertension I10 and Pure hypercholesterolemia E78.0 [facility] [place] [address] [place] [address] C [id number] [place] [id number] 09 Jul, 2015 Physical exam, pre-employment Z02.1 ; Visit for TB skin test Z11.1 ; Facial rash R21 and 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 [facility] [place] [address] [place] [address] C [id number] [place] [id number] 04 Jul, 2015 Other and unspecified hyperlipidemia E78.5 ; Borderline abnormal thyroid function test R94.6 and Vitamin D deficiency E55.9 [facility] [address] C [id number] [place] [id number] Jun, 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 ; Dyslipidemia E78.5 ; Dyspnea on exertion R06.09 ; Family history of cardiovascular disease Z82.49 and Borderline abnormal thyroid function test R94.[address] C [id number] [place] [id number] May, Other emphysema J43.8 ; Smoking F17.200 and Tobacco abuse counseling Z71.[address] C [id number] [place] 6[address]13[address] May, Cough R05 and Other emphysema J43.[address] [id number] [place] [id number] Apr, [address] [id number] [place] [id number] Apr, Skin lesion of back L98.9 and Skin lesion L98.[address] [id number] [place] [id number] Apr, Skin lesion of back L98.9 and Hot flashes N95.[address] C [id number] [place] 899[address] Mar, Bronchitis J40 [address] [id number] [place] [address] Mar, Acute pharyngitis, unspecified J02.9 and Upper respiratory infection with cough and congestion J06.[address] C [id number] [place] [id number] Mar, Bronchitis J40 ; Shortness of breath R06.02 ; Encounter for screening mammogram for breast cancer Z12.31 and Yeast infection B37.[address] C [id number] [place] [id number] Jan, Other and unspecified hyperlipidemia 272.4 and Hypothyroidism 244.[address] [id number] [place] [id number] Dec, [address] [id number] [place] 733[address] Nov, Diarrhea 787.91 and Nausea 787.02 [facility] [place] [address] [facility] [address] [id number] [place] [id number] October, Other and unspecified hyperlipidemia 272.4 [facility] [place] [address] [facility] [address] [id number] [place] [id number] October, Lumbago 724.2 [facility] [place] [facility] [address] [facility] [id number] [place] [address] Sep, [facility] [address] [facility] [id number] [place] [address] Sep, [facility] [address] [facility] [id number] [place] [address] Aug, [facility] [place] [address] [facility] [address] [id number] [place] [id number] Aug, [facility] [place] [address] [facility] [address] [id number] [place] [id number] Jun, [facility] [address] [facility] [id number] [place] [address] Jun, [facility] [address] [facility] [id number] [place] [address] May, [facility] [address] [facility] [id number] [place] [address] May, [facility] [place] [address] [facility] [address] [id number] [place] [id number] May, [facility] [place] [address] [facility] [address] [id number] [place] [id number] Apr, [facility] [address] [facility] [id number] [place] [address] Apr, [facility] [place] [address] [facility] [address] [id number] [place] [id number] Mar, [facility] [address] [facility] [id number] [place] [address] Mar, [facility] [place] [address] [id number] [place] [id number] Mar, [facility] [place] [facility] [address] [id number] [place] [address] Mar, [facility] [place] [facility] [address] [id number] [place] [address] Mar, [facility] [place] [address] [id number] [place] [id number] Mar, [facility] [place] [address] [id number] [place] [id number] Feb, [facility] [place] [facility] [address] [id number] [place] [address] Feb, [facility] [place] [address] [id number] [place] [id number] Jan, [facility] [place] [facility] [address] [id number] [place] [address] Jan, [facility] [place] [facility] [address] [id number] [facility] [place] [address] Jan, [facility] [place] [facility] [address] [facility] [id number] [facility] [place] [address] Jan, [facility] [place] [address] [id number] [place] [id number] Jan, [facility] [place] [facility] [address] [id number] [facility] [place] [address] Jan, [facility] [place] [address] [id number] [place] [id number] Dec, [facility] [place] [facility] [address] [id number] [facility] [place] [address] Dec, [facility] [place] [facility] [address] [facility] [id number] [facility] [place] [address] Dec, [facility] [place] [facility] [address] [facility] [id number] [place] [address] Dec, [facility] [place] [address] [id number] [place] [id number] Dec, [facility] [place] [address] [id number] [place] [id number] Dec, [facility] [address] [id number] [place] [address] Dec, [facility] [place] [address] [id number] [place] [id number] October, [facility] [address] [id number] [place] [address] October, [facility] [address] [id number] [place] [address] October, [facility] [place] [address] [facility] [address] [id number] [place] [id number] Sep, [facility] [place] [facility] [address] [facility] [id number] [facility] [place] [address] Sep, [facility] [place] [address] [facility] [address] [id number] [place] [id number] Sep, [facility] [address] [facility] [id number] [facility] [place] [address] Sep, [facility] [address] [facility] [id number] [facility] [place] [address] Aug, [facility] [place] [address] [facility] [address] [id number] [place] [id number] Aug, [facility] [address] [facility] [id number] [facility] [place] [address] Jun, [facility] [address] [id number] [place] [address] Jun, [facility] [place] [address] [id number] [place] [id number] Jun, [facility] [place] [address] [id number] [place] [id number] May, [facility] [address] [facility] [id number] [place] [address] May, [facility] [address] [facility] [id number] [place] [address] May, [facility] [address] [facility] [address] [id number] [place] [id number] May, [facility] [place] [address] [facility] [id number] [place] [id number] Apr, [facility] [address] [facility] [id number] [place] [address] Apr, [facility] [address] [facility] [id number] [place] [address] Feb, [facility] [address] [facility] [id number] [place] [id number] Feb, IMMUNIZATIONS No Known Immunizations SOCIAL HISTORY Never Assessed REASON FOR VISIT lab results PLAN OF CARE VITAL SIGNS MEDICATIONS No [...]
--- OUTSIDE RECORDS SUMMARY | 2019-04-01 10:55 | XMS REPORT ---
Author Author KEVIN BEJARANO [facility] Address [address] [place] [address] Care Team Providers Care Tapper Balance Wheel Screw Hole Name Role Phone KEVIN BEJARANO Unavailable PROBLEMS Type Condition ICD9-CM Code AMU76-NM Code Onset Dates Condition Status SNOMED Code Problem Hot flashes N95.1 Active 062602064 Problem Elevated LFTs R79.89 Active 344957956 Problem Skin lesion of back L98.9 Active 96108287 Problem Familial hypercholesterolemia E78.0 Active 689616910 Problem Smoking F17.200 Active 28278233 Problem Gastroparesis K31.84 Active 408445334 Problem Other insomnia G47.09 Active 460931188 Problem Anxiety F41.9 Active 42047797 Problem Chronic obstructive pulmonary disease, unspecified COPD type J44.9 Active 28778115 Problem Essential hypertension I10 Active 71310397 Problem Family history of cardiovascular disease Z82.49 Active 515927422 Problem Borderline abnormal thyroid function test R94.6 Active 655091523 Problem Other emphysema J43.8 Active 72347843 Problem Atrial tachycardia I47.1 Active 307512627 Problem Primary insomnia F51.01 Active 0936335 Problem Thyroiditis E06.9 Active 11941365 Problem History of thyroidectomy E89.0 Active 923112762 Problem 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 59058218 Problem Vitamin D deficiency E55.9 Active 10523297 Problem Dyspnea on exertion R06.09 Active 07409340 Problem Dyslipidemia E78.5 Active 553675152 Problem Hypertension I10 Active 33788416 Problem Insomnia, unspecified type G47.00 Active 373542349 Problem Other and unspecified hyperlipidemia E78.5 Active 18014349 Problem Facial rash R21 Active 361669132 ALLERGIES No Information ENCOUNTERS Encounter Location Date Diagnosis [facility] [place] [address] [facility] C [id number] [place] [id number] October, Dry mouth, unspecified R68.2 ; Pharyngitis, unspecified etiology J02.9 and Primary insomnia F51.01 [facility] [place] [address] [place] [address] [address] [id number] [place] [id number] October, [facility] [place] [address] [place] [address] [address] [id number] [place] 345326[address] Sep, [facility] [place] [address] [place] [address] [address] [id number] [place] 9747575[address] Sep, Hemoptysis R04.2 [facility] [place] [address] [place] [address] [address] [id number] [place] [id number] Sep, Primary insomnia F51.01 [facility] [place] [address] [place] [address] [address] [id number] [place] 350376675 Sep, Adverse effect of drug, initial encounter T88.7XXA [facility] [place] [address] [place] [address] [address] [id number] [place] 432965043 Aug, Adverse effect of drug, initial encounter T88.7XXA [facility] [place] [address] [place] [address] [address] [id number] [place] [id number] Aug, Primary insomnia F51.01 [facility] [place] [address] [place] [address] [address] [id number] [place] [id number] Jul, [facility] [place] [address] [place] [address] [address] [id number] [place] [id number] Jul, Primary insomnia F51.01 [facility] [address] [facility] [id number] [place] [address] Jul, [facility] [place] [address] [place] [address] [address] [id number] [place] 14[address]17 Jul, Atrial tachycardia I47.1 [facility] [place] [address] [place] [address] [address] [id number] [place] [id number] Jul, [facility] [place] [address] [place] [address] [address] [id number] [place] 317181336 Jun, Flu-like symptoms R68.89 and Chronic obstructive pulmonary disease, unspecified COPD type J44.9 [facility] [place] [address] [place] [address] [address] [id number] [place] 657328505 Jun, [facility] [place] [address] [facility] [address] [id number] [place] [id number] Jun, [facility] [place] [address] [facility] [address] [id number] [place] [id number] Jun, [facility] [place] [address] [place] [address] [address] [id number] [place] 674208162 Jun, Epigastric pain R10.13 ; Diarrhea, unspecified type R19.7 and Non-intractable vomiting without nausea, unspecified vomiting type R11.11 [facility] [address] [facility] [id number] [place] [address] May, [facility] [place] [address] [place] [address] C [id number] [place] [id number] May, Chronic nonintractable headache, unspecified headache type R51 [facility] [place] [address] [place] [address] C [id number] [place] [id number] May, [facility] [place] [address] [place] [address] C [id number] [place], [place] [id number] May, Essential hypertension I10 ; Thyroiditis E06.9 and Nonintractable episodic headache, unspecified headache type R51 [facility] [place] [address] [place] [address] C [id number] [place] 29230[address]32 Feb, Dyslipidemia E78.5 ; Vitamin D deficiency E55.9 and Atherosclerosis of left carotid artery I65.22 [facility] [place] [address] [place] [address] C [id number] [place] 579364754 Jan, [facility] [address] [facility] [id number] [place] [address] Dec, [facility] [place] [address] [place] [address] C [id number] [place] 740402143 Dec, Atrial tachycardia I47.1 ; History of thyroidectomy E89.0 ; Primary insomnia F51.01 and Tobacco use Z72.0 [facility] [place] [address] [place] [address] [address] [id number] [place] 6040[address]409 October, Galactorrhea O92.6 [facility] [address] [place] [address] C [id number] [place] [id number] October, [facility] [place] [address] [facility] [address] [id number] [place] 9206[address]347 October, [facility] [place] [address] [facility] [address] [id number] [place] 608445978 October, [facility] [place] [address] [place] [address] [address] [id number] [place] 131160459 October, Cough R05 and Other chest pain R07.89 [facility] [place] [address] [place] [address] [address] [id number] [place] 434487223 Sep, Dysuria R30.0 ; Acute cystitis without hematuria N30.00 and Chest tightness or pressure R07.89 [facility] [place] [address] [place] [address] [address] [id number] [place] 235188151 Sep, [facility] [place] [address] [place] [address] [address] [id number] [place] 513507176 Sep, Acute bilateral low back pain without sciatica M54.5 [facility] [place] [address] [place] [address] [address] [id number] [place] 077294763 Aug, Dermatitis L30.9 ; Other insomnia G47.09 and Anxiety F41.9 [facility] [place] [address] [place] [address] [address] [id number] [place] [id number] Aug, [facility] [place] [address] [place] [address] [address] [id number] [place] 660671933 Aug, Hypertension I10 ; Dyslipidemia E78.5 and Vitamin D deficiency E55.9 [facility] [place] [address] [place] [address] [address] [id number] [place] 847949252 Jun, Anxiety F41.9 and Hypertension I10 [facility] [address] [facility] [id number] [place] [address] Jun, [facility] [place] [address] [place] [address] [address] [id number] [place] 728472258 Jun, Anxiety F41.9 and Hypertension I10 [facility] [place] [address] [place] [address] [address] [id number] [place] 058116912 Jun, [facility] [place] [address] [facility] [address] [id number] [place] 838516349 May, [facility] [place] [address] [facility] [address] [id number] [place] 353274741 May, Acute upper back pain M54.9 and Hypertension I10 [facility] [place] [address] [facility] [address] [id number] [place] 9186[address]38 Apr, [facility] [place] [address] [facility] [address] [id number] [place] 517573056 Apr, Mid-back pain, acute M54.9 ; Dyslipidemia E78.5 and Hypertension I10 [facility] [place] [address] [place] [address] [address] [id number] [place] 740362397 Apr, [facility] [place] [address] [facility] [address] [id number] [place] 719914986 Apr, [facility] [place] [address] [facility] [address] [id number] [place] 434007756 Feb, Familial hypercholesterolemia E78.0 ; Occlusion and stenosis of left carotid artery I65.22 and Vitamin D deficiency E55.9 [facility] [place] [address] [place] [address] [address] [id number] [place] [id number] Feb, [facility] [place] [address] [place] [address] [address] [id number] [place] 986243595 Feb, Fever, unspecified fever cause R50.9 and Acute non-recurrent maxillary sinusitis J01.[address] [facility] [place] [address] [facility] [address] [id number] [place] 638949069 Jan, [facility] [place] [address] [facility] [address] [id number] [place] 306751506 Jan, [facility] [place] [address] [facility] [address] [id number] [place] 809201702 Jan, Nodule of neck R22.1 and Night sweats R61 [facility] [place] [address] [facility] [address] [id number] [place] [id number] Dec, [facility] [place] [address] [facility] [address] [id number] [place] 192073461 Dec, [facility] [place] [address] [place] [address] C [id number] [place] 234372562 Nov, [facility] [place] [address] [place] [address] C [id number] [place] [id number] Nov, [facility] [place] [address] [place] [address] C [id number] [place] [id number] October, Acute upper respiratory infection, unspecified J06.9 ; Other viral agents as the cause of diseases classified elsewhere B97.89 and Calculus of gallbladder without cholecystitis without obstruction K80.20 [facility] [place] [address] [place] [address] C [id number] [place] 891658082 Sep, Insomnia, unspecified type G47.00 ; Hypertension I10 and Elevated LFTs R79.[address] C [id number] [place] 785838637 Sep, Bleeding after intercourse N93.0 and Dysuria R30.0 [facility] [address] [place] [address] [id number] [place] 130033935 Aug, Dysuria R30.0 and Pyuria N39.0 [facility] [address] [place] [address] C [id number] [place] 853145264 Aug, Hypertension I10 ; Insomnia, unspecified type G47.00 and 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 [facility] [place] [address] [place] [address] C [id number] [place] [id number] 12 Jul, 2015 Pain of upper extremity M79.603 ; Hypertension I10 and Pure hypercholesterolemia E78.0 [facility] [place] [address] [place] [address] C [id number] [place] [id number] 09 Jul, 2015 Physical exam, pre-employment Z02.1 ; Visit for TB skin test Z11.1 ; Facial rash R21 and 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 [facility] [place] [address] [place] [address] C [id number] [place] [id number] 04 Jul, 2015 Other and unspecified hyperlipidemia E78.5 ; Vitamin D deficiency E55.9 and Borderline abnormal thyroid function test R94.6 [facility] [id number] [place] 695[address]3099 Jun, 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 ; Dyslipidemia E78.5 ; Dyspnea on exertion R06.09 ; Family history of cardiovascular disease Z82.49 and Borderline abnormal thyroid function test R94.[address] C [id number] [place] 247610677 May, Other emphysema J43.8 ; Smoking F17.200 and Tobacco abuse counseling Z71.[address] C [id number] [place] 667787894 May, Cough R05 and Other emphysema J43.[address] [id number] [place] 561389[address] Apr, [address] C [id number] [place] 930892346 Apr, Skin lesion of back L98.9 and Skin lesion L98.[address] [id number] [place] 998429692 Apr, Skin lesion of back L98.9 and Hot flashes N95.[address] C [id number] [place] 582482604 Mar, Bronchitis J40 [address] [id number] [place] 642[address]97[address] Mar, Acute pharyngitis, unspecified J02.9 and Upper respiratory infection with cough and congestion J06.[address] C [id number] [place] 7786[address] Mar, Bronchitis J40 ; Shortness of breath R06.02 ; Encounter for screening mammogram for breast cancer Z12.31 and Yeast infection B37.[address] C [id number] [place] 813861481 Jan, Other and unspecified hyperlipidemia 272.4 and Hypothyroidism 244.[address] [id number] [place] 127007757 Dec, [address] [id number] [place] 602451494 Nov, Diarrhea 787.91 and Nausea 787.[address] [facility] [place] [address] [facility] [address] [id number] [place] 753168482 October, Other and unspecified hyperlipidemia 272.[address] [facility] [place] [address] [facility] [address] [id number] [place] 199875843 October, Lumbago 724.2 [facility] [place] [facility] [address] [facility] [id number] [place] [address] Sep, [facility] [address] [facility] [id number] [place] [address] Sep, [facility] [address] [facility] [id number] [place] [address] Aug, [facility] [place] [address] [facility] [address] [id number] [place] 857113507 Aug, [facility] [place] [address] [facility] [address] [id number] [place] 512469301 Jun, [facility] [address] [facility] [id number] [place] [address] Jun, [facility] [address] [facility] [id number] [place] [address] May, [facility] [address] [facility] [id number] [place] [address] May, [facility] [place] [address] [facility] [address] [id number] [place] 890961956 May, [facility] [place] [address] [facility] [address] [id number] [place] [id number] Apr, [facility] [address] [facility] [id number] [place] [address] Apr, [facility] [place] [address] [facility] [address] [id number] [place] 829327708 Mar, [facility] [address] [facility] [id number] [place] [address] Mar, [facility] [place] [address] [id number] [place] 855722834 Mar, [facility] [place] [facility] [address] [id number] [place] [address] Mar, [facility] [place] [facility] [address] [id number] [place] [address] Mar, [facility] [place] [address] [id number] [place] [id number] Mar, [facility] [place] [address] [id number] [place] 759603298 Feb, [facility] [place] [facility] [address] [id number] [place] [address] Feb, [facility] [place] [address] [id number] [place] [id number] Jan, [facility] [place] [facility] [address] [id number] [place] [address] Jan, [facility] [place] [facility] [address] [id number] [facility] [place] [address] Jan, [facility] [place] [facility] [address] [facility] [id number] [facility] [place] [address] Jan, [facility] [place] [address] [id number] [place] [id number] Jan, [facility] [place] [facility] [address] [id number] [facility] [place] [address] Jan, [facility] [place] [address] [id number] [place] 549825311 Dec, [facility] [place] [facility] [address] [id number] [facility] [place] [address] Dec, [facility] [place] [facility] [address] [facility] [id number] [facility] [place] [address] Dec, [facility] [place] [facility] [address] [facility] [id number] [place] [address] Dec, [facility] [place] [address] [id number] [place] 315891893 Dec, [facility] [place] [address] [id number] [place] 409777638 Dec, [facility] [address] [id number] [place] [address] Dec, [facility] [place] [address] [id number] [place] [id number] October, [facility] [address] [id number] [place] [address] October, [facility] [address] [id number] [place] [address] October, [facility] [place] [address] [facility] [address] [id number] [place] 898211908 Sep, [facility] [place] [facility] [address] [facility] [id number] [facility] [place] [address] Sep, [facility] [place] [address] [facility] [address] [id number] [place] 481107596 Sep, [facility] [address] [facility] [id number] [facility] [place] [address] Sep, [facility] [address] [facility] [id number] [facility] [place] [address] Aug, [facility] [place] [address] [facility] [address] [id number] [place] [id number] Aug, [facility] [address] [facility] [id number] [facility] [place] [address] Jun, [facility] [address] [id number] [place] [address] Jun, [facility] [place] [address] [id number] [place] 093486133 Jun, [facility] [place] [address] [id number] [place] [id number] May, [facility] [address] [facility] [id number] [place] [address] May, [facility] [address] [facility] [id number] [place] [address] May, [facility] [address] [facility] [address] [id number] [place] [address] May, [facility] [place] [address] [facility] [id number] [place] [id number] Apr, [facility] [address] [facility] [id number] [place] [address] Apr, [facility] [address] [facility] [id number] [place] [address] Feb, [facility] [address] [facility] [id number] [place] [id number] Feb, IMMUNIZATIONS No Known Immunizations SOCIAL HISTORY [...]
--- OUTSIDE RECORDS SUMMARY | 2019-04-01 10:56 | XMS REPORT ---
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 Name Role Phone MICHEL, SARA Unavailable PROBLEMS Type Condition ICD9-CM Code YKS48-LS Code Onset Dates Condition Status SNOMED Code Problem Hot flashes N95.1 Active 831290882 Problem Elevated LFTs R79.89 Active 978240537 Problem Skin lesion of back L98.9 Active 24716136 Problem Familial hypercholesterolemia E78.0 Active 378060685 Problem Smoking F17.200 Active 27013907 Problem Gastroparesis K31.84 Active 871270970 Problem Other insomnia G47.09 Active 976481238 Problem Anxiety F41.9 Active 53635525 Problem Chronic obstructive pulmonary disease, unspecified COPD type J44.9 Active 96409544 Problem Essential hypertension I10 Active 17929784 Problem Family history of cardiovascular disease Z82.49 Active 611293084 Problem Borderline abnormal thyroid function test R94.6 Active 665284728 Problem Other emphysema J43.8 Active 90795835 Problem Atrial tachycardia I47.1 Active 006708989 Problem Primary insomnia F51.01 Active 7420299 Problem Thyroiditis E06.9 Active 56561299 Problem History of thyroidectomy E89.0 Active 993725115 Problem 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 50840538 Problem Vitamin D deficiency E55.9 Active 83638079 Problem Dyspnea on exertion R06.09 Active 18902775 Problem Dyslipidemia E78.5 Active 185183241 Problem Hypertension I10 Active 27830716 Problem Insomnia, unspecified type G47.00 Active 228835852 Problem Other and unspecified hyperlipidemia E78.5 Active 20275962 Problem Facial rash R21 Active 197832636 ALLERGIES No Information ENCOUNTERS Encounter Location Date Diagnosis [facility] [place] [address] [facility] [facility] [address] [id number] [place] [id number] October, Dry mouth, unspecified R68.2 ; Pharyngitis, unspecified etiology J02.9 and Primary insomnia F51.01 [facility] [place] [address] [place] [address] [address] [id number] [place] [id number] October, [facility] [place] [address] [place] [address] [address] [id number] [place] [id number] Sep, [facility] [place] [address] [place] [address] [address] [id number] [place] [id number] Sep, Hemoptysis R04.2 [facility] [place] [address] [place] [address] [address] [id number] [place] [id number] Sep, Primary insomnia F51.01 [facility] [place] [address] [place] [address] [address] [id number] [place] [address]27951415 Sep, Adverse effect of drug, initial encounter T88.7XXA [facility] [place] [address] [place] [address] [address] [id number] [place] [id number] Aug, Adverse effect of drug, initial encounter T88.7XXA [facility] [place] [address] [place] [address] [address] [id number] [place] [address]1301[address] Aug, Primary insomnia F51.01 [facility] [place] [address] [place] [address] [address] [id number] [place] [id number] Jul, [facility] [place] [address] [place] [address] [address] [id number] [place] [id number] Jul, Primary insomnia F51.01 [facility] [address] [facility] [id number] [place] [address] Jul, [facility] [place] [address] [place] [address] [address] [id number] [place] [id number] Jul, Atrial tachycardia I47.1 [facility] [place] [address] [place] [address] [address] [id number] [place] [id number] Jul, [facility] [place] [address] [place] [address] [address] [id number] [place] [id number] Jun, Flu-like symptoms R68.89 and Chronic obstructive pulmonary disease, unspecified COPD type J44.9 [facility] [place] [address] [place] [address] [address] [id number] [place] [id number] Jun, [facility] [place] [address] [facility] [address] [id number] [place] [id number] Jun, [facility] [place] [address] [facility] [address] [id number] [place] [id number] Jun, [facility] [place] [address] [place] [address] C [id number] [place] [id number] Jun, Epigastric pain R10.13 ; Diarrhea, unspecified type R19.7 and Non-intractable vomiting without nausea, unspecified vomiting type R11.11 [facility] [place] [address] [facility] [id number] [place] [address] May, [facility] [place] [address] [place] [address] C [id number] [place] [id number] May, Chronic nonintractable headache, unspecified headache type R51 [facility] [place] [address] [place] [address] C [id number] [place] [id number] May, [facility] [place] [address] [place] [address] C [id number] [place] [id number] May, Essential hypertension I10 ; Thyroiditis E06.9 and Nonintractable episodic headache, unspecified headache type R51 [facility] [place] [address] [place] [address] C [id number] [place] 674264087 Feb, Dyslipidemia E78.5 ; Vitamin D deficiency E55.9 and Atherosclerosis of left carotid artery I65.22 [facility] [place] [address] [place] [address] C [id number] [place] [id number] Jan, [facility] [place] [address] [facility] [id number] [place] [address] Dec, [facility] [place] [address] [place] [address] C [id number] [place] [id number] Dec, Atrial tachycardia I47.1 ; History of thyroidectomy E89.0 ; Primary insomnia F51.01 and Tobacco use Z72.0 [facility] [place] [address] [place] [address] C [id number] [place] [id number] October, Galactorrhea O92.6 [facility] [address] [place] [address] C [id number] [place] [id number] October, [facility] [place] [address] [facility] [address] [id number] [place] 120[address]354 October, [facility] [place] [address] [place] [address] [address] [id number] [place] 284753880 October, [facility] [place] [address] [place] [address] [address] [id number] [place] 797011405 October, Cough R05 and Other chest pain R07.89 [facility] [place] [address] [place] [address] [address] [id number] [place] 350836218 Sep, Dysuria R30.0 ; Acute cystitis without hematuria N30.00 and Chest tightness or pressure R07.89 [facility] [place] [address] [place] [address] [address] [id number] [place] [id number] Sep, [facility] [place] [address] [place] [address] [address] [id number] [place] 145529432 Sep, Acute bilateral low back pain without sciatica M54.5 [facility] [place] [address] [place] [address] [address] [id number] [place] 693887154 Aug, Dermatitis L30.9 ; Other insomnia G47.09 and Anxiety F41.9 [facility] [place] [address] [place] [address] [address] [id number] [place] 737168794 Aug, [facility] [place] [address] [place] [address] [address] [id number] [place] 613705659 Aug, Hypertension I10 ; Dyslipidemia E78.5 and Vitamin D deficiency E55.9 [facility] [place] [address] [place] [address] [address] [id number] [place] [id number] Jun, Anxiety F41.9 and Hypertension I10 [facility] [place] [address] [facility] [id number] [place] [address] Jun, [facility] [place] [address] [place] [address] [address] [id number] [place] [id number] Jun, Anxiety F41.9 and Hypertension I10 [facility] [place] [address] [place] [address] [address] [id number] [place] [id number] Jun, [facility] [place] [address] [facility] [address] [id number] [place] 556[address]254 May, [facility] [place] [address] [facility] [address] [id number] [place] 3[address] May, Acute upper back pain M54.9 and Hypertension I10 [facility] [place] [address] [facility] [address] [id number] [place] [id number] Apr, [facility] [place] [address] [facility] [address] [id number] [place] 970361679 Apr, Mid-back pain, acute M54.9 ; Dyslipidemia E78.5 and Hypertension I10 [facility] [place] [address] [facility] [address] [id number] [place] [id number] Apr, [facility] [place] [address] [facility] [address] [id number] [place] 935142765 Apr, [facility] [place] [address] [facility] [address] [id number] [place] 076855874 Feb, Familial hypercholesterolemia E78.0 ; Occlusion and stenosis of left carotid artery I65.22 and Vitamin D deficiency E55.9 [facility] [place] [address] [place] [address] [address] [id number] [place] [id number] Feb, [facility] [place] [address] [facility] [address] [id number] [place] [id number] Feb, Fever, unspecified fever cause R50.9 and Acute non-recurrent maxillary sinusitis J01.00 [facility] [place] [address] [facility] [address] [id number] [place] [id number] Jan, [facility] [place] [address] [facility] [address] [id number] [place] 973195171 Jan, [facility] [place] [address] [facility] [address] [id number] [place] 660705753 Jan, Nodule of neck R22.1 and Night sweats R61 [facility] [place] [address] [facility] [address] [id number] [place] 121556834 Dec, [facility] [place] [address] [facility] [address] [id number] [place] [id number] Dec, [facility] [place] [address] [place] [address] C [id number] [place] 286644705 Nov, [facility] [place] [address] [place] [address] C [id number] [place] [id number] Nov, [facility] [place] [address] [place] [address] C [id number] [place] 710693876 October, Acute upper respiratory infection, unspecified J06.9 ; Other viral agents as the cause of diseases classified elsewhere B97.89 and Calculus of gallbladder without cholecystitis without obstruction K80.20 [facility] [place] [address] [place] [address] C [id number] [place] [id number] Sep, Insomnia, unspecified type G47.00 ; Hypertension I10 and Elevated LFTs R79.89 [facility] [address] [place] [address] C [id number] [place] [id number] Sep, Bleeding after intercourse N93.0 and Dysuria R30.0 [facility] [place] [address] [place] [address] [id number] [place] 210073150 Aug, Dysuria R30.0 and Pyuria N39.0 [facility] [place] [address] [place] [address] C [id number] [place] [id number] Aug, Hypertension I10 ; Insomnia, unspecified type G47.00 and 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 [facility] [place] [address] [place] [address] C [id number] [place] [id number] 12 Jul, 2015 Pain of upper extremity M79.603 ; Hypertension I10 and Pure hypercholesterolemia E78.0 [facility] [place] [address] [place] [address] C [id number] [place] [id number] 09 Jul, 2015 Physical exam, pre-employment Z02.1 ; Visit for TB skin test Z11.1 ; Facial rash R21 and 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 [facility] [place] [address] [place] [address] C [id number] [place] [id number] 04 Jul, 2015 Other and unspecified hyperlipidemia E78.5 ; Vitamin D deficiency E55.9 and Borderline abnormal thyroid function test R94.6 [facility] [address] [id number] [place] [id number] Jun, 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 ; Dyslipidemia E78.5 ; Dyspnea on exertion R06.09 ; Family history of cardiovascular disease Z82.49 and Borderline abnormal thyroid function test R94.[address] [id number] [place] [id number] May, Other emphysema J43.8 ; Smoking F17.200 and Tobacco abuse counseling Z71.[address] C [id number] [place] [address] May, Cough R05 and Other emphysema J43.[address] [id number] [place] [address] Apr, [address] [id number] [place] [id number] Apr, Skin lesion of back L98.9 and Skin lesion L98.[address] [id number] [place] 113[address] Apr, Skin lesion of back L98.9 and Hot flashes N95.[address] [id number] [place] 101[address] Mar, Bronchitis J40 [address] [id number] [place] [address] Mar, Acute pharyngitis, unspecified J02.9 and Upper respiratory infection with cough and congestion J06.[address] [id number] [place] [address] Mar, Bronchitis J40 ; Shortness of breath R06.02 ; Encounter for screening mammogram for breast cancer Z12.31 and Yeast infection B37.[address] [id number] [place] [id number] Jan, Other and unspecified hyperlipidemia 272.4 and Hypothyroidism 244.[address] [id number] [place] [address] Dec, [address] C [id number] [place] 6265[address]157 Nov, Diarrhea 787.91 and Nausea 787.02 [facility] [place] [address] [facility] [address] [id number] [place] [id number] October, Other and unspecified hyperlipidemia 272.4 [facility] [place] [address] [facility] [address] [id number] [place] [id number] October, Lumbago 724.2 [facility] [place] [facility] [address] [facility] [id number] [place] [address] Sep, [facility] [address] [facility] [id number] [place] [address] Sep, [facility] [address] [facility] [id number] [place] [address] Aug, [facility] [place] [address] [facility] [address] [id number] [place] [id number] Aug, [facility] [place] [address] [facility] [address] [id number] [place] 445452586 Jun, [facility] [address] [facility] [id number] [place] [address] Jun, [facility] [address] [facility] [id number], [place] [address] May, [facility] [address] [facility] [id number] [place] [address] May, [facility] [place] [address] [facility] [address] [id number] [place] 874[address] May, [facility] [place] [address] [facility] [address] [id number] [place] 9[address]40[address] Apr, [facility] [place] [facility] [address] [facility] [id number] [place] [address] Apr, [facility] [place] [address] [facility] [address] [id number] [place] [id number] Mar, [facility] [address] [facility] [id number] [place] [address] Mar, [facility] [place] [address] [id number] [place] [id number] Mar, [facility] [place] [facility] [address] [id number] [place] [address] Mar, [facility] [place] [facility] [address] [id number] [place] [address] Mar, [facility] [place] [address] [id number] [place] 912708903 Mar, [facility] [place] [address] [id number] [place] [id number] Feb, [facility] [place] [facility] [address] [id number] [place] [address] Feb, [facility] [place] [address] [id number] [place] [id number] Jan, [facility] [place] [facility] [address] [id number] [place] [address] Jan, [facility] [place] [facility] [address] [id number] [facility] [place] [address] Jan, [facility] [place] [facility] [address] [id number] [facility] [place] [address] Jan, [facility] [place] [address] [id number] [place] [id number] Jan, [facility] [place] [facility] [address] [id number] [facility] [place] [address] Jan, [facility] [place] [address] [id number] [place] [id number] Dec, [facility] [place] [facility] [address] [id number] [facility] [place] [address] Dec, [facility] [place] [facility] [address] [facility] [id number] [facility] [place] [address] Dec, [facility] [place] [facility] [address] [facility] [id number] [facility] [place] [address] Dec, [facility] [place] [address] [id number] [place] 745684545 Dec, [facility] [place] [address] [id number] [place] [id number] Dec, [facility] [address] [id number] [place] [address] Dec, [facility] [place] [address] [id number] [place] [id number] October, [facility] [address] [id number] [place] [address] October, [facility] [address] [id number] [place] [address] October, [facility] [place] [address] [facility] [address] [id number] [place] [id number] Sep, [facility] [address] [facility] [id number] [facility] [place] [address] Sep, [facility] [place] [address] [facility] [address] [id number] [place] [id number] Sep, [facility] [address] [id number] [facility] [place] [address] Sep, [facility] [address] [facility] [id number] [facility] [place] [address] Aug, [facility] [place] [address] [facility] [address] [id number] [place] [id number] Aug, [facility] [address] [facility] [id number] [facility] [place] [address] Jun, [facility] [address] [id number] [place] [address] Jun, [facility] [place] [address] [id number] [place] [id number] Jun, [facility] [place] [address] [facility] [address] [id number] [place] [id number] May, [facility] [address] [facility] [id number] [place] [address] May, [facility] [place] [address] [facility] [id number] [place] [address] May, [facility] [address] [facility] [address] [id number] [place] [id number] May, [facility] [place] [address] [facility] [id number] [place] [id number] Apr, [facility] [place] [address] [facility] [id number], [place] [address] Apr, [facility] [place] [address] [facility] [id number] [place] [address] Feb, [facility] [address] [facility] [id number] [place] [id number] Feb, IMMUNIZATIONS No Known Immunizations SOCIAL HISTORY Never Assessed REASON FOR VISIT XRAY PLAN OF CARE VITAL SIGNS MEDICATIONS No [...]
--- OUTSIDE RECORDS SUMMARY | 2019-04-01 10:56 | XMS REPORT ---
Author Author KEVIN BEJARANO [facility] Address [address] [place] [address] Care Team Providers Care Staff Registered Nurse Name Role Phone KEVIN BEJARANO Unavailable PROBLEMS Type Condition ICD9-CM Code SDK90-YX Code Onset Dates Condition Status SNOMED Code Problem Hot flashes N95.1 Active 626224746 Problem Elevated LFTs R79.89 Active 000628800 Problem Skin lesion of back L98.9 Active 08205802 Problem Familial hypercholesterolemia E78.0 Active 390436962 Problem Smoking F17.200 Active 86535951 Problem Gastroparesis K31.84 Active 061793351 Problem Other insomnia G47.09 Active 726172245 Problem Anxiety F41.9 Active 77841334 Problem Chronic obstructive pulmonary disease, unspecified COPD type J44.9 Active 84632237 Problem Essential hypertension I10 Active 06105939 Problem Family history of cardiovascular disease Z82.49 Active 301165487 Problem Borderline abnormal thyroid function test R94.6 Active 803713477 Problem Other emphysema J43.8 Active 64864170 Problem Atrial tachycardia I47.1 Active 272036684 Problem Primary insomnia F51.01 Active 0627628 Problem Thyroiditis E06.9 Active 96814931 Problem History of thyroidectomy E89.0 Active 153789154 Problem 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 83143837 Problem Vitamin D deficiency E55.9 Active 70990060 Problem Dyspnea on exertion R06.09 Active 89988337 Problem Dyslipidemia E78.5 Active 866012057 Problem Hypertension I10 Active 26989024 Problem Insomnia, unspecified type G47.00 Active 469042771 Problem Other and unspecified hyperlipidemia E78.5 Active 81930138 Problem Facial rash R21 Active 897641320 ALLERGIES No Information ENCOUNTERS Encounter Location Date Diagnosis [facility] [place] [address] [facility] C [id number] [place], [place] [id number] October, Dry mouth, unspecified R68.2 ; Pharyngitis, unspecified etiology J02.9 and Primary insomnia F51.01 [facility] [place] [address] [place] [address] [address] [id number] [place] [id number] October, [facility] [place] [address] [place] [address] [address] [id number] [place] 526586801 Sep, [facility] [place] [address] [place] [address] [address] [id number] [place] [id number] Sep, Hemoptysis R04.2 [facility] [place] [address] [place] [address] [address] [id number] [place] 989378725 Sep, Primary insomnia F51.01 [facility] [place] [address] [place] [address] [address] [id number] [place] 064634020 Sep, Adverse effect of drug, initial encounter T88.7XXA [facility] [place] [address] [place] [address] [address] [id number] [place] [id number] Aug, Adverse effect of drug, initial encounter T88.7XXA [facility] [place] [address] [place] [address] [address] [id number] [place] [id number] Aug, Primary insomnia F51.01 [facility] [place] [address] [place] [address] [address] [id number] [place] [id number] Jul, [facility] [place] [address] [place] [address] [address] [id number] [place] 778191045 Jul, Primary insomnia F51.01 [facility] [address] [facility] [id number] [place] [address] Jul, [facility] [place] [address] [place] [address] [address] [id number] [place] [id number] Jul, Atrial tachycardia I47.1 [facility] [place] [address] [place] [address] [address] [id number] [place] 238230943 Jul, [facility] [place] [address] [place] [address] [address] [id number] [place] 783621742 Jun, Flu-like symptoms R68.89 and Chronic obstructive pulmonary disease, unspecified COPD type J44.9 [facility] [place] [address] [place] [address] [address] [id number] [place] [id number] Jun, [facility] [place] [address] [facility] [address] [id number] [place] 737797582 Jun, [facility] [place] [address] [facility] [address] [id number] [place] [id number] Jun, [facility] [place] [address] [place] [address] [address] [id number] [place] [id number] Jun, Epigastric pain R10.13 ; Diarrhea, unspecified type R19.7 and Non-intractable vomiting without nausea, unspecified vomiting type R11.11 [facility] [address] [facility] [id number] [place] [address] May, [facility] [place] [address] [place] [address] C [id number] [place] [id number] May, Chronic nonintractable headache, unspecified headache type R51 [facility] [place] [address] [place] [address] C [id number] [place] [id number] May, [facility] [place] [address] [place] [address] C [id number] [place] 532748303 May, Essential hypertension I10 ; Thyroiditis E06.9 and Nonintractable episodic headache, unspecified headache type R51 [facility] [place] [address] [place] [address] C [id number] [place] [id number] Feb, Dyslipidemia E78.5 ; Vitamin D deficiency E55.9 and Atherosclerosis of left carotid artery I65.22 [facility] [place] [address] [place] [address] C [id number] [place] [id number] Jan, [facility] [address] [facility] [id number] [place] [address] Dec, [facility] [place] [address] [place] [address] C [id number] [place] 182947528 Dec, Atrial tachycardia I47.1 ; History of thyroidectomy E89.0 ; Primary insomnia F51.01 and Tobacco use Z72.0 [facility] [place] [address] [place] [address] [address] [id number] [place] 827508874 October, Galactorrhea O92.6 [facility] [address] [place] [address] C [id number] [place] 785472792 October, [facility] [place] [address] [facility] [address] [id number] [place] 178992351 October, [facility] [place] [address] [facility] [address] [id number] [place] [id number] October, [facility] [place] [address] [place] [address] [address] [id number] [place] 387941137 October, Cough R05 and Other chest pain R07.89 [facility] [place] [address] [place] [address] [address] [id number] [place] 716097331 Sep, Dysuria R30.0 ; Acute cystitis without hematuria N30.00 and Chest tightness or pressure R07.89 [facility] [place] [address] [place] [address] [address] [id number] [place] [id number] Sep, [facility] [place] [address] [place] [address] [address] [id number] [place] [id number] Sep, Acute bilateral low back pain without sciatica M54.5 [facility] [place] [address] [place] [address] [address] [id number] [place] 382012516 Aug, Dermatitis L30.9 ; Other insomnia G47.09 and Anxiety F41.9 [facility] [place] [address] [place] [address] [address] [id number] [place] [id number] Aug, [facility] [place] [address] [place] [address] [address] [id number] [place] 755785699 Aug, Hypertension I10 ; Dyslipidemia E78.5 and Vitamin D deficiency E55.9 [facility] [place] [address] [place] [address] [address] [id number] [place] 413582907 Jun, Anxiety F41.9 and Hypertension I10 [facility] [address] [facility] [id number] [place] [address] Jun, [facility] [place] [address] [place] [address] [address] [id number] [place] [id number] Jun, Anxiety F41.9 and Hypertension I10 [facility] [place] [address] [place] [address] [address] [id number] [place] 444457038 Jun, [facility] [place] [address] [facility] [address] [id number] [place] [id number] May, [facility] [place] [address] [facility] [address] [id number] [place] [id number] May, Acute upper back pain M54.9 and Hypertension I10 [facility] [place] [address] [facility] [address] [id number] [place] [id number] Apr, [facility] [place] [address] [facility] [address] [id number] [place] [id number] Apr, Mid-back pain, acute M54.9 ; Dyslipidemia E78.5 and Hypertension I10 [facility] [place] [address] [place] [address] [address] [id number] [place] [id number] Apr, [facility] [place] [address] [facility] [address] [id number] [place] [id number] Apr, [facility] [place] [address] [facility] [address] [id number] [place] 886339153 Feb, Familial hypercholesterolemia E78.0 ; Occlusion and stenosis of left carotid artery I65.22 and Vitamin D deficiency E55.9 [facility] [place] [address] [place] [address] [address] [id number] [place] [id number] Feb, [facility] [place] [address] [place] [address] [address] [id number] [place] [id number] Feb, Fever, unspecified fever cause R50.9 and Acute non-recurrent maxillary sinusitis J01.00 [facility] [place] [address] [facility] [address] [id number] [place] 996308349 Jan, [facility] [place] [address] [facility] [address] [id number] [place] 729061650 Jan, [facility] [place] [address] [facility] [address] [id number] [place] 923386363 Jan, Nodule of neck R22.1 and Night sweats R61 [facility] [place] [address] [facility] [address] [id number] [place] [id number] Dec, [facility] [place] [address] [facility] [address] [id number] [place] [id number] Dec, [facility] [place] [address] [place] [address] C [id number] [place] 900083110 Nov, [facility] [place] [address] [place] [address] C [id number] [place] [id number] Nov, [facility] [place] [address] [place] [address] C [id number] [place] 494371110 October, Acute upper respiratory infection, unspecified J06.9 ; Other viral agents as the cause of diseases classified elsewhere B97.89 and Calculus of gallbladder without cholecystitis without obstruction K80.20 [facility] [place] [address] [place] [address] C [id number] [place] 548374782 Sep, Insomnia, unspecified type G47.00 ; Hypertension I10 and Elevated LFTs R79.[address] C [id number] [place] 783272640 Sep, Bleeding after intercourse N93.0 and Dysuria R30.0 [facility] [address] [place] [address] [id number] [place] [id number] Aug, Dysuria R30.0 and Pyuria N39.0 [facility] [address] [place] [address] C [id number] [place] [id number] Aug, Hypertension I10 ; Insomnia, unspecified type G47.00 and 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 [facility] [place] [address] [place] [address] C [id number] [place] [id number] 12 Jul, 2015 Pain of upper extremity M79.603 ; Hypertension I10 and Pure hypercholesterolemia E78.0 [facility] [place] [address] [place] [address] C [id number] [place] [id number] 09 Jul, 2015 Physical exam, pre-employment Z02.1 ; Visit for TB skin test Z11.1 ; Facial rash R21 and 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 [facility] [place] [address] [place] [address] C [id number] [place] [id number] 04 Jul, 2015 Other and unspecified hyperlipidemia E78.5 ; Vitamin D deficiency E55.9 and Borderline abnormal thyroid function test R94.6 [facility] [address] [id number] [place] [id number] Jun, 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 ; Dyslipidemia E78.5 ; Dyspnea on exertion R06.09 ; Family history of cardiovascular disease Z82.49 and Borderline abnormal thyroid function test R94.[address] C [id number] [place] [id number] May, Other emphysema J43.8 ; Smoking F17.200 and Tobacco abuse counseling Z71.[address] C [id number] [place] 854396444 May, Cough R05 and Other emphysema J43.[address] [id number] [place] 477255080 Apr, [address] C [id number] [place] 307982204 Apr, Skin lesion of back L98.9 and Skin lesion L98.[address] [id number] [place] [id number] Apr, Skin lesion of back L98.9 and Hot flashes N95.[address] C [id number] [place], [place] [id number] Mar, Bronchitis J40 [address] [id number] [place] [id number] Mar, Acute pharyngitis, unspecified J02.9 and Upper respiratory infection with cough and congestion J06.[address] C [id number] [place], [place] [id number] Mar, Bronchitis J40 ; Shortness of breath R06.02 ; Encounter for screening mammogram for breast cancer Z12.31 and Yeast infection B37.[address] C [id number] [place] 810366984 Jan, Other and unspecified hyperlipidemia 272.4 and Hypothyroidism 244.[address] [id number] [place] [id number] Dec, [address] C [id number] [place] 374353806 Nov, Diarrhea 787.91 and Nausea 787.02 [facility] [place] [address] [facility] [address] [id number] [place] [id number] October, Other and unspecified hyperlipidemia 272.4 [facility] [place] [address] [facility] [address] [id number] [place] 267959688 October, Lumbago 724.2 [facility] [place] [facility] [address] [facility] [id number] [place] [address] Sep, [facility] [address] [facility] [id number] [place] [address] Sep, [facility] [address] [facility] [id number] [place] [address] Aug, [facility] [place] [address] [facility] [address] [id number] [place] [id number] Aug, [facility] [place] [address] [facility] [address] [id number] [place] [id number] Jun, [facility] [address] [facility] [id number] [place] [address] Jun, [facility] [address] [facility] [id number] [place] [address] May, [facility] [address] [facility] [id number] [place] [address] May, [facility] [place] [address] [facility] [address] [id number] [place] [id number] May, [facility] [place] [address] [facility] [address] [id number] [place] [id number] Apr, [facility] [address] [facility] [id number] [place] [address] Apr, [facility] [place] [address] [facility] [address] [id number] [place] [id number] Mar, [facility] [address] [facility] [id number] [place] [address] Mar, [facility] [place] [address] [id number] [place] [id number] Mar, [facility] [place] [facility] [address] [id number] [place] [address] Mar, [facility] [place] [facility] [address] [id number] [place] [address] Mar, [facility] [place] [address] [id number] [place] 708142456 Mar, [facility] [place] [address] [id number] [place] 999683857 Feb, [facility] [place] [facility] [address] [id number] [place] [address] Feb, [facility] [place] [address] [id number] [place] 289552723 Jan, [facility] [place] [facility] [address] [id number] [place] [address] Jan, [facility] [place] [facility] [address] [id number] [facility] [place] [address] Jan, [facility] [place] [facility] [address] [facility] [id number] [facility] [place] [address] Jan, [facility] [place] [address] [id number] [place] [id number] Jan, [facility] [place] [facility] [address] [id number] [facility] [place] [address] Jan, [facility] [place] [address] [id number] [place] [id number] Dec, [facility] [place] [facility] [address] [id number] [facility] [place] [address] Dec, [facility] [place] [facility] [address] [facility] [id number] [facility] [place] [address] Dec, [facility] [place] [facility] [address] [facility] [id number] [place] [address] Dec, [facility] [place] [address] [id number] [place] [id number] Dec, [facility] [place] [address] [id number] [place] [id number] Dec, [facility] [address] [id number] [place] [address] Dec, [facility] [place] [address] [id number] [place] 713595231 October, [facility] [address] [id number] [place] [address] October, [facility] [address] [id number] [place] [address] October, [facility] [place] [address] [facility] [address] [id number] [place] [id number] Sep, [facility] [place] [facility] [address] [facility] [id number] [facility] [place] [address] Sep, [facility] [place] [address] [facility] [address] [id number] [place] [id number] Sep, [facility] [address] [facility] [id number] [facility] [place] [address] Sep, [facility] [address] [facility] [id number] [facility] [place] [address] Aug, [facility] [place] [address] [facility] [address] [id number] [place] [id number] Aug, [facility] [address] [facility] [id number] [facility] [place] [address] Jun, [facility] [address] [id number] [place] [address] Jun, [facility] [place] [address] [id number] [place] [id number] Jun, [facility] [place] [address] [id number] [place] [id number] May, [facility] [address] [facility] [id number] [place] [address] May, [facility] [address] [facility] [id number] [place] [address] May, [facility] [place] [address] [facility] [address] [id number] [place] 782000962 May, [facility] [place] [address] [facility] [id number] [place] [id number] Apr, [facility] [address] [facility] [id number] [place] [address] Apr, [facility] [address] [facility] [id number] [place] [address] Feb, [facility] [address] [facility] [id number] [place] [id number] Feb, IMMUNIZATIONS No Known Immunizations SOCIAL HISTORY Never Assessed REASON FOR VISIT Medication question PLAN OF CARE VITAL SIGNS MEDICATIONS Medication Instructions Dosage Frequency Start Date End Date Duration Status Ambien 5 mg Orally Once a day at bedtime PRN for sleep Take 1 tablet Aug, 28 days Active RESULTS No Results PROCEDURES [...]
--- OUTSIDE RECORDS SUMMARY | 2019-04-01 10:57 | XMS REPORT | Continuity of Care Document ---
Author Organization Unknown Address Unknown Phone Unavailable Allergies Active Description Code Type Severity Reaction Onset Reported/Identified Relationship to Patient Clinical Status Yes Iodine 852 Drug Allergy Unknown N/A Yes No Allergy Information Available [id number] Drug Allergy Unknown N/A 02/23/2019 Yes codeine [id number] Drug Allergy Unknown N/A 03/09/2019 Yes fentanyl [id number] Drug Allergy Unknown N/A 03/09/2019 Yes Iodinated Contrast Media [id number] Drug Allergy Unknown N/A 03/09/2019 Yes Iodinated Contrast- Oral and IV Dye [id number] Drug Allergy Unknown N/A 03/09/2019 Medications Medication Packaging Start Date Stop Date Route Dosage Sig DOCUSATE SODIUM 12/10/2016 12/10/2016 BIDPRN ACETAMINOPHEN 12/10/2016 12/10/2016 Q4HPRN ACETAMINOPHEN 12/10/2016 12/10/2016 Q4HPRN ALUM-MAG HYDROXIDE-SIMETH 12/10/2016 12/10/2016 Q4HPRN MAGNESIUM HYDROXIDE 12/10/2016 12/10/2016 HSPRN ACETAMINOPHEN 12/10/2016 12/10/2016 Q4HPRN ALUM-MAG HYDROXIDE-SIMETH 12/10/2016 12/10/2016 PRN MAGNESIUM HYDROXIDE 12/10/2016 12/10/2016 PRN ZOLPIDEM 12/10/2016 12/10/2016 HSPRN SODIUM CHLORIDE 0.9 % 12/10/2016 12/10/2016 PRNIV NITROGLYCERIN 12/10/2016 12/10/2016 PRNCP ALBUTEROL SULFATE 12/10/2016 12/10/2016 Q4-6HPRN TIOTROPIUM BROMIDE 12/10/2016 12/10/2016 QDRT DIPHENHYDRAMINE HCL 12/10/2016 12/10/2016 ONCE METHYLPREDNISOLONE SODIUM SUCC 12/10/2016 12/10/2016 ONCE SERTRALINE 12/10/2016 12/10/2016 QD ASPIRIN EC 12/10/2016 12/10/2016 0700 HYDROCHLOROTHIAZIDE 12/10/2016 12/10/2016 QD VERAPAMIL 12/10/2016 12/10/2016 QD PANTOPRAZOLE 12/10/2016 12/10/2016 ACB VERAPAMIL 12/10/2016 12/10/2016 QD EZETIMIBE 12/10/2016 12/10/2016 PM ROSUVASTATIN 12/10/2016 12/10/2016 HS SUCRALFATE 12/10/2016 12/10/2016 ACBHS hydrOXYzine PAMOATE 12/10/2016 12/10/2016 HS ERGOCALCIFEROL (VITAMIN D2) 12/16/2016 12/10/2016 MON J1 Problems Date Dx Coded Attending Type Code Diagnosis Diagnosed By 03/09/2013 FAB MELENDREZ MD 401.1 HYPERTENSION, BENIGN ESSENTIAL 03/09/2013 FAB MELENDREZ MD 465.9 UPPER RESPIRATORY INFECTION 03/09/2013 ESHA KO DO 401.1 HYPERTENSION, BENIGN ESSENTIAL 03/09/2013 ESHA KO DO 465.9 UPPER RESPIRATORY INFECTION 03/09/2013 JC BETTENCOURT MD 401.1 HYPERTENSION, BENIGN ESSENTIAL 03/09/2013 JC BETTENCOURT MD 465.9 UPPER RESPIRATORY INFECTION 03/09/2013 FAB MELENDREZ MD 401.1 HYPERTENSION, BENIGN ESSENTIAL 03/09/2013 FAB MELENDREZ MD 465.9 UPPER RESPIRATORY INFECTION 03/09/2013 FAB MELENDREZ MD 401.1 HYPERTENSION, BENIGN ESSENTIAL 03/09/2013 FAB MELENDREZ MD 465.9 UPPER RESPIRATORY INFECTION 03/09/2013 JC BETTENCOURT MD 401.1 HYPERTENSION, BENIGN ESSENTIAL 03/09/2013 JC BETTENCOURT MD 465.9 UPPER RESPIRATORY INFECTION 03/09/2013 FAB MELENDREZ MD 401.1 HYPERTENSION, BENIGN ESSENTIAL 03/09/2013 FAB MELENDREZ MD 465.9 UPPER RESPIRATORY INFECTION 03/09/2013 FAB MELENDREZ MD 401.1 HYPERTENSION, BENIGN ESSENTIAL 03/09/2013 FAB MELENDREZ MD 465.9 UPPER RESPIRATORY INFECTION 03/09/2013 JC BETTENCOURT MD 401.1 HYPERTENSION, BENIGN ESSENTIAL 03/09/2013 JC BETTENCOURT MD 465.9 UPPER RESPIRATORY INFECTION 03/09/2013 FAB MELENDREZ MD 401.1 HYPERTENSION, BENIGN ESSENTIAL 03/09/2013 FAB MELENDREZ MD 465.9 UPPER RESPIRATORY INFECTION 06/08/2013 KO DO, ESHA K 272.4 HYPERLIPIDEMIA 06/08/2013 KO DO, ESHA K 796.9 OTHER NONSPECIFIC ABNORMAL FINDINGS 06/08/2013 JC BETTENCOURT MD 272.4 HYPERLIPIDEMIA 06/08/2013 JC BETTENCOURT MD 796.9 OTHER NONSPECIFIC ABNORMAL FINDINGS 06/08/2013 FAB MELENDREZ MD 272.4 HYPERLIPIDEMIA 06/08/2013 FAB MELENDREZ MD 796.9 OTHER NONSPECIFIC ABNORMAL FINDINGS 06/08/2013 FAB MELENDREZ MD 272.4 HYPERLIPIDEMIA 06/08/2013 FAB MELENDREZ MD 796.9 OTHER NONSPECIFIC ABNORMAL FINDINGS 06/08/2013 JC BETTENCOURT MD 272.4 HYPERLIPIDEMIA 06/08/2013 JC BETTENCOURT MD 796.9 OTHER NONSPECIFIC ABNORMAL FINDINGS 06/08/2013 FAB MELENDREZ MD 272.4 HYPERLIPIDEMIA 06/08/2013 FAB MELENDREZ MD 796.9 OTHER NONSPECIFIC ABNORMAL FINDINGS 06/08/2013 FAB MELENDREZ MD 272.4 HYPERLIPIDEMIA 06/08/2013 FAB MELENDREZ MD 796.9 OTHER NONSPECIFIC ABNORMAL FINDINGS 06/08/2013 JC BETTENCOURT MD 272.4 HYPERLIPIDEMIA 06/08/2013 JC BETTENCOURT MD 796.9 OTHER NONSPECIFIC ABNORMAL FINDINGS 06/08/2013 FAB MELENDREZ MD 272.4 HYPERLIPIDEMIA 06/08/2013 FAB MELENDREZ MD 796.9 OTHER NONSPECIFIC ABNORMAL FINDINGS 07/08/2013 JC BETTENCOURT MD 794.8 NONSPECIFIC ABNORMAL RESULTS OF FUNCTION STUDY OF LIVER 07/08/2013 FAB MELENDREZ MD 794.8 NONSPECIFIC ABNORMAL RESULTS OF FUNCTION STUDY OF LIVER 07/08/2013 FAB MELENDREZ MD 794.8 NONSPECIFIC ABNORMAL RESULTS OF FUNCTION STUDY OF LIVER 07/08/2013 JC BETTENCOURT MD 794.8 NONSPECIFIC ABNORMAL RESULTS OF FUNCTION STUDY OF LIVER 07/08/2013 FAB MELENDREZ MD 794.8 NONSPECIFIC ABNORMAL RESULTS OF FUNCTION STUDY OF LIVER 07/08/2013 FAB MELENDREZ MD 794.8 NONSPECIFIC ABNORMAL RESULTS OF FUNCTION STUDY OF LIVER 07/08/2013 JC BETTENCOURT MD 794.8 NONSPECIFIC ABNORMAL RESULTS OF FUNCTION STUDY OF LIVER 07/08/2013 FAB MELENDREZ MD 794.8 NONSPECIFIC ABNORMAL RESULTS OF FUNCTION STUDY OF LIVER 01/07/2014 FAB MELENDREZ MD 709.9 UNSPECIFIED DISORDER OF SKIN AND SUBCUTANEOUS TISSUE 01/07/2014 FAB MELENDREZ MD V65.42 COUNSELING - SMOKING CESSATION 01/07/2014 FAB MELENDREZ MD V76.19 OTHER SCREENING BREAST EXAMINATION 01/07/2014 FAB MELENDREZ MD 709.9 UNSPECIFIED DISORDER OF SKIN AND SUBCUTANEOUS TISSUE 01/07/2014 FAB MELENDREZ MD V65.42 COUNSELING - SMOKING CESSATION 01/07/2014 FAB MELENDREZ MD V76.19 OTHER SCREENING BREAST EXAMINATION 01/07/2014 JC BETTENCOURT MD 709.9 UNSPECIFIED DISORDER OF SKIN AND SUBCUTANEOUS TISSUE 01/07/2014 JC BETTENCOURT MD V65.42 COUNSELING - SMOKING CESSATION 01/07/2014 JC BETTENCOURT MD V76.19 OTHER SCREENING BREAST EXAMINATION 01/07/2014 FAB MELENDREZ MD 709.9 UNSPECIFIED DISORDER OF SKIN AND SUBCUTANEOUS TISSUE 01/07/2014 FAB MELENDREZ MD V65.42 COUNSELING - SMOKING CESSATION 01/07/2014 FAB MELENDREZ MD V76.19 OTHER SCREENING BREAST EXAMINATION 01/07/2014 FAB MELENDREZ MD 709.9 UNSPECIFIED DISORDER OF SKIN AND SUBCUTANEOUS TISSUE 01/07/2014 FAB MELENDREZ MD V65.42 COUNSELING - SMOKING CESSATION 01/07/2014 FAB MELENDREZ MD V76.19 OTHER SCREENING BREAST EXAMINATION 01/07/2014 JC BETTENCOURT MD 709.9 UNSPECIFIED DISORDER OF SKIN AND SUBCUTANEOUS TISSUE 01/07/2014 JC BETTENCOURT MD V65.42 COUNSELING - SMOKING CESSATION 01/07/2014 JC BETTENCOURT MD V76.19 OTHER SCREENING BREAST EXAMINATION 01/07/2014 FAB MELENDREZ MD 709.9 UNSPECIFIED DISORDER OF SKIN AND SUBCUTANEOUS TISSUE 01/07/2014 AFB MELENDREZ MD V65.42 COUNSELING - SMOKING CESSATION 01/07/2014 FAB MELENDREZ MD V76.19 OTHER SCREENING BREAST EXAMINATION 04/25/2014 FAB MELENDREZ MD 466.0 BRONCHITIS, ACUTE 04/25/2014 FAB MELENDREZ MD 466.0 BRONCHITIS, ACUTE 04/25/2014 SINGER ORTEGA, JC Armijo 466.0 BRONCHITIS, ACUTE 04/25/2014 PARVIN ORTEGA, FAB Armijo 466.0 BRONCHITIS, ACUTE 07/11/2014 SINGER ORTEGA, JC Armijo 724.2 BACK PAIN, LOWER 07/11/2014 SINGER ORTEGA, JC Armijo 796.3 NONSPECIFIC LOW BLOOD PRESSURE READING 07/11/2014 PARVIN ORTEGA, FAB Armijo 724.2 BACK PAIN, LOWER 07/11/2014 PARVIN ORTEGA, FAB Armijo 796.3 NONSPECIFIC LOW BLOOD PRESSURE READING 09/23/2014 PARVIN ORTEGA, FAB Armijo 536.3 GASTROPARESIS 09/23/2014 PARVIN ORTEGA, FAB Armijo 564.00 CONSTIPATION 09/23/2014 PARVIN ORTEGA, FAB Armijo 789.07 ABDOMINAL PAIN GENERALIZED 02/23/2017 CHAPIS REDDY E78.5 HYPERLIPIDEMIA, UNSPECIFIED [facility] 02/23/2017 CHAPIS REDDY S F17.210 NICOTINE DEPENDENCE, CIGARETTES, UNCOMPLICATED REUSSSHREYAS [facility]IS 02/23/2017 CHAPIS REDDY S I10 ESSENTIAL (PRIMARY) HYPERTENSION [facility] 02/23/2017 CHAPIS REDDY S J43.9 EMPHYSEMA, UNSPECIFIED [facility] 02/23/2017 CHAPIS REDDY S K31.84 GASTROPARESIS [facility] 02/23/2017 CHAPIS REDDY S R06.09 OTHER FORMS OF DYSPNEA [facility] 02/23/2017 CHAIPS REDDY P R07.89 OTHER CHEST PAIN [facility] 02/23/2017 CHAPIS RDEDY A R07.9 CHEST PAIN, UNSPECIFIED [facility] 02/23/2017 CHAPIS REDDY S Z79.82 INSPECTOR CASING (CURRENT) USE OF ASPIRIN [facility] 02/23/2017 CHAPIS REDDY S Z79.899 OTHER INSPECTOR CASING (CURRENT) DRUG THERAPY [facility] 03/08/2017 MIRACLE STALLINGS P R06.02 SHORTNESS OF BREATH MIRACLE STALLINGS 04/15/2017 Tristen ORTEGA, Audelia F17.200 Tobacco abuse 08/03/2018 Tristen ORTEGA, Audelia N81.10 Cystocele Midline 08/03/2018 Tristen ORTEGA, Audelia Z68.24 BMI 24-24.9 08/25/2018 Tristen ORTEGA, Audelia B37.9 Yeast infection 09/24/2018 Tristen ORTEGA, Audelia Z68.24 BMI 24-24.9 03/09/2019 ROCHELLE DOTY DO Ot Z01.818 ENCOUNTER FOR OTHER PREPROCEDURAL EXAMIN 03/16/2019 ROCHELLE DOTY DO Ot J44.9 CHRONIC OBSTRUCTIVE PULMONARY DISEASE, U 03/16/2019 ROCHELLE DOTY DO Ot R04.2 HEMOPTYSIS 03/16/2019 ROCHELLE DOTY DO Ot Z72.0 TOBACCO USE Procedures Code [place] [address] CBC 03/09/2013 46411 CMP 03/09/2013 18631 TSH 03/09/2013 9817251 GFR CALC (RESULT ONLY) 03/09/2013 31556 ROUTINE VENIPUNCTURE 06/03/2013 1773858 GFR CALC (RESULT ONLY) 06/03/2013 09775 CMP 06/03/2013 96978 CMP 07/08/2013 78551 LIPID PANEL 07/08/2013 4071740 GFR CALC (RESULT ONLY) 07/08/2013 65407 IRON SERUM 07/13/2013 23093 IRON BNDNG CAP 07/13/2013 32939 TRANSFERRIN 07/13/2013 04094 HEPATITIS PROFILE 07/13/2013 57017 FERRITIN 07/13/2013 31177 ROUTINE VENIPUNCTURE 07/18/2013 RADHAENT ADELA BROWN 07/18/2013 IRGROUP IRON GROUP (Iron,TIBC, Ferritin) 07/18/2013 22097 ROUTINE VENIPUNCTURE 01/10/2014 24868 CMP 01/10/2014 91930 LIPID PANEL 01/10/2014 96147 TSH 01/10/2014 30567 MAMMOGRAM, SCREENING 01/17/2014 J7613 ALBUTEROL UNIT DOSE FORM INHALED 04/25/2014 86950 NEBULIZER TREATMENT 04/25/2014 77234 ROUTINE VENIPUNCTURE 05/23/2014 40547 CRP 05/23/2014 67213 CPK 05/23/2014 6580981 GFR CALC (RESULT ONLY) 05/23/2014 45345 CMP 05/23/2014 22444 LIPID PANEL 05/23/2014 08275 MAGNESIUM 05/23/2014 46630 URIC ACID 05/23/2014 13009 VITAMIN D 25-HYDROXY (D2,D3, TOTAL) 05/23/2014 80234 TSH 05/23/2014 23531 CBC 05/23/2014 20166 A1C (RML) 05/23/2014 17504 FIBRINOGEN 05/26/2014 77888 LIPOPROTEIN "A" 05/26/2014 49189 UA LONG DIP 07/11/2014 41817 ROUTINE VENIPUNCTURE 09/23/2014 27225 XRAY ABDOMEN 2 VIEWS 09/23/2014 72923 CMP 09/23/2014 53855 LIPID PANEL 09/23/2014 52895 VITAMIN D 25-HYDROXY (D2,D3, TOTAL) 09/23/2014 90091 CPK 09/23/2014 Results Test Result Range HOLD SPECIMEN FOR BLOOD BANK - 12/10/16 11:29 HOLD SPECIMEN FOR BLOOD BANK [facility] - COMPREHENSIVE METABOLIC PANEL - 12/10/16 11:29 GLUCOSE 108 mg/dl 74-106 BUN 9 mg/dl 7-18 CREATININE 0.85 mg/dl 0.55-1.02 eGFR >60 mL/min >60 SODIUM (NA) 141 mEq/L 136-146 POTASSIUM, BLOOD 3.6 mEq/L 3.5-5.1 CHLORIDE 105 mEq/L 98-107 CO2 (BICARBONATE) 26 mEq/L 21-32 CALCIUM 9.1 mg/dl 8.5-10.1 ALBUMIN, SERUM 4.1 g/dl 3.4-5.0 PROTEIN, TOTAL 7.8 g/dl 6.4-8.2 AST (SGOT) 32 U/L 15-37 ALT (SGPT) 58 U/L 14-59 ALK PHOS 95 U/L 46-116 BILIRUBIN, TOTAL 0.3 mg/dl 0.2-1.0 LIPID PANEL - 12/10/16 11:29 CHOLESTEROL 303 mg/dl <=199 HDL CHOLESTEROL 28 mg/dl 40-60 TRIGLYCERIDES 376 mg/dl <=200 LDL, CALCULATED 199.8 mg/dl 0.0-99.0 VLDL, CALCULATED 75.2 mg/dl 0.0-130.0 CARDIAC RISK 11 CBC NO DIFF (HEMOGRAM) - 12/10/16 11:29 WBC - WHITE CELL COUNT 6.9 X10(3) 4.5-11.0 RBC - RED CELL COUNT 4.87 X10(6) 4.20- 5.40 PLATELET COUNT 190 X10(3) 150-450 HEMOGLOBIN 15.8 g/dl 12.0-16.0 HEMATOCRIT 43.9 % 38.0-47.0 MCV 90.1 fL 80.0-96.0 MCH 32 pg 27-31 MCHC 36.0 % 32.0-36.0 VITAMIN D, 25-H - 03/10/17 08:44 VITAMIN D,25-OH,TOTAL,IA 76 ng/mL 30-100 CBC - 05/26/17 16:36 WHITE BLOOD CELL COUNT 6.7 Thousand/uL 3.8-10.8 RED BLOOD CELL COUNT 4.79 Million/uL 3.80-5.10 HEMOGLOBIN 15.1 g/dL 11.7-15.5 HEMATOCRIT 43.3 % 35.0-45.0 MCV 90.4 fL 80.0-100.0 MCH 31.5 pg 27.0-33.0 MCHC 34.9 g/dL 32.0-36.0 RDW 12.6 % 11.0-15.0 PLATELET COUNT 196 Thousand/uL 140-400 MPV 10.2 fL 7.5-12.5 ABSOLUTE NEUTROPHILS 3296 cells/uL 6902-0294 ABSOLUTE LYMPHOCYTES 2714 cells/uL 850-3900 ABSOLUTE MONOCYTES 489 cells/uL 200-950 ABSOLUTE EOSINOPHILS 141 cells/uL 15-500 ABSOLUTE BASOPHILS 60 cells/uL 0-200 NEUTROPHILS 49.2 % NRG LYMPHOCYTES 40.5 % NRG MONOCYTES 7.3 % NRG EOSINOPHILS 2.1 % NRG BASOPHILS 0.9 % NRG CMP - 06/25/17 16:00 GLUCOSE 108 mg/dL 65-99 UREA NITROGEN (BUN) 15 mg/dL 7-25 CREATININE 0.96 mg/dL 0.50-1.05 eGFR NON-AFR. DOMINICAN 68 mL/min/1.73m2 > OR=60 eGFR 78 mL/min/1.73m2 > OR=60 BUN/CREATININE RATIO NOT APPLICABLE (calc) 6-22 SODIUM 140 mmol/L 135-146 POTASSIUM 3.9 mmol/L 3.5-5.3 CHLORIDE 104 mmol/L 98-110 CARBON DIOXIDE 25 mmol/L 20-31 CALCIUM 9.7 mg/dL 8.6-10.4 PROTEIN, TOTAL 7.4 g/dL 6.1-8.1 ALBUMIN 4.7 g/dL 3.6-5.1 GLOBULIN 2.7 g/dL (calc) 1.9-3.7 ALBUMIN/GLOBULIN RATIO 1.7 (calc) 1.0-2.5 BILIRUBIN, TOTAL 0.4 mg/dL 0.2-1.2 ALKALINE PHOSPHATASE 81 U/L 33-130 AST 23 U/L 10-35 ALT 38 U/L 6-29 CBC w/MANUAL DIFF - 06/25/17 16:00 WHITE BLOOD CELL COUNT 11.1 Thousand/uL 3.8-10.8 RED BLOOD CELL COUNT 5.01 Million/uL 3.80-5.10 HEMOGLOBIN 15.9 g/dL 11.7-15.5 HEMATOCRIT 46.1 % 35.0-45.0 MCV 92.0 fL 80.0-100.0 MCH 31.7 pg 27.0-33.0 MCHC 34.5 g/dL 32.0-36.0 RDW 12.7 % 11.0-15.0 PLATELET COUNT 222 Thousand/uL 140-400 MPV 10.3 fL 7.5-12.5 ABSOLUTE NEUTROPHILS 7659 cells/uL 9029-0977 ABSOLUTE MONOCYTES 444 cells/uL 200-950 ABSOLUTE EOSINOPHILS 111 cells/uL 15-500 ABSOLUTE BASOPHILS 0 cells/uL 0-200 NEUTROPHILS 69.0 % NRG LYMPHOCYTES 19.0 % NRG MONOCYTES 4.0 % NRG EOSINOPHILS 1.0 % NRG BASOPHILS 0 % NRG ABSOLUTE BAND NEUTROPHILS 777 cells/uL 0-750 ABSOLUTE LYMPHOCYTES 2109 cells/uL 850-3900 BAND NEUTROPHILS 7.0 % NRG PLATELET ESTIMATION ADEQUATE ADEQUATE COMMENT(S) NRG LIPASE - 06/25/17 16:00 LIPASE 9 U/L 7-60 CMP - 08/01/17 08:32 GLUCOSE 102 mg/dL 65-99 UREA NITROGEN (BUN) 8 mg/dL 7-25 CREATININE 0.79 mg/dL 0.50-1.05 eGFR NON-AFR. DOMINICAN 85 mL/min/1.73m2 > OR=60 eGFR 99 mL/min/1.73m2 > OR=60 BUN/CREATININE RATIO NOT APPLICABLE (calc) 6-22 SODIUM 140 mmol/L 135-146 POTASSIUM 4.1 mmol/L 3.5-5.3 CHLORIDE 107 mmol/L 98-110 CARBON DIOXIDE 23 mmol/L 20-31 CALCIUM 9.4 mg/dL 8.6-10.4 PROTEIN, TOTAL 7.2 g/dL 6.1-8.1 ALBUMIN 4.5 g/dL 3.6-5.1 GLOBULIN 2.7 g/dL (calc) 1.9-3.7 ALBUMIN/GLOBULIN RATIO 1.7 (calc) 1.0-2.5 BILIRUBIN, TOTAL 0.4 mg/dL 0.2-1.2 ALKALINE PHOSPHATASE 80 U/L 33-130 AST 31 U/L 10-35 ALT 43 U/L 6-29 LH - 01/01/18 17:48 LH 51.6 mIU/mL [facility] PATHOLOGY REPORT (TISSUE PAHOLOGY) - 09/08/18 15:44 A SOURCE NRG A GROSS DESCRIPTION NRG A DIAGNOSIS NR CLINICAL INFORMATION [facility] PATHOLOGIST NR CULTURE, URINE - 11/12/18 09:43 CULTURE, URINE, ROUTINE SEE NOTE NRG CBC - 01/29/19 09:05 WHITE BLOOD CELL COUNT 5.1 Thousand/uL 3.8-10.8 RED BLOOD CELL COUNT 4.56 Million/uL 3.80-5.10 HEMOGLOBIN 14.5 g/dL 11.7-15.5 HEMATOCRIT 42.2 % 35.0-45.0 MCV 92.5 fL 80.0-100.0 MCH 31.8 pg 27.0-33.0 MCHC 34.4 g/dL 32.0-36.0 RDW 13.3 % 11.0-15.0 PLATELET COUNT 162 Thousand/uL 140-400 MPV 10.1 fL 7.5-12.5 ABSOLUTE NEUTROPHILS 2504 cells/uL 6285-6557 ABSOLUTE LYMPHOCYTES 1836 cells/uL 850-3900 ABSOLUTE MONOCYTES 587 cells/uL 200-950 ABSOLUTE EOSINOPHILS 122 cells/uL 15-500 ABSOLUTE BASOPHILS 51 cells/uL 0-200 NEUTROPHILS 49.1 % NRG LYMPHOCYTES 36.0 % NRG MONOCYTES 11.5 % NRG EOSINOPHILS 2.4 % NRG BASOPHILS 1.0 % NRG TSH - 01/29/19 09:05 TSH 1.61 mIU/L NRG CMP - 02/17/19 09:50 GLUCOSE 90 mg/dL 65-139 UREA NITROGEN (BUN) 7 mg/dL 7-25 CREATININE 0.87 mg/dL 0.50-1.05 eGFR NON-AFR. DOMINICAN 75 mL/min/1.73m2 > OR=60 eGFR 87 mL/min/1.73m2 > OR=60 BUN/CREATININE RATIO NOT APPLICABLE (calc) 6-22 SODIUM 141 mmol/L 135-146 POTASSIUM 4.2 mmol/L 3.5-5.3 CHLORIDE 106 mmol/L 98-110 CARBON DIOXIDE 23 mmol/L 20-32 CALCIUM 9.7 mg/dL 8.6-10.4 PROTEIN, TOTAL 7.2 g/dL 6.1-8.1 ALBUMIN 4.6 g/dL 3.6-5.1 GLOBULIN 2.6 g/dL (calc) 1.9-3.7 ALBUMIN/GLOBULIN RATIO 1.8 (calc) 1.0-2.5 BILIRUBIN, TOTAL 0.3 mg/dL 0.2-1.2 ALKALINE PHOSPHATASE 90 U/L 33-130 AST 31 U/L 10-35 ALT 36 U/L 6-29 CBC - 02/17/19 09:50 WHITE BLOOD CELL COUNT 7.8 Thousand/uL 3.8-10.8 RED BLOOD CELL COUNT 4.76 Million/uL 3.80-5.10 HEMOGLOBIN 15.0 g/dL 11.7-15.5 HEMATOCRIT 45.2 % 35.0-45.0 MCV 95.0 fL 80.0-100.0 MCH 31.5 pg 27.0-33.0 MCHC 33.2 g/dL 32.0-36.0 RDW 13.5 % 11.0-15.0 PLATELET COUNT 216 Thousand/uL 140-400 MPV 9.5 fL 7.5-12.5 ABSOLUTE NEUTROPHILS 3962 cells/uL 4435-1827 ABSOLUTE LYMPHOCYTES 2933 cells/uL 850-3900 ABSOLUTE MONOCYTES 530 cells/uL 200-950 ABSOLUTE EOSINOPHILS 281 cells/uL 15-500 ABSOLUTE BASOPHILS 94 cells/uL 0-200 NEUTROPHILS 50.8 % NRG LYMPHOCYTES 37.6 % NRG MONOCYTES 6.8 % NRG EOSINOPHILS 3.6 % NRG BASOPHILS 1.2 % NRG Sputum Gram stain - 03/11/19 08:25 Sputum Gram stain NO BACTERIA SEEN NRG Bacteria identification in bronchial specimen by aerobe culture - 03/11/19 08:25 QUANTITY OF GROWTH . NRG Bacteria identification in bronchial specimen by aerobe culture USUAL RESP NRG FTX;REPORTABLE >10,000 CFU/ML NRG FREE TEXT ENTRY 2 SUSCEPTIBILITY REPORTED 03/14 12:25 NRG Dirithromycin susceptibility test by disk diffusion - 03/11/19 08:25 Gentamicin susceptibility test by minimum inhibitory concentration <= NRG Trimethoprim/sulfamethoxazole susceptibility test by minimum inhibitoryconcentration <= NRG Levofloxacin susceptibility test by minimum inhibitory concentration <= NRG Ampicillin susceptibility test by minimum inhibitory concentration > NRG Cefazolin susceptibility test by minimum inhibitory concentration <= NRG Ceftriaxone susceptibility test by minimum inhibitory concentration <= NRG Piperacillin/tazobactam susceptibility test by minimum inhibitory concentration = NRG Ciprofloxacin susceptibility test by minimum inhibitory concentration <= NRG Meropenem susceptibility test by minimum inhibitory concentration <= NRG Amoxicillin and clavulanate potassium susc RADHA <= NRG Imipenem susceptibility test by minimum inhibitory concentration <= NRG Mycobacterium species detection by organism specific culture - 03/11/19 08:25 Fungus culture - 03/11/19 08:25 QUANTITY OF GROWTH Rare NRG Fungus culture [id number] NRG Mycobacterium species detection by organism specific culture - 03/11/19 08:28 Sputum Gram stain - 03/11/19 08:28 Sputum Gram stain NO BACTERIA SEEN NRG Bacteria identification in bronchial specimen by aerobe culture - 03/11/19 08:28 QUANTITY OF GROWTH . NRG Bacteria identification in bronchial specimen by aerobe culture USUAL RESP NRG FTX;REPORTABLE 300 CFU/ML NRG Fungus culture - 03/11/19 08:28 Encounters ACCT No. Visit Date/Time Discharge Status Pt. Type Provider Facility Loc./Unit Complaint [id number] 03/03/2017 14:05:00 03/03/2017 14:05:00 DIS Outpatient MIRACLE STALLINGS [facility] RA SOA, DYSPNEA [id number] 12/10/2016 11:04:00 12/10/2016 19:50:00 DIS Outpatient CHAPIS REDDY [facility] 110 chest pain [id number] 01/15/2019 20:08:00 ACT Unknown Tristen ORTEGA, Audelia [id number] 03/24/2019 15:04:00 03/24/2019 23:59:59 CLS Preadmit ROCHELLE DOTY DO [facility] RT COPD,COUGH,DYSPNEA,TOBACCO USER,SLEEP DISORDER [id number] 03/11/2019 07:10:00 03/11/2019 10:05:00 DIS Outpatient ROCHELLE DOTY DO [facility] ENDO COPD,CHRONIC COUGH [id number] 03/09/2019 05:50:00 03/09/2019 14:37:00 DIS Outpatient SOREN VILLAGOMEZ ROCHELLE Kalyan [facility] PREOP BRONCHOSCOPY [id number] 02/23/2019 15:22:00 02/23/2019 23:59:59 CLS Outpatient ROCHELLE DOTY DO [facility] RAD COPD,COUGH [id number] 09/23/2014 15:48:00 09/23/2014 23:59:59 CLS Outpatient FAB MELENDREZ MD [id number] 07/11/2014 10:49:00 07/11/2014 23:59:59 CLS Outpatient JC BETTENCOURT MD [id number] 05/23/2014 07:51:00 05/23/2014 23:59:59 CLS Outpatient FAB MELENDREZ MD [id number] 04/25/2014 15:06:00 04/25/2014 23:59:59 CLS Outpatient FAB MELENDREZ MD [id number] 04/08/2014 08:46:00 04/08/2014 23:59:59 CLS Outpatient JC BETTENCOURT MD [id number] 02/18/2014 09:04:00 02/18/2014 23:59:59 CLS Outpatient FAB MELENDREZ MD [id number] 01/10/2014 07:52:00 01/10/2014 23:59:59 CLS Outpatient FAB MELENDREZ MD [id number] 07/08/2013 08:24:00 07/08/2013 23:59:59 CLS Outpatient JC BETTENCOURT MD [id number] 06/08/2013 09:08:00 06/08/2013 23:59:59 CLS Outpatient ESHA KO DO [id number] 03/09/2013 13:48:00 03/09/2013 23:59:59 [place] [id number] 01/29/2019 08:20:00 01/29/2019 23:59:59 [facility] [address] [id number] 02/17/2019 08:40:00 Document Registration [id number] 01/29/2019 08:20:00 Document Registration [id number] 11/12/2018 09:20:00 Document Registration [id number] 09/08/2018 11:00:00 Document Registration [id number] 01/01/2018 16:40:00 Document Registration [id number] 08/01/2017 08:20:00 Document Registration [id number] 06/25/2017 13:40:00 Document Registration [id number] 05/26/2017 16:00:00 Document Registration [id number] 03/10/2017 08:20:00 Document Registration [email or web address] 01/16/2019 00:38:06 ACT Document Registration
== END 2019-03-11 10:05 | disposition home or self-care (01) ==
LOC: ENDO 07:10
PROVIDERS: ATTEND Internal Medicine Critical Care Medicine
DX: J43.9 Emphysema, unspecified (principal); J30.89 Other allergic rhinitis; Z91.041 Radiographic dye allergy status; Z88.5 Allergy status to narcotic agent; Z88.8 Allergy status to other drugs, medicaments and biological substances; F17.210 Nicotine dependence, cigarettes, uncomplicated
CPT/HCPCS: 71045; 87015; 87070; 87077; 87101; 87116; 87186; 87205; 87206; 94640